=== PATIENT | female | born 1990 | race Caucasian/White ===

== ENCOUNTER 2023-03-09 10:09 | Outpatient (OUT) | payer BC, MEDICAID, SELFPAY ==
--- NOTE | 2023-03-09 | US_ITS ---
[place] [id number] Patient Name: JESENIA SUAREZ MRN: [id number] date: 1990 Sex: F Assigned Patient Location: US Current Patient Location: LAB Accession/Order Number: [id number] Exam Date: 03/09/2023 10:11 Report Date: 03/09/2023 12:19 At the request of: SANTOSH BARLOW Procedure: US OB transvaginal EXAMINATION: US OB transvaginal HISTORY: MISSED MENSES COMPARISON: No relevant comparison available. FINDINGS: Guzman intrauterine gestation Gestational sac: 3.95 cm, 9 weeks 2 days CRL: 2.94 cm, 9 weeks 5 days Yolk sac: 4.0 mm Heart rate: 174 bpm Uterus: Normal, anteverted, anteflexed Cervix: 3.6 cm, closed The ovaries are normal in appearance. Right ovarian corpus luteal cyst US/US OB transvaginal IMPRESSION: Viable intrauterine gestation measuring 9 weeks 5 days Electronically authenticated by: BEBO JORGE Date: 03/09/2023 12:19
== END 2023-03-09 10:10 | disposition home or self-care (01) ==
LOC: US 10:09
PROVIDERS: PCP Family Medicine; Visit Provider Obstetrics & Gynecology
DX: Z34.91 Encounter for supervision of normal pregnancy, unspecified, first trimester (principal); Z3A.09 9 weeks gestation of pregnancy
CPT/HCPCS: 36415; 76817; 83036; 84443; 85025; 86592; 86762; 86803; 86850; 86900; 86901; 87086; 87340; 87389

== ENCOUNTER 2023-03-09 11:30 | Outpatient (OUT) | payer BC, MEDICAID, SELFPAY ==
[2023-03-09 12:22] LABS: Basophils Percent Auto 0.5 % (0.2-2.0); Eosinophils Absolute Auto 0.1 10^3/uL (0.0-0.7); Eosinophils Percent Auto 1.3 % (0.9-7.0); Hematocrit 35.4 % (36.0-48.0); Hemoglobin 11.5 g/dL (12.0-16.0); Immature Granulocytes Abs Auto 0.03 10^3/uL (0.00-0.03); Immature Granulocytes Pct Auto 0.4 % (0.0-0.5); Lymphocytes Absolute Auto 2.2 10^3/uL (1.2-3.8); Lymphocytes Percent Auto 26.7 % (20.5-60.0); Mean Corpuscular HGB Conc 32.5 g/dL (29.9-35.2); Mean Corpuscular Hemoglobin 25.1 pg (26.7-34.0); Mean Corpuscular Volume 77.3 fL (81.0-99.0); Mean Platelet Volume 9.8 fL (9.5-13.5); Monocytes Absolute Auto 0.5 10^3/uL (0.3-0.8); Monocytes Percent Auto 5.8 % (1.7-12.0); Neutrophils Absolute Auto 5.4 10^3/uL (1.4-6.5); Neutrophils Percent Auto 65.3 % (43.0-75.0); Platelet Count 249 10^3/uL (150-450); Red Blood Count 4.58 10^6/uL (4.20-5.40); Red Cell Distribution Width 14.2 % (11.0-15.0); White Blood Count 8.2 10^3/uL (4.0-11.0)
[2023-03-09 12:42] LABS: Estimated Average Glucose 91 mg/dL; Glycohemoglobin A1C 4.8 % (4.5-6.2)
[2023-03-09 12:48] LABS: Thyroid Stimulating Hormone 1.085 uIU/mL (0.358-3.740)
[2023-03-10 06:09] LABS: HBsAg Screen Negative (Negative); HCV Ab Non Reactive (Non Reactive); HIV Ab/p24 Ag Screen Non Reactive (Non Reactive)
[2023-03-10 07:09] LABS: Rubella Antibodies, IgG 2.15 index (Immune >0.99)
[2023-03-10 11:11] LABS: Rapid Plasma Reagin, Quant Non Reactive titer (NonRea<1:1)
== END 2023-03-09 11:31 | disposition home or self-care (01) ==
PROVIDERS: PCP Family Medicine; Visit Provider Obstetrics & Gynecology
DX: Z34.80 Encounter for supervision of other normal pregnancy, unspecified trimester (principal)
CPT/HCPCS: 36415; 83036; 84443; 85025; 86592; 86762; 86803; 86850; 86900; 86901; 87086; 87340; 87389

== ENCOUNTER 2023-05-07 11:48 | Outpatient (OUT) | payer BC, MEDICAID, SELFPAY ==
--- OUTSIDE RECORDS SUMMARY | 2023-05-07 11:56 | XMS_ITS | CCD ---
Author Name Unknown Address [address] [place] [address] Organization [facility] Care Team Providers Care Payment Processor Name Role Phone DIAZ .DARRIN Consulting Unavailable FURLONG, DR SAULO Krishna Primary Care Unavailable DIAZ ., DARRIN Attending Unavailable DIAZ ., DARRIN Admitting Unavailable CAIN ., DR FROST Consulting Unavailable FURLONG, DR SAULO Krishna Primary Care Unavailable CAIN ., DR FROST Attending Unavailable CAIN ., DR FROST Admitting Unavailable ZIEBER, DR VILMA Webb Consulting Unavailable SARITA, DR BEBO Chowdhury Consulting Unavailable FURLONG, DR SAULO Krishna Primary Care Unavailable CAIN ., DR FROST Attending Unavailable CAIN ., DR FROST Admitting Unavailable CAIN ., DR FROST Consulting Unavailable IAIN, MONTRELL Consulting Unavailable FURLONG, DR SAULO Krishna Primary Care Unavailable IAIN, MONTRELL Attending Unavailable IAIN, MONTRELL Admitting Unavailable CAIN ., DR FROST Consulting Unavailable FURLONG, DR SAULO Krishna Primary Care Unavailable CAIN ., DR FROST Attending Unavailable CAIN ., DR FROST Admitting Unavailable FURLONG, DR SAULO Krishna Primary Care Unavailable CAIN ., DR FROST Attending Unavailable CAIN ., DR FROST Admitting Unavailable PAY ., DR GARLAND Consulting Unavailable PAY ., DR GARLAND Attending Unavailable PAY ., DR GARLAND Admitting Unavailable FURLONG, DR SAULO Krishna Primary Care Unavailable CAIN ., DR FROST Consulting Unavailable FURLONG, DR SAULO Krishna Primary Care Unavailable CAIN ., DR FROST Attending Unavailable CAIN ., DR FROST Admitting Unavailable HILLARY MURPHY Consulting Unavailable LORENZO GARZA Consulting Unavailable CAIN ., DR FROST Procedure Practitioner Unavail able ZIEBER, DR VILMA Webb Consulting Unavailable REQUEST, DR PARSONS LISTED Primary Care Unavaila ble DIAZ ., DARRIN Attending Unavailable DIAZ ., DARRIN Admitting Unavailable DIAZ ., DARRIN Consulting Unavailable CAIN ., DR FROST Consulting Unavailable FURLONG, DR SAULO Krishna Primary Care Unavailable CAIN ., DR FROST Attending Unavailable CAIN ., DR FROST Admitting Unavailable CAIN ., DR FROST Consulting Unavailable FURLONG, DR SAULO Krishna Primary Care Unavailable CAIN ., DR FROST Attending Unavailable CAIN ., DR FROST Admitting Unavailable CAIN ., DR FROST Consulting Unavailable FURLONG, DR SAULO Krishna Primary Care Unavailable CAIN ., DR FROST Attending Unavailable CAIN ., DR FROST Admitting Unavailable CAIN ., DR FROST Consulting Unavailable FURLONG, DR SAULO Krishna Primary Care Unavailable CAIN ., DR FROST Attending Unavailable CAIN ., DR FROST Admitting Unavailable ZIEBER, DR VILMA Webb Consulting Unavailable DIAZ ., DARRIN Consulting Unavailable FURLONG, DR SAULO Krishna Primary Care Unavailable CAIN ., DR FROST Attending Unavailable CAIN ., DR FROST Admitting Unavailable CAIN, SANTOSH Attending Unavailable HEALTH, 360 Referring Unavailable ROMAN GUSTAFSON Primary Care Unavailable Allergies Allergy Classification Reported Allergen(s) Allergy Type Date of Onset Reaction(s) Facility (1 source) Penicillins; Translations: [PENICILLINS] Propensity to adverse reactions to drug (disorder) 7 [facility] Rep[facility] Problems Active Problems Problem Classification Problem Date Documented Date Episodic/Chronic Esophageal disorders (1 source) Gastro-esophageal reflux disease without esophagitis; Translations: [GERD WITHOUT ESOPHAGITIS] Onset: 08-11-2022 Chronic Menstrual disorders (4 sources) Irregular menstruation, unspecified; Translations: [IRREGULAR MENSTRUATION UNSPECIFIED] Onset: 01-17-2022 Chronic OB-related trauma to perineum and vulva (1 source) Fourth degree perineal laceration during delivery; Translations: [FOURTH DEG PERINEAL LAC DUR DELIV] Onset: 08-11-2022 Episodic Other aftercare (1 source) 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; Translations: [OTH BILINGUAL ACCOUNT MANAGER CURRENT DRUG THERAPY] Onset: 08-11-2022 Episodic Other complications of ; puerperium affecting management of mother (3 sources) Streptococcus B carrier state complicating childbirth; Translations: [STREP B MARIEE STATE COMP CHILDBIRTH] Onset: 08-02-2022 Episodic Other complications of ; puerperium affecting management of mother (1 source) Diseases of the digestive system complicating childbirth; Translations: [DZ DIGESTIVE SYSTEM COMP CHILDBIRTH] Onset: 08-11-2022 Episodic Other complications of (4 sources) Uterine size-date discrepancy, third trimester; Translations: [UTERINE SZ-DATE DISCREPANCY 3RD TRI] Onset: 06-15-2022 Episodic Other complications of (4 sources) Other viral diseases complicating , third trimester; Translations: [OTH VIRAL DZ COMP PREG THIRD TRI] Onset: 06-02-2022 Episodic Other female genital disorders (4 sources) Albachermias; Translations: [MITTELSCHMERZ] Onset: 11-12-2021 Chronic Other and delivery including normal (20 sources) Encounter for routine follow-up; Translations: [Single live ] Onset: 01-17-2022 Episodic Residual codes; unclassified (1 source) 39 weeks gestation of ; Translations: [39 WEEKS GESTATION OF ] Onset: 08-11-2022 Episodic Residual codes; unclassified (1 source) 32 weeks gestation of ; Translations: [32 WEEKS GESTATION OF ] Onset: 06-24-2022 Episodic Residual codes; unclassified (1 source) 31 weeks gestation of ; Translations: [31 WEEKS GESTATION OF ] Onset: 06-05-2022 Episodic Residual codes; unclassified (1 source) Illness, unspecified; Translations: [Illness, unspecified] Onset: 04-23-2023 Episodic Screening and history of mental health and substance abuse codes (1 source) Personal history of nicotine dependence; Translations: [PERSONAL HISTORY OF NICOTINE DEPEND] Onset: 08-11-2022 Episodic Viral infection (1 source) COVID-19; Translations: [COVID-19] Onset: 06-05-2022 Past or Other Problems Problem Classification Problem Date Documented Date Episodic/Chronic Immunizations and screening for infectious disease (2 sources) Contact with and (suspected) exposure to infections with a predominantly sexual mode of transmission; Translations: [Encounter for screening for human papillomavirus (HPV)] Onset: 04-21-2022 Episodic Other complications of (1 source) Maternal care for other abnormalities of pelvic organs, first trimester; Translations: [[facility]N PELV ORGAN 1ST TRI] Onset: 01-02-2022 Episodic Other female genital disorders (5 sources) Other specified noninflammatory disorders of vagina; Translations: [OTH SPEC NONINFLAMMATORY D/O VAGINA] Onset: 04-20-2022 Episodic Other screening for suspected conditions (not mental disorders or infectious disease) (12 sources) Encounter for screening for malignant neoplasm of cervix; Translations: [Encounter for screening, unspecified] Onset: 11-09-2021 Episodic Ovarian cyst (1 source) Other ovarian cyst, right side; Translations: [OTHER OVARIAN CYST RIGHT SIDE] Onset: 11-15-2021 Episodic Residual codes; unclassified (1 source) 8 weeks gestation of ; Translations: [8 WEEKS GESTATION OF ] Onset: 01-02-2022 Episodic Results Test Name Value Interpretation Reference Range Facility VZV IgG IA Ql (S)on 04-23-19 24 VARICELLA IgG 0.7 AI Normal <0.9 [facility] Comment on above: Result Comment: Interpretation-------- <0.9 Negative 0.9 - 1.0 Equivocal >1.0 Positive Performed By: #### 1 5410-4 #### [facility] ([id number]) [address], [address] [place] [address] CBC AUTO DIFFon 08-04-2022 BASO # 0.0 103/ul Normal 0.0-0.1 [facility] Comment on above: Performed By: #### C BC #### [facility] [address] [address] [address] Yassine Zarate Basophils/100 WBC (Bld) 0.3 % Normal 0.2-2.0 [facility] Comment on above: Performed By: #### C BC #### [facility] [address] [address] [address] Yassine Zarate EO # 0.1 103/ul Normal 0.0-0.7 [facility] Comment on above: Performed By: #### C BC #### [facility] [address] [address] [address] Yassine Zarate Eosinophils/100 WBC (Bld) 0.8 % Critically low 0.9-7.0 [facility] Comment on above: Performed By: #### C BC #### [facility] [address] [place] [address] Dr. Yassine Zarate Erythrocyte distribution width (RBC) [Ratio] 14.1 % Normal 11.0-15.0 [facility] Comment on above: Performed By: #### C BC #### [facility] [address] [place] [address] Dr. Yassine Zarate Hematocrit (Bld) [Volume fraction] 31.8 % Critically low 36.0-48.0 [facility] Comment on above: Performed By: #### C BC #### [facility] [address] [place] [address] Dr. Yassine Zarate Hemoglobin (Bld) [Mass/Vol] 10.3 g/dL Critically low 12.0-16.0 [facility] Comment on above: Performed By: #### C BC #### [facility] [address] [place] [address] Dr. Yassine Zarate IG # 0.10 10e3/ul Critically high 0.00-0.03 [facility] Comment on above: Performed By: #### C BC #### [facility] [address] [place] [address] Dr. Yassine Zarate IG % 0.8 % Critically high 0.0-0.5 [facility] Comment on above: Performed By: #### C BC #### [facility] [address] [place] [address] Dr. Yassine Zarate LYMPH # 1.9 103/ul Normal 1.2-3.8 [facility] Comment on above: Performed By: #### C BC #### [facility] [address] [place] [address] Dr. Yassine Zarate Lymphocytes/100 WBC (Bld) 14.1 % Critically low 20.5-60.0 [facility] Comment on above: Performed By: #### C BC #### [facility] [address] [address] [address] Yassine Zarate MANUAL DIFF REQ NO Normal [facility] Comment on above: Performed By: #### C BC #### [facility] [address] [place] [address] Dr. Yassine Zarate MCH (RBC) [Entitic mass] 25.6 pg Critically low 26.7-34.0 [facility] Comment on above: Performed By: #### C BC #### [facility] [address] [place] [address] Dr. Yassine Zarate MCHC (RBC) [Mass/Vol] 32.4 g/dL Normal 29.9-35.2 [facility] Comment on above: Performed By: #### C BC #### [facility] [address] [place] [address] Dr. Yassine Zarate MCV (RBC) [Entitic vol] 79.1 fL Critically low 81.0-99.0 [facility] Comment on above: Performed By: #### C BC #### [facility] [address] [place] [address] Dr. Yassine Zarate MONO # 0.9 103/ul Critically high 0.3-0.[address] [facility] Comment on above: Performed By: #### C BC #### [facility] [address] [place] [address] Dr. Yassine Zarate Monocytes/100 WBC (Bld) 6.6 % Normal 1.7-12.0 [facility] Comment on above: Performed By: #### C BC #### [facility] [address] [place] [address] Dr. Yassine Zarate NEUT # 10.3 103/ul Critically high 1.4-6.5 The [facility] Comment on above: Performed By: #### C BC #### [facility] [address] [place] [address] Dr. Yassine Zarate Neutrophils/100 WBC (Bld) 77.4 % Critically high 43.0-75.0 [facility] Comment on above: Performed By: #### C BC #### [facility] [address] [address] [address] Yassine Zarate Platelet mean volume (Bld) [Entitic vol] 9.6 fL Normal 9.5-13.5 [facility] Comment on above: Performed By: #### C BC #### [facility] [address] [place] [address] Dr. Yassine Zarate PLT 251 103/ul Normal 150-450 [facility] Comment on above: Performed By: #### C BC #### [facility] [address] [address] [address] Yassine Zarate RBC 4.02 106/ul Critically low 4.20-5.40 [facility] Comment on above: Performed By: #### C BC #### [facility] [address] [place] [address] Dr. Yassine Zarate WBC 13.3 103/ul Critically high 4.0-11.0 [facility] Comment on above: Performed By: #### C BC #### [facility] [address] [place] [address] Dr. Yassine Zarate CBC AUTO DIFFon 08-02-2022 BASO # 0.1 103/ul Normal 0.0-0.1 [facility] Comment on above: Performed By: #### C BC #### [facility] [address] [place] [address] Dr. Yassine Zarate Basophils/100 WBC (Bld) 0.5 % Normal 0.2-2.0 [facility] Comment on above: Performed By: #### C BC #### [facility] [address] [place] [address] Dr. Yassine Zarate EO # 0.1 103/ul Normal 0.0-0.7 [facility] Comment on above: Performed By: #### C BC #### [facility] [address] [place] [address] Dr. Yassine Zarate Eosinophils/100 WBC (Bld) 1.1 % Normal 0.9-7.0 [facility] Comment on above: Performed By: #### C BC #### [facility] [address] [address] [address] Yassine Zarate Erythrocyte distribution width (RBC) [Ratio] 13.9 % Normal 11.0-15.0 [facility] Comment on above: Performed By: #### C BC #### [facility] [address] [place] [address] Dr. Yassine Zarate Hematocrit (Bld) [Volume fraction] 34.8 % Critically low 36.0-48.0 [facility] Comment on above: Performed By: #### C BC #### [facility] [address] [place] [address] Dr. Yassine Zarate Hemoglobin (Bld) [Mass/Vol] 11.5 g/dL Critically low 12.0-16.0 [facility] Comment on above: Performed By: #### C BC #### [facility] [address] [place] [address] Dr. Yassine Zarate IG # 0.15 10e3/ul Critically high 0.00-0.03 [facility] Comment on above: Performed By: #### C BC #### [facility] [address] [place] [address] Dr. Yassine Zarate IG % 1.3 % Critically high 0.0-0.5 [facility] Comment on above: Performed By: #### C BC #### [facility] [address] [place] [address] Dr. Yassine Zarate LYMPH # 2.5 103/ul Normal 1.2-3.8 [facility] Comment on above: Performed By: #### C BC #### [facility] [address] [place] [address] Dr. Yassine Zarate Lymphocytes/100 WBC (Bld) 20.6 % Normal 20.5-60.0 [facility] Comment on above: Performed By: #### C BC #### [facility] [address] [place] [address] Dr. Yassine Zarate MANUAL DIFF REQ NO Normal [facility] Comment on above: Performed By: #### C BC #### [facility] [address] [address] [address] Yassine Zarate MCH (RBC) [Entitic mass] 25.6 pg Critically low 26.7-34.0 [facility] Comment on above: Performed By: #### C BC #### [facility] [address] [place] [address] Dr. Yassine Zarate MCHC (RBC) [Mass/Vol] 33.0 g/dL Normal 29.9-35.2 [facility] Comment on above: Performed By: #### C BC #### [facility] [address] [place] [address] Dr. Yassien Zarate MCV (RBC) [Entitic vol] 77.5 fL Critically low 81.0-99.0 [facility] Comment on above: Performed By: #### C BC #### [facility] [address] [place] [address] Dr. Yassine Zarate MONO # 0.7 103/ul Normal 0.3-0.8 [facility] Comment on above: Performed By: #### C BC #### [facility] [address] [place] [address] Dr. Yassine Zarate Monocytes/100 WBC (Bld) 6.1 % Normal 1.7-12.0 [facility] Comment on above: Performed By: #### C BC #### [facility] [address] [place] [address] Dr. Yassine Zarate NEUT # 8.4 103/ul Critically high 1.4-6.[address] [facility] Comment on above: Performed By: #### C BC #### [facility] [address] [place] [address] Dr. Yassine Zarate Neutrophils/100 WBC (Bld) 70.4 % Normal 43.0-75.0 [facility] Comment on above: Performed By: #### C BC #### [facility] [address] [place] [address] Dr. Yassine Zarate Platelet mean volume (Bld) [Entitic vol] 9.6 fL Normal 9.5-13.5 [facility] Comment on above: Performed By: #### C BC #### [facility] [address] [address] [address] Yassine Zarate PLT 294 103/ul Normal 150-450 [facility] Comment on above: Performed By: #### C BC #### [facility] [address] [address] [address] Yassine Zarate RBC 4.49 106/ul Normal 4.20-5.40 [facility] Comment on above: Performed By: #### C BC #### [facility] [address] [address] [address] Yassine Zarate WBC 11.9 103/ul Critically high 4.0-11.0 [facility] Comment on above: Performed By: #### C BC #### [facility] [address] [place] [address] Dr. Yassine Zarate DRUG SCREEN RAPID (URINE)on 08-02-2022 AMP Negative Normal NEGATIVE [facility] Comment on above: Performed By: #### D RUGRPD #### [facility] [address] [place] [address] Dr. Yassine Zarate BAR Negative Normal NEGATIVE [facility] Comment on above: Performed By: #### D RUGRPD #### [facility] [address] [place] [address] Dr. Yassine Zarate BUP Negative Normal NEGATIVE [facility] Comment on above: Performed By: #### D RUGRPD #### [facility] [address] [place] [address] Dr. Yassine Zarate BZO Negative Normal NEGATIVE [facility] Comment on above: Performed By: #### D RUGRPD #### [facility] [address] [place] [address] Dr. Yassine Zarate RACIEL Negative Normal NEGATIVE [facility] Comment on above: Performed By: #### D RUGRPD #### [facility] [address] [place] [address] Dr. Yassine Zarate CUT-OFFS SEE BELOW Normal [facility] Comment on above: Result Comment: AMP (Amphetamine): 500ng/mL, BAR (Barbituates): 200 ng/mL, BZO (Benzodiazepines): 150 ng/mL, BUP (Buprenorphine): 10 ng/mL, RACIEL (Cocaine): 150 ng/mL, mAMP (Methamphetamine): 500 ng/mL, MTD (Methadone): 200 ng/mL, OPI (Opiates): 100 ng/mL, OXY (Oxycodone): 100 ng/mL, PCP (Phencyclidine): 25 ng/mL, PPX (Propoxyphene): 300 ng/mL, THC (Cannabinoids): 50 ng/mL, TCA (Trycyclic Antidepressants): 300 ng/mL Performed By: #### D RUGRPD #### [facility] [address] [place] [address] Dr. Yassine Zarate DRUG CUT HEADER DRUG CLASS TEST SYSTEM CUT-OFF CONCENTRATIONS ARE FOLLOWS: Normal [facility] Comment on above: Performed By: #### D RUGRPD #### [facility] [address] [place] [address] Dr. Yassine Zarate mAMP Negative Normal NEGATIVE [facility] Comment on above: Performed By: #### D RUGRPD #### [facility] [address] [place] [address] Dr. Yassine Zarate MTD Negative Normal NEGATIVE [facility] Comment on above: Performed By: #### D RUGRPD #### [facility] [address] [place] [address] Dr. Yassine Zarate OPI Negative Normal NEGATIVE [facility] Comment on above: Performed By: #### D RUGRPD #### [facility] [address] [place] [address] Dr. Yassine Zarate OXY Negative Normal NEGATIVE [facility] Comment on above: Performed By: #### D RUGRPD #### [facility] [address] [place] [address] Dr. Yassine Zarate PCP Negative Normal NEGATIVE [facility] Comment on above: Performed By: #### D RUGRPD #### [facility] [address] [place] [address] Dr. Yassine Zarate PPX Negative Normal NEGATIVE [facility] Comment on above: Performed By: #### D RUGRPD #### [facility] [address] [address] [address] Yassine Zarate TCA Negative Normal NEGATIVE [facility] Comment on above: Performed By: #### D RUGRPD #### [facility] [address] [place] [address] Dr. Yassine Zarate THC Negative Normal NEGATIVE [facility] Comment on above: Performed By: #### D RUGRPD #### [facility] [address] [address] [address] Yassine Zarate TYPE AND SCREENon 08-02-2022 TYPE AND SCREEN Negative Normal [facility] Comment on above: Performed By: #### C BC #### [facility] [address] [place] [address] Dr. Yassine Zarate GROUP B STREP CULTUREon S. agalactiae Ag Ql (Unsp spec) Isolate 1 Streptococcus agalactiae Moderate growth of ORGANISM 1 Streptococcus agalactiae ANTIBIOTIC M.I.C RX STATUS Benzylpenicillin <=0.06 S F Ampicillin <=0.25 S F Cefotaxime <=0.12 S F Ceftriaxone <=0.12 S F Levofloxacin 0.5 S F Inducible Clindamycin Resistance Neg NEG F Erythromycin <=0.12 S F Clindamycin <=0.25 S F Linezolid <=2 S F Vancomycin 0.5 S F Tetracycline >=16 R F Normal [facility] Comment on above: Performed By: #### C BC #### [facility] [address] [place] [address] Dr. Yassine Zarate US PREG GROWTHon 06-15-2022 US PREG GROWTH EXAMINATION: US PREG GROWTH HISTORY: Uterine size for dates discrepancy COMPARISON: Ultrasound anatomy 03/21/2022 FINDINGS: Heart Rate: 141.0 bpm Number: 1.0 Position: CEPHALIC Amniotic Fluid Volume: 12.7 cm Maximum Vertical Pocket: 4.5 cm BIOMETRY: BPD: 8.1 cm cm; 32 weeks 2 days; 28% HC: 29.4 cmcm; 32 weeks 3 days; 9% AC: 28.0 cm cm; 32 weeks 0 days; 27% FL: 6.2 cm cm; 31 weeks 6 days; 16% EFW: 1894.8 grams; 19% FL/AC: 22.0 FL/BPD: 76.4 HC/AC: 1.1 GESTATIONAL AGE: Age by EDC: 32 weeks 6 days THA by EDC: 08/04/2022 Age by US: 32 weeks 1 day THA by US: 08/09/2022 IMPRESSION: 1. Single live intrauterine with growth detailed above. Electronically authenticated by: VILMA IRISH Date: 2022-06-15 15:[address] [facility] PAP ACOG PANEL 2: 21 to 29on 04-25-2022 . . Normal [facility] Comment on above: Performed By: #### C BC #### [facility] [address] [address] [address] Yassine Zarate Age Gdln ACOG Testing - [facility] Comment on above: Performed By: #### C BC #### [facility] [address] [place] [address] Dr. Yassine Zarate DIAGNOSIS: Comment [facility] Comment on above: Result Comment: NEGA TIVE FOR INTRAEPITHELIAL LESION OR MALIGNANCY. CELLULAR CHANGES ASSOCIATED WITH INFLAMMATION ARE PRESENT. Performed By: #### C BC #### [facility] [address] [address] [address] Yassine Zarate Methodology: Comment [facility] Comment on above: Result Comment: This liquid based ThinPrep(R) pap test was screened with the use of an image guided system. Performed By: #### C BC #### [facility] [address] [address] [address] Yassine Zarate Note: Comment [facility] Comment on above: Result Comment: The Pap smear is a screening test designed to aid in the detection of premalignant and malignant conditions of the uterine cervix. It is not a diagnostic procedure and should not be used as the sole means of detecting cervical cancer. Both false-positive and false-negative reports do occur. . Performed By: #### C BC #### [facility] [address] [place] [address] Dr. Yassine Zarate Performed by: Comment [facility] Comment on above: Result Comment: Marko Christensen, Caisson Worker (ASCP) Performed By: #### C BC #### [facility] [address] [place] [address] Dr. Yassine Zarate Reflex Criteria: Comment Normal [facility] Comment on above: Result Comment: The HPV DNA reflex criteria were not met with this specimen result therefore, no HPV testing was performed. . Performed By: #### C BC #### [facility] [address] [place] [address] Dr. Yassine Zarate Specimen adequacy: Comment Normal [facility] Comment on above: Result Comment: Sati sfactory for evaluation. No endocervical component is identified. Performed By: #### C BC #### [facility] [address] [place] [address] Dr. Yassine Zarate CHLAMYDIA/GONOCOCCUS SARAH (SW AB/URINE/PAPon 04-24-2022 Chlamydia trachomatis, SARAH Negative Normal Negative [facility] Comment on above: Performed By: #### C BC #### [facility] [address] [place] [address] Dr. Yassine Zarate Neisseria gonorrhoeae, SARAH Negative Normal Negative [facility] Comment on above: Performed By: #### C BC #### [facility] [address] [place] [address] Dr. Yassine Zarate VAGINITIS/VAGINOSIS DNA PROB Emmanuel 04-22-2022 Radha species Positive Abnormal Negative [facility] Comment on above: Performed By: #### V AGINT #### [facility] [address] [place] [address] Dr. Yassine Zarate Gardnerella vaginalis Negative Normal Negative [facility] Comment on above: Performed By: #### V AGINT #### [facility] [address] [place] [address] Dr. Yassine Zarate Trichomonas vaginalis Negative Normal Negative [facility] Comment on above: Performed By: #### V AGINT #### [facility] [address] [place] [address] Dr. Yassine Zarate CBC AUTO DIFFon 04-20-2022 BASO # 0.0 103/ul Normal 0.0-0.1 [facility] Comment on above: Performed By: #### C BC #### [facility] [address] [address] [address] Yassine Zarate Basophils/100 WBC (Bld) 0.4 % Normal 0.2-2.0 [facility] Comment on above: Performed By: #### C BC #### [facility] [address] [address] [address] Yassine Zarate EO # 0.1 103/ul Normal 0.0-0.7 [facility] Comment on above: Performed By: #### C BC #### [facility] [address] [address] [address] Yassine Zarate Eosinophils/100 WBC (Bld) 1.0 % Normal 0.9-7.0 [facility] Comment on above: Performed By: #### C BC #### [facility] [address] [address] [address] Yassine Zarate Erythrocyte distribution width (RBC) [Ratio] 12.3 % Normal 11.0-15.0 [facility] Comment on above: Performed By: #### C BC #### [facility] [address] [address] [address] Yassine Zarate Hematocrit (Bld) [Volume fraction] 34.8 % Critically low 36.0-48.0 [facility] Comment on above: Performed By: #### C BC #### [facility] [address] [address] [address] Yassine Zarate Hemoglobin (Bld) [Mass/Vol] 11.4 g/dL Critically low 12.0-16.0 [facility] Comment on above: Performed By: #### C BC #### [facility] [address] [address] [address] Yassine Zarate IG # 0.07 10e3/ul Critically high 0.00-0.03 [facility] Comment on above: Performed By: #### C BC #### [facility] [address] [address] [address] Yassine Zarate IG % 0.8 % Critically high 0.0-0.5 [facility] Comment on above: Performed By: #### C BC #### [facility] [address] [place] [address] Dr. Yassine Zarate LYMPH # 1.9 103/ul Normal 1.2-3.8 [facility] Comment on above: Performed By: #### C BC #### [facility] [address] [place] [address] Dr. Yassine Zarate Lymphocytes/100 WBC (Bld) 20.6 % Normal 20.5-60.0 [facility] Comment on above: Performed By: #### C BC #### [facility] [address] [place] [address] Dr. Yassine Zarate MANUAL DIFF REQ NO Normal [facility] Comment on above: Performed By: #### C BC #### [facility] [address] [place] [address] Dr. Yassine Zarate MCH (RBC) [Entitic mass] 26.3 pg Critically low 26.7-34.0 [facility] Comment on above: Performed By: #### C BC #### [facility] [address] [place] [address] Dr. Yassine Zarate MCHC (RBC) [Mass/Vol] 32.8 g/dL Normal 29.9-35.2 [facility] Comment on above: Performed By: #### C BC #### [facility] [address] [place] [address] Dr. Yassine Zarate MCV (RBC) [Entitic vol] 80.2 fL Critically low 81.0-99.0 [facility] Comment on above: Performed By: #### C BC #### [facility] [address] [place] [address] Dr. Yassine Zarate MONO # 0.5 103/ul Normal 0.3-0.8 [facility] Comment on above: Performed By: #### C BC #### [facility] [address] [place] [address] Dr. Yassine Zarate Monocytes/100 WBC (Bld) 5.2 % Normal 1.7-12.0 [facility] Comment on above: Performed By: #### C BC #### [facility] [address] [place] [address] Dr. Yassine Zarate NEUT # 6.5 103/ul Normal 1.4-6.5 [facility] Comment on above: Performed By: #### C BC #### [facility] [address] [address] [address] Yassine Zarate Neutrophils/100 WBC (Bld) 72.0 % Normal 43.0-75.0 [facility] Comment on above: Performed By: #### C BC #### [facility] [address] [address] [address] Yassine Zarate Platelet mean volume (Bld) [Entitic vol] 9.2 fL Critically low 9.5-13.5 [facility] Comment on above: Performed By: #### C BC #### [facility] [address] [place] [address] Dr. Yassine Zarate PLT 270 103/ul Normal 150-450 [facility] Comment on above: Performed By: #### C BC #### [facility] [address] [place] [address] Dr. Yassine Zarate RBC 4.34 106/ul Normal 4.20-5.40 [facility] Comment on above: Performed By: #### C BC #### [facility] [address] [place] [address] Dr. Yassine Zarate WBC 9.1 103/ul Normal 4.0-11.0 [facility] Comment on above: Performed By: #### C BC #### [facility] [address] [place] [address] Dr. Yassine Zarate GLUCOSE - 1HRon 04-20-2022 Glucose [Mass/Vol] 97 mg/dL Normal 74-106 [facility] Comment on above: Performed By: #### C BC #### [facility] [address] [place] [address] Dr. Yassine Zarate AFP MATERNAL FOR SPINA BIFID Aon 03-23-2022 AFP MoM 1.21 Normal [facility] Comment on above: Performed By: #### A FPMAT #### [facility] [address] [address] [address] Yassine Zarate AFP Value 69.6 ng/mL Normal [facility] Comment on above: Performed By: #### A FPMAT #### [facility] [address] [address] [address] Yassine Zarate AFP, Serum for Spina Bifida Report Normal [facility] Comment on above: Performed By: #### A FPMAT #### [facility] [address] [place] [address] Dr. Yassine Zarate Comment Comment Normal [facility] Comment on above: Result Comment: Shakila Dickinson, Ph.D., [facility] Director . References: Available Upon Request. . Multiples Of Median Cutoffs For AFP Elevations Guzman 2.5 Black 2.8 IDD 2.0 Twins 4.5 Abbreviation Definitions IDD - Insulin Dep Diabetes OSBR - Open Spina Bifida Risk . For further inquiries contact [email or web address] at [phone]. . This test was developed and its performance characteristics determined by [employer]. It has not been cleared or approved by the Food and Drug Administration. Performed By: #### A FPMAT #### [facility] [address] [place] [address] Dr. Yassine Larsen Age Collection Date 20.[address] [facility] Comment on above: Performed By: #### A FPMAT #### [facility] [address] [place] [address] Dr. Yassine Zarate Gestat, Age Based on THA Normal [facility] Comment on above: Result Comment: 07/2022 Recalculations are not recommended when gestational dating by LMP and ultrasound are within 10 days. Performed By: #### A FPMAT #### [facility] [address] [place] [address] Dr. Yassine Zarate Insulin Dep Diabetes No Normal [facility] Comment on above: Performed By: #### A FPMAT #### [facility] [address] [place] [address] Dr. Yassine Zarate Interpretation Comment Normal [facility] Comment on above: Result Comment: Inte rpretation: Screen Negative . This result is screen negative for OSB. The AFP MoM calculated is based on the gestational age provided. MS-AFP can identify up to 80% of open neural tube defects. Closed neural tube defects and some open defects may not be detected by this test. This test does not screen for Down Syndrome or Trisomy 18. If screening for Down Syndrome or Trisomy 18 is desired, contact [employer] to discuss available options. The [employer] [place] [employer] recommends amniocentesis be offered to women age 35 and older. Performed By: #### A FPMAT #### [facility] [address] [place] [address] Dr. Yassine Zarate [age] Normal [facility] Comment on above: Performed By: #### A FPMAT #### [facility] [address] [place] [address] Dr. Yassine Zarate Multiple Gestation No Normal [facility] Comment on above: Performed By: #### A FPMAT #### [facility] [address] [place] [address] Dr. Yassine Zarate OSBR Risk 1 IN 6301 Normal [facility] Comment on above: Performed By: #### A FPMAT #### [facility] [address] [place] [address] Dr. Yassine Zarate PDF . [facility] Comment on above: Performed By: #### A FPMAT #### [facility] [address] [place] [address] Dr. Yassine Zarate Race Normal [facility] Comment on above: Performed By: #### A FPMAT #### [facility] [address] [place] [address] Dr. Yassine Zarate Test Results: Negative Normal [facility] Comment on above: Performed By: #### A FPMAT #### [facility] [address] [place] [address] Dr. Yassine Zarate US PREG ANATOMY SINGLEon US PREG ANATOMY SINGLE EXAMINATION: US PREG ANATOMY SINGLE HISTORY: anatomy study COMPARISON: No relevant comparison available. TECHNIQUE: Transabdominal sonographic examination was performed for obstetrical and evaluation. FINDINGS: Number: 1 Heart Rate: 140.0 bpm H.B. /min Amniotic Fluid Volume: Subjectively normal Placental Location: POSTERIOR with lower margin 3.3 cm from os. Cervix Length: 3.6 cm; closed. The ANATOMY: Normal Structures -cerebellum, choroid plexus, cisterna magna, lateral cerebral ventricles, orbits, midline falx, hard palate, four-chamber heart, RVOT, LVOT, stomach, kidneys, bladder, umbilical cord insertion into abdomen, three-vessel cord, cervical spine, thoracic spine, lumbar spine, sacral spine, right upper extremity, left upper extremity, right lower extremity, left lower extremity. SUBOPTIMALLY SEEN: None ABNORMALITIES: None BIOMETRY: BPD: 4.7 cm 20 weeks 1 days HC: 17.4 cm 20 weeks 0 days AC: 15.9 cm 21 weeks 0 days FL: 3.6 cm 21 weeks 2 days EFW:392.4 grams; 70% FL/AC: 22.4 FL/BPD: 76.0 HC/AC: 1.1 GESTATIONAL AGE: Age by EDC: 20 weeks 4 days THA by EDC: 08/04/2022 Age by current US: 20 weeks 4 days THA by current US: 08/04/2022 IMPRESSION: 1. Single live intrauterine with growth detailed above. Electronically authenticated by: VILMA COBURN Date: 2022-03-21 20:38 Normal [facility] HEP B SURFACE ANTIGEN SCREEN on 01-18-2022 HBsAg Screen Negative Normal Negative [facility] Comment on above: Performed By: #### H BSANS #### [facility] [address] [address] [address] Yassine Zarate HEPATITIS C VIRUS AB W/ REFL EX QUANTon 01-18-2022 HCV AB <0.1 Normal 0.0-0.9 [facility] Comment on above: Performed By: #### H CVPCRR #### [facility] [address] [address] [address] Yassine Zarate Interpretation: Comment Normal [facility] Comment on above: Result Comment: Nega tive Not infected with HCV, unless recent infection is suspected or other evidence exists to indicate HCV infection. Performed By: #### H CVPCRR #### [facility] [address] [address] [address] Yassine Zarate HIV 1 AND 2 WITH REFLEXon HIV Screen 4th Generation wRfx Non-Reactive Normal Non Reactive [facility] Comment on above: Result Comment: HIV Negative HIV-1/HIV-2 antibodies and HIV-1 p24 antigen were NOT detected. There is no laboratory evidence of HIV infection. Performed By: #### C BC #### [facility] [address] [place] [address] Dr. Yassine Zarate RPR QUANTon 01-18-2022 Rapid Plasma Reagin, Quant Non-Reactive Normal NonRea<1:1 [facility] Comment on above: Result Comment: Plea se Note: This test does not meet current guidelines for screening and diagnosis of syphilis. This test is intended for following treatment response in patients being treated for syphilis infection. To screen for syphilis infection, a reflex cascade that includes both RPR and a treponema-specific assay should be utilized, such as Treponema pallidum (Syphilis) Screening Person (468978) or Rapid Plasma Reagin (RPR) Test With Reflex to Quantitative RPR and Confirmatory Treponema pallidum Antibodies (824339). Performed By: #### C BC #### [facility] [address] [place] [address] Dr. Yassine Zarate RUBELLA AB IGGon 01-18-2022 Rubella Antibodies, IgG 1.96 index Normal Immune >0.99 [facility] Comment on above: Result Comment: Non- immune <0.90 Equivocal 0.90 - 0.99 Immune >0.99 Performed By: #### C BC #### [facility] [address] [place] [address] Dr. Yassine Zarate CBC AUTO DIFFon 01-17-2022 BASO # 0.0 103/ul Normal 0.0-0.1 [facility] Comment on above: Performed By: #### C BC #### [facility] [address] [place] [address] Dr. Yassine Zarate Basophils/100 WBC (Bld) 0.4 % Normal 0.2-2.0 [facility] Comment on above: Performed By: #### C BC #### [facility] [address] [place] [address] Dr. Yassine Zarate EO # 0.1 103/ul Normal 0.0-0.7 [facility] Comment on above: Performed By: #### C BC #### [facility] [address] [place] [address] Dr. Yassine Zarate Eosinophils/100 WBC (Bld) 1.4 % Normal 0.9-7.0 [facility] Comment on above: Performed By: #### C BC #### [facility] [address] [place] [address] Dr. Yassine Zarate Erythrocyte distribution width (RBC) [Ratio] 12.2 % Normal 11.0-15.0 [facility] Comment on above: Performed By: #### C BC #### [facility] [address] [place] [address] Dr. Yassine Zarate Hematocrit (Bld) [Volume fraction] 36.9 % Normal 36.0-48.0 [facility] Comment on above: Performed By: #### C BC #### [facility] [address] [place] [address] Dr. Yassine Zarate Hemoglobin (Bld) [Mass/Vol] 12.1 g/dL Normal 12.0-16.0 [facility] Comment on above: Performed By: #### C BC #### [facility] [address] [place] [address] Dr. Yassine Zarate IG # 0.03 10e3/ul Normal 0.00-0.03 [facility] Comment on above: Performed By: #### C BC #### [facility] [address] [place] [address] Dr. Yassine Zarate IG % 0.4 % Normal 0.0-0.5 [facility] Comment on above: Performed By: #### C BC #### [facility] [address] [place] [address] Dr. Yassine Zarate LYMPH # 2.0 103/ul Normal 1.2-3.8 [facility] Comment on above: Performed By: #### C BC #### [facility] [address] [address] [address] Yassine Zarate Lymphocytes/100 WBC (Bld) 23.8 % Normal 20.5-60.0 [facility] Comment on above: Performed By: #### C BC #### [facility] [address] [address] [address] Yassine Zarate MANUAL DIFF REQ NO Normal [facility] Comment on above: Performed By: #### C BC #### [facility] [address] [place] [address] Dr. Yassine Zarate MCH (RBC) [Entitic mass] 26.9 pg Normal 26.7-34.0 [facility] Comment on above: Performed By: #### C BC #### [facility] [address] [place] [address] Dr. Yassine Zarate MCHC (RBC) [Mass/Vol] 32.8 g/dL Normal 29.9-35.2 [facility] Comment on above: Performed By: #### C BC #### [facility] [address] [place] [address] Dr. Yassine Zarate MCV (RBC) [Entitic vol] 82.0 fL Normal 81.0-99.0 [facility] Comment on above: Performed By: #### C BC #### [facility] [address] [place] [address] Dr. Yassine Zarate MONO # 0.4 103/ul Normal 0.3-0.8 [facility] Comment on above: Performed By: #### C BC #### [facility] [address] [place] [address] Dr. Yassine Zarate Monocytes/100 WBC (Bld) 4.8 % Normal 1.7-12.0 [facility] Comment on above: Performed By: #### C BC #### [facility] [address] [place] [address] Dr. Yassine Zarate NEUT # 5.9 103/ul Normal 1.4-6.5 [facility] Comment on above: Performed By: #### C BC #### [facility] [address] [address] [address] Yassine Zarate Neutrophils/100 WBC (Bld) 69.2 % Normal 43.0-75.0 [facility] Comment on above: Performed By: #### C BC #### [facility] [address] [place] [address] Dr. Yassine Zarate Platelet mean volume (Bld) [Entitic vol] 9.0 fL Critically low 9.5-13.5 [facility] Comment on above: Performed By: #### C BC #### [facility] [address] [address] [address] Yassine Zarate PLT 283 103/ul Normal 150-450 [facility] Comment on above: Performed By: #### C BC #### [facility] [address] [place] [address] Dr. Yassine Zarate RBC 4.50 106/ul Normal 4.20-5.40 [facility] Comment on above: Performed By: #### C BC #### [facility] [address] [place] [address] Dr. Yassine Zarate WBC 8.5 103/ul Normal 4.0-11.0 [facility] Comment on above: Performed By: #### C BC #### [facility] [address] [place] [address] Dr. Yassine Zarate CULTURE URINEon 01-17-2022 CULTURE URINE Culture Observations : LIGHT GROWTH OF MIXED GENITAL JACQUELYN. NO POTENTIAL PATHOGENS SEEN. Normal [facility] Comment on above: Performed By: #### U RCX #### [facility] [address] [place] [address] Dr. Yassine Zarate GLYCOHEMOGLOBIN A1Con 2021 ADA RECOMMENDATION SEE BELOW Normal [facility] Comment on above: Result Comment: ADA RECOMMENDED LIMIT 4.0 - 6.0 ADA THERAPEUTIC TARGET < 7.0 ACTION SUGGESTED > 7.0 Performed By: #### C BC #### [facility] [address] [place] [address] Dr. Yassine Zarate Glucose [Mass/Vol] 108 mg/dL Normal [facility] Comment on above: Performed By: #### C BC #### [facility] [address] [place], [place] [address] Dr. Yassine Zarate HbA1c (Bld) [Mass fraction] 5.4 % Normal 4.5-6.2 [facility] Comment on above: Performed By: #### C BC #### [facility] [address] [address] [address] Yassine Zarate JENNIFER BOX TEST PT SEND OUTo n 01-17-2022 SENT TO REF LAB 01/17/2022 Normal [facility] Comment on above: Performed By: #### C BC #### [facility] [address] [address] [address] Yassine Zarate TYPE AND SCREENon 01-17-2022 TYPE AND SCREEN Negative Normal [facility] Comment on above: Performed By: #### T NS #### [facility] [address] [address] [address] Yassine Zarate US PREG TVon 12-29-2021 US PREG TV EXAMINATION: US PREG TV HISTORY: Missed period COMPARISON: No relevant comparison available. FINDINGS: GESTATIONAL SAC: Present and normal appearing. POLE: Present and normal appearing. YOLK SAC: Present. CARDIAC: Present. UTERUS: Normal size and appearance. OVARIES: Right: Corpus lutein cyst versus complex cyst versus mass, 2.2 cm. Left: Not seen. CERVIX: 3.6 cm in length and closed. CUL-DE-SAC: Normal. OTHER: None. AGE BY LMP: 8 weeks 6 days THA BY LMP: 08/04/2022 AGE BY US CRL: 8 weeks 3 days THA BY US CRL: 08/07/2022 IMPRESSION: 1. Single live intrauterine . 2. Nonspecific right ovarian complex cyst versus mass; follow-up recommended. Electronically authenticated by: VILMA COBURN Date: 2021-12-29 16:26 Normal [facility] US PELVIS AND TRANSVAGon US PELVIS AND TRANSVAG EXAMINATION: US PELVIS AND TRANSVAG HISTORY: Vaginospasm COMPARISON: No relevant comparison available. FINDINGS: Transabdominal and transvaginal images The uterus is normal in appearance measuring 2.0 x 3.0 x 3.5 cm. Anteverted. No focal myometrial mass The endometrium measures 7.6 mm, normal. The right ovary measures 2.9 x 2.8 x 2.8 cm. Normal color Doppler flow. Area of anechoic echogenicity measuring 2.0 x 1.4 x 2.0 cm, simple cyst. Left ovary is normal in size, contour and echotexture measuring 2.2 x 1.4 x 2.4 cm. Normal color and Doppler flow. No free fluid IMPRESSION: 2 cm right ovarian simple cyst Electronically authenticated by: BEBO JORGE Date: 2021-11-13 12:05 Normal [facility] HEPATITIS C AB W/REFL TO HCV RNA, QN, PCRon 11-11-2021 HEPATITIS C ANTIBODY Non-Reactive Normal NON-REACTIVE [facility] Comment on above: Performed By: #### 8 162 #### [facility] [address], [address] [place], [place] [id number] [employer]: Holden Mathur MD INDEX 0.04 Normal <1.00 [facility] Comment on above: Result Comment: HCV antibody was non-reactive. There is no laboratory evidence of HCV infection. In most cases, no further action is required. However, if recent HCV exposure is suspected, a test for HCV RNA (test code 50473) is suggested. For additional information please refer to http://education.iogyn/faq/MEN87b0 (This link is being provided for informational/ educational purposes only.) Performed By: #### 8 082 #### [facility] [address], [address] [place], [place] [id number] [employer]: Holden Mathur MD LIPID PROFILEon 11-09-2021 CHOL-HDL RATIO NORM SEE BELOW Normal [facility] Comment on above: Result Comment: 3.3 - 4.4 LOW RISK 4.4 - 7.1 AVERAGE RISK 7.1 - 11.0 MODERATE RISK >11.0 HIGH RISK Performed By: #### C BC #### [facility] [address] [place], [place] [address] Dr. Yassine Zarate Cholesterol [Mass/Vol] 176 mg/dL Normal <=200 [facility] Comment on above: Performed By: #### C BC #### [facility] [address] [place], [place] [address] Dr. Yassine Zarate Cholesterol in HDL [Mass/Vol] 58 mg/dL Normal 40-60 [facility] Comment on above: Performed By: #### C BC #### [facility] [address] [place], [place] [address] Dr. Yassine Zarate Cholesterol in LDL [Mass/Vol] 98.4 mg/dL Normal [facility] Comment on above: Performed By: #### C BC #### [facility] [address] [address] [address] Yassine Zarate Cholesterol.total/Ch olesterol in HDL [Mass ratio] 3.0 {ratio} Normal [facility] Comment on above: Performed By: #### C BC #### [facility] [address] [address] [address] Yassine Zarate HDL NORMAL > or = 60 mg/dl - LO W CARDIOVASCULAR RISK <40 mg/dl - HIGH CARDIOVASCULAR RISK Normal [facility] Comment on above: Performed By: #### C BC #### [facility] [address] [address] [address] Yassine Zarate LDL CALC NORMAL SEE BELOW Normal [facility] Comment on above: Result Comment: <100 mg/dl OPTIMAL 100 - 129 mg/dl NEAR OR ABOVE OPTIMAL 130 - 159 mg/dl BORDERLINE HIGH 160 - 189 mg/dl HIGH >190 mg/dl VERY HIGH Performed By: #### C BC #### [facility] [address] [address] [address] Yassine Zarate Triglyceride [Mass/Vol] 98 mg/dL Normal <=150 [facility] Comment on above: Performed By: #### C BC #### [facility] [address] [address] [address] Yassine Zarate VLDL CALC 19.6 mg/dL Normal [facility] Comment on above: Performed By: #### C BC #### [facility] [address] [address] [address] Yassine Zarate PROF 14(COMP METB)on 022 Albumin [Mass/Vol] 3.8 g/dL Normal 3.4-5.0 [facility] Comment on above: Performed By: #### C BC #### [facility] [address] [place] [address] Dr. Yassine Zarate Albumin/Globulin [Mass ratio] 1.1 {ratio} Normal [facility] Comment on above: Performed By: #### C BC #### [facility] [address] [address] [address] Yassine Zarate ALP [Catalytic activity/Vol] 79 U/L Normal 46-116 [facility] Comment on above: Performed By: #### C BC #### [facility] [address] [place] [address] Dr. Yassine Zarate ALT [Catalytic activity/Vol] 16 U/L Normal 14-59 [facility] Comment on above: Performed By: #### C BC #### [facility] [address] [place] [address] Dr. Yassine Zarate Anion gap [Moles/Vol] 14.4 mmol/L Normal [facility] Comment on above: Performed By: #### C BC #### [facility] [address] [place] [address] Dr. Yassine Zarate AST [Catalytic activity/Vol] 13 U/L Critically low 15-37 [facility] Comment on above: Performed By: #### C BC #### [facility] [address] [place] [address] Dr. Yassine Zarate Bilirubin [Mass/Vol] 0.5 mg/dL Normal 0.2-1.0 [facility] Comment on above: Performed By: #### C BC #### [facility] [address] [place] [address] Dr. Yassine Zarate Calcium [Mass/Vol] 8.8 mg/dL Normal 8.5-10.1 [facility] Comment on above: Performed By: #### C BC #### [facility] [address] [place] [address] Dr. Yassine Zarate Chloride [Moles/Vol] 103 mmol/L Normal 98-107 [facility] Comment on above: Performed By: #### C BC #### [facility] [address] [address] [address] Yassine Zarate CO2 [Moles/Vol] 25.7 mmol/L Normal 21.0-32.0 The [facility] Comment on above: Performed By: #### C BC #### [facility] [address] [address] [address] Yassine Zarate Creatinine [Mass/Vol] 0.69 mg/dL Normal 0.55-1.02 [facility] Comment on above: Performed By: #### C BC #### [facility] [address] [address] [address] Yassine Zarate EGFR-AF WALLISIAN >60 Normal >=60 The [facility] Comment on above: Performed By: #### C BC #### [facility] [address] [place] [address] Dr. Yassine Zarate EGFR-NON AF WALLISIAN >60 Normal >=60 [facility] Comment on above: Performed By: #### C BC #### [facility] [address] [place] [address] Dr. Yassine Zarate Globulin (S) [Mass/Vol] 3.5 g/dL Normal [facility] Comment on above: Performed By: #### C BC #### [facility] [address] [place] [address] Dr. Yassine Zarate Glucose [Mass/Vol] 85 mg/dL Normal 74-106 [facility] Comment on above: Performed By: #### C BC #### [facility] [address] [address] [address] Yassine Zarate Potassium [Moles/Vol] 4.1 mmol/L Normal 3.5-5.1 [facility] Comment on above: Performed By: #### C BC #### [facility] [address] [place] [address] Dr. Yassine Zaarte Protein [Mass/Vol] 7.3 g/dL Normal 6.4-8.2 [facility] Comment on above: Performed By: #### C BC #### [facility] [address] [place] [address] Dr. Yassine Zarate Sodium [Moles/Vol] 139 mmol/L Normal 136-145 [facility] Comment on above: Performed By: #### C BC #### [facility] [address] [address] [address] Yassine Zarate Urea nitrogen [Mass/Vol] 13.0 mg/dL Normal 7.0-18.0 [facility] Comment on above: Performed By: #### C BC #### [facility] [address] [address] [address] Yassine Zarate Urea nitrogen/Creatinine [Mass ratio] 18.8 mg/mg Normal [facility] Comment on above: Performed By: #### C BC #### [facility] [address] [address] [address] Yassine Zarate BASIC METABOLIC PANELon 05-04 BUN/CREATININE RATIO NOT APPLICABLE Normal 6-22 [facility] Comment on above: Order Comment: FASTI NG:NO FASTING: NO Performed By: #### 1 7306, 4299, 98742, 86898 #### [facility] [address], [address] [place] [address] [employer]: Holden Mathur MD Calcium [Mass/Vol] 9.6 mg/dL Normal 8.6-10.2 [facility] Comment on above: Order Comment: FASTI NG:NO FASTING: NO Performed By: #### 1 7306, 6399, 78648, 67655 #### [facility] [address], [address] [place] [address] [employer]: Holdne aMthur MD Chloride [Moles/Vol] 105 mmol/L Normal 98-110 [facility] Comment on above: Order Comment: FASTI NG:NO FASTING: NO Performed By: #### 1 7306, 6399, 30220, 60785 #### [facility] [address], [address] [place] [address] [employer]: Holden Mathur MD CO2 [Moles/Vol] 24 mmol/L Normal 20-32 [facility] Comment on above: Order Comment: FASTI NG:NO FASTING: NO Performed By: #### 1 7306, 6399, 33285, 36172 #### [facility] [address], [address] [place] [address] [employer]: Holden Mathur MD Creatinine [Mass/Vol] 0.74 mg/dL Normal 0.50-1.10 [facility] Comment on above: Order Comment: FASTI NG:NO FASTING: NO Performed By: #### 1 7306, 6399, 45248, 75290 #### [facility] [address], [address] [place] [address] [employer]: Holden Mathur MD eGFR NON-AFR. WALLISIAN 110 mL/min/1.73m2 Normal > OR = 60 [facility] Comment on above: Order Comment: FASTI NG:NO FASTING: NO Performed By: #### 1 7306, 6399, 57893, 94278 #### [facility] [place] [address] [employer]: Holden Mathur MD GFR/1.73 sq M.predicted among blacks MDRD (S/P/Bld) [Vol rate/Area] 128 mL/min/{1.73_m2} Normal > OR = 60 [facility] Comment on above: Order Comment: FASTI NG:NO FASTING: NO Performed By: #### 1 7306, 6399, 70407, 64127 #### [facility] [place] [address] [employer]: Holden Mathur MD Glucose [Mass/Vol] 83 mg/dL Normal 65-139 [facility] Comment on above: Order Comment: FASTI NG:NO FASTING: NO Result Comment: Non-fasting reference interval Performed By: #### 1 7306, 6399, 14428, 77023 #### [facility] [place] [address] [employer]: Holden Mathur MD Potassium [Moles/Vol] 4.5 mmol/L Normal 3.5-5.3 [facility] Comment on above: Order Comment: FASTI NG:NO FASTING: NO Performed By: #### 1 7306, 6399, 62042, 28750 #### [facility] of [address], [address] [place] [address] [employer]: Holden Mathur MD Sodium [Moles/Vol] 138 mmol/L Normal 135-146 [facility] Comment on above: Order Comment: FASTI NG:NO FASTING: NO Performed By: #### 1 7306, 6399, , 41616 #### [facility] of [address], [address] [place] [address] [employer]: Holden Mathur MD Urea nitrogen [Mass/Vol] 16 mg/dL Normal 7-25 [facility] Comment on above: Order Comment: FASTI NG:NO FASTING: NO Performed By: #### 1 7306, 6399, , 15725 #### [facility] of [address], [address] [place] [address] [employer]: Holden Mathur MD CBC (INCLUDES DIFF/PLT)on Basophils (Bld) [#/Vol] 0.05 10*3/uL Normal 0-200 [facility] Comment on above: Performed By: #### 1 7306, 63, , 62741 #### [facility] of [place] [address] [employer]: Holden Mathur MD Basophils/100 WBC (Bld) 0.8 % Normal [facility] Comment on above: Performed By: #### 1 7306, 63, , 89909 #### [facility] of [place] [address] [employer]: Holden Mathur MD Eosinophils (Bld) [#/Vol] 0.112 10*3/uL Normal 15-500 [facility] Comment on above: Performed By: #### 1 7306, 6399, 91857, 24486 #### [facility] of [address], [address] [place] [address] [employer]: Holden Mathur MD Eosinophils/100 WBC (Bld) 1.8 % Normal [facility] Comment on above: Performed By: #### 1 7306, 6399, 66445, 71476 #### [facility] of [place] [address] [employer]: Holden Mathur MD Erythrocyte distribution width (RBC) [Ratio] 12.3 % Normal 11.0-15.0 [facility] Comment on above: Performed By: #### 1 7306, 6399, , 82965 #### [facility] of [place] [address] [employer]: Holden Mathur MD Hematocrit (Bld) [Volume fraction] 39.4 % Normal 35.0-45.0 [facility] Comment on above: Performed By: #### 1 7306, 6399, , 43849 #### [facility] of [place] [address] [employer]: Holden Mathur MD Hemoglobin (Bld) [Mass/Vol] 13.2 g/dL Normal 11.7-15.5 [facility] Comment on above: Performed By: #### 1 7306, 63, , 72258 #### [facility] of [place] [address] [employer]: Holden Mathur MD Lymphocytes (Bld) [#/Vol] 1.835 10*3/uL Normal 850-3900 [facility] Comment on above: Performed By: #### 1 7306, 63, , 36222 #### [facility] of [place] [address] [employer]: Holden Mathur MD Lymphocytes/100 WBC (Bld) 29.6 % Normal [facility] Comment on above: Performed By: #### 1 7306, 6399, 31743, 53356 #### [facility] of [place] [address] [employer]: Holden aMthur MD MCH (RBC) [Entitic mass] 27.6 pg Normal 27.0-33.0 [facility] Comment on above: Performed By: #### 1 7306, 6399, , 01120 #### [facility] of [place] [address] [employer]: Holden Mathur MD MCHC (RBC) [Mass/Vol] 33.5 g/dL Normal 32.0-36.0 [facility] Comment on above: Performed By: #### 1 7306, 6399, , 45096 #### [facility] of [place] [address] [employer]: Holden Mathur MD MCV (RBC) [Entitic vol] 82.4 fL Normal 80.0-100.0 [facility] Comment on above: Performed By: #### 1 7306, 6399, , 27110 #### [facility] of [place] [address] [employer]: Holden Mathur MD Monocytes (Bld) [#/Vol] 0.459 10*3/uL Normal 200-950 [facility] Comment on above: Performed By: #### 1 7306, 63, , 30842 #### [facility] of [place] [address] [employer]: Holden Mathur MD Monocytes/100 WBC (Bld) 7.4 % Normal [facility] Comment on above: Performed By: #### 1 7306, 63, , 81529 #### [facility] of [place] [address] [employer]: Holden aMthur MD Neutrophils (Bld) [#/Vol] 3.745 10*3/uL Normal 2762-2478 [facility] Comment on above: Performed By: #### 1 7306, 6399, , 68092 #### [facility] of [place] [address] [employer]: Holden Mathur MD Neutrophils/100 WBC (Bld) 60.4 % Normal [facility] Comment on above: Performed By: #### 1 7306, 6399, 60620, 31298 #### [facility] of [address], [address] [place] [address] [employer]: Hloden Mathur MD Platelet mean volume (Bld) [Entitic vol] 10.0 fL Normal 7.5-12.5 [facility] Comment on above: Performed By: #### 1 7306, 6399, 43835, 73547 #### [facility] of [address], [address] [place] [address] [employer]: Holden Mathur MD Platelets (Bld) [#/Vol] 303 10*3/uL Normal 140-400 [facility] Comment on above: Performed By: #### 1 7306, 6399, 49242, 50622 #### [facility] of [address], [address] [place] [address] [employer]: Holden Mathur MD RBC (Bld) [#/Vol] 4.78 10*6/uL Normal 3.80-5.10 [facility] Comment on above: Performed By: #### 1 7306, 6399, 60444, 68506 #### [facility] of [address], [address] [place] [address] [employer]: Holden Mathur MD WBC (Bld) [#/Vol] 6.2 10*3/uL Normal 3.8-10.8 [facility] Comment on above: Performed By: #### 1 7306, 6399, 36470, 10796 #### [facility] of [address], [address] [place] [address] [employer]: Holden Mathur MD TEST AUTHORIZATIONon CLIENT CONTACT: DARRIN Sykes Normal [facility] Comment on above: Performed By: #### 1 7306, 6399, 12094, 57578 #### [facility] of [address], [address] [place] [address] [employer]: Holden Mathur MD COMMENT Normal [facility] Comment on above: Result Comment: Plea se have the ordering physician or his or her authorized compliance representative dealer sign a copy of this report and promptly return it by faxing it to: [phone] or by returning the form to your radio machinist. Performed By: #### 1 7306, 6399, 39098, 21336 #### [facility] [address], [address] [place] [address] [employer]: Holden Mathur MD REPORT ALWAYS MESSAGE SIGNATURE Normal [facility] Comment on above: Result Comment: The laboratory testing on this patient was verbally requested or confirmed by the ordering physician or his or her authorized compliance representative dealer after contact with an employee of [employer]. Federal regulations require that we maintain on file written authorization for all laboratory testing. Accordingly we are asking that the ordering physician or his or her authorized compliance representative dealer sign a copy of this report and promptly return it to the client associate. Signature: Performed By: #### 1 7306, 6399, 38388, 45434 #### [facility] [place] [address] [employer]: Holden Mathur MD TEST CODE: [id number] Normal [facility] Comment on above: Performed By: #### 1 7306, 6399, 61616, 45989 #### [facility] [place] [address] [employer]ch: Holden Mathur MD TEST NAME: TSH W/REFLEX TO FT4 Normal [facility] Comment on above: Performed By: #### 1 7306, 6399, 14467, 90808 #### [facility] [place] [address] [employer]: Holden Mathur MD TSH W/REFLEX TO FT4on 2021 TSH W/REFLEX TO FT4 1.13 mIU/L Normal [facility] Comment on above: Result Comment: Refe rence Range > or = 20 Years 0.40-4.50 Ranges First trimester 0.26-2.66 Second trimester 0.55-2.73 Third trimester 0.43-2.91 Performed By: #### 1 7306, 6399, 81397, 47146 #### [place] [address] [employer]: Holden Mathur MD VITAMIN D,25-OH,TOTAL,IAon 0 - VITAMIN D,25-OH,TOTAL,IA 56 ng/mL Normal 30-100 [facility] Comment on above: Result Comment: Daniela min D Status 25-OH Vitamin D: Deficiency: <20 ng/mL Insufficiency: 20 - 29 ng/mL Optimal: > or = 30 ng/mL For 25-OH Vitamin D testing on patients on D2-supplementation and patients for whom quantitation of D2 and D3 fractions is required, the [facility](TM) 25-OH VIT D, (D2,D3), LC/MS/MS is recommended: order code [id number] (patients >2yrs). See Note 1 Note 1 For additional information, please refer to http://education.Rambus.[employer]/faq/WAC563 (This link is being provided for informational/ educational purposes only.) Performed By: #### 1 7306, 6399, 92469, 42715 #### [facility] [address] [employer]: Holden Mathur MD COVID-19 Lab Corpon 07-08-19 21 SARS-CoV-2 (COVID-19) RNA SARAH+probe Ql (Unsp spec) Not detected Normal Not Detected [facility] Comment on above: Order Comment: Healt hcare Worker?: N Result Comment: This nucleic acid amplification test was developed and its performance characteristics determined by [employer]. Nucleic acid amplification tests include RT- PCR and TMA. This test has not been FDA cleared or approved. This test has been authorized by FDA under an Emergency Use Authorization (EUA). This test is only authorized for the duration of time the declaration that circumstances exist justifying the authorization of the emergency use of in vitro diagnostic tests for detection of SARS-CoV-2 virus and/or diagnosis of COVID-19 infection under section 564(b)(1) of the Act, 21 U.S.C. 360bbb-3(b) (1), unless the authorization is terminated or revoked sooner. When diagnostic testing is negative, the possibility of a false negative result should be considered in the context of a patient's recent exposures and the presence of clinical signs and symptoms consistent with COVID-19. An individual without symptoms of COVID-19 and who is not shedding SARS-CoV-2 virus would expect to have a negative (not detected) result in this assay. PERFORMED BY: [facility] [address] [place] [address] PATHOLOGIST MORTAR MAN JADE TOMLINSON M.D. Performed By: #### C ORONAVIRUS #### [facility] , Vital Signs Date Time Vital Sign Value Performing Clinician Dieudonne keen 03-23-2022 16:07-0500 Body weight 81.1944 kg DARRIN PERALES . [facility] Comment on above: Performed By: #### A FPMAT #### [facility] [address] [address] [address] Yassine Zarate Encounters Encounter Date Encounter Type Care Provider Facility Start: 04-23-2023 End: 04-24-[address] [place] [address] Start: 04-09-2023 End: 04-09-2023 ambulatory SANTOSH BARLOW Not Available Start: 03-09-2023 End: 03-09-2023 ambulatory SANTOSH BARLOW Not Available Start: 08-07-2022 End: 08-07-[address] SAULO YEUNG Facility:[facility] Start: 08-02-2022 End: 08-05-2022 Evaluation and management of inpatient DR SANTOSH BARLOW . Facility:[facility] Start: 07-06-2022 End: 07-06-2022 ambulatory DR SANTOSH BARLOW . Facility:[facility] Start: 06-15-2022 End: 06-16-[address] VILMA COBURN Facility:[facility] Start: 06-02-2022 End: 06-02-[address] GILL THOMPSON . Facility:[facility] Start: 04-20-2022 End: 04-20-[address] SANTOSH BARLOW . Facility:[facility] Start: 04-20-2022 End: 04-21-2022 ambulatory DARRIN PERALES . Facility:[facility] Start: 03-21-2022 End: 03-22-[address] SANTOSH BARLOW . Facility:[facility] Start: 01-17-2022 End: 01-18-[address] SANTOSH BARLOW . Facility:[facility] Start: 12-29-2021 End: 12-30-[address] SANTOSH BARLOW . Facility:[facility] Start: 11-12-2021 End: 11-13-[address] BEBO JORGE Facility:[facility] Start: 11-09-2021 End: 11-10-2021 ambulatory MONTRELL TIMMONS Facility:[facility] Procedures Date Procedure Procedure Detail Performing Clinician Start: 08-03-2022 Delivery of Products of Conception, External Approach DARRIN PERALES . Start: 08-03-2022 Division of Female P erineum, External Approach DARRIN PERALES . Start: 08-03-2022 Drainage of Amniotic Fluid, Therapeutic from Products of Conception, Via Natural or Artificial Opening DARRIN PERALES . Start: 08-03-2022 Introduction of Othe r Hormone into Peripheral Vein, Percutaneous Approach DARRIN PERALES . Payers Date Payer Category Payer Unknown [id number] 2.16.84 [id number] 1992 Unknown [id number] 2.16.84 0.1.401842.3.579.2.593 1992 Unknown [id number] 2.16.84 0.1.530715.3.579.2.593 1992 Unknown [id number] 2.16.84 0.1.927142.3.579.2.593 1992 Unknown [id number] 2.16.84 0.1.400577.3.579.2.593 1992 Unknown [id number] 2.16.84 0.1.466956.3.579.2.593 1992 Unknown [id number] 2.16.84 0.1.632816.3.579.2.593 1992 Unknown [id number] 2.16.84 0.1.653329.3.579.2.593 1992 Unknown [id number] 2.16.84 0.1.356400.3.579.2.593 1992 Unknown [id number] 2.16.84 0.1.938665.3.579.2.593 1992 Unknown [id number] 2.16.84 0.1.677804.3.579.2.593 1992 Unknown [id number] 2.16.84 0.1.756352.3.579.2.593 1992 Unknown [id number] 2.16.84 0.1.389071.3.579.2.593 1992 Unknown [id number] 2.16.840 .1.357422.3.579.2.1259 1992 Unknown [id number] 2.16.840 .1.795290.3.579.2.1259 1992 Unknown [id number] 2.16.84 0.1.836545.3.579.2.1286 1959 Self-pay 1959 Unknown [id number] 1959 Unknown [id number] Unknown [id number] 2.16.84 0.1.456368.3.579.2.593 Summary Purpose Family History No Family History Records FoundNo Family History Records FoundNo Family History Records FoundNo Family History Records FoundNo Family History Records Found Advance Directives No Advanced Directives Records FoundNo Advanced Directives Records FoundNo Advanced Directives Records FoundNo Advanced Directives Records FoundNo Advanced Directives Records Found Additional Source Comments INFORMATION SOURCE (unrecogn ized section and content) DATE CREATED AUTHOR 05/23/2021 [facility] DATE CREATED AUTHOR AUTHOR'S ORGANIZ ATION 11/12/2021 [facility] DATE CREATED AUTHOR AUTHOR'S ORGANIZ ATION 08/12/2022 [facility] DATE CREATED AUTHOR AUTHOR'S ORGANIZ ATION 04/09/2023 [facility] EPIC DATE CREATED AUTHOR AUTHOR'S BUNNY ATION 04/26/2023 [facility] FOR RECORDS PERTAINING TO PATIENTS WHO ARE OR HAVE BEEN ENROLLED IN A CHEMICAL DEPENDENCY/SUBSTANCEABUSE PROGRAM, SOME INFORMATION MAY BE OMITTED. This clinical summary was aggregated from multiple sources. Caution should be exercised in using it in the provision of clinical care. This summary normalizes information from multiple sources, and as a consequence, information in this document may materially change the coding, format and clinical context of patient data. In addition, data may be omitted in some cases. CLINICAL DECISIONS SHOULD BE BASED ON THE PRIMARY CLINICAL RECORDS. [facility] [email or web address] [facility]. provides no warranty or guarantee of the accuracy or completeness of information in this document.
[2023-06-29 11:44] LABS: Results Report
[2023-06-29 11:45] LABS: Gest. Age on Collection Date 18.4 weeks; Insulin Dep Diabetes No
[2023-06-29 11:46] LABS: OSBR Risk 1 IN 10000
== END 2023-05-07 11:49 | disposition home or self-care (01) ==
LOC: LAB 11:50
PROVIDERS: PCP Family Medicine; Visit Provider Obstetrics & Gynecology
DX: Z34.92 Encounter for supervision of normal pregnancy, unspecified, second trimester (principal)
CPT/HCPCS: 36415; 82105

== ENCOUNTER 2023-05-07 20:39 | Outpatient (REF) | payer BC, MEDICAID, SELFPAY ==
--- OUTSIDE RECORDS SUMMARY | 2023-05-07 20:42 | XMS_ITS | CCD ---
Author Name Unknown Address [address] [place] [address] Organization [facility] Care Team Providers Care Animal Attendants And Trainers Name Role Phone DIAZ .DARRIN Consulting Unavailable FURLONG, DR SAULO Krishna Primary [facility] Unavailable DIAZ ., DARRIN Attending Unavailable DIAZ ., DARRIN Admitting Unavailable CAIN ., DR FROST Consulting Unavailable FURLONG, DR SAULO Krishna [facility] Unavailable CAIN ., DR FROST Attending Unavailable CAIN ., DR FROST Admitting Unavailable ZIEBER, DR VILMA Webb Consulting Unavailable WESTBOROUGH, DR BEBO Chowdhury Consulting Unavailable FURLONG, DR SAULO Krishna [facility] Unavailable CAIN ., DR FROST Attending Unavailable CAIN ., DR FROST Admitting Unavailable CAIN ., DR FROST Consulting Unavailable IAIN, MONTRELL Consulting Unavailable FURLONG, DR SAULO Krishna [facility] Unavailable IAIN, MONTRELL Attending Unavailable IAIN, MONTRELL Admitting Unavailable CAIN ., DR FROST Consulting Unavailable FURLONG, DR SAUOL Krishna Primary Care Unavailable CAIN ., DR [...] 08-11-2022 Episodic Other aftercare (1 source) Other long term care pharmacist (current) drug therapy; Translations: [[employer]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 OTH ABN PELV ORGAN 1ST TRI] [...] 24 VARICELLA IgG 0.7 AI Normal <0.9 [facility] Comment on above: Result Comment: Interpretation-------- <0.9 Negative 0.9 - 1.0 Equivocal >1.0 Positive Performed By: #### 1 5410-4 #### [facility] ([id number]) [address], [address] [place] [address] CBC AUTO DIFFon 08-04-2022 BASO # 0.0 103/ul Normal 0.0-0.1 [facility] Comment on above: Performed By: #### C BC #### [facility] [address] [address] [address] Yassine Zarate Basophils/100 WBC (Bld) 0.3 % Normal 0.2-2.0 [facility] Comment on above: Performed By: #### C BC #### [facility] [address] [address] [address] Yassine Zarate EO # 0.1 103/ul Normal 0.0-0.7 [facility] Comment on above: Performed By: #### C BC #### [facility] [address] [address] [address] Yassine Zarate Eosinophils/100 WBC (Bld) 0.8 % Critically low 0.9-7.0 [facility] Comment on above: Performed By: #### C BC #### [facility] [address] [place] [address] Dr. Yassine Zarate Erythrocyte distribution width (RBC) [Ratio] 14.1 % Normal 11.0-15.0 [facility] Comment on above: Performed By: #### C BC #### [facility] [address] [place] [address] Dr. Yassine Zarate Hematocrit (Bld) [Volume fraction] 31.8 % Critically low 36.0-48.0 [facility] Comment on above: Performed By: #### C BC #### [facility] [address] [place] [address] Dr. Yassine Zarate Hemoglobin (Bld) [Mass/Vol] 10.3 g/dL Critically low 12.0-16.0 [facility] Comment on above: Performed By: #### C BC #### [facility] [address] [place] [address] Dr. Yassine Zarate IG # 0.10 10e3/ul Critically high 0.00-0.03 [facility] Comment on above: Performed By: #### C BC #### [facility] [address] [place] [address] Dr. Yassine Zarate IG % 0.8 % Critically high 0.0-0.5 [facility] Comment on above: Performed By: #### C BC #### [facility] [address] [place] [address] Dr. Yassine Zarate LYMPH # 1.9 103/ul Normal 1.2-3.8 [facility] Comment on above: Performed By: #### C BC #### [facility] [address] [place] [address] Dr. Yassine Zarate Lymphocytes/100 WBC (Bld) 14.1 % Critically low 20.5-60.0 [facility] Comment on above: Performed By: #### C BC #### [facility] [address] [address] [address] Yassine Zarate MANUAL DIFF REQ NO Normal [facility] Comment on above: Performed By: #### C BC #### [facility] [address] [place] [address] Dr. Yassine Zarate MCH (RBC) [Entitic mass] 25.6 pg Critically low 26.7-34.0 [facility] Comment on above: Performed By: #### C BC #### [facility] [address] [place] [address] Dr. Yassine Zarate MCHC (RBC) [Mass/Vol] 32.4 g/dL Normal 29.9-35.2 [facility] Comment on above: Performed By: #### C BC #### [facility] [address] [place] [address] Dr. Yassine Zarate MCV (RBC) [Entitic vol] 79.1 fL Critically low 81.0-99.0 [facility] Comment on above: Performed By: #### C BC #### [facility] [address] [place] [address] Dr. Yassine Zarate MONO # 0.9 103/ul Critically high 0.3-0.8 [facility] Comment on above: Performed By: #### C BC #### [facility] [address] [place] [address] Dr. Yassine Zarate Monocytes/100 WBC (Bld) 6.6 % Normal 1.7-12.0 [facility] Comment on above: Performed By: #### C BC #### [facility] [address] [place] [address] Dr. Yassine Zarate NEUT # 10.3 103/ul Critically high 1.4-6.5 [facility] Comment on above: Performed By: #### C BC #### [facility] [address] [place] [address] Dr. Yassine Zarate Neutrophils/100 WBC (Bld) 77.4 % Critically high 43.0-75.0 [facility] Comment on above: Performed By: #### C BC #### [facility] [address] [address] [address] Yassine Zarate Platelet mean volume (Bld) [Entitic vol] 9.6 fL Normal 9.5-13.5 [facility] Comment on above: Performed By: #### C BC #### [facility] [address] [place] [address] Dr. Yassine Zarate PLT 251 103/ul Normal 150-450 [facility] Comment on above: Performed By: #### C BC #### [facility] [address] [address] [address] Yassine Zarate RBC 4.02 106/ul Critically low 4.20-5.40 [facility] Comment on above: Performed By: #### C BC #### [facility] [address] [place] [address] Dr. Yassine Zarate WBC 13.3 103/ul Critically high 4.0-11.0 [facility] Comment on above: Performed By: #### C BC #### [facility] [address] [place] [address] Dr. Yassine Zarate CBC AUTO DIFFon 08-02-2022 BASO # 0.1 103/ul Normal 0.0-0.1 [facility] Comment on above: Performed By: #### C BC #### [facility] [address] [place] [address] Dr. Yassine Zarate Basophils/100 WBC (Bld) 0.5 % Normal 0.2-2.0 [facility] Comment on above: Performed By: #### C BC #### [facility] [address] [place] [address] Dr. Yassine Zarate EO # 0.1 103/ul Normal 0.0-0.7 [facility] Comment on above: Performed By: #### C BC #### [facility] [address] [place] [address] Dr. Yassine Zarate Eosinophils/100 WBC (Bld) 1.1 % Normal 0.9-7.0 [facility] Comment on above: Performed By: #### C BC #### [facility] [address] [address] [address] Yassine Zarate Erythrocyte distribution width (RBC) [Ratio] 13.9 % Normal 11.0-15.0 [facility] Comment on above: Performed By: #### C BC #### [facility] [address] [place] [address] Dr. Yassine Zarate Hematocrit (Bld) [Volume fraction] 34.8 % Critically low 36.0-48.0 [facility] Comment on above: Performed By: #### C BC #### [facility] [address] [place] [address] Dr. Yassine Zarate Hemoglobin (Bld) [Mass/Vol] 11.5 g/dL Critically low 12.0-16.0 [facility] Comment on above: Performed By: #### C BC #### [facility] [address] [place] [address] Dr. Yassine Zarate IG # 0.15 10e3/ul Critically high 0.00-0.03 [facility] Comment on above: Performed By: #### C BC #### [facility] [address] [place] [address] Dr. Yassine Zarate IG % 1.3 % Critically high 0.0-0.5 [facility] Comment on above: Performed By: #### C BC #### [facility] [address] [place] [address] Dr. Yassine Zarate LYMPH # 2.5 103/ul Normal 1.2-3.8 [facility] Comment on above: Performed By: #### C BC #### [facility] [address] [place] [address] Dr. Yassine Zarate Lymphocytes/100 WBC (Bld) 20.6 % Normal 20.5-60.0 [facility] Comment on above: Performed By: #### C BC #### [facility] [address] [place] [address] Dr. Yassine Zarate MANUAL DIFF REQ NO Normal [facility] Comment on above: Performed By: #### C BC #### [facility] [address] [address] [address] Yassine Zarate MCH (RBC) [Entitic mass] 25.6 pg Critically low 26.7-34.0 [facility] Comment on above: Performed By: #### C BC #### [facility] [address] [place] [address] Dr. Yassine Zarate MCHC (RBC) [Mass/Vol] 33.0 g/dL Normal 29.9-35.2 [facility] Comment on above: Performed By: #### C BC #### [facility] [address] [place] [address] Dr. Yassine Zarate MCV (RBC) [Entitic vol] 77.5 fL Critically low 81.0-99.0 [facility] Comment on above: Performed By: #### C BC #### [facility] [address] [place] [address] Dr. Yassine Zarate MONO # 0.7 103/ul Normal 0.3-0.8 [facility] Comment on above: Performed By: #### C BC #### [facility] [address] [place] [address] Dr. Yassine Zarate Monocytes/100 WBC (Bld) 6.1 % Normal 1.7-12.0 [facility] Comment on above: Performed By: #### C BC #### [facility] [address] [place] [address] Dr. Yassine Zarate NEUT # 8.4 103/ul Critically high 1.4-6.5 [facility] Comment on above: Performed By: #### C BC #### [facility] [address] [place] [address] Dr. Yassine Zarate Neutrophils/100 WBC (Bld) 70.4 % Normal 43.0-75.0 [facility] Comment on above: Performed By: #### C BC #### [facility] [address] [place] [address] Dr. Yassine Zarate Platelet mean volume (Bld) [Entitic vol] 9.6 fL Normal 9.5-13.5 [facility] Comment on above: Performed By: #### C BC #### [facility] [address] [address] [address] Yassine Zarate PLT 294 103/ul Normal 150-450 [facility] Comment on above: Performed By: #### C BC #### [facility] [address] [address] [address] Yassine Zarate RBC 4.49 106/ul Normal 4.20-5.40 [facility] Comment on above: Performed By: #### C BC #### [facility] [address] [address] [address] Yassine Zarate WBC 11.9 103/ul Critically high 4.0-11.0 [facility] Comment on above: Performed By: #### C BC #### [facility] [address] [place] [address] Dr. Yassine Zarate DRUG SCREEN RAPID (URINE)on 08-02-2022 AMP Negative Normal NEGATIVE [facility] Comment on above: Performed By: #### D RUGRPD #### [facility] [address] [place] [address] Dr. Yassine Zarate BAR Negative Normal NEGATIVE [facility] Comment on above: Performed By: #### D RUGRPD #### [facility] [address] [place] [address] Dr. Yassine Zarate BUP Negative Normal NEGATIVE [facility] Comment on above: Performed By: #### D RUGRPD #### [facility] [address] [place] [address] Dr. Yassine Zarate BZO Negative Normal NEGATIVE [facility] Comment on above: Performed By: #### D RUGRPD #### [facility] [address] [place] [address] Dr. Yassine Zarate RACIEL Negative Normal NEGATIVE [facility] Comment on above: Performed By: #### D RUGRPD #### [facility] [address] [place] [address] Dr. Yassine Zarate CUT-OFFS SEE BELOW Normal [facility] Comment on above: Result Comment: AMP (Amphetamine): 500ng/mL, BAR (Barbituates): 200 ng/mL, BZO (Benzodiazepines): 150 ng/mL, BUP (Buprenorphine): 10 ng/mL, RACIEL (Cocaine): 150 ng/mL, mAMP (Methamphetamine): 500 ng/mL, MTD (Methadone): 200 ng/mL, OPI (Opiates): 100 ng/mL, OXY (Oxycodone): 100 ng/mL, PCP (Phencyclidine): 25 ng/mL, PPX (Propoxyphene): 300 ng/mL, THC (Cannabinoids): 50 ng/mL, TCA (Trycyclic Antidepressants): 300 ng/mL Performed By: #### D RUGRPD #### [facility] [address] [place] [address] Dr. Yassine Zarate DRUG CUT HEADER DRUG CLASS TEST SYSTEM CUT-OFF CONCENTRATIONS ARE FOLLOWS: Normal [facility] Comment on above: Performed By: #### D RUGRPD #### [facility] [address] [place] [address] Dr. Yassine Zarate mAMP Negative Normal NEGATIVE [facility] Comment on above: Performed By: #### D RUGRPD #### [facility] [address] [place] [address] Dr. Yassine Zarate MTD Negative Normal NEGATIVE [facility] Comment on above: Performed By: #### D RUGRPD #### [facility] [address] [place] [address] Dr. Yassine Zarate OPI Negative Normal NEGATIVE [facility] Comment on above: Performed By: #### D RUGRPD #### [facility] [address] [place] [address] Dr. Yassine Zarate OXY Negative Normal NEGATIVE [facility] Comment on above: Performed By: #### D RUGRPD #### [facility] [address] [place] [address] Dr. Yassine Zarate PCP Negative Normal NEGATIVE [facility] Comment on above: Performed By: #### D RUGRPD #### [facility] [address] [place] [address] Dr. Yassine Zarate PPX Negative Normal NEGATIVE [facility] Comment on above: Performed By: #### D RUGRPD #### [facility] [address] [address] [address] Yassine Zarate TCA Negative Normal NEGATIVE [facility] Comment on above: Performed By: #### D RUGRPD #### [facility] [address] [place] [address] Dr. Yassine Zarate THC Negative Normal NEGATIVE [facility] Comment on above: Performed By: #### D RUGRPD #### [facility] [address] [address] [address] Yassine Zarate TYPE AND SCREENon 08-02-2022 TYPE AND SCREEN Negative Normal [facility] Comment on above: Performed By: #### C BC #### [facility] [address] [place] [address] Dr. Yassine Zarate GROUP B STREP CULTUREon [...] F Tetracycline >=16 R F Normal [facility] Comment on above: Performed By: #### C BC #### [facility] [address] [place] [address] Dr. Yassine Zarate US PREG GROWTHon 06-15-2022 [...] authenticated by: VILMA IRISH Date: 2022-06-15 15:12 [facility] PAP ACOG PANEL 2: 23 to 31on 04-25-2022 . . Normal [facility] Comment on above: Performed By: #### C BC #### [facility] [address] [address] [address] Yassine Zarate Age Gdln ACOG Testing - [facility] Comment on above: Performed By: #### C BC #### [facility] [address] [place] [address] Dr. Yassine Zarate DIAGNOSIS: Comment [facility] Comment on above: Result Comment: NEGA TIVE FOR INTRAEPITHELIAL LESION OR MALIGNANCY. CELLULAR CHANGES ASSOCIATED WITH INFLAMMATION ARE PRESENT. Performed By: #### C BC #### [facility] [address] [address] [address] Yassine Zarate Methodology: Comment [facility] Comment on above: Result Comment: This liquid based ThinPrep(R) pap test was screened with the use of an image guided system. Performed By: #### C BC #### [facility] [address] [address] [address] Yassine Zarate Note: Comment [facility] Comment on above: Result Comment: The Pap smear is a screening test designed to aid in the detection of premalignant and malignant conditions of the uterine cervix. It is not a diagnostic procedure and should not be used as the sole means of detecting cervical cancer. Both false-positive and false-negative reports do occur. . Performed By: #### C BC #### [facility] [address] [place] [address] Dr. Yassine Zarate Performed by: Comment [facility] Comment on above: Result Comment: Marko Christensen, Billboard Mechanic (ASCP) Performed By: #### C BC #### [facility] [address] [place] [address] Dr. Yassine Zarate Reflex Criteria: Comment Normal [facility] Comment on above: Result Comment: The HPV DNA reflex criteria were not met with this specimen result therefore, no HPV testing was performed. . Performed By: #### C BC #### [facility] [address] [place] [address] Dr. Yassien Zarate Specimen adequacy: Comment Normal [facility] Comment on above: Result Comment: Sati sfactory for evaluation. No endocervical component is identified. Performed By: #### C BC #### [facility] [address] [place] [address] Dr. Yassine Zarate CHLAMYDIA/GONOCOCCUS SARAH (SW AB/URINE/PAPon 04-24-2022 Chlamydia trachomatis, SARAH Negative Normal Negative [facility] Comment on above: Performed By: #### C BC #### [facility] [address] [place] [address] Dr. Yassine Zarate Neisseria gonorrhoeae, SARAH Negative Normal Negative [facility] Comment on above: Performed By: #### C BC #### [facility] [address] [place] [address] Dr. Yassine Zarate VAGINITIS/VAGINOSIS DNA PROB Emmanuel 04-22-2022 Radha species Positive Abnormal Negative [facility] Comment on above: Performed By: #### V AGINT #### [facility] [address] [place] [address] Dr. Yassine Zarate Gardnerella vaginalis Negative Normal Negative [facility] Comment on above: Performed By: #### V AGINT #### [facility] [address] [place] [address] Dr. Yassine Zarate Trichomonas vaginalis Negative Normal Negative [facility] Comment on above: Performed By: #### V AGINT #### [facility] [address] [place] [address] Dr. Yassine Zarate CBC AUTO DIFFon 04-20-2022 BASO # 0.0 103/ul Normal 0.0-0.1 [facility] Comment on above: Performed By: #### C BC #### [facility] [address] [address] [address] Yassine Zarate Basophils/100 WBC (Bld) 0.4 % Normal 0.2-2.0 [facility] Comment on above: Performed By: #### C BC #### [facility] [address] [address] [address] Yassine Zarate EO # 0.1 103/ul Normal 0.0-0.7 [facility] Comment on above: Performed By: #### C BC #### [facility] [address] [address] [address] Yassine Zarate Eosinophils/100 WBC (Bld) 1.0 % Normal 0.9-7.0 [facility] Comment on above: Performed By: #### C BC #### [facility] [address] [address] [address] Yassine Zarate Erythrocyte distribution width (RBC) [Ratio] 12.3 % Normal 11.0-15.0 [facility] Comment on above: Performed By: #### C BC #### [facility] [address] [address] [address] Yassine Zarate Hematocrit (Bld) [Volume fraction] 34.8 % Critically low 36.0-48.0 [facility] Comment on above: Performed By: #### C BC #### [facility] [address] [address] [address] Yassine Zarate Hemoglobin (Bld) [Mass/Vol] 11.4 g/dL Critically low 12.0-16.0 [facility] Comment on above: Performed By: #### C BC #### [facility] [address] [address] [address] Yassine Zarate IG # 0.07 10e3/ul Critically high 0.00-0.03 [facility] Comment on above: Performed By: #### C BC #### [facility] [address] [address] [address] Yassine Zarate IG % 0.8 % Critically high 0.0-0.5 [facility] Comment on above: Performed By: #### C BC #### [facility] [address] [place] [address] Dr. Yassine Zarate LYMPH # 1.9 103/ul Normal 1.2-3.8 [facility] Comment on above: Performed By: #### C BC #### [facility] [address] [place] [address] Dr. Yassine Zarate Lymphocytes/100 WBC (Bld) 20.6 % Normal 20.5-60.0 [facility] Comment on above: Performed By: #### C BC #### [facility] [address] [place] [address] Dr. Yassine Zarate MANUAL DIFF REQ NO Normal [facility] Comment on above: Performed By: #### C BC #### [facility] [address] [place] [address] Dr. Yassine Zarate MCH (RBC) [Entitic mass] 26.3 pg Critically low 26.7-34.0 [facility] Comment on above: Performed By: #### C BC #### [facility] [address] [place] [address] Dr. Yassine Zarate MCHC (RBC) [Mass/Vol] 32.8 g/dL Normal 29.9-35.2 [facility] Comment on above: Performed By: #### C BC #### [facility] [address] [place] [address] Dr. Yassine Zarate MCV (RBC) [Entitic vol] 80.2 fL Critically low 81.0-99.0 [facility] Comment on above: Performed By: #### C BC #### [facility] [address] [place] [address] Dr. Yassine Zarate MONO # 0.5 103/ul Normal 0.3-0.8 [facility] Comment on above: Performed By: #### C BC #### [facility] [address] [place] [address] Dr. Yassine Zarate Monocytes/100 WBC (Bld) 5.2 % Normal 1.7-12.0 [facility] Comment on above: Performed By: #### C BC #### [facility] [address] [place] [address] Dr. Yassine Zarate NEUT # 6.5 103/ul Normal 1.4-6.5 [facility] Comment on above: Performed By: #### C BC #### [facility] [address] [address] [address] Yassine Zarate Neutrophils/100 WBC (Bld) 72.0 % Normal 43.0-75.0 [facility] Comment on above: Performed By: #### C BC #### [facility] [address] [address] [address] Yassine Zarate Platelet mean volume (Bld) [Entitic vol] 9.2 fL Critically low 9.5-13.5 [facility] Comment on above: Performed By: #### C BC #### [facility] [address] [place] [address] Dr. Yassine Zarate PLT 270 103/ul Normal 150-450 [facility] Comment on above: Performed By: #### C BC #### [facility] [address] [place] [address] Dr. Yassine Zarate RBC 4.34 106/ul Normal 4.20-5.40 [facility] Comment on above: Performed By: #### C BC #### [facility] [address] [place] [address] Dr. Yassine Zarate WBC 9.1 103/ul Normal 4.0-11.0 [facility] Comment on above: Performed By: #### C BC #### [facility] [address] [place] [address] Dr. Yassine Zarate GLUCOSE - 1HRon 04-20-2022 Glucose [Mass/Vol] 97 mg/dL Normal 74-106 [facility] Comment on above: Performed By: #### C BC #### [facility] [address] [place] [address] Dr. Yassine Zarate AFP MATERNAL FOR SPINA BIFID Aon 03-23-2022 AFP MoM 1.21 Normal [facility] Comment on above: Performed By: #### A FPMAT #### [facility] [address] [address] [address] Yassine Zarate AFP Value 69.6 ng/mL Normal [facility] Comment on above: Performed By: #### A FPMAT #### [facility] [address] [address] [address] Yassine Zarate AFP, Serum for Spina Bifida Report Normal [facility] Comment on above: Performed By: #### A FPMAT #### [facility] [address] [place] [address] Dr. Yassine Zarate Comment Comment Normal [facility] Comment on above: Result Comment: Shakila Dickinson, Ph.D., [facility] Director . References: Available Upon Request. . Multiples Of Median Cutoffs For AFP Elevations Guzman 2.5 Black 2.8 IDD 2.0 Twins 4.5 Abbreviation Definitions IDD - Insulin Dep Diabetes OSBR - Open Spina Bifida Risk . For further inquiries contact [employer] [facility] at [phone]. . This test was developed and its performance characteristics determined by [employer]. It has not been cleared or approved by the Food and Drug Administration. Performed By: #### A FPMAT #### [facility] [address] [place] [address] Dr. Yassine Larsen Age Collection Date 20.6 weeks [facility] Comment on above: Performed By: #### A FPMAT #### [facility] [address] [place] [address] Dr. Yassine Zarate Gestat, Age Based on THA Normal [facility] Comment on above: Result Comment: 07/2022 Recalculations are not recommended when gestational dating by LMP and ultrasound are within 10 days. Performed By: #### A FPMAT #### [facility] [address] [place] [address] Dr. Yassine Zarate Insulin Dep Diabetes No Normal [facility] Comment on above: Performed By: #### A FPMAT #### [facility] [address] [place] [address] Dr. Yassine Zarate Interpretation Comment Normal [facility] Comment on above: Result Comment: Inte rpretation: [...] Customer Services to discuss available options. The [employer] recommends amniocentesis be offered to women age 35 and older. Performed By: #### A FPMAT #### [facility] [address] [place] [address] Dr. Yassine Zarate [age] Normal [facility] Comment on above: Performed By: #### A FPMAT #### [facility] [address] [place] [address] Dr. Yassine Zarate Multiple Gestation No Normal [facility] Comment on above: Performed By: #### A FPMAT #### [facility] [address] [place] [address] Dr. Yassine Zarate OSBR Risk 1 IN 6301 Normal [facility] Comment on above: Performed By: #### A FPMAT #### [facility] [address] [place] [address] Dr. Yassine Zarate PDF . [facility] Comment on above: Performed By: #### A FPMAT #### [facility] [address] [place] [address] Dr. Yassine Zarate Race Normal [facility] Comment on above: Performed By: #### A FPMAT #### [facility] [address] [place] [address] Dr. Yassine Zarate Test Results: Negative Normal [facility] Comment on above: Performed By: #### A FPMAT #### [facility] [address] [place] [address] Dr. Yassine Zarate US PREG ANATOMY SINGLEon [...] VILMA COBURN Date: 2022-03-21 20:38 Normal [facility] HEP B SURFACE ANTIGEN SCREEN on 01-18-2022 HBsAg Screen Negative Normal Negative [facility] Comment on above: Performed By: #### H BSANS #### [facility] [address] [address] [address] Yassine Zarate HEPATITIS C VIRUS AB W/ REFL EX QUANTon 01-18-2022 HCV AB <0.1 Normal 0.0-0.9 [facility] Comment on above: Performed By: #### H CVPCRR #### [facility] [address] [address] [address] Yassine Zarate Interpretation: Comment Normal [facility] Comment on above: Result Comment: Nega tive Not infected with HCV, unless recent infection is suspected or other evidence exists to indicate HCV infection. Performed By: #### H CVPCRR #### [facility] [address] [address] [address] Yassine Zarate HIV 1 AND 2 WITH REFLEXon HIV Screen 4th Generation wRfx Non-Reactive Normal Non Reactive [facility] Comment on above: Result Comment: HIV Negative HIV-1/HIV-2 antibodies and HIV-1 p24 antigen were NOT detected. There is no laboratory evidence of HIV infection. Performed By: #### C BC #### [facility] [address] [place] [address] Dr. Yassine Zarate RPR QUANTon 01-18-2022 Rapid Plasma Reagin, Quant Non-Reactive Normal NonRea<1:1 [facility] Comment on above: Result Comment: Plea se Note: This test does not meet current guidelines for screening and diagnosis of syphilis. This test is intended for following treatment response in patients being treated for syphilis infection. To screen for syphilis infection, a reflex cascade that includes both RPR and a treponema-specific assay should be utilized, such as Treponema pallidum (Syphilis) Screening [place] (404504) or Rapid Plasma Reagin (RPR) Test With Reflex to Quantitative RPR and Confirmatory Treponema pallidum Antibodies (734891). Performed By: #### C BC #### [facility] [address] [place] [address] Dr. Yassine Zarate RUBELLA AB IGGon 01-18-2022 Rubella Antibodies, IgG 1.96 index Normal Immune >0.99 [facility] Comment on above: Result Comment: Non- immune <0.90 Equivocal 0.90 - 0.99 Immune >0.99 Performed By: #### C BC #### [facility] [address] [place] [address] Dr. Yassine Zarate CBC AUTO DIFFon 01-17-2022 BASO # 0.0 103/ul Normal 0.0-0.1 [facility] Comment on above: Performed By: #### C BC #### [facility] [address] [place] [address] Dr. Yassine Zarate Basophils/100 WBC (Bld) 0.4 % Normal 0.2-2.0 [facility] Comment on above: Performed By: #### C BC #### [facility] [address] [place] [address] Dr. Yassine Zarate EO # 0.1 103/ul Normal 0.0-0.7 [facility] Comment on above: Performed By: #### C BC #### [facility] [address] [place] [address] Dr. Yassine Zarate Eosinophils/100 WBC (Bld) 1.4 % Normal 0.9-7.0 [facility] Comment on above: Performed By: #### C BC #### [facility] [address] [place] [address] Dr. Yassine Zarate Erythrocyte distribution width (RBC) [Ratio] 12.2 % Normal 11.0-15.0 [facility] Comment on above: Performed By: #### C BC #### [facility] [address] [place] [address] Dr. Yassine Zarate Hematocrit (Bld) [Volume fraction] 36.9 % Normal 36.0-48.0 [facility] Comment on above: Performed By: #### C BC #### [facility] [address] [place] [address] Dr. Yassine Zarate Hemoglobin (Bld) [Mass/Vol] 12.1 g/dL Normal 12.0-16.0 [facility] Comment on above: Performed By: #### C BC #### [facility] [address] [place] [address] Dr. Yassine Zarate IG # 0.03 10e3/ul Normal 0.00-0.03 [facility] Comment on above: Performed By: #### C BC #### [facility] [address] [place] [address] Dr. Yassine Zarate IG % 0.4 % Normal 0.0-0.5 [facility] Comment on above: Performed By: #### C BC #### [facility] [address] [place] [address] Dr. Yassine Zarate LYMPH # 2.0 103/ul Normal 1.2-3.8 [facility] Comment on above: Performed By: #### C BC #### [facility] [address] [address] [address] Yassine Zarate Lymphocytes/100 WBC (Bld) 23.8 % Normal 20.5-60.0 [facility] Comment on above: Performed By: #### C BC #### [facility] [address] [address] [address] Yassine Zarate MANUAL DIFF REQ NO Normal [facility] Comment on above: Performed By: #### C BC #### [facility] [address] [place] [address] Dr. Yassine Zarate MCH (RBC) [Entitic mass] 26.9 pg Normal 26.7-34.0 [facility] Comment on above: Performed By: #### C BC #### [facility] [address] [place] [address] Dr. Yassine Zarate MCHC (RBC) [Mass/Vol] 32.8 g/dL Normal 29.9-35.2 [facility] Comment on above: Performed By: #### C BC #### [facility] [address] [place] [address] Dr. Yassine Zarate MCV (RBC) [Entitic vol] 82.0 fL Normal 81.0-99.0 [facility] Comment on above: Performed By: #### C BC #### [facility] [address] [place] [address] Dr. Yassine Zarate MONO # 0.4 103/ul Normal 0.3-0.8 [facility] Comment on above: Performed By: #### C BC #### [facility] [address] [place] [address] Dr. Yassine Zarate Monocytes/100 WBC (Bld) 4.8 % Normal 1.7-12.0 [facility] Comment on above: Performed By: #### C BC #### [facility] [address] [place] [address] Dr. Yassine Zarate NEUT # 5.9 103/ul Normal 1.4-6.5 [facility] Comment on above: Performed By: #### C BC #### [facility] [address] [address] [address] Yassine Zarate Neutrophils/100 WBC (Bld) 69.2 % Normal 43.0-75.0 [facility] Comment on above: Performed By: #### C BC #### [facility] [address] [place] [address] Dr. Yassine Zarate Platelet mean volume (Bld) [Entitic vol] 9.0 fL Critically low 9.5-13.5 [facility] Comment on above: Performed By: #### C BC #### [facility] [address] [address] [address] Yasisne Zarate PLT 283 103/ul Normal 150-450 [facility] Comment on above: Performed By: #### C BC #### [facility] [address] [place] [address] Dr. Yassine Zarate RBC 4.50 106/ul Normal 4.20-5.40 [facility] Comment on above: Performed By: #### C BC #### [facility] [address] [place] [address] Dr. Yassine Zarate WBC 8.5 103/ul Normal 4.0-11.0 [facility] Comment on above: Performed By: #### C BC #### [facility] [address] [place] [address] Dr. Yassine Zarate CULTURE URINEon 01-17-2022 CULTURE URINE Culture Observations : LIGHT GROWTH OF MIXED GENITAL JACQUELYN. NO POTENTIAL PATHOGENS SEEN. Normal [facility] Comment on above: Performed By: #### U RCX #### [facility] [address] [place] [address] Dr. Yassine Zarate GLYCOHEMOGLOBIN A1Con 2021 ADA RECOMMENDATION SEE BELOW Normal [facility] Comment on above: Result Comment: ADA RECOMMENDED LIMIT 4.0 - 6.0 ADA THERAPEUTIC TARGET < 7.0 ACTION SUGGESTED > 7.0 Performed By: #### C BC #### [facility] [address] [place] [address] Dr. Yassine Zarate Glucose [Mass/Vol] 108 mg/dL Normal [facility] Comment on above: Performed By: #### C BC #### [facility] [address] [place], [place] [address] Dr. Yassine Zarate HbA1c (Bld) [Mass fraction] 5.4 % Normal 4.5-6.2 [facility] Comment on above: Performed By: #### C BC #### [facility] [address] [address] [address] Yassine Zarate JENNIFER BOX TEST PT SEND OUTo n 01-17-2022 SENT TO REF LAB 01/17/2022 Normal [facility] Comment on above: Performed By: #### C BC #### [facility] [address] [address] [address] Yassine Zarate TYPE AND SCREENon 01-17-2022 TYPE AND SCREEN Negative Normal [facility] Comment on above: Performed By: #### T NS #### [facility] [address] [address] [address] Yassine Zarate US PREG TVon 12-29-2021 [...] VILMA COBURN Date: 2021-12-29 16:26 Normal [facility] US PELVIS AND TRANSVAGon US PELVIS AND [...] by: BEBO JORGE Date: 2021-11-13 12:05 Normal [facility] HEPATITIS C AB W/REFL TO HCV RNA, QN, PCRon 11-11-2021 HEPATITIS C ANTIBODY Non-Reactive Normal NON-REACTIVE [facility] Comment on above: Performed By: #### 8 042 #### [facility] [address], [address] [place], [place] [id number] Pressurization Mechanic: Holden Mathur MD INDEX 0.04 Normal <1.00 [facility] Comment on above: Result Comment: HCV antibody was non-reactive. There is no laboratory evidence of HCV infection. In most cases, no further action is required. However, if recent HCV exposure is suspected, a test for HCV RNA (test code 45612) is suggested. For additional information please refer to http://education.Signature/faq/UHK89k4 (This link is being provided for informational/ educational purposes only.) Performed By: #### 8 122 #### [facility] [address], [address] [place], [place] [id number] Pressurization Mechanic: Holden Mathur MD LIPID PROFILEon 11-09-2021 CHOL-HDL RATIO NORM SEE BELOW Normal [facility] Comment on above: Result Comment: 3.3 - 4.4 LOW RISK 4.4 - 7.1 AVERAGE RISK 7.1 - 11.0 MODERATE RISK >11.0 HIGH RISK Performed By: #### C BC #### [facility] [address], [place] [address] Dr. Yassine Zarate Cholesterol [Mass/Vol] 176 mg/dL Normal <=200 [facility] Comment on above: Performed By: #### C BC #### [facility] [address], [place] [address] Dr. Yassine Zarate Cholesterol in HDL [Mass/Vol] 58 mg/dL Normal 40-60 [facility] Comment on above: Performed By: #### C BC #### [facility] [address], [place] [address] Dr. Yassine Zarate Cholesterol in LDL [Mass/Vol] 98.4 mg/dL Normal [facility] Comment on above: Performed By: #### C BC #### [facility] [address] [address] [address] Yassine Zarate Cholesterol.total/Ch olesterol in HDL [Mass ratio] 3.0 {ratio} Normal [facility] Comment on above: Performed By: #### C BC #### [facility] [address] [address] [address] Yassine Zarate HDL NORMAL > or = 60 mg/dl - LO W CARDIOVASCULAR RISK <40 mg/dl - HIGH CARDIOVASCULAR RISK Normal [facility] Comment on above: Performed By: #### C BC #### [facility] [address] [address] [address] Yassine Zarate LDL CALC NORMAL SEE BELOW Normal [facility] Comment on above: Result Comment: <100 mg/dl OPTIMAL 100 - 129 mg/dl NEAR OR ABOVE OPTIMAL 130 - 159 mg/dl BORDERLINE HIGH 160 - 189 mg/dl HIGH >190 mg/dl VERY HIGH Performed By: #### C BC #### [facility] [address] [address] [address] Yassine Zarate Triglyceride [Mass/Vol] 98 mg/dL Normal <=150 [facility] Comment on above: Performed By: #### C BC #### [facility] [address] [address] [address] Yassine Zarate VLDL CALC 19.6 mg/dL Normal [facility] Comment on above: Performed By: #### C BC #### [facility] [address] [address] [address] Yassine Zarate PROF 14(COMP METB)on 022 Albumin [Mass/Vol] 3.8 g/dL Normal 3.4-5.0 [facility] Comment on above: Performed By: #### C BC #### [facility] [address] [place] [address] Dr. Yassine Zarate Albumin/Globulin [Mass ratio] 1.1 {ratio} Normal [facility] Comment on above: Performed By: #### C BC #### [facility] [address] [address] [address] Yassine Zarate ALP [Catalytic activity/Vol] 79 U/L Normal 46-116 [facility] Comment on above: Performed By: #### C BC #### [facility] [address] [place] [address] Dr. Yassine Zarate ALT [Catalytic activity/Vol] 16 U/L Normal 14-59 [facility] Comment on above: Performed By: #### C BC #### [facility] [address] [place] [address] Dr. Yassine Zarate Anion gap [Moles/Vol] 14.4 mmol/L Normal [facility] Comment on above: Performed By: #### C BC #### [facility] [address] [place] [address] Dr. Yassine Zarate AST [Catalytic activity/Vol] 13 U/L Critically low 15-37 [facility] Comment on above: Performed By: #### C BC #### [facility] [address] [place] [address] Dr. Yassine Zarate Bilirubin [Mass/Vol] 0.5 mg/dL Normal 0.2-1.0 [facility] Comment on above: Performed By: #### C BC #### [facility] [address] [place] [address] Dr. Yassine Zarate Calcium [Mass/Vol] 8.8 mg/dL Normal 8.5-10.1 [facility] Comment on above: Performed By: #### C BC #### [facility] [address] [place] [address] Dr. Yassine Zarate Chloride [Moles/Vol] 103 mmol/L Normal 98-107 [facility] Comment on above: Performed By: #### C BC #### [facility] [address] [address] [address] Yassine Zarate CO2 [Moles/Vol] 25.7 mmol/L Normal 21.0-32.0 [facility] Comment on above: Performed By: #### C BC #### [facility] [address] [address] [address] Yassine Zarate Creatinine [Mass/Vol] 0.69 mg/dL Normal 0.55-1.02 [facility] Comment on above: Performed By: #### C BC #### [facility] [address] [address] [address] Yassine Zarate EGFR-AF BARBADIAN >60 Normal >=60 [facility] Comment on above: Performed By: #### C BC #### [facility] [address] [place] [address] Dr. Yassine Zarate EGFR-NON AF BARBADIAN >60 Normal >=60 [facility] Comment on above: Performed By: #### C BC #### [facility] [address] [place] [address] Dr. Yassine Zarate Globulin (S) [Mass/Vol] 3.5 g/dL Normal [facility] Comment on above: Performed By: #### C BC #### [facility] [address] [place] [address] Dr. Yassine Zarate Glucose [Mass/Vol] 85 mg/dL Normal 74-106 [facility] Comment on above: Performed By: #### C BC #### [facility] [address] [address] [address] Yassine Zarate Potassium [Moles/Vol] 4.1 mmol/L Normal 3.5-5.1 [facility] Comment on above: Performed By: #### C BC #### [facility] [address] [place] [address] Dr. Yassine Zarate Protein [Mass/Vol] 7.3 g/dL Normal 6.4-8.2 [facility] Comment on above: Performed By: #### C BC #### [facility] [address] [place] [address] Dr. Yassine Zarate Sodium [Moles/Vol] 139 mmol/L Normal 136-145 [facility] Comment on above: Performed By: #### C BC #### [facility] [address] [address] [address] Yassine Zarate Urea nitrogen [Mass/Vol] 13.0 mg/dL Normal 7.0-18.0 [facility] Comment on above: Performed By: #### C BC #### [facility] [address] [address] [address] Yassine Zarate Urea nitrogen/Creatinine [Mass ratio] 18.8 mg/mg Normal [facility] Comment on above: Performed By: #### C BC #### [facility] [address] [address] [address] Yassine Zarate BASIC METABOLIC PANELon 05-04 BUN/CREATININE RATIO NOT APPLICABLE Normal 6-22 [facility] Comment on above: Order Comment: FASTI NG:NO FASTING: NO Performed By: #### 1 7306, 0799, 54416, 41669 #### [facility] [address], [address] [place] [address] Pressurization Mechanic: Holden Mathur MD Calcium [Mass/Vol] 9.6 mg/dL Normal 8.6-10.2 [facility] Comment on above: Order Comment: FASTI NG:NO FASTING: NO Performed By: #### 1 7306, 6399, 71398, 05641 #### [facility] [address], [address] [place] [address] Pressurization Mechanic: Holden Mathur MD Chloride [Moles/Vol] 105 mmol/L Normal 98-110 [facility] Comment on above: Order Comment: FASTI NG:NO FASTING: NO Performed By: #### 1 7306, 6399, 08468, 51120 #### [facility] [address], [address] [place] [address] Pressurization Mechanic: Holden Mathur MD CO2 [Moles/Vol] 24 mmol/L Normal 20-32 [facility] Comment on above: Order Comment: FASTI NG:NO FASTING: NO Performed By: #### 1 7306, 6399, 94276, 39216 #### [facility] [address], [address] [place] [address] Pressurization Mechanic: Holden Mathur MD Creatinine [Mass/Vol] 0.74 mg/dL Normal 0.50-1.10 [facility] Comment on above: Order Comment: FASTI NG:NO FASTING: NO Performed By: #### 1 7306, 6399, 97044, 07596 #### [facility] [address], [address] [place] [address] Pressurization Mechanic: Holden Mathur MD eGFR NON-AFR. BARBADIAN 110 mL/min/1.73m2 Normal > OR = 60 [facility] Comment on above: Order Comment: FASTI NG:NO FASTING: NO Performed By: #### 1 7306, 6399, 32691, 55649 #### [facility] [address] [address] Pressurization Mechanic: Holden Mathur MD GFR/1.73 sq M.predicted among blacks MDRD (S/P/Bld) [Vol rate/Area] 128 mL/min/{1.73_m2} Normal > OR = 60 [facility] Comment on above: Order Comment: FASTI NG:NO FASTING: NO Performed By: #### 1 7306, 6399, 84089, 54287 #### [facility] [address] [address] Pressurization Mechanic: Holden Mathur MD Glucose [Mass/Vol] 83 mg/dL Normal 65-139 [facility] Comment on above: Order Comment: FASTI NG:NO FASTING: NO Result Comment: Non-fasting reference interval Performed By: #### 1 7306, 6399, 46088, 66269 #### [facility] [address] [address] Pressurization Mechanic: Holden Mathur MD Potassium [Moles/Vol] 4.5 mmol/L Normal 3.5-5.3 [facility] Comment on above: Order Comment: FASTI NG:NO FASTING: NO Performed By: #### 1 7306, 6399, 14011, 15364 #### [facility] of [address], [address] [place] [address] Pressurization Mechanic: Holden Mathur MD Sodium [Moles/Vol] 138 mmol/L Normal 135-146 [facility] Comment on above: Order Comment: FASTI NG:NO FASTING: NO Performed By: #### 1 7306, 6399, , 26870 #### [facility] of [address], [address] [place] [address] Pressurization Mechanic: Holden Mathur MD Urea nitrogen [Mass/Vol] 16 mg/dL Normal 7-25 [facility] Comment on above: Order Comment: FASTI NG:NO FASTING: NO Performed By: #### 1 7306, 6399, , 75864 #### [facility] of [address], [address] [place] [address] Pressurization Mechanic: Holden Mathur MD CBC (INCLUDES DIFF/PLT)on Basophils (Bld) [#/Vol] 0.05 10*3/uL Normal 0-200 [facility] Comment on above: Performed By: #### 1 7306, 63, , 81722 #### [facility] [address] [place] [address] Pressurization Mechanic: Holden Mathur MD Basophils/100 WBC (Bld) 0.8 % Normal [facility] Comment on above: Performed By: #### 1 7306, 63, , 71856 #### [facility] [address] [place] [address] Pressurization Mechanic: oHlden Mathur MD Eosinophils (Bld) [#/Vol] 0.112 10*3/uL Normal 15-500 [facility] Comment on above: Performed By: #### 1 7306, 6399, 58896, 29290 #### [facility] of [address], [address] [place] [address] Pressurization Mechanic: Holden Mathur MD Eosinophils/100 WBC (Bld) 1.8 % Normal [facility] Comment on above: Performed By: #### 1 7306, 6399, 59250, 60479 #### [facility] [place] [address] Pressurization Mechanic: Holden Mathur MD Erythrocyte distribution width (RBC) [Ratio] 12.3 % Normal 11.0-15.0 [facility] Comment on above: Performed By: #### 1 7306, 6399, , 71439 #### [facility] [place] [address] Pressurization Mechanic: Holden Mathur MD Hematocrit (Bld) [Volume fraction] 39.4 % Normal 35.0-45.0 [facility] Comment on above: Performed By: #### 1 7306, 6399, , 03330 #### [facility] [place] [address] Pressurization Mechanic: Holden Mathur MD Hemoglobin (Bld) [Mass/Vol] 13.2 g/dL Normal 11.7-15.5 [facility] Comment on above: Performed By: #### 1 7306, 63, , 86509 #### [facility] [place] [address] Pressurization Mechanic: Holden Mathur MD Lymphocytes (Bld) [#/Vol] 1.835 10*3/uL Normal 850-3900 [facility] Comment on above: Performed By: #### 1 7306, 63, , 21662 #### [facility] [place] [address] Pressurization Mechanic: Holden Mathur MD Lymphocytes/100 WBC (Bld) 29.6 % Normal [facility] Comment on above: Performed By: #### 1 7306, 6399, 63061, 95253 #### [facility] [place] [address] Pressurization Mechanic: Holden Mathur MD MCH (RBC) [Entitic mass] 27.6 pg Normal 27.0-33.0 [facility] Comment on above: Performed By: #### 1 7306, 6399, , 26198 #### [facility] [place] [address] Pressurization Mechanic: Holden Mathur MD MCHC (RBC) [Mass/Vol] 33.5 g/dL Normal 32.0-36.0 [facility] Comment on above: Performed By: #### 1 7306, 6399, , 66865 #### [facility] [place] [address] Pressurization Mechanic: Holden Mathur MD MCV (RBC) [Entitic vol] 82.4 fL Normal 80.0-100.0 [facility] Comment on above: Performed By: #### 1 7306, 6399, , 44870 #### [facility] [place] [address] Pressurization Mechanic: Holden Mathur MD Monocytes (Bld) [#/Vol] 0.459 10*3/uL Normal 200-950 [facility] Comment on above: Performed By: #### 1 7306, 63, , 15194 #### [facility] [place] [address] Pressurization Mechanic: Holden Mathur MD Monocytes/100 WBC (Bld) 7.4 % Normal [facility] Comment on above: Performed By: #### 1 7306, 63, , 58816 #### [facility] [place] [address] Pressurization Mechanic: Holden Mathur MD Neutrophils (Bld) [#/Vol] 3.745 10*3/uL Normal 3442-6197 [facility] Comment on above: Performed By: #### 1 7306, 6399, , 00750 #### [facility] [place] [address] Pressurization Mechanic: Holden Mathur MD Neutrophils/100 WBC (Bld) 60.4 % Normal [facility] Comment on above: Performed By: #### 1 7306, 6399, 67777, 76540 #### [facility] of [address], [address] [place] [address] Pressurization Mechanic: Holden Mathur MD Platelet mean volume (Bld) [Entitic vol] 10.0 fL Normal 7.5-12.5 [facility] Comment on above: Performed By: #### 1 7306, 6399, 08869, 93220 #### [facility] of [address], [address] [place] [address] Pressurization Mechanic: Holden Mathur MD Platelets (Bld) [#/Vol] 303 10*3/uL Normal 140-400 [facility] Comment on above: Performed By: #### 1 7306, 6399, 11670, 07991 #### [facility] of [address], [address] [place] [address] Pressurization Mechanic: Holden Mathur MD RBC (Bld) [#/Vol] 4.78 10*6/uL Normal 3.80-5.10 [facility] Comment on above: Performed By: #### 1 7306, 6399, 69034, 75348 #### [facility] of [address], [address] [place] [address] Pressurization Mechanic: Holden Mathur MD WBC (Bld) [#/Vol] 6.2 10*3/uL Normal 3.8-10.8 [facility] Comment on above: Performed By: #### 1 7306, 6399, 03156, 90975 #### [facility] of [address], [address] [place] [address] Pressurization Mechanic: Holden Mathur MD TEST AUTHORIZATIONon CLIENT CONTACT: DARRIN Sykes Normal [facility] Comment on above: Performed By: #### 1 7306, 6399, 19960, 36764 #### [facility] of [address], [address] [place] [address] Pressurization Mechanic: Holden Mathur MD COMMENT Normal [facility] Comment on above: Result Comment: Plea se have the ordering physician or his or her authorized assisted sales representative sign a copy of this report and promptly return it by faxing it to: [phone] or by returning the form to your cereal maker. Performed By: #### 1 7306, 6399, 85905, 89574 #### [facility] [address], [address] [place] [address] Pressurization Mechanic: Holden Mathur MD REPORT ALWAYS MESSAGE SIGNATURE Normal [facility] Comment on above: Result Comment: The laboratory testing on this patient was verbally requested or confirmed by the ordering physician or his or her authorized assisted sales representative after contact with an employee of [employer]. Federal regulations require that we maintain on file written authorization for all laboratory testing. Accordingly we are asking that the ordering physician or his or her authorized assisted sales representative sign a copy of this report and promptly return it to the software client architect. Signature: Performed By: #### 1 7306, 6399, 60538, 90342 #### [facility] [place] [address] Pressurization Mechanic: Holden Mathur MD TEST CODE: [id number] Normal [facility] Comment on above: Performed By: #### 1 7306, 6399, 57749, 82691 #### [facility] [place] [address] Pressurization Mechanic: Holden Mathur MD TEST NAME: TSH W/REFLEX TO FT4 Normal [facility] Comment on above: Performed By: #### 1 7306, 6399, 84131, 57632 #### [facility] [place] [address] Pressurization Mechanic: Holden Mathur MD TSH W/REFLEX TO FT4on 2021 TSH W/REFLEX TO FT4 1.13 mIU/L Normal [facility] Comment on above: Result Comment: Refe rence Range > or = 20 Years 0.40-4.50 Ranges First trimester 0.26-2.66 Second trimester 0.55-2.73 Third trimester 0.43-2.91 Performed By: #### 1 7306, 6399, 92345, 66941 #### [place] [address] Pressurization Mechanic: Holden Mathur MD VITAMIN D,25-OH,TOTAL,IAon 0 - [...] D, (D2,D3), LC/MS/MS is recommended: order code 15331 (patients >2yrs). See Note 1 Note 1 For additional information, please refer to http://[email or web address]/faq/CGN715 (This link is being provided for informational/ educational purposes only.) Performed By: #### 1 7306, 6399, 49102, 41652 #### [facility] [address] Pressurization Mechanic: Holden Mathur MD COVID-19 [facility] 07-08-19 21 SARS-CoV-2 (COVID-19) RNA SARAH+probe Ql (Unsp spec) Not detected Normal Not Detected [facility] Comment on above: Order Comment: Healt hcare Worker?: N Result Comment: This nucleic acid amplification test was developed and its performance characteristics determined by [employer]. Nucleic acid amplification tests include RT- PCR [...] detected) result in this assay. PERFORMED BY: [facility] [address] [place] [address] PATHOLOGIST PRESIDENT + PUBLISHER JADE TOMLINSON M.D. Performed By: #### C ORONAVIRUS #### [facility] , Vital Signs Date Time Vital Sign Value Performing Clinician Dieudonne keen 03-23-2022 16:07-0500 Body weight 81.1944 kg DARRIN PERALES . [facility] Comment on above: Performed By: #### A FPMAT #### [facility] [address] [address] [address] Yassine Zarate Encounters Encounter Date Encounter Type Care Provider Facility Start: 04-23-2023 End: 04-24-[address] [place] [address] Start: 04-09-2023 End: 04-09-2023 ambulatory SANTOSH BARLOW [...] of Female P erineum, External Approach DARRIN PEARLES . Start: 08-03-2022 Drainage of Amniotic Fluid, Therapeutic from Products of Conception, Via Natural or Artificial Opening DARRIN PERALES . Start: 08-03-2022 Introduction of Othe r Hormone into Peripheral Vein, Percutaneous Approach DARRIN PERALES . Payers Date Payer Category Payer Unknown [id number] 2.16.84 0.1.408094.3.579.2.593 1992 Unknown [id number] 2.16.84 0.1.896553.3.579.2.593 1992 Unknown [id number] 2.16.84 0.1.123611.3.579.2.593 1992 Unknown [id number] 2.16.84 0.1.616954.3.579.2.593 1992 Unknown [id number] 2.16.84 0.1.611649.3.579.2.593 1992 Unknown [id number] 2.16.84 0.1.413265.3.579.2.593 1992 Unknown [id number] 2.16.84 0.1.858886.3.579.2.593 1992 Unknown [id number] 2.16.84 0.1.291780.3.579.2.593 1992 Unknown [id number] 2.16.84 0.1.348212.3.579.2.593 1992 Unknown [id number] 2.16.84 0.1.418576.3.579.2.593 1992 Unknown [id number] 2.16.84 0.1.412844.3.579.2.593 1992 Unknown [id number] 2.16.84 0.1.738760.3.579.2.593 1992 Unknown [id number] 2.16.84 0.1.489323.3.579.2.593 1992 Unknown [id number] 2.16.840 .1.214751.3.579.2.1259 1992 Unknown [id number] 2.16.840 .1.773560.3.579.2.1259 1992 Unknown [id number] 2.16.84 0.1.740537.3.579.2.1286 1959 Self-pay 1959 Unknown [id number] 1959 Unknown [id number] Unknown [id number] 2.16.84 0.1.735549.3.579.2.593 Summary Purpose Family History No Family History Records FoundNo Family History Records FoundNo Family History Records FoundNo Family History Records FoundNo Family History Records Found Advance Directives No Advanced Directives Records FoundNo Advanced Directives Records FoundNo Advanced Directives Records FoundNo Advanced Directives Records FoundNo Advanced Directives Records Found Additional Source Comments INFORMATION SOURCE (unrecogn ized section and content) DATE CREATED AUTHOR 05/23/2021 [facility] DATE CREATED AUTHOR AUTHOR'S ORGANIZ ATION 11/12/2021 [facility] DATE CREATED AUTHOR AUTHOR'S ORGANIZ ATION 08/12/2022 [facility] DATE CREATED AUTHOR AUTHOR'S ORGANIZ ATION 04/09/[address] [facility] EPIC DATE CREATED AUTHOR AUTHOR'S BUNNY ATION 04/26/2023 [facility] FOR RECORDS PERTAINING TO PATIENTS WHO [...] BE BASED ON THE PRIMARY CLINICAL RECORDS. [facility] [employer] [facility]. provides no warranty or guarantee of the accuracy or completeness of information in this document.
[2023-05-10 18:08] LABS: Age Gdln ACOG Testing Note (.); HPV Aptima Negative (Negative); IGP, Aptima HPV, rfx 16/18,45 Note (.)
== END 2023-05-07 20:40 | disposition home or self-care (01) ==
LOC: LAB 20:39
PROVIDERS: PCP Family Medicine; Visit Provider Physician Assistant
DX: Z34.92 Encounter for supervision of normal pregnancy, unspecified, second trimester (principal); Z01.419 Encounter for gynecological examination (general) (routine) without abnormal findings
CPT/HCPCS: 36415; 82105; 87624; G0145

== ENCOUNTER 2023-09-19 20:10 | Outpatient (REF) | payer BC, MEDICAID, SELFPAY | END 2023-09-19 20:11 | disposition home or self-care (01) | LOC: LAB 20:10 | PROVIDERS: PCP Family Medicine; Visit Provider Obstetrics & Gynecology | DX: Z34.93 Encounter for supervision of normal pregnancy, unspecified, third trimester (principal) | CPT/HCPCS: 87081; 87150; 87186 ==

== ENCOUNTER 2023-09-24 19:12 | Inpatient (IN) | payer BC, MEDICAID, SELFPAY ==
[2023-09-24] VITALS (15 sets, daily range): BP systolic 88–127; BP diastolic 63–85; PULSE 75–80; TEMP 36.1; O2SAT 78–99
--- OUTSIDE RECORDS SUMMARY | 2023-09-24 19:15 | XMS_ITS | CCD ---
Author Organization [facility] Care Team Providers Care Long Chain Quiller Tender Name Role Phone DIAZ .YADI Consulting Unavailable FURLONG, DR TAY Krishna Primary Care Unavailable DIAZ ., YADI Attending Unavailable DIAZ ., YADI Admitting Unavailable CAIN ., DR FROST Consulting Unavailable FURLONG, DR TAY Krishna Primary Care Unavailable CAIN ., DR FROST Attending Unavailable CAIN ., DR FROST Admitting Unavailable ZIEBER, DR VILMA Webb Consulting Unavailable [place], DR BEBO Chowdhury Consulting Unavailable FURLONG, DR TAY Krishna Primary Care Unavailable CAIN ., DR FROST Attending Unavailable CAIN ., DR FROST Admitting Unavailable CAIN ., DR FROST Consulting Unavailable IAIN, MONTRELL Consulting Unavailable FURLONG, DR TAY Krishna Primary Care Unavailable IAIN, MONTRELL Attending Unavailable IAIN, MONTRELL Admitting Unavailable CAIN ., DR FROST Consulting Unavailable FURLONG, DR TAY Krishna Primary Care Unavailable CAIN ., DR FROST Attending Unavailable CAIN ., DR FROST Admitting Unavailable FURLONG, DR TAY Krishna Primary Care Unavailable CAIN ., DR FROST Attending Unavailable CAIN ., DR FROST Admitting Unavailable PAY ., DR GARLAND Consulting Unavailable PAY ., DR GARLAND Attending Unavailable PAY ., DR GARLAND Admitting Unavailable FURLONG, DR TAY Krishna Primary Care Unavailable CAIN ., DR FROST Consulting Unavailable FURLONG, DR TAY Krishna Primary Care Unavailable CAIN ., DR FROST Attending Unavailable CAIN ., DR FROST Admitting Unavailable HILLARY MURPHY Consulting Unavailable LORENZO GARZA Consulting Unavailable CAIN ., DR FROST Procedure Practitioner Unavail able ZIEBER, DR VILMA Webb Consulting Unavailable REQUEST, DR ISSA LISTED Primary Care Unavaila ble DIAZ ., YADI Attending Unavailable DIAZ ., YADI Admitting Unavailable DIAZ ., YADI Consulting Unavailable CAIN ., DR FROST Consulting Unavailable FURLONG, DR TAY Krishna Primary Care Unavailable CAIN ., DR FROST Attending Unavailable CAIN ., DR FROST Admitting Unavailable CAIN ., DR FROST Consulting Unavailable FURLONG, DR TAY Krishna Primary Care Unavailable CAIN ., DR FROST Attending Unavailable CAIN ., DR FROST Admitting Unavailable CAIN ., DR FROST Consulting Unavailable FURLONG, DR TAY Krishna Primary Care Unavailable CAIN ., DR FROST Attending Unavailable CAIN ., DR FROST Admitting Unavailable CAIN ., DR FROST Consulting Unavailable FURLONG, DR TAY Krishna Primary Care Unavailable CAIN ., DR FROST Attending Unavailable CAIN ., DR FROST Admitting Unavailable ZIEBER, DR VILMA Webb Consulting Unavailable DIAZ ., YADI Consulting Unavailable FURLONG, DR TAY Krishna Primary Care Unavailable CAIN ., DR FROST Attending Unavailable CAIN ., DR FROST Admitting Unavailable Furlong Tay ZEE Primary Care Provider [phone] Roman Tafoya DO Unavailable Roman Tafoya DO Primary Care Provider [phone] IAIN, MONTRELL L Referring Unavailable IAIN, MONTRELL L Primary Care Unavailable MANUEL WERNER Attending Unavailable IAIN, MONTRELL L Referring Unavailable IAIN, MONTRELL L Primary Care Unavailable MANUEL WERNER Attending Unavailable IAIN, MONTRELL L Referring Unavailable IAIN, MONTRELL L Primary Care Unavailable DARLING JOHNSON Referring Unavailable IAIN, MONTRELL L Primary Care Unavailable SANTOSH GUADALUPE Attending Unavailable DIAZYADI LUU Attending Unavailable SANTOSH GUADALUPE Attending Unavailable YADI PERALES Attending Unavailable SANTOSH GUADALUPE Attending Unavailable SANTOSH GUADALUPE Attending Unavailable SANTOSH GUADALUPE Attending Unavailable SANTOSH GUADALUPE Attending Unavailable ROMAN TAFOYA Primary Care Unavailable BEBO AVILA Admitting Unavailable ERIKA HOGAN Attending Unavaila ROMAN Riley Primary Care Unavailable SANTOSH GUADALUPE R Referring Unavailable IAIN, MONTRELL L Primary Care Unavailable IAIN, MONTRELL L Referring Unavailable IAIN, MONTRELL L Primary Care Unavailable CAIN, SANTOSH R Referring Unavailable IAIN, MONTRELL L Primary Care Unavailable CAIN, SANTOSH R Referring Unavailable IAIN, MONTRELL L Primary Care Unavailable HEALTH, 360 Referring Unavailable ROMAN TAFOYA Primary Care Unavailable CHERRIE CORNELL Attending Unavailable CAIN, SANTOSH R Referring Unavailable ROMAN TAFOYA Primary Care Unavailable DARLING JOHNSON Attending Unavailable IAIN, MONTRELL L Referring Unavailable IAIN, MONTRELL L Primary Care Unavailable CAIN, SANTOSH R Referring Unavailable IAIN, MONTRELL L Primary Care Unavailable DOCHEVA, CHERRIE P Attending Unavailable CAIN, SANTOSH R Referring Unavailable IAIN, MONTRELL L Primary Care Unavailable BEBO AVILA Admitting Unavailable BEBO AVILA Attending Unavailable IAIN, MONTRELL L Primary Care Unavailable CAIN, SANTOSH R Referring Unavailable IAIN, MONTRELL L Primary Care Unavailable CAIN, SANTOSH R Referring Unavailable IAIN, MONTRELL L Primary Care Unavailable CAIN, SANTOSH R Referring Unavailable ROMAN TAFOYA Primary Care Unavailable BETO CAO Attending Unavailable ROMAN TAFOYA Referring Unavailable ROMAN TAFOYA Primary Care Unavailable Allergies Allergy Classification Reported Allergen(s) Allergy Type Date of Onset Reaction(s) Facility (2 sources) Penicillins; Translations: [PENICILLINS] Propensity to adverse reactions to drug 09-14-2016 [facility] Medications Current Medications Medication Drug Class(es) Dates Sig (Normalized) Sig (Original) escitalopram 20 mg oral tablet (3 sources) Serotonin Reuptake Inhibitor Start: 05-07-2023 End: 05-06-2024 take 1 tablet by mouth in the morning escitalopram (Lexapro) 20 MG tablet Indications: Anxiety, generalized (CMS/HCC) Take 1 tablet (20 mg) by mouth in the morning. 30 tablet 05/07/2023 05/06/2024 Active Magnesium (4 sources) Start: 03-09-2023 End: 03-08-2024 take 1 tablet by mouth in the morning magnesium 200 MG tablet Indications: Missed menses Take 1 tablet (200 mg) by mouth in the morning. 30 tablet 11 03/09/2023 03/08/2024 Active End: 05-14-2023 magnesium 200 mg tablet Take by mouth. 0 05/14/2023 Discontinued (Alternate therapy) magnesium 200 mg tablet Take by mouth. 0 Active magnesium oxide 400 mg oral tablet (2 sources) Start: 05-14-2023 take 1 tablet by mouth in the morning, then take 1 tablet by mouth at bedtime magnesium oxide (MAGOX) 400 mg tablet Indications: 19 weeks gestation of , headache in second trimester Take 1 tablet (400 mg total) by mouth in the morning and 1 tablet (400 mg total) before bedtime. 30 tablet 1 05/14/2023 Active omeprazole 20 mg delayed release oral capsule (5 sources) Proton Pump Inhibitor Start: 03-09-2023 End: 03-08-2024 take 1 capsule by mouth at bedtime omeprazole (PriLOSEC) [address] capsule Indications: Missed menses Take 1 capsule (20 mg) by mouth at bedtime Do not crush or chew. 30 capsule 11 03/09/2023 03/08/2024 Active omeprazole (PriL OSEC OTC) 20 mg EC tablet Prilosec OTC 20 mg tablet,delayed release 0 Active ondansetron 4 mg disintegrating oral tablet (3 sources) Serotonin-3 Receptor Antagonist take 1 tablet by mouth every eight hours as needed for nausea and vomiting ondansetron ODT (ZOFRAN ODT) 4 mg disintegrating tablet Dissolve 1 tablet (4 mg total) on tongue every 8 (eight) hours as needed for nausea or vomiting. 0 Active PLUS, CALCIUM CARB, 27 mg iron- 1 mg tablet (3 sources) Start: 01-31-20 PLUS, CALCIUM CARB, 27 mg iron- 1 mg tablet Vit-Fe Fumarate-FA ( Vitamins) 28-0.8 MG tablet (2 sources) Start: 03-15-20 End: 03-14-20 24 take 1 tablet by mouth in the morning Vit-Fe Fumarate-FA ( Vitamins) 28-0.8 MG tablet Indications: care in first trimester Take 1 tablet by mouth in the morning. 30 tablet 11 03/15/2023 03/14/2024 Active progesterone (FIRST-PROGESTERONE VGS) 200 mg suppository (3 sources) Start: 02-06-20 progesterone (FIRST-PROGESTERONE VGS) 200 mg suppository Insert 1 suppository (200 mg total) into the vagina. 0 02/05/2023 Active sertraline 50 mg oral tablet (5 sources) Serotonin Reuptake Inhibitor Start: 03-09-20 End: 03-08-20 24 take 0.5 tablet by mouth in the morning sertraline (ZOLOFT) 50 mg tablet Take 0.5 tablets (25 mg total) by mouth in the morning. 0 03/09/2023 03/08/2024 Active Problems Active Problems Problem Classification Problem Date Documented Date Episodic/Chronic Anxiety disorders (6 sources) Mixed anxiety and depressive disorder; Translations: [Other specified anxiety disorders] Onset: 07-01-2015 11-26-2019 Chronic Asthma (3 sources) Asthma; Translations: [Unspecified asthma, uncomplicated] Onset: 02-13-2005 11-26-2019 Chronic Early or threatened labor (1 source) False labor, unspecified; Translations: [False labor, unspecified] Onset: 09-17-2023 Episodic Esophageal disorders (1 source) Gastro-esophageal reflux disease without esophagitis; Translations: [GERD WITHOUT ESOPHAGITIS] Onset: 08-11-2022 Chronic Headache; including migraine (1 source) Headache; including migraine; Translations: [Headache, unspecified] Onset: 05-14-2023 Malaise and fatigue (1 source) Other fatigue; Translations: [Other fatigue] Onset: 08-28-2023 Episodic Menstrual disorders (4 sources) Irregular menstruation, unspecified; Translations: [IRREGULAR MENSTRUATION UNSPECIFIED] Onset: 01-17-2022 Chronic Mood disorders (4 sources) Mood disorders; Translations: [Depression, unspecified] Onset: 05-14-2023 03-15-2023 OB-related trauma to perineum and vulva (1 source) Fourth degree perineal laceration during delivery; Translations: [FOURTH DEG PERINEAL LAC DUR DELIV] Onset: 08-11-2022 Episodic Other aftercare (1 source) Other exterminator helper termite (current) drug therapy; Translations: [OTH SPACE SYSTEMS OPERATIONS SUPERINTENDENT CURRENT DRUG THERAPY] Onset: 08-11-2022 Episodic Other complications of ; puerperium affecting management of mother (3 sources) Streptococcus B carrier state complicating childbirth; Translations: [STREP B MARIEE STATE COMP CHILDBIRTH] Onset: 08-02-2022 Episodic Other complications of ; puerperium affecting management of mother (1 source) Diseases of the digestive system complicating childbirth; Translations: [DZ DIGESTIVE SYSTEM COMP CHILDBIRTH] Onset: 08-11-2022 Episodic Other complications of (1 source) Maternal obesity complicating , childbirth and the puerperium, antepartum; Translations: [Obesity complicating , second trimester] 05-14-2023 Chronic Other complications of (1 source) Obesity complicating , unspecified trimester; Translations: [Obesity complicating , unspecified trimester] Onset: 06-13-2023 Chronic Other complications of (1 source) Obesity complicating , second trimester; Translations: [Obesity complicating , second trimester] Onset: 05-14-2023 Chronic Other complications of (4 sources) Uterine size-date discrepancy, third trimester; Translations: [UTERINE SZ-DATE DISCREPANCY 3RD TRI] Onset: 06-15-2022 Episodic Other complications of (4 sources) Other viral diseases complicating , third trimester; Translations: [OTH VIRAL DZ COMP PREG THIRD TRI] Onset: 06-02-2022 Episodic Other complications of (1 source) Depressive disorder in mother complicating ; Translations: [Other mental disorders complicating , unspecified trimester] 05-14-2023 Episodic Other complications of (1 source) Anxiety in ; Translations: [Other mental disorders complicating , unspecified trimester] 05-14-2023 Episodic Other complications of (3 sources) History of fourth degree perineal laceration; Translations: [Supervision of with other poor reproductive or obstetric history, unspecified trimester] Onset: 05-14-2023 05-14-2023 Episodic Other complications of (1 source) Headache; Translations: [Other specified related conditions, second trimester] 05-14-2023 Episodic Other female genital disorders (4 sources) Mittelschmerz; Translations: [MITTELSCHMERZ] Onset: 11-12-2021 Chronic Other lower respiratory disease (1 source) Snoring; Translations: [Snoring] Onset: 08-28-2023 Episodic Other nervous system disorders (3 sources) Carpal tunnel syndrome; Translations: [Carpal tunnel syndrome, unspecified upper limb] Onset: 11-26-2019 11-26-2019 Chronic Other nutritional; endocrine; and metabolic disorders (1 source) Obesity Onset: 09-12-2023 Chronic Other upper respiratory infections (2 sources) Acute frontal sinusitis, unspecified; Translations: [Upper respiratory infection] Onset: 08-20-2023 Episodic Residual codes; unclassified (2 sources) Sleep apnea, unspecified; Translations: [Sleep apnea, unspecified] Onset: 08-28-2023 Chronic Residual codes; unclassified (1 source) Sleep apnea Onset: 08-28-2023 Chronic Residual codes; unclassified (1 source) 39 weeks gestation of ; Translations: [39 WEEKS GESTATION OF ] Onset: 08-11-2022 Episodic Residual codes; unclassified (1 source) 32 weeks gestation of ; Translations: [32 WEEKS GESTATION OF ] Onset: 06-24-2022 Episodic Residual codes; unclassified (1 source) 31 weeks gestation of ; Translations: [31 WEEKS GESTATION OF ] Onset: 06-05-2022 Episodic Residual codes; unclassified (1 source) Gestation period, 19 weeks; Translations: [19 weeks gestation of ] 05-13-2023 Episodic Screening and history of mental health and substance abuse codes (1 source) Personal history of nicotine dependence; Translations: [PERSONAL HISTORY OF NICOTINE DEPEND] Onset: 08-11-2022 Episodic Spondylosis; intervertebral disc disorders; other back problems (3 sources) Lumbar spondylosis; Translations: [Spondylosis without myelopathy or radiculopathy, lumbar region] Onset: 05-21-2019 10-08-2019 Chronic Unclassified (1 source) Sinus Problem Onset: 08-28-2023 Unclassified (1 source) High Risk Gestation Onset: 09-21-2023 Unclassified (1 source) Non-stress Test Onset: 09-12-2023 Unclassified (1 source) Problem Onset: 06-07-2023 Unclassified (1 source) Eye Exam Onset: 05-23-2023 Unclassified (1 source) use of zoloft during Onset: 05-14-2023 Viral infection (1 source) COVID-19; Translations: [COVID-19] Onset: 06-05-2022 Past or Other Problems Problem Classification Problem Date Documented Date Episodic/Chronic Blindness and vision defects (4 sources) Bilateral myopia of eyes; Translations: [Myopia, bilateral] Onset: 05-23-2023 05-23-2023 Episodic Conditions associated with dizziness or vertigo (1 source) Dizziness and giddiness; Translations: [Dizziness and giddiness] Onset: 06-07-2023 Episodic Immunizations and screening for infectious disease (2 sources) Contact with and (suspected) exposure to infections with a predominantly sexual mode of transmission; Translations: [Encounter for screening for human papillomavirus (HPV)] Onset: 04-21-2022 Episodic Other complications of (1 source) Maternal care for other abnormalities of pelvic organs, first trimester; Translations: [MAT CARE OTH ABN PELV ORGAN 1ST TRI] Onset: 01-02-2022 Episodic Other complications of (1 source) Supervision of high risk , unspecified, unspecified trimester; Translations: [Supervision of high risk , unspecified, unspecified trimester] Onset: 06-13-2023 Episodic Other complications of (1 source) Other mental disorders complicating , unspecified trimester; Translations: [Other mental disorders complicating , unspecified trimester] Onset: 05-14-2023 Episodic Other complications of (1 source) Supervision of with other poor reproductive or obstetric history, unspecified trimester; Translations: [Supervision of with other poor reproductive or obstetric history, unspecified trimester] Onset: 05-14-2023 Episodic Other complications of (1 source) Other specified related conditions, second trimester; Translations: [Other specified related conditions, second trimester] Onset: 05-14-2023 Episodic Other female genital disorders (5 sources) Other specified noninflammatory disorders of vagina; Translations: [OTH SPEC NONINFLAMMATORY D/O VAGINA] Onset: 04-20-2022 Episodic Other and delivery including normal (20 sources) Encounter for routine follow-up; Translations: [Single live ] Onset: 01-17-2022 Episodic Other screening for suspected conditions (not mental disorders or infectious disease) (15 sources) Encounter for screening for malignant neoplasm of cervix; Translations: [Encounter for screening, unspecified] Onset: 11-09-2021 Episodic Ovarian cyst (1 source) Other ovarian cyst, right side; Translations: [OTHER OVARIAN CYST RIGHT SIDE] Onset: 11-15-2021 Episodic Poisoning by nonmedicinal substances (3 sources) Toxic effect of other specified gases, fumes and vapors, accidental (unintentional), initial encounter; Translations: [Toxic effect of other specified gases, fumes, or vapors] Onset: 02-13-2005 11-26-2019 Episodic Residual codes; unclassified (1 source) 8 weeks gestation of ; Translations: [8 WEEKS GESTATION OF ] Onset: 01-02-2022 Episodic Residual codes; unclassified (1 source) 19 weeks gestation of ; Translations: [19 weeks gestation of ] Onset: 05-14-2023 Episodic Residual codes; unclassified (1 source) Illness, unspecified; Translations: [Illness, unspecified] Onset: 04-23-2023 Episodic Spondylosis; intervertebral disc disorders; other back problems (9 sources) Disorder of sacrum; Translations: [Sacrococcygeal disorders, not elsewhere classified] Onset: 04-24-2019 04-24-2019 Episodic Results Test Name Value Interpretation Reference Range Facility CBC AND AUTO DIFFon 06-23-19 ABSOLUTE BASOPHIL 0.0 X10E9/L Normal 0.0-0.2 [facility] Comment on above: Performed By: #### C BCA #### [facility] ([id number]) [address], [address] [place] [address] ABSOLUTE NEUTROPHIL 7.0 X10E9/L High 1.5-6.6 [facility] Comment on above: Performed By: #### C BCA #### [facility] ([id number]) [address], [address] [place] [address] Basophils/100 WBC (Bld) 0.4 % Normal [facility] Comment on above: Performed By: #### C BCA #### [facility] ([id number]) [address], [address] [place] [address] Eosinophils (Bld) [#/Vol] 0.2 10*3/uL Normal 0.0-0.4 [facility] Comment on above: Performed By: #### C BCA #### [facility] ([id number]) [address], [address] [place] [address] Eosinophils/100 WBC (Bld) 1.9 % Normal [facility] Comment on above: Performed By: #### C BCA #### [facility] ([id number]) [address], [address] [place] [address] Erythrocyte distribution width (RBC) [Ratio] 13.9 % Normal 11.5-15.0 [facility] Comment on above: Performed By: #### C BCA #### [facility] ([id number]) [address], [address] [place] [address] Hematocrit (Bld) [Volume fraction] 35.5 % Normal 35-47 [facility] Comment on above: Performed By: #### C BCA #### [facility] ([id number]) [address], [address] [place] [address] Hemoglobin (Bld) [Mass/Vol] 11.6 g/dL Low 11.7-15.5 [facility] Comment on above: Performed By: #### C BCA #### [facility] ([id number]) [address], [address] [place] [address] Lymphocytes (Bld) [#/Vol] 1.7 10*3/uL Normal 1.0-3.5 [facility] Comment on above: Performed By: #### C BCA #### [facility] ([id number]) [address], [address] [place] [address] Lymphocytes/100 WBC (Bld) 18.1 % Normal [facility] Comment on above: Performed By: #### C BCA #### [facility] ([id number]) [address], [address] [place] [address] MCH (RBC) [Entitic mass] 26.1 pg Low 27-34 [facility] Comment on above: Performed By: #### C BCA #### [facility] ([id number]) [address], [address] [place] [address] MCHC (RBC) [Mass/Vol] 32.8 g/dL Normal 32-36 [facility] Comment on above: Performed By: #### C BCA #### [facility] ([id number]) [address], [address] [place] [address] MCV (RBC) [Entitic vol] 80 fL Normal 80-100 [facility] Comment on above: Performed By: #### C BCA #### [facility] ([id number]) [address], [address] [place] [address] Monocytes (Bld) [#/Vol] 0.5 10*3/uL Normal 0-0.9 [facility] Comment on above: Performed By: #### C BCA #### [facility] ([id number]) [address], [address] [place] [address] Monocytes/100 WBC (Bld) 5.3 % Normal [facility] Comment on above: Performed By: #### C BCA #### [facility] ([id number]) [address], [address] [place] [address] Neutrophils/100 WBC (Bld) 74.3 % Normal [facility] Comment on above: Performed By: #### C BCA #### [facility] ([id number]) [address], [address] [place] [address] Platelet mean volume (Bld) [Entitic vol] 8.0 fL Normal 7-12 [facility] Comment on above: Performed By: #### C BCA #### [facility] ([id number]) [address], [address] [place] [address] Platelets (Bld) [#/Vol] 259 10*3/uL Normal 150-450 [facility] Comment on above: Performed By: #### C BCA #### [facility] ([id number]) [address], [address] [place] [address] RBC COUNT 4.45 X10E12/L Normal 3.80-5.20 [facility] Comment on above: Performed By: #### C BCA #### [facility] ([id number]) [address], [address] [place] [address] WBC (Bld) [#/Vol] 9.5 10*3/uL Normal 4.0-11.0 [facility] Comment on above: Performed By: #### C BCA #### [facility] ([id number]) [address] [place] [address] Glucose 1 Hr post 50 g gluco se PO [Mass/Vol]on 06-23-2023 GLU 1H POST 50G LOAD 116 mg/dL Normal 65-139 [facility] Comment on above: Performed By: #### 1 504-0 #### [facility] ([id number]) [address] [place] [address] CBC AND AUTO DIFFon 06-07-19 ABSOLUTE BASOPHIL 0.0 X10E9/L Normal 0.0-0.2 [facility] Comment on above: Performed By: #### C BCA, CMP #### [facility] ([id number]) [address], [address] [place] [address] ABSOLUTE NEUTROPHIL 7.0 X10E9/L High 1.5-6.6 [facility] Comment on above: Performed By: #### C BCA, CMP #### [facility] ([id number]) [address] [place] [address] Basophils/100 WBC (Bld) 0.2 % Normal [facility] Comment on above: Performed By: #### C BCA, CMP #### [facility] ([id number]) [address], [address] [place] [address] Eosinophils (Bld) [#/Vol] 0.1 10*3/uL Normal 0.0-0.4 [facility] Comment on above: Performed By: #### C BCA, CMP #### [facility] ([id number]) [address] [place] [address] Eosinophils/100 WBC (Bld) 1.4 % Normal [facility] Comment on above: Performed By: #### C BCA, CMP #### [facility] ([id number]) [address], [address] [place] [address] Erythrocyte distribution width (RBC) [Ratio] 13.7 % Normal 11.5-15.0 [facility] Comment on above: Performed By: #### C BCA, CMP #### [facility] ([id number]) [address] [place] [address] Hematocrit (Bld) [Volume fraction] 32.6 % Low 35-47 [facility] Comment on above: Performed By: #### C BCA, CMP #### [facility] ([id number]) [address], [facility] [address] [place] [address] Hemoglobin (Bld) [Mass/Vol] 11.0 g/dL Low 11.7-15.5 [facility] Comment on above: Performed By: #### C BCA, CMP #### [facility] ([id number]) [address], [address] [place] [address] Lymphocytes (Bld) [#/Vol] 1.6 10*3/uL Normal 1.0-3.5 [facility] Comment on above: Performed By: #### C BCA, CMP #### [facility] ([id number]) [address] [place] [address] Lymphocytes/100 WBC (Bld) 17.6 % Normal [facility] Comment on above: Performed By: #### C BCA, CMP #### [facility] ([id number]) [address], [address] [place] [address] MCH (RBC) [Entitic mass] 26.5 pg Low 27-34 [facility] Comment on above: Performed By: #### C DARREN, CMP #### [facility] ([id number]) [address], [address] [place] [address] MCHC (RBC) [Mass/Vol] 33.6 g/dL Normal 32-36 [facility] Comment on above: Performed By: #### C BCA, CMP #### [facility] ([id number]) [address], [address] [place] [address] MCV (RBC) [Entitic vol] 79 fL Low 80-100 [facility] Comment on above: Performed By: #### C DARREN, CMP #### [facility] ([id number]) [address], [address] [place] [address] Monocytes (Bld) [#/Vol] 0.4 10*3/uL Normal 0-0.9 [facility] Comment on above: Performed By: #### C DARREN, CMP #### [facility] ([id number]) [address], [address] [place] [address] Monocytes/100 WBC (Bld) 4.5 % Normal [facility] Comment on above: Performed By: #### C DARREN, CMP #### [facility] ([id number]) [address], [address] [place] [address] Neutrophils/100 WBC (Bld) 76.3 % Normal [facility] Comment on above: Performed By: #### C BCA, CMP #### [facility] ([id number]) [address], [address] [place] [address] Platelet mean volume (Bld) [Entitic vol] 7.4 fL Normal 7-12 [facility] Comment on above: Performed By: #### C BCA, CMP #### [facility] ([id number]) [address], [address] [place] [address] Platelets (Bld) [#/Vol] 249 10*3/uL Normal 150-450 [facility] Comment on above: Performed By: #### C BCA, CMP #### [facility] ([id number]) [address], [address] [place] [address] RBC COUNT 4.14 X10E12/L Normal 3.80-5.20 [facility] Comment on above: Performed By: #### C BCA, CMP #### [facility] ([id number]) [address], [address] [place] [address] WBC (Bld) [#/Vol] 9.2 10*3/uL Normal 4.0-11.0 [facility] Comment on above: Performed By: #### C BCA, CMP #### [facility] ([id number]) [address], [address] [place] [address] COMPREHENSIVE METABOLIC PANE Jose 06-07-2023 Albumin [Mass/Vol] 3.2 g/dL Normal 3.2-5.3 [facility] Comment on above: Performed By: #### C BCA, CMP #### [facility] ([id number]) [address], [address] [place] [address] ALP [Catalytic activity/Vol] 90 U/L Normal 39-130 [facility] Comment on above: Performed By: #### C BCA, CMP #### [facility] ([id number]) [address], [address] [place] [address] ALT [Catalytic activity/Vol] 14 U/L Normal 0-31 [facility] Comment on above: Performed By: #### C BCA, CMP #### [facility] ([id number]) [address], [address] [place] [address] Anion gap [Moles/Vol] 8 mmol/L Normal 5-15 [facility] Comment on above: Performed By: #### C BCA, CMP #### [facility] ([id number]) [address], [address] [place] [address] AST [Catalytic activity/Vol] 15 U/L Normal 0-41 [facility] Comment on above: Performed By: #### C BCA, CMP #### [facility] ([id number]) [address], [address] [place] [address] Bilirubin [Mass/Vol] 0.2 mg/dL Low 0.3-1.2 [facility] Comment on above: Performed By: #### C BCA, CMP #### [facility] ([id number]) [address], [address] [place] [address] Calcium [Mass/Vol] 8.3 mg/dL Low 8.5-10.5 [facility] Comment on above: Performed By: #### C BCA, CMP #### [facility] ([id number]) [address], [address] [place] [address] Chloride [Moles/Vol] 105 mmol/L Normal 98-109 [facility] Comment on above: Performed By: #### C BCA, CMP #### [facility] ([id number]) [address], [address] [place] [address] CO2 [Moles/Vol] 22 mmol/L Normal 22-32 [facility] Comment on above: Performed By: #### C BCA, CMP #### [facility] ([id number]) [address], [address] [place] [address] Creatinine [Mass/Vol] 0.50 mg/dL Normal 0.40-1.00 [facility] Comment on above: Result Comment: METH OD TRACEABLE TO IDMS STANDARD Performed By: #### C BCA, CMP #### [facility] ([id number]) [address], [address] [place] [address] eGFR (CKD-EPI) NON-RACE DEPENDENT >90 Normal >59 [facility] Comment on above: Result Comment: Reported eGFR is based on the CKD-EPI 2020 equation that does not use a race coefficient. Performed By: #### C BCA, CMP #### [facility] ([id number]) [address], [address] [place] [address] Glucose [Mass/Vol] 82 mg/dL Normal 65-99 [facility] Comment on above: Performed By: #### C BCA, CMP #### [facility] ([id number]) [address] [place] [address] Potassium [Moles/Vol] 4.0 mmol/L Normal 3.5-5.0 [facility] Comment on above: Performed By: #### C BCA, CMP #### [facility] ([id number]) [address] [place] [address] Protein [Mass/Vol] 6.1 g/dL Normal 6.0-8.0 [facility] Comment on above: Performed By: #### C BCA, CMP #### [facility] ([id number]) [address], [address] [place] [address] Sodium [Moles/Vol] 135 mmol/L Normal 134-146 [facility] Comment on above: Performed By: #### C BCA, CMP #### [facility] ([id number]) [address] [place] [address] Urea nitrogen [Mass/Vol] 11 mg/dL Normal 5-23 [facility] Comment on above: Performed By: #### C BCA, CMP #### [facility] ([id number]) [address] [place] [address] Glucose Glucometer (BldC) [M ass/Vol]on 06-07-2023 Glucose [Mass/Vol] 92 mg/dL Normal 65-99 [facility] RESP PATHOGENS/TMHX-AuE-2ld 06-07-2023 Respiratory pathogens DNA and RNA panel SARAH+non-probe (Nph) SPECIMEN SOURCE NASO PHARYNX ADENOVIRUS Not detected (qualifier value) CORONAVIRUS 229E Not detected (qualifier value) CORONAVIRUS HKU1 Not detected (qualifier value) CORONAVIRUS NL63 Detected (qualifier value) CORONAVIRUS OC43 Not detected (qualifier value) HUMAN METAPNEUVIRUS Not detected (qualifier value) RHINO/ENTEROVIRUS Not detected (qualifier value) INFLUENZA A Not detected (qualifier value) INFLUENZA B Not detected (qualifier value) PARAINFLUENZA 1 Not detected (qualifier value) PARAINFLUENZA 2 Not detected (qualifier value) PARAINFLUENZA 3 Not detected (qualifier value) PARAINFLUENZA 4 Not detected (qualifier value) RESP SYNCYTIAL VIRUS Not detected (qualifier value) BORD PARAPERTUSSIS Not detected (qualifier value) BORDETELLA PERTUSSIS Not detected (qualifier value) CHLAM.PNEUMONIAE Not detected (qualifier value) MYCO. PNEUMONIAE Not detected (qualifier value) SARS CoV 2 Not detected (qualifier value) NOTE The BioFire Respiratory Panel 2.1 (RP2.1) is a multiplexed nucleic acid test intended for the simultaneous qualitative detection and differentiation of nucleic acid from multiple viral and bacterial respiratory organisms, including nucleic acid from Severe Acute Respiratory Syndrome Coronavirus 2 (SARS-CoV-2), in nasopharyngeal swabs obtained from individuals suspected of COVID-19 by their healthcare provider. Testing is limited to laboratories certified under the Clinical Laboratory Improvement Amendments of 1988 (CLIA), to perform high complexity or moderate complexity tests. SARS-CoV-2 RNA and nucleic acids from the other respiratory viral and bacterial organisms identified by this test are generally detectable in nasopharyngeal swabs during the acute phase of infection. The detection and identification of specific viral and bacterial nucleic acids from individuals exhibiting signs and/or symptoms of respiratory infection is indicative of the presence of the identified microorganism and aids in the diagnosis of respiratory infection if used in conjunction with other clinical and epidemiological information. Positive results are indicative of the presence of the identified organism, but do not rule out co-infection with other pathogens. The agent(s) detected by the BioFire RP2.1 may not be the definite cause of disease and clinical correlation with patient history and other diagnostic information is necessary to determine patient infection status. Negative results in the setting of a respiratory illness may be due to infection with pathogens not detected by this test, or lower respiratory tract infection that may not be detected by a nasopharyngeal specimen. Negative results do not preclude SARS-CoV-2 infection and should not be used as the sole basis for patient management decisions. Negative JERRELL-CoV-2 results must be combined with clinical observations, patient history and epidemiological information. Negative results for other organisms identified by the test may require additional laboratory testing when evaluating a patient with possible respiratory tract infection. Normal [facility] Comment on above: Performed By: #### 8 2159-5 #### [facility] ([id number]) [address] [place] [address] [address] [place] [address] URETHRITIS/DISCHARGE PLUS VA GINITIS (HTRX)on 05-09-2023 ATOPOBIUM VAGINAE 0 [facility] ATOPOBIUM VAGINAE Not detected [facility] BVAB 2,3 (BACTERIAL VAGINOSIS ASSOCIATED BACTERIA 2, 3); MOBILUNCUS SPP 0 [facility] BVAB 2,3 (BACTERIAL VAGINOSIS ASSOCIATED BACTERIA 2, 3); MOBILUNCUS SPP Not detected [facility] RADHA ALBICANS, PARAPSILOSIS, TROPICALIS 0 [facility] RADHA ALBICANS, PARAPSILOSIS, TROPICALIS Not detected [facility] RAD[facility] GLAB[facility]ATA Not detected [facility] RADHA KRUSEI 0 [facility] RADHA KRUSEI Not detected [facility] CHLAMYDIA TRACHOMATIS 0 [facility] CHLAMYDIA TRACHOMATIS Not detected [facility] GARDNERELLA VAGINALIS 0 [facility] GARDNERELLA VAGINALIS Not detected [facility] MEGASPHAERA (TYPES 1, 2) 0 [facility] MEGASPHAERA (TYPES 1, 2) Not detected [facility] MYCOPLASMA GENITALIUM 0 [facility] MYCOPLASMA GENITALIUM Not detected [facility] NEISSERIA GONORRHOEAE 0 [facility] NEISSERIA GONORRHOEAE Not detected [facility] TRICHOMONAS VAGINALIS 0 [facility] TRICHOMONAS VAGINALIS Not detected [facility] VZV IgG IA Ql (S)on 04-23-19 24 VARICELLA IgG 0.7 AI Normal <0.9 [facility] Comment on above: Result Comment: Interpretation-------- <0.9 Negative 0.9 - 1.0 Equivocal >1.0 Positive Performed By: #### 1 5410-4 #### [facility] ([id number]) [address] [place] [address], [address] [place] [address] Free Cell DNAOrdered B y: Gracy Rodriguez on 03-15-2023 [facility] CBC AUTO DIFFon 08-04-2022 BASO # 0.0 103/ul Normal 0.0-0.[address] [facility] Comment on above: Performed By: #### C BC #### [facility] [address] [place] [address] Dr. Yassine Zarate Basophils/100 WBC (Bld) 0.3 % Normal 0.2-2.[address] [facility] Comment on above: Performed By: #### C BC #### [facility] [address] [place] [address] Dr. Yassine Zarate EO # 0.1 103/ul Normal 0.0-0.[address] [facility] Comment on above: Performed By: #### C BC #### [facility] [address] [place] [address] Dr. Yassine Zarate Eosinophils/100 WBC (Bld) 0.8 % Critically low 0.9-7.0 [facility] Comment on above: Performed By: #### C BC #### [facility] [address] [place] [address] Dr. Yassine Zarate Erythrocyte distribution width (RBC) [Ratio] 14.1 % Normal 11.0-15.[address] [facility] Comment on above: Performed By: #### C BC #### [facility] [address] [place] [address] Dr. Yassine Zarate Hematocrit (Bld) [Volume fraction] 31.8 % Critically low 36.0-48.[address] [facility] Comment on above: Performed By: #### C BC #### [facility] [address] [address] [address] Yassine Zarate Hemoglobin (Bld) [Mass/Vol] 10.3 g/dL Critically low 12.0-16.[address] [facility] Comment on above: Performed By: #### C BC #### [facility] [address] [address] [address] Yassine Zarate IG # 0.10 10e3/ul Critically high 0.00-0.03 [facility] Comment on above: Performed By: #### C BC #### [facility] [address] [address] [address] Yassine Zarate IG % 0.8 % Critically high 0.0-0.5 [facility] Comment on above: Performed By: #### C BC #### [facility] [address] [address] [address] Yassine Zarate LYMPH # 1.9 103/ul Normal 1.2-3.8 [facility] Comment on above: Performed By: #### C BC #### [facility] [address] [address] [address] Yassine Zarate Lymphocytes/100 WBC (Bld) 14.1 % Critically low 20.5-60.[address] [facility] Comment on above: Performed By: #### C BC #### [facility] [address] [place] [address] Dr. Yassine Zarate MANUAL DIFF REQ NO Normal [facility] Comment on above: Performed By: #### C BC #### [facility] [address] [address] [address] Yassine Zarate MCH (RBC) [Entitic mass] 25.6 pg Critically low 26.7-34.0 [facility] Comment on above: Performed By: #### C BC #### [facility] [address] [address] [address] Yassine Zarate MCHC (RBC) [Mass/Vol] 32.4 g/dL Normal 29.9-35.2 [facility] Comment on above: Performed By: #### C BC #### [facility] [id number] Yassine Zarate MCV (RBC) [Entitic vol] 79.1 fL Critically low 81.0-99.[address] [facility] Comment on above: Performed By: #### C BC #### [facility] [address] [address] [address] Yassine Zarate MONO # 0.9 103/ul Critically high 0.3-0.8 [facility] Comment on above: Performed By: #### C BC #### [facility] [address] [address] [address] Yassine Zarate Monocytes/100 WBC (Bld) 6.6 % Normal 1.7-12.[address] [facility] Comment on above: Performed By: #### C BC #### [facility] [address] [place] [address] Dr. Yassine Zarate NEUT # 10.3 103/ul Critically high 1.4-6.5 [facility] Comment on above: Performed By: #### C BC #### [facility] [address] [place] [address] Dr. Yassine Zarate Neutrophils/100 WBC (Bld) 77.4 % Critically high 43.0-75.[address] [facility] Comment on above: Performed By: #### C BC #### [facility] [address] [place] [address] Dr. Yassine Zarate Platelet mean volume (Bld) [Entitic vol] 9.6 fL Normal 9.5-13.5 [facility] Comment on above: Performed By: #### C BC #### [facility] [address] [place] [address] Dr. Yassine Zarate PLT 251 103/ul Normal 150-450 [facility] Comment on above: Performed By: #### C BC #### [facility] [address] [place] [address] Dr. Yassine Zarate RBC 4.02 106/ul Critically low 4.20-5.40 [facility] Comment on above: Performed By: #### C BC #### [facility] [address] [address] [address] Yassine Zarate WBC 13.3 103/ul Critically high 4.0-11.0 [facility] Comment on above: Performed By: #### C BC #### [facility] [address] [address] [address] Yassine Zarate CBC AUTO DIFFon 08-02-2022 BASO # 0.1 103/ul Normal 0.0-0.1 [facility] Comment on above: Performed By: #### C BC #### [facility] [address] [address] [address] Ysasine Zarate Basophils/100 WBC (Bld) 0.5 % Normal 0.2-2.0 [facility] Comment on above: Performed By: #### C BC #### [facility] [address] [address] [address] Yassine Zarate EO # 0.1 103/ul Normal 0.0-0.7 [facility] Comment on above: Performed By: #### C BC #### [facility] [address] [address] [address] Yassine Zarate Eosinophils/100 WBC (Bld) 1.1 % Normal 0.9-7.0 [facility] Comment on above: Performed By: #### C BC #### [facility] [address] [place] [address] Dr. Yassine Zarate Erythrocyte distribution width (RBC) [Ratio] 13.9 % Normal 11.0-15.0 [facility] Comment on above: Performed By: #### C BC #### [facility] [address] [place] [address] Dr. Yassine Zarate Hematocrit (Bld) [Volume fraction] 34.8 % Critically low 36.0-48.0 [facility] Comment on above: Performed By: #### C BC #### [facility] [address] [place] [address] Dr. Yassine Zarate Hemoglobin (Bld) [Mass/Vol] 11.5 g/dL Critically low 12.0-16.0 [facility] Comment on above: Performed By: #### C BC #### [facility] [address] [address] [address] Yassine Zarate IG # 0.15 10e3/ul Critically high 0.00-0.03 [facility] Comment on above: Performed By: #### C BC #### [facility] [address] [address] [address] Yassine Zarate IG % 1.3 % Critically high 0.0-0.5 [facility] Comment on above: Performed By: #### C BC #### [facility] [address] [place] [address] Dr. Yassine Zarate LYMPH # 2.5 103/ul Normal 1.2-3.[address] [facility] Comment on above: Performed By: #### C BC #### [facility] [address] [place] [address] Dr. Yassine Zarate Lymphocytes/100 WBC (Bld) 20.6 % Normal 20.5-60.[address] [facility] Comment on above: Performed By: #### C BC #### [facility] [address] [place] [address] Dr. Yassine Zarate MANUAL DIFF REQ NO Normal [facility] Comment on above: Performed By: #### C BC #### [facility] [address] [place] [address] Dr. Yassine Zarate MCH (RBC) [Entitic mass] 25.6 pg Critically low 26.7-34.[address] [facility] Comment on above: Performed By: #### C BC #### [facility] [address] [address] [address] Yassine Zarate MCHC (RBC) [Mass/Vol] 33.0 g/dL Normal 29.9-35.[address] [facility] Comment on above: Performed By: #### C BC #### [facility] [address] [place] [address] Dr. Yassine Zarate MCV (RBC) [Entitic vol] 77.5 fL Critically low 81.0-99.[address] [facility] Comment on above: Performed By: #### C BC #### [facility] [address] [place] [address] Dr. Yassine Zarate MONO # 0.7 103/ul Normal 0.3-0.[address] [facility] Comment on above: Performed By: #### C BC #### [facility] [address] [address] [address] Yassine Zarate Monocytes/100 WBC (Bld) 6.1 % Normal 1.7-12.[address] [facility] Comment on above: Performed By: #### C BC #### [facility] [address] [address] [address] Yassine Zarate NEUT # 8.4 103/ul Critically high 1.4-6.5 [facility] Comment on above: Performed By: #### C BC #### [facility] [address] [place] [address] Dr. Yassine Zarate Neutrophils/100 WBC (Bld) 70.4 % Normal 43.0-75.[address] [facility] Comment on above: Performed By: #### C BC #### [facility] [address] [place] [address] Dr. Yassine Zarate Platelet mean volume (Bld) [Entitic vol] 9.6 fL Normal 9.5-13.5 [facility] Comment on above: Performed By: #### C BC #### [facility] [address] [place] [address] Dr. Yassine Zarate PLT 294 103/ul Normal 150-450 [facility] Comment on above: Performed By: #### C BC #### [facility] [address] [address] [address] Yassine Zarate RBC 4.49 106/ul Normal 4.20-5.40 [facility] Comment on above: Performed By: #### C BC #### [facility] [address] [place] [address] Dr. Yassine Zarate WBC 11.9 103/ul Critically high 4.0-11.0 [facility] Comment on above: Performed By: #### C BC #### [facility] [address] [place] [address] Dr. Yassine Zarate DRUG SCREEN RAPID (URINE)on 08-02-2022 AMP Negative Normal NEGATIVE [facility] Comment on above: Performed By: #### D RUGRPD #### [facility] [address] [place] [address] Dr. Yassine Zarate BAR Negative Normal NEGATIVE [facility] Comment on above: Performed By: #### D RUGRPD #### [facility] [address] [place] [address] Dr. Yassine Zarate BUP Negative Normal NEGATIVE [facility] Comment on above: Performed By: #### D RUGRPD #### [facility] [address] [place] [address] Dr. Yassine Zarate BZO Negative Normal NEGATIVE [facility] Comment on above: Performed By: #### D RUGRPD #### [facility] [address] [place] [address] Dr. Yassine Zarate RACIEL Negative Normal NEGATIVE [facility] Comment on above: Performed By: #### D RUGRPD #### [facility] [address] [place] [address] Dr. aYssine Zarate CUT-OFFS SEE BELOW Normal [facility] Comment on above: Result Comment: AMP [...] ng/mL Performed By: #### D RUGRPD #### [facility] [address] [place] [address] Dr. Yassine Zarate DRUG CUT HEADER DRUG CLASS TEST SYSTEM CUT-OFF CONCENTRATIONS ARE FOLLOWS: Normal [facility] Comment on above: Performed By: #### D RUGRPD #### [facility] [address] [place] [address] Dr. Yassine Zarate mAMP Negative Normal NEGATIVE [facility] Comment on above: Performed By: #### D RUGRPD #### [facility] [address] [place] [address] Dr. Yassine Zarate MTD Negative Normal NEGATIVE [facility] Comment on above: Performed By: #### D RUGRPD #### [facility] [address] [place] [address] Dr. Yassine Zarate OPI Negative Normal NEGATIVE [facility] Comment on above: Performed By: #### D RUGRPD #### [facility] [address] [place] [address] Dr. Yassine Zarate OXY Negative Normal NEGATIVE [facility] Comment on above: Performed By: #### D RUGRPD #### [facility] [address] [place] [address] Dr. Yassine Zarate PCP Negative Normal NEGATIVE [facility] Comment on above: Performed By: #### D RUGRPD #### [facility] [address] [place] [address] Dr. Yassine Zarate PPX Negative Normal NEGATIVE [facility] [facility] Comment on above: Performed By: #### D RUGRPD #### [facility] [address] [place] [address] Dr. Yassine Zarate TCA Negative Normal NEGATIVE [facility] Comment on above: Performed By: #### D RUGRPD #### [facility] [address] [place] [address] Dr. Yassine Zarate THC Negative Normal NEGATIVE [facility] Comment on above: Performed By: #### D RUGRPD #### [facility] [address] [place] [address] Dr. Yassine Zarate TYPE AND SCREENon 08-02-2022 TYPE AND SCREEN Negative Normal [facility] Comment on above: Performed By: #### C BC #### [facility] [address] [place] [address] Dr. Yassine Zarate GROUP B STREP CULTUREon 04-0 S. agalactiae Ag Ql (Unsp spec) Isolate [...] S F Tetracycline >=16 R F Normal [facility] Comment on above: Performed By: #### C BC #### [facility] [address] [place] [address] [address] Yassine Zarate US PREG GROWTHon 06-15-2022 [...] above. Electronically authenticated by: VILMA COBURN Date: 2022-06-15 15:[address] [facility] PAP ACOG PANEL 2: 23 to 31on 04-25-2022 . . Normal [facility] Comment on above: Performed By: #### C BC #### [facility] [address] [place] [address] [address] Yassine Zarate Age Gdln ACOG Testing 23- [facility] Comment on above: Performed By: #### C BC #### [facility] [address] [address] [address] Yassine Zarate DIAGNOSIS: Comment Normal [facility] Comment on above: Result Comment: NEGA TIVE FOR INTRAEPITHELIAL LESION OR MALIGNANCY. CELLULAR CHANGES ASSOCIATED WITH INFLAMMATION ARE PRESENT. Performed By: #### C BC #### [facility] [address] [place] [address] Dr. Yassine Zarate Methodology: Comment Normal [facility] Comment on above: Result Comment: This liquid based ThinPrep(R) pap test was screened with the use of an image guided system. Performed By: #### C BC #### [facility] [address] [place] [address] Dr. Yassine Zarate Note: Comment Normal [facility] Comment on above: Result Comment: The Pap smear is a screening test designed to aid in the detection of premalignant and malignant conditions of the uterine cervix. It is not a diagnostic procedure and should not be used as the sole means of detecting cervical cancer. Both false-positive and false-negative reports do occur. . Performed By: #### C BC #### [facility] [address] [place] [address] Dr. Yassine Zarate Performed by: Comment Normal [facility] Comment on above: Result Comment: Marko Christensen, [employer]illing Machine Operator (ASCP) Performed By: #### C BC #### [facility] [address] [place] [address] Dr. Yassine Zarate Reflex Criteria: Comment Normal [facility] Comment on above: Result Comment: The HPV DNA reflex criteria were not met with this specimen result therefore, no HPV testing was performed. . Performed By: #### C BC #### [facility] [address] [place] [address] Dr. Yassine Zarate Specimen adequacy: Comment Normal [facility] Comment on above: Result Comment: Sati sfactory for evaluation. No endocervical component is identified. Performed By: #### C BC #### [facility] [address] [place] [address] Dr. Yassine Zarate CHLAMYDIA/GONOCOCCUS SARAH (SW AB/URINE/PAPon 04-24-2022 Chlamydia trachomatis, SARAH Negative Normal Negative [facility] Comment on above: Performed By: #### C BC #### [facility] [address] [place] [address] Dr. Yassine Zarate Neisseria gonorrhoeae, SARAH Negative Normal Negative [facility] Comment on above: Performed By: #### C BC #### [facility] [address] [place] [address] Dr. Yassine Zarate VAGINITIS/VAGINOSIS DNA PROB Emmanuel 04-22-2022 Radha species Positive Abnormal Negative [facility] Comment on above: Performed By: #### V AGINT #### [facility] [address] [place] [address] Dr. Yassine Zarate Gardnerella vaginalis Negative Normal Negative [facility] Comment on above: Performed By: #### V AGINT #### [facility] [address] [place] [address] Dr. Yassine Zarate Trichomonas vaginalis Negative Normal Negative [facility] Comment on above: Performed By: #### V AGINT #### [facility] [address] [place] [address] Dr. Yassine Zarate CBC AUTO DIFFon 04-20-2022 BASO # 0.0 103/ul Normal 0.0-0.[address] [facility] Comment on above: Performed By: #### C BC #### [facility] [address] [place] [address] Dr. Yassine Zarate Basophils/100 WBC (Bld) 0.4 % Normal 0.2-2.[address] [facility] Comment on above: Performed By: #### C BC #### [facility] [address] [place] [address] Dr. Yassine Zarate EO # 0.1 103/ul Normal 0.0-0.7 [facility] Comment on above: Performed By: #### C BC #### [facility] [address] [place] [address] Dr. Yassine Zarate Eosinophils/100 WBC (Bld) 1.0 % Normal 0.9-7.0 [facility] Comment on above: Performed By: #### C BC #### [facility] [address] [place] [address] Dr. Yassine Zarate Erythrocyte distribution width (RBC) [Ratio] 12.3 % Normal 11.0-15.[address] [facility] Comment on above: Performed By: #### C BC #### [facility] [address] [place] [address] Dr. Yassine Zarate Hematocrit (Bld) [Volume fraction] 34.8 % Critically low 36.0-48.[address] [facility] Comment on above: Performed By: #### C BC #### [facility] [address] [place] [address] Dr. Yassine Zarate Hemoglobin (Bld) [Mass/Vol] 11.4 g/dL Critically low 12.0-16.[address] [facility] Comment on above: Performed By: #### C BC #### [facility] [address] [place] [address] Dr. Yassine Zarate IG # 0.07 10e3/ul Critically high 0.00-0.03 [facility] Comment on above: Performed By: #### C BC #### [facility] [address] [place] [address] Dr. Yassine Zarate IG % 0.8 % Critically high 0.0-0.5 [facility] Comment on above: Performed By: #### C BC #### [facility] [address] [place] [address] Dr. Yassine Zarate LYMPH # 1.9 103/ul Normal 1.2-3.8 [facility] Comment on above: Performed By: #### C BC #### [facility] [address] [place] [address] Dr. Yassine Zarate Lymphocytes/100 WBC (Bld) 20.6 % Normal 20.5-60.[address] [facility] Comment on above: Performed By: #### C BC #### [facility] [address] [place] [address] Dr. Yassine Zarate MANUAL DIFF REQ NO Normal [facility] Comment on above: Performed By: #### C BC #### [facility] [address] [place] [address] Dr. Yassine Zarate MCH (RBC) [Entitic mass] 26.3 pg Critically low 26.7-34.0 [facility] Comment on above: Performed By: #### C BC #### [facility] [address] [address] [address] Yassine Zarate MCHC (RBC) [Mass/Vol] 32.8 g/dL Normal 29.9-35.2 [facility] Comment on above: Performed By: #### C BC #### [facility] [address] [place] [address] Dr. Yassine Zarate MCV (RBC) [Entitic vol] 80.2 fL Critically low 81.0-99.0 [facility] Comment on above: Performed By: #### C BC #### [facility] [address] [place] [address] Dr. Yassine Zarate MONO # 0.5 103/ul Normal 0.3-0.8 [facility] Comment on above: Performed By: #### C BC #### [facility] [address] [place] [address] Dr. Yassine Zarate Monocytes/100 WBC (Bld) 5.2 % Normal 1.7-12.0 [facility] Comment on above: Performed By: #### C BC #### [facility] [address] [place] [address] Dr. Yassine Zarate NEUT # 6.5 103/ul Normal 1.4-6.5 [facility] Comment on above: Performed By: #### C BC #### [facility] [address] [place] [address] Dr. Yassine Zarate Neutrophils/100 WBC (Bld) 72.0 % Normal 43.0-75.0 [facility] Comment on above: Performed By: #### C BC #### [facility] [address] [place] [address] Dr. Yassine Zarate Platelet mean volume (Bld) [Entitic vol] 9.2 fL Critically low 9.5-13.5 [facility] Comment on above: Performed By: #### C BC #### [facility] [address] [address] [address] Yassine Zarate PLT 270 103/ul Normal 150-[address] [facility] Comment on above: Performed By: #### C BC #### [facility] [address] [address] [address] Yassine Zarate RBC 4.34 106/ul Normal 4.20-5.[address] [facility] Comment on above: Performed By: #### C BC #### [facility] [address] [address] [address] Yassine Zarate WBC 9.1 103/ul Normal 4.0-11.[address] [facility] Comment on above: Performed By: #### C BC #### [facility] [address] [address] [address] Yassine Zarate GLUCOSE - 1HRon 04-20-2022 Glucose [Mass/Vol] 97 mg/dL Normal 74-106 [facility] Comment on above: Performed By: #### C BC #### [facility] [address] [address] [address] Yassine Zarate AFP MATERNAL FOR SPINA BIFID Aon 03-23-2022 AFP MoM 1.[address] [facility] Comment on above: Performed By: #### A FPMAT #### [facility] [address] [address] [address] Yassine Zarate AFP Value 69.6 ng/mL Normal [facility] Comment on above: Performed By: #### A FPMAT #### [facility] [address] [address] [address] Yassine Zarate AFP, Serum for Spina Bifida Report Normal [facility] Comment on above: Performed By: #### A FPMAT #### [facility] [address] [address] [address] Yassine Zarate Comment Comment Normal [facility] Comment on above: Result Comment: Shakila Dickinson, Ph.D., [facility] Director . References: Available Upon Request. . Multiples Of Median Cutoffs For AFP Elevations Guzman 2.5 Black 2.8 IDD 2.0 Twins 4.5 Abbreviation Definitions IDD - Insulin Dep Diabetes OSBR - Open Spina Bifida Risk . For further inquiries contact [facility] at [phone]. . This test was developed and its performance characteristics determined by [employer] It has not been cleared or approved by the Food and Drug Administration. Performed By: #### A FPMAT #### [facility] [address] [place] [address] Dr. Yassine Larsen Age Collection Date 20.[address] [facility] Comment on above: Performed By: #### A FPMAT #### [facility] [address] [place] [address] Dr. Yassine Zarate Gestat, Age Based on THA [facility] Comment on above: Result Comment: 07/2022 Recalculations are not recommended when gestational dating by LMP and ultrasound are within 10 days. Performed By: #### A FPMAT #### [facility] [address] [place] [address] Dr. Yassine Zarate Insulin Dep Diabetes No Normal [facility] Comment on above: Performed By: #### A FPMAT #### [facility] [address] [place] [address] Dr. Yassine Zarate Interpretation Comment Normal [facility] Comment on above: Result Comment: Inte rpretation: [...] Customer Services to discuss available options. The [employer] recommends amniocentesis be offered to women age 35 and older. Performed By: #### A FPMAT #### [facility] [address] [place] [address] Dr. Yassine Zarate [age] Normal [facility] Comment on above: Performed By: #### A FPMAT #### [facility] [address] [place] [address] Dr. Yassine Zarate Multiple Gestation No Normal [facility] Comment on above: Performed By: #### A FPMAT #### [facility] [address] [address] [address] Yassine Zarate OSBR Risk 1 IN 6301 Normal [facility] Comment on above: Performed By: #### A FPMAT #### [facility] [address] [address] [address] Yassine Zarate PDF . Normal [facility] Comment on above: Performed By: #### A FPMAT #### [facility] [address] [address] [address] Yassine Zarate Race [facility] Comment on above: Performed By: #### A FPMAT #### [facility] [address] [place] [address] Dr. Yassine Zarate Test Results: Negative [facility] Comment on above: Performed By: #### A FPMAT #### [facility] [address] [place] [address] Dr. Yassine Zarate US PREG ANATOMY SINGLEon [...] above. Electronically authenticated by: VILMA IRISH Date: 2022-03-21 20:38 Normal [facility] HEP B SURFACE ANTIGEN SCREEN on 01-18-2022 HBsAg Screen Negative Normal Negative [facility] Comment on above: Performed By: #### H BSANS #### [facility] [address] [address] [address] Yassine Zarate HEPATITIS C VIRUS AB W/ REFL EX QUANTon 01-18-2022 HCV AB <0.1 Normal 0.0-0.[address] [facility] Comment on above: Performed By: #### H CVPCRR #### [facility] [address] [address] [address] Yassine Zarate Interpretation: Comment Normal [facility] Comment on above: Result Comment: Nega tive Not infected with HCV, unless recent infection is suspected or other evidence exists to indicate HCV infection. Performed By: #### H CVPCRR #### [facility] [address] [address] [address] Yassine Zarate HIV 1 AND 2 WITH REFLEXon HIV Screen 4th Generation wRfx Non-Reactive Normal Non Reactive [facility] Comment on above: Result Comment: HIV Negative HIV-1/HIV-2 antibodies and HIV-1 p24 antigen were NOT detected. There is no laboratory evidence of HIV infection. Performed By: #### C BC #### [facility] [address] [address] [address] Yassine Zarate RPR QUANTon 01-18-2022 Rapid Plasma Reagin, Quant Non-Reactive Normal NonRea<1:[address] [facility] Comment on above: Result Comment: Plea se Note: This test does not meet current guidelines for screening and diagnosis of syphilis. This test is intended for following treatment response in patients being treated for syphilis infection. To screen for syphilis infection, a reflex cascade that includes both RPR and a treponema-specific assay should be utilized, such as Treponema pallidum (Syphilis) Screening Dante (968150) or Rapid Plasma Reagin (RPR) Test With Reflex to Quantitative RPR and Confirmatory Treponema pallidum Antibodies (525026). Performed By: #### C BC #### [facility] [address] [place] [address] Dr. Yassine Zarate RUBELLA AB IGGon 01-18-2022 Rubella Antibodies, IgG 1.96 index Normal Immune >0.[address] [facility] Comment on above: Result Comment: Non- immune <0.90 Equivocal 0.90 - 0.99 Immune >0.99 Performed By: #### C BC #### [facility] [address] [place] [address] Dr. Yassine Zarate CBC AUTO DIFFon 01-17-2022 BASO # 0.0 103/ul Normal 0.0-0.[address] [facility] Comment on above: Performed By: #### C BC #### [facility] [address] [place] [address] Dr. Ysasine Zarate Basophils/100 WBC (Bld) 0.4 % Normal 0.2-2.[address] [facility] Comment on above: Performed By: #### C BC #### [facility] [address] [place] [address] Dr. Yassine Zarate EO # 0.1 103/ul Normal 0.0-0.7 [facility] Comment on above: Performed By: #### C BC #### [facility] [address] [place] [address] Dr. Yassine Zarate Eosinophils/100 WBC (Bld) 1.4 % Normal 0.9-7.0 [facility] Comment on above: Performed By: #### C BC #### [facility] [address] [place] [address] Dr. Yassine Zarate Erythrocyte distribution width (RBC) [Ratio] 12.2 % Normal 11.0-15.[address] [facility] Comment on above: Performed By: #### C BC #### [facility] [address] [place] [address] Dr. Yassine Zarate Hematocrit (Bld) [Volume fraction] 36.9 % Normal 36.0-48.[address] [facility] Comment on above: Performed By: #### C BC #### [facility] [address] [place] [address] Dr. Yassine Zarate Hemoglobin (Bld) [Mass/Vol] 12.1 g/dL Normal 12.0-16.0 [facility] Comment on above: Performed By: #### C BC #### [facility] [address] [place] [address] Dr. Yassine Zarate IG # 0.03 10e3/ul Normal 0.00-0.[address] [facility] Comment on above: Performed By: #### C BC #### [facility] [address] [place] [address] Dr. Yassine Zarate IG % 0.4 % Normal 0.0-0.[address] [facility] Comment on above: Performed By: #### C BC #### [facility] [address] [place] [address] Dr. Yassine Zarate LYMPH # 2.0 103/ul Normal 1.2-3.8 [facility] Comment on above: Performed By: #### C BC #### [facility] [address] [place] [address] Dr. Yassine aZrate Lymphocytes/100 WBC (Bld) 23.8 % Normal 20.5-60.[address] [facility] Comment on above: Performed By: #### C BC #### [facility] [address] [place] [address] Dr. Yassine Zarate MANUAL DIFF REQ NO Normal [facility] Comment on above: Performed By: #### C BC #### [facility] [address] [place] [address] Dr. Yassine Zarate MCH (RBC) [Entitic mass] 26.9 pg Normal 26.7-34.[address] [facility] Comment on above: Performed By: #### C BC #### [facility] [address] [place] [address] Dr. Yassine Zarate MCHC (RBC) [Mass/Vol] 32.8 g/dL Normal 29.9-35.[address] [facility] Comment on above: Performed By: #### C BC #### [facility] [address] [place] [address] Dr. Yassine Zarate MCV (RBC) [Entitic vol] 82.0 fL Normal 81.0-99.[address] [facility] Comment on above: Performed By: #### C BC #### [facility] [address] [place] [address] Dr. Yassine Zarate MONO # 0.4 103/ul Normal 0.3-0.[address] [facility] Comment on above: Performed By: #### C BC #### [facility] [address] [place] [address] Dr. Yassine Zarate Monocytes/100 WBC (Bld) 4.8 % Normal 1.7-12.[address] [facility] Comment on above: Performed By: #### C BC #### [facility] [address] [place] [address] Dr. Yassine Zarate NEUT # 5.9 103/ul Normal 1.4-6.[address] [facility] Comment on above: Performed By: #### C BC #### [facility] [address] [place] [address] Dr. Yassine Zarate Neutrophils/100 WBC (Bld) 69.2 % Normal 43.0-75.[address] [facility] Comment on above: Performed By: #### C BC #### [facility] [address] [place] [address] Dr. Yassine Zarate Platelet mean volume (Bld) [Entitic vol] 9.0 fL Critically low 9.5-13.5 [facility] Comment on above: Performed By: #### C BC #### [facility] [address] [place] [address] Dr. Yassine Zarate PLT 283 103/ul Normal 150-450 [facility] Comment on above: Performed By: #### C BC #### [facility] [address] [place] [address] Dr. Yassine Zarate RBC 4.50 106/ul Normal 4.20-5.[address] [facility] Comment on above: Performed By: #### C BC #### [facility] [address] [place] [address] Dr. Yassine Zarate WBC 8.5 103/ul Normal 4.0-11.[address] [facility] Comment on above: Performed By: #### C BC #### [facility] [address] [place] [address] Dr. Yassine Zarate CULTURE URINEon 01-17-2022 CULTURE URINE Culture Observations : LIGHT GROWTH OF MIXED GENITAL JACQUELYN. NO POTENTIAL PATHOGENS SEEN. Normal [facility] Comment on above: Performed By: #### U RCX #### [facility] [address] [place] [address] Dr. Yassine Zarate GLYCOHEMOGLOBIN A1Con 2021 ADA RECOMMENDATION SEE BELOW Normal [facility] Comment on above: Result Comment: ADA RECOMMENDED LIMIT 4.0 - 6.0 ADA THERAPEUTIC TARGET < 7.0 ACTION SUGGESTED > 7.0 Performed By: #### C BC #### [facility] [address] [place] [address] Dr. Yassine Zarate Glucose [Mass/Vol] 108 mg/dL Normal [facility] Comment on above: Performed By: #### C BC #### [facility] [address] [place] [address] Dr. Yassine Zarate HbA1c (Bld) [Mass fraction] 5.4 % Normal 4.5-6.[address] [facility] Comment on above: Performed By: #### C BC #### [facility] [address] [place] [address] Dr. Yassine Zarate JENNIFER BOX TEST PT SEND OUTo n 01-17-2022 SENT TO REF LAB 01/17/2022 Normal [facility] Comment on above: Performed By: #### C BC #### [facility] [address] [place] [address] Dr. Yassine Zarate TYPE AND SCREENon 01-17-2022 TYPE AND SCREEN Negative Normal [facility] Comment on above: Performed By: #### T NS #### [facility] [address] [place], [place] [address] Dr. Yassine Zarate US PREG TVon 12-29-2021 [...] VILMA COBURN Date: 2021-12-29 16:26 Normal [facility] US PELVIS AND TRANSVAGon US PELVIS [...] BEBO JORGE Date: 2021-11-13 12:05 Normal [facility] HEPATITIS C AB W/REFL TO HCV RNA, QN, PCRon 11-11-2021 HEPATITIS C ANTIBODY Non-Reactive Normal NON-REACTIVE [facility] Comment on above: Performed By: #### 8 472 #### [facility] [address], [address] [place] [id number] Forward Air Controller/Air Officer: Holden Mathur MD INDEX 0.04 Normal <1.00 [facility] Comment on above: Result Comment: HCV antibody was non-reactive. There is no laboratory evidence of HCV infection. In most cases, no further action is required. However, if recent HCV exposure is suspected, a test for HCV RNA (test code 62600) is suggested. For additional information please refer to http://education.[employer]/faq/DSB32g0 (This link is being provided for informational/ educational purposes only.) Performed By: #### 8 472 #### [facility] [address] [facility], [address] [place] [address] Forward Air Controller/Air Officer: Holden Mathur MD LIPID PROFILEon 11-09-2021 CHOL-HDL RATIO NORM SEE BELOW Normal [facility] Comment on above: Result Comment: 3.3 - 4.4 LOW RISK 4.4 - 7.1 AVERAGE RISK 7.1 - 11.0 MODERATE RISK >11.0 HIGH RISK Performed By: #### C BC #### [facility] [address] [place] [address] Dr. Yassine Zarate Cholesterol [Mass/Vol] 176 mg/dL Normal <=[address] [facility] Comment on above: Performed By: #### C BC #### [facility] [address] [place] [address] Dr. Yassine Zarate Cholesterol in HDL [Mass/Vol] 58 mg/dL Normal 40-[address] [facility] Comment on above: Performed By: #### C BC #### [facility] [address] [place] [address] Dr. Yassine Zarate Cholesterol in LDL [Mass/Vol] 98.4 mg/dL Normal [facility] Comment on above: Performed By: #### C BC #### [facility] [address] [place] [address] Dr. Yassine Zarate Cholesterol.total/Ch olesterol in HDL [Mass ratio] 3.0 {ratio} Normal [facility] Comment on above: Performed By: #### C BC #### [facility] [address] [place] [address] Dr. Yassine Zarate HDL NORMAL > or = 60 mg/dl - LO W CARDIOVASCULAR RISK <40 mg/dl - HIGH CARDIOVASCULAR RISK Normal [facility] Comment on above: Performed By: #### C BC #### [facility] [address] [address] [address] Yassine Zarate LDL CALC NORMAL SEE BELOW Normal [facility] Comment on above: Result Comment: <100 mg/dl OPTIMAL 100 - 129 mg/dl NEAR OR ABOVE OPTIMAL 130 - 159 mg/dl BORDERLINE HIGH 160 - 189 mg/dl HIGH >190 mg/dl VERY HIGH Performed By: #### C BC #### [facility] [address] [address] [address] Yassine Zarate Triglyceride [Mass/Vol] 98 mg/dL Normal <=[address] [facility] Comment on above: Performed By: #### C BC #### [facility] [address] [place] [address] Dr. Yassine Zarate VLDL CALC 19.6 mg/dL Normal [facility] Comment on above: Performed By: #### C BC #### [facility] [address] [place] [address] Dr. Yassine Zarate PROF 14(COMP METB)on 022 Albumin [Mass/Vol] 3.8 g/dL Normal 3.4-5.0 [facility] Comment on above: Performed By: #### C BC #### [facility] [address] [place] [address] Dr. Yassine Zarate Albumin/Globulin [Mass ratio] 1.1 {ratio} Normal [facility] Comment on above: Performed By: #### C BC #### [facility] [address] [place] [address] Dr. Yassine Zarate ALP [Catalytic activity/Vol] 79 U/L Normal 46-[address] [facility] Comment on above: Performed By: #### C BC #### [facility] [address] [place] [address] Dr. Yassine Zarate ALT [Catalytic activity/Vol] 16 U/L Normal 14-[address] [facility] Comment on above: Performed By: #### C BC #### [facility] [address] [address] [address] Yassine Zarate Anion gap [Moles/Vol] 14.4 mmol/L Normal [facility] Comment on above: Performed By: #### C BC #### [facility] [address] [place] [address] Dr. Yassine Zarate AST [Catalytic activity/Vol] 13 U/L Critically low 15-[address] [facility] Comment on above: Performed By: #### C BC #### [facility] [address] [place] [address] Dr. Yassine Zarate Bilirubin [Mass/Vol] 0.5 mg/dL Normal 0.2-1.0 [facility] Comment on above: Performed By: #### C BC #### [facility] [address] [place] [address] Dr. Yassine Zarate Calcium [Mass/Vol] 8.8 mg/dL Normal 8.5-10.1 [facility] Comment on above: Performed By: #### C BC #### [facility] [address] [place] [address] Dr. Yassine Zarate Chloride [Moles/Vol] 103 mmol/L Normal 98-107 [facility] Comment on above: Performed By: #### C BC #### [facility] [address] [place] [address] Dr. Yassine Zarate CO2 [Moles/Vol] 25.7 mmol/L Normal 21.0-32.0 [facility] Comment on above: Performed By: #### C BC #### [facility] [address] [place] [address] Dr. Yassine Zarate Creatinine [Mass/Vol] 0.69 mg/dL Normal 0.55-1.02 [facility] Comment on above: Performed By: #### C BC #### [facility] [address] [place] [address] Dr. Yassine Zarate EGFR-AF NORTH KOREAN >60 Normal >=60 [facility] Comment on above: Performed By: #### C BC #### [facility] [address] [place] [address] Dr. Yassine Zarate EGFR-NON AF NORTH KOREAN >60 Normal >=[address] [facility] Comment on above: Performed By: #### C BC #### [facility] [address] [place] [address] Dr. Yassine Zarate Globulin (S) [Mass/Vol] 3.5 g/dL Normal [facility] Comment on above: Performed By: #### C BC #### [facility] [address] [address] [address] Yassine Zarate Glucose [Mass/Vol] 85 mg/dL Normal 74-106 [facility] Comment on above: Performed By: #### C BC #### [facility] [address] [place] [address] Dr. Yassine Zarate Potassium [Moles/Vol] 4.1 mmol/L Normal 3.5-5.[address] [facility] Comment on above: Performed By: #### C BC #### [facility] [address] [place] [address] Dr. Yassine Zarate Protein [Mass/Vol] 7.3 g/dL Normal 6.4-8.2 [facility] Comment on above: Performed By: #### C BC #### [facility] [address] [place] [address] Dr. Yassine Zarate Sodium [Moles/Vol] 139 mmol/L Normal 136-145 [facility] Comment on above: Performed By: #### C BC #### [facility] [address] [place] [address] Dr. Yassine Zarate Urea nitrogen [Mass/Vol] 13.0 mg/dL Normal 7.0-18.[address] [facility] Comment on above: Performed By: #### C BC #### [facility] [address] [address] [address] Yassine Zarate Urea nitrogen/Creatinine [Mass ratio] 18.8 mg/mg Normal [facility] Comment on above: Performed By: #### C BC #### [facility] [address] [place] [address] Dr. Yassine Zarate BASIC METABOLIC PANELon 05-04 BUN/CREATININE RATIO NOT APPLICABLE Normal 6-22 [facility] Comment on above: Order Comment: FASTI NG:NO FASTING: NO Performed By: #### 1 7306, 6399, 76450, 69771 #### [facility] [address] [place] [address] Forward Air Controller/Air Officer: Holden Mathur MD Calcium [Mass/Vol] 9.6 mg/dL Normal 8.6-10.2 [facility] Comment on above: Order Comment: FASTI NG:NO FASTING: NO Performed By: #### 1 7306, 6399, 38916, 53131 #### [facility] [address] [place] [address] Forward Air Controller/Air Officer: Holden Mathur MD Chloride [Moles/Vol] 105 mmol/L Normal 98-110 [facility] Comment on above: Order Comment: FASTI NG:NO FASTING: NO Performed By: #### 1 7306, 6399, 23594, 47684 #### [facility] [address] [place] [address] Forward Air Controller/Air Officer: Holden Mathur MD CO2 [Moles/Vol] 24 mmol/L Normal 20-32 [facility] Comment on above: Order Comment: FASTI NG:NO FASTING: NO Performed By: #### 1 7306, 6399, 39437, 12471 #### [facility] [address] [place] [address] Forward Air Controller/Air Officer: Holden Mathur MD Creatinine [Mass/Vol] 0.74 mg/dL Normal 0.50-1.10 [facility] Comment on above: Order Comment: FASTI NG:NO FASTING: NO Performed By: #### 1 7306, 6399, 98963, 99976 #### [facility] [address] [place] [address] Forward Air Controller/Air Officer: Holden Mathur MD eGFR NON-AFR. [place]TH [place]OREAN 110 mL/min/1.73m2 Normal > OR = 60 [facility] Comment on above: Order Comment: FASTI NG:NO FASTING: NO Performed By: #### 1 7306, 6399, 97712, 50012 #### [facility] [address] [place] [address] Forward Air Controller/Air Officer: Holden Mathur MD GFR/1.73 sq M.predicted among blacks MDRD (S/P/Bld) [Vol rate/Area] 128 mL/min/{1.73_m2} Normal > OR = 60 [facility] Comment on above: Order Comment: FASTI NG:NO FASTING: NO Performed By: #### 1 7306, 6399, 99540, 25579 #### [facility] [address] [place] [address] Forward Air Controller/Air Officer: Holden Mathur MD Glucose [Mass/Vol] 83 mg/dL Normal 65-139 [facility] Comment on above: Order Comment: FASTI NG:NO FASTING: NO Result Comment: Non-fasting reference interval Performed By: #### 1 7306, 6399, , 21901 #### [facility] [address] [place] [address] Forward Air Controller/Air Officer: Holden Mathur MD Potassium [Moles/Vol] 4.5 mmol/L Normal 3.5-5.3 [facility] Comment on above: Order Comment: FASTI NG:NO FASTING: NO Performed By: #### 1 7306, 6399, 07970, 18027 #### [facility] [address] [place] [address] Forward Air Controller/Air Officer: Holden Mathur MD Sodium [Moles/Vol] 138 mmol/L Normal 135-146 [facility] Comment on above: Order Comment: FASTI NG:NO FASTING: NO Performed By: #### 1 7306, 6399, 39181, 53142 #### [facility] [address] [place] [address] Forward Air Controller/Air Officer: Holden Mathur MD Urea nitrogen [Mass/Vol] 16 mg/dL Normal 7-25 [facility] Comment on above: Order Comment: FASTI NG:NO FASTING: NO Performed By: #### 1 7306, 6399, 01263, 22665 #### [facility] [address] [address] [place] [address] Forward Air Controller/Air Officer: Holden Mathur MD CBC (INCLUDES DIFF/PLT)on Basophils (Bld) [#/Vol] 0.05 10*3/uL Normal 0-200 [facility] Comment on above: Performed By: #### 1 7306, 6399, 20910, 03442 #### [facility] [address] [place] [address] Forward Air Controller/Air Officer: Holden Mathur MD Basophils/100 WBC (Bld) 0.8 % Normal [facility] Comment on above: Performed By: #### 1 7306, 6399, 28915, 28974 #### [facility] [address] [place] [address] Forward Air Controller/Air Officer: Holden Mathur MD Eosinophils (Bld) [#/Vol] 0.112 10*3/uL Normal 15-500 [facility] Comment on above: Performed By: #### 1 7306, 6399, 48381, 63211 #### [facility] [address] [place] [address] Forward Air Controller/Air Officer: Holden Mathur MD Eosinophils/100 WBC (Bld) 1.8 % Normal [facility] Comment on above: Performed By: #### 1 7306, 6399, 01832, 74554 #### [facility] [address] [place] [address] Forward Air Controller/Air Officer: Holden Mathur MD Erythrocyte distribution width (RBC) [Ratio] 12.3 % Normal 11.0-15.0 [facility] Comment on above: Performed By: #### 1 7306, 6399, 61663, 87797 #### [facility] of [address] [address] Forward Air Controller/Air Officer: Holden Mathur MD Hematocrit (Bld) [Volume fraction] 39.4 % Normal 35.0-45.0 [facility] Comment on above: Performed By: #### 1 7306, 6399, 23023, 87890 #### [facility] [address] [address] Forward Air Controller/Air Officer: Holden Mathur MD Hemoglobin (Bld) [Mass/Vol] 13.2 g/dL Normal 11.7-15.5 [facility] Comment on above: Performed By: #### 1 7306, 6399, 98714, 20674 #### [facility] [address] [address] Forward Air Controller/Air Officer: Holden Mathur MD Lymphocytes (Bld) [#/Vol] 1.835 10*3/uL Normal 850-3900 [facility] Comment on above: Performed By: #### 1 7306, 6399, 44428, 61229 #### [facility] [address] [place] [address] Forward Air Controller/Air Officer: Holden Mathur MD Lymphocytes/100 WBC (Bld) 29.6 % Normal [facility] Comment on above: Performed By: #### 1 7306, 6399, , 96967 #### [facility] [address] [place] [address] Forward Air Controller/Air Officer: Holden Mathur MD MCH (RBC) [Entitic mass] 27.6 pg Normal 27.0-33.0 [facility] Comment on above: Performed By: #### 1 7306, 6399, 73852, 80559 #### [facility] [address] [place] [address] Forward Air Controller/Air Officer: Holden Mathur MD MCHC (RBC) [Mass/Vol] 33.5 g/dL Normal 32.0-36.0 [facility] Comment on above: Performed By: #### 1 7306, 6399, 71964, 25859 #### [facility] [address] [place] [address] Forward Air Controller/Air Officer: Holden Mathur MD MCV (RBC) [Entitic vol] 82.4 fL Normal 80.0-100.0 [facility] Comment on above: Performed By: #### 1 7306, 6399, 55242, 14037 #### [facility] [address] [place] [address] Forward Air Controller/Air Officer: Holden Mathur MD Monocytes (Bld) [#/Vol] 0.459 10*3/uL Normal 200-950 [facility] Comment on above: Performed By: #### 1 7306, 6399, 93998, 33468 #### [facility] [address] [place] [address] Forward Air Controller/Air Officer: Holden Mathur MD Monocytes/100 WBC (Bld) 7.4 % Normal [facility] Comment on above: Performed By: #### 1 7306, 6399, 40915, 42397 #### [facility] [address] [place] [address] Forward Air Controller/Air Officer: Holden Mathur MD Neutrophils (Bld) [#/Vol] 3.745 10*3/uL Normal 8685-9936 [facility] Comment on above: Performed By: #### 1 7306, 6399, , 23925 #### [facility] [address] [place] [address] Forward Air Controller/Air Officer: Holden Mathur MD Neutrophils/100 WBC (Bld) 60.4 % Normal [facility] Comment on above: Performed By: #### 1 7306, 6399, 62676, 05407 #### [facility] [address] [place] [address] Forward Air Controller/Air Officer: Holden Mathur MD Platelet mean volume (Bld) [Entitic vol] 10.0 fL Normal 7.5-12.5 [facility] Comment on above: Performed By: #### 1 7306, 6399, 24280, 42296 #### [facility] [address] [place] [address] Forward Air Controller/Air Officer: Holden Mathur MD Platelets (Bld) [#/Vol] 303 10*3/uL Normal 140-400 [facility] Comment on above: Performed By: #### 1 7306, 6399, 42842, 07602 #### [facility] of [address], [address] [place] [address] Forward Air Controller/Air Officer: Holden Mathur MD RBC (Bld) [#/Vol] 4.78 10*6/uL Normal 3.80-5.10 [facility] Comment on above: Performed By: #### 1 7306, 6399, 55787, 23668 #### [facility] [address], [address] [place] [address] Forward Air Controller/Air Officer: Holden Mathur MD WBC (Bld) [#/Vol] 6.2 10*3/uL Normal 3.8-10.8 [facility] Comment on above: Performed By: #### 1 7306, 6399, 93043, 33795 #### [facility] [address], [address] [place] [address] Forward Air Controller/Air Officer: Holden Mathur MD TEST AUTHORIZATIONon CLIENT CONTACT: YADI Sykes Normal [facility] Comment on above: Performed By: #### 1 7306, 6399, 69092, 71263 #### [facility] [address], [address] [place] [address] Forward Air Controller/Air Officer: Holden Mathur MD COMMENT Normal [facility] Comment on above: Result Comment: Plea se have the ordering physician or his or her authorized financial sales representative sign a copy of this report and promptly return it by faxing it to: [phone] or by returning the form to your thermal cutting tracer machine operator. Performed By: #### 1 7306, 6399, 53409, 68977 #### [facility] [address], [address] [place] [address] Forward Air Controller/Air Officer: Holden Mathur MD REPORT ALWAYS MESSAGE SIGNATURE Normal [facility] Comment on above: Result Comment: The laboratory testing on this patient was verbally requested or confirmed by the ordering physician or his or her authorized financial sales representative after contact with an employee of [employer]. Federal regulations require that we maintain on file written authorization for all laboratory testing. Accordingly we are asking that the ordering physician or his or her authorized financial sales representative sign a copy of this report and promptly return it to the client service associate. Signature: Performed By: #### 1 7306, 6399, 22826, 62334 #### [facility] [address], [address] [place] [address] Forward Air Controller/Air Officer: Holden Mathur MD TEST CODE: [id number] Normal [facility] Comment on above: Performed By: #### 1 7306, 6399, 91839, 90131 #### [facility] [address], [address] [place] [address] Forward Air Controller/Air Officer: Holden Mathur MD TEST NAME: TSH W/REFLEX TO FT4 Normal [facility] Comment on above: Performed By: #### 1 7306, 6399, 49123, 03235 #### [facility] [address], [address] [place] [address] Forward Air Controller/Air Officer: Holden Mathur MD TSH W/REFLEX TO FT4on 2021 TSH W/REFLEX TO FT4 1.13 mIU/L Normal [facility] Comment on above: Result Comment: Refe rence Range > or = 20 Years 0.40-4.50 Ranges First trimester 0.26-2.66 Second trimester 0.55-2.73 Third trimester 0.43-2.91 Performed By: #### 1 7306, 6399, 39927, 92115 #### [facility] [address] [place] [address] Forward Air Controller/Air Officer: Holden Mathur MD VITAMIN D,25-OH,TOTAL,IAon 0 05-24-2021 VITAMIN D,25-OH,TOTAL,IA 56 ng/mL Normal 30-100 [facility] [...] D, (D2,D3), LC/MS/MS is recommended: order code 65725 (patients >2yrs). See Note 1 Note 1 For additional information, please refer to http://education.[place].[employer]/faq/AHJ330 (This link is being provided for informational/ educational purposes only.) Performed By: #### 1 7306, 6399, 22731, 94016 #### [facility] [address] [facility], [address] [place] [address] Forward Air Controller/Air Officer: Holden Mathur MD COVID-19 Lab [facility] 07-08-19 21 SARS-CoV-2 (COVID-19) RNA SARAH+probe Ql (Unsp spec) Not detected Normal Not Detected [facility] Comment on above: Order Comment: Healt hcare Worker?: N Result Comment: This nucleic acid amplification test was developed and its performance characteristics determined by [employer]. Nucleic acid amplification tests include RT- PCR [...] detected) result in this assay. PERFORMED BY: [facility] [address] [place] [address] PATHOLOGIST MANAGER OF ENGINEERING JADE TOMLINSON M.D. Performed By: #### C ORONAVIRUS #### [facility] , Vital Signs Date Time Vital Sign Value Performing Clinician Facility 05-14-2023 10:59-0500 Body mass index (BMI) [Ratio] 37.94 kg/m2 Cherrie Cornell MD Work Phone: [facility] 05-14-2023 10:59-0500 Body weight 91.08 kg Cherrie Cornell MD Work Phone: [facility] 05-14-2023 10:59-0500 Diastolic blood pressure 68 mm[Hg] Cherrie Cornell MD Work Phone: [facility] 05-14-2023 10:59-0500 Heart rate 87 /min Cherrie Cornell MD Work Phone: [facility] 05-14-2023 10:59-0500 Systolic blood pressure 108 mm[Hg] Cherrie Cornell MD Work Phone: [facility] 03-23-2022 16:07-0500 Body weight 81.1944 kg YADI DIAZ . [facility] Comment on above: Performed By: #### A FPMAT #### [facility] [address] [place] [address] Dr. Yassine Zarate Encounters Encounter Date Encounter Type Care Provider Facility Start: 09-21-2023 End: 09-21-2023 [facility] Start: 09-19-2023 End: 09-19-2023 ambulatory SANTOSH CAIN Not Available Start: 09-17-2023 End: 09-17-2023 Emergency department patient visit BEBO AVILA [facility] Start: 09-12-2023 End: 09-12-2023 ambulatory CHERRIE MIRZAMAGDY [facility] Start: 09-03-2023 End: 09-03-2023 ambulatory SANTOSH CAIN Not Available Start: 08-30-2023 End: 09[facility]03[facility] Start: 08-28-2023 End: 08-28-2023 ambulatory MONTRELL TIMMONS [facility] Start: 08-28-2023 End: 08-28-2023 ambulatory DARLING JOHNSON [facility] Start: 08-20-2023 End: 08-20-2023 ambulatory [facility] Start: 08-20-2023 Encounter for other specified special examinations MANUEL VILLARTESON [facility] Start: 08-20-2023 End: 08-20-2023 ambulatory [facility] Start: 08-10-2023 End: 08-10-2023 ambulatory SANTOSH R [facility] Start: 08-09-2023 End: 08-09-2023 ambulatory SANTOSH CAIN Not Available Start: 07-23-2023 End: 07-23-2023 ambulatory SANTOSH CAIN Not Available Start: 07-02-2023 End: 07-02-2023 ambulatory YADI PERALES Not Available Start: 06-23-2023 End: 06-23-[address] [facility] Start: 06-23-2023 End: 06-24-2023 ambulatory SANTOSH [facility] Start: 06-13-2023 End: 06-13-2023 ambulatory SANTOSH R [facility] Start: 06-07-2023 End: 06-07-2023 Emergency department patient visit BEBO AVILA [facility] Start: 06-04-2023 End: 06-04-2023 ambulatory SANTOSH CAIN Not Available Start: 05-23-2023 End: 05-23-2023 ambulatory [facility] Start: 05-14-2023 End: 05-14-2023 Office consultation new/estab patient 60 min Cherrie Cornell MD Work Phone: [facility] Comment on above: 19 weeks gestation o f (Primary Dx); Mixed anxiety and depressive disorder; Depression affecting ; Anxiety during ; Hx of maternal laceration, 4th degree, currently ; headache in second trimester; Obesity affecting in second trimester, unspecified obesity type Start: 05-14-2023 End: 05-14-2023 ambulatory SANTOSH R CAIN [facility] Start: 05-11-2023 Chart abstracting Cherrie paez MD Work Phone: [facility] Start: 05-07-2023 Bamboo flowsheet Yadi MEHTA Work Phone: [facility] Start: 05-07-2023 Bamboo flowsheet Yadi MEHTA Work Phone: [facility] Start: 05-07-2023 External Result Encounter Yadi MEHTA Work Phone: [facility] External Department Unsolicited Start: 05-07-2023 End: 05-07-2023 ambulatory YADI PERALES Not Available Start: 04-23-2023 End: 04-23-[address] [place] [address] Start: 04-09-2023 End: 04-09-2023 ambulatory SANTOSH GUADALUPE Not Available Start: 03-09-2023 End: 03-09-2023 ambulatory SANTOSH GUADALUPE Not Available Start: 08-07-2022 End: 08-07-[address] TAY GRANADOS Facility:[facility] Start: 08-02-2022 End: 08-05-2022 Evaluation and management of inpatient DR SANTOSH GUADALUPE . Facility:[facility] Start: 07-06-2022 End: 07-06-[address] SANTOSH GUADALUPE . Facility:[facility] Start: 06-15-2022 End: 06-16-[address] VILMA COBURN Facility:[facility] Start: 06-02-2022 End: 06-02-[address] GILL THOMPSON . Facility:[facility] Start: 04-20-2022 End: 04-20-[address] SANTOSH GUADALUPE . Facility:[facility] Start: 04-20-2022 End: 04-21-2022 ambulatory YADI PERALES . Facility:[facility] Start: 03-21-2022 End: 03-22-[address] SANTOSH GUADALUPE . Facility:[facility] Start: 01-17-2022 End: 01-18-[address] SANTOSH GUADALUPE . Facility:[facility] Start: 12-29-2021 End: 12-30-[address] SANTOSH GUADALUPE . Facility:[facility] Start: 11-12-2021 End: 11-13-[address] BEBO JORGE Facility:[facility] Start: 11-09-2021 End: 11-10-2021 ambulatory MONTRELL IAIN Facility:[facility] Procedures Date Procedure Procedure Detail Performing Clinician Start: 05-23-2023 End: 05-23-2023 Ophth medical xm&eval compre new pt 1/> vst Myopia of both eyes [facility] OD Work Phone: Comment on above: Myopia of both eyes (Primary Dx); Regular astigmatism of left eye Start: 05-07-2023 URETHRITIS/DISCHARGE PLUS VAGINITIS (HTRX) Yadi MEHTA Work Phone: Start: 03-15-2023 Adult depression screening assessment Cherrie Cornell MD Work Phone: Start: 03-09-2023 FREE CELL DNA (NON-[place]) Not In System Ref Prov Start: 08-03-2022 Delivery of Products of Conception, External Approach YADI PERALES . Start: 08-03-2022 Division of Female Perineum, External Approach YADI PERALES . Start: 08-03-2022 Drainage of Amniotic Fluid, Therapeutic from Products of Conception, Via Natural or Artificial Opening YADI PERALES . Start: 08-03-2022 Introduction of Othe r Hormone into Peripheral Vein, Percutaneous Approach YADI PERALES . Start: 04-20-2022 Microscopic observat ion [Identifier] in Cervix by Cyto stain Yadi MEHTA Work Phone: Plan of Treatment Date Care Activity Detail Author Start: 04-20-2027 Screening for malign ant neoplasm of cervix [facility] Start: 04-20-2025 Screening for malign ant neoplasm of cervix Pap Smear [facility] Start: 05-30-2024 End: 05-30-2024 Patient encounter procedure 05/30/2024 2:45 PM EST Office Visit [facility] [address] [place] [address] [facility] [address] [address] [facility] Start: 05-23-2024 Tobacco Screening Tobacco Screening [facility] Start: 05-14-2024 Adult BMI Screening Adult BMI Screen ing [facility] Start: 05-14-2024 Tobacco Screening Tobacco Screening [facility] Start: 03-15-2024 Adult BMI Screening Adult BMI Screen ing [facility] Start: 03-15-2024 Depression Screening Depression Scre ening [facility] Start: 02-09-2024 Tobacco Screening Tobacco Screening [facility] Start: 06-13-2023 End: 06-13-2023 Patient encounter procedure 06/13/2023 8:00 AM EDT Appointment [facility] [address] [place] [address] [facility] Start: 06-04-2023 End: 06-04-2023 Patient encounter procedure 06/04/2023 10:20 AM EST Routine [facility] [address] [place] [address] Santosh Guadalupe, [address] [place] [address] [facility] Start: 05-23-2023 End: 05-23-2023 Patient encounter procedure 05/23/2023 3:00 PM EST Office Visit [facility] [address] [place] [address] [facility] [address] [facility] [address] [place] [address] [facility] Start: 05-16-2023 End: 05-16-2023 Telemedicine consultation with patient 05/16/2023 9:30 AM EST Telemedicine [facility] [address] [place] [id number] Jonny Valentino MD [address] [facility] [place] [address] [facility] Start: 05-14-2023 End: 05-14-2023 Patient encounter procedure 05/14/2023 11:00 AM EST Office Visit [facility] at [facility] [address] [facility] [place] [address] Cherrie Cornell MD [address], [address] [place] [address] [facility] Start: 05-14-2023 Subsequent hospital visit by physician 05/14/2023 10:00 AM EST Hospital Encounter [facility] [address] [place] [phone] [facility] Start: 05-07-2023 End: 05-07-2023 Patient encounter procedure 05/07/2023 10:30 AM EST Routine [facility] [address] [place] [address] Yadi Perales PA [address] [place] [address] Arrived [facility] Comment on above: Arrived Start: 12-01-2022 COVID-19 Vaccine ( season) COVID-19 Vaccine ( season) [facility] Start: 12-01-2022 Influenza vaccination [facility] Start: 11-17-2019 DTaP,Tdap and Td Vaccines (7 - Td or Tdap) DTaP,Tdap and Td Vaccines (7 - Td or Tdap) [facility] Start: 2010 Adult BMI Follow Up Plan Adult BMI Follow Up Plan [facility] Immunizations Immunization Date Immunization Notes Care Provider Fa cili 04-25-2023 influenza virus vaccine, unspecified formulation Yadi MEHTA Work Phone: [facility] 08-23-2020 COVID-19, mRNA, LNP- S, PF, 100mcg/0.5mL Dose Cherrie Cornell MD Work Phone: [facility] 07-26-2020 COVID-19, mRNA, LNP- S, PF, 100mcg/0.5mL Dose Cherrie Cornell MD Work Phone: [facility] Payers Date Payer Category Payer Medicaid [id number] 2021 Unknown [id number] 1992 Unknown [id number] 2.16.84 0.1.634010.3.579.2.593 1992 Unknown [id number] 2.16.84 0.1.404932.3.579.2.593 1992 Unknown [id number] 2.16.84 0.1.519422.3.579.2.593 1992 Unknown [id number] 2.16.84 0.1.592133.3.579.2.593 1992 Unknown [id number] 2.16.84 0.1.415896.3.579.2.593 1992 Unknown [id number] 2.16.84 0.1.464629.3.579.2.593 1992 Unknown [id number] 2.16.84 0.1.153353.3.579.2.593 1992 Unknown [id number] 2.16.84 0.1.989988.3.579.2.593 1992 Unknown [id number] 2.16.84 0.1.043562.3.579.2.593 1992 Unknown [id number] 2.16.84 0.1.002372.3.579.2.593 1992 Unknown [id number] 2.16.84 0.1.736002.3.579.2.593 1992 Unknown [id number] 2.16.84 0.1.539937.3.579.2.593 1992 Unknown [id number] 2.16.84 0.1.746396.3.579.2.593 1992 Unknown [id number] 2.16.8 40.1.034960.3.579.2.1286 1992 Unknown [id number] 2.16.8 40.1.171410.3.579.2.1286 1992 Unknown [id number] 2.16.8 40.1.524570.3.579.2.1286 1992 Unknown [id number] 2.16.8 40.1.554479.3.579.2.1286 1992 Unknown [id number] 2.16.84 0.1.554364.3.579.2.1259 1992 Unknown [id number] 2.16.84 0.1.831809.3.579.2.9 1992 Unknown [id number] 2.16.84 0.1.344804.3.579.2.1259 1992 Unknown [id number] 2.16.84 0.1.772229.3.579.2.1259 1992 Unknown [id number] 2.16.84 0.1.447121.3.579.2.1259 1992 Unknown [id number] 2.16.84 0.1.186623.3.579.2.1259 1992 Unknown [id number] 2.16.84 0.1.539425.3.579.2.1259 1992 Unknown [id number] 2.16.840 .1.822388.3.579.2.1259 1992 Unknown [id number] 2.16.840 .1.736815.3.579.2.1259 1992 Unknown [id number] 2.16.8 40.1.871619.3.579.2.1285 1992 Unknown [id number] 2.16.8 40.1.921622.3.579.2.1285 1992 Unknown [id number] 2.16.8 40.1.605583.3.579.2.1285 1992 Unknown [id number] 2.16.8 40.1.159232.3.579.2.1285 1992 Unknown [id number] 2.16.8 40.1.908384.3.579.2.1285 1992 Unknown [id number] 2.16.8 40.1.741272.3.579.2.1285 1992 Unknown [id number] 2.16.8 40.1.855356.3.579.2.1285 1992 Unknown [id number] 2.16.8 40.1.859231.3.579.2.1285 1992 Unknown [id number] 2.16.8 40.1.578745.3.579.2.1285 1992 Unknown [id number] 2.16.8 40.1.078217.3.579.2.1285 1992 Unknown [id number] 2.16.8 40.1.629158.3.579.2.1285 1992 Unknown [id number] 2.16.8 40.1.028398.3.579.2.1285 1992 Unknown [id number] 2.16.8 40.1.063358.3.579.2.1285 1992 Unknown [id number] 2.16.8 40.1.818513.3.579.2.1285 1992 Unknown [id number] 2.16.8 40.1.260076.3.579.2.1285 1992 Unknown [id number] 2.16.84 0.1.150765.3.579.2.1286 1959 Self-pay 1959 Unknown [id number] 1959 Unknown [id number] Unknown [id number] 2.16.84 0.1.571725.3.579.2.593 Social History Date Type Detail Facility Start: 09-11-2022 End: 02-08-2023 Tobacco smoking status NHIS Ex-smoker [facility] History of tobacco use Current smoker [facility] History of tobacco use Cigarette Smoker [facility] Start: 04-09-2023 Alcohol intake Current drinke r of alcohol (finding) [facility] Start: 04-21-2020 End: 12-18-2022 History of Social function [facility] Start: 04-21-2020 End: 12-18-2022 Tobacco use panel [facility] Start: 09-11-2022 Alcohol Comment monthly or less [facility] Start: 01-12-2023 [facility] Start: 1992 Sex Assigned At Female [facility] Start: 09-12-2022 Gender identity Identifies as female gender (finding) [facility] Start: 02-08-2023 Tobacco use and exposure Smokeless tobacco non-user [facility] Start: 05-11-2023 End: 05-23-2023 Alcohol intake Ex-drinker (finding) [facility] How hard is it for you to pay for the very basics like food, housing, medical care, and heating Not hard at all [facility] Start: 02-08-2023 Alcohol Comment Occasional [facility] Start: 1992 Sex Assigned At Not on file P [facility] History of Present illness Narrative 05-23-2023 Beto Cao, OD - 05/23/2023 3:00 PM EST Note Date & Type Note Facility 05-23-2023 History of Present illness Narrative Jesenia Hernandez had concerns including Eye Exam. 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 Patient is 21 weeks , experiencing blurred vision for about 6-7 months. Patient is unsure of when her last eye exam was. Patient uses OTC ATs PRN Last edited by Beto Cao OD on 05/23/2023 3:36 PM. ROS Positive for: Eyes Last edited by Frances Clifford on 05/23/2023 3:33 PM. No current outpatient medications on file. (Ophthalmic Drugs) No current facility-administered medications for this visit. (Ophthalmic Drugs) Current Outpatient Medications (Other) Medication Sig escitalopram (LEXAPRO) 20 mg tablet Take 1 tablet (20 mg total) by mouth in the morning. magnesium oxide (MAGOX) 400 mg tablet Take 1 tablet (400 mg total) by mouth in the morning and 1 tablet (400 mg total) before bedtime. omeprazole (PriLOSEC OTC) 20 mg EC tablet Prilosec OTC 20 mg tablet,delayed release PLUS, CALCIUM CARB, 27 mg iron- 1 mg tablet ondansetron ODT (ZOFRAN ODT) 4 mg disintegrating tablet Dissolve 1 tablet (4 mg total) on tongue every 8 (eight) hours as needed for nausea or vomiting. (Patient not taking: Reported on 05/23/2023) progesterone (FIRST-PROGESTERONE VGS) 200 mg suppository Insert 1 suppository (200 mg total) into the vagina. (Patient not taking: Reported on 03/15/2023) sertraline (ZOLOFT) 50 mg tablet Take 0.5 tablets (25 mg total) by mouth in the morning. (Patient not taking: Reported on 05/14/2023) No current facility-administered medications for this visit. (Other) Social History Socioeconomic History Marital status: Legally Spouse name: Not on file Number of children: Not on file Years of education: Not on file Highest education level: Not on file Occupational History Not on file Tobacco Use Smoking status: Former Types: Cigarettes Smokeless tobacco: Never Vaping Use Vaping Use: Never used Substance and Sexual Activity Alcohol use: Not Currently Comment: Occasional Drug use: No Sexual activity: Yes Partners: Male control/protection: None Other Topics Concern Not on file Social History Narrative Not on file Social Determinants of Health Financial Resource Strain: Low Risk (02/06/2023) Overall Financial Resource Strain (CARDIA) Difficulty of Paying Living Expenses: Not hard at all Food Insecurity: No Food Insecurity (05/14/2023) Hunger Screening Food Insecurity - Worry: Never True Food Insecurity - Inability: Never True Transportation Needs: No Transportation Needs (02/06/2023) PRAPARE - Transportation Lack of Transportation (Medical): No Lack of Transportation (Non-Medical): No Physical Activity: Not on file Stress: Not on file Social Connections: Not on file Interpersonal Safety: Not on file Housing Instability: Low Risk (02/06/2023) Housing Instability Housing Instability: No Family History Problem Relation Age of Onset Hypertension Mother Alcohol abuse Mother COPD Mother Breast cancer Paternal Aunt Lupus Paternal Aunt Breast cancer Maternal Grandmother Diabetes Maternal Grandfather Heart disease Paternal Grandfather Ms. Hernandez has a past medical history of Anxiety, Carpal tunnel syndrome, Depression, Enlarged ovary, GERD (gastroesophageal reflux disease), and Low back pain. She has a past surgical history that includes [place] tooth extraction (09/2011); h-fl epidural lumbar steroid inj ro; Injection Nerve Block (Bilateral, 05/02/2019); Injection Nerve Block (Bilateral, 09/19/2019); Injection Nerve Block (Bilateral, 10/31/2019); and Exploratory laparotomy. Base Eye Exam Visual Acuity (Snellen - Linear) Right Left Both Dist sc 20/20 20/25 20/20 Near sc J1+ J1+ J1+ Visual Hood (Counting fingers) Right Left Full Full Neuro/Psych Oriented x3: Yes Mood/Affect: Normal Slit Lamp and Fundus Exam External Exam Right Left External Normal Normal Slit Lamp Exam Right Left Lids/Lashes Normal Normal Conjunctiva/Sclera White and quiet White and quiet Cornea Clear Clear Anterior Chamber Deep and quiet Deep and quiet Iris Round and reactive Round and reactive Lens Clear Clear Fundus Exam Right Left Vitreous Normal Normal Disc Normal Normal Macula Normal Normal Vessels Normal Normal Periphery Normal Normal Refraction Manifest Refraction (Auto) Sphere Cylinder [place] Right -0.25 -0.25 159 Left [place] -0.50 052 Final Rx Sphere Cylinder [place] Dist [place] Right -0.25 Sphere 20/25 Left -0.25 -0.75 050 20/20 Assessment: 1. Myopia of both eyes 2. Regular astigmatism of left eye Plan: 1. Myopia of both eyes Very mild Rx is noted today OU, will hold off on glasses at this point. 2. Regular astigmatism of left eye See #1 Discussed with patient that failure to follow up as recommended (appointment time, onset of new ocular symptoms) can lead to permanent loss of vision and/or blindness. Patient understands and agrees. Return Visit: 1 year VE Physician: BETO CAO OD Scribe: Rola Grover Scribe Statement: Scribed for and in the presence of BETO CAO OD by Rola Grover I, BETO CAO OD personally performed the services described in the documentation, as scribed by Rola Grover in my presence, and it is both accurate and complete. documented in this encounter [facility] History of Present illness Narrative 05-14-2023 Cherrie Cornell MD - 05/14/2023 11:00 AM Solomon Austin RN - 05/14/2023 11:00 AM EST Note Date & Type Note Facility 05-14-2023 History of Present illness Narrative [facility] Consult Note Reason For Consult: anxiety and depression HPI: Jesenia Hernandez is a 32 y.o. at 19w3d with Estimated Date of Delivery: 10/05/23 based on who presented for consultation from Santosh Cook DO regarding Chief Complaint Patient presents with use of zoloft during I have reviewed the pertinent available patient records including but not limited to notes, labs and images She presents today with her partner. She reports that she is doing well. She reports normal movements and she denies leakage of fluid, contractions or vaginal bleeding. She denies fever, chills, nausea, vomiting, shortness of breath, chest pain, headache, blurry vision, right upper quadrant pain or edema. Complications: Anxiety and depression - was on zoloft -> now off zoloft and lexapro 20 mg daily. 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 Was getting lumbar shots for pain Headaches - not today, has some on/off, asymptomatic today. Denies family history of congenital anomalies, DVT/VTE, early-onset cancer, early-onset cardiac disease or other inherited conditions HTN - mother COPD - mother Breast cancer -maternal grandmother age not sure [place] - paternal grandfather Lupus father sister FOB half sister's children have autism Denies smoking, alcohol or other substance use in She has had low risk aneuploidy screen for select aneuploidy of chromosomes 21, 13, 18 and sex chromosomes. Female No carrier screen Recent hospitalization: no Review of systems: Review of systems was noncontributory OB Hx: OB History Para Term AB Living 4 2 2 1 2 SAB IAB Ectopic Multiple Live Births 1 2 # Outcome Date GA Lbr Kiet/2nd Weight Sex Delivery Anes PTL Lv 4 Current 3 Term 08/03/22 40w0d 3.345 kg M Vag-Vacuum N [place] Complications: Obstetrical laceration, fourth degree 2 SAB 2021 4w0d 1 Term 2016 40w0d 2.835 kg F Vag-Spont N [place] PREECLAMPSIA SCREEN ([place] Preventive Services Task Force) Patient is at high risk if 1 or more factors present. Incidence of preeclampsia is ? 8%: Prior preeclampsia NO Multiple gestation NO Chronic hypertension NO Type 1 or 2 diabetes NO Renal disease NO Autoimmune disease NO (Lupus, APLS) Patient is at moderate risk is several risk factors are present: Nulliparity NO Obesity (BMI ? 30) YES Family history of preeclampsia NO (Mother, sister) NO Sociodemographic characteristics NO (AA, low socioeconomic status) Age ? 37 NO Personal history factor NO (Previous SGA, adverse outcome, > 10 years from last ) PMH: Past Medical History: Diagnosis Date Anxiety Carpal tunnel syndrome Depression Enlarged ovary GERD (gastroesophageal reflux disease) Low back pain PSHIST: Past Surgical History: Procedure Laterality Date EXPLORATORY LAPAROTOMY FL EPIDURAL LUMBAR STEROID INJ RO INJECTION MEDIAL BRANCH NERVE BLOCK Bilateral L 4/5, 5/1 Bilateral 10/31/2019 Performed by Mina Silva MD at [facility] INJECTION MEDIAL BRANCH NERVE BLOCK Bilateral L 4/5,5/1 Bilateral 09/19/2019 Performed by Mina Silva MD at [facility] INJECTION SACROILIAC NERVE Bilateral 05/02/2019 Performed by Mina Silva MD at [facility] WISDOM TOOTH EXTRACTION 09/2011 Allergies: No Known Allergies Meds: Current Outpatient Medications: escitalopram (LEXAPRO) 20 mg tablet, Take 1 tablet (20 mg total) by mouth in the morning., Disp: , Rfl: omeprazole (PriLOSEC OTC) 20 mg EC tablet, Prilosec OTC 20 mg tablet,delayed release, Disp: , Rfl: ondansetron ODT (ZOFRAN ODT) 4 mg disintegrating tablet, Dissolve 1 tablet (4 mg total) on tongue every 8 (eight) hours as needed for nausea or vomiting., Disp: , Rfl: PLUS, CALCIUM CARB, 27 mg iron- 1 mg tablet, , Disp: , Rfl: magnesium oxide (MAGOX) 400 mg tablet, Take 1 tablet (400 mg total) by mouth in the morning and 1 tablet (400 mg total) before bedtime., Disp: 30 tablet, Rfl: 1 progesterone (FIRST-PROGESTERONE VGS) 200 mg suppository, Insert 1 suppository (200 mg total) into the vagina. (Patient not taking: Reported on 03/15/2023), Disp: , Rfl: sertraline (ZOLOFT) 50 mg tablet, Take 0.5 tablets (25 mg total) by mouth in the morning. (Patient not taking: Reported on 05/14/2023), Disp: , Rfl: SH: Social History Socioeconomic History Marital status: Legally Spouse name: Not on file Number of children: Not on file Years of education: Not on file Highest education level: Not on file Occupational History Not on file Tobacco Use Smoking status: Former Types: Cigarettes Smokeless tobacco: Never Vaping Use Vaping Use: Never used Substance and Sexual Activity Alcohol use: Not Currently Comment: Occasional Drug use: No Sexual activity: Yes Partners: Male control/protection: None Other Topics Concern Not on file Social History Narrative Not on file Social Determinants of Health Financial Resource Strain: Low Risk (02/06/2023) Overall Financial Resource Strain (CARDIA) Difficulty of Paying Living Expenses: Not hard at all Food Insecurity: No Food Insecurity (05/14/2023) Hunger Screening Food Insecurity - Worry: Never True Food Insecurity - Inability: Never True Transportation Needs: No Transportation Needs (02/06/2023) PRAPARE - Transportation Lack of Transportation (Medical): No Lack of Transportation (Non-Medical): No Physical Activity: Not on file Stress: Not on file Social Connections: Not on file Interpersonal Safety: Not on file Housing Instability: Low Risk (02/06/2023) Housing Instability Housing Instability: No Physical Exam: Vital Signs Vitals: 05/14/23 1059 BP: 108/68 BP Site: Left Arm BP Postition: Lying BP CUFF SIZE: Other Pulse: 87 Weight: 91.1 kg (200 lb 12.8 oz) Physical Exam: Gen: Not in acute distress, alert and oriented. Eyes: Pupils equal and reactive Chest: Nonlabored breathing Cardiac: Pulse was regular on vital signs assessment Abdomen: Gravid Skin/extremities: Appears intact. No visible lesions MS:no visible edema Neuro: No focal deficits Notes/Imaging/Labs reviewed Hospital Outpatient Visit on 04/23/2023 Component Date Value Ref Range Status Varicella IgG 04/23/2023 0.7 <0.9 AI Final Comment: Interpretation-------- <0.9 Negative 0.9 - 1.0 Equivocal >1.0 Positive Ultrasound findings Pertinent Ultrasound findings are see report. Assessment/Plan 32 y.o. @ at 19w3d with Estimated Date of Delivery: 10/05/23 here for consultation regardin. 19 weeks gestation of - magnesium oxide (MAGOX) 400 mg tablet; Take 1 tablet (400 mg total) by mouth in the morning and 1 tablet (400 mg total) before bedtime. Dispense: 30 tablet; Refill: 1 2. Mixed anxiety and depressive disorder 3. Depression affecting 4. Anxiety during Approximately one in five women experiences an episode of major depressive disorder (MDD) over the course of her lifetime. Psychosocial and familial factors and medical history are related to the risk for depression after delivery. In particular, a personal history of depression, a family history of depression, and the lack of partner support increase the risk for depression. She denies any history of bipolar disorder, history of donna, no suicidal or homicidal thoughts. We reviewed adverse outcomes with the anxiety and depression during the . SSRIs are generally considered an option during , including citalopram/escitalopram and sertraline (Zoloft). Potential complications include maternal weight changes and premature . Most studies show that SSRIs aren't associated with defects. However, paroxetine (Paxil) might be associated with a small increased risk of a heart defect and is generally discouraged during . Reviewed the risk of pulmonary hypertension in less than 04/999 fetus is exposed to SSRIs in . In addition we discussed withdrawal and reviewed with her that her baby might experience temporary signs and symptoms of discontinuation -- such as jitters, irritability, poor feeding and respiratory distress -- for up to a month after . with escitalopram reviewed the desulfurizer machine should be notified. We discussed that data on overall long-term neurodevelopmental outcomes is overall limited. She vocalized understanding. We reviewed the father of the baby family history of autism. We discussed autism in general with the risk of inheritance. Limitations of testing was reviewed with the patient. They are not interested in further autism testing until the baby is born. 5. Hx of maternal laceration, 4th degree, currently The patient has incontinence for urine, stool and flatulence. She desires a primary . Risk of the cesareanC-section versus risks of a vaginal delivery with a history of 4th degree were reviewed in details. Continue to address route of delivery with the patient. She will be a candidate for a primary due to the significance of her 4th degree. I would also recommend that she has a pelvic floor therapy and be set to see a urogynecologist or colorectal surgeon if her incontinence continues 6. headache in second trimester - magnesium oxide (MAGOX) 400 mg tablet; Take 1 tablet (400 mg total) by mouth in the morning and 1 tablet (400 mg total) before bedtime. Dispense: 30 tablet; Refill: 1 Supportive measures headaches in reviewed 7. Obesity Obesity is a risk factor for adverse outcomes in . These possible complications including increased risks for miscarriage in the first trimester, congenital anomalies, hypertensive disorders of including preeclampsia, diabetes mellitus, demise, and delivery (with subsequent risks of wound infection, wound complications otherwise, and/or VTE). While we do not recommend weight loss during (inadequate weight gain and weight loss are associated with increased risks of growth restriction or SGA), we discussed the importance of a healthy diet and exercise. Her goal for weight gain throughout gestation should be 11-20 pounds. Reviewed aneuploidy testing that could be performed during . I explained that definitive testing can be obtained by an amniocentesis, which has a 1/800 risk of loss. We also discussed noninvasive screening via cell free DNA testing and its limitations. Declined an amniocentesis. Recommendations: Follow up survey for anatomy completion in 4 weeks Serial growth assessments every 4 weeks after the anatomy scan (can be done in OB office) testing to be initiated at 36 weeks with weekly NST and DVP Delivery recommended at or after 39 weeks, earlier as clinically indicated Continue to monitor mood Route of delivery desires primary due to 4th degree laceration history Pelvic floor therapy recommended if she delivers by , recommend medication for VTE prevention (LMWH) during delivery hospitalization. Audit Specialist should be notified about antidepressant use during the Plan reviewed with patient. She vocalized understanding all questions answered. The patient is to continue with routine care in your office Thank you for allowing me to participate in her care. Please contact me if you have any concerns. Cherrie Cornell MD, FACOG (she/hers) Maternal- Medicine [facility] [address] [place] [address] This document was created with [employer] technology. Though I make every effort to review the dictation as it is transcribed, on occasion the spoken word can be misinterpreted by the technology leading to inappropriate words, phrases, or sentences. This note is addressed to the requesting provider as a consultation for clinical guidance. Specific medical abbreviations are occasionally used and those are generally approved by the [place]?Board of?Obstetrics and?Gynecology?as well as?Rodrigue s abbreviations. The above plan of care was based solely on the diagnoses for which a consultation was requested. ?More frequent testing may be indicated based on her other medical/obstetrical conditions. The management of other or medical conditions is beyond the scope of requested consultation and will continue to be followed by the primary air sampling and monitoring or primary care provider. Note to patient: The 21st Century Cures Act makes medical notes like these available to patients in the interest of transparency. However, be advised this is a medical document. It is intended as peer to peer communication. It is written in medical language and may contain abbreviations or verbiage that are unfamiliar. It may appear blunt or direct. Medical documents are intended to carry relevant information, facts as evident, and the clinical opinion of the practitioner. Headache/epigastric pain/blurry vision/swelling? Headaches severe, blurred vision on left Cramping/contractions? no Abnormal vaginal discharge? no Spotting/vaginal bleeding? no Loss of fluid like your water may have broken? no Cats in the home? no Do you change the litter box? Flu vaccine? yes Genetic testing done this here or other office? yes Have you been seen here at [facility] in a previous ? no Recent ER visits or hospitalizations? no Bring blood sugar log or meter with you today? (Please bring them with you for every visit at [facility]) n/a Traveled outside the country in the past 6 month no Any concerns that you would like me to mention to the provider today? no documented in this encounter [facility] Evaluation note Note Date & Type Note Facility Evaluation note Diagnosis 19 weeks gestation of - Primary Mixed anxiety and depressive disorder Dysthymic disorder Depression affecting Anxiety during Hx of maternal laceration, 4th degree, currently with other poor obstetric history headache in second trimester Obesity affecting in second trimester, unspecified obesity type documented in this encounter [facility] Evaluation note Note Date & Type Note Facility Evaluation note Diagnosis Myopia of both eyes- Primary Regular astigmatism of left eye documented in this encounter [facility] Instructions Note Date & Type Note Facility Instructions Not on filedocumented in this en counter [facility] Instructions Attachments Note Date & Type Note Facility Instructions The following attachments cannot be sent through Care Everywhere.Preeclampsia (Amharic)documented in this encounter [facility] Instructions Note Date & Type Note Facility Instructions Not on filedocumented in this en counter [facility] Summary Purpose Family History No Family History [...] section and content) DATE CREATED AUTHOR 05/23/2021 [facility] DATE CREATED AUTHOR AUTHOR'S ORGANIZ ATION 11/12/2021 [facility] DATE CREATED AUTHOR AUTHOR'S ORGANIZ ATION 08/12/2022 [facility] DATE CREATED AUTHOR AUTHOR'S ORGANIZ ATION 08/29/2023 [facility] DATE CREATED AUTHOR AUTHOR'S ORGANIZ ATION 09/03/2023 [facility] DATE CREATED AUTHOR AUTHOR'S ORGANIZ ATION 09/21/2023 [facility] EPIC DATE CREATED AUTHOR AUTHOR'S ORGANIZ ATION 09/23/2023 [facility] Care Teams (unrecognized sec tion and content) Long Chain Quiller Tender Relationship Specialty Start Date End Date Tay Granados MD [address] [place] [address] PCP - General Family Medicine 09/13/22 Roman Tafoya DO [address] [place] [address] PCP - [facility] 09/30/22 Long Chain Quiller Tender Relationship Specialty Start Date End Date Tay Granados MD [address], [place] [address] PCP - General Family Medicine 09/13/22 Roman Tafoya DO [address] [place] [address] PCP - [facility] 09/30/22 Long Chain Quiller Tender Relationship Specialty Start Date End Date Roman Tafoya DO [address] [place] [address] PCP - General Occupational Medicine 04/20/23 Long Chain Quiller Tender Relationship Specialty Start Date End Date Roman Tafoya DO [address] [place] [address] PCP - General Occupational Medicine 04/20/23 Long Chain Quiller Tender Relationship Specialty Start Date End Date Michelet Roman Krishna DO [address] [place] [address] PCP - General Occupational Medicine 04/20/23 Reason for Visit (unrecogniz ed section and content) Reason Comments use of zoloft during Reason Comments Eye Exam FOR RECORDS PERTAINING TO PATIENTS WHO ARE [...] BE BASED ON THE PRIMARY CLINICAL RECORDS. [facility]. provides no warranty or guarantee of the accuracy or completeness of information in this document.
[2023-09-24 20:34] LABS: Basophils Percent Auto 0.3 % (0.2-2.0); Eosinophils Absolute Auto 0.1 10^3/uL (0.0-0.7); Eosinophils Percent Auto 1.3 % (0.9-7.0); Hematocrit 33.4 % (36.0-48.0); Hemoglobin 10.8 g/dL (12.0-16.0); Immature Granulocytes Pct Auto 1.9 % (0.0-0.5); Lymphocytes Absolute Auto 2.1 10^3/uL (1.2-3.8); Lymphocytes Percent Auto 20.5 % (20.5-60.0); Mean Corpuscular HGB Conc 32.3 g/dL (29.9-35.2); Mean Corpuscular Hemoglobin 25.2 pg (26.7-34.0); Mean Platelet Volume 9.5 fL (9.5-13.5); Monocytes Absolute Auto 0.7 10^3/uL (0.3-0.8); Monocytes Percent Auto 6.7 % (1.7-12.0); Neutrophils Absolute Auto 7.1 10^3/uL (1.4-6.5); Neutrophils Percent Auto 69.3 % (43.0-75.0); Platelet Count 269 10^3/uL (150-450); Red Blood Count 4.28 10^6/uL (4.20-5.40); Red Cell Distribution Width 14.2 % (11.0-15.0); White Blood Count 10.3 10^3/uL (4.0-11.0)
[2023-09-24 20:34] LABS: Bilirubin Urine NEGATIVE (NEGATIVE); Blood Urine NEGATIVE (NEGATIVE); Clarity Urine CLEAR (CLEAR); Color Urine LT. YELLOW (YELLOW); Glucose Urine UA NEGATIVE (NEGATIVE); Ketones Urine NEGATIVE (NEGATIVE); Leukocyte Esterase Urine NEGATIVE (NEGATIVE); Nitrite Urine NEGATIVE (NEGATIVE); Protein Urine NEGATIVE (NEG/TRACE); Specific Gravity Urine 1.025 (1.005-1.025); Urobilinogen Urine 0.2 EU/dL (0.2-1.0)
[2023-09-24] MEDS: 0.9 % SODIUM CHLORIDE 1,000 ML 1000 ML IV (20:40)
[2023-09-24 20:42] LABS: Bacteria Urine NONE SEEN #/HPF (NONE SEEN); Mucus Urine NONE SEEN (NONE SEEN); RBC Urine 0-2 #/HPF (0-2); Squamous Epithelial Cell Urine FEW #/LPF (NONE/RARE); Transitional Epi Cells Urine RARE #/LPF (NONE SEEN); WBC Urine 0-2 #/HPF (NONE SEEN)
[2023-09-24 20:43] LABS: Amphetamine Screen Urine NEGATIVE (NEGATIVE); Barbiturates Screen Urine NEGATIVE (NEGATIVE); Benzodiazepines Screen Urine NEGATIVE (NEGATIVE); Buprenorphine Screen Urine NEGATIVE (NEGATIVE); Cannabinoid Screen Urine NEGATIVE (NEGATIVE); Cast Seen? NONE SEEN #/LPF (NONE SEEN); Cocaine Screen Urine NEGATIVE (NEGATIVE); Crystals Seen? None Seen #/HPF (None Seen); Methadone Screen Urine NEGATIVE (NEGATIVE); Methamphetamines Screen Urine NEGATIVE (NEGATIVE); Opiate Screen Urine NEGATIVE (NEGATIVE); Oval Fat Bodies Urine SEEN; Oxycodone Screen Urine NEGATIVE (NEGATIVE); Phencyclidine Screen Urine NEGATIVE (NEGATIVE); Tricyclic Antidepressant Urine NEGATIVE (NEGATIVE); Urine Culture Indicated NO
[2023-09-24] MEDS: CITRIC ACID/SODIUM CITRATE 30 ML SOLUTION ORACIT SHOHL'S SOLN PO (20:49)
[2023-09-24] MEDS: METOCLOPRAMIDE HCL 10 MG/2 ML VIAL IVP (20:49)
[2023-09-24] MEDS: FAMOTIDINE/PF 20 MG/2 ML VIAL IV (20:49)
[2023-09-24] MEDS: CEFAZOLIN SODIUM/DEXTROSE,ISO 2 GM/50 ML PIGGYBACK IV (20:57)
[2023-09-24] MEDS: LACTATED RINGER'S SOLUTION 1,000 ML 50 ML IV (21:20)
--- NOTE | 2023-09-24 21:42 | P.ON_ITS ---
Brief Operative Note Date of procedure: 09/24/23 Pre-op diagnosis general: iup at 38 3/7wks, elective c/s dt ho 4th degree lace ration, active labor Post-op diagnosis: same as pre-op Procedure: NAME OF PROCEDURE: [ section ] PROCEDURE: Patient was taken back to the Operating Room where she was given a spinal anesthesia with Duramorph without difficulty. She was prepped and draped in the normal sterile fashion. A Pfannenstiel skin incision was then made 2 cm above the symphysis pubis and carried down to underlying rectus fascia using a Bovie. The fascia was incised in the midline and extended laterally using Betancourt scissors. Two Brayan clamps were placed on the superior aspect of the fascia and dissected off the underlying rectus muscles. The same was performed on the inferior aspect as well. The muscles were then in the midline. Peritoneum was identified and entered bluntly. The peritoneum was then extended superiorly and inferiorly with good visualization of the bladder. The bladder blade was inserted. A low transverse incision was made on the patient's uterus and extended laterally digitally. The infant was then delivered atraumatically after the bladder blade was removed in the cephalic position. The cord was clamped and cut. Cord blood was obtained. The infant was handed off to awaiting team. The patient's placenta was spontaneously delivered. The uterus was then exteriorized. The uterus was cleared of all clots and debris. The bladder blade was reinserted. The patient's uterine incision was closed using #0 Vicryl in a running lock fashion. Excellent hemostasis was assured. The uterus was then returned to the patient's abdomen. The patient's abdomen was copiously irrigated using warm saline. Peritoneal gutters were cleared of all clots and debris. Again excellent hemostasis was assured. The patient's peritoneum was closed using 3-0 Vicryl in a running fashion. The patient's fascia was closed using #0 Vicryl in a running fashion. The patient's skin was closed using 4-0 Vicryl subcuticularly. The patient tolerated the procedure well. Sponge, lap, and needle counts were correct x2. The patient was taken to the Recovery Room in stable condition. Anesthesia: spinal Surgeon: Rao Guadalupe Lang Path Therapist: Aleisha Davis Estimated blood loss (mL): 575 Pathology: none sent Condition: stable Disposition: floor Urinary Catheter Management Urinary Catheter Management Urethral: Cath placed during this visit: no
--- NOTE | 2023-09-24 21:43 | P.OBPRC_ITS ---
Procedure Pre-op/Post-op diagnoses: Pre-Op/Post-Op Diagnoses Operation Date: 09/24/23 21:25 <No data on this case meets the specified criteria> Procedure: Procedures Operation Date: 09/24/23 21:25 Actual Procedure Side Surgeon p Not Applicable Rao Guadalupe DO Supply Chain Program Manager: Aleisha Davis Estimated blood loss (mL): 575 Disposition: PACU Anesthesia type: Spinal
[2023-09-25] VITALS (8 sets, daily range): BP systolic 97–106; BP diastolic 56–64; PULSE 66–72; TEMP 36.4–36.7
[2023-09-25] MEDS: KETOROLAC TROMETHAMINE 30 MG/ML VIAL IVP ×2 (00:22→06:43)
[2023-09-25] MEDS: CEFAZOLIN SODIUM/DEXTROSE,ISO 2 GM/50 ML PIGGYBACK IV (02:09)
[2023-09-25] MEDS: ACETAMINOPHEN 500 MG TABLET 1000 MG PO ×3 (02:09→14:14)
[2023-09-25] MEDS: OXYTOCIN/0.9 % SODIUM CHLORIDE 20 UNITS/1,000 ML PLAST..BAG 125 UNIT IV (02:22)
[2023-09-25 06:21] LABS: Basophils Percent Auto 0.2 % (0.2-2.0); Hemoglobin 9.9 g/dL (12.0-16.0); Immature Granulocytes Pct Auto 0.7 % (0.0-0.5); Lymphocytes Absolute Auto 1.6 10^3/uL (1.2-3.8); Lymphocytes Percent Auto 11.2 % (20.5-60.0); Mean Corpuscular HGB Conc 31.9 g/dL (29.9-35.2); Mean Corpuscular Hemoglobin 25.3 pg (26.7-34.0); Mean Corpuscular Volume 79.1 fL (81.0-99.0); Mean Platelet Volume 9.7 fL (9.5-13.5); Monocytes Absolute Auto 0.5 10^3/uL (0.3-0.8); Monocytes Percent Auto 3.4 % (1.7-12.0); Neutrophils Absolute Auto 12.1 10^3/uL (1.4-6.5); Neutrophils Percent Auto 84.5 % (43.0-75.0); Platelet Count 253 10^3/uL (150-450); Red Blood Count 3.92 10^6/uL (4.20-5.40); Red Cell Distribution Width 14.3 % (11.0-15.0); White Blood Count 14.3 10^3/uL (4.0-11.0)
[2023-09-25] MEDS: DOCUSATE SODIUM 100 MG CAPSULE PO ×2 (08:14→20:21)
[2023-09-25] MEDS: ENOXAPARIN SODIUM 40 MG/0.4 ML SYRINGE SUBQ (08:14)
--- NOTE | 2023-09-25 08:16 | P.OBPN_ITS ---
OB - PN: Subj Subjective Patient comments: no complaints and pain well controlled status: doing well Exam Constitutional Vital Signs, click to edit/add: Last Vital Signs Temp 97.8 F 09/25/23 04:47 Pulse 67 09/25/23 08:14 Resp 15 09/24/23 22:22 BP 99/57 09/25/23 08:14 Pulse Ox 97 09/24/23 22:22 O2 Del Method Room Air 09/25/23 04:34 Documenting provider has reviewed patient's vital signs: yes Common normals: no apparent distress Respiratory Common normals: clear to auscultation bilaterally Cardio Common normals: regular rate and regular rhythm GI Common normals: Normal to inspection, nondistended, normoactive bowel sounds present Extremity Common normals: no calf tenderness Results Labs Labs: Short CBC 09/24/23 09/25/23 Range/Units 20:23 06:05 WBC 10.3 14.3 H (4.0-11.0) 10^3/uL Hgb 10.8 L 9.9 L (12.0-16.0) g/dL Hct 33.4 L 31.0 L (36.0-48.0) % Plt Count 269 253 (150-450) 10^3/uL Urine 09/24/23 Range/Units 19:30 Urine Color Lt. yellow (YELLOW) Urine Clarity Clear (CLEAR) Urine pH 6.0 (5.0-9.0) Ur Specific [place] 1.025 (1.005-1.025) Urine Protein Negative (NEG/TRACE) mg/dL Urine Glucose (UA) Negative (NEGATIVE) mg/dL Urinary Catheter Management Urinary Catheter Management Urethral: Cath placed during this visit: no OB - PN: A/P Plan - day: 1 Plan: routine postop care Time Spent with Patient Time: Total time spent is greater than 50% in coordination of care (as documented) at patient's floor/unit and/or counseling patient: Total time spent with greater than 50% in coordination of care (as documented) at patient's floor/unit and/or counseling patient: less than 15 minutes
[2023-09-25] MEDS: IBUPROFEN 400 MG TABLET 800 MG PO ×2 (12:11→20:22)
[2023-09-25] MEDS: OXYCODONE HCL/ACETAMINOPHEN 5MG/325MG 1 TAB PO (20:26)
[2023-09-26] MEDS: OXYCODONE HCL/ACETAMINOPHEN 5MG/325MG 1 TAB PO ×2 (01:36→23:55)
[2023-09-26 01:50] VITALS: BP 95/52; PULSE 73; TEMP 36.4
[2023-09-26] MEDS: IBUPROFEN 400 MG TABLET 800 MG PO ×3 (04:05→20:39)
--- NOTE | 2023-09-26 07:46 | PM.OBPN ---
OB - PN: Subj Subjective Patient comments: no complaints and pain well controlled [place] status: doing well Exam Constitutional Vital Signs, click to edit/add: Last Vital Signs Temp 97.6 F 09/26/23 01:50 Pulse 73 09/26/23 01:50 Resp 16 09/25/23 16:20 BP 95/52 09/26/23 01:50 Pulse Ox 97 09/24/23 22:22 O2 Del Method Room Air 09/26/23 01:50 Documenting provider has reviewed patient's vital signs: yes Common normals: no apparent distress Respiratory Common normals: normal respiratory effort and clear to auscultation bilaterally Cardio Common normals: regular rate and regular rhythm GI Common normals: Normal to inspection, nondistended, normoactive bowel sounds present Extremity Common normals: no clubbing, cyanosis or edema and no calf tenderness Urinary Catheter Management Urinary Catheter Management Urethral: Cath placed during this visit: no OB - PN: A/P Plan - day: 2 Plan: routine postop care Time Spent with Patient Time: Total time spent is greater than 50% in coordination of care (as documented) at patient's floor/unit and/or counseling patient: Total time spent with greater than 50% in coordination of care (as documented) at patient's floor/unit and/or counseling patient: less than 15 minutes
[2023-09-26] MEDS: DOCUSATE SODIUM 100 MG CAPSULE PO ×2 (08:25→20:39)
[2023-09-26] MEDS: ENOXAPARIN SODIUM 40 MG/0.4 ML SYRINGE SUBQ (08:25)
[2023-09-26] MEDS: OXYCODONE HCL/ACETAMINOPHEN 5MG/325MG 2 TAB PO ×3 (08:25→18:13)
[2023-09-26 09:19] VITALS: BP 117/62; PULSE 85
[2023-09-26 09:20] VITALS: PULSE 85; TEMP 37.2
--- NOTE | 2023-09-26 12:04 | PC.NURSE ---
Reviewed feeding and outputs as well as expected weight loss. Parents voice understanding of expected normals and feel very comfortable with feeding frequently, watching for wets and stool diapers (recording as needed). States has no desire to offer formula for as suggested as possibility by PEDS if weight drops to 9% of loss. Mother is confident in ability to nurse well and states milk starting to come in, breast feeling alicia and she is swallowing more . Aware LC is available for support as needed.
[2023-09-26 18:08] VITALS: PULSE 75; TEMP 37
[2023-09-26 18:11] VITALS: BP 107/65; PULSE 75
[2023-09-26 23:55] VITALS: BP 111/65; PULSE 75
[2023-09-27] MEDS: IBUPROFEN 400 MG TABLET 800 MG PO (04:54)
[2023-09-27] MEDS: OXYCODONE HCL/ACETAMINOPHEN 5MG/325MG 1 TAB PO ×2 (04:55→11:22)
--- NOTE | 2023-09-27 07:29 | PM.OBPN ---
OB - PN: Subj Subjective Patient comments: no complaints [place] status: doing well feeding status: exclusively Exam Constitutional Vital Signs, click to edit/add: Last Vital Signs Temp 98.6 F 09/26/23 18:08 Pulse 75 09/26/23 23:55 Resp 16 09/26/23 23:55 BP 111/65 09/26/23 23:55 Pulse Ox 97 09/24/23 22:22 O2 Del Method Room Air 09/26/23 23:55 Common normals: no apparent distress Exam limitations: altered mental status General appearance: cooperative Orientation/consciousness: Yes awake, Yes oriented to person, Yes oriented to place and Yes oriented to time HENMT Common normals: normocephalic Head and scalp: normal to inspection Eye Common normals: EOMs intact bilaterally General eye: normal appearance of both eyes Neck & C-Spine Common normals: full ROM and no lymphadenopathy Lymph Lymphatic: no lymphadenopathy noted Respiratory Common normals: normal respiratory effort Effort & inspection: able to speak in complete sentences Auscultation: clear to auscultation bilaterally Cardio Common normals: regular rate and regular rhythm Rate: regular rate Rhythm: regular rhythm GI Common normals: Normal to inspection, nondistended, normoactive bowel sounds present Inspection: normal to inspection Auscultation: normoactive bowel sounds Palpation: soft Common normals: no CVA tenderness Back & Pelvis Common normals: no CVA tenderness Extremity Common normals: normal to inspection General: normal exam except as noted Neuro Common normals: oriented x3 Sensorium/orientation: awake, alert, oriented to person, oriented to place and oriented to time Psych Common normals: mental status grossly normal and thought process normal Attitude: calm Urinary Catheter Management Urinary Catheter Management Urethral: Cath placed during this visit: no OB - PN: A/P Plan - day: 3 Plan: discharge home Time Spent with Patient Time: Total time spent is greater than 50% in coordination of care (as documented) at patient's floor/unit and/or counseling patient: Total time spent with greater than 50% in coordination of care (as documented) at patient's floor/unit and/or counseling patient: less than 15 minutes
[2023-09-27 08:05] VITALS: BP 113/64; PULSE 74
[2023-09-27] MEDS: DOCUSATE SODIUM 100 MG CAPSULE PO (08:07)
[2023-09-27] MEDS: ENOXAPARIN SODIUM 40 MG/0.4 ML SYRINGE SUBQ (08:07)
[2023-09-27 08:10] VITALS: TEMP 36.7
== END 2023-09-27 12:00 | disposition home or self-care (01) | DRG 788 ==
PROVIDERS: Admitting Provider Obstetrics & Gynecology; PCP Family Medicine; Visit Provider Obstetrics & Gynecology
PROC: 10D00Z1 Extraction of Products of Conception, Low, Open Approach (ICD-10-PCS; CPT 59514; principal; 2023-09-24 21:25)
DX: O75.89 Other specified complications of labor and delivery (principal); Z87.59 Personal history of other complications of pregnancy, childbirth and the puerperium; Z3A.38 38 weeks gestation of pregnancy; Z37.0 Single live birth; O99.344 Other mental disorders complicating childbirth; F41.9 Anxiety disorder, unspecified; F32.9 Major depressive disorder, single episode, unspecified; Z23 Encounter for immunization; Z87.891 Personal history of nicotine dependence; Z79.899 Other long term (current) drug therapy
CPT/HCPCS: 36415; 59025; 59050; 80307; 81001; 85025; 86850; 86900; 86901; 94667; 94668; 96372; 96374; 96375; J0665; J0690; J1200; J1650; J1885; J2274; J2371; J2405; J2590; J2765

== ENCOUNTER 2024-05-13 20:49 | Outpatient (OUT) | payer BC, MEDICAID, SELFPAY ==
--- OUTSIDE RECORDS SUMMARY | 2024-05-13 20:52 | XMS_ITS | CCD ---
Author Organization [facility] Care Team Providers Care Material Control Manager Name Role Phone DIAZ .YADI Consulting Unavailable FURLONG, DR TAY Krishna Primary Care Unavailable DIAZ ., YADI Attending Unavailable DIAZ ., YADI Admitting Unavailable ANAYELI ., DR FROST Consulting Unavailable FURLONG, DR TAY Krishna Primary Care Unavailable ANAYELI ., DR FROST Attending Unavailable ANAYELI ., DR FROST Admitting Unavailable ZIEBER, DR VILMA Webb Consulting Unavailable [place], DR BEBO Chowdhury Consulting Unavailable FURLONG, DR TAY Krishna Primary Care Unavailable ANAYELI ., DR FROST Attending Unavailable ANAYELI ., DR FROST Admitting Unavailable ANAYELI ., DR FROST Consulting Unavailable IAIN, MONTRELL Consulting Unavailable FURLONG, DR TAY Krishna Primary Care Unavailable IAIN, MONTRELL Attending Unavailable IAIN, MONTRELL Admitting Unavailable ANAYELI ., DR FROST Consulting Unavailable FURLONG, DR TAY Krishna Primary Care Unavailable ANAYELI ., DR FROST Attending Unavailable ANAYELI ., DR FROST Admitting Unavailable FURLONG, DR TAY Krishna Primary Care Unavailable ANAYELI ., DR FROST Attending Unavailable ANAYELI ., DR FROST Admitting Unavailable PAY ., DR GARLAND Consulting Unavailable PAY ., DR GARLAND Attending Unavailable PAY ., DR GARLAND Admitting Unavailable FURLONG, DR TAY Krishna Primary Care Unavailable ANAYELI ., DR FROST Consulting Unavailable FURLONG, DR TAY Krishna Primary Care Unavailable ANAYELI ., DR FROST Attending Unavailable ANAYELI ., DR FROST Admitting Unavailable HILLARY MURPHY Consulting Unavailable LORENZO GARZA Consulting Unavailable ANAYELI ., DR FROST Procedure Practitioner Unavail able ZIEBER, DR VILMA Webb Consulting Unavailable REQUEST, DR ISSA LISTED Primary Care Unavaila ble DIAZ ., YADI Attending Unavailable DIAZ ., YADI Admitting Unavailable DIAZ ., YADI Consulting Unavailable ANAYELI ., DR FROST Consulting Unavailable FURLONG, DR TAY Krishna Primary Care Unavailable ANAYELI ., DR FROST Attending Unavailable ANAYELI ., DR FROST Admitting Unavailable ANAYELI ., DR FROST Consulting Unavailable FURLONG, DR TAY Krishna Primary Care Unavailable ANAYELI ., DR FROST Attending Unavailable ANAYELI ., DR FROST Admitting Unavailable ANAYELI ., DR FROST Consulting Unavailable FURLONG, DR TAY Krishna Primary Care Unavailable ANAYELI ., DR FROST Attending Unavailable ANAYELI ., DR FROST Admitting Unavailable ANAYELI ., DR FROST Consulting Unavailable FURLONG, DR TAY Krishna Primary Care Unavailable ANAYELI ., DR FROST Attending Unavailable ANAYELI ., DR FROST Admitting Unavailable ZIEBER, DR VILMA Webb Consulting Unavailable DIAZ ., YADI Consulting Unavailable FURLONG, DR TAY Krishna Primary Care Unavailable ANAYELI ., DR FROST Attending Unavailable ANAYELI ., DR FROST Admitting Unavailable Furlong Tay ZEE Primary Care Provider [phone] Elias Tafoya DO Unavailable Elias Tafoya DO Primary Care Provider LORIE JOHNSON Referring Unavailable IAIN, MONTRELL L Primary Care Unavailable Iain CHEESE COOK-ASSISTANT CASINO SHIFT MANAGER, Montrell L Primary Care Provider KAYLA GUADALUPEY Attending Unavailable DIAZ, YADI Attending Unavailable ANAYELIKAYLAY Attending Unavailable DIAZ, YADI Attending Unavailable ANAYELIKAYLAY Attending Unavailable ANAYELIKAYLAY Attending Unavailable ANAYELIKAYLAY Attending Unavailable ANAYELIKAYLAY Attending Unavailable ANAYELIKAYLAY Attending Unavailable DIAZ, YADI Attending Unavailable ANAYELI, RAO Attending Unavailable MICHAEL PARKER C Attending Unavailable IAIN, MONTRELL L Referring Unavailable IAIN, MONTRELL L Primary Care Unavailable KASTEL, LASHONDA D Attending Unavailable IAIN, MONTRELL L Referring Unavailable IAIN, MONTRELL L Primary Care Unavailable KASTEL, LASHONDA D Attending Unavailable IAIN, MONTRELL L Referring Unavailable IAIN, MONTRELL L Primary Care Unavailable KASTEL, LASHONDA D Attending Unavailable IAIN, MONTRELL L Referring Unavailable IAIN, MONTRELL L Primary Care Unavailable IAIN, MONTRELL L Referring Unavailable IAIN, MONTRELL L Primary Care Unavailable MANUEL WERNER Attending Unavailable IAIN, MONTRELL L Referring Unavailable IAIN, MONTRELL L Primary Care Unavailable ALPHONSOMANUEL VALENCIA Attending Unavailable IAIN, MONTRELL L Referring Unavailable IAIN, MONTRELL L Primary Care Unavailable IAIN, MONTRELL L Attending Unavailable IAIN, MONTRELL L Referring Unavailable IAIN, MONTRELL L Primary Care Unavailable IAIN, MONTRELL L Referring Unavailable IAIN, MONTRELL L Primary Care Unavailable MARA ARNOLD Attending Unavailable YADI YO Referring Unavailable IAIN, MONTRELL L Primary Care Unavailable MARA ARNOLD Referring Unavailable IAIN, MONTRELL L Primary Care Unavailable MARA ARNOLD Referring Unavailable IAIN, MONTRELL L Primary Care Unavailable IAIN, MONTRELL L Attending Unavailable IAIN, MONTRELL L Referring Unavailable IAIN, MONTRELL L Primary Care Unavailable DERIKMAUGUSTINA Attending Unavailable IAIN, MONTRELL L Referring Unavailable IAIN, MONTRELL L Primary Care Unavailable IAIN, MONTRELL L Attending Unavailable IAIN, MONTRELL L Referring Unavailable IAIN, MONTRELL L Primary Care Unavailable ALAMAUGUSTINA Attending Unavailable IAIN, MONTRELL L Referring Unavailable IAIN, MONTRELL L Primary Care Unavailable ELIAS TAFOYA Primary Care Unavailable AVILABEBO CHRISTINE Admitting Unavailable ERIKA HOGAN Attending Unavaila ELIAS Riley Primary Care Unavailable ANAYELI, RAO R Referring Unavailable IAIN, MONTRELL L Primary Care Unavailable IAIN, MONTRELL L Referring Unavailable IAIN, MONTRELL L Primary Care Unavailable ANAYELI, RAO R Referring Unavailable IAIN, MONTRELL L Primary Care Unavailable ANAYELI, RAO R Referring Unavailable IAIN, MONTRELL L Primary Care Unavailable LORIE JOHNSON Attending Unavailable IAIN, MONTRELL L Referring Unavailable IAIN, MONTRELL L Primary Care Unavailable ANAYELI, RAO R Referring Unavailable IAIN, MONTRELL L Primary Care Unavailable ROMAN CORNELL Attending Unavailable ANAYELI, RAO R Referring Unavailable IAIN, MONTRELL L Primary Care Unavailable BEBO AVILA Admitting Unavailable AVILABEBO Attending Unavailable IAIN, MONTRELL L Primary Care Unavailable ANAYELI, RAO R Referring Unavailable IAIN, MONTRELL L Primary Care Unavailable ANAYELI, RAO R Referring Unavailable IAIN, MONTRELL L Primary Care Unavailable LORIE JOHNSON Attending Unavailable IAIN, MONTRELL L Referring Unavailable IAIN, MONTRELL L Primary Care Unavailable IAIN, MONTRELL L Referring Unavailable IAIN, MONTRELL L Primary Care Unavailable IAIN, MONTRELL L Referring Unavailable IAIN, MONTRELL L Primary Care Unavailable MARI ARORA Attending Unavailable IAIN, MONTRELL L Referring Unavailable IAIN, MONTRELL L Primary Care Unavailable IAIN, MONTRELL L Referring Unavailable IAIN, MONTRELL L Primary Care Unavailable MARI ARORA Admitting Unavailable MARI ARORA Attending Unavailable IAIN, MONTRELL L Primary Care Unavailable GRACE GONSALEZ Attending Unavailable IAIN, MONTRELL L Primary Care Unavailable MARI ARORA Attending Unavailable IAIN, MONTRELL L Referring Unavailable IAIN, MONTRELL L Primary Care Unavailable IAIN, MONTRELL L Referring Unavailable IAIN, MONTRELL L Primary Care Unavailable ROMAN CORNELL Attending Unavailable ANAYELI, RAO R Referring Unavailable STEVEN TAFOYAONY G Primary Care Unavailable ANAYELI, RAO R Referring Unavailable JANAY ELIAS G Primary Care Unavailable YANN CAO Attending Unavailable ELIAS TFAOYA G Referring Unavailable TESMOND, ELIAS G Primary Care Unavailable IAIN, MONTRELL L Referring Unavailable IAIN, MONTRELL L Primary Care Unavailable Allergies Allergy Classification Reported Allergen(s) Allergy Type Date of Onset Reaction(s) Facility (1 source) Penicillins Propensity to adverse reactions to drug 09-14-2016 [facility] Medications Current Medications Medication Drug Class(es) Dates Sig (Normalized) Sig (Original) amoxicillin 875 mg oral tablet (1 source) Penicillin-class Antibacterial Start: 01-28-2024 End: 02-04-2024 take 1 tablet by mouth in the morning, then take 1 tablet by mouth at bedtime amoxicillin (AMOXIL) 875 mg tablet Take 1 tablet (875 mg total) by mouth in the morning and 1 tablet (875 mg total) before bedtime. Do all this for 7 days. 14 tablet 01/28/2024 02/04/2024 Active cranberry fruit (CRANBERRY) 450 mg tablet (11 sources) take 1 tablet by mouth in the morning cranberry fruit (CRANBERRY) 450 mg tablet Take 1 tablet by mouth in the morning. Active escitalopram 20 mg oral tablet (20 sources) Serotonin Reuptake Inhibitor Start: 05-10-2024 End: 06-09-2024 take 1.5 tablets by mouth in the morning escitalopram (LEXAPRO) 20 mg tablet Indications: Anxiety disorder, unspecified type , Recurrent major depressive disorder, in partial remission (CMS-HCC) Take 1.5 tablets (30 mg total) by mouth in the morning for 30 days. 45 tablet 05/10/2024 06/09/2024 Active Start: 05-07-2023 End: 06-08-2024 take 1 tablet by mouth once daily escitalopram (Lexapro) 20 MG tablet Indications: Anxiety, generalized (CMS/HCC) Take 1 tablet (20 mg) by mouth Daily Patient will need to have an appointment prior to needing more refills. 90 tablet 03/10/2024 06/08/2024 Active ibuprofen 400 mg oral tablet (4 sources) Nonsteroidal Anti-inflammatory Drug Start: 09-27-2023 take 2 tablets by mouth every eight hours ibuprofen 400 MG tablet TAKE 2 TABLETS BY MOUTH EVERY 8 HOURS 09/27/2023 Active lactobacillus acidophilus [id number] unt / pectin 10 mg oral capsule (11 sources) take 1 capsule by mouth in the morning acidophilus-pec tin, citrus 100 million cell-10 mg capsule Take 1 capsule by mouth in the morning. Active Magnesium (7 sources) Start: 01-17-2024 End: 01-16-2025 take 1 tablet by mouth once daily magnesium 200 MG tablet Indications: Missed menses Take 1 tablet (200 mg) by mouth Daily 90 tablet 2 01/17/2024 01/16/2025 Active Start: 03-09-2023 End: 03-08-2024 take 1 tablet [...] Active magnesium oxide 400 mg oral tablet (19 sources) Start: 06-22-2023 take 1 tablet by mouth in the morning magnesium oxide (MAGOX) 400 mg tablet Indications: 19 weeks gestation of , headache in second trimester Take 1 tablet by mouth in the morning and 1 tablet before bedtime 30 tablet 2 06/22/2023 Active Start: 05-14-2023 take 1 tablet by lainey th in the morning, then take 1 tablet by mouth at bedtime magnesium oxide (MAGOX) 400 mg tablet Indications: 19 weeks gestation of , headache in second trimester Take 1 tablet (400 mg total) by mouth in the morning and 1 tablet (400 mg total) before bedtime. 30 tablet 1 05/14/2023 Active 24 hr metFORMIN hydrochloride 500 mg extended release oral tablet (6 sources) Biguanide Start: 02-27-2024 End: 02-26-2025 take 1 tablet by mouth every twenty-four hours at mealtime metFORMIN XR (Glucophage-XR) 500 MG 24 hr tablet Indications: Advised about management of weight Take 1 tablet (500 mg) by mouth in the evening. Take with meals Do not crush, chew, or split. 30 tablet 11 02/27/2024 02/26/2025 Active mupirocin 0.02 mg/mg topical ointment (17 sources) RNA Synthetase Inhibitor Antibacterial Start: 12-24-2023 mupirocin (Bactroban) 2 % ointment Apply 1 Application topically in the morning and 1 Application at noon and 1 Application in the evening. 12/24/2023 Active omeprazole 20 mg delayed release oral capsule (20 sources) Proton Pump Inhibitor Start: 03-09-2023 End: 08-19-2024 take 1 capsule by mouth at bedtime omeprazole (PriLOSEC) [address] capsule Indications: Missed menses Take 1 capsule (20 mg) by mouth at bedtime Do not crush or chew. 90 capsule 2 08/20/2023 08/19/2024 Active take 1 tablet by mouth once jayesh y omeprazole (PriLOSEC OTC) 20 mg EC tablet Indications: gastroesophageal reflux disease Take 1 tablet (20 mg total) by mouth nightly Indications: gastroesophageal reflux disease. Active ondansetron 4 mg disintegrating oral tablet (3 sources) Serotonin-3 Receptor Antagonist take 1 tablet by mouth every eight hours as needed for nausea and vomiting ondansetron ODT (ZOFRAN ODT) 4 mg disintegrating tablet Dissolve 1 tablet (4 mg total) on tongue every 8 (eight) hours as needed for nausea or vomiting. 0 Active PLUS, CALCIUM CARB, 27 mg iron- 1 mg tablet (17 sources) Start: 01-31-20 take 1 tablet by mouth in the morning PLUS, CALCIUM CARB, 27 mg iron- 1 mg tablet Indications: Take 1 tablet by mouth in the morning. Indications: a patient who is producing milk and . 01/30/2023 Active Start: 01-30-2023 PLUS, CALCIUM CARB, 27 mg iron- 1 mg tablet 01/30/2023 Active Start: 01-30-2023 PLUS, CALCIUM CARB, 27 mg iron- 1 mg tablet Vit-Fe Fumarate-FA ( Vitamins) 28-0.8 MG tablet (6 sources) Start: 08-20-2023 End: 08-19-2024 take 1 tablet by mouth once daily Vit-Fe Fumarate-FA ( Vitamins) 28-0.8 MG tablet Indications: care in first trimester Take 1 tablet by mouth Daily 90 tablet 2 08/20/2023 08/19/2024 Active Start: 03-15-2023 End: 03-14-2024 take 1 tablet by mouth in the morning Vit-Fe Fumarate-FA ( Vitamins) 28-0.8 MG tablet Indications: care in first trimester Take 1 tablet by mouth in the morning. 30 tablet 11 03/15/2023 03/14/2024 Active progesterone (FIRST-PROGESTERONE VGS) 200 mg suppository (3 sources) Start: 02-05-2023 progesterone (FIRST-PROGESTERONE VGS) 200 mg suppository Insert 1 suppository (200 mg total) into the vagina. 0 02/05/2023 Active sertraline 50 mg oral tablet (5 sources) Serotonin Reuptake Inhibitor Start: 03-09-2023 End: 03-08-2024 take 0.5 tablet by mouth in the morning sertraline (ZOLOFT) 50 mg tablet Take 0.5 tablets (25 mg total) by mouth in the morning. 0 03/09/2023 03/08/2024 Active Completed/Discontinued Medications Medication Drug Class(es) Dates Sig (Normalized) Sig (Original) betamethasone 3 mg/ml / betamethasone acetate 3 mg/ml injectable suspension (1 source) Corticosteroid Start: 03-06-2024 End: 03-06-2024 6 mg, intra-articular, One-Time Injection, Starting on Kimberlee 03/06/24 at 0934, For 1 dose docusate sodium 100 mg oral capsule (4 sources) Start: 03-31-2024 End: 05-09-2024 take 1 capsule by mouth twice daily docusate sodium (COLACE) 100 mg capsule TAKE 1 CAPSULE BY MOUTH 2 TIMES A DAY 03/31/2024 05/09/2024 Discontinued (Therapy completed) norethindrone 0.35 mg oral tablet (7 sources) Start: 11-06-2023 End: 10-07-2024 norethindrone (MICRONOR) 0.35 mg tablet Take 1 tablet (0.35 mg total) by mouth. 11/06/2023 02/14/2024 Discontinued (Therapy completed) oseltamivir 75 mg oral capsule (2 sources) Neuraminidase Inhibitor Start: 05-01-2024 End: 05-09-2024 take 1 capsule by mouth in the morning oseltamivir (TAMIFLU) 75 mg capsule Take 1 capsule (75 mg total) by mouth in the morning. 10 capsule 05/01/2024 05/09/2024 Discontinued (Therapy completed) Problems Active Problems Problem Classification Problem Date Documented Da te Episodic/Chronic Anxiety disorders (20 sources) Mixed anxiety and depressive disorder; Translations: [Other specified anxiety disorders] Onset: 07-01-2015 11-26-2019 Chronic Blindness and vision defects (9 sources) Bilateral myopia of eyes; Translations: [Myopia, bilateral] Onset: 05-23-2023 05-23-2023 Episodic Esophageal disorders (2 sources) Gastro-esophageal reflux disease without esophagitis; Translations: [GERD WITHOUT ESOPHAGITIS] Onset: 08-11-2022 Chronic Genitourinary symptoms and ill-defined conditions (17 sources) Mixed urinary incontinence; Translations: [Mixed incontinence] Onset: 01-14-2024 01-16-2024 Chronic Headache; including migraine (4 sources) Migraine without aura, not refractory ; Translations: [Chronic migraine without aura, not intractable, without status migrainosus] Onset: 03-20-2024 03-24-2024 Chronic Headache; including migraine (1 source) Headache; including migraine; Translations: [Headache, unspecified] Onset: 05-14-2023 Menstrual disorders (4 sources) Irregular menstruation, unspecified; Translations: [IRREGULAR MENSTRUATION UNSPECIFIED] Onset: 01-17-2022 Chronic Mood disorders (3 sources) Recurrent major depression in partial remission; Translations: [Major depressive disorder, recurrent, in partial remission] Onset: 05-10-2024 04-11-2024 Chronic Mood disorders (18 sources) Mood disorders; Translations: [Depression, unspecified] Onset: 03-15-2023 Resolved: 12-13-2023 03-15-2023 OB-related trauma to perineum and vulva (1 source) Fourth degree perineal laceration during delivery; Translations: [FOURTH DEG PERINEAL LAC DUR DELIV] Onset: 08-11-2022 Episodic Other aftercare (1 source) Other intermediate card tender (current) drug therapy; Translations: [OTH PREDATORY GAME HUNTER CURRENT DRUG THERAPY] Onset: 08-11-2022 Episodic Other aftercare (2 sources) Surgical follow-up; Translations: [Encounter for follow-up examination after completed treatment for conditions other than malignant neoplasm] 01-21-2024 Episodic Other complications of ; puerperium affecting [...] Translations: [Obesity complicating , second trimester] Onset: 09-12-2023 Chronic Other complications of (1 source) Obesity complicating , unspecified trimester; Translations: [Obesity complicating , unspecified trimester] Onset: 06-13-2023 Chronic Other complications of (4 sources) Uterine [...] related conditions, second trimester] 05-14-2023 Episodic Other connective tissue disease (3 sources) Pain in right foot; Translations: [Pain in right foot] 02-22-2024 Episodic Other connective tissue disease (3 sources) Pain in left foot; Translations: [Pain in left foot] 02-22-2024 Episodic Other connective tissue disease (1 source) Pain in right foot; Translations: [Pain in right foot] Onset: 02-22-2024 Episodic Other connective tissue disease (1 source) Pain in left foot; Translations: [Pain in left foot] Onset: 02-22-2024 Episodic Other connective tissue disease (1 source) Pain in left hand; Translations: [Pain in left hand] Onset: 03-06-2024 Episodic Other connective tissue disease (1 source) Pain in right hand; Translations: [Pain in right hand] Onset: 03-06-2024 Episodic Other female genital disorders (4 sources) Mittelschmerz; Translations: [MITTELSCHMERZ] Onset: 11-12-2021 Chronic Other gastrointestinal disorders (2 sources) Fecal incontinence with fecal urgency; Translations: [Full incontinence of feces] 01-16-2024 Episodic Other nervous system disorders (17 sources) Carpal tunnel syndrome; Translations: [Carpal tunnel syndrome, unspecified upper limb] Onset: 11-26-2019 11-26-2019 Chronic Other nervous system disorders (1 source) Bilateral carpal tunnel syndrome; Translations: [Carpal tunnel syndrome, bilateral upper limbs] 03-06-2024 Chronic Other nervous system disorders (1 source) Carpal tunnel syndrome of right wrist; Translations: [Carpal tunnel syndrome, right upper limb] 05-09-2024 Chronic Other nervous system disorders (1 source) Carpal tunnel syndrome, bilateral upper limbs; Translations: [Carpal tunnel syndrome, bilateral upper limbs] Onset: 11-26-2019 Chronic Other nervous system disorders (1 source) Numbness Onset: 03-06-2024 Episodic Other nervous system disorders (1 source) Other acute postprocedural pain; Translations: [Other acute postprocedural pain] Onset: 02-26-2024 Episodic Other nutritional; endocrine; and metabolic disorders (1 source) Severe obesity; Translations: [Class 3 severe obesity due to excess calories with serious comorbidity and body mass index (BMI) of 40.0 to 44.9 in adult [place] 05-09-2024 Chronic Other screening for suspected conditions (not mental disorders or infectious disease) (17 sources) Encounter for screening for malignant neoplasm of cervix; Translations: [Encounter for screening, unspecified] Onset: 11-09-2021 Episodic Other skin disorders (3 sources) Ingrowing nail; Translations: [Ingrowing nail] 02-22-2024 Episodic Other skin disorders (1 source) Ingrowing nail; Translations: [Ingrowing nail] Onset: 02-22-2024 Episodic Residual codes; unclassified (2 sources) Sleep apnea, unspecified; Translations: [Sleep apnea, unspecified] Onset: 08-28-2023 Chronic Residual codes; unclassified (15 sources) Obstructive sleep apnea syndrome; Translations: [Obstructive sleep apnea (adult) (pediatric)] Onset: 10-22-2023 10-22-2023 Chronic Residual codes; unclassified (2 sources) Obstructive sleep apnea (adult) (pediatric); Translations: [Obstructive sleep apnea (adult) (pediatric)] Onset: 10-22-2023 Chronic Residual codes; unclassified (1 source) Sleep [...] [19 weeks gestation of ] 05-13-2023 Episodic Residual codes; unclassified (1 source) Pain Onset: 03-06-2024 Episodic Screening and history of mental health and substance abuse codes (1 source) Personal history of nicotine dependence; Translations: [PERSONAL HISTORY OF NICOTINE DEPEND] Onset: 08-11-2022 Episodic Spondylosis; intervertebral disc disorders; other back problems (17 sources) Lumbar spondylosis; Translations: [Spondylosis without myelopathy or radiculopathy, lumbar region] Onset: 05-21-2019 10-08-2019 Chronic Syncope (1 source) Near syncope; Translations: [Syncope and collapse] 05-09-2024 Episodic Unclassified (4 sources) OB Reminders Onset: 07-02-2023 07-02-2023 Unclassified (2 sources) Post-op Onset: 03-13-2024 Unclassified (1 source) Procedure Onset: 04-01-2024 Unclassified (2 sources) New Patient Onset: 02-11-2024 Unclassified (1 source) Ingrown Toenail Onset: 02-22-2024 Unclassified (1 source) Consult Onset: 01-14-2024 Unclassified (1 source) Annual Exam Onset: 12-13-2023 Unclassified (1 source) Sinus Problem Onset: 08-28-2023 Unclassified (1 source) Sleeping Problem Onset: 10-22-2023 Unclassified (1 source) High Risk Gestation Onset: 09-21-2023 Unclassified (1 source) vaginal pressure Onset: 09-17-2023 Unclassified (1 source) Non-stress Test Onset: 09-12-2023 Unclassified (1 source) Problem Onset: 06-07-2023 Unclassified (1 source) Eye Exam Onset: 05-23-2023 Viral infection (1 source) COVID-19; Translations: [COVID-19] Onset: 06-05-2022 Past or Other Problems Problem Classification Problem Date Documented Date Episodic/Chronic Abdominal hernia (10 sources) Incisional hernia; Translations: [Incisional hernia without obstruction or gangrene] Onset: 01-21-2024 01-21-2024 Episodic Abdominal pain (16 sources) Perineal pain; Translations: [Pelvic and perineal pain] Onset: 01-16-2024 01-16-2024 Episodic Asthma (17 sources) Asthma; Translations: [Unspecified asthma, uncomplicated] Onset: 02-13-2005 Resolved: 05-09-2024 11-26-2019 Chronic Conditions associated with dizziness or vertigo (3 sources) Dizziness; Translations: [Dizziness and giddiness] Onset: 06-07-2023 03-24-2024 Episodic Deficiency and other anemia (2 sources) Iron deficiency anemia, unspecified; Translations: [Iron deficiency anemia, unspecified] Onset: 12-13-2023 Episodic Early or threatened labor (1 source) False labor, unspecified; Translations: [False labor, unspecified] Onset: 09-17-2023 Episodic Genitourinary symptoms and ill-defined conditions (3 sources) Increased frequency of urination; Translations: [Frequency of micturition] Onset: 01-14-2024 01-16-2024 Episodic Immunizations and screening for infectious disease (2 sources) Contact with and (suspected) exposure to infections with a predominantly sexual mode of transmission; Translations: [Encounter for screening for human papillomavirus (HPV)] Onset: 04-21-2022 Episodic Malaise and fatigue (2 sources) Other fatigue; Translations: [Other fatigue] Onset: 08-28-2023 Episodic Mycoses (4 sources) Onychomycosis; Translations: [Tinea unguium] Onset: 06-04-2023 06-04-2023 Episodic Other complications of (5 sources) Obesity; Translations: [Obesity complicating , unspecified trimester] Onset: 09-12-2023 Resolved: 09-24-2023 10-01-2023 Chronic Other complications of (1 source) Maternal care for other abnormalities of pelvic organs, first trimester; Translations: [MAT CARE OTH ABN PELV ORGAN 1ST TRI] Onset: 01-02-2022 Episodic Other complications of (20 sources) History of fourth degree perineal laceration; Translations: [Supervision of with other poor reproductive or obstetric history, unspecified trimester] Onset: 05-14-2023 Resolved: 01-16-2024 05-14-2023 Episodic Other complications of (4 sources) High risk ; Translations: [Supervision of high risk , unspecified, third trimester] Onset: 09-12-2023 Resolved: 09-24-2023 10-01-2023 Episodic Other complications of (1 source) Supervision [...] NONINFLAMMATORY D/O VAGINA] Onset: 04-20-2022 Episodic Other lower respiratory disease (1 source) Snoring; Translations: [Snoring] Onset: 08-28-2023 Episodic Other and delivery including normal (20 sources) Encounter for routine follow-up; Translations: [Single live ] Onset: 01-17-2022 Resolved: 09-24-2023 Episodic Other upper respiratory infections (3 sources) Acute frontal sinusitis; Translations: [Acute frontal sinusitis, unspecified] Onset: 08-20-2023 01-28-2024 Episodic Ovarian cyst (1 source) Other ovarian cyst, right side; Translations: [OTHER OVARIAN CYST RIGHT SIDE] Onset: 11-15-2021 Episodic Poisoning by nonmedicinal substances (17 sources) Toxic effect of other specified gases, [...] weeks gestation of ] Onset: 05-14-2023 Episodic Spondylosis; intervertebral disc disorders; other back problems (20 sources) Disorder of sacrum; Translations: [Sacrococcygeal disorders, not elsewhere classified] Onset: 04-24-2019 04-24-2019 Episodic Results Test Name Value Interpretation Reference Range Facility COMPREHENSIVE METABOLIC PANE [facility] 05-09-2024 Albumin [Mass/Vol] 4.1 g/dL Normal 3.2-5.3 [facility] Comment on above: Performed By: #### C BCA, CMP #### [facility] ([id number]) [address], [address] [place] [address] ALP [Catalytic activity/Vol] 108 U/L Normal 39-130 [facility] Comment on above: Performed By: #### C BCA, CMP #### [facility] ([id number]) [address], [address] [place] [address] ALT [Catalytic activity/Vol] 32 U/L High 0-31 [facility] Comment on above: Performed By: #### C BCA, CMP #### [facility] ([id number]) [address], [address] [place] [address] Anion gap [Moles/Vol] 9 mmol/L Normal 5-15 [facility] Comment on above: Performed By: #### C BCA, CMP #### [facility] ([id number]) [address], [address] [place] [address] AST [Catalytic activity/Vol] 30 U/L Normal 0-41 [facility] Comment on above: Performed By: #### C BCA, CMP #### [facility] ([id number]) [address], [address] [place] [address] Bilirubin [Mass/Vol] 0.3 mg/dL Normal 0.3-1.[address] [facility] Comment on above: Performed By: #### C BCA, CMP #### [facility] ([id number]) [address], [address] [place] [address] Calcium [Mass/Vol] 8.9 mg/dL Normal 8.5-10.5 [facility] Comment on above: Performed By: #### C BCA, CMP #### [facility] ([id number]) [address], [address] [place] [address] Chloride [Moles/Vol] 105 mmol/L Normal 98-[address] [facility] Comment on above: Performed By: #### C BCA, CMP #### [facility] ([id number]) [address] [place] [address] CO2 [Moles/Vol] 25 mmol/L Normal 22-32 [facility] Comment on above: Performed By: #### C BCA, CMP #### [facility] ([id number]) [address] [place] [address] Creatinine [Mass/Vol] 0.78 mg/dL Normal 0.40-1.00 [facility] Comment on above: Result Comment: METH OD TRACEABLE TO IDMS STANDARD Performed By: #### C BCA, CMP #### [facility] ([id number]) [address] [place] [address] eGFR (CKD-EPI) NON-RACE DEPENDENT >90 Normal >59 [facility] Comment on above: Result Comment: Reported eGFR is based on the CKD-EPI 2020 equation that does not use a race coefficient. Performed By: #### C BCA, CMP #### [facility] ([id number]) [address] [place] [address] Glucose [Mass/Vol] 98 mg/dL Normal 65-99 [facility] Comment on above: Performed By: #### C BCA, CMP #### [facility] ([id number]) [address], [address] [place] [address] Potassium [Moles/Vol] 4.2 mmol/L Normal 3.5-5.0 [facility] Comment on above: Performed By: #### C BCA, CMP #### [facility] ([id number]) [address], [address] [place] [address] Protein [Mass/Vol] 7.0 g/dL Normal 6.0-8.0 [facility] Comment on above: Performed By: #### C BCA, CMP #### [facility] ([id number]) [address], [address] [place] [address] Sodium [Moles/Vol] 139 mmol/L Normal 134-146 [facility] Comment on above: Performed By: #### C BCA, CMP #### [facility] ([id number]) [address], [address] [place] [address] Urea nitrogen [Mass/Vol] 9 mg/dL Normal 5-23 [facility] Comment on above: Performed By: #### C BCA, CMP #### [facility] ([id number]) [address], [address] [place] [address] POCT EKGOrdered By: Mari santana on 05-09-2024 [facility] Work Phone: MR BRAIN WO CONTon MR BRAIN WO CONT MR BRAIN WO CONT MR BRAIN WO CONT HISTORY: Chronic headache, blurry vision and dizziness. COMPARISON: None. TECHNIQUE: Multisequence, multiplanar MR images of the brain were obtained without intravenous contrast. FINDINGS: No evidence of acute infarct, intracranial hemorrhage, mass effect, midline shift or extra-axial fluid. Ventricles, sulci and cistern are unremarkable. Brain volume is age appropriate. No significant parenchymal signal abnormality. Globes and orbits are unremarkable. Mild mucosal thickening of the maxillary alveolar recesses. Temporal bones are clear. Major intracranial flow voids are unremarkable, limited by technique. Mild left nasal septal deviation. IMPRESSION: No acute intracranial abnormality by MRI. Approved by Resident Benja Cruz MD on 04/14/2024 7:49 AM I, Bony Monte have personally reviewed the image(s) and agree with and/or edited the report Finalized by Bony Monte on 04/14/2024 9:03 AM Normal [facility] $ Carpal Tunnel Injection: R carpal tunnelon 03-06-2024 Mara Arnold MD 03/07/2024 1:06 PM $ Carpal Tunnel Injection: R carpal tunnel on 03/06/2024 9:34 AM Indications: pain Details: 25 G needle, volar approach Medications: 6 mg betamethasone acet & sod phos 6 mg/mL Outcome: tolerated well, no immediate complications The patient was instructed to use ice, NSAIDs, or Tylenol for pain as needed. Patient was also educated on possibility for blood glucose elevation following the injection. The patient will call with any signs or concerns. Procedure, treatment alternatives, risks and benefits explained, specific risks discussed. Consent was given by the patient. Patient was prepped and draped in the usual sterile fashion. MANUALLY TRANSCRIBED [facility] Viewson Three views left watts d taken today. PA, oblique, lateral. No comparison films. No acute osseous abnormalities. No evidence of advanced osteoarthritis. Impression: Atraumatic left hand films. MANUALLY TRANSCRIBED RESULTS [facility] Radiology Study observation (narrative) [facility] Polar Rose XR Hand - right 3 Viewson Three views right hand taken today. PA, oblique, lateral. No comparison films. No acute osseous abnormalities. No evidence of advanced osteoarthritis. Impression: Atraumatic right hand films. MANUALLY TRANSCRIBED RESULTS [facility] Radiology Study observation (narrative) [facility] HCG ( test) Ql (U)o n 02-26-2024 Beta HCG ( test) Ql (U) Negative Normal NEG [facility] Comment on above: Performed By: #### C BCA, CMP #### [facility] ([id number]) [address], [address] [place] [address] CT ABDOMEN AND PELVIS W WO C ONTon 02-07-2024 CT ABDOMEN AND PELVIS W WO CONT CT ABDOMEN AND PELVIS W WO CONT History: Incisional hernia without obstruction or gangrene Exam/Technique: CT images of abdomen and pelvis were obtained with and without intravenous contrast injection. CT does automated exposure control was utilized. All CT scans at this facility use dose modulation, iterative reconstruction, and/or weight based dosing when appropriate to reduce radiation dose to as low as reasonably achievable. Comparison: No relevant prior studies available. Findings: Lung bases are clear. Cirrhotic liver parenchyma. Gallbladder is grossly unremarkable with no bile duct dilatation. There is mild prominence of the spleen which measures about 14 cm longitudinal diameter. Pancreas and adrenal glands are unremarkable. Both kidneys are unremarkable. There is 3.5 x 2.9 cm diastases of the rectus sheath at the level of section surgical incision and pelvic inlet with fat and mesentery through the hernial sac. There is a small size umbilical hernia with only fat through the hernial sac. Bowel loops are unremarkable. There is no free peritoneal air or fluid. Urinary bladder is decompressed. Uterus is grossly unremarkable. Portal and mesenteric vessels are widely patent. IMPRESSION: Moderate-sized incisional hernia with 3.5 x 2.9 cm diastases of the rectus sheath at the level of pelvic inlet and surgical incision. Pain that contains only fat and mesentery. There is small size umbilical hernia. The remaining exam is unremarkable. Finalized by Evaristo Barboza MD on 02/07/2024 6:30 AM Normal [facility] Measure post void residualon 01-14-2024 Volume 0 ml [facility] POCT urinalysis dipstick onl yon 01-14-2024 Appearance (U) Clear [facility] External Poct Urine Blood Negative [facility] External Poct Urine Color Yellow [facility] External Poct Urine Glucose Negative [facility] External Poct Urine Ketones Negative [facility] External Poct Urine Leukocyte Esterase Negative [facility] External Poct Urine Nitrite Negative [facility] External Poct Urine Ph 6 [facility] External Poct Urine Protein Negative [facility] CBC AND AUTO DIFFon 12-13-19 ABSOLUTE BASOPHIL 0.0 X10E9/L Normal 0.0-0.2 [facility] Comment on above: Performed By: #### C BCA, CMP, 63338-6, TSHR #### [facility] ([id number]) [address], [address] [place] [address] ABSOLUTE NEUTROPHIL 4.9 X10E9/L Normal 1.5-6.[address] [facility] Comment on above: Performed By: #### C SHANTELL BANKS, 02220-9, TSHR #### [facility] ([id number]) [address], [address] [place] [address] Basophils/100 WBC (Bld) 0.6 % Normal [facility] Comment on above: Performed By: #### C SHANTELL BANKS, 35271-6, TSHR #### [facility] ([id number]) [address], [facility] [address] [place] [address] Eosinophils (Bld) [#/Vol] 0.2 10*3/uL Normal 0.0-0.4 [facility] Comment on above: Performed By: #### Ankit BANKS CMP, 70284-1, TSHR #### [facility] ([id number]) [address], [address] [place] [address] Eosinophils/100 WBC (Bld) 2.7 % Normal [facility] Comment on above: Performed By: #### Ankit BANKS CMP, 43956-3, TSHR #### [facility] ([id number]) [address], [address] [place] [address] Erythrocyte distribution width (RBC) [Ratio] 15.5 % High 11.5-15.0 [facility] Comment on above: Performed By: #### C SHANTELL BANKS, 86553-3, TSHR #### [facility] ([id number]) [address], [address] [place] [address] Hematocrit (Bld) [Volume fraction] 37.3 % Normal 35-47 [facility] Comment on above: Performed By: #### Ankit BANKS CMP, 70600-1, TSHR #### [facility] ([id number]) [address], [address] [place] [address] Hemoglobin (Bld) [Mass/Vol] 11.9 g/dL Normal 11.7-15.5 [facility] Comment on above: Performed By: #### C SHANTELL BANKS, 56396-8, TSHR #### [facility] ([id number]) [address], [address] [place] [address] Lymphocytes (Bld) [#/Vol] 2.0 10*3/uL Normal 1.0-3.5 [facility] Comment on above: Performed By: #### C SHANTELL BANKS, 16813-3, TSHR #### [facility] ([id number]) [address], [facility] [address] [place] [address] Lymphocytes/100 WBC (Bld) 26.7 % Normal [facility] Comment on above: Performed By: #### C SHANTELL BANKS, 28062-5, TSHR #### [facility] ([id number]) [address] [place] [address] MCH (RBC) [Entitic mass] 24.3 pg Low 27-34 [facility] Comment on above: Performed By: #### Ankit BANKS CMP, 78459-8, TSHR #### [facility] ([id number]) [address], [address] [place] [address] MCHC (RBC) [Mass/Vol] 31.7 g/dL Low 32-36 [facility] Comment on above: Performed By: #### C SHANTELL BANKS, 90732-4, TSHR #### [facility] ([id number]) [address], [address] [place] [address] MCV (RBC) [Entitic vol] 77 fL Low 80-100 [facility] Comment on above: Performed By: #### Ankit BANKS CMP, 39070-0, TSHR #### [facility] ([id number]) [address], [address] [place] [address] Monocytes (Bld) [#/Vol] 0.5 10*3/uL Normal 0-0.9 [facility] Comment on above: Performed By: #### Ankit BANKS CMP, 51229-8, TSHR #### [facility] ([id number]) [address], [address] [place] [address] Monocytes/100 WBC (Bld) 5.9 % Normal [facility] Comment on above: Performed By: #### Ankit BANKS CMP, 68808-0, TSHR #### [facility] ([id number]) [address], [address] [place] [address] Neutrophils/100 WBC (Bld) 64.1 % Normal [facility] Comment on above: Performed By: #### Ankit BANKS CMP, 50987-1, TSHR #### [facility] ([id number]) [address], [address] [place] [address] Platelet mean volume (Bld) [Entitic vol] 8.5 fL Normal 7-12 [facility] Comment on above: Performed By: #### Ankit BANKS CMP, 30944-1, TSHR #### [facility] ([id number]) [address], [address] [place] [address] Platelets (Bld) [#/Vol] 275 10*3/uL Normal 150-450 [facility] Comment on above: Performed By: #### Ankit BANKS CMP, 51623-7, TSHR #### [facility] ([id number]) [address], [address] [place] [address] RBC COUNT 4.88 X10E12/L Normal 3.80-5.20 [facility] Comment on above: Performed By: #### Ankit BANKS CMP, 79231-1, TSHR #### [facility] ([id number]) [address], [address] [place] [address] WBC (Bld) [#/Vol] 7.6 10*3/uL Normal 4.0-11.0 [facility] Comment on above: Performed By: #### C BCA, CMP, 48888-3, TSHR #### [facility] ([id number]) [address], [address] [place] [address] COMPREHENSIVE METABOLIC PANE Jose 12-13-2023 Albumin [Mass/Vol] 4.1 g/dL Normal 3.2-5.3 [facility] Comment on above: Performed By: #### C BCA, CMP, 44837-8, TSHR #### [facility] ([id number]) [address], [address] [place] [address] ALP [Catalytic activity/Vol] 129 U/L Normal 39-130 [facility] Comment on above: Performed By: #### C BCA, CMP, 29616-5, TSHR #### [facility] ([id number]) [address], [address] [place] [address] ALT [Catalytic activity/Vol] 47 U/L High 0-31 [facility] Comment on above: Performed By: #### C BCA, CMP, 78111-9, TSHR #### [facility] ([id number]) [address], [address] [place] [address] Anion gap [Moles/Vol] 9 mmol/L Normal 5-15 [facility] Comment on above: Performed By: #### C BCA, CMP, 16387-0, TSHR #### [facility] ([id number]) [address], [address] [place] [address] AST [Catalytic activity/Vol] 40 U/L Normal 0-41 [facility] Comment on above: Performed By: #### C BCA, CMP, 39116-6, TSHR #### [facility] ([id number]) [address], [address] [place] [address] Bilirubin [Mass/Vol] 0.2 mg/dL Low 0.3-1.[address] [facility] Comment on above: Performed By: #### C BCA, CMP, 81840-4, TSHR #### [facility] ([id number]) [address] [address] Calcium [Mass/Vol] 9.2 mg/dL Normal 8.5-10.5 [facility] Comment on above: Performed By: #### C BCA, CMP, 72648-7, TSHR #### [facility] ([id number]) [address] [address] Chloride [Moles/Vol] 107 mmol/L Normal 98-[address] [facility] Comment on above: Performed By: #### C BCA, CMP, 74146-7, TSHR #### [facility] ([id number]) [address] [address] CO2 [Moles/Vol] 24 mmol/L Normal 22-32 [facility] Comment on above: Performed By: #### C BCA, CMP, 00115-7, TSHR #### [facility] ([id number]) [address] [address] Creatinine [Mass/Vol] 0.72 mg/dL Normal 0.40-1.00 [facility] Comment on above: Result Comment: METH OD TRACEABLE TO IDMS STANDARD Performed By: #### C BCA, CMP, 35723-6, TSHR #### [facility] ([id number]) [address] [address] eGFR (CKD-EPI) NON-RACE DEPENDENT >90 Normal >59 [facility] Comment on above: Result Comment: Reported eGFR is based on the CKD-EPI 2020 equation that does not use a race coefficient. Performed By: #### C BCA, CMP, 41108-7, TSHR #### [facility] ([id number]) [address] [place] [address] Glucose [Mass/Vol] 82 mg/dL Normal 65-99 [facility] Comment on above: Performed By: #### C BCA, CMP, 12369-7, TSHR #### [facility] ([id number]) [address], [address] [place] [address] Potassium [Moles/Vol] 4.4 mmol/L Normal 3.5-5.0 [facility] Comment on above: Performed By: #### C BCA, CMP, 64136-6, TSHR #### [facility] ([id number]) [address], [address] [place] [address] Protein [Mass/Vol] 7.0 g/dL Normal 6.0-8.0 [facility] Comment on above: Performed By: #### C BCA, CMP, 99841-3, TSHR #### [facility] ([id number]) [address] [place] [address] Sodium [Moles/Vol] 140 mmol/L Normal 134-146 [facility] Comment on above: Performed By: #### C BCA, CMP, 18567-0, TSHR #### [facility] ([id number]) [address] [place] [address] Urea nitrogen [Mass/Vol] 12 mg/dL Normal 5-23 [facility] Comment on above: Performed By: #### C BCA, CMP, 34644-1, TSHR #### [facility] ([id number]) [address] [place] [address] Lipid 1996 panelon 4 Cholesterol [Mass/Vol] 193 mg/dL Normal 150-200 [facility] Comment on above: Performed By: #### C BCA, CMP, 05797-5, TSHR #### [facility] ([id number]) [address], [address] [place] [address] Cholesterol in HDL [Mass/Vol] 58 mg/dL Normal >39 [facility] Comment on above: Result Comment: HDL <40 mg/dL - High Risk HDL > or = 40mg/dL- Desirable HDL >60 mg/dL - Negative Risk Performed By: #### C BCA, CMP, 10058-6, TSHR #### [facility] ([id number]) [address] [place] [address] Cholesterol in LDL [Mass/Vol] 94 mg/dL Normal <130 [facility] Comment on above: Result Comment: LDL <100 mg/dL - Desirable LDL >160 mg/dL - High Risk Performed By: #### C BCA, CMP, 76961-5, TSHR #### [facility] ([id number]) [address] [place] [address] Cholesterol in VLDL [Mass/Vol] 41 mg/dL High 0-30 [facility] Comment on above: Performed By: #### C BCA, CMP, 89792-5, TSHR #### [facility] ([id number]) [address], [address] [place] [address] CHOLESTEROL:HDL 3.3 Normal 1.0-5.0 [facility] Comment on above: Performed By: #### C BCA, CMP, 05863-5, TSHR #### [facility] ([id number]) [address], [address] [place] [address] Triglyceride [Mass/Vol] 207 mg/dL High 27-150 [facility] Comment on above: Performed By: #### C BCA, CMP, 99883-4, TSHR #### [facility] ([id number]) [address], [address] [place] [address] TSH WITH REFLEXon 12-13-2023 TSH 1.28 uIU/mL Normal 0.49-4.67 [facility] Comment on above: Performed By: #### C BCA, [facility], [address]11[address]-3, TSHR #### [facility] ([id number]) [address], [address] [place] [address] CBC AND AUTO DIFFon 06-23-19 ABSOLUTE BASOPHIL 0.0 X10E9/L Normal 0.0-0.2 [facility] Comment on above: Performed By: #### C BCA #### [facility] ([id number]) [address], [address] [place] [address] ABSOLUTE NEUTROPHIL 7.0 X10E9/L High 1.5-6.[address] [facility] Comment on above: Performed By: #### C BCA #### [facility] ([id number]) [address] [address] [place] [address] Basophils/100 WBC (Bld) 0.4 % Normal [facility] Comment on above: Performed By: #### C BCA #### [facility] ([id number]) [address] [place] [address] Eosinophils (Bld) [#/Vol] 0.2 10*3/uL Normal 0.0-0.4 [facility] Comment on above: Performed By: #### C BCA #### [facility] ([id number]) [address], [address] [place] [address] Eosinophils/100 WBC (Bld) 1.9 % Normal [facility] Comment on above: Performed By: #### C BCA #### [facility] ([id number]) [address] [place] [address] Erythrocyte distribution width (RBC) [Ratio] 13.9 % Normal 11.5-15.0 [facility] Comment on above: Performed By: #### C BCA #### [facility] ([id number]) [address], [address] [place] [address] Hematocrit (Bld) [Volume fraction] 35.5 % Normal 35-47 [facility] Comment on above: Performed By: #### C BCA #### [facility] ([id number]) [address] [place] [address] Hemoglobin (Bld) [Mass/Vol] 11.6 g/dL Low 11.7-15.5 [facility] Comment on above: Performed By: #### C BCA #### [facility] ([id number]) [address] [place] [address] Lymphocytes (Bld) [#/Vol] 1.7 10*3/uL Normal 1.0-3.5 [facility] Comment on above: Performed By: #### C BCA #### [facility] ([id number]) [address] [place] [address] Lymphocytes/100 WBC (Bld) 18.1 % Normal [facility] Comment on above: Performed By: #### C BCA #### [facility] ([id number]) [address], [address] [place] [address] MCH (RBC) [Entitic mass] 26.1 pg Low 27-34 [facility] Comment on above: Performed By: #### C BCA #### [facility] ([id number]) [address], [address] [place] [address] MCHC (RBC) [Mass/Vol] 32.8 g/dL Normal 32-36 [facility] Comment on above: Performed By: #### C BCA #### [facility] ([id number]) [address], [address] [place] [address] MCV (RBC) [Entitic vol] 80 fL Normal 80-100 [facility] Comment on above: Performed By: #### C BCA #### [facility] ([id number]) [address], [address] [place] [address] Monocytes (Bld) [#/Vol] 0.5 10*3/uL Normal 0-0.9 [facility] Comment on above: Performed By: #### C BCA #### [facility] ([id number]) [address], [address] [place] [address] Monocytes/100 WBC (Bld) 5.3 % Normal [facility] Comment on above: Performed By: #### C BCA #### [facility] ([id number]) [address], [address] [place] [address] Neutrophils/100 WBC (Bld) 74.3 % Normal [facility] Comment on above: Performed By: #### C BCA #### [facility] ([id number]) [address], [address] [place] [address] Platelet mean volume (Bld) [Entitic vol] 8.0 fL Normal 7-12 [facility] Comment on above: Performed By: #### C BCA #### [facility] ([id number]) [address], [address] [place] [address] Platelets (Bld) [#/Vol] 259 10*3/uL Normal 150-450 [facility] Comment on above: Performed By: #### C BCA #### [facility] ([id number]) [address], [address] [place] [address] RBC COUNT 4.45 X10E12/L Normal 3.80-5.20 [facility] Comment on above: Performed By: #### C BCA #### [facility] ([id number]) [address], [address] [place] [address] WBC (Bld) [#/Vol] 9.5 10*3/uL Normal 4.0-11.0 [facility] Comment on above: Performed By: #### C BCA #### [facility] ([id number]) [address], [address] [place] [address] Glucose 1 Hr post 50 g gluco se PO [Mass/Vol]on 06-23-2023 GLU 1H POST 50G LOAD 116 mg/dL Normal 65-[address] [facility] Comment on above: Performed By: #### 1 504-0 #### [facility] ([id number]) [address], [address] [place] [address] CBC AND AUTO DIFFon 06-07-19 ABSOLUTE BASOPHIL 0.0 X10E9/L Normal 0.0-0.2 [facility] Comment on above: Performed By: #### C BCA, CMP #### [facility] ([id number]) [address] [address] [place] [address] ABSOLUTE NEUTROPHIL 7.0 X10E9/L High 1.5-6.[address] [facility] Comment on above: Performed By: #### C BCA, CMP #### [facility] ([id number]) [address], [address] [place] [address] Basophils/100 WBC (Bld) 0.2 % Normal [facility] Comment on above: Performed By: #### C BCA, CMP #### [facility] ([id number]) [address], [address] [place] [address] Eosinophils (Bld) [#/Vol] 0.1 10*3/uL Normal 0.0-0.4 [facility] Comment on above: Performed By: #### C BCA, CMP #### [facility] ([id number]) [address], [address] [place] [address] Eosinophils/100 WBC (Bld) 1.4 % Normal [facility] Comment on above: Performed By: #### C DARREN, CMP #### [facility] ([id number]) [address], [address] [place] [address] Erythrocyte distribution width (RBC) [Ratio] 13.7 % Normal 11.5-15.0 [facility] Comment on above: Performed By: #### C BCA, CMP #### [facility] ([id number]) [address] [address] [place] [address] Hematocrit (Bld) [Volume fraction] 32.6 % Low 35-47 [facility] Comment on above: Performed By: #### C BCA, CMP #### [facility] ([id number]) [address] [place] [address] Hemoglobin (Bld) [Mass/Vol] 11.0 g/dL Low 11.7-15.5 [facility] Comment on above: Performed By: #### C BCA, CMP #### [facility] ([id number]) [address], [address] [place] [address] Lymphocytes (Bld) [#/Vol] 1.6 10*3/uL Normal 1.0-3.5 [facility] Comment on above: Performed By: #### C BCA, CMP #### [facility] ([id number]) [address], [address] [place] [address] Lymphocytes/100 WBC (Bld) 17.6 % Normal [facility] Comment on above: Performed By: #### C BCA, CMP #### [facility] ([id number]) [address] [address] [place] [address] MCH (RBC) [Entitic mass] 26.5 pg Low 27-34 [facility] Comment on above: Performed By: #### C BCA, CMP #### [facility] ([id number]) [address], [address] [place] [address] MCHC (RBC) [Mass/Vol] 33.6 g/dL Normal 32-36 [facility] Comment on above: Performed By: #### C DARREN, CMP #### [facility] ([id number]) [address], [address] [place] [address] MCV (RBC) [Entitic vol] 79 fL Low 80-100 [facility] Comment on above: Performed By: #### C DARREN, CMP #### [facility] ([id number]) [address], [address] [place] [address] Monocytes (Bld) [#/Vol] 0.4 10*3/uL Normal 0-0.9 [facility] Comment on above: Performed By: #### C DARREN, CMP #### [facility] ([id number]) [address], [address] [place] [address] Monocytes/100 WBC (Bld) 4.5 % Normal [facility] Comment on above: Performed By: #### C DARREN, CMP #### [facility] ([id number]) [address], [address] [place] [address] Neutrophils/100 WBC (Bld) 76.3 % Normal [facility] Comment on above: Performed By: #### Ankit BANKS, CMP #### [facility] ([id number]) [address], [address] [place] [address] Platelet mean volume (Bld) [Entitic vol] 7.4 fL Normal 7-12 [facility] Comment on above: Performed By: #### C DARREN, CMP #### [facility] ([id number]) [address], [address] [place] [address] Platelets (Bld) [#/Vol] 249 10*3/uL Normal 150-450 [facility] Comment on above: Performed By: #### C DARREN, CMP #### [facility] ([id number]) [address], [address] [place] [address] RBC COUNT 4.14 X10E12/L Normal 3.80-5.20 [facility] Comment on above: Performed By: #### C BCA, CMP #### [facility] ([id number]) [address], [address] [place] [address] WBC (Bld) [#/Vol] 9.2 10*3/uL Normal 4.0-11.0 [facility] Comment on above: Performed By: #### C BCA, CMP #### [facility] ([id number]) [address], [address] [place] [address] COMPREHENSIVE METABOLIC PANE Jose 06-07-2023 Albumin [Mass/Vol] 3.2 g/dL Normal 3.2-5.3 [facility] Comment on above: Performed By: #### C BCA, CMP #### [facility] ([id number]) [address], [address] [place] [address] ALP [Catalytic activity/Vol] 90 U/L Normal 39-130 [facility] Comment on above: Performed By: #### C BCA, CMP #### [facility] ([id number]) [address], [address] [place] [address] ALT [Catalytic activity/Vol] 14 U/L Normal 0-31 [facility] Comment on above: Performed By: #### C BCA, CMP #### [facility] ([id number]) [address], [address] [place] [address] Anion gap [Moles/Vol] 8 mmol/L Normal 5-15 [facility] Comment on above: Performed By: #### C BCA, CMP #### [facility] ([id number]) [address], [address] [place] [address] AST [Catalytic activity/Vol] 15 U/L Normal 0-41 [facility] Comment on above: Performed By: #### C BCA, CMP #### [facility] ([id number]) [address] [address] [place] [address] Bilirubin [Mass/Vol] 0.2 mg/dL Low 0.3-1.[address] [facility] Comment on above: Performed By: #### C BCA, CMP #### [facility] ([id number]) [address] [address] [place] [address] Calcium [Mass/Vol] 8.3 mg/dL Low 8.5-10.5 [facility] Comment on above: Performed By: #### C BCA, CMP #### [facility] ([id number]) [address] [address] [place] [address] Chloride [Moles/Vol] 105 mmol/L Normal 98-[address] [facility] Comment on above: Performed By: #### C BCA, CMP #### [facility] ([id number]) [address] [address] [place] [address] CO2 [Moles/Vol] 22 mmol/L Normal 22-32 [facility] Comment on above: Performed By: #### C BCA, CMP #### [facility] ([id number]) [address] [address] [place] [address] Creatinine [Mass/Vol] 0.50 mg/dL Normal 0.40-1.00 [facility] Comment on above: Result Comment: METH OD TRACEABLE TO IDMS STANDARD Performed By: #### C BCA, CMP #### [facility] ([id number]) [address] [address] [place] [address] eGFR (CKD-EPI) NON-RACE DEPENDENT >90 Normal >59 [facility] Comment on above: Result Comment: Reported eGFR is based on the CKD-EPI 2020 equation that does not use a race coefficient. Performed By: #### C BCA, CMP #### [facility] ([id number]) [address] [place] [address] Glucose [Mass/Vol] 82 mg/dL Normal 65-99 [facility] Comment on above: Performed By: #### C BCA, CMP #### [facility] ([id number]) [address] [place] [address] Potassium [Moles/Vol] 4.0 mmol/L Normal 3.5-5.0 [facility] Comment on above: Performed By: #### C BCA, CMP #### [facility] ([id number]) [address], [address] [place] [address] Protein [Mass/Vol] 6.1 g/dL Normal 6.0-8.0 [facility] Comment on above: Performed By: #### C BCA, CMP #### [facility] ([id number]) [address] [place] [address] Sodium [Moles/Vol] 135 mmol/L Normal 134-146 [facility] Comment on above: Performed By: #### C BCA, CMP #### [facility] ([id number]) [address] [place] [address] Urea nitrogen [Mass/Vol] 11 mg/dL Normal 5-23 [facility] Comment on above: Performed By: #### C BCA, CMP #### [facility] ([id number]) [address] [place] [address] Glucose Glucometer (BldC) [M ass/Vol]on 06-07-2023 Glucose [Mass/Vol] 92 mg/dL Normal 65-99 [facility] RESP PATHOGENS/[id number] 06-07-2023 Respiratory pathogens DNA and RNA panel [...] 2 Not detected (qualifier value) NOTE The [employer] Respiratory Panel 2.1 (RP2.1) is a multiplexed [...] patient with possible respiratory tract infection. Normal [facility] Comment on above: Performed By: #### 8 2159-5 #### [facility] ([id number]) [address] [place] [address], [address] [place] [address] URETHRITIS/DISCHARGE PLUS VA GINITIS (HTRX)on 05-09-2023 ATOPOBIUM VAGINAE 0 [facility] ATOPOBIUM VAGINAE Not detected [facility] BVAB 2,3 (BACTERIAL VAGINOSIS ASSOCIATED BACTERIA 2, 3); MOBILUNCUS SPP 0 [facility] BVAB 2,3 (BACTERIAL VAGINOSIS ASSOCIATED BACTERIA 2, 3); MOBILUNCUS SPP Not detected [facility] OSIRIS ALBICANS, PARAPSILOSIS, TROPICALIS 0 [facility] OSIRIS ALBICANS, PARAPSILOSIS, TROPICALIS Not detected [facility] OSIRIS GLABRATA 0 [facility] SOIRIS GLABRATA Not detected [facility] OSIRIS KRUSEI 0 [facility] OSIRIS KRUSEI Not detected N[facility] CHLAMYDIA TRACHOMATIS 0 [facility] CHLAMYDIA TRACHOMATIS Not detected [facility] GARDNERELLA VAGINALIS 0 [facility] GARDNERELLA VAGINALIS Not detected [facility] MEGASPHAERA (TYPES 1, 2) 0 [facility] MEGASPHAERA (TYPES 1, 2) Not detected [facility] MYCOPLASMA GENITALIUM 0 [facility] MYCOPLASMA GENITALIUM Not detected [facility] NEISSERIA GONORRHOEAE 0 [facility] NEISSERIA GONORRHOEAE Not detected [facility] TRICHOMONAS VAGINALIS 0 [facility] TRICHOMONAS VAGINALIS Not detected [facility] Free Cell DNAOrdered B y: Gracy Rodriguez on 03-15-2023 [facility] CBC AUTO DIFFon 08-04-2022 BASO # 0.0 103/ul Normal 0.0-0.1 [facility] Comment on above: Performed By: #### C BC #### [facility] [address] [address] [address] Yassine Zarate Basophils/100 WBC (Bld) 0.3 % Normal 0.2-2.0 [facility] Comment on above: Performed By: #### C BC #### [facility] [address] [place] [address] Dr. Yassine Zarate EO # 0.1 103/ul Normal 0.0-0.7 [facility] Comment on above: Performed By: #### C BC #### [facility] [address] [place] [address] Dr. Yassine Zarate Eosinophils/100 WBC (Bld) 0.8 % Critically low 0.9-7.0 [facility] Comment on above: Performed By: #### C BC #### [facility] [address] [place] [address] Dr. Yassine Zarate Erythrocyte distribution width (RBC) [Ratio] 14.1 % Normal 11.0-15.0 [facility] Comment on above: Performed By: #### C BC #### [facility] [address] [place] [address] Dr. Yassine Zarate Hematocrit (Bld) [Volume fraction] 31.8 % Critically low 36.0-48.0 [facility] Comment on above: Performed By: #### C BC #### [facility] [address] [place] [address] Dr. Yassine Zarate Hemoglobin (Bld) [Mass/Vol] 10.3 g/dL Critically low 12.0-16.0 [facility] Comment on above: Performed By: #### C BC #### [facility] [address] [place] [address] Dr. Yassine Zarate IG # 0.10 10e3/ul Critically high 0.00-0.03 [facility] Comment on above: Performed By: #### C BC #### [facility] [address] [place] [address] Dr. Yassine Zarate IG % 0.8 % Critically high 0.0-0.5 [facility] Comment on above: Performed By: #### C BC #### [facility] [address] [place] [address] Dr. Yassine Zarate LYMPH # 1.9 103/ul Normal 1.2-3.8 [facility] Comment on above: Performed By: #### C BC #### [facility] [address] [place] [address] Dr. Yassine Zarate Lymphocytes/100 WBC (Bld) 14.1 % Critically low 20.5-60.0 [facility] Comment on above: Performed By: #### C BC #### [facility] [address] [place] [address] Dr. Yassine Zarate MANUAL DIFF REQ NO Normal [facility] Comment on above: Performed By: #### C BC #### [facility] [address] [place] [address] Dr. Yassine Zarate MCH (RBC) [Entitic mass] 25.6 pg Critically low 26.7-34.0 [facility] Comment on above: Performed By: #### C BC #### [facility] [address] [place] [address] Dr. Yassine Zarate MCHC (RBC) [Mass/Vol] 32.4 g/dL Normal 29.9-35.2 [facility] Comment on above: Performed By: #### C BC #### [facility] [address] [place] [address] Dr. Yassine Zarate MCV (RBC) [Entitic vol] 79.1 fL Critically low 81.0-99.0 [facility] Comment on above: Performed By: #### C BC #### [facility] [address] [place] [address] Dr. Yassine Zarate MONO # 0.9 103/ul Critically high 0.3-0.8 [facility] Comment on above: Performed By: #### C BC #### [facility] [address] [place] [address] Dr. Yassine Zarate Monocytes/100 WBC (Bld) 6.6 % Normal 1.7-12.0 [facility] Comment on above: Performed By: #### C BC #### [facility] [address] [place] [address] Dr. Yassine Zarate NEUT # 10.3 103/ul Critically high 1.4-6.5 [facility] Comment on above: Performed By: #### C BC #### [facility] [address] [place] [address] Dr. Yassine Zarate Neutrophils/100 WBC (Bld) 77.4 % Critically high 43.0-75.0 [facility] Comment on above: Performed By: #### C BC #### [facility] [address] [place] [address] Dr. Yassine Zarate Platelet mean volume (Bld) [Entitic vol] 9.6 fL Normal 9.5-13.5 [facility] Comment on above: Performed By: #### C BC #### [facility] [address] [place] [address] Dr. Yassine Zarate PLT 251 103/ul Normal 150-450 [facility] Comment on above: Performed By: #### C BC #### [facility] [address] [place] [address] Dr. Yassine Zarate RBC 4.02 106/ul Critically low 4.20-5.40 [facility] Comment on above: Performed By: #### C BC #### [facility] [address] [place] [address] Dr. Yassine Zarate WBC 13.3 103/ul Critically high 4.0-11.0 [facility] Comment on above: Performed By: #### C BC #### [facility] [address] [place] [address] Dr. Yassine Zarate CBC AUTO DIFFon 08-02-2022 BASO # 0.1 103/ul Normal 0.0-0.1 [facility] Comment on above: Performed By: #### C BC #### [facility] [address] [place] [address] Dr. Yassine Zarate Basophils/100 WBC (Bld) 0.5 % Normal 0.2-2.0 [facility] Comment on above: Performed By: #### C BC #### [facility] [address] [place] [address] Dr. Yassine Zarate EO # 0.1 103/ul Normal 0.0-0.7 [facility] Comment on above: Performed By: #### C BC #### [facility] [address] [address] [address] Yassine Zarate Eosinophils/100 WBC (Bld) 1.1 % Normal 0.9-7.0 [facility] Comment on above: Performed By: #### C BC #### [facility] [address] [place] [address] Dr. Yassine Zarate Erythrocyte distribution width (RBC) [Ratio] 13.9 % Normal 11.0-15.0 [facility] Comment on above: Performed By: #### C BC #### [facility] [address] [place] [address] Dr. Yassine Zarate Hematocrit (Bld) [Volume fraction] 34.8 % Critically low 36.0-48.0 [facility] Comment on above: Performed By: #### C BC #### [facility] [address] [place] [address] Dr. Yassine Zarate Hemoglobin (Bld) [Mass/Vol] 11.5 g/dL Critically low 12.0-16.0 [facility] Comment on above: Performed By: #### C BC #### [facility] [address] [place] [address] Dr. Yassine Zarate IG # 0.15 10e3/ul Critically high 0.00-0.03 [facility] Comment on above: Performed By: #### C BC #### [facility] [address] [place] [address] Dr. Yassine Zarate IG % 1.3 % Critically high 0.0-0.5 [facility] Comment on above: Performed By: #### C BC #### [facility] [address] [place] [address] Dr. Yassine Zarate LYMPH # 2.5 103/ul Normal 1.2-3.8 [facility] Comment on above: Performed By: #### C BC #### [facility] [address] [place] [address] Dr. Yassine Zarate Lymphocytes/100 WBC (Bld) 20.6 % Normal 20.5-60.0 [facility] Comment on above: Performed By: #### C BC #### [facility] [address] [place] [address] Dr. Yassine Zarate MANUAL DIFF REQ NO Normal [facility] Comment on above: Performed By: #### C BC #### [facility] [address] [place] [address] Dr. Yassine Zarate MCH (RBC) [Entitic mass] 25.6 pg Critically low 26.7-34.0 [facility] Comment on above: Performed By: #### C BC #### [facility] [address] [place] [address] Dr. Yassine Zarate MCHC (RBC) [Mass/Vol] 33.0 g/dL Normal 29.9-35.2 [facility] Comment on above: Performed By: #### C BC #### [facility] [address] [place] [address] Dr. Yassine Zarate MCV (RBC) [Entitic vol] 77.5 fL Critically low 81.0-99.0 [facility] Comment on above: Performed By: #### C BC #### [facility] [address] [place] [address] Dr. Yassine Zarate MONO # 0.7 103/ul Normal 0.3-0.8 [facility] Comment on above: Performed By: #### C BC #### [facility] [address] [place] [address] Dr. Yassine Zarate Monocytes/100 WBC (Bld) 6.1 % Normal 1.7-12.0 [facility] Comment on above: Performed By: #### C BC #### [facility] [address] [place] [address] Dr. Yassine Zarate NEUT # 8.4 103/ul Critically high 1.4-6.5 [facility] Comment on above: Performed By: #### C BC #### [facility] [address] [place] [address] Dr. Yassine Zarate Neutrophils/100 WBC (Bld) 70.4 % Normal 43.0-75.0 [facility] Comment on above: Performed By: #### C BC #### [facility] [address] [address] [address] Yassine Zarate Platelet mean volume (Bld) [Entitic vol] 9.6 fL Normal 9.5-13.5 [facility] Comment on above: Performed By: #### C BC #### [facility] [address] [place] [address] Dr. Yassine Zarate PLT 294 103/ul Normal 150-450 [facility] Comment on above: Performed By: #### C BC #### [facility] [address] [place] [address] Dr. Yassine Zarate RBC 4.49 106/ul Normal 4.20-5.40 [facility] Comment on above: Performed By: #### C BC #### [facility] [address] [place] [address] Dr. Yasisne Zarate WBC 11.9 103/ul Critically high 4.0-11.0 [facility] Comment on above: Performed By: #### C BC #### [facility] [address] [place] [address] Dr. Yassine Zarate DRUG SCREEN RAPID (URINE)on 08-02-2022 AMP Negative Normal NEGATIVE [facility] Comment on above: Performed By: #### D RUGRPD #### [facility] [address] [place] [address] Dr. Yassine Zarate BAR Negative Normal NEGATIVE [facility] Comment on above: Performed By: #### D RUGRPD #### [facility] [address] [place] [address] Dr. Yassine Zarate BUP Negative Normal NEGATIVE [facility] Comment on above: Performed By: #### D RUGRPD #### [facility] [address] [place] [address] Dr. Yassine Zarate BZO Negative Normal NEGATIVE [facility] Comment on above: Performed By: #### D RUGRPD #### [facility] [address] [place] [address] Dr. Yassine Zarate RACIEL Negative Normal NEGATIVE [facility] Comment on above: Performed By: #### D RUGRPD #### [facility] [address] [place] [address] Dr. Yassine Zarate CUT-OFFS SEE BELOW Normal [facility] Comment on above: Result Comment: AMP (Amphetamine): 500ng/mL, BAR (Barbituates): 200 ng/mL, BZO (Benzodiazepines): 150 ng/mL, BUP (Buprenorphine): 10 ng/mL, RACIEL (Cocaine): 150 ng/mL, mAMP (Methamphetamine): 500 ng/mL, MTD (Methadone): 200 ng/mL, OPI (Opiates): 100 ng/mL, OXY (Oxycodone): 100 ng/mL, PCP (Phencyclidine): 25 ng/mL, PPX (Propoxyphene): 300 ng/mL, THC (Cannabinoids): 50 ng/mL, TCA (Trycyclic Antidepressants): 300 ng/mL Performed By: #### D RUGRPD #### [facility] [address] [place] [address] Dr. Yassine Zarate DRUG CUT HEADER DRUG CLASS TEST SYSTEM CUT-OFF CONCENTRATIONS ARE FOLLOWS: Normal [facility] Comment on above: Performed By: #### D RUGRPD #### [facility] [address] [place] [address] Dr. Yassine Zarate mAMP Negative Normal NEGATIVE [facility] Comment on above: Performed By: #### D RUGRPD #### [facility] [address] [place] [address] Dr. Yassine Zarate MTD Negative Normal NEGATIVE [facility] Comment on above: Performed By: #### D RUGRPD #### [facility] [address] [place] [address] Dr. Yassine Zarate OPI Negative Normal NEGATIVE [facility] Comment on above: Performed By: #### D RUGRPD #### [facility] [address] [place] [address] Dr. Yassine Zarate OXY Negative Normal NEGATIVE [facility] Comment on above: Performed By: #### D RUGRPD #### [facility] [address] [place] [address] Dr. Yassine Zarate PCP Negative Normal NEGATIVE [facility] Comment on above: Performed By: #### D RUGRPD #### [facility] [address] [address] [address] Yassine Zarate PPX Negative Normal NEGATIVE [facility] Comment on above: Performed By: #### D RUGRPD #### [facility] [address] [place] [address] Dr. Yassine Zarate TCA Negative Normal NEGATIVE [facility] Comment on above: Performed By: #### D RUGRPD #### [facility] [address] [place] [address] Dr. Yassine Zarate THC Negative Normal NEGATIVE [facility] Comment on above: Performed By: #### D RUGRPD #### [facility] [address] [place] [address] Dr. Yassine Zarate TYPE AND SCREENon 08-02-2022 TYPE AND SCREEN Negative Normal [facility] Comment on above: Performed By: #### C BC #### [facility] [address] [place] [address] Dr. Yassine Zarate GROUP B STREP CULTUREon [...] F Tetracycline >=16 R F Normal [facility] Comment on above: Performed By: #### C BC #### [facility] [address] [place] [address] Dr. Yassine Zarate US PREG GROWTHon 06-15-2022 [...] authenticated by: VILMA COBURN Date: 2022-06-15 15:12 [facility] PAP ACOG PANEL 2: 21 to 29on 04-25-2022 . . Normal [facility] Comment on above: Performed By: #### C BC #### [facility] [address] [address] [address] Yassine Zarate Age Gdln ACOG Testing 21-29 [facility] Comment on above: Performed By: #### C BC #### [facility] [address] [address] [address] Yassine Zarate DIAGNOSIS: Comment [facility] Comment on above: Result Comment: NEGA TIVE FOR INTRAEPITHELIAL LESION OR MALIGNANCY. CELLULAR CHANGES ASSOCIATED WITH INFLAMMATION ARE PRESENT. Performed By: #### C BC #### [facility] [address] [place] [address] Dr. Yassine Zarate Methodology: Comment Normal [facility] Comment on above: Result Comment: This liquid based ThinPrep(R) pap test was screened with the use of an image guided system. Performed By: #### C BC #### [facility] [address] [place] [address] Dr. Yassine Zarate Note: Comment [facility] Comment on above: Result Comment: The Pap smear is a screening test designed to aid in the detection of premalignant and malignant conditions of the uterine cervix. It is not a diagnostic procedure and should not be used as the sole means of detecting cervical cancer. Both false-positive and false-negative reports do occur. . Performed By: #### C BC #### [facility] [address] [place] [address] Dr. Yassine Zarate Performed by: Comment Normal [facility] Comment on above: Result Comment: Marko Christensen, Tape Librarian (ASCP) Performed By: #### C BC #### [facility] [address] [place] [address] Dr. Yassine Zarate Reflex Criteria: Comment Normal [facility] Comment on above: Result Comment: The HPV DNA reflex criteria were not met with this specimen result therefore, no HPV testing was performed. . Performed By: #### C BC #### [facility] [address] [place] [address] Dr. Yassine Zarate Specimen adequacy: Comment Normal [facility] Comment on above: Result Comment: Sati sfactory for evaluation. No endocervical component is identified. Performed By: #### C BC #### [facility] [address] [place] [address] Dr. Yassine Zarate CHLAMYDIA/GONOCOCCUS SARAH (SW AB/URINE/PAPon 04-24-2022 Chlamydia trachomatis, SARAH Negative Normal Negative [facility] Comment on above: Performed By: #### C BC #### [facility] [address] [place] [address] Dr. Yassine Zarate Neisseria gonorrhoeae, SARAH Negative Normal Negative [facility] Comment on above: Performed By: #### C BC #### [facility] [address] [place] [address] Dr. Yassine Zarate VAGINITIS/VAGINOSIS DNA PROB Emmanuel 04-22-2022 Osiris species Positive Abnormal Negative [facility] Comment on above: Performed By: #### V AGINT #### [facility] [address] [place] [address] Dr. Yassine Zarate Gardnerella vaginalis Negative Normal Negative [facility] Comment on above: Performed By: #### V AGINT #### [facility] [address] [place] [address] Dr. Yassine Zarate Trichomonas vaginalis Negative Normal Negative [facility] Comment on above: Performed By: #### V AGINT #### [facility] [address] [place] [address] Dr. Yassine Zarate CBC AUTO DIFFon 04-20-2022 BASO # 0.0 103/ul Normal 0.0-0.1 [facility] Comment on above: Performed By: #### C BC #### [facility] [address] [place] [address] Dr. Yassine Zarate Basophils/100 WBC (Bld) 0.4 % Normal 0.2-2.0 [facility] Comment on above: Performed By: #### C BC #### [facility] [address] [place] [address] Dr. Yassine Zarate EO # 0.1 103/ul Normal 0.0-0.7 [facility] Comment on above: Performed By: #### C BC #### [facility] [address] [place] [address] Dr. Yassine Zarate Eosinophils/100 WBC (Bld) 1.0 % Normal 0.9-7.0 [facility] Comment on above: Performed By: #### C BC #### [facility] [address] [place] [address] Dr. Yassine Zarate Erythrocyte distribution width (RBC) [Ratio] 12.3 % Normal 11.0-15.0 [facility] Comment on above: Performed By: #### C BC #### [facility] [address] [place] [address] Dr. Yassine Zarate Hematocrit (Bld) [Volume fraction] 34.8 % Critically low 36.0-48.0 [facility] Comment on above: Performed By: #### C BC #### [facility] [address] [place] [address] Dr. Yassine Zarate Hemoglobin (Bld) [Mass/Vol] 11.4 g/dL Critically low 12.0-16.0 [facility] Comment on above: Performed By: #### C BC #### [facility] [address] [place] [address] Dr. Yassine Zarate IG # 0.07 10e3/ul Critically high 0.00-0.03 [facility] Comment on above: Performed By: #### C BC #### [facility] [address] [place] [address] Dr. Yassine Zarate IG % 0.8 % Critically high 0.0-0.5 [facility] Comment on above: Performed By: #### C BC #### [facility] [address] [address] [address] Yassine Zarate LYMPH # 1.9 103/ul Normal 1.2-3.8 [facility] Comment on above: Performed By: #### C BC #### [facility] [address] [place] [address] Dr. Yassine Zarate Lymphocytes/100 WBC (Bld) 20.6 % Normal 20.5-60.0 [facility] Comment on above: Performed By: #### C BC #### [facility] [address] [place] [address] Dr. Yassine Zarate MANUAL DIFF REQ NO Normal [facility] Comment on above: Performed By: #### C BC #### [facility] [address] [place] [address] Dr. Yassine Zarate MCH (RBC) [Entitic mass] 26.3 pg Critically low 26.7-34.0 [facility] Comment on above: Performed By: #### C BC #### [facility] [address] [place] [address] Dr. Yassine Zarate MCHC (RBC) [Mass/Vol] 32.8 g/dL Normal 29.9-35.2 [facility] Comment on above: Performed By: #### C BC #### [facility] [address] [place] [address] Dr. Yassine Zarate MCV (RBC) [Entitic vol] 80.2 fL Critically low 81.0-99.0 [facility] Comment on above: Performed By: #### C BC #### [facility] [address] [place] [address] Dr. Yassine Zarate MONO # 0.5 103/ul Normal 0.3-0.8 [facility] Comment on above: Performed By: #### C BC #### [facility] [address] [place] [address] Dr. Yassine Zarate Monocytes/100 WBC (Bld) 5.2 % Normal 1.7-12.0 [facility] Comment on above: Performed By: #### C BC #### [facility] [address] [place] [address] Dr. Yassine Zarate NEUT # 6.5 103/ul Normal 1.4-6.5 [facility] Comment on above: Performed By: #### C BC #### [facility] [address] [place] [address] Dr. Yassine Zarate Neutrophils/100 WBC (Bld) 72.0 % Normal 43.0-75.0 [facility] Comment on above: Performed By: #### C BC #### [facility] [address] [place] [address] Dr. Yassine Zarate Platelet mean volume (Bld) [Entitic vol] 9.2 fL Critically low 9.5-13.5 [facility] Comment on above: Performed By: #### C BC #### [facility] [address] [place] [address] Dr. Yassine Zarate PLT 270 103/ul Normal 150-450 [facility] Comment on above: Performed By: #### C BC #### [facility] [address] [place] [address] Dr. Yassine Zarate RBC 4.34 106/ul Normal 4.20-5.40 [facility] Comment on above: Performed By: #### C BC #### [facility] [address] [place] [address] Dr. Yassine Zarate WBC 9.1 103/ul Normal 4.0-11.0 [facility] Comment on above: Performed By: #### C BC #### [facility] [address] [place] [address] Dr. Yassine Zarate GLUCOSE - 1HRon 04-20-2022 Glucose [Mass/Vol] 97 mg/dL Normal 74-106 [facility] Comment on above: Performed By: #### C BC #### [facility] [address] [address] [address] Yassine Zarate AFP MATERNAL FOR SPINA BIFID Aon 03-23-2022 AFP MoM 1.21 Normal [facility] Comment on above: Performed By: #### A FPMAT #### [facility] [address] [address] [address] Yassine Zarate AFP Value 69.6 ng/mL Normal [facility] Comment on above: Performed By: #### A FPMAT #### [facility] [address] [address] [address] Yassine Zarate AFP, Serum for Spina Bifida Report Normal [facility] Comment on above: Performed By: #### A FPMAT #### [facility] [address] [address] [address] Yassine Zarate Comment Comment Normal [facility] Comment on above: Result Comment: Shakila Dickinson, Ph.D., [facility] Director . References: Available Upon Request. . Multiples Of Median Cutoffs For AFP Elevations Guzman 2.5 Black 2.8 IDD 2.0 Twins 4.5 Abbreviation Definitions IDD - Insulin Dep Diabetes OSBR - Open Spina Bifida Risk . For further inquiries contact [facility] at [phone]. . This test was developed and its performance characteristics determined by [employer]. It has not been cleared or approved by the Food and Drug Administration. Performed By: #### A FPMAT #### [facility] [address] [address] [address] Yassine Larsen Age Collection Date 20.6 weeks Normal [facility] Comment on above: Performed By: #### A FPMAT #### [facility] [address] [place] [address] Dr. Yassine Zarate Gestat, Age Based on THA [facility] Comment on above: Result Comment: 07/2022 Recalculations are not recommended when gestational dating by LMP and ultrasound are within 10 days. Performed By: #### A FPMAT #### [facility] [address] [address] [address] Yassine Zarate Insulin Dep Diabetes No Normal [facility] Comment on above: Performed By: #### A FPMAT #### [facility] [address] [address] [address] Yassine Zarate Interpretation Comment Normal [facility] Comment on above: Result Comment: Inte rpretation: [...] Customer Services to discuss available options. The [employer] recommends amniocentesis be offered to women age 35 and older. Performed By: #### A FPMAT #### [facility] [address] [place] [address] Dr. Yassine Zarate M[age] THA 32.[address] [facility] Comment on above: Performed By: #### A FPMAT #### [facility] [address] [address] [address] Yassine Zarate Multiple Gestation No Normal [facility] Comment on above: Performed By: #### A FPMAT #### [facility] [address] [place] [address] Dr. Yassine Zarate OSBR Risk 1 IN 6301 Normal [facility] Comment on above: Performed By: #### A FPMAT #### [facility] [address] [place] [address] Dr. Yassine Zarate PDF . Normal [facility] Comment on above: Performed By: #### A FPMAT #### [facility] [address] [place] [address] Dr. Yassine Zarate Race Normal [facility] Comment on above: Performed By: #### A FPMAT #### [facility] [address] [place] [address] Dr. Yassine Zarate Test Results: Negative Normal [facility] Comment on above: Performed By: #### A FPMAT #### [facility] [address] [address] [address] Yassine Zarate US PREG ANATOMY SINGLEon [...] VILMA COBURN Date: 2022-03-21 20:38 Normal [facility] HEP B SURFACE ANTIGEN SCREEN on 01-18-2022 HBsAg Screen Negative Normal Negative [facility] Comment on above: Performed By: #### H BSANS #### [facility] [address] [address] [address] Yassine Zarate HEPATITIS C VIRUS AB W/ REFL EX QUANTon 01-18-2022 HCV AB <0.1 Normal 0.0-0.9 [facility] Comment on above: Performed By: #### H CVPCRR #### [facility] [address] [place] [address] Dr. Yassine Zarate Interpretation: Comment Normal [facility] Comment on above: Result Comment: Nega tive Not infected with HCV, unless recent infection is suspected or other evidence exists to indicate HCV infection. Performed By: #### H CVPCRR #### [facility] [address] [place] [address] Dr. Yassine Zarate HIV 1 AND 2 WITH REFLEXon HIV Screen 4th Generation wRfx Non-Reactive Normal Non Reactive [facility] Comment on above: Result Comment: HIV Negative HIV-1/HIV-2 antibodies and HIV-1 p24 antigen were NOT detected. There is no laboratory evidence of HIV infection. Performed By: #### C BC #### [facility] [address] [place] [address] Dr. Yassine Zarate RPR QUANTon 01-18-2022 Rapid Plasma Reagin, Quant Non-Reactive Normal NonRea<1:1 [facility] Comment on above: Result Comment: Plea se Note: This test does not meet current guidelines for screening and diagnosis of syphilis. This test is intended for following treatment response in patients being treated for syphilis infection. To screen for syphilis infection, a reflex cascade that includes both RPR and a treponema-specific assay should be utilized, such as Treponema pallidum (Syphilis) Screening [place] (113937) or Rapid Plasma Reagin (RPR) Test With Reflex to Quantitative RPR and Confirmatory Treponema pallidum Antibodies (421345). Performed By: #### C BC #### [facility] [address] [place] [address] Dr. Yassine Zarate RUBELLA AB IGGon 01-18-2022 Rubella Antibodies, IgG 1.96 index Normal Immune >0.99 [facility] Comment on above: Result Comment: Non- immune <0.90 Equivocal 0.90 - 0.99 Immune >0.99 Performed By: #### C BC #### [facility] [address] [place] [address] Dr. Yassine Zarate CBC AUTO DIFFon 01-17-2022 BASO # 0.0 103/ul Normal 0.0-0.1 [facility] Comment on above: Performed By: #### C BC #### [facility] [address] [place] [address] Dr. Yassine Zarate Basophils/100 WBC (Bld) 0.4 % Normal 0.2-2.0 [facility] Comment on above: Performed By: #### C BC #### [facility] [address] [place] [address] Dr. Yassine Zarate EO # 0.1 103/ul Normal 0.0-0.7 [facility] Comment on above: Performed By: #### C BC #### [facility] [address] [place] [address] Dr. Yassine Zarate Eosinophils/100 WBC (Bld) 1.4 % Normal 0.9-7.0 [facility] Comment on above: Performed By: #### C BC #### [facility] [address] [place] [address] Dr. Yassine Zarate Erythrocyte distribution width (RBC) [Ratio] 12.2 % Normal 11.0-15.0 [facility] Comment on above: Performed By: #### C BC #### [facility] [address] [place] [address] Dr. Yassine Zarate Hematocrit (Bld) [Volume fraction] 36.9 % Normal 36.0-48.0 [facility] Comment on above: Performed By: #### C BC #### [facility] [address] [place] [address] Dr. Yassine Zarate Hemoglobin (Bld) [Mass/Vol] 12.1 g/dL Normal 12.0-16.0 [facility] Comment on above: Performed By: #### C BC #### [facility] [address] [place] [address] Dr. Yassine Zarate IG # 0.03 10e3/ul Normal 0.00-0.03 [facility] Comment on above: Performed By: #### C BC #### [facility] [address] [place] [address] Dr. Yassine Zarate IG % 0.4 % Normal 0.0-0.5 [facility] Comment on above: Performed By: #### C BC #### [facility] [address] [place] [address] Dr. Yassine Zarate LYMPH # 2.0 103/ul Normal 1.2-3.8 [facility] Comment on above: Performed By: #### C BC #### [facility] [address] [place] [address] Dr. Yassine Zarate Lymphocytes/100 WBC (Bld) 23.8 % Normal 20.5-60.0 [facility] Comment on above: Performed By: #### C BC #### [facility] [address] [place] [address] Dr. Yassine Zarate MANUAL DIFF REQ NO Normal [facility] Comment on above: Performed By: #### C BC #### [facility] [address] [place] [address] Dr. Yassine Zarate MCH (RBC) [Entitic mass] 26.9 pg Normal 26.7-34.0 [facility] Comment on above: Performed By: #### C BC #### [facility] [address] [place] [address] Dr. Yassine Zarate MCHC (RBC) [Mass/Vol] 32.8 g/dL Normal 29.9-35.2 [facility] Comment on above: Performed By: #### C BC #### [facility] [address] [place] [address] Dr. Yassine Zarate MCV (RBC) [Entitic vol] 82.0 fL Normal 81.0-99.0 [facility] Comment on above: Performed By: #### C BC #### [facility] [address] [place] [address] Dr. Yassine Zarate MONO # 0.4 103/ul Normal 0.3-0.8 [facility] Comment on above: Performed By: #### C BC #### [facility] [address] [place] [address] Dr. Yassine Zarate Monocytes/100 WBC (Bld) 4.8 % Normal 1.7-12.0 [facility] Comment on above: Performed By: #### C BC #### [facility] [address] [place] [address] Dr. Yassine Zarate NEUT # 5.9 103/ul Normal 1.4-6.5 [facility] Comment on above: Performed By: #### C BC #### [facility] [address] [place] [address] Dr. Yassine Zarate Neutrophils/100 WBC (Bld) 69.2 % Normal 43.0-75.0 [facility] Comment on above: Performed By: #### C BC #### [facility] [address] [place] [address] Dr. Yassine Zarate Platelet mean volume (Bld) [Entitic vol] 9.0 fL Critically low 9.5-13.5 [facility] Comment on above: Performed By: #### C BC #### [facility] [address] [place] [address] Dr. Yassine Zarate PLT 283 103/ul Normal 150-450 [facility] Comment on above: Performed By: #### C BC #### [facility] [address] [place] [address] Dr. Yassine Zarate RBC 4.50 106/ul Normal 4.20-5.40 [facility] Comment on above: Performed By: #### C BC #### [facility] [address] [place] [address] Dr. Yassine Zarate WBC 8.5 103/ul Normal 4.0-11.0 [facility] Comment on above: Performed By: #### C BC #### [facility] [address] [place] [address] Dr. Yassine Zarate CULTURE URINEon 01-17-2022 CULTURE URINE Culture Observations : LIGHT GROWTH OF MIXED GENITAL JACQUELYN. NO POTENTIAL PATHOGENS SEEN. Normal [facility] Comment on above: Performed By: #### U RCX #### [facility] [address] [place] [address] Dr. Yassine Zarate GLYCOHEMOGLOBIN A1Con 2021 ADA RECOMMENDATION SEE BELOW Normal [facility] Comment on above: Result Comment: ADA RECOMMENDED LIMIT 4.0 - 6.0 ADA THERAPEUTIC TARGET < 7.0 ACTION SUGGESTED > 7.0 Performed By: #### C BC #### [facility] [address] [address] [address] Yassine Zarate Glucose [Mass/Vol] 108 mg/dL Normal [facility] Comment on above: Performed By: #### C BC #### [facility] [address] [place] [address] Dr. Yassine Zarate HbA1c (Bld) [Mass fraction] 5.4 % Normal 4.5-6.2 [facility] Comment on above: Performed By: #### C BC #### [facility] [address] [place] [address] Dr. Yassine Zarate JENNIFER BOX TEST PT SEND OUTo n 01-17-2022 SENT TO REF LAB 01/17/2022 Normal [facility] Comment on above: Performed By: #### C BC #### [facility] [address] [place] [address] Dr. Yassine Zarate TYPE AND SCREENon 01-17-2022 TYPE AND SCREEN Negative Normal [facility] Comment on above: Performed By: #### T NS #### [facility] [address] [place] [address] Dr. Yassine Zarate US PREG TVon 12-29-2021 [...] by: VILMA COBURN Date: 2021-12-29 16:26 Normal [facility] US PELVIS AND TRANSVAGon US PELVIS [...] by: BEBO JORGE Date: 2021-11-13 12:05 Normal [facility] HEPATITIS C AB W/REFL TO HCV RNA, QN, PCRon 11-11-2021 HEPATITIS C ANTIBODY Non-Reactive Normal NON-REACTIVE [facility] Comment on above: Performed By: #### 8 472 #### [facility] [address], [address] [place] [phone] Back Line Cook: Holden Mathur MD INDEX 0.04 Normal <1.00 [facility] Comment on above: Result Comment: HCV antibody was non-reactive. There is no laboratory evidence of HCV infection. In most cases, no further action is required. However, if recent HCV exposure is suspected, a test for HCV RNA (test code 92736) is suggested. For additional information please refer to http://[email or web address]/faq/FQU17d2 (This link is being provided for informational/ educational purposes only.) Performed By: #### 8 472 #### [facility] [address], [address] [place] [phone] Back Line Cook: Holden Mathur MD LIPID PROFILEon 11-09-2021 CHOL-HDL RATIO NORM SEE BELOW Normal [facility] Comment on above: Result Comment: 3.3 - 4.4 LOW RISK 4.4 - 7.1 AVERAGE RISK 7.1 - 11.0 MODERATE RISK >11.0 HIGH RISK Performed By: #### C BC #### [facility] [address] [address] [address] Yassine Zarate Cholesterol [Mass/Vol] 176 mg/dL Normal <=200 [facility] Comment on above: Performed By: #### C BC #### [facility] [address] [address] [address] Yassine Zarate Cholesterol in HDL [Mass/Vol] 58 mg/dL Normal 40-60 [facility] Comment on above: Performed By: #### C BC #### [facility] [address] [address] [address] Yassine Zarate Cholesterol in LDL [Mass/Vol] 98.4 mg/dL Normal [facility] Comment on above: Performed By: #### C BC #### [facility] [address] [place] [address] Dr. Yassine Zarate Cholesterol.total/Ch olesterol in HDL [Mass ratio] 3.0 {ratio} Normal [facility] Comment on above: Performed By: #### C BC #### [facility] [address] [address] [address] Yassine Zarate HDL NORMAL > or = 60 mg/dl - LO W CARDIOVASCULAR RISK <40 mg/dl - HIGH CARDIOVASCULAR RISK Normal [facility] Comment on above: Performed By: #### C BC #### [facility] [address] [address] [address] Yassine Zarate LDL CALC NORMAL SEE BELOW Normal [facility] Comment on above: Result Comment: <100 mg/dl OPTIMAL 100 - 129 mg/dl NEAR OR ABOVE OPTIMAL 130 - 159 mg/dl BORDERLINE HIGH 160 - 189 mg/dl HIGH >190 mg/dl VERY HIGH Performed By: #### C BC #### [facility] [address] [address] [address] Yassine Zarate Triglyceride [Mass/Vol] 98 mg/dL Normal <=150 [facility] Comment on above: Performed By: #### C BC #### [facility] [address] [address] [address] Yassine Zarate VLDL CALC 19.6 mg/dL Normal [facility] Comment on above: Performed By: #### C BC #### [facility] [address] [place] [address] Dr. Yassine Zarate PROF 14(COMP METB)on 022 Albumin [Mass/Vol] 3.8 g/dL Normal 3.4-5.0 [facility] Comment on above: Performed By: #### C BC #### [facility] [address] [place] [address] Dr. Yassine Zarate Albumin/Globulin [Mass ratio] 1.1 {ratio} Normal [facility] Comment on above: Performed By: #### C BC #### [facility] [address] [place] [address] Dr. Yassine Zarate ALP [Catalytic activity/Vol] 79 U/L Normal 46-116 [facility] Comment on above: Performed By: #### C BC #### [facility] [address] [place] [address] Dr. Yassine Zarate ALT [Catalytic activity/Vol] 16 U/L Normal 14-59 [facility] Comment on above: Performed By: #### C BC #### [facility] [address] [place] [address] Dr. Yassine Zarate Anion gap [Moles/Vol] 14.4 mmol/L Normal [facility] Comment on above: Performed By: #### C BC #### [facility] [address] [place] [address] Dr. Yassine Zarate AST [Catalytic activity/Vol] 13 U/L Critically low 15-37 [facility] Comment on above: Performed By: #### C BC #### [facility] [address] [place] [address] Dr. Yassine Zarate Bilirubin [Mass/Vol] 0.5 mg/dL Normal 0.2-1.0 [facility] Comment on above: Performed By: #### C BC #### [facility] [address] [place] [address] Dr. Yassine Zarate Calcium [Mass/Vol] 8.8 mg/dL Normal 8.5-10.1 [facility] Comment on above: Performed By: #### C BC #### [facility] [address] [place] [address] Dr. Yassine Zarate Chloride [Moles/Vol] 103 mmol/L Normal 98-107 [facility] Comment on above: Performed By: #### C BC #### [facility] [address] [address] [address] Yassine Zarate CO2 [Moles/Vol] 25.7 mmol/L Normal 21.0-32.0 [facility] Comment on above: Performed By: #### C BC #### [facility] [address] [place] [address] Dr. Yassine Zarate Creatinine [Mass/Vol] 0.69 mg/dL Normal 0.55-1.02 [facility] Comment on above: Performed By: #### C BC #### [facility] [address] [place] [address] Dr. Yassine Zarate EGFR-AF BRITISH >60 Normal >=60 [facility] Comment on above: Performed By: #### C BC #### [facility] [address] [place] [address] Dr. Yassine Zarate EGFR-NON AF BRITISH >60 Normal >=60 [facility] Comment on above: Performed By: #### C BC #### [facility] [address] [place] [address] Dr. Yassine Zarate Globulin (S) [Mass/Vol] 3.5 g/dL Normal [facility] Comment on above: Performed By: #### C BC #### [facility] [address] [place] [address] Dr. Yassine Zarate Glucose [Mass/Vol] 85 mg/dL Normal 74-106 [facility] Comment on above: Performed By: #### C BC #### [facility] [address] [place] [address] Dr. Yassine Zarate Potassium [Moles/Vol] 4.1 mmol/L Normal 3.5-5.1 [facility] Comment on above: Performed By: #### C BC #### [facility] [address] [place], [place] [address] Dr. Yassine Zarate Protein [Mass/Vol] 7.3 g/dL Normal 6.4-8.2 [facility] Comment on above: Performed By: #### C BC #### [facility] [address] [place], [place] [address] Dr. Yassine Zarate Sodium [Moles/Vol] 139 mmol/L Normal 136-145 [facility] Comment on above: Performed By: #### C BC #### [facility] [address] [place], [place] [address] Dr. Yassine Zarate Urea nitrogen [Mass/Vol] 13.0 mg/dL Normal 7.0-18.0 [facility] Comment on above: Performed By: #### C BC #### [facility] [address] [place], [place] [address] Dr. Yassine Zarate Urea nitrogen/Creatinine [Mass ratio] 18.8 mg/mg Normal [facility] Comment on above: Performed By: #### C BC #### [facility] [address] [place], [place] [address] Dr. Yassine Zarate BASIC METABOLIC PANEL 05-04 BUN/CREATININE RATIO NOT APPLICABLE Normal 6-22 [facility] Comment on above: Order Comment: FASTI NG:NO FASTING: NO Performed By: #### 1 7306, 9842, 68648, 37477 #### [facility] [address], [address] [place] [address] [employer]: Holden Mathur MD Calcium [Mass/Vol] 9.6 mg/dL Normal 8.6-10.2 [facility] Comment on above: Order Comment: FASTI NG:NO FASTING: NO Performed By: #### 1 7306, 6399, 45075, 41106 #### [facility] [address], [address] [place] [address] [employer]: Holden Mathur MD Chloride [Moles/Vol] 105 mmol/L Normal 98-110 [facility] Comment on above: Order Comment: FASTI NG:NO FASTING: NO Performed By: #### 1 7306, 6399, 58496, 72050 #### [facility] [address], [address] [place] [address] [employer]: Holden Mathur MD CO2 [Moles/Vol] 24 mmol/L Normal 20-32 [facility] Comment on above: Order Comment: FASTI NG:NO FASTING: NO Performed By: #### 1 7306, 6399, 14032, 55718 #### [facility] [address] [address] [employer] Cook: Holden Mathur MD Creatinine [Mass/Vol] 0.74 mg/dL Normal 0.50-1.10 [facility] Comment on above: Order Comment: FASTI NG:NO FASTING: NO Performed By: #### 1 7306, 6399, 27583, 83458 #### [facility] [address] [place] [address] [employer]: Holden Mathur MD eGFR NON-AFR. BRITISH 110 mL/min/1.73m2 Normal > OR = 60 [facility] Comment on above: Order Comment: FASTI NG:NO FASTING: NO Performed By: #### 1 7306, 6399, 26663, 91541 #### [facility] [address] [place] [address] [employer]: Holden Mathur MD GFR/1.73 sq M.predicted among blacks MDRD (S/P/Bld) [Vol rate/Area] 128 mL/min/{1.73_m2} Normal > OR = 60 [facility] Comment on above: Order Comment: FASTI NG:NO FASTING: NO Performed By: #### 1 7306, 6399, 79745, 06369 #### [facility] [address] [place] [address] [employer] Cook: Holden Mathur MD Glucose [Mass/Vol] 83 mg/dL Normal 65-139 [facility] Comment on above: Order Comment: FASTI NG:NO FASTING: NO Result Comment: Non-fasting reference interval Performed By: #### 1 7306, 6399, 20942, 46028 #### [facility] [address] [place] [address] [employer] Cook: Holden Mathur MD Potassium [Moles/Vol] 4.5 mmol/L Normal 3.5-5.3 [facility] Comment on above: Order Comment: FASTI NG:NO FASTING: NO Performed By: #### 1 7306, 6399, 49230, 24448 #### [facility] [address] [place] [address] [employer] Cook: Holden Mathur MD Sodium [Moles/Vol] 138 mmol/L Normal 135-146 [facility] Comment on above: Order Comment: FASTI NG:NO FASTING: NO Performed By: #### 1 7306, 6399, 30544, 53567 #### [facility] [address] [place] [address] Back [employer] Cook: Holden Mathur MD Urea nitrogen [Mass/Vol] 16 mg/dL Normal 7-25 [facility] Comment on above: Order Comment: FASTI NG:NO FASTING: NO Performed By: #### 1 7306, 6399, 56611, 34437 #### [facility] [address] [place] [address] [employer] Cook: Holden Mathur MD CBC (INCLUDES DIFF/PLT)on Basophils (Bld) [#/Vol] 0.05 10*3/uL Normal 0-200 [facility] Comment on above: Performed By: #### 1 7306, 6399, 13456, 15774 #### [facility] [address] [place] [address] Back [employer] Cook: Holden Mathur MD Basophils/100 WBC (Bld) 0.8 % Normal [facility] Comment on above: Performed By: #### 1 7306, 6399, 92634, 49648 #### [facility] [address] [place] [address] [employer] Cook: Holden Mathur MD Eosinophils (Bld) [#/Vol] 0.112 10*3/uL Normal 15-500 [facility] Comment on above: Performed By: #### 1 7306, 6399, 07093, 77218 #### [facility] [address] [address] Back [employer] Cook: Holden Mathur MD Eosinophils/100 WBC (Bld) 1.8 % Normal [facility] Comment on above: Performed By: #### 1 7306, 6399, , 98490 #### [facility] [address] [address] [employer] Cook: Holden Mathur MD Erythrocyte distribution width (RBC) [Ratio] 12.3 % Normal 11.0-15.0 [facility] Comment on above: Performed By: #### 1 7306, 6399, 76973, 65990 #### [facility] of [address], [address] [place] [address] [employer] Cook: Holden Mathur MD Hematocrit (Bld) [Volume fraction] 39.4 % Normal 35.0-45.0 [facility] Comment on above: Performed By: #### 1 7306, 6399, 03662, 75190 #### [facility] [address] [address] [employer] Cook: Holden Mathur MD Hemoglobin (Bld) [Mass/Vol] 13.2 g/dL Normal 11.7-15.5 [facility] Comment on above: Performed By: #### 1 7306, 6399, 40554, 42414 #### [facility] [address] [place] [address] Back [employer] Cook: Holden Mathur MD Lymphocytes (Bld) [#/Vol] 1.835 10*3/uL Normal 850-3900 [facility] Comment on above: Performed By: #### 1 7306, 6399, 63836, 94980 #### [facility] of [address], [address] [place] [address] Back [employer] Cook: Holden Mathur MD Lymphocytes/100 WBC (Bld) 29.6 % Normal [facility] Comment on above: Performed By: #### 1 7306, 6399, , 74168 #### [facility] [address] [place] [address] [employer] Cook: Holden Mathur MD MCH (RBC) [Entitic mass] 27.6 pg Normal 27.0-33.0 [facility] Comment on above: Performed By: #### 1 7306, 63, , 21226 #### [facility] [address] [address] Back Line Cook: Holden Mathur MD MCHC (RBC) [Mass/Vol] 33.5 g/dL Normal 32.0-36.0 [facility] Comment on above: Performed By: #### 1 7306, 63, , 20136 #### [facility] [address] [place] [address] Back [employer] Cook: Holden Mathur MD MCV (RBC) [Entitic vol] 82.4 fL Normal 80.0-100.0 [facility] Comment on above: Performed By: #### 1 7306, 63, , 87660 #### [facility] [address] [place] [address] [employer] Cook: Holden Mathur MD Monocytes (Bld) [#/Vol] 0.459 10*3/uL Normal 200-950 [facility] Comment on above: Performed By: #### 1 7306, 63, , 11314 #### [facility] [address] [address] Back [employer] Cook: Holden Mathur MD Monocytes/100 WBC (Bld) 7.4 % Normal [facility] Comment on above: Performed By: #### 1 7306, 63, , 80486 #### [facility] [address] [place] [address] Back [employer] Cook: Holden Mathur MD Neutrophils (Bld) [#/Vol] 3.745 10*3/uL Normal 9301-7588 [facility] Comment on above: Performed By: #### 1 7306, 6399, 08840, 21372 #### [facility] [address] [place] [address] Back [employer] Cook: Holden Mathur MD Neutrophils/100 WBC (Bld) 60.4 % Normal [facility] Comment on above: Performed By: #### 1 7306, 6399, 85805, 98357 #### [facility] [address], [address] [place] [address] Back Line Cook: Holden Mathur MD Platelet mean volume (Bld) [Entitic vol] 10.0 fL Normal 7.5-12.5 [facility] Comment on above: Performed By: #### 1 7306, 6399, 45894, 11178 #### [facility] [address], [address] [place] [address] Back Line Cook: Holden Mathur MD Platelets (Bld) [#/Vol] 303 10*3/uL Normal 140-400 [facility] Comment on above: Performed By: #### 1 7306, 6399, 73336, 36489 #### [facility] [address] [place] [address] Back Line Cook: Holden Mathur MD RBC (Bld) [#/Vol] 4.78 10*6/uL Normal 3.80-5.10 [facility] Comment on above: Performed By: #### 1 7306, 6399, 57395, 20777 #### [facility] [address], [address] [place] [address] Back Line Cook: Holden Mathur MD WBC (Bld) [#/Vol] 6.2 10*3/uL Normal 3.8-10.8 [facility] Comment on above: Performed By: #### 1 7306, 6399, 08796, 73639 #### [facility] [address] [place] [address] Back [employer] Cook: Holden Mathur MD TEST AUTHORIZATIONon 022 CLIENT CONTACT: YADI Sykes Normal [facility] Comment on above: Performed By: #### 1 7306, 6399, 58486, 50949 #### [facility] [address] [place] [address] Back [employer] Cook: Holden Mathur MD COMMENT Normal [facility] Comment on above: Result Comment: Plea se have the ordering physician or his or her authorized district sales representative sign a copy of this report and promptly return it by faxing it to: [phone] or by returning the form to your smocker. Performed By: #### 1 7306, 6399, 33589, 08583 #### [facility] [address], [address] [place] [address] Back [employer] Cook: Holden Mathur MD REPORT ALWAYS MESSAGE SIGNATURE Normal [facility] Comment on above: Result Comment: The laboratory testing on this patient was verbally requested or confirmed by the ordering physician or his or her authorized district sales representative after contact with an employee of [employer]. Federal regulations require that we maintain on file written authorization for all laboratory testing. Accordingly we are asking that the ordering physician or his or her authorized district sales representative sign a copy of this report and promptly return it to the client technical support associate. Signature: Performed By: #### 1 7306, 6399, 20258, 22386 #### [facility] [address], [address] [place] [address] Back Line Cook: Holden Mathur MD TEST CODE: [id number] Normal [facility] Comment on above: Performed By: #### 1 7306, 6399, 81485, 74694 #### [facility] [address] [place] [address] Back Line Cook: Holden Mathur MD TEST NAME: TSH W/REFLEX TO FT4 Normal [facility] Comment on above: Performed By: #### 1 7306, 6399, 18200, 75775 #### [facility] [address], [address] [place] [address] Back Line Cook: Holden Mathur MD TSH W/REFLEX TO FT4on 2021 TSH W/REFLEX TO FT4 1.13 mIU/L Normal [facility] Comment on above: Result Comment: Refe rence Range > or = 20 Years 0.40-4.50 Ranges First trimester 0.26-2.66 Second trimester 0.55-2.73 Third trimester 0.43-2.91 Performed By: #### 1 7306, 6399, 00473, 95034 #### [facility] [address] [facility], [address] [place] [address] Back Line Cook: Holden Mathur MD VITAMIN D,25-OH,TOTAL,IAon 0 05-24-2021 [...] D, (D2,D3), LC/MS/MS is recommended: order code [id number] (patients >2yrs). See Note 1 Note 1 For additional information, please refer to http://education.[employer]/faq/ZBG203 (This link is being provided for informational/ educational purposes only.) Performed By: #### 1 7306, 6399, 83718, 20416 #### [facility] [address] [place] [address] Back Line Cook: Holden Mathur MD COVID-19 Lab [facility] 07-08-19 21 SARS-CoV-2 (COVID-19) RNA SARAH+probe Ql (Unsp spec) Not detected Normal Not Detected [facility] Comment on above: Order Comment: Healt hcare Worker?: N Result Comment: This nucleic acid amplification test was developed and its performance characteristics determined by [employer]. Nucleic acid amplification tests include RT- PCR [...] detected) result in this assay. PERFORMED BY: [address] [place] [address] PATHOLOGIST PRESS OFFICER JADE TOMLINSON M.D. Performed By: #### C ORONAVIRUS #### [facility] , Vital Signs Date Time Vital Sign Value Performing Clinician Facility 05-09-2024 13:10-0500 Diastolic blood pressure 72 mm[Hg] Montrell Timmons [employer] Work Phone: [facility] 05-09-2024 13:10-0500 Heart rate 80 /min Montrell Timmons [employer] Work Phone: [facility] 05-09-2024 13:10-0500 Systolic blood pressure 116 mm[Hg] Montrell Timmons [employer] [facility] 05-09-2024 10:29-0500 Body height 154.9 cm Montrell Timmons [employer] Work Phone: [facility] 05-09-2024 10:29-0500 Body mass index (BMI) [Ratio] 41.8 kg/m2 Montrell Timmons [employer] Work Phone: [facility] 05-09-2024 10:29-0500 Body temperature 97.9 [degF] Montrell Timmons APRN-[employer] Work Phone: [facility] 05-09-2024 10:29-0500 Body weight 100.34 kg Montrell Timmons APRN-[employer] Work Phone: [facility] 05-09-2024 10:29-0500 SaO2% (BldA) [Mass fraction] 97 % Montrell Timmons APRN-[employer] MANAGER Work Phone: [facility] 04-11-2024 09:22-0500 Body height 154.9 cm Lashonda Kastel DPM Work Phone: [facility] 04-11-2024 09:22-0500 Body mass index (BMI) [Ratio] 42.14 kg/m2 Lashonda Kastel DPM Work Phone: [facility] 04-11-2024 09:22-0500 Body temperature 97.5 [degF] Lashonda Kastel DPM Work Phone: [facility] 04-11-2024 09:22-0500 Body weight 101.15 kg Lashonda Kastel DPM Work Phone: [facility] 04-11-2024 09:22-0500 Diastolic blood pressure 90 mm[Hg] Lashonda Kastel DPM Work Phone: [facility] 04-11-2024 09:22-0500 Heart rate 93 /min Lashonda Kastel DPM Work Phone: [facility] 04-11-2024 09:22-0500 Systolic blood pressure 146 mm[Hg] Lashonda Kastel DPM Work Phone: [facility] 04-01-2024 15:28-0500 Body temperature 96.6 [degF] Lashonda Kastel DPM Work Phone: [facility] 04-01-2024 15:28-0500 Diastolic blood pressure 81 mm[Hg] Lashonda Kastel DPM Work Phone: [facility] 04-01-2024 15:28-0500 Heart rate 77 /min Lashonda Kastel DPM Work Phone: [facility] 04-01-2024 15:28-0500 Systolic blood pressure 117 mm[Hg] Lashonda Kastel DPM Work Phone: [facility] 03-06-2024 08:54-0500 Body height 154.9 cm Mara Arnold MD Work Phone: [facility] 03-06-2024 08:54-0500 Body mass index (BMI) [Ratio] 42.14 kg/m2 Mara Arnold MD Work Phone: [facility] 03-06-2024 08:54-0500 Body weight 101.15 kg Mara Arnold MD Work Phone: [facility] 02-22-2024 10:50-0500 Body temperature 96.3 [degF] Lashonda Kastel DPM Work Phone: [facility] 02-22-2024 10:50-0500 Diastolic blood pressure 76 mm[Hg] Lashonda Kastel DPM Work Phone: [facility] 02-22-2024 10:50-0500 Heart rate 86 /min Lashonda Kastel DPM Work Phone: [facility] 02-22-2024 10:50-0500 Systolic blood pressure 105 mm[Hg] Lashonda Kastel DPM Work Phone: [facility] 02-14-2024 10:15-0500 Body height 154.9 cm [facility] 02-14-2024 10:15-0500 Body mass index (BMI) [Ratio] 41.57 kg/m2 [facility] 02-14-2024 10:15-0500 Body weight 99.79 kg [facility] 01-21-2024 11:15-0400 Body mass index (BMI) [Ratio] 43.08 kg/m2 Rao Anayeli DO Work Phone: [facility] 01-21-2024 11:15-0400 Body weight 103.42 kg Rao Anayeli DO Work Phone: [facility] 01-21-2024 11:15-0400 Diastolic blood pressure 78 mm[Hg] Rao Anayeli DO Work Phone: [facility] 01-21-2024 11:15-0400 Systolic blood pressure 122 mm[Hg] Rao Anayeli DO Work Phone: [facility] 01-14-2024 15:42-0400 Body height 154.9 cm Michael Parker MD Work Phone: [facility] 01-14-2024 15:42-0400 Body mass index (BMI) [Ratio] 42.93 kg/m2 Michael Parker MD Work Phone: [facility] 01-14-2024 15:42-0400 Body weight 103.06 kg Michael Parker MD Work Phone: [facility] 01-14-2024 15:42-0400 Diastolic blood pressure 88 mm[Hg] Michael Parker MD Work Phone: [facility] 01-14-2024 15:42-0400 Heart rate 77 /min Michael Parker MD Work Phone: [facility] 01-14-2024 15:42-0400 Systolic blood pressure 132 mm[Hg] Michael Parker MD Work Phone: [facility] 05-14-2023 10:59-0500 Body mass index (BMI) [Ratio] 37.94 kg/m2 Roman Cornell MD Work Phone: [facility] 05-14-2023 10:59-0500 Body weight 91.08 kg Roman Cornell MD Work Phone: [facility] 05-14-2023 10:59-0500 Diastolic blood pressure 68 mm[Hg] Roman Cornell MD Work Phone: [facility] 05-14-2023 10:59-0500 Heart rate 87 /min Roman Cornell MD Work Phone: [facility] 05-14-2023 10:59-0500 Systolic blood pressure 108 mm[Hg] Roman Cornell MD Work Phone: [facility] 03-23-2022 16:07-0500 Body weight 81.1944 kg YADI YO . [facility] Comment on above: Performed By: #### AFPMAT #### [facility] [address] [place] [address] Dr. Yassine Zarate Encounters Encounter Date Encounter Type Care Provider Facility Start: 05-13-2024 End: 05-13-2024 Bamboo flowsheet Rao Anayeli DO Work Phone: [facility] Start: 05-13-2024 End: 05-13-2024 Bamboo flowsheet Rao Anayeli DO Work Phone: [facility] Start: 05-10-2024 End: 05-10-2024 Office outpatient visit 25 minutes Augustina Interiano MD Work Phone: [facility] Comment on above: Anxiety disorder, un specified type (Primary Dx); Recurrent major depressive disorder, in partial remission ([facility]) Start: 05-10-2024 End: 05-10-2024 ambulatory AUGUSTINA INTERIANO [facility] Start: 05-09-2024 End: 05-09-2024 Office outpatient visit 25 minutes Montrell Timmons APRN-[employer]SI[employer]GER Work Phone: [facility] Comment on above: Pre-op evaluation (P rimary Dx); KESHIA (obstructive sleep apnea); Class 3 severe obesity due to excess calories with serious comorbidity and body mass index (BMI) of 40.0 to 44.9 in adult ([facility]); Mixed anxiety and depressive disorder; Carpal tunnel syndrome of right wrist; Near syncope; Elevated LFTs Start: 05-09-2024 End: 05-09-2024 Preprocedural examination done Montrell Timmons [employer] MANAGER Work Phone: [facility] Work Phone: Start: 05-09-2024 End: 05-09-2024 ambulatory [facility] Start: 05-01-2024 End: 05-01-2024 Orders Only Montrell Timmons [employer] MANAGER Work Phone: [facility] Start: 04-14-2024 End: 04-14-2024 [facility] Start: 04-11-2024 End: 04-11-2024 Postop follow up visit related to original px Lashonda Barbosal DPM Work Phone: [facility] Comment on above: Onychocryptosis (Jimena ralph Dx); Pain in right foot; Left foot pain Start: 04-11-2024 End: 04-11-2024 [facility] Start: 04-01-2024 End: 04-01-2024 Patient encounter procedure Lashonda Rosstel DPM Work Phone: [facility] Comment on above: Onychocryptosis (Jimena ralph Dx); Pain in right foot; Left foot pain Start: 04-01-2024 End: 04-01-2024 [facility] Start: 03-20-2024 End: 03-20-2024 Office outpatient visit 10 minutes Montrell Timmons [employer]SI[employer] SH[employer] MANAGER Work Phone: [facility] Comment on above: Blurry vision, bilat eral (Primary Dx); Chronic migraine without aura without status migrainosus, not intractable; Mixed anxiety and depressive disorder; Dizziness Start: 03-20-2024 End: 03-20-2024 ambulatory [facility] Start: 03-13-2024 End: 03-13-2024 Office outpatient visit 15 minutes Mari Arora MD Work Phone: [facility] Comment on above: Incarcerated ventral hernia (Primary Dx) Start: 03-13-2024 End: 03-13-2024 ambulatory [facility] Start: 03-06-2024 End: 03-06-2024 ambulatory [facility] Start: 03-06-2024 End: 03-06-2024 Office outpatient new 45 minutes Mara Anrold MD Work Phone: [facility] Comment on above: Bilateral carpal beth sirisha syndrome (Primary Dx) Start: 02-26-2024 End: 02-26-2024 Evaluation and management of inpatient [facility] Start: 02-26-2024 End: 02-26-2024 Evaluation and management of inpatient [facility] Start: 02-22-2024 End: 02-22-2024 Office outpatient new 30 minutes Lashonda Dia DPM Work Phone: [facility] [facility] Comment on above: Onychocryptosis (Jimena ralph Dx); Pain in right foot; Left foot pain Start: 02-22-2024 End: 02-22-2024 ambulatory LASHONDA D KASTEL [facility] Start: 02-14-2024 End: 02-14-2024 Admission to [facility] Phone Call Provider 3 [facility] Pre-Admission Clinic On [facility] Start: 02-14-2024 End: 02-14-2024 Evaluation and management of inpatient [facility] Start: 02-11-2024 End: 02-11-2024 ambulatory [facility] Start: 02-11-2024 End: 02-11-2024 Office consultation new/estab patient 60 min Mari Arora MD Work Phone: [facility] Comment on above: Incarcerated ventral hernia (Primary Dx) Start: 02-06-2024 End: 02-06-2024 ambulatory [facility] Start: 01-28-2024 End: 01-28-2024 ambulatory Puct [facility] Comment on above: E-Visit for Sinus In fection Start: 01-21-2024 End: 01-21-2024 Bamboo flowsheet Rao Anayeli DO Work Phone: [facility] Start: 01-21-2024 End: 01-21-2024 Bamboo flowsheet Rao Anayeli DO Work Phone: [facility] Start: 01-21-2024 End: 01-21-2024 ambulatory RAO ANAYELI Not Available Start: 01-21-2024 End: 01-21-2024 Office outpatient visit 15 minutes Rao Anayeli DO Work Phone: [facility] Comment on above: Postop check; Incisional hernia, without obstruction or gangrene Start: 01-14-2024 End: 01-14-2024 Office outpatient new 45 minutes Michael Parker MD Work Phone: [facility] Comment on above: Mixed stress and urg e urinary incontinence (Primary Dx); History of fourth degree perineal laceration; Incontinence of feces with fecal urgency; Perineal pain; Urinary frequency Start: 01-14-2024 End: 01-14-2024 ambulatory MICHAEL PARKER [facility] Start: 12-13-2023 End: 12-13-2023 ambulatory [facility] Start: 12-13-2023 Encounter for genera l adult medical examination without abnormal findings ELI[facility] Start: 12-13-2023 End: 12-13-2023 ambulatory [facility] Start: 12-13-2023 Encounter for genera l adult medical examination without abnormal findings [facility] Start: 11-06-2023 End: 11-06-2023 ambulatory YADI YO Not Available Start: 10-22-2023 End: 10-22-2023 ambulatory [facility] Start: 10-01-2023 End: 10-01-2023 ambulatory RAO ANAYELI Not Available Start: 09-21-2023 End: 09-21-2023 ambulatory RAO R [facility] Start: 09-19-2023 End: 09-19-2023 ambulatory RAO ANAYELI Not Available Start: 09-17-2023 End: 09-17-2023 Emergency department patient visit BEBO AVILA [facility] Start: 09-12-2023 End: 09-12-2023 ambulatory ROMAN MIRZAMAGDY [facility] Start: 09-03-2023 End: 09-03-2023 ambulatory RAO ANAYELI Not Available Start: 08-30-2023 End: 09-03-2023 ambulatory [facility] Start: 08-28-2023 End: 08-28-2023 ambulatory [facility] Start: 08-20-2023 End: 08-20-2023 ambulatory [facility] Start: 08-20-2023 Encounter for other specified special examinations MANUEL [facility] Start: 08-20-2023 End: 08-20-2023 ambulatory [facility] Start: 08-10-2023 End: 08-10-2023 ambulatory [facility] R [facility] Start: 08-09-2023 End: 08-09-2023 ambulatory RAO ANAYELI Not Available Start: 07-23-2023 End: 07-23-2023 ambulatory RAO ANAYELI Not Available Start: 07-02-2023 End: 07-02-2023 ambulatory YADI YO Not Available Start: 06-23-2023 End: 06-23-2023 ambulatory MONTRELL L IAIN [facility] Start: 06-23-2023 End: 06-24-2023 ambulatory [facility] Start: 06-13-2023 End: 06-13-2023 ambulatory [facility] Start: 06-07-2023 End: 06-07-2023 Emergency department patient visit BEBO AVILA [facility] Start: 06-04-2023 End: 06-04-2023 ambulatory RAOJaki CONCEPCIONO Not Available Start: 05-23-2023 End: 05-23-2023 ambulatory [facility] Start: 05-14-2023 End: 05-14-2023 Office consultation new/estab patient 60 min Roman Cornell MD Work Phone: [facility]- Medicine at [facility] Comment on above: 19 weeks gestation o f (Primary Dx); Mixed anxiety and depressive disorder; Depression affecting ; Anxiety during ; Hx of maternal laceration, 4th degree, currently ; headache in second trimester; Obesity affecting in second trimester, unspecified obesity type Start: 05-14-2023 End: 05-14-2023 ambulatory [facility] Start: 05-11-2023 Chart abstracting Roman paez MD Work Phone: [facility]- Medicine at [facility] Start: 05-07-2023 Bamboo flowsheet Yadi MEHTA Work Phone: [facility] Start: 05-07-2023 Bamboo flowsheet Yadi MEHTA Work Phone: [facility] Start: 05-07-2023 External Result Encounter Yadi MEHTA Work Phone: [facility] External Department Unsolicited Start: 05-07-2023 End: 05-07-2023 ambulatory AYDI YO Not Available Start: 04-09-2023 End: 04-09-2023 ambulatory RAO ANAYELI Not Available Start: 03-09-2023 End: 03-09-2023 ambulatory RAO ANAYELI Not Available Start: 08-07-2022 End: 08-07-[address] TAY YEUNG Facility:[facility] Start: 08-02-2022 End: 08-05-2022 Evaluation and management of inpatient DR RAO GUADALUPE . Facility:[facility] Start: 07-06-2022 End: 07-06-[address] RAO GUAADLUPE . Facility:[facility] Start: 06-15-2022 End: 06-16-[address] VILMA COBURN Facility:[facility] Start: 06-02-2022 End: 06-02-[address] GILL THOMPSON . Facility:[facility] Start: 04-20-2022 End: 04-20-[address] RAO GUADALUPE . Facility:[facility] Start: 04-20-2022 End: 04-21-2022 ambulatory YADI YO . Facility:[facility] Start: 03-21-2022 End: 03-22-[address] RAO GUADALUPE . Facility:[facility] Start: 01-17-2022 End: 01-18-[address] RAO GUADALUPE . Facility:[facility] Start: 12-29-2021 End: 12-30-[address] RAO GUADALUPE . Facility:[facility] Start: 11-12-2021 End: 11-13-[address] BEBO JORGE Facility:[facility] Start: 11-09-2021 End: 11-10-2021 ambulatory MONTRELL TIMMONS Facility: Procedures Date Procedure Procedure Detail Performing Clinician Start: 05-09-2024 Ecg routine ecg w/le ast 12 lds w/i&r Montrell Timmons [employer] Work Phone: Start: 04-11-2024 End: 04-11-2024 Psychiatric diagnostic eval w/medical services Anxiety disorder, unspecified type Augustina Interiano MD Work Phone: Comment on above: Anxiety disorder, un specified type (Primary Dx); Recurrent major depressive disorder, in partial remission ([facility]) Start: 03-06-2024 Injection therapeuti c carpal tunnel Mara Arnold MD Work Phone: Start: 01-14-2024 MEASURE POST VOID RESIDUAL Michael Parker MD Work Phone: Start: 01-14-2024 Urnls dip stick/tabl et rgnt non-auto w/o micrscp Michael Parker MD Work Phone: Start: 12-13-2023 Adult depression screening assessment Michael Parker MD Work Phone: Start: 05-23-2023 End: 05-23-2023 Ophth medical xm&eval compre new pt 1/> vst Myopia of both eyes [facility] OD Work Phone: Comment on above: Myopia of both eyes (Primary Dx); Regular astigmatism of left eye Start: 05-07-2023 URETHRITIS/DISCHARGE PLUS VAGINITIS (HTRX) Yadi MEHTA Work Phone: Start: 03-15-2023 Adult depression screening assessment Roman Cornell MD Work Phone: Start: 03-09-2023 FREE CELL DNA (NON-[facility]) Not In System Ref Prov Start: 08-03-2022 Delivery of Products of Conception, External Approach YADI YO . Start: 08-03-2022 Division of Female Perineum, External Approach YADI YO . Start: 08-03-2022 Drainage of Amniotic Fluid, Therapeutic from Products of Conception, Via Natural or Artificial Opening YADI YO . Start: 08-03-2022 Introduction of Othe r Hormone into Peripheral Vein, Percutaneous Approach YADI YO . Start: 04-20-2022 Microscopic observat ion [Identifier] in Cervix by Cyto stain Yadi MEHTA Work Phone: Plan of Treatment Date Care Activity Detail Author Start: 04-20-2027 Screening for malign ant neoplasm of cervix [facility] Start: 05-09-2025 Adult BMI Screening Adult BMI Screen ing [facility] Start: 05-09-2025 Tobacco Screening Tobacco Screening [facility] Start: 04-20-2025 Screening for malign ant neoplasm of cervix Pap Smear [facility] Start: 04-14-2025 Adult BMI Screening Adult BMI Screen ing [facility] Start: 04-11-2025 Adult BMI Screening Adult BMI Screen ing [facility] Start: 04-11-2025 Tobacco Screening Tobacco Screening [facility] Start: 04-01-2025 Tobacco Screening Tobacco Screening [facility] Start: 03-06-2025 Adult BMI Screening Adult BMI Screen ing [facility] Start: 03-06-2025 Tobacco Screening Tobacco Screening [facility] Start: 02-21-2025 Tobacco Screening Tobacco Screening [facility] Start: 02-13-2025 Adult BMI Screening Adult BMI Screen ing [facility] Start: 01-15-2025 Tobacco Screening Tobacco Screening [facility] Start: 01-13-2025 Adult BMI Screening Adult BMI Screen ing [facility] Start: 01-13-2025 Tobacco Screening Tobacco Screening [facility] Start: 12-12-2024 Depression Screening Depression Scre ening [facility] Start: 10-21-2024 End: 10-21-2024 Patient encounter procedure 10/21/2024 3:45 PM EDT [facility] Visit [facility] [address] [phone] Lorie Johnson, [employer] [address] [facility], [address] [address] [facility] Start: 07-14-2024 End: 07-14-2024 Patient encounter procedure 07/14/2024 3:00 PM EDT Office Visit [facility] [address] [place] [phone] Mara Arnold MD [address] [place] [address] [facility] Start: 06-16-2024 End: 06-16-2024 Patient encounter procedure 06/16/2024 3:50 PM EDT Office Visit [facility] [address] [place] [address] Mara Arnold MD [address] [place] [phone] [facility] Start: 05-30-2024 End: 05-30-2024 Patient encounter procedure 05/30/2024 2:45 PM EST Office Visit [facility] [address] [place] [phone] [facility] [address] [address] [facility] Start: 05-23-2024 Tobacco Screening Tobacco Screening [facility] Start: 05-14-2024 Adult BMI Screening Adult BMI Screen ing [facility] Start: 05-14-2024 Tobacco Screening Tobacco Screening [facility] Start: 05-13-2024 End: 05-13-2024 Patient encounter procedure 05/13/2024 8:30 AM EST Office Visit [facility] [address] [place] [phone] Rao Guadalupe DO [address] [place] [address] [facility] Start: 05-10-2024 End: 05-10-2024 Telemedicine consultation with patient 05/10/2024 10:00 AM EST Telemedicine [facility] [address] [place] [phone] Augustina Interiano MD [address] [place] [address] [facility] Start: 05-09-2024 End: 05-09-2025 Event monitor Event monitor Cardiac Services Routine Near syncope Expected: 05/09/2024, Expires: 05/09/2025 [facility] Work Phone: Comment on above: Expected: 05/09/2024 , Expires: 05/09/2025 Start: 05-09-2024 End: 05-09-2025 US Abdomen limited Ultrasound abdomen limited Imaging Routine Elevated LFTs Expected: 05/09/2024, Expires: 05/09/2025 [facility] Comment on above: Expected: 05/09/2024 , Expires: 05/09/2025 Start: 05-09-2024 End: 05-09-2024 Patient encounter procedure 05/09/2024 10:40 AM EST Office Visit [facility] - Family Medicine [address] [place] [address] Montrell Timmons, [employer] [address] [place] [address] [facility] - Family [facility] Start: 04-14-2024 End: 04-14-2024 Patient encounter procedure 04/14/2024 5:30 AM EST Appointment [facility] [address] [place] [address] [facility] Start: 04-14-2024 Subsequent hospital visit by physician 04/14/2024 5:30 AM EST Hospital Encounter [facility] [address] [place] [address] [facility] Start: 04-11-2024 End: 04-11-2024 Telemedicine consultation with patient 04/11/2024 10:00 AM EST [facility]medicine [facility] [address] [place] [address] Augustina Interiano MD [address] [place] [phone] [facility] Start: 04-11-2024 End: 04-11-2024 Patient encounter procedure 04/11/2024 9:15 AM EST Office Visit [facility] [address] [facility] [address] [place] [phone] Lashonda Dia DPM [address] [facility] [address] [place] [phone] [facility] Start: 04-01-2024 End: 04-01-2024 Patient encounter procedure 04/01/2024 3:30 PM EST Procedure visit [facility] [address] [facility] [address] [place] [phone] Lashonda Dia DPM [address] [facility] [address] [place] [phone] [facility] Start: 03-20-2024 End: 03-20-2025 MR Brain WO contrast MR brain without contrast Imaging Routine Blurry vision, bilateral Chronic migraine without aura without status migrainosus, not intractable Expected: 03/20/2024, Expires: 03/20/2025 [facility] Work Phone: Comment on above: Expected: 03/20/2024 , Expires: 03/20/2025 Start: 03-15-2024 Adult BMI Screening Adult BMI Screen ing [facility] Start: 03-15-2024 [facility] Start: 03-10-2024 End: 03-10-2024 Patient encounter procedure 03/10/2024 9:15 AM EST Office Visit [facility] [address] [place] [address] [address] [place] [phone] Mari Arora MD [address] [place] [address] [address] [place] [address] [facility] Start: 03-06-2024 End: 03-06-2024 Patient encounter procedure 03/06/2024 8:40 AM EST Office Visit [facility] [place] [facility] [address] [facility] [address] [place] [phone] Mara Arnold MD [address] [facility] [place] [address] [facility] Start: 02-26-2024 End: 02-26-2024 Admission to same day surgery center 02/26/2024 8:00 AM EST - 02/26/2024 10:30 AM EST Surgery [facility] Surgery [address] [place] [address] Mari Arora MD [address] [place] [address] [address] [place] [address] DAVINCI REPAIR HERNIA VENTRAL [facility] Surgery Comment on above: DAVINCI REPAIR HERNI A VENTRAL Start: 02-26-2024 End: 02-26-2024 DAVINCI REPAIR HERNIA UMBILICAL DAVINCI REPAIR HERNIA UMBILICAL VENTRAL AND UMBILICAL HERNIA 02/26/2024 8:00 AM EST [facility] Start: 02-26-2024 End: 02-26-2024 DAVINCI REPAIR HERNIA VENTRAL DAVINCI REPAIR HERNIA VENTRAL VENTRAL AND UMBILICAL HERNIA 02/26/2024 8:00 AM EST [facility] Start: 02-26-2024 End: 02-26-2024 REPAIR HERNIA UMBILICAL REPAIR HERNIA UMBILICAL VENTRAL AND UMBILICAL HERNIA 02/26/2024 8:00 AM EST [facility] Start: 02-26-2024 End: 02-26-2024 REPAIR HERNIA VENTRAL REPAIR HERNIA VENTRAL VENTRAL AND UMBILICAL HERNIA 02/26/2024 8:00 AM EST [facility] Start: 02-26-2024 Subsequent hospital visit by physician 02/26/2024 8:00 AM EST Hospital Encounter [facility] Surgery [address] [place] [phone] Mari Arora MD [address] [address] [facility] - Surgery Start: 02-22-2024 End: 02-22-2024 Patient encounter procedure 02/22/2024 10:30 AM EST [facility] [address] [facility] [address] [place] [address] Lashonda Dia, DP [address] [facility] [address] [place] [address] [facility] Start: 02-11-2024 End: 02-11-2024 Patient encounter procedure 02/11/2024 10:30 AM EST Office Visit [facility] General Surgery [address] [place] [phone] Mari Arora MD [address] [place] [address] [facility] General Surgery Start: 02-09-2024 Tobacco Screening Tobacco Screening [facility] Start: 02-06-2024 End: 02-06-2024 Patient encounter procedure 02/06/2024 11:00 AM EST Appointment [facility] [address] [place] [address] [facility] [place] Start: 01-21-2024 End: 01-20-2025 CT Abdomen and Pelvis WO and W contrast IV CT abdomen pelvis w and wo IV contrast Imaging Routine Incisional hernia, without obstruction or gangrene Expected: 01/21/2024, Expires: 01/20/2025 [facility] Work Phone: Comment on above: Expected: 01/21/2024 , Expires: 01/20/2025 Start: 12-02-2023 COVID-19 Vaccine ( season) COVID-19 Vaccine ( season) [facility] Start: 12-02-2023 COVID-19 Vaccine ( season) COVID-19 Vaccine ( season) [facility] Start: 12-02-2023 Influenza vaccination [facility] Start: 06-13-2023 End: 06-13-2023 Patient encounter procedure 06/13/2023 8:00 AM EDT Appointment [facility] [address] [place] [address] [facility] Start: 06-04-2023 End: 06-04-2023 Patient encounter procedure 06/04/2023 10:20 AM EST Routine [facility] [address] [place] [address] Rao Guadalupe, [address] [place] [address] [facility] Start: 05-23-2023 End: 05-23-2023 Patient encounter procedure 05/23/2023 3:00 PM EST Office Visit [facility] [address] [place] [phone] [facility] [address] [address] [facility] Start: 05-16-2023 End: 05-16-2023 Telemedicine consultation with patient 05/16/2023 9:30 AM EST Telemedicine [facility] [address] [place] [phone] Augustina Interiano MD [address] [place] [phone] [facility] Start: 05-14-2023 End: 05-14-2023 Patient encounter procedure 05/14/2023 11:00 AM EST Office Visit M[facility]- Medicine at [facility] [address] [place] [phone] Roman Cornell MD [address], [address] [place] [address], [place] [address] M[facility]- Medicine at [facility] Start: 05-14-2023 Subsequent hospital visit by physician 05/14/2023 10:00 AM EST Hospital Encounter [facility] [address] [place] [phone] [facility] Start: 05-07-2023 End: 05-07-2023 Patient encounter procedure 05/07/2023 10:30 AM EST Routine [facility] [address] [facility] [address] Yadi Yo PA [address] [facility] [place] [address] Arrived [facility] Comment on above: Arrived Start: 12-01-2022 COVID-19 Vaccine ( season) COVID-19 Vaccine ( season) [facility] Start: 12-01-2022 Influenza vaccination [facility] Start: 11-17-2019 DTaP,Tdap and Td Vaccines (7 - Td or Tdap) DTaP,Tdap and Td Vaccines (7 - Td or Tdap) [facility] Start: 2010 Adult BMI Follow Up Plan Adult BMI Follow Up Plan [facility] End: 05-09-2025 Comprehensive metabolic 2000 panel - Serum or Plasma Comprehensive metabolic panel Lab Routine Elevated LFTs 1 Occurrences starting 05/09/2024 until 05/09/2025 [facility] Comment on above: 1 Occurrences starti ng 05/09/2024 until 05/09/2025 Immunizations Immunization Date Immunization Notes Care Provider Fa cility 02-20-2024 influenza virus vaccine, unspecified formulation aRo Guadalupe DO Work Phone: [facility] 04-25-2023 influenza virus vaccine, unspecified formulation Yadi MEHTA Work Phone: [facility] 08-23-2020 COVID-19, mRNA, LNP- S, PF, 100mcg/0.5mL Dose Roman Cornell MD Work Phone: [facility] 07-26-2020 COVID-19, mRNA, LNP- S, PF, 100mcg/0.5mL Dose Roman Cornell MD Work Phone: [facility] Payers Date Payer Category Payer Medicaid [id number] 2021 [facility] [id number] [facility] Managed Care - PPO ANTHEM [id number] 2021 Unknown [id number]. 1.13.693.2. [id number] 2019 Medicaid [id number] 2018 Unknown [id number] 2016 Unknown [id number] 1992 Unknown [id number] 2.16.840.1.468993.3.579.2. 593 1992 Unknown [id number] 2.16.840.1.719118.3.579.2. 593 1992 Unknown [id number] 2.16.840.1.581701.3.579.2. 593 1992 Unknown [id number] 2.16.840.1.864832.3.579.2. 593 1992 Unknown [id number] 2.16.840.1.697462.3.579.2. 593 1992 Unknown [id number] 2.16.840.1.988805.3.579.2. 593 1992 Unknown [id number] 2.16.840.1.578896.3.579.2. 593 1992 Unknown [id number] 2.16.840.1.719407.3.579.2. 593 1992 Unknown [id number] 2.16.840.1.285088.3.579.2. 593 1992 Unknown [id number] 2.16.840.1.135942.3.579.2. 593 1992 Unknown [id number] 2.16.840.1.084995.3.579.2. 593 1992 Unknown [id number] 2.16.840.1.103138.3.579.2. 593 1992 Unknown [id number] 2.16.840.1.031820.3.579.2. 593 1992 Unknown [id number] 2.16.840.1.952767.3.579.2. 1286 1992 Unknown [id number] 2.16.840.1.895525.3.579.2. 125 1992 Unknown [id number] 2.16.840.1.660147.3.579.2. 125 1992 Unknown [id number] 2.16.840.1.572436.3.579.2. 1258 1992 Unknown [id number] 2.16.840.1.284608.3.579.2. 1258 1992 Unknown [id number] 2.16.840.1.286409.3.579.2. 1258 1992 Unknown [id number] 2.16.840.1.551691.3.579.2. 125 1992 Unknown [id number] 2.16.840.1.088211.3.579.2. 1258 1992 Unknown [id number] 2.16.840.1.132823.3.579.2. 125 1992 Unknown [id number] 2.16.840.1.770559.3.579.2. 125 1992 Unknown [id number] 2.16.840.1.675178.3.579.2. 125 1992 Unknown [id number] 2.16.840.1.486560.3.579.2. 1258 1992 Unknown [id number] 2.16.840.1.768157.3.579.2. 125 1992 Unknown [id number] 2.16.840.1.393808.3.579.2. 128 1992 Unknown [id number] 2.16840.1.259967.3.579.2. 1285 1992 Unknown [id number] 2.16840.1.768063.3.579.2. 1285 1992 Unknown [id number] 2.16840.1.977535.3.579.2. 1285 1992 Unknown [id number] 2.16840.1.543729.3.579.2. 1285 1992 Unknown [id number] 2.16840.1.803766.3.579.2. 1285 1992 Unknown [id number] 2.840.1.828126.3.579.2. 1285 1992 Unknown [id number] 2.840.1.686245.3.579.2. 1285 1992 Unknown [id number] 2.840.1.378413.3.579.2. 1285 1992 Unknown [id number] 2.840.1.491416.3.579.2. 1285 1992 Unknown [id number] 2.840.1.443873.3.579.2. 1285 1992 Unknown [id number] 2.840.1.833559.3.579.2. 1285 1992 Unknown [id number] 2.840.1.709041.3.579.2. 1285 1992 Unknown [id number] 2.840.1.653039.3.579.2. 1285 1992 Unknown [id number] 2.16840.1.019579.3.579.2. 1285 1992 Unknown [id number] 2.16840.1.918017.3.579.2. 1285 1992 Unknown [id number] 216840.1.911191.3.579.2. 1285 1992 Unknown [id number] 2.16840.1.085866.3.579.2. 1285 1992 Unknown [id number] 2.16840.1.144975.3.579.2. 1285 1990 Unknown [id number] 2.16840.1.030274.3.579.2. 1285 1990 Unknown [id number] 2.16840.1.686595.3.579.2. 1285 1992 Unknown [id number] 2.16840.1.355464.3.579.2. 1285 1992 Unknown [id number] 2.840.1.591878.3.579.2. 1285 1992 Unknown [id number] 2.840.1.278159.3.579.2. 1285 1992 Unknown [id number] 2.840.1.894515.3.579.2. 1285 1992 Unknown [id number] 2.840.1.915554.3.579.2. 1285 1992 Unknown [id number] 2.840.1.770237.3.579.2. 1285 1992 Unknown [id number] 2.840.1.184177.3.579.2. 1285 1992 Unknown [id number] 2.16840.1.430326.3.579.2. 1285 1992 Unknown [id number] 2.840.1.912559.3.579.2. 1285 1992 Unknown [id number] 2.16840.1.064934.3.579.2. 1285 1992 Unknown [id number] 2.16840.1.325927.3.579.2. 1285 1992 Unknown [id number] 2.16840.1.464881.3.579.2. 1286 1992 Unknown [id number] 2.16.840.1.684687.3.579.2. 1286 1992 Unknown [id number] 2.16.840.1.642793.3.579.2. 1286 1992 Unknown [id number] 2.16.840.1.250694.3.579.2. 1285 1992 Unknown [id number] 2.16.840.1.400708.3.579.2. 1286 1992 Unknown [id number] 2.16.840.1.211753.3.579.2. 1285 1992 Unknown [id number] 2.16.840.1.993661.3.579.2. 1286 1992 Unknown [id number] 2.16.840.1.333703.3.579.2. 1285 1992 Unknown [id number] 2.16.840.1.997582.3.579.2. 1286 1992 Unknown [id number] 2.16.840.1.094954.3.579.2. 1286 1959 Self-pay 1959 Unknown [id number] 1959 Unknown [id number] Unknown [id number] 2.16.840.1.444528.3.579.2. 593 Social History Date Type Detail Facility Start: 09-11-2022 End: 10-01-2023 Tobacco smoking status IDIS Ex-smoker [facility] History of tobacco use Current smoker [facility] History of tobacco use Cigarette [facility] Start: 04-09-2023 End: 05-09-2024 Alcohol intake Current drinker of alcohol (finding) [facility] Start: 12-18-2022 End: 10-01-2023 History of Social function [facility] Start: 12-18-2022 End: 10-01-2023 Tobacco use panel [facility] Start: 09-11-2022 Alcohol Comment monthly or less [facility] Start: 01-12-2023 [facility] Start: 1990 Sex Assigned At Female [facility] Start: 09-12-2022 Gender identity Identifies as female gender (finding) [facility] Start: 02-08-2023 End: 10-01-2023 Tobacco use and exposure Smokeless tobacco non-user [facility] Start: 05-11-2023 End: 01-21-2024 Alcohol intake Ex-drinker (finding) [facility] How hard is it for y ou to pay for the very basics like food, housing, medical care, and heating Not hard at all [facility] Start: 02-08-2023 Alcohol Comment Occasional [facility] Start: 1990 Sex Assigned At Not on file [facility] History of tobacco use Tobacco U se Types Packs/Day Years Used Date Smoking Tobacco: Former Cigarettes 0.5 10 Vaping/E-cigarettes Smokeless Tobacco: Never [facility] Start: 11-05-2014 Sex Female (finding) [facility] How often to you hav e a drink containing alcohol? Monthly or less [facility] Medical Equipment Procedure Code Equipment Code Equipment Origin al Text Equipment Identifier Dates Mesh Rnd Pp Pcl Macroporous Parietene Ds 12cm 2.4mm Comp Abs Rpl [id number] - [id number] Start: 02-26-2024 Goals Date Patient Goal Desired Activity /State Personal health goal Clinical Notes 05-14-2023 to 05-10-2024 Psychiatric Progress Note - Augustina Interiano MD - 05/10/2024 10:00 AM ESTPsychiatric Progress Note - Augustina Interiano MD - 05/10/2024 10:00 AM Volodymyr Timmons APRN-RODRICK - 05/09/2024 10:40 AM EST Note Date & Type Note Facility 05-10-2024 Miscellaneous Notes [id number] [facility] [id number] Patient: Arabella Hernandez Date of : 1990 Encounter Date: 05/10/2024 History of Present Illness (Subjective): The patient is a 33 y.o. female, an established patient patient, and is here for medication management. This call is considered an audio/visual technology visit, which is to help assess your current healthcare needs and to determine the appropriate care you may require. This visit may be a billable service through your insurance company. Do you consent to moving forward with this audio/visual technology visit? Yes HPI: Follow up for medication management. Chart and labs were reviewed. Pt reported that she is doing good with current medication. But she gets anxious sometimes. Is not seeing therapist currently as she is doing good. Is breast feeding of her 7 months old daughter. She also took Lexapro during her last . Has 3 children (8 y/o daughter, 21 months old son and and 7 months old daughter). Is breast feeding. was finalized with (father of 8 y/o daughter and 21 months old son). Has share custody with ex . Is living with boyfriend (father of 7 months old daughter). Works as needed at [employer]. As per previous note Chart and labs were reviewed. Last time patient was seen for initial psychiatric evaluation on 03/15/2023. Patient reported that she is here to get refill of Lexapro 20 mg PO daily. She is getting refill from her SENIOR ADMINISTRATIVE SERVICES OFFICER who recommended to see psychiatrist and get refill. Has been taking Lexapro since 04/2023. She also took Lexapro during her last . Stopped taking Zoloft on 04/2023 as she did not like. Pt reported that she is doing good with current medication . As per previous note Chart and labs were reviewed. As per note of JEANINE Dai, PCP on 02/08/23 Patient following up for depression anxiety today as this has gotten much worse with panic attacks but she recently found out she was about 5 weeks . She is not willing to start any medications for anxiety while she is until she talks to her OBGYN. She is also 6 months and she is a . She recently moved to [place] and is wanting a primary care referral. She is going through a divorce and her current is with her new relationship . Has 7 months old boy and is not for last 1 month. Has 6 yr old daughter with ex boyfriend. Going through divorce with 7 months old son's and is since 05/2022. She was for more than 1 yr. Relocated to [place] on 08/2022 from [place] for boyfriend of 10 months. Currently patient is with boyfriend. They want to continue . THA is 10/05/23. Has depression and anxiety since 2016. Since then she has been seen by several therapists and a psychiatrist. Last appointment with psychiatrist was 2 and 1/2 yrs ago. Last appointment with therapist 1 and 1/2 yrs ago. Pt was on Lexapro (few weeks and stopped taking it because 6 yrs ago), Wellbutrin (caused irritability), Ativan (helpful) and Cymbalta (caused foggy vision and took for 6 months). Off medication for last 1 and 1/2 yrs. Has restarted medication since 03/2023 which is prescribed by her SENIOR ADMINISTRATIVE SERVICES OFFICER. Patient was seen by Maine Meneses LPN on 03/09/23 for initial visit. Has monthly appointment with SENIOR ADMINISTRATIVE SERVICES OFFICER. Has thought of it would be better not be here off and on for last few months as she is going through financial crisis. Last thought was few weeks ago. Denied any suicidal ideations. Denied any access of guns or weapons. Pt is currently on Lexapro 20 mg PO daily. Compliant with medication with no side effects. Sleep is good. Depression is 1/10 and anxiety is 4/10 (10 being the worst). No panic attack. No mood swing. Currently Pt denied suicidal/homicidal ideation, plan, intent and also denied auditory/visual hallucination. Pt also denied any symptoms of donna and psychosis. No hx of suicidal attempt in the past. In 2016 she cut herself once as she was upset with ex boyfriend. Mother has hx of depression and anxiety. Maternal grandfather committed suicide in 2019 by shot gun. No hx of convulsion, head injury, concussion and eating d/o Patient denied she has any thought of harming her baby. Does not have any thought of anyone will harm her baby too. Patient's boyfriend ( baby's father) is supportive. Discussed regarding infanticide. Pt was advised to call 911 or go to nearby ER or share with her BF if she feels baby is not safe or if she wants to harm or hurt her baby. Pt endorsed to understand the discussion. Weigh the risk and benefit of Lexapro on . Lexapro will be continued. Patient was informed Lexapro may be present in milk according to some studies. If child becomes irritable or sedated, breast feed or drug may need to be discontinued. Oil Heater Operator must need to be informed. Patient endorsed to understand the discussion. LMP: not have period yet after delivery of baby 7 months ago. Partner takes precaution. Medications: denied Increased the dose of Lexapro from 20 mg to 30 mg PO daily for anxiety and depression. Pt will take 1 and 1/2 tablets for Lexapro 20 mg (30 mg). 1. Anxiety disorder, unspecified type 2. Recurrent major depressive disorder, in partial remission (CMS-HCC) AIMS none present PHQ 9 = Other Scales used: HAM-A Geriatric Depression Scale: Adult ADD Checklist: Craven Suicide Severity Rating Scale (C-SSRS): low risk Recommendations for Additional Therapies: individual therapy Follow up: 4 weeks Psychotherapy: Provided Supportive therapy during the session helping patient cope with ongoing difficulties and building confidence and provided encouragement for improvements that patient is doing to continue to move forward towards goals and enjoys day-to-day activities Therapy time: 18-20 mins Past Medical, Family, and Social History Update: The following portions of the patient's history were reviewed and updated as appropriate: allergies, current medications, past family history, past medical history, past social history, past surgical history and problem list. Past Medical History: Diagnosis Date Anxiety Carpal tunnel syndrome Depression Enlarged ovary GERD (gastroesophageal reflux disease) Low back pain Obesity Sleep apnea cpap Visual impairment Past Surgical History: Procedure Laterality Date SECTION 09/24/2023 DAVINCI REPAIR HERNIA UMBILICAL WITH MESH N/A 02/26/2024 Performed by Mari Arora MD at [facility] DAVINCI REPAIR HERNIA VENTRAL WITH MESH N/A 02/26/2024 Performed by Mari Arora MD at [facility] EXPLORATORY LAPAROTOMY INJECTION MEDIAL BRANCH NERVE BLOCK Bilateral L 4/5, 5/1 Bilateral 10/31/2019 Performed by Mina Silva MD at [facility] IN[facility]CTION MEDIAL BRANCH NERVE BLOCK Bilateral L 4/5,5/1 Bilateral 09/19/2019 Performed by Mina Silva MD at [facility] SACROILIAC NERVE Bilateral 05/02/2019 Performed by Mina Silva MD at [facility] WISDOM TOOTH EXTRACTION 09/2011 Current Outpatient Medications Medication Sig Dispense Refill acidophilus-pectin, citrus 100 million cell-10 mg capsule Take 1 capsule by mouth in the morning. cranberry fruit (CRANBERRY) 450 mg tablet Take 1 tablet by mouth in the morning. escitalopram (LEXAPRO) 20 mg tablet Take 1.5 tablets (30 mg total) by mouth in the morning for 30 days. 45 tablet 0 magnesium oxide (MAGOX) 400 mg tablet Take 1 tablet by mouth in the morning and 1 tablet before bedtime 30 tablet 2 metFORMIN XR (GLUCOPHAGE XR) 500 mg 24 hr tablet Take 1 tablet by mouth in the evening. Take with meals Do not crush, chew, or split. mupirocin (BACTROBAN) 2 % ointment Apply 1 Application topically 3 (three) times a day. 15 g 1 omeprazole (PriLOSEC OTC) 20 mg EC tablet Take 1 tablet (20 mg total) by mouth nightly Indications: gastroesophageal reflux disease. PLUS, CALCIUM CARB, 27 mg iron- 1 mg tablet Take 1 tablet by mouth in the morning. Indications: a patient who is producing milk and . No current facility-administered medications for this visit. (All medications reviewed and updated by provider since last office visit or hospitalization) Allergies: Patient has no known allergies. Tobacco History: Social History Tobacco Use Smoking Status Former Current packs/day: 0.50 Average packs/day: 0.5 packs/day for 10.0 years (5.0 ttl pk-yrs) Types: Cigarettes, Vaping/E-cigarettes Smokeless Tobacco Never (If patient a smoker, smoking cessation counseling offered) Social History: Social History Substance and Sexual Activity Alcohol Use Yes Alcohol/week: 1.0 standard drink of alcohol Types: 1 Drinks containing 0.5 oz of alcohol per week Comment: Occasional Problem List: Patient Active Problem List Diagnosis Disorder of sacrum Chronic bilateral low back pain with sciatica Lumbar spondylosis Thoracic spine pain Toxic effect of other specified gases, fumes, or vapors Mixed anxiety and depressive disorder Carpal tunnel syndrome KESHIA (obstructive sleep apnea) Mixed stress and urge urinary incontinence History of fourth degree perineal laceration Perineal pain Review of Systems: Review of Systems Psychiatric/Behavioral: The patient is nervous/anxious. All other systems reviewed and are negative. Physical Exam: There were no vitals taken for this visit. Mental Status Evaluation: Appearance: age appropriate, casually dressed, and overweight Behavior: normal Speech: normal pitch and normal volume Mood: good Affect: normal Thought Process: normal Thought Content: normal Sensorium: person, place, time/date, situation, and day of week Cognition: grossly intact Insight: fair Judgment: fair Assessment and Plan: Diagnoses and all orders for this visit: Anxiety disorder, unspecified type - escitalopram (LEXAPRO) 20 mg tablet; Take 1.5 tablets (30 mg total) by mouth in the morning for 30 days. Recurrent major depressive disorder, in partial remission (CMS-HCC) - escitalopram (LEXAPRO) 20 mg tablet; Take 1.5 tablets (30 mg total) by mouth in the morning for 30 days. Current Outpatient Medications: acidophilus-pectin, citrus 100 million cell-10 mg capsule, Take 1 capsule by mouth in the morning., Disp: , Rfl: cranberry fruit (CRANBERRY) 450 mg tablet, Take 1 tablet by mouth in the morning., Disp: , Rfl: escitalopram (LEXAPRO) 20 mg tablet, Take 1.5 tablets (30 mg total) by mouth in the morning for 30 days., Disp: 45 tablet, Rfl: 0 magnesium oxide (MAGOX) 400 mg tablet, Take 1 tablet by mouth in the morning and 1 tablet before bedtime, Disp: 30 tablet, Rfl: 2 metFORMIN XR (GLUCOPHAGE XR) 500 mg 24 hr tablet, Take 1 tablet by mouth in the evening. Take with meals Do not crush, chew, or split., Disp: , Rfl: mupirocin (BACTROBAN) 2 % ointment, Apply 1 Application topically 3 (three) times a day., Disp: 15 g, Rfl: 1 omeprazole (PriLOSEC OTC) 20 mg EC tablet, Take 1 tablet (20 mg total) by mouth nightly Indications: gastroesophageal reflux disease., Disp: , Rfl: PLUS, CALCIUM CARB, 27 mg iron- 1 mg tablet, Take 1 tablet by mouth in the morning. Indications: a patient who is producing milk and ., Disp: , Rfl: Medical Issues: none Consults: none Labs Ordered: none OARRS reviewed: yes AIMS: no Increased the dose of Lexapro from 20 mg to 30 mg PO daily for anxiety and depression. Pt will take 1 and 1/2 tablets for Lexapro from 20 mg (30 mg). A thorough safety assessment has been conducted and there were no safety concerns expressed by the patient or caregiver. yes Provided empathic listening, validation and support Provided support & education of purpose, risks vs. benefits and side effects of treatment with psychotropic Patient acknowledged and mutually decided to continue with current treatment plan Provided education about stress management, exercise and healthy diet Provided support and education regarding contraception and family planning while taking psychotropic medications Provided support and encouragement to contact office sooner if needed - verbally acknowledged Provided support and encouragement to continue working with other practitioners Advised patient to call 911 or go to nearby ER in case of emergency Advised patient to call 988 Suicide and Crisis Lifeline Pt. Counseled on med compliance. Avoid all drugs and alcohol RTC in 4 weeks or sooner if needed OARRS completed Patient was given the phone numbers of [facility] (Rescue crisis) [phone] and National Suicide Hotline: 988. Medication side effects, risks, benefits, and treatment alternatives discussed; patient states understanding and is in agreement. Patient stated I answered all their questions. Patient voiced understanding of and agreement with the treatment plan. Patient was participatory in decision-making. Reviewed dosage schedule, mechanism of action, serious and common side effects associated with currently prescribed psychotropic medications. The patient is a female in her childbearing years. She verbalized understanding that there are no medications that are completely safe in or while . She states she does not believe that she is now and agrees to contact her prescribing psychiatrist immediately if she is or planning to become . AUGUSTINA INTERIANO MD documented in this encounter Portable Scores 05-10-2024 Progress note Formatting of t his note is different from the original. [address] [facility] [id number] Patient: Arabella Hernandez Date of : 1990 Encounter Date: 05/10/2024 History of Present Illness (Subjective): The patient is a 33 y.o. female, an established patient patient, and is here for medication management. This call is considered an audio/visual technology visit, which is to help assess your current healthcare needs and to determine the appropriate care you may require. This visit may be a billable service through your insurance company. Do you consent to moving forward with this audio/visual technology visit? Yes HPI: Follow up for medication management. Chart and labs were reviewed. Pt reported that she is doing good with current medication. But she gets anxious sometimes. Is not seeing therapist currently as she is doing good. Is breast feeding of her 7 months old daughter. She also took Lexapro during her last . Has 3 children (8 y/o daughter, 21 months old son and and 7 months old daughter). Is breast feeding. was finalized with (father of 8 y/o daughter and 21 months old son). Has share custody with ex . Is living with boyfriend (father of 7 months old daughter). Works as needed at [employer]. As per previous note Chart and labs were reviewed. Last time patient was seen for initial psychiatric evaluation on 03/15/2023. Patient reported that she is here to get refill of Lexapro 20 mg PO daily. She is getting refill from her SENIOR ADMINISTRATIVE SERVICES OFFICER who recommended to see psychiatrist and get refill. Has been taking Lexapro since 04/2023. She also took Lexapro during her last . Stopped taking Zoloft on 04/2023 as she did not like. Pt reported that she is doing good with current medication . As per previous note Chart and labs were reviewed. As per note of JEANINE Dai, PCP on 02/08/23 Patient following up for depression anxiety today as this has gotten much worse with panic attacks but she recently found out she was about 5 weeks . She is not willing to start any medications for anxiety while she is until she talks to her OBGYN. She is also 6 months and she is a . She recently moved to [place] and is wanting a primary care referral. She is going through a divorce and her current is with her new relationship . Has 7 months old boy and is not for last 1 month. Has 6 yr old daughter with ex boyfriend. Going through divorce with 7 months old son's and is since 05/2022. She was for more than 1 yr. Relocated to [place] on 08/2022 from [place] for boyfriend of 10 months. Currently patient is with boyfriend. They want to continue . THA is 10/05/23. Has depression and anxiety since 2016. Since then she has been seen by several therapists and a psychiatrist. Last appointment with psychiatrist was 2 and 1/2 yrs ago. Last appointment with therapist 1 and 1/2 yrs ago. Pt was on Lexapro (few weeks and stopped taking it because 6 yrs ago), Wellbutrin (caused irritability), Ativan (helpful) and Cymbalta (caused foggy vision and took for 6 months). Off medication for last 1 and 1/2 yrs. Has restarted medication since 03/2023 which is prescribed by her SENIOR ADMINISTRATIVE SERVICES OFFICER. Patient was seen by Maine Meneses LPN on 03/09/23 for initial visit. Has monthly appointment with SENIOR ADMINISTRATIVE SERVICES OFFICER. Has thought of it would be better not be here off and on for last few months as she is going through financial crisis. Last thought was few weeks ago. Denied any suicidal ideations. Denied any access of guns or weapons. Pt is currently on Lexapro 20 mg PO daily. Compliant with medication with no side effects. Sleep is good. Depression is 1/10 and anxiety is 4/10 (10 being the worst). No panic attack. No mood swing. Currently Pt denied suicidal/homicidal ideation, plan, intent and also denied auditory/visual hallucination. Pt also denied any symptoms of donna and psychosis. No hx of suicidal attempt in the past. In 2015 she cut herself once as she was upset with ex boyfriend. Mother has hx of depression and anxiety. Maternal grandfather committed suicide in 2019 by shot gun. No hx of convulsion, head injury, concussion and eating d/o Patient denied she has any thought of harming her baby. Does not have any thought of anyone will harm her baby too. Patient's boyfriend ( baby's father) is supportive. Discussed regarding infanticide. Pt was advised to call 911 or go to nearby ER or share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 consultation with the patient (and any accompanying persons) including the risks that the patient's personal health details and medical records will be discussed over real-time, synchronous, interactive video/audio/telecommunication technology, the visit will not be recorded without the express consent of both the provider and the patient, and that there are some limitations compared to [id number] evaluations. The patient consented to the presence of additional virtual and/or in-person participants. We elected to proceed. Problem List Items Addressed This Visit Other Mixed anxiety and depressive disorder Other Visit Diagnoses Blurry vision, bilateral - Primary Relevant Orders [facility] - [place], [place] MR brain without contrast Chronic migraine without aura without status migrainosus, not intractable Relevant Orders MR brain without contrast Dizziness Past Medical, Family, and Social History Update: The following portions of the patient's history were reviewed and updated as appropriate: allergies, current medications, past family history, past medical history, past social history, past surgical history and problem list. Past Medical History: Diagnosis Date Anxiety Carpal tunnel syndrome Depression Enlarged ovary GERD (gastroesophageal reflux disease) Low back pain Obesity Sleep apnea cpap Visual impairment Past Surgical History: Procedure Laterality Date SECTION 09/24/2023 DAVINCI REPAIR HERNIA UMBILICAL WITH MESH N/A 02/26/2024 Performed by Mari Arora MD at [facility] DAVINCI REPAIR HERNIA VENTRAL WITH MESH N/A 02/26/2024 Performed by Mari Arora MD at [facility] EXPLORATORY LAPAROTOMY INJECTION MEDIAL BRANCH NERVE BLOCK Bilateral L 4/5, 5/1 Bilateral 10/31/2019 Performed by Mina Silva MD at [facility] INJECTION MEDIAL BRANCH NERVE BLOCK Bilateral L 4/5,5/1 Bilateral 09/19/2019 Performed by Mina Silva MD at [facility] INJECTION SACROILIAC NERVE Bilateral 05/02/2019 Performed by Mina Silva MD at [facility] WISDOM TOOTH EXTRACTION 09/2011 Current Outpatient Medications Medication Sig Dispense Refill acidophilus-pectin, citrus 100 million cell-10 mg capsule Take 1 capsule by mouth in the morning. cranberry fruit (CRANBERRY) 450 mg tablet Take 1 tablet by mouth in the morning. escitalopram (LEXAPRO) 20 mg tablet Take 1 tablet (20 mg total) by mouth nightly Indications: anxiousness associated with depression. magnesium oxide (MAGOX) 400 mg tablet Take 1 tablet by mouth in the morning and 1 tablet before bedtime 30 tablet 2 mupirocin (BACTROBAN) 2 % ointment Apply 1 Application topically 3 (three) times a day. 15 g 1 omeprazole (PriLOSEC OTC) 20 mg EC tablet Take 1 tablet (20 mg total) by mouth nightly Indications: gastroesophageal reflux disease. PLUS, CALCIUM CARB, 27 mg iron- 1 mg tablet Take 1 tablet by mouth in the morning. Indications: a patient who is producing milk and . No current facility-administered medications for this visit. (All medications reviewed and updated by provider since last office visit or hospitalization) Allergies: Patient has no known allergies. Tobacco History: Social History Tobacco Use Smoking Status Former Current packs/day: 0.50 Average packs/day: 0.5 packs/day for 10.0 years (5.0 ttl pk-yrs) Types: Cigarettes, Vaping/E-cigarettes Smokeless Tobacco Never (If patient a smoker, smoking cessation counseling offered) Social History: Social History Substance and Sexual Activity Alcohol Use Yes Alcohol/week: 1.0 standard drink of alcohol Types: 1 Drinks containing 0.5 oz of alcohol per week Comment: Occasional Review of Systems: Review of Systems Constitutional: Negative for activity change, appetite change and unexpected weight change. HENT: Negative. Eyes: Positive for visual disturbance. Negative for pain. Respiratory: Negative. Cardiovascular: Negative. Gastrointestinal: Negative. Musculoskeletal: Positive for neck pain and neck stiffness. Neurological: Positive for dizziness and headaches. Psychiatric/Behavioral: Negative. Physical Exam: There were no vitals taken for this visit. Physical Exam Constitutional: Comments: Patient appears without distress on video call today, she is feeding her infant daughter Assessment and Plan: Diagnoses and all orders for this visit: Blurry vision, bilateral - [facility] - Optometry - [place], [place]; Future - MR brain without contrast; Future Chronic migraine without aura without status migrainosus, not intractable - MR brain without contrast; Future Mixed anxiety and depressive disorder Dizziness Follow-up: Multiple neurologic complaints that are worsening for last 0.5-1 year. Unable to see pt in office as she lives in [place] now and cannot make the drive often. Start with ophthalmology evaluation to r/o optic neuritis or other eye changes that could be associated with MS. Then proceed with MRI brain and possible neurology referral depending on findings. If insurance denies MRI, may need to be evaluated by neurology first. As pt is still , treatment options for her migraines and neck pain are limited at this point. We can consider CGRP-I and muscle relaxant when she is finished with . For now she can continue Mg supplement and tylenol OTC as needed for pain as well as heat and increased hydration. F/u after above testing. [id number] 16 min JEANINE DAI APRN-CNP 03/24/24 1619 documented in this encounter [facility] 03-13-2024 History of Present illness Narrative Chief Complaint: History of Present Illness: Arabella Hernandez is a 33 y.o. female who presents after recent minimally invasive repair ventral hernia. She is doing well. Some firmness in the lower abdomen. She is eating well. Normal bowel function. She is trying to stick to the lifting limits but has several small children Review of Systems Constitutional: Negative. Respiratory: Negative. Cardiovascular: Negative. Past Medical History: Diagnosis Date Anxiety Carpal tunnel syndrome Depression Enlarged ovary GERD (gastroesophageal reflux disease) Low back pain Obesity Sleep apnea cpap Visual impairment Past Surgical History: Procedure Laterality Date SECTION 09/24/2023 DAVINCI REPAIR HERNIA UMBILICAL WITH MESH N/A 02/26/2024 Performed by Mari Arora MD at [facility] DAVINCI REPAIR HERNIA VENTRAL WITH MESH N/A 02/26/2024 Performed by Mari Arora MD at [facility] SURGERY EXPLORATORY LAPAROTOMY INJECTION MEDIAL BRANCH NERVE BLOCK Bilateral L 4/5, 5/1 Bilateral 10/31/2019 Performed by Mina Silva MD at [facility] INJECTION MEDIAL BRANCH NERVE BLOCK Bilateral L 4/5,5/1 Bilateral 09/19/2019 Performed by Mina Silva MD at [facility] IN[facility] SACROILIAC NERVE Bilateral 05/02/2019 Performed by Mina Silva MD at [facility] WISDOM TOOTH EXTRACTION 09/2011 No Known Allergies Current Outpatient Medications: acidophilus-pectin, citrus 100 million cell-10 mg capsule, Take 1 capsule by mouth in the morning., Disp: , Rfl: cranberry fruit (CRANBERRY) 450 mg tablet, Take 1 tablet by mouth in the morning., Disp: , Rfl: escitalopram (LEXAPRO) 20 mg tablet, Take 1 tablet (20 mg total) by mouth nightly Indications: anxiousness associated with depression., Disp: , Rfl: magnesium oxide (MAGOX) 400 mg tablet, Take 1 tablet by mouth in the morning and 1 tablet before bedtime, Disp: 30 tablet, Rfl: 2 mupirocin (BACTROBAN) 2 % ointment, Apply 1 Application topically 3 (three) times a day., Disp: 15 g, Rfl: 1 omeprazole (PriLOSEC OTC) 20 mg EC tablet, Take 1 tablet (20 mg total) by mouth nightly Indications: gastroesophageal reflux disease., Disp: , Rfl: PLUS, CALCIUM CARB, 27 mg iron- 1 mg tablet, Take 1 tablet by mouth in the morning. Indications: a patient who is producing milk and ., Disp: , Rfl: Social History Socioeconomic History Marital status: Spouse name: Not on file Number of children: Not on file Years of education: Not on file Highest education level: Not on file Occupational History Not on file Tobacco Use Smoking status: Former Current packs/day: 0.50 Average packs/day: 0.5 packs/day for 10.0 years (5.0 ttl pk-yrs) Types: Cigarettes, Vaping/E-cigarettes Smokeless tobacco: Never Vaping Use Vaping status: Never Used Substance and Sexual Activity Alcohol use: Yes Alcohol/week: 1.0 standard drink of alcohol Types: 1 Drinks containing 0.5 oz of alcohol per week Comment: Occasional Drug use: No Sexual activity: Yes Partners: Male control/protection: OCP Other Topics Concern Not on file Social History Narrative Not on file Social Drivers of Health Financial Resource Strain: Low Risk (02/06/2023) Overall Financial Resource Strain (CARDIA) Difficulty of Paying Living Expenses: Not hard at all Food Insecurity: No Food Insecurity (03/06/2024) Hunger Screening Food Insecurity - Worry: Never [...] Hypertension Mother Alcohol abuse Mother COPD Mother Depression Mother Mental illness Mother Breast cancer Paternal Aunt Lupus Paternal Aunt Breast cancer Maternal Grandmother Diabetes Maternal Grandfather Depression Maternal Grandfather Mental illness Maternal Grandfather Heart disease Paternal Grandfather Physical Exam Constitutional: Appearance: Normal appearance. HENT: Head: Normocephalic and atraumatic. Pulmonary: Effort: Pulmonary effort is normal. No respiratory distress. Abdominal: General: There is no distension. Palpations: Abdomen is soft. Comments: Robotic surgical incisions well healed. No erythema or ecchymosis Skin: General: Skin is warm and dry. Neurological: Mental Status: She is alert. Labs: Lab Results Component Value Date WBC 7.6 12/13/2023 HGB 11.9 12/13/2023 HCT 37.3 12/13/2023 MCV 77 (L) 12/13/2023 PLT 275 12/13/2023 Lab Results Component Value Date GLU 82 12/13/2023 CALCIUM 9.2 12/13/2023 K 4.4 12/13/2023 CO2 24 12/13/2023 CL 107 12/13/2023 BUN 12 12/13/2023 CREATININE 0.72 12/13/2023 No results found for: AMYLASE Lab Results Component Value Date LIPASE 39 09/14/2016 Lab Results Component Value Date ALT 47 (H) 12/13/2023 AST 40 12/13/2023 ALKPHOS 129 12/13/2023 No results found for: INR , PROTIME Assessment: Arabella Hernandez is a 33 y.o.female with recent minimally invasive repair ventral hernia, doing well Plan: Activity restrictions discussed. Return here as needed Mari Arora MD FACS [facility] General Surgery [facility] History of Present illness Narrative Associated Order(s): $ Carpal Tunnel Injection: R carpal tunnel Post-Procedure Diagnose(s): Bilateral carpal tunnel syndrome [facility] Chief Complaint: Chief Complaint Patient presents with Right Hand - Pain, Numbness Pt states she was diagnosed w/ CTS by EMG approx 10 yrs. C/o achy pain, stiffness, numbness. Pt states during her her sx worsened. Pt states she has a lot of pain in the wrist and sometimes it is sharp, shooting pain. Pt wears braces at night on occasion. RT>LT Left Hand - Pain, Numbness Pt states she was diagnosed w/ CTS by EMG approx 10 yrs. C/o achy pain, stiffness, numbness. Pt states during her her sx worsened. Pt states she has a lot of pain in the wrist and sometimes it is sharp, shooting pain. Pt wears braces at night on occasion. RT>LT HPI Arabella Hernandez is a 33 y.o. right-hand dominant female who presents today for evaluation of her bilateral hands. She reports numbness and tingling mostly in her thumb index and long finger. The symptoms are worse on her right than her left. Her symptoms have gotten worse with . It took a couple months after her daughter was born for symptoms to calm down a little bit. She still wears nighttime bracing but finds it uncomfortable at times. She has difficulty using a keyboard, driving or fine motor movements because of pain and numbness in her hands. She states she did have an EMG done a proximally 10 years ago which did show mild carpal tunnel syndrome in both hands. She denies any injuries to either hand. Examination: bilateral upper extremity exam: Appearance: normal ROM: All fingers demonstrate full active and passive extension All fingers demonstrate full active and passive composite flexion Strength: Normal Tender to palpation: None Triggering: none at A1 pauline Neurovascular: positive Tinel's at the carpal tunnel, positive Phalen's test positive Durkan's test Sensation: Present sensation to light touch in all fingertips. Motor function: normal. No thenar atrophy. Xrays done in office today: X-ray hand right minimum 3 views Three views right hand taken today. PA, oblique, lateral. No comparison films. No acute osseous abnormalities. No evidence of advanced osteoarthritis. Impression: Atraumatic right hand films. X-ray hand left minimum 3 views Three views left hand taken today. PA, oblique, lateral. No comparison films. No acute osseous abnormalities. No evidence of advanced osteoarthritis. Impression: Atraumatic left hand films. Assessment 1. Bilateral carpal tunnel syndrome - X-ray hand right minimum 3 views; Future - X-ray hand left minimum 3 views; Future Plan: I discussed treatment options with the patient which included Corticosteroid injection, Surgical treatment which consists of carpal tunnel release, and Brace for immobilization. After discussion of these options, including risks and benefits of each we are going to proceed with Corticosteroid injection and Surgical treatment which consists of Right carpal tunnel release which he was going to be done under a MAC. We will begin the scheduling process for this today. . All questions were answered. Patient tolerated the right carpal tunnel injection well today. She will follow up with me postoperatively. $ Carpal Tunnel Injection: R carpal tunnel on 03/06/2024 9:34 AM Indications: pain Details: 25 G needle, volar approach Medications: 6 mg betamethasone acet & sod phos 6 mg/mL Outcome: tolerated well, no immediate complications The patient was instructed to use ice, NSAIDs, or Tylenol for pain as needed. Patient was also educated on possibility for blood glucose elevation following the injection. The patient will call with any signs or concerns. Procedure, treatment alternatives, risks and benefits explained, specific risks discussed. Consent was given by the patient. Patient was prepped and draped in the usual sterile fashion. I, Mara Arnold MD, personally performed the face to face evaluation on this patient. I discussed with the patient and confirmed the accuracy and completeness of the aforementioned history, and I personally performed the clinical examination of the patient. I have established and discussed the course of treatment with the patient and Physician Safety Advisor. My medical decision making and treatment plan are as follows. Arabella Hernandez and I did discuss clinical history and physical exam consistent with right greater than left carpal tunnel syndrome. We did discuss pathology associated with this. We did discuss the spectrum of treatment options to include bracing, carpal tunnel corticosteroid injection, and definitive treatment with carpal tunnel release. After consideration of options, patient would like to proceed with definitive treatment in the form of right carpal tunnel release under sedation anesthesia. We did discuss details of surgery. We did discuss expected postoperative course. We did discuss risks of surgery to include infection, bleeding, damage to Nerve/Vessel/Ligament/Tendon, delayed versus incomplete/incorrect healing, incomplete relief of symptoms, continued pain, numbness, weakness, stiffness, scarring, recurrence of symptoms, and need for further surgery. Patient does wish to proceed with surgery. We will begin scheduling process. Patient will follow-up in our clinic postoperatively. In the short term, she would like to proceed with carpal tunnel corticosteroid injection for symptomatic relief. Today in clinic, under aseptic technique, 1 cc lidocaine 1% mixed with 1 cc Celestone 6 milligrams/mL was injected into the RIGHT carpal tunnel. Patient tolerated this well. She will follow-up at the time of surgery. documented in this encounter [facility] 03-06-2024 Instructions Mara Arnold MD - 03/06/2024 8:40 AM EST Images from the original note were not included. documented in this encounter [facility] 02-22-2024 History of Present illness Narrative Images from the original note were not included. [facility] [address] [id number] Patient ID: Arabella Hernandez is a 33 y.o. female. PCP: JEANINE DAI Subjective: Chief Complaint: Chief Complaint Patient presents with New Patient Ingrown Toenail HPI: This 33 y.o. year old female patient presents to the office today complaining of ingrown nails to both great toes and the 2nd and 3rd digit on the right foot. She does have some mild pain to the medial border of the left 2nd digit at times as well. Digits trim them out herself about once a month. She does have some greenish discoloration present from the 2nd and 3rd digit occasionally. She did start using Bactroban for that. Tobacco Use: Medium Risk (02/14/2024) Patient History Smoking Tobacco Use: Former Smokeless Tobacco Use: Never Passive Exposure: Not on file Lab Review: No results found for: HGBA1C Past Medical History: Past Medical History: Diagnosis Date Anxiety Carpal tunnel syndrome Depression Enlarged ovary GERD (gastroesophageal reflux disease) Low back pain Obesity Sleep apnea cpap Visual impairment Past Surgical History: Past Surgical History: Procedure Laterality Date SECTION 09/24/2023 EXPLORATORY LAPAROTOMY INJECTION MEDIAL BRANCH NERVE BLOCK Bilateral L 4/5, 5/1 Bilateral 10/31/2019 Performed by Mina Silva MD at [facility] INJECTION MEDIAL BRANCH NERVE BLOCK Bilateral L 4/5,5/1 Bilateral 09/19/2019 Performed by Mina Silva MD at [facility] INJECTION SACROILIAC NERVE Bilateral 05/02/2019 Performed by Mina Silva MD at [facility] WISDOM TOOTH EXTRACTION 09/2011 Family History: Family History Problem Relation Age of Onset Hypertension Mother Alcohol abuse Mother COPD Mother Depression Mother Mental illness Mother Breast cancer Paternal Aunt Lupus Paternal Aunt Breast cancer Maternal Grandmother Diabetes Maternal Grandfather Depression Maternal Grandfather Mental illness Maternal Grandfather Heart disease Paternal Grandfather Social History: Social History Socioeconomic History Marital status: Spouse name: Not on file Number of children: Not on file Years of education: Not on file Highest education level: Not on file Occupational History Not on file Tobacco Use Smoking status: Former Current packs/day: 0.50 Average packs/day: 0.5 packs/day for 10.0 years (5.0 ttl pk-yrs) Types: Cigarettes, Vaping/E-cigarettes Smokeless tobacco: Never Vaping Use Vaping status: Never Used Substance and Sexual Activity Alcohol use: Yes Alcohol/week: 1.0 standard drink of alcohol Types: 1 Drinks containing 0.5 oz of alcohol per week Comment: Occasional Drug use: No Sexual activity: Yes Partners: Male control/protection: OCP Other Topics Concern Not on file Social History Narrative Not on file Social Drivers of Health Financial Resource Strain: Low Risk (02/06/2023) Overall Financial Resource Strain (CARDIA) Difficulty of Paying Living Expenses: Not hard at all Food Insecurity: No Food Insecurity (02/14/2024) Hunger Screening Food Insecurity - Worry: Never True Food Insecurity - Inability: Never True Transportation Needs: No Transportation Needs (02/06/2023) PRAPARE - Transportation Lack of Transportation (Medical): No Lack of Transportation (Non-Medical): No Physical Activity: Not on file Stress: Not on file Social Connections: Not on file Interpersonal Safety: Not on file Housing Instability: Low Risk (02/06/2023) Housing Instability Housing Instability: No Allergies: No Known Allergies Current Medications: Current Outpatient Medications Medication Sig Dispense Refill acidophilus-pectin, citrus 100 million cell-10 mg capsule Take 1 capsule by mouth in the morning. cranberry fruit (CRANBERRY) 450 mg tablet Take 1 tablet by mouth in the morning. escitalopram (LEXAPRO) 20 mg tablet Take 1 tablet (20 mg total) by mouth nightly Indications: anxiousness associated with depression. magnesium oxide (MAGOX) 400 mg tablet Take 1 tablet by mouth in the morning and 1 tablet before bedtime 30 tablet 2 mupirocin (BACTROBAN) 2 % ointment Apply 1 Application topically 3 (three) times a day. 15 g 1 omeprazole (PriLOSEC OTC) 20 mg EC tablet Take 1 tablet (20 mg total) by mouth nightly Indications: gastroesophageal reflux disease. PLUS, CALCIUM CARB, 27 mg iron- 1 mg tablet Take 1 tablet by mouth in the morning. Indications: a patient who is producing milk and . No current facility-administered medications for this visit. Review of Systems: Face mask in place for CoVid compliance. Review of Systems Endocrine: Patient is not a Type 2 Diabetic Constitutional: Negative for chills and fever. Respiratory: Negative for shortness of breath and wheezing. Cardiovascular: Negative for leg swelling. Gastrointestinal: Negative for nausea and vomiting. Musculoskeletal: Positive for incurvated nails Neurological: Negative for dizziness and numbness. Objective: Vitals BP 105/76 Pulse 86 Temp (!) 35.7 C (96.3 F) (Temporal) Vitals: 02/22/24 1050 BP: 105/76 Pulse: 86 Temp: (!) 35.7 C (96.3 F) Lab Review: @[id number]@ No results found for: HGBA1C Physical Exam: Physical Exam Vascular: Dorsalis pedis pulses are present +2/4 bilateral and posterior tibial pulses present +2/4 bilateral. Capillary refill time is brisk. Skin temperature is warm to Neutral from proximal to distal foot bilateral. There is no edema present, bilateral. Derm: Skin has normal hydration. Wounds Absent, bilateral. There is no callus present bilateral. Incurvation noted to medial border right 2nd digit. Incurvation noted to medial and lateral borders of bilateral hallux and left 2nd digit. Incurvation noted to medial border of 4th digit right. Neuro: Epicritic and protective sensation Normal . Light touch intact. Patient Denies numbness and tingling. Ortho Exam: 5/5 strength all lower extremity muscle groups. Pain with palpation of 1st and 2nd digit on the left and 1st 2nd and 4th on the right at the nail borders. Assessment and Plan: Arabella was seen today for new patient and ingrown toenail. Diagnoses and all orders for this visit: Onychocryptosis Pain in right foot Left foot pain The patient was fully examined and we discussed their condition, treatment options available for care and expected outcomes Radiographs were reviewed by myself and results were discussed with patient Recommended patient can try drysol for sweaty feet. Recommended patient to try a diluted vinegar soak on nails to help with the green drainage. Performed slant back procedure on bilateral borders of bilateral hallux, lateral border 2nd digit left, medial border 2nd digit right, and medial border of 4th digit right. We will schedule patient for a matrixectomy procedure on bilateral borders of bilateral hallux, lateral border of left 2nd digit medial border of right 2nd digit, and medial border of right 4th digit. Answered all questions to patients satisfaction Call if any other questions Patient should follow up for procedures This note was created with the assistance of a speech-recognition program. Although the intention is to generate a document that actually reflects the content of the visit, no guarantees can be provided that every mistake has been identified and corrected by editing. Lashonda Dia DPM Scribe Statement: Scribed for and in the presence of Lashonda Dia DPM by Pastor Benoit 02/22/24 1118 documented in this encounter [facility] 02-14-2024 Instructions Formatting of th is note might be different from the original. Your surgery/procedure is scheduled at [facility] on 02/26/2024 at 0800 Arrival Time 0600 [facility] Address: [address] [place] [address], [id number] [address] in the Emergency Center Parking lot. Report to the front window cashier in the Emergency/Surgery Registration lobby of the hospital. Notify your SURGEON if you develop any illness such as a cold, cough, fever, sore throat, vomiting or are hospitalized between now and your surgery. Please call Pre-Admission Clinic at [phone] if you have any questions prior to surgery. For questions the morning of surgery, call the Pre-op Department at [phone]. Medication Instructions (Do not stop your medications without consulting the prescribing physician). Take the following medications the morning of surgery with a sip of water: Na Diabetic or Weight loss medications: HOLD Na LAST DOSE Na Take inhalers as prescribed the morning of surgery. Due to the risk associated with these medications. If these medications are not held per instruction below, your surgery is at an increased risk for cancellation SGLT2 Medications- Hold 3 days prior to surgery: Jardiance, Empagliflozin, Farxiga, Dapagliflozin, Invokana, Canagliflozin, Trijardy, Synjardy GLP-1 Medications (Injection or Pill)- If taken daily hold day of surgery. If taken weekly, hold 1 week prior to surgery: Adlyxin, Byetta, Bydureon, Ozempic, Rybelsus,Trulicity, Victoza, Wegovy, Lixisenatide, Exenatide, Semaglutide, Dulaglutide, Liraglutide GIP/GLP-1(Injection or Pill)- If taken daily hold day of surgery. If taken weekly, hold 1 week prior to surgery: Mounjaro . Blood thinners: Please contact your prescribing physician regarding a stop/hold date for these medications. Medications such as Coumadin, Heparin, Aspirin, Plavix, Eliquis, Pradaxa Diabetics: If you take insulin, contact your prescribing doctor for instructions on how to manage this the night before and the morning of surgery. Non-steriodal Anti-Inflammatory Drugs (NSAIDS)- Hold 3 days prior to surgery unless otherwise directed by your surgeon. Vitamins/Herbal Products: You may continue to take your prescribed vitamins such as potassium, iron, vitamin B, vitamin C, or multivitamin unless specifically instructed by your surgeon to hold. STOP taking all herbal products/teas one week prior to your surgery. Marijuana: Stop marijuana 72 hours prior to surgery, stop CBD oil 48 hours prior to surgery. If you have been given bowel prep instructions by your surgeon, please call the surgeon's office with any questions about these instructions. What do I do the day of Surgery? Age 2 through adult - Stop all solids by midnight, You may have clear liquids up to 2 hours before surgery, unless otherwise instructed by your surgeon Clear liquids are: water, sports drinks such as Gatorade or G2, or apple juice. You may NOT have: tube feedings, dairy products, alcoholic beverages, orange juice, or any liquids with solids or pulp in it If applicable, shower again with CHG soap the morning of your surgery. If you received a green plastic bracelet, bring it with you the day of surgery and your nurse will put it on you. What do I need to do to prepare for surgery? If you will be going home the same day as your surgery, arrange for an adult over [address] Riding in a bus or taxi by yourself is not permitted. You should not smoke or drink alcohol 24 hours before your surgery. Smoking increases the risk of breathing problems after surgery. Alcohol thins the blood and may cause bleeding problems during surgery If you have been assigned IZABELLA Education by your surgeon's office, please complete this education prior to your surgery. For questions regarding IZABELLA education, reach out to your surgeons office. If you have been given a prescription for occupational, physical or speech therapy, please set up these appointments before your procedure. If you would like to schedule therapy at a [facility] facility, please call [phone] ([phone]). Do not use lotions, creams, powders, perfume, make up, cologne or after-shaves day of surgery. Remove ALL jewelry including wedding rings, body piercings, hair extensions that contain metal, nail portuguese, make-up, and contact lens. You may brush your teeth the morning of surgery, but do not swallow the water. Wear your dentures and partial plates to the hospital (no adhesive). Shower the night the before. If applicable, use the CHG (chlorhexidine gluconate) soap or wipes. Please be advised, [facility] has transitioned to a cashless payment system. What should I bring to the hospital? If you received a green plastic bracelet, bring it with you the day of surgery and your nurse will put it on you. Eyeglass or contact lens case If you will be spending the night, please bring personal care items and leave them in the car until you are taken to your room after surgery. Leave ALL valuables at home. If any of these instructions conflict with those you recieved from the surgeon, please seek clarification from your surgeon's office. DEEP BREATHING EXERCISES This exercise helps promote good air exchange and helps to prevent pneumonia after surgery. Breathe in slowly and deeply through the nose. Hold your breath for a few seconds and then exhale slowly through the mouth. Repeat this three times and then cough. Coughing helps to clear your lungs. If you have had a surgery with an incision into your abdomen or chest, press gently against your incision with a pillow or a folded blanket when you cough. Please be aware - it may not be vickers to cough following some types of surgeries involving the eyes, ears, sinuses and throat. Always follow your doctor's instructions. LEG EXERCISES These exercises help promote good circulation and help to prevent blood clots after surgery. Point your toes to the ceiling and then point them to the wall. Do this slowly about 15-20 times. You may also move your feet in circles. Do the exercise that is most comfortable for you. If you have had surgery involving your shoulder or arm, we recommend you move your fingers. PRACTICING We ask that you begin practicing these exercises before your surgery. After surgery try to do both exercises at least every 2 hours during the day and early evening. SURGICAL SITE INFECTION AND PREVENTION What is a Surgical Site Infection? Infection can happen to the area of the body where surgery is done. This is called a surgical site infection (SSI). A SSI does not happen very often. Can SSIs be treated? Antibiotics are used to treat SSI. Some patients may need another surgery to treat the infection. The doctor will discuss treatment options with you. What are some of the things that hospitals are doing to prevent SSIs? Soap and water or alcohol hand rub are used before and after caring for each patient.Special soap is used to clean surgery workers hands and arms just before the surgery. Masks, gowns, gloves and hair covers are worn during the surgery to keep the area clean. Hair in the surgery area may be removed with clippers (not razors). A special soap that kills germs is used to clean the skin at the surgery site. Antibiotics may be given before the surgery starts. What can you do to prevent SSIs? Before surgery: You may be asked to shower or bathe with a special soap that kills germs the night before and the day of surgery. Use the soap as you were told. If you smoke, stop or cut down. Ask your doctor about ways to quit. Do not shave near where you will have surgery. Shaving can irritate the skin and make it easier to get and infection. After surgery: Be sure that the doctors and nurses clean their hands before and after touching you. Be sure your family and friends clean their hands before and after visiting you. Do not be afraid to remind them. * Care for your wound at home as told by your doctor or nurse * Call your doctor right away if you have fever, redness, increased pain, or drainage at the surgery site. Further questions? Contact the doctor, nurse or the Infection Prevention and Control department if you have any questions. PATIENT RIGHTS AND RESPONSIBILITIES As a patient at [facility], you have the right to: Receive medical care and be informed of who is taking care of you Be treated with dignity and respect Have a family member/district sales representative of choice and your physician notified of your admission Receive information and actively participate in decisions about your care and treatment Refuse care, treatment and services Decide who may provide your support and speak for you Access holiness and spiritual services Participate in ethical issues and questions about your care Receive private and confidential care Have appropriate assessment and management of your pain Know guest visitation restrictions or limitations Have an advance directive Access protective services Consent or refuse to participate in research studies or production or recordings, films or other images Have resolution of your complaints Receive information of hospital charges and payment methods Patient/patient district sales representative responsibilities are to: Provide information about health status to facilitate care, treatment and services Follow the treatment, plan, keep appointments and speak up when you do not understand the plan Respect the rights of other patients and healthcare personnel Follow organizational rules and regulations that support quality care and a safe environment Fulfill financial obligations as promptly as possible PATIENT RIGHTS AND RESPONSIBILITIES As a patient at [facility], you have the right to: Receive medical care and be informed of who is taking care of you Be treated with dignity and respect Have a family member/district sales representative of choice and your physician notified of your admission Receive information and actively participate in decisions about your care and treatment Refuse care, treatment and services Decide who may provide your support and speak for you Access holiness and spiritual services Participate in ethical issues and questions about your care Receive private and confidential care Have appropriate assessment and management of your pain Know guest visitation restrictions or limitations Have an advance directive Access protective services Consent or refuse to participate in research studies or production or recordings, films or other images Have resolution of your complaints Receive information of hospital charges and payment methods Patient/patient district sales representative responsibilities are to: Provide information about health status to facilitate care, treatment and services Follow the treatment, plan, keep appointments and speak up when you do not understand the plan Respect the rights of other patients and healthcare personnel Follow organizational rules and regulations that support quality care and a safe environment Fulfill financial obligations as promptly as possible Surgical Site Infection Prevention What is a Surgical Site Infection? Infection can happen to the area of the body where surgery is done. This is called a surgical site infection (SSI). A SSI does not happen very often. Can SSIs be treated? Antibiotics are used to treat SSI. Some patients may need another surgery to treat the infection. The doctor will discuss treatment options with you. What are some of the things that hospitals are doing to prevent SSIs? Soap and water or alcohol hand rub are used before and after caring for each patient. Special soap is used to clean surgery workers hands and arms just before the surgery. Masks, gowns, gloves and hair covers are worn during the surgery to keep the area clean. Hair in the surgery area may be removed with clippers (not razors). A special soap that kills germs is used to clean the skin at the surgery site. Antibiotics may be given before the surgery starts. What can you do to prevent SSIs? Before surgery: You may be asked to shower or bathe with a special soap that kills germs the night before and the day of surgery. Use the soap as you were told. If you smoke, stop or cut down. Ask your doctor about ways to quit. Do not shave near where you will have surgery. Shaving can irritate the skin and make it easier to get and infection. After surgery: Be sure that the doctors and nurses clean their hands before and after touching you. Be sure your family and friends clean their hands before and after visiting you. Do not be afraid to remind them. * Care for your wound at home as told by your doctor or nurse * Call your doctor right away if you have fever, redness, increased pain, or drainage at the surgery site. Further questions? Contact the doctor, nurse or the Infection Prevention and Control department if you have any questions. [facility] 02-14-2024 Miscellaneous Notes Your surgery/procedure is scheduled at [facility] on 02/26/2024 at 0800 Arrival Time 0600 [facility] Address: [address] [place] [address], [facility], [address] [address] in the Emergency Center Parking lot. Report to the front window cashier in the Emergency/Surgery Registration lobby of the hospital. Notify your SURGEON if you develop any illness such as a cold, cough, fever, sore throat, vomiting or are hospitalized between now and your surgery. Please call Pre-Admission Clinic at [phone] if you have any questions prior to surgery. For questions the morning of surgery, call the Pre-op Department at [phone]. Medication Instructions (Do not stop your medications without consulting the prescribing physician). Take the following medications the morning of surgery with a sip of water: Na Diabetic or Weight loss medications: HOLD Na LAST DOSE Na Take inhalers as prescribed the morning of surgery. Due to the risk associated with these medications. If these medications are not held per instruction below, your surgery is at an increased risk for cancellation SGLT2 Medications- Hold 3 days prior to surgery: Jardiance, Empagliflozin, Farxiga, Dapagliflozin, Invokana, Canagliflozin, Trijardy, Synjardy GLP-1 Medications (Injection or Pill)- If taken daily hold day of surgery. If taken weekly, hold 1 week prior to surgery: Adlyxin, Byetta, Bydureon, Ozempic, Rybelsus,Trulicity, Victoza, Wegovy, Lixisenatide, Exenatide, Semaglutide, Dulaglutide, Liraglutide GIP/GLP-1(Injection or Pill)- If taken daily hold day of surgery. If taken weekly, hold 1 week prior to surgery: Mounjaro . Blood thinners: Please contact your prescribing physician regarding a stop/hold date for these medications. Medications such as Coumadin, Heparin, Aspirin, Plavix, Eliquis, Pradaxa Diabetics: If you take insulin, contact your prescribing doctor for instructions on how to manage this the night before and the morning of surgery. Non-steriodal Anti-Inflammatory Drugs (NSAIDS)- Hold 3 days prior to surgery unless otherwise directed by your surgeon. Vitamins/Herbal Products: You may continue to take your prescribed vitamins such as potassium, iron, vitamin B, vitamin C, or multivitamin unless specifically instructed by your surgeon to hold. STOP taking all herbal products/teas one week prior to your surgery. Marijuana: Stop marijuana 72 hours prior to surgery, stop CBD oil 48 hours prior to surgery. If you have been given bowel prep instructions by your surgeon, please call the surgeon's office with any questions about these instructions. What do I do the day of Surgery? Age 2 through adult - Stop all solids by midnight, You may have clear liquids up to 2 hours before surgery, unless otherwise instructed by your surgeon Clear liquids are: water, sports drinks such as Gatorade or G2, or apple juice. You may NOT have: tube feedings, dairy products, alcoholic beverages, orange juice, or any liquids with solids or pulp in it If applicable, shower again with CHG soap the morning of your surgery. If you received a green plastic bracelet, bring it with you the day of surgery and your nurse will put it on you. What do I need to do to prepare for surgery? If you will be going home the same day as your surgery, arrange for an adult over [address] Riding in a bus or taxi by yourself is not permitted. You should not smoke or drink alcohol 24 hours before your surgery. Smoking increases the risk of breathing problems after surgery. Alcohol thins the blood and may cause bleeding problems during surgery If you have been assigned IZABELLA Education by your surgeon's office, please complete this education prior to your surgery. For questions regarding IZABELLA education, reach out to your surgeons office. If you have been given a prescription for occupational, physical or speech therapy, please set up these appointments before your procedure. If you would like to schedule therapy at a [facility] facility, please call [phone] ([phone]). Do not use lotions, creams, powders, perfume, make up, cologne or after-shaves day of surgery. Remove ALL jewelry including wedding rings, body piercings, hair extensions that contain metal, nail portuguese, make-up, and contact lens. You may brush your teeth the morning of surgery, but do not swallow the water. Wear your dentures and partial plates to the hospital (no adhesive). Shower the night the before. If applicable, use the CHG (chlorhexidine gluconate) soap or wipes. Please be advised, [facility] has transitioned to a cashless payment system. What should I bring to the hospital? If you received a green plastic bracelet, bring it with you the day of surgery and your nurse will put it on you. Eyeglass or contact lens case If you will be spending the night, please bring personal care items and leave them in the car until you are taken to your room after surgery. Leave ALL valuables at home. If any of these instructions conflict with those you recieved from the surgeon, please seek clarification from your surgeon's office. DEEP BREATHING EXERCISES This exercise helps promote good air exchange and helps to prevent pneumonia after surgery. Breathe in slowly and deeply through the nose. Hold your breath for a few seconds and then exhale slowly through the mouth. Repeat this three times and then cough. Coughing helps to clear your lungs. If you have had a surgery with an incision into your abdomen or chest, press gently against your incision with a pillow or a folded blanket when you cough. Please be aware - it may not be vickers to cough following some types of surgeries involving the eyes, ears, sinuses and throat. Always follow your doctor's instructions. LEG EXERCISES These exercises help promote good circulation and help to prevent blood clots after surgery. Point your toes to the ceiling and then point them to the wall. Do this slowly about 15-20 times. You may also move your feet in circles. Do the exercise that is most comfortable for you. If you have had surgery involving your shoulder or arm, we recommend you move your fingers. PRACTICING We ask that you begin practicing these exercises before your surgery. After surgery try to do both exercises at least every 2 hours during the day and early evening. SURGICAL SITE INFECTION AND PREVENTION What is a Surgical Site Infection? Infection can happen to the area of the body where surgery is done. This is called a surgical site infection (SSI). A SSI does not happen very often. Can SSIs be treated? Antibiotics are used to treat SSI. Some patients may need another surgery to treat the infection. The doctor will discuss treatment options with you. What are some of the things that hospitals are doing to prevent SSIs? Soap and water or alcohol hand rub are used before and after caring for each patient.Special soap is used to clean surgery workers hands and arms just before the surgery. Masks, gowns, gloves and hair covers are worn during the surgery to keep the area clean. Hair in the surgery area may be removed with clippers (not razors). A special soap that kills germs is used to clean the skin at the surgery site. Antibiotics may be given before the surgery starts. What can you do to prevent SSIs? Before surgery: You may be asked to shower or bathe with a special soap that kills germs the night before and the day of surgery. Use the soap as you were told. If you smoke, stop or cut down. Ask your doctor about ways to quit. Do not shave near where you will have surgery. Shaving can irritate the skin and make it easier to get and infection. After surgery: Be sure that the doctors and nurses clean their hands before and after touching you. Be sure your family and friends clean their hands before and after visiting you. Do not be afraid to remind them. * Care for your wound at home as told by your doctor or nurse * Call your doctor right away if you have fever, redness, increased pain, or drainage at the surgery site. Further questions? Contact the doctor, nurse or the Infection Prevention and Control department if you have any questions. PATIENT RIGHTS AND RESPONSIBILITIES As a patient at [facility], you have the right to: Receive medical care and be informed of who is taking care of you Be treated with dignity and respect Have a family member/district sales representative of choice and your physician notified of your admission Receive information and actively participate in decisions about your care and treatment Refuse care, treatment and services Decide who may provide your support and speak for you Access holiness and spiritual services Participate in ethical issues and questions about your care Receive private and confidential care Have appropriate assessment and management of your pain Know guest visitation restrictions or limitations Have an advance directive Access protective services Consent or refuse to participate in research studies or production or recordings, films or other images Have resolution of your complaints Receive information of hospital charges and payment methods Patient/patient district sales representative responsibilities are to: Provide information about health status to facilitate care, treatment and services Follow the treatment, plan, keep appointments and speak up when you do not understand the plan Respect the rights of other patients and healthcare personnel Follow organizational rules and regulations that support quality care and a safe environment Fulfill financial obligations as promptly as possible PATIENT RIGHTS AND RESPONSIBILITIES As a patient at [facility], you have the right to: Receive medical care and be informed of who is taking care of you Be treated with dignity and respect Have a family member/district sales representative of choice and your physician notified of your admission Receive information and actively participate in decisions about your care and treatment Refuse care, treatment and services Decide who may provide your support and speak for you Access holiness and spiritual services Participate in ethical issues and questions about your care Receive private and confidential care Have appropriate assessment and management of your pain Know guest visitation restrictions or limitations Have an advance directive Access protective services Consent or refuse to participate in research studies or production or recordings, films or other images Have resolution of your complaints Receive information of hospital charges and payment methods Patient/patient district sales representative responsibilities are to: Provide information about health status to facilitate care, treatment and services Follow the treatment, plan, keep appointments and speak up when you do not understand the plan Respect the rights of other patients and healthcare personnel Follow organizational rules and regulations that support quality care and a safe environment Fulfill financial obligations as promptly as possible Surgical Site Infection Prevention What is a Surgical Site Infection? Infection can happen to the area of the body where surgery is done. This is called a surgical site infection (SSI). A SSI does not happen very often. Can SSIs be treated? Antibiotics are used to treat SSI. Some patients may need another surgery to treat the infection. The doctor will discuss treatment options with you. What are some of the things that hospitals are doing to prevent SSIs? Soap and water or alcohol hand rub are used before and after caring for each patient. Special soap is used to clean surgery workers hands and arms just before the surgery. Masks, gowns, gloves and hair covers are worn during the surgery to keep the area clean. Hair in the surgery area may be removed with clippers (not razors). A special soap that kills germs is used to clean the skin at the surgery site. Antibiotics may be given before the surgery starts. What can you do to prevent SSIs? Before surgery: You may be asked to shower or bathe with a special soap that kills germs the night before and the day of surgery. Use the soap as you were told. If you smoke, stop or cut down. Ask your doctor about ways to quit. Do not shave near where you will have surgery. Shaving can irritate the skin and make it easier to get and infection. After surgery: Be sure that the doctors and nurses clean their hands before and after touching you. Be sure your family and friends clean their hands before and after visiting you. Do not be afraid to remind them. * Care for your wound at home as told by your doctor or nurse * Call your doctor right away if you have fever, redness, increased pain, or drainage at the surgery site. Further questions? Contact the doctor, nurse or the Infection Prevention and Control department if you have any questions. documented in this encounter [facility] 02-11-2024 History of Present illness Narrative Images from the original note were not included. Chief Complaint: History of Present Illness: Arabella Hernandez is a 33 y.o. female who presents today for evaluation of incisional and umbilical hernias. She had a in September of 2023. She has noticed progressive bulging in the suprapubic region to the midline and slightly to the right. She had a CT scan of the abdomen pelvis recently. I did independently review the CT scan which does show a small umbilical hernia and a larger hernia in the suprapubic region. I did review her last evaluation with her OBGYN physician. I did review her most recent CBC which was relatively normal and I reviewed her recent chemistry profile which was normal except for a mildly elevated ALT at 47. She was experiencing increasing pain at the hernia site and would like to get the hernia repaired. She has had a laparoscopy and the recent but no other abdominal surgery Review of Systems Constitutional: Negative. Respiratory: Negative. Cardiovascular: Negative. Past Medical History: Diagnosis Date Anxiety Carpal tunnel syndrome Depression Enlarged ovary GERD (gastroesophageal reflux disease) Low back pain Obesity Visual impairment Past Surgical History: Procedure Laterality Date SECTION 09/24/2023 EXPLORATORY LAPAROTOMY INJECTION MEDIAL BRANCH NERVE BLOCK Bilateral L 4/5, 5/1 Bilateral 10/31/2019 Performed by Mina Silva MD at [facility] IN[facility] MEDIAL BRANCH NERVE BLOCK Bilateral L 4/5,5/1 Bilateral 09/19/2019 Performed by Mina Silva MD at [facility] SACROILIAC NERVE Bilateral 05/02/2019 Performed by Mina Silva MD at [facility] WISDOM TOOTH EXTRACTION 09/2011 No Known Allergies Current Outpatient Medications: escitalopram (LEXAPRO) 20 mg tablet, Take 1 tablet (20 mg total) by mouth in the morning., Disp: , Rfl: magnesium oxide (MAGOX) 400 mg tablet, Take 1 tablet by mouth in the morning and 1 tablet before bedtime, Disp: 30 tablet, Rfl: 2 mupirocin (BACTROBAN) 2 % ointment, Apply 1 Application topically 3 (three) times a day., Disp: 15 g, Rfl: 1 omeprazole (PriLOSEC OTC) 20 mg EC tablet, Prilosec OTC 20 mg tablet,delayed release, Disp: , Rfl: PLUS, CALCIUM CARB, 27 mg iron- 1 mg tablet, , Disp: , Rfl: norethindrone (MICRONOR) 0.35 mg tablet, Take 1 tablet (0.35 mg total) by mouth., Disp: , Rfl: Social History Socioeconomic History Marital status: Legally Spouse name: Not on file Number of children: Not on file Years of education: Not on file Highest education level: Not on file Occupational History Not on file Tobacco Use Smoking status: Former Current packs/day: 0.50 Average packs/day: 0.5 packs/day for 10.0 years (5.0 ttl pk-yrs) Types: Cigarettes, Vaping/E-cigarettes Smokeless tobacco: Never Vaping Use Vaping status: Never Used Substance and Sexual Activity Alcohol use: Yes Alcohol/week: 1.0 standard drink of alcohol Types: 1 Drinks containing 0.5 oz of alcohol per week Comment: Occasional Drug use: No Sexual activity: Yes Partners: Male control/protection: OCP Other Topics Concern Not on file Social History Narrative Not on file Social Drivers of Health Financial Resource Strain: Low Risk (02/06/2023) Overall Financial Resource Strain (CARDIA) Difficulty of Paying Living Expenses: Not hard at all Food Insecurity: No Food Insecurity (01/14/2024) Hunger Screening Food Insecurity - Worry: Never [...] Hypertension Mother Alcohol abuse Mother COPD Mother Depression Mother Mental illness Mother Breast cancer Paternal Aunt Lupus Paternal Aunt Breast cancer Maternal Grandmother Diabetes Maternal Grandfather Depression Maternal Grandfather Mental illness Maternal Grandfather Heart disease Paternal Grandfather Physical Exam Constitutional: Appearance: Normal appearance. HENT: Head: Normocephalic and atraumatic. Pulmonary: Effort: Pulmonary effort is normal. No respiratory distress. Abdominal: General: There is no distension. Palpations: Abdomen is soft. Hernia: A hernia is present. Skin: General: Skin is warm and dry. Neurological: General: No focal deficit present. Mental Status: She is alert and oriented to person, place, and time. Labs: Lab Results Component Value Date WBC 7.6 12/13/2023 HGB 11.9 12/13/2023 HCT 37.3 12/13/2023 MCV 77 (L) 12/13/2023 PLT 275 12/13/2023 Lab Results Component Value Date GLU 82 12/13/2023 CALCIUM 9.2 12/13/2023 K 4.4 12/13/2023 CO2 24 12/13/2023 CL 107 12/13/2023 BUN 12 12/13/2023 CREATININE 0.72 12/13/2023 No results found for: AMYLASE Lab Results Component Value Date LIPASE 39 09/14/2016 Lab Results Component Value Date ALT 47 (H) 12/13/2023 AST 40 12/13/2023 ALKPHOS 129 12/13/2023 No results found for: INR , PROTIME Assessment: Arabella Hernandez is a 33 y.o.female with small umbilical and larger incisional hernias. Plan: I have advised hernia repair. I would like to perform this in a minimally invasive robotic fashion. If she has severe intra-abdominal adhesions an open approach may become necessary, but I think this is unlikely.I have specifically discussed the use of prosthetic mesh with this patient for hernia repair. This will be a major elective surgical procedure under general anesthesia. She will have multiple high-risk factors related to BMI of 43, asthma, sleep apnea. Surgery will be arranged in the near future. Mari Arora MD [facility] General Surgery documented in this encounter [facility] 01-28-2024 History of Present illness Narrative Asynchronous E-Visit I have reviewed the patient entered E-Visit (Electronic Visit) request and the patient responses to the questions contained in the condition-specific questionnaire submitted. The patient's symptom is appropriate for an E-Visit, and they consented to understanding the potential risks, benefits, and alternatives of E-Visit delivery of care. The patient agreed to the E-Visit MyChart terms and conditions including the cost of care for the E-Visit and desires to be treated via an E-Visit. The patient is an established patient, but is not seeking information exclusively about a problem treated during a [id number] encounter in the last seven days. E-Visit HPI Travel Screening 01/28/2024 1:08 PM EDT - Filed by Patient Do you have any of the following new or worsening symptoms? Cough; Fatigue; Severe headache; Sore throat Have you recently been in contact with someone who was sick? Yes Mychart E-Visit Sinus 1 01/28/2024 1:19 PM EDT - Filed by Patient Which of the following have you been experiencing? Congested nose; Pain around the nose and face; Headache; Ear pain; Neck pain; Throat pain; Cough Have you had any of the following? Difficulty swallowing; Difficulty seeing or seeing blurry or double Please enter a few details about your swallowing, breathing, or visual problems. I have pain in the back left side of my throat, making it difficult to swallow. Vision problems are possibly due to my eyes being dry and irritated. No severe breathing troubles, just some congestion which seems to be significantly irritating my throat and causing ear and neck pain. How long have you been having these symptoms? For a few days Do you have a fever? No, I do not have a fever Do you smoke? No Have you ever smoked? I smoked in the past, but quit Do you have any chronic illnesses, such as diabetes, heart disease, or lung disease, or any illness that would weaken your body's ability to fight infection? No Have you experienced similar problems in the past? Yes What treatments have worked in the past? What has not worked? Antibiotics usually work fine. OTC medications like allergy and Tylenol don t work as well, they only give me a little relief. Is this illness similar to previous illnesses you have had? How is it the same? How is it different? It feels like a typical sinus/ear infection. Nothing unusual or out of the ordinary. Just super uncomfortable and not fun at all :( Have you recently been hospitalized? No What medications are you currently taking for these symptoms? Pain medicine; Nose spray Please enter the names of any medications you are taking, or any other treatments you are trying. Flonase, acetaminophen Are you ? I am confident that I am not Anything else you would like to add? E-Visit Assessment Arabella's self-reported symptoms are consistent with No primary diagnosis found.. Additional pertinent history obtained from the patient after E-Visit submission: none E-Visit Plan: If any medications were prescribed, these were sent electronically to the pharmacy Arabella indicated on the E-Visit submission. Orders Placed or Reconciled This Encounter Medications amoxicillin (AMOXIL) 875 mg tablet Sig: Take 1 tablet (875 mg total) by mouth in the morning and 1 tablet (875 mg total) before bedtime. Do all this for 7 days. Dispense: 14 tablet Refill: 0 Arabella Heranndez was sent a [facility] message notifying them of the completed E-Visit. They were sent and After Visit Summary (AVS) with the diagnoses, along with instructions and any applicable education material regarding treatment of this diagnosis. Medications, if prescribed, are noted above and medication counseling was provided within the AVS document or at the pharmacy. Patient was advised to contact us with any questions or concerns or if the condition does not respond as expected, based upon the counseling provided. Total time for E-Visit encounter (actual work time, excluding time waiting for patient responses): EVisit Evaluation and Management: 5-10 minutes ([id number]) Kwaku Guadalupe MD [facility] History of Present illness Narrative Ct a Reason for Appointment: Patient ID: Arabella Hernandez is a 33 y.o. female who presents for Wound Check Patient presents today for Consult appointment. MEDICATIONS Current Outpatient Medications Medication Instructions escitalopram (LEXAPRO) 20 mg, Oral, Daily ibuprofen 400 MG tablet TAKE 2 TABLETS BY MOUTH EVERY 8 HOURS magnesium oxide (Mag-Ox) 400 MG tablet Take 1 tablet by mouth in the morning and before bedtime magnesium 200 mg, Oral, Daily mupirocin (Bactroban) 2 % ointment 1 Application, 3 times daily omeprazole (PRILOSEC) 20 mg, Oral, Nightly, Do not crush or chew. Vit-Fe Fumarate-FA ( Vitamins) 28-0.8 MG tablet 1 tablet, Oral, Daily ALLERGIES No Known Allergies PROBLEMS Active Ambulatory Problems Diagnosis Date Noted Nail fungal infection 06/04/2023 Resolved Ambulatory Problems Diagnosis Date Noted History of maternal fourth degree perineal laceration, currently 06/04/2023 Second trimester 06/04/2023 Supervision of high risk in third trimester 09/12/2023 Obesity in , antepartum 09/12/2023 Past Medical History: Diagnosis Date Anxiety with depression Chronic low back pain Enlarged ovary Urinary incontinence 08/14/2022 HISTORY PAST MEDICAL HISTORY SOCIAL HISTORY Past Medical History: Diagnosis Date Anxiety with depression Anxiety / Depression Chronic low back pain Pain MGMT ; Dr. Silva Enlarged ovary Urinary incontinence 08/14/2022 Social History Tobacco Use Smoking status: Former Current packs/day: 0.50 Average packs/day: 0.5 packs/day for 5.0 years (2.5 ttl pk-yrs) Types: Cigarettes Smokeless tobacco: Never Substance Use Topics Alcohol use: Not Currently Comment: monthly or less Drug use: Never FAMILY HISTORY Family History Problem Relation Name Age of Onset Hypertension Mother Dl Jaziel COPD Mother Dl Sheriff Breast cancer Mother Dl Sheriff No Known Problems Brother 2 Breast cancer Maternal Grandmother Trinidad Hernandez Rheum arthritis Maternal Grandfather Charles Hernandez Osteoarthritis Maternal Grandfather Charles Hernandez Heart attack Paternal Grandfather Breast cancer Father's Sister Lupus Father's Sister No Known Problems Daughter SURGICAL HISTORY Past Surgical History: Procedure Laterality Date SECTION, LOW TRANSVERSE EXPLORATORY LAPAROTOMY 01/2020 WISDOM TOOTH EXTRACTION 2012 [place] Teeth REVIEW OF SYSTEMS Review of Systems: Review of Systems Gastrointestinal: Positive for abdominal distention and abdominal pain. All other systems reviewed and are negative. OBJECTIVE Objective: Physical Exam Constitutional: Appearance: Normal appearance. She is well-developed. Cardiovascular: Rate and Rhythm: Normal rate and regular rhythm. Pulmonary: Effort: Pulmonary effort is normal. Breath sounds: Normal breath sounds. Abdominal: General: Bowel sounds are normal. There is no distension. Palpations: Abdomen is soft. Tenderness: There is no abdominal tenderness. There is no guarding or rebound. Musculoskeletal: General: No swelling. Normal range of motion. Right lower leg: No edema. Left lower leg: No edema. Neurological: Mental Status: She is alert and oriented to person, place, and time. Skin: General: Skin is warm and dry. Psychiatric: Mood and Affect: Mood normal. Behavior: Behavior normal. Vitals and nursing note reviewed. Exam conducted with a diesel service technician present. Vitals: Estimated body mass index is 43.08 kg/m as calculated from the following: Height as of 24: 5' 1 . Weight as of this encounter: 228 lb. BP: 122/78 No LMP recorded. ASSESSMENT & PLAN ICD-10-CM 1. Postop check Z09 Patient presents today to assess for incisional hernia. Will order CT scan to assess for hernia. Patient voiced that her son had her lift him possibly too soon after delivery. Patient will be referred to Dr. Aranda for hernia repair. Documented by Maryann Lebron LPN on behalf of: Rao Guadalupe DO documented in this encounter [facility] 01-14-2024 History of Present illness Narrative SUBJECTIVE Chief Complaint: Urinary incontinence, fecal incontinence, perineal pain HPI Ms. Arabella Hernandez is a 33 y.o. female who is self-referred with several urogynecological complaints. She is a 4 para 2. On August 03, 2022, she had an induction of labor which resulted in a vacuum assisted vaginal delivery. This was complicated by 0.25 degree laceration. She believes that she has had some subsequent issues related to this laceration. She has since had an elective in September of 2023. Symptoms include urinary leakage. This occurs daily in small amounts. She does not wear pads but states that she probably should. It occurs both with urgency and with Valsalva. It occurs when going from a seated to standing position and in the form of postvoid dribbling. She notes urinary frequency and nocturia with 2-4 voids nightly. No dysuria, gross hematuria, recurrent infections, symptoms of voiding dysfunction. No prior treatments for these symptoms. She is also bothered by perineal pain. This occurs during and after intercourse. She states that the perineum feels weak . Pain includes burning and stretching type symptoms. She believes she may occasionally note passage of stool into the vagina. This most typically occurs after intercourse. She sees it on the toilet paper with wiping. She believes she may pass gas through the vagina as well. She is bothered by fecal incontinence. This occurs in small volumes with loose stool most typically but may also occur even with formed stool. It occurs about once weekly. It typically occurs with fecal urgency. Past Medical History: Diagnosis Date Anxiety Carpal tunnel syndrome Depression Enlarged ovary GERD (gastroesophageal reflux disease) Low back pain Obesity Visual impairment Past Surgical History: Procedure Laterality Date SECTION 09/24/2023 EXPLORATORY LAPAROTOMY INJECTION MEDIAL BRANCH NERVE BLOCK Bilateral L 4/5, 5/1 Bilateral 10/31/2019 Performed by Mina Silva MD at [facility] INJECTION MEDIAL BRANCH NERVE BLOCK Bilateral L 4/5,5/1 Bilateral 09/19/2019 Performed by Mina Silva MD at [facility] INJECTION SACROILIAC NERVE Bilateral 05/02/2019 Performed by Mina Silva MD at [facility] WISDOM TOOTH EXTRACTION 09/2011 Social History Tobacco Use Smoking status: Former Current packs/day: 0.50 Average packs/day: 0.5 packs/day for 10.0 years (5.0 ttl pk-yrs) Types: Cigarettes, Vaping/E-cigarettes Smokeless tobacco: Never Vaping Use Vaping status: Never Used Substance Use Topics Alcohol use: Yes Alcohol/week: 1.0 standard drink of alcohol Types: 1 Drinks containing 0.5 oz of alcohol per week Comment: Occasional Drug use: No Family History Problem Relation Age of Onset Hypertension Mother Alcohol abuse Mother COPD Mother Depression Mother Mental illness Mother Breast cancer Paternal Aunt Lupus Paternal Aunt Breast cancer Maternal Grandmother Diabetes Maternal Grandfather Depression Maternal Grandfather Mental illness Maternal Grandfather Heart disease Paternal Grandfather Current Outpatient Medications: escitalopram (LEXAPRO) 20 mg tablet, Take 1 tablet (20 mg total) by mouth in the morning., Disp: , Rfl: magnesium oxide (MAGOX) 400 mg tablet, Take 1 tablet by mouth in the morning and 1 tablet before bedtime, Disp: 30 tablet, Rfl: 2 mupirocin (BACTROBAN) 2 % ointment, Apply 1 Application topically 3 (three) times a day., Disp: 15 g, Rfl: 1 norethindrone (MICRONOR) 0.35 mg tablet, Take 1 tablet (0.35 mg total) by mouth., Disp: , Rfl: omeprazole (PriLOSEC OTC) 20 mg EC tablet, Prilosec OTC 20 mg tablet,delayed release, Disp: , Rfl: PLUS, CALCIUM CARB, 27 mg iron- 1 mg tablet, , Disp: , Rfl: ALLERGIES Patient has no known allergies. OBJECTIVE VITAL SIGNS BP 132/88 Pulse 77 Ht 154.9 cm (5' 1 ) Wt 103.1 kg (227 lb 3.2 oz) BMI 42.93 kg/m PHYSICAL EXAM Constitutional: General: She is not in acute distress. Cardiovascular: Rate: Normal rate. Lower extremity edema: none. Pulmonary: Effort: No respiratory distress, normal effort. Abdominal: General: There is no distension. Palpations: Abdomen is soft. There is no hepatomegaly, splenomegaly or mass. Tenderness: There is no abdominal tenderness. Hernia: No hernia is observable. Genitourinary: External exam Vulva and introitus: Normal appearance for age, no lesions, no erythema. Urethra: No prolapse, mass, urethral pain or urethral lesion. Bladder: Not tender, no distention. Bartholin's glands: Normal size, non-tender. Perineum/anus: Normal appearance, no lesions or hemorrhoids. Internal exam Vagina: Mucosa is healthy and pink, no discharge. Cervix: Normal os, no lesions, no cervical motion tenderness. Uterus: Normal size and position, mobile, no tenderness, no masses. Adnexa: Bimanual exam limited per body habitus, ovaries not palpable, no tenderness or masses. Rectum: NOE deferred. Pelvic floor spasm/myalgia: None Leakage with hard coughing or Valsalva? not present Modified [place] Scale 0-5: 1, minor muscle flicker POP-Q: Negative Standing Stress Test: Negative Voided Volume: 125 mL Results for orders placed or performed in visit on 01/14/24 POCT urinalysis dipstick only Collection Time: 01/14/24 3:56 PM Result Value Ref Range External Poct Urine Color Yellow External Poct Urine Appearance Clear External Poct Urine Glucose Negative External Poct Urine Ketones Negative External Poct Urine Blood Negative External Poct Urine Ph 6.0 External Poct Urine Protein Negative External Poct Urine Nitrite Negative External Poct Urine Leukocyte Esterase Negative Measure post void residual Collection Time: 01/14/24 3:56 PM Result Value Ref Range Volume 0 ml ASSESSMENT/PLAN ICD-10-CM 1. Mixed stress and urge urinary incontinence N39.46 2. History of fourth degree perineal laceration Z87.59 3. Incontinence of feces with fecal urgency R15.9 R15.2 4. Perineal pain R10.2 5. Urinary frequency R35.0 Impression and Plan: 33 y.o. female with mixed urinary incontinence. We discussed incontinence at length including epidemiology, pathophysiology, risk factors for development, associated symptoms, and treatment options. We discussed treatment options, from least to most invasive, including expectant management, strengthening the pelvic floor with Kegel exercises and/or pelvic floor physical therapy, dietary and behavioral modification, medication trial, continence pessary, and surgical management options. She was provided with written information on incontinence and overactive bladder from . She is going to proceed with conservative management with pelvic floor strengthening and a referral has been placed for pelvic floor physical therapy. We also discussed dietary and behavioral modification with avoidance of bladder irritants. She is not certain if she has completed childbearing and I have advised against any definitive surgical management of the stress incontinence until she has done so. She has a occasional small volume fecal incontinence, most typically with loose stool. We discussed stool bulking with high-fiber diet and addition of probiotic. In addition, she will work on pelvic floor strengthening with pelvic floor physical therapy. She was advised that there is no evidence of significant perineal scarring or rectovaginal fistula on today's examination. There was no evidence of significant pelvic floor spasm or myalgia either. Her urinary assessment reveals a normal postvoid residual and a negative urinalysis today. This chart note was put together with the assistance of a speech recognition program. While intending to generate a timely document that accurately reflects the contents of the visit, no guarantee can be provided that every grammatical or spelling mistake has been or will be identified or corrected. Thank you for your understanding when reviewing this and similarly generated notes. documented in this encounter [facility] 05-23-2023 History of Present illness Narrative Arabella Hernandez had concerns including Eye Exam. 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 Patient is 21 weeks , experiencing blurred vision for about 6-7 months. Patient is unsure of when her last eye exam was. Patient uses OTC ATs PRN Last edited by Yann Cao, OD on 05/23/2023 3:36 PM. ROS Positive [...] has a past surgical history that includes [place] tooth extraction (09/2011); h-fl epidural lumbar steroid [...] Normal Refraction Manifest Refraction (Auto) Sphere Cylinder [place] Right -0.25 -0.25 159 Left [place] -0.50 052 Final Rx Sphere Cylinder [place] Dist [place] Right -0.25 Sphere 20/25 Left [...] agrees. Return Visit: 1 year VE Physician: YANN CAO OD Scribe: Rola Grover Scribe Statement: Scribed for and in the presence of YANN CAO OD by Rola Grover I, YANN CAO OD personally performed the services described in the documentation, as scribed by Rola Grover in my presence, and it is both accurate and complete. documented in this encounter [facility] 05-14-2023 History of Present illness Narrative [facility] Maternal- Medicine Consult Note Reason For Consult: anxiety and depression HPI: Arabella Hernandez is a 32 y.o. at 19w3d with Estimated Date of Delivery: 10/05/23 based on who presented for consultation from Rao Cook DO regarding Chief Complaint Patient presents [...] INJECTION MEDIAL BRANCH NERVE BLOCK Bilateral L 4/, 07/31 Bilateral 10/31/2019 Performed by Mina Silva MD at [facility] IN[facility] MEDIAL BRANCH NERVE BLOCK Bilateral L 4/5,5/1 Bilateral 09/19/2019 Performed by Mina Silva MD at [facility] SACROILIAC NERVE Bilateral 05/02/2019 Performed by Mina Silva MD at [facility] WISDOM TOOTH EXTRACTION 09/2011 Allergies: No Known [...] month after . with escitalopram reviewed the information resources director should be notified. We discussed that data [...] for VTE prevention (LMWH) during delivery hospitalization. Oil Heater Operator should be notified about antidepressant use during the Plan reviewed with patient. She vocalized understanding all questions answered. The patient is to continue with routine care in your office Thank you for allowing me to participate in her care. Please contact me if you have any concerns. Roman Cornell MD, FACOG (she/hers) Maternal- Medicine [facility] [place] [address] [place] [address] This document was created with [employer] technology. Though I make every effort to review the dictation as it is transcribed, on occasion the spoken word can be misinterpreted by the technology leading to inappropriate words, phrases, or sentences. This note is addressed to the requesting provider as a consultation for clinical guidance. Specific medical abbreviations are occasionally used and those are generally approved by the [place]?Board of?Obstetrics and?Gynecology?as well as?Rodrigue abel abbreviations. The above plan of care was based solely on the diagnoses for which a consultation was requested. ?More frequent testing may be indicated based on her other medical/obstetrical conditions. The management of other or medical conditions is beyond the scope of requested consultation and will continue to be followed by the primary welding inspector or primary care provider. Note to patient: [...] yes Have you been seen here at [facility] in a previous ? no Recent ER visits or hospitalizations? no Bring blood sugar log or meter with you today? (Please bring them with you for every visit at [facility]) n/a Traveled outside the country in the past 6 month no Any concerns that you would like me to mention to the provider today? no documented in this encounter [facility] Evaluation note Diagnosis 19 weeks gestation of - Primary Mixed anxiety and depressive disorder Dysthymic disorder Depression affecting Anxiety during Hx of maternal laceration, 4th degree, currently with other poor obstetric history headache in second trimester Obesity affecting in second trimester, unspecified obesity type [facility] Diagnosis Myopia of both eyes- Primary Regular astigmatism of left eye [facility] Diagnosis Mixed stress and urge urinary incontinence- Primary Mixed incontinence urge and stress (male)(female) History of fourth degree perineal laceration Incontinence of feces with fecal urgency Perineal pain Urinary frequency [facility] Diagnosis Postop check Follow-up examination, following unspecified surgery Incisional hernia, without obstruction or gangrene documented in this encounter [facility]* Diagnosis Acute non-recurrent frontal sinusitis- Primary [facility] Diagnosis Incarcerated ventral hernia- Primary Unspecified ventral hernia with obstruction [facility] Diagnosis Onychocryptosis- Primary Ingrowing nail Pain in right foot Pain in soft tissues of limb Left foot pain Pain in soft tissues of limb [facility]* Diagnosis Bilateral carpal tunnel syndrome- Primary Carpal tunnel syndrome Hand pain, right Pain in soft tissues of limb Hand pain, left Pain in soft tissues of limb [facility]* Diagnosis Incarcerated ventral hernia- Primary Unspecified ventral hernia with obstruction [facility]* Diagnosis Blurry vision, bilateral- Primary Other specified visual disturbances Chronic migraine without aura without status migrainosus, not intractable Mixed anxiety and depressive disorder Dysthymic disorder Dizziness Dizziness and giddiness documented in this [facility]* Diagnosis Onychocryptosis- Primary Ingrowing nail Pain in right foot Pain in soft tissues of limb Left foot pain Pain in soft tissues of limb documented [facility] this [facility]* Diagnosis Anxiety disorder, unspecified type- Primary Recurrent major depressive disorder, in partial remission ([facility]) documented [facility] this encounter [facility]* Diagnosis Pre-op evaluation- Primary KESHIA (obstructive sleep apnea) Obstructive sleep apnea (adult) (pediatric) Class 3 severe obesity due to excess calories with serious comorbidity and body mass index (BMI) of 40.0 to 44.9 in adult ([facility]) Mixed anxiety and depressive disorder Dysthymic disorder Carpal tunnel syndrome of right wrist Near syncope Elevated LFTs Other abnormal blood chemistry documented [facility] this [facility]* Diagnosis Anxiety disorder, unspecified type- Primary Recurrent major depressive disorder, in partial remission ([facility]) documented in this encounter [facility] SystemInstructionsNot on filedocumented in this encounter [facility]* Attachments The following attachments cannot be sent through Care Everywhere. * Preeclampsia (Turkish) documented in this encounter[facility] SystemInstructionsNot on file documented in [facility] SystemInstructionsNot on file documented in this [facility] SystemInstructionsNot on file documented in this [facility] SystemInstructionsNot on file documented in this encounterPro[facility] Health SystemInstructionsNot on file documented in this encounter[facility] SystemInstructionsNot on file documented in this encounter[facility] SystemInstructionsNot on file documented in this encounter[facility] SystemInstructionsNot on file documented in this encounter[facility] SystemInstructionsNot on file [facility] Purpose Family History No Family [...] section and content) DATE CREATED AUTHOR 05/23/2021 [facility] DATE CREATED AUTHOR AUTHOR'S ORGANIZ ATION 11/12/2021 [facility] DATE CREATED AUTHOR AUTHOR'S ORGANIZ ATION 08/12/2022 [facility] DATE CREATED AUTHOR AUTHOR'S ORGANIZ ATION 09/03/2023 [facility] DATE CREATED AUTHOR AUTHOR'S ORGANIZ ATION 01/22/2024 [facility] EP[facility] DATE CREATED AUTHOR AUTHOR'S ORGANIZ ATION 04/16/2024 [facility] DATE CREATED AUTHOR AUTHOR'S ORGANIZ ATION 05/11/2024 [facility] DATE CREATED AUTHOR AUTHOR'S ORGANIZ ATION 05/12/2024 [facility] Care Teams (unrecognized sec tion and content) Material Control Manager Relationship Specialty Start Date End Date Tay Yeung MD [address] [facility] [place] [address] PCP - General Family Medicine 09/13/22 Elias Tafoya DO [address] [place] [address] PCP - [facility] 09/30/22 Material Control Manager Relationship Specialty Start Date End Date Tay Yeung MD [address] [place] [address] PCP - General Family Medicine 09/13/22 Elias Tafoya DO [address] [place] [address] PCP - [facility] 09/30/22 Material Control Manager Relationship Specialty Start Date End Date Elias Tafoya DO [address] [place] [address] PCP - General Occupational Medicine 04/20/23 Material Control Manager Relationship Specialty Start Date End Date Elias Tafoya DO [address] [place] [address] PCP - General Occupational Medicine 04/20/23 Material Control Manager Relationship Specialty Start Date End Date Elias Tafoya DO [address] [place] [address] PCP - General Occupational Medicine 04/20/23 Material Control Manager Relationship Specialty Start Date End Date Montrell Timmons, [employer] SH[employer] MANAGER [address] [place] [address] PCP - General 06/10/23 Material Control Manager Relationship Specialty Start Date End Date Tay Yeung MD [address] [place] [address] PCP - General Family Medicine 09/13/22 Material Control Manager Relationship Specialty Start Date End Date Tay Yeung MD [address] [place] [address] PCP - General Family Medicine 09/13/22 Material Control Manager Relationship Specialty Start Date End Date IainMontrell hernandez, [employer]SI[employer] SHIFT MANAGER [address] [place] [address] PCP - General 06/10/23 Material Control Manager Relationship Specialty Start Date End Date IainMontrell Peggy [employer]SI[employer] SHIFT MANAGER [address] [place] [address] PCP - General 06/10/23 Material Control Manager Relationship Specialty Start Date End Date Montrell Timmons [employer] SHIFT MANAGER [address] [place] [address] PCP - General 06/10/23 Material Control Manager Relationship Specialty Start Date End Date Montrell Timmons [employer] SHIFT MANAGER [address] [place] [address] PCP - General 06/10/23 Material Control Manager Relationship Specialty Start Date End Date Montrell Timmons [employer] MANAGER [address] [place] [address] PCP - General 06/10/23 Material Control Manager Relationship Specialty Start Date End Date Montrell Timmons [employer] SHIFT MANAGER [address] [place] [address] PCP - General 06/10/23 Material Control Manager Relationship Specialty Start Date End Date Montrell Timmons [employer] SHIFT MANAGER [address] [place] [address] PCP - General 06/10/23 Material Control Manager Relationship Specialty Start Date End Date Montrell Timmons, [employer] SHIFT MANAGER [address] [place] [address] PCP - General 06/10/23 Material Control Manager Relationship Specialty Start Date End Date oMntrell Timmons, [employer] SHIFT MANAGER [address] [place] [address] PCP - General 06/10/23 Material Control Manager Relationship Specialty Start Date End Date Tay Yeung MD [address] [place] [address] PCP - General Family Medicine 09/13/22 Reason for Visit (unrecogniz ed section and content) Reason Comments use of zoloft during Reason Comments Eye Exam Reason Comments Consult 4th degree tear Urinary Incontinence Reason Comments Wound Check Reason Comments Sinus Problem Entered automaticall y based on patient selection in [facility] Reason Comments New Patient The patient is here to establish care for an incisional hernia. Reason Comments New Patient Ingrown Toenail Reason Comments Pain Pt states she was di agnosed w/ CTS by [facility] approx 10 yrs. C/o achy pain, stiffness, numbness. Pt states during her her sx worsened. Pt states she has a lot of pain in the wrist and sometimes it is sharp, shooting pain. Pt wears braces at night on occasion. RT>LT Numbness Pt states she was di agnosed w/ CTS by [facility] approx 10 yrs. C/o achy pain, stiffness, numbness. Pt states during her her sx worsened. Pt states she has a lot of pain in the wrist and sometimes it is sharp, shooting pain. Pt wears braces at night on occasion. RT>LT Specialty Diagnoses / Procedures Referred By Becky burnette Referred To Contact Orthopedic Surgery Diagnoses Carpal tunnel syndrome on right Procedures AMB REFERRAL TO ORTHOPAEDIC SURGERY Yadi Yo, TYSON [address] [place] [address] Phone: tel: fax: Mari Issa MD [address] [address] Phone: tel: fax: Referral ID Status Reason Start Date Expiration Date V isits Requested Visits Authorized [id number] Pending Review 11/15/2023 05/13/2024 1 1 Reason Comments Post-op Reason Comments Procedure Partial Martixectomy Reason Comments Post-op matrixectomy Reason Comments Dizziness Pre op clearance rush Hubbard FOR RECORDS PERTAINING TO PATIENTS WHO ARE [...] BE BASED ON THE PRIMARY CLINICAL RECORDS. [employer] provides no warranty or guarantee of the accuracy or completeness of information in this document.
== END 2024-05-13 20:50 | disposition home or self-care (01) ==
LOC: LAB 20:49
PROVIDERS: PCP Family Medicine; Visit Provider Obstetrics & Gynecology
DX: Z01.419 Encounter for gynecological examination (general) (routine) without abnormal findings (principal)
CPT/HCPCS: 88175

== ENCOUNTER 2025-01-21 15:18 | Outpatient (OUT) | payer MEDICAID, SELFPAY ==
--- OUTSIDE RECORDS SUMMARY | 2025-01-21 15:32 | XMS_ITS | CCD ---
Author Organization [facility] Providers Care Telecasting Technician Name Role Phone DIAZ ., YADI Consulting Unavailable FURLONG, DR TAY Krishna Primary Care Unavailable DIAZ ., YADI Attending Unavailable DIAZ ., YADI Admitting Unavailable ANAYELI ., DR FROST Consulting Unavailable FURLONG, DR TAY Krishna Primary Care Unavailable ANAYELI ., DR FROST Attending Unavailable ANAYELI ., DR FROST Admitting Unavailable ZIEBER, DR VILMA Webb Consulting Unavailable [place], DR BEBO Chowdhury Consulting Unavailable FURLONG, DR [...] Krishna Primary Care Unavailable ANAYELI ., DR RFOST Attending Unavailable ANAYELI ., DR FROST Admitting [...] DR VILMA Webb Consulting Unavailable REQUEST, DR NONE LISTED Primary Care Unavaila ble DIAZ ., [...] Unavailable Furlong Tay ZEE Primary Care Provider [phone] Elias Tafoya DO Unavailable [phone] Iain GLASS TECHNOLOGIST-[facility], [facility] Primary Care Provider KAYLA GUADALUPEY Attending Unavailable ANAYELI, RAO Attending Unavailable DIAZYADI LUU Attending Unavailable ANAYELI, RAO Attending Unavailable ANAYELI, RAO Attending Unavailable ANAYELI, RAO Attending Unavailable ANAYELI, RAO Attending Unavailable ANAYELI, RAO Attending Unavailable DIAZ, YADI Attending Unavailable ANAYELI, RAO Attending Unavailable Iain GLASS TECHNOLOGIST-[employer]ING [employer]MENT [employer], [facility] Primary Care Provider Elias Tafoya DO Primary Care Provider Iain GLASS TECHNOLOGIST-SCREEN PRINTING EQUIPMENT SETTER, [facility] Primary Care Provider LORIE JOHNSON Referring Unavailable IAIN, MONTRELL L Primary Care Unavailable IAIN, MONTRELL L Referring Unavailable IAIN, MONTRELL Primary Care Unavailable MARA ARNOLD Attending Unavailable YADI YO Referring Unavailable IAIN, MONTRELL L Primary Care Unavailable MARA ARNOLD Referring Unavailable IAIN, MONTRELL L Primary Care Unavailable MARA ARNOLD Referring Unavailable IAIN, MONTRELL L Primary Care Unavailable IAIN, MONTRELL L Attending Unavailable IAIN, MONTRELL L Referring Unavailable IAIN, MONTRELL L Primary Care Unavailable ALAM, AUGUSTINA ISIDORO Attending Unavailable IAIN, MONTRELL L Referring Unavailable IAIN, MONTRELL L Primary Care Unavailable IAIN, MONTRELL L Attending Unavailable IAIN, MONTRELL L Referring Unavailable IAIN, MONTRELL L Primary Care Unavailable ALAM, AUGUSTINA ISIDORO Attending Unavailable IAIN, MONTRELL L Referring Unavailable IAIN, MONTRELL L Primary Care Unavailable ALAM, AUGUSTINA ISIDORO Attending Unavailable IAIN, MONTRELL L Referring Unavailable IAIN, MONTRELL L Primary Care Unavailable MARA ARNOLD Attending Unavailable IAIN, MONTRELL L Referring Unavailable IAIN, MONTRELL L Primary Care Unavailable JESSY ORTIZ Attending Unavailable IAIN, MONTRELL L Referring Unavailable IAIN, MONTRELL L Primary Care Unavailable MARA ARNOLD Attending Unavailable IAIN, MONTRELL L Referring Unavailable IAIN, MONTRELL L Primary Care Unavailable ALAM, AUGUSTINA ARA Attending Unavailable IAIN, MONTRELL L Referring Unavailable IAIN, MONTRELL L Primary Care Unavailable IAIN, MONTRELL L Referring Unavailable IAIN, MONTRELL L Primary Care Unavailable MARY LOU BHATT Attending Unavailable IAIN, MONTRELL L Referring Unavailable IAIN, MONTRELL L Primary Care Unavailable IQRA DONOVAN Attending Unavailable IQRA DONOVAN Referring Unavailable IAIN, MONTRELL L Primary Care Unavailable ANY ORTEGA Attending Unavailable IQRA DONOVAN Referring Unavailable IAIN, MONTRELL L Primary Care Unavailable ANY ORTEGA Attending Unavailable IAIN, MONTRELL L Referring Unavailable IAIN, MONTRELL L Primary Care Unavailable ANY ORTEGA Referring Unavailable IAIN, MONTRELL L Primary Care [...] L Primary Care Unavailable IAIN, MONTRELL L Primary Care Unavailable IAIN, MONTRELL L Referring Unavailable IAIN, MONTRELL L Primary Care Unavailable IAIN, MONTRELL L Referring Unavailable IAIN, MONTRELL L Primary Care Unavailable IAIN, MONTRELL L Referring Unavailable IAIN, MONTRELL L Primary Care Unavailable IAIN, MONTRELL L Referring Unavailable IAIN, MONTRELL L Primary Care Unavailable YANN CAO Attending Unavailable ELIAS TAFOYA Referring Unavailable IAIN, MONTRELL L Primary Care Unavailable IAIN, MONTRELL L Referring Unavailable IAIN, MONTRELL L Primary Care Unavailable IAIN, MONTRELL L Referring Unavailable IAIN, MONTRELL L Primary Care Unavailable IAIN, MONTRELL L Referring Unavailable PHONG MCFARLANE Attending Unavailable IAIN, MONTRELL L Primary Care Unavailable IAIN, MONTRELL L Referring Unavailable IAIN, MONTRELL L Primary Care Unavailable IAIN, MONTRELL L Referring Unavailable IAIN, MONTRELL L Primary Care Unavailable PHONG MCFARLANE Referring Unavailable PHONG MCFARLANE Attending Unavailable PHONG MCFARLANE Admitting Unavailable IAIN, MONTRELL L Primary Care Unavailable JESSY ORTIZ Referring Unavailable IAIN, MONTRELL L Primary Care Unavailable ANAYELI, RAO R Referring Unavailable IAIN, MONTRELL L Primary Care Unavailable ANAYELI, RAO R Referring Unavailable IAIN, MONTRELL L Primary Care Unavailable IAIN, MONTRELL L Referring Unavailable LORIE JOHNSON Attending Unavailable IAIN, MONTRELL L Primary Care Unavailable IAIN, MONTRELL L Primary Care Unavailable ANY ORTEGA Referring Unavailable Iain [facility], [facility] L Primary Care Provider LASHONDA SYLVESTER Attending Unavailable IAIN, MONTRELL L Referring Unavailable IAIN, MONTRELL L Primary Care Unavailable LASHONDA SYLVESTER Attending Unavailable IAIN, MONTRELL L Referring Unavailable IANI, MONTRELL L Primary Care Unavailable LASHONDA SYLVESTER Attending Unavailable IAIN, MONTRELL L Referring Unavailable IAIN, MONTRELL L Primary Care Unavailable LASHONDA SYLVESTER Attending Unavailable IAIN, MONTRELL L Referring Unavailable IAIN, MONTRELL L Primary Care Unavailable LASHONDA SYLVESTER Attending Unavailable IAIN, MONTRELL L Referring Unavailable IAIN, MONTRELL L Primary Care Unavailable LASHONDA SYLVESTER Attending Unavailable IAIN, MONTRELL L Referring Unavailable IAIN, MONTRELL L Primary Care Unavailable Allergies Allergy ClassificationReported Allergen(s)Allergy TypeDate of OnsetReaction(s) Facility (1 source)PenicillinsPropensity to adverse reactions to [facility]40[facility]78[facility] Medications Current Medications MedicationDrug Class(es)DatesSig (Normalized)Sig (Original)amoxicillin 500 mg oral capsule (3 sources)Penicillin-class AntibacterialStart: 10-25-2024 End: 83-56-8782cgbu 1 capsule by mouth in the morning, then take 1 capsule by mouth at bedtimeamoxicillin (AMOXIL) 500 mg capsule Take 1 capsule (500 mg total) by mouth in the morning and 1 capsule (500 mg total) before bedtime. Do all this for 10 days. 20 capsule 10/25/2024 11/04/2024 ActiveStart: 01-28-2024 End: 28-39-0600vtlo 1 tablet by mouth in the morning, then take 1 tablet by mouth at bedtimeamoxicillin (AMOXIL) 875 mg tablet Take 1 tablet (875 mg total) by mouth in the morning and 1 tablet (875 mg total) before bedtime. Do all this for 7 days. 14 tablet 01/28/2024 02/04/2024 Activecephalexin 500 mg oral capsule (11 sources)Cephalosporin AntibacterialStart: 11-13-2024 End: 49-03-9278yqvp 1 capsule by mouth in the morning, then take 1 capsule by mouth at bedtimeCEPHalexin (KEFLEX) 500 mg capsule Indications: Strep pharyngitis Take 1 capsule (500 mg total) by mouth in the morning and 1 capsule (500 mg total) before bedtime. Do all this for 10 days. 20 capsule 11/13/2024 11/23/2024 ActiveStart: 06-13-2024 End: 20-60-2075BPGFgjewbu (KEFLEX) 500 mg capsule Indications: Post-op pain Take 1 capsule (500 mg total) by mouthin the morning and 1 capsule (500 mg total) at noon and 1 capsule (500 mg total) in the evening and1 capsule (500 mg total) before bedtime. Do all this for 7 days. 28 capsule 06/13/2024 06/20/2024 Active Start: 08-28-2023 End: 91-45-3180vkbr 1 capsule by mouth three times dailyCEPHalexin (KEFLEX) 500 mg capsule Take 1 capsule (500 mg total) by mouth 3 (three) times a day for7 days. 21 capsule 08/28/2023 09/04/2023 Expiredcranberry fruit (CRANBERRY) 450 mg tablet (20 sources)take 1 tablet by mouth in the morningcranberry fruit (CRANBERRY) 450 mg tablet Take 1 tablet by mouth in the morning. Activedrospirenone 4 mg oral tablet (3 sources)ProgestinStart: 19-07-6339cdht 1 tablet by mouth once daily Drospirenone (Slynd) 4 MG tablet Indications: control counseling Take 4 mg by mouth Daily 28 tablet 11 05/13/2024 Activeergocalciferol 1.25 mg oral capsule (5 sources)Provitamin D2 CompoundStart: 12-05-2024 End: 89-62-6575xiqq 1 capsule by mouth every weekergocalciferol (VITAMIN D2) 1,250 mcg (50,000 unit) capsule Indications: Closed fracture of left ankle, initial encounter Take 1 capsule (50,000 Units total) by mouth once a week for 13 doses. 13 capsule 12/05/2024 02/28/2025 Activehydrocortisone 10 mg/ml / neomycin 3.5 mg/ml / polymyxin b 48608 unt/ml otic solution (2 sources)Aminoglycoside Antibacterial, Polymyxin-class Antibacterial, CorticosteroidStart: 01-12-2025 End: 00-76-1319iebbreqf-polymyxin-HC (CORTISPORIN) otic solution Apply 1 drop twice daily to affected nail. 10 mL 2 01/12/2025 01/22/2025 Activeibuprofen 400 mg oral tablet (7 sources)Nonsteroidal Anti-inflammatory DrugStart: 16-86-4843xcro 2 tablets by mouth every eight hoursibuprofen 400 MG tablet TAKE 2 TABLETS BY MOUTH EVERY 8 HOURS 09/27/2023 Activelactobacillus acidophilus [id number] unt / pectin 10 mg oral capsule (20 sources)take 1 capsule by mouth in the morningacidophilus-pectin, citrus 100 million cell-10 mg capsule Take 1 capsule by mouth in the morning. Active Magnesium (7 sources)Start: 01-17-2024 End: 70-43-9978pkfx 1 tablet by mouth once dailymagnesium 200 MG tablet Indications: Missed menses Take 1 tablet (200 mg) by mouth Daily 90 tablet 2 01/17/2024 01/16/2025 ActiveStart: 03-09-2023 End: 66-91-5332frzv 1 tablet by mouth in the morningmagnesium 200 MG tablet Indications: Missed menses Take 1 tablet (200 mg) by mouth in the morning. 30 tablet 11 03/09/2023 03/08/2024 Active End: 59-67-2182tgpdrnxeb 200 mg tablet Take by mouth. 0 05/14/2023 Discontinued (Alternate therapy)magnesium 200 mg tablet Take by mouth. 0 Activemagnesium oxide 400 mg oral tablet (20 sources)Start: 81-65-1524obkl 1 tablet by mouth in the morningmagnesium oxide (MAGOX) 400 mg tablet Indications: 19 weeks gestation of , headache in second trimester Take 1 tablet by mouth in the morning and 1 tablet before bedtime 30 tablet2 06/22/2023 ActiveStart: 08-13-4153gzia 1 tablet by mouth in the morning, then take 1 tablet by mouth at bedtimemagnesium oxide (MAGOX) 400 mg tablet Indications: 19 weeks gestation of , headache in second trimester Take 1 tablet (400 mg total) by mouth in the morning and 1 tablet (400 mg total) before bedtime. 30 tablet 1 05/14/2023 Waffwh99 hr metFORMIN hydrochloride 500 mg extended release oral tablet (20 sources)BiguanideStart: 02-27-2024 End: 84-74-8255zopb 1 tablet by mouth every twenty-four hours at mealtime metFORMIN XR (Glucophage-XR) 500 MG 24 hr tablet Indications: Advised about management of weight Take 1 tablet (500 mg) by mouth in the evening. Take with meals Do not crush, chew, or split. 30 tablet 11 02/27/2024 02/26/2025 Active omeprazole 20 mg delayed release oral capsule (20 sources)Proton Pump InhibitorStart: 03-09-2023 End: 03-68-9109nmly 1 capsule by mouth in the morning, then take 1 capsule by mouth before mealtimeomeprazole (PriLOSEC) 20 mg capsule Take 1 capsule (20 mg total) by mouth in the morning and 1 capsule (20 mg total) in the evening. Take before meals. 60 capsule 11 06/24/2024 Active End: 74-61-7857hnqu 1 tablet by mouth once dailyomeprazole (PriLOSEC OTC) 20 mg EC tablet Indications: gastroesophageal reflux disease Take 1 tablet (20 mg total) by mouth nightly Indications: gastroesophageal reflux disease. 06/16/2024 Discontinued (Duplicate Listing) 28 mg iron- 800 mcg tablet (20 sources)Start: 96-99-6582TRCQOXSU 28 mg iron- 800 mcg tablet 06/13/2024 ActivePRENATAL PLUS, CALCIUM CARB, 27 mg iron- 1 mg tablet (20 sources)Start: 88-92-5158ipad 1 tablet by mouth in the morningPRENATAL PLUS, CALCIUM CARB, 27 mg iron- 1 mg tablet Indications: Take 1 tablet by mouth in the morning. Indications: a patient who is producing milk and . 01/30/2023 ActiveStart: 25-72-3850MTOWSSZH PLUS, CALCIUM CARB, 27 mg iron- 1 mg tablet 01/30/2023 ActiveStart: 34-62-0671WJRVNKCO PLUS, CALCIUM CARB, 27 mg iron- 1 mg tabletPrenatal Vit-Fe Fumarate-FA ( Vitamins) 28- 0.8 MG tablet (9 sources)Start: 08-20-2023 End: 80-44-7756jkpi 1 tablet by mouth once dailyPrenatal Vit-Fe Fumarate-FA ( Vitamins) 28-0.8 MG tablet Indications: care in first trimester Take 1 tablet by mouth Daily 90 tablet 2 08/20/2023 08/19/2024 Active Start: 03-15-2023 End: 09-94-7852bkgn 1 tablet by mouth in the morningPrenatal Vit-Fe Fumarate-FA ( Vitamins) 28-0.8 MG tablet Indications: care in first trimester Take 1 tablet by mouth in the morning. 30 tablet 11 03/15/2023 03/14/2024 ActiveSLYND 4 mg (28) tablet (20 sources)Start: 63-03-7751lvcn 1 tablet by mouth in the morningSLYND 4 mg (28) tablet Take 4 mg by mouth in the morning. 05/13/2024 ActivetraMADol hydrochloride 50 mg oral tablet (2 sources)Opioid AgonistStart: 06-06-2024 End: 44-61-5080cnih 1 tablet by mouth every six hours as needed for paintraMADoL (ULTRAM) 50 mg tablet Indications: Postoperative pain , Carpal tunnel syndrome of right wrist Take 1 tablet (50 mg total) by mouth every 6 (six) hours as needed for pain for up to 3 days. 10tablet 06/06/2024 06/09/2024 Active Completed/Discontinued Medications MedicationDrug Class(es)DatesSig (Normalized)Sig (Original)acetaminophen 325 mg / oxyCODONE hydrochloride 5 mg oral tablet (10 sources)Opioid AgonistStart: 06-02-2024 End: 45-71-9316ujkPXSBOM-acetaminophen (PERCOCET) 5-325 mg per tablet Indications: Postoperative pain Take 1 tablet by mouth every 6 (six) hours as needed for pain. Max Daily Amount: 4 tablets 10 tablet 06/02/2024 06/16/2024 Discontinued (Therapy completed)betamethasone 3 mg/ml / betamethasone acetate 3 mg/ml injectable suspension (1 source)CorticosteroidStart: 03-06-2024 End: mg, intra-articular, One-Time Injection, Starting on Kimberlee 03/06/24 at 0934, For 1 dosecholecalciferol 1.25 mg oral capsule (15 sources)Vitamin DStart: 07-07-2024 End: 29-22-3120wotj 1 capsule by mouth every week, then take 1 capsule by mouth once dailycholecalciferol (VITAMIN D3) 50,000 units capsule Take 1 capsule (50,000 Units total) by mouth oncea week. Once this script is done get an over the counter Vit D3 2,000 unit taking one daily. 7 capsule 07/07/2024 12/02/2024 Discontinued (Therapy completed)docusate sodium 100 mg oral capsule (4 sources)Start: 03-31-2024 End: 45-04-8279rfhi 1 capsule by mouth twice dailydocusate sodium (COLACE) 100 mg capsule TAKE 1 CAPSULE BY MOUTH 2 TIMES A DAY 03/31/2024 05/09/2024 Discontinued (Therapy completed)escitalopram 10 mg oral tablet (20 sources)Serotonin Reuptake InhibitorStart: 06-16-2024 End: 71-76-2271cnux 1 tablet by mouth in the morningescitalopram (LEXAPRO) 20 mg tablet Take 1 tablet (20 mg total) by mouth in the morning. 30 tablet 06/16/2024 08/09/2024 Discontinued (Dose adjustment)Start: 06-16-2024 End: 30-77-6075zhad 1 tablet by mouth in the morningescitalopram (LEXAPRO) 10 mg tablet Indications: Anxiety disorder, unspecified type , Recurrent major depressive disorder, in partial remission Take 1 tablet (10 mg total) by mouth in the morning. 30tablet 2 08/09/2024 12/02/2024 Discontinued (Therapy completed)Start: 05-10-2024 End: 70-04-1661frdx 1.5 tablets by mouth in the morningescitalopram (LEXAPRO) 20 mg tablet Indications: Anxiety disorder, unspecified type , Recurrent major depressive disorder, in partial remission Take 1.5 tablets (30 mg total) by mouth in the morning for 30 days. 45 tablet 1 06/07/2024 07/07/2024 ActiveStart: 05-07-2023 End: 66-84-1809evsp 1 tablet by mouth once dailyescitalopram (Lexapro) 20 MG tablet Indications: Anxiety, generalized (CMS/HCC) Take 1 tablet (20 mg) by mouth Daily Patient will need to have an appointment prior to needing more refills. 90 tablet 03/10/2024 06/08/2024 Activemupirocin 0.02 mg/mg topical ointment (20 sources)RNA Synthetase Inhibitor AntibacterialStart: 12-24-2023 End: 28-85-2289vwrleuzxq (BACTROBAN) 2 % ointment Apply 1 Application topically 3 (three) times a day. 15 g 1 12/24/2023 06/16/2024 Discontinued (Therapy completed)norethindrone 0.35 mg oral tablet (14 sources)Start: 11-06-2023 End: 29-35-4894huvb 1 tablet by mouth once daily, then take 1 tablet by mouth once dailynorethindrone (Micronor) 0.35 MG tablet Indications: Encounter for contraceptive management, unspecified type Take 1 tablet (0.35 mg) by mouth Daily Take 1 tablet by mouth daily 28 tablet 11 11/06/2023 01/21/2024 Discontinued (Other)ondansetron 4 mg disintegrating oral tablet (4 sources)Serotonin-3 Receptor Antagonist End: 41-60-8481kith 1 tablet by mouth every eight hours as needed for nausea and vomitingondansetron ODT (ZOFRAN ODT) 4 mg disintegrating tablet Dissolve 1 tablet (4 mg total) on tongue every 8 (eight) hours as needed for nausea or vomiting. 08/20/2023 Discontinued (Therapy completed)oseltamivir 75 mg oral capsule (2 sources)Neuraminidase InhibitorStart: 05-01-2024 End: 84-17-3342fcll 1 capsule by mouth in the morningoseltamivir (TAMIFLU) 75 mg capsule Take 1 capsule (75 mg total) by mouth in the morning. 10 capsule 05/01/2024 05/09/2024 Discontinued (Therapy completed)PNV cmb#95-ferrous fumarate-FA 28 mg iron- 800 mcg tablet (13 sources)Start: 08-15-2023 End: 22-77-0860YCL cmb#95-ferrous fumarate-FA 28 mg iron- 800 mcg tablet 08/15/2023 10/22/2023 Discontinued (Therapy completed)Start: 71-66-0735IDQ cmb#95-ferrous fumarate-FA 28 mg iron- 800 mcg tablet 08/15/2023 Active progesterone (FIRST-PROGESTERONE VGS) 200 mg suppository (4 sources)Start: 02-05-2023 End: 29-96-2203cduidsqxjcjc (FIRST-PROGESTERONE VGS) 200 mg suppository Insert 1 suppository (200 mg total) into the vagina. 02/05/2023 08/20/2023 Discontinued (Therapy completed)Start: 78-75-4844trwfajitoxcf (FIRST-PROGESTERONE VGS) 200 mg suppository Insert 1 suppository (200 mg total) into the vagina. 0 02/05/2023 Activesertraline 50 mg oral tablet (6 sources)Serotonin Reuptake InhibitorStart: 03-09-2023 End: 49-69-4946rvrp 0.5 tablet by mouth in the morningsertraline (ZOLOFT) 50 mg tablet Take 0.5 tablets (25 mg total) by mouth in the morning. 03/09/2023 08/20/2023 Discontinued (Therapy completed) Problems Active Problems Problem ClassificationProblemDateDocumented DateEpisodic/Chronic Administrative/social admission (4 sources)Patient encounter status; Translations: [Encounter for other general counseling and advice on contraception]11-75-6753FypbnabyGnzcszc disorders (20 sources)Mixed anxiety and depressive disorder; Translations: [Other specified anxiety disorders]Onset: 342029-31-7515HlguyqzXceajppgsf disorders (2 sources)Gastro-esophageal reflux disease without esophagitis; Translations: [Gastroesophageal reflux disease]Onset: 808430-55-6762GmaogqyNjpcpvbz of lower limb (7 sources)Closed fracture of left ankle; Translations: [Other fracture of left lower leg, initial encounter for closed fracture]Onset: 253314-30-8075 EpisodicGenitourinary symptoms and ill-defined conditions (20 sources)Mixed urinary incontinence; Translations: [Mixed incontinence]Onset: 542949-26-6303HysglmcPvccrezs; including migraine (9 sources)Migraine without aura, not refractory ; Translations: [Chronic migraine without aura, not intractable, without status migrainosus]Onset: 992807-17-2506PhdawcuQqcitnnih (2 sources)Nonalcoholic steatohepatitis; Translations: [Nonalcoholic steatohepatitis (REHMAN)]06-48-4204QggvvyzPedudzodfnafy and screening for infectious disease (3 sources)Contact with and (suspected) exposure to infections with a predominantly sexual mode of transmission; Translations: [Encounter for screening for human papillomavirus (HPV)]Onset: 741067-76-0334Fpfpuimi Influenza (1 source)InfluenzaOnset: 10-45-7671Gpxujkt and fatigue (1 source)Fatigue; Translations: [Chronic fatigue, unspecified]91-49-1353Avbmcym Menstrual disorders (6 sources)Irregular menstruation, unspecified; Translations: [Missed period] Onset: 93-72-6971LnkezngGsps disorders (7 sources)Recurrent major depression in partial remission; Translations: [Major depressive disorder, recurrent, in partial remission]Onset: 05-10-2024 68-39-9368EunrywvJidzcedqsng deficiencies (2 sources)Vitamin D deficiency; Translations: [Vitamin D deficiency, unspecified]Onset: 016517-50-8904KpqvvquFR-ityyvuw trauma to perineum and vulva (1 source)Fourth degree perineal laceration during delivery; Translations: [FOURTH DEG PERINEAL LAC DUR DELIV]Onset: 07-23-5136AbfzjduhEzpax aftercare (1 source)Other emt intermediate (current) drug therapy; Translations: [OTH BINDERY SUPERVISOR CURRENT DRUG THERAPY]Onset: 02-25-2279QpbnpmphVlzbx aftercare (2 sources)Surgical follow-up; Translations: [Encounter for follow-up examination after completed treatment for conditions other than malignant neoplasm]45-81-8487LmceqdheIyigy aftercare (1 source)Postoperative visit; Translations: [Encounter for other specified surgical aftercare]40-89-2318WhuiavpsApskg complications of ; puerperium affecting management of mother (3 sources)Streptococcus B carrier state complicating childbirth; Translations: [STREP B MARIEE STATE COMP CHILDBIRTH]Onset: 64-70-8798XdrxnnjgIbusk complications of ; puerperium affecting management of mother (1 source)Diseases of the digestive system complicating childbirth; Translations: [DZ DIGESTIVE SYSTEM COMP CHILDBIRTH]Onset: 82-69-3655Ccdkhwmj Other complications of (4 sources)Maternal obesity complicating , childbirth and the puerperium, antepartum; Translations: [Obesity complicating , second trimester]16-61-3168OdslpwmGzjtt complications of (4 sources)Uterine size-date discrepancy, third trimester; Translations: [UTERINE SZ-DATE DISCREPANCY 3RD TRI]Onset: 84-19-1487OincigqdKdiha complications of (4 sources)Other viral diseases complicating , third trimester; Translations: [OTH VIRAL DZ COMP PREGTHIRD TRI]Onset: 13-60-9949BjwvarprDtxpw connective tissue disease (3 sources)Pain in right foot; Translations: [Pain in right foot]04-01-2024 EpisodicOther connective tissue disease (6 sources)Pain in left foot; Translations: [Pain in left foot]04-01-2024 EpisodicOther female genital disorders (4 sources)Mitteradhachmerrina; Translations: [MITTELSCHMERZ]Onset: 52-67-4163Cvpjzbx Other liver diseases (6 sources)Steatosis of liver; Translations: [Fatty (change of) liver, not elsewhere classified]99-87-7945RmpklkwHnjjt liver diseases (1 source)Fatty (change of) liver, not elsewhere classified; Translations: [Fatty (change of) liver, not elsewhere classified]Onset: 48-23-1981IvfigimKsrhw liver diseases (2 sources)Liver enzymes abnormal; Translations: [Abnormal levels of other serum enzymes]08-47-0877TwggptinXerqn nervous system disorders (20 sources)Carpal tunnel syndrome; Translations: [Carpal tunnel syndrome, unspecified upper limb]Onset: 099901-85-7834DzwgjuhXxbjy nervous system disorders (5 sources)Carpal tunnel syndrome of right wrist; Translations: [Carpal tunnel syndrome, right upper limb]08-17-6465XwhtnndMlqmb nervous system disorders (1 source)Bilateral carpal tunnel syndrome; Translations: [Carpal tunnel syndrome, bilateral upper limbs]19-92-2770NkqrvgqZtvrr nervous system disorders (20 sources)Chronic low back pain; Translations: [Other chronic pain]Onset: 909078-66-2568XpfxszrZvbwn nervous system disorders (2 sources)Lesion of ulnar nerve, right upper limb; Translations: [Lesion of ulnar nerve]Onset: 070400-77-7109NqmdrqsTaxxs nervous system disorders (1 source)Carpal tunnel syndrome, right upper limb; Translations: [Carpal tunnel syndrome, right upper limb]Onset: 49-62-3673IwanvinNzxpz nervous system disorders (1 source)Carpal tunnel syndrome, bilateral upper limbs; Translations: [Carpal tunnel syndrome, bilateral upper limbs]Onset: 82-27-4438XohhyvpCqsrl nervous system disorders (2 sources)Postoperative pain ; Translations: [Other acute postprocedural pain] 11-36-8995PkllxmncYexqs nervous system disorders (1 source)Ataxia; Translations: [Ataxia, unspecified]82-12-3670LdqyrpxrRqboj nutritional; endocrine; and metabolic disorders (1 source)Severe obesity; Translations: [Class 3 severe obesity due to excess calories with serious comorbidity and body mass index (BMI) of 40.0 to 44.9 in adult ([facility])]06-72-0845AxysjglFpvzz nutritional; endocrine; and metabolic disorders (2 sources)Body mass index 40+ - severely obese; Translations: [Body mass index (BMI) 40.0-44.9, adult]89-97-1475SjaopbjYfkbm nutritional; endocrine; and metabolic disorders (1 source)Body mass index 30+ - obesity; Translations: [Body mass index (BMI) 37.0-37.9, adult]65-02-7514IwrskwmLcjqf skin disorders (6 sources)Ingrowing nail; Translations: [Ingrowing nail]85-49-0084HeysxaakYroav upper respiratory disease (2 sources)Pain in throatOnset: 11-06-2378FqdczuufPeldb upper respiratory infections (8 sources)Sore throat symptom; Translations: [Acute pharyngitis, unspecified] Onset: 494652-07-4951AhwjdlryGvezscah codes; unclassified (20 sources)Obstructive sleep apnea syndrome; Translations: [Obstructive sleep apnea (adult) (pediatric)]Onset: 242467-29-5589SedpulkNbxtxfsg codes; unclassified (3 sources)Finding related to sleep; Translations: [Sleep apnea, unspecified] 86-19-0892RrbywsyZyiyohhm codes; unclassified (2 sources)Obstructive sleep apnea (adult) (pediatric); Translations: [Obstructive sleep apnea (adult) (pediatric)]Onset: 72-79-4811DgmxzrdWbylefxr codes; unclassified (1 source)39 weeks gestation of ; Translations: [39 WEEKS GESTATION OF ]Onset: 48-97-5753UtvhggawLifsopqq codes; unclassified (1 source)32 weeks gestation of ; Translations: [32 WEEKS GESTATION OF ]Onset: 84-06-8524HadeptvuRjticldx codes; unclassified (1 source)31 weeks gestation of ; Translations: [31 WEEKS GESTATION OF ]Onset: 37-46-3351DavjknisVdxfzunn codes; unclassified (1 source)Family history of breast cancer; Translations: [Family history of malignant neoplasm of breast]05-05-9964TbrizueoQmkuaegll and history of mental health and substance abuse codes (1 source)Personal history of nicotine dependence; Translations: [PERSONAL HISTORY OF NICOTINE DEPEND]Onset: 48-76-5287FpvfaobiYmacporhtmc; intervertebral disc disorders; other back problems (20 sources)Lumbar spondylosis; Translations: [Spondylosis without myelopathy or radiculopathy, lumbar region]Onset: 958008-85-2154MnbnolaWjmovyh disorders (2 sources)Hypothyroidism; Translations: [Hypothyroidism, unspecified]Onset: 673436-35-8124UkdsfjyCzdxeckstcce (7 sources)OB RemindersOnset: 617158-19-5106Xwzqercasvzh (2 sources)Closed fracture of left biqri83-70-7025Jddotvjlwqke (3 sources)Perineal pain; Translations: [Perineal pain]Onset: 01-16-2024 06-09-5423Mwsadywszppw (1 source)Sprains/StrainsOnset: 07-55-0578Odehzqadybsh (1 source)Encounter for screening for COVID-19; Translations: [Encounter for screening for COVID-19]Onset: 93-98-7432Fhbojbxynsiv (3 sources)New PatientOnset: 21-42-2303Vkcnfgzeqdgw (3 sources)Post-opOnset: 81-64-1405Dravvozshrxb (1 source)Sinus ProblemOnset: 06-67-7344Ycghzgjsclog (1 source)Acute cough; Translations: [Acute cough]Onset: 29-65-2570Cgpbpyyjkbtz (1 source)Genetic EvaluationOnset: 03-17-3155Ysdbmwtlssor (1 source)Weight GainOnset: 04-32-0497Xkrdzmkcnmej (1 source)Eye ExamOnset: 12-45-5787Wupgwrdbzdkj (1 source)UltrasoundOnset: 13-61-2782Drdnfvxxbixp (1 source)VENTRAL AND UMBILICAL HERNIAOnset: 78-67-8388Qhbmdadluyru (1 source)Nail ProblemOnset: 47-90-4173Kthikwuhvdof (1 source)ProcedureOnset: 19-70-0161Waogbtykgutd (1 source)Ingrown ToenailOnset: 54-11-3055Rlxwu infection (1 source)COVID-19; Translations: [COVID-19]Onset: 06-05-2022 Past or Other Problems Problem ClassificationProblemDateDocumented DateEpisodic/ChronicAbdominal hernia (13 sources)Incisional hernia; Translations: [Incisional hernia without obstruction or gangrene]Onset: 769622-11-0569AwkwaewmBhplmaxqz pain (20 sources)Perineal pain; Translations: [Pelvic and perineal pain]Onset: 853562-63-4453HhsvtfetYylghy (20 sources)Asthma; Translations: [Unspecified asthma, uncomplicated]Onset: 02-13-2005 Resolved: 221615-21-9736IbjwifmBsrwnjubj and vision defects (10 sources)Blurring of visual image; Translations: [Other visual disturbances] Onset: 119900-88-1116QfyoyyefWykkamimekrvq of surgical procedures or medical care (1 source)Infection following a procedure, superficial incisional surgical site, initial encounter; Translations: [Infection following a procedure, superficial incisional surgical site, initial encounter]Onset: 32-42-7700PpgohvnjJyomyggwjx associated with dizziness or vertigo (7 sources)Dizziness; Translations: [Dizziness and giddiness]Onset: 05-09-2024 86-69-7297NimwzmdtVsohitpbrz and other anemia (1 source)Iron deficiency anemia; Translations: [Iron deficiency anemia, unspecified]84-05-4402WecxyanwYfrsevkx mellitus without complication (2 sources)Impaired fasting glycemia; Translations: [Impaired fasting glucose] Onset: 258939-22-0053OjnnzqjdXqodfsvuayigi symptoms and ill-defined conditions (2 sources)Increased frequency of urination; Translations: [Frequency of micturition]32-01-7689QvlkajwqXadmprd and fatigue (1 source)Fatigue; Translations: [Other fatigue]48-86-2281OrcdvhfeBhmd disorders (20 sources)Mood disordersOnset: 03-15-2023 Resolved: 853402-59-3458Srkdgjz (7 sources)Onychomycosis; Translations: [Tinea unguium]Onset: 06-04-2023 19-13-8375RxkcdmblMifec aftercare (1 source)Encounter for other specified surgical aftercare; Translations: [Encounter for other specified surgical aftercare]Onset: 47-36-4156XntvhxaaSyjgt complications of (7 sources)Obesity; Translations: [Obesity complicating , unspecified trimester]Onset: 09-12-2023 Resolved: 951751-53-6462IubovhfVepxz complications of (1 source)Maternal care for other abnormalities of pelvic organs, first trimester; Translations: [MAT CARE OTH ABN PELV ORGAN 1ST TRI]Onset: 01-02-2022 EpisodicOther complications of (20 sources)History of fourth degree perineal laceration; Translations: [Supervision of with other poor reproductive or obstetric history, unspecified trimester]Onset: 05-14-2023 Resolved: 526793-88-7807JvhxphtrRtell complications of (7 sources)High risk ; Translations: [Supervision of high risk , unspecified, third trimester]Onset: 09-12-2023 Resolved: 299428-68-7491MrtjyutkVnikj complications of (1 source)Depressive disorder in mother complicating ; Translations: [Other mental disorders complicating , unspecified trimester]05-14-2023 EpisodicOther complications of (1 source)Anxiety in ; Translations: [Other mental disorders complicating , unspecified trimester]82-72-7240RhcatomeDghpu complications of (2 sources)Headache; Translations: [Other specified related conditions, second trimester]Onset: 099681-62-5294UslotizlJxope connective tissue disease (1 source)Pain in left hand; Translations: [Pain in left hand]Onset: 03-06-2024 EpisodicOther connective tissue disease (1 source)Pain in right hand; Translations: [Pain in right hand]Onset: 92-02-1887OwxndjgrWavhp connective tissue disease (1 source)Pain in right foot; Translations: [Pain in right foot]Onset: 95-72-1424RkkjbzlsWvwii connective tissue disease (1 source)Pain in left foot; Translations: [Pain in left foot]Onset: 02-22-2024 EpisodicOther female genital disorders (5 sources)Other specified noninflammatory disorders of vagina; Translations: [OTH SPEC NONINFLAMMATORY D/O VAGINA]Onset: 37-29-2679AffmbutvWinug gastrointestinal disorders (2 sources)Fecal incontinence with fecal urgency; Translations: [Full incontinence of feces]38-45-2305ZvwsxkayUmise liver diseases (1 source)Abnormal levels of other serum enzymes; Translations: [Abnormal levels of other serum enzymes]Onset: 14-83-9605MgwybxzyFbkbk lower respiratory disease (1 source)Snoring; Translations: [Snoring]83-75-2795SwjtcsylAqoja nervous system disorders (2 sources)Ataxia, unspecified; Translations: [Ataxia, unspecified]Onset: 50-62-5977NjjqdzzxFgqoh nervous system disorders (1 source)NumbnessOnset: 39-61-8025YhgpryazUrjin nervous system disorders (1 source)Other acute postprocedural pain; Translations: [Other acute postprocedural pain]Onset: 89-71-3823FkhgtvrsFljlj and delivery including normal (20 sources)Encounter for routine follow-up; Translations: [Single live ]Onset: 01-17-2022 Resolved: 41-64-8593GngxvtnbIuhsm screening for suspected conditions (not mental disorders or infectious disease) (17 sources)Encounter for screening for malignant neoplasm of cervix; Translations: [Encounter for screening, unspecified]Onset: 11-09-2021 EpisodicOther skin disorders (1 source)Ingrowing nail; Translations: [Ingrowing nail]Onset: 02-22-2024 EpisodicOvarian cyst (1 source)Other ovarian cyst, right side; Translations: [OTHER OVARIAN CYST RIGHT SIDE]Onset: 75-91-3596HoabfafsLwvrdglrb by nonmedicinal substances (20 sources)Toxic effect of other specified gases, fumes and vapors, accidental (unintentional), initial encounter; Translations: [Toxic effect of other specified gases, fumes, or vapors]Onset: 140357-95-2192LzztmingAkgqjttk codes; unclassified (1 source)8 weeks gestation of ; Translations: [8 WEEKS GESTATION OF ]Onset: 72-20-3732TsyxobniWzawomta codes; unclassified (1 source)Gestation period, 19 weeks; Translations: [19 weeks gestation of ]97-49-0470IsqljymrVdbchikk codes; unclassified (1 source)PainOnset: 55-63-6904VoydkzclMhsbhdbh codes; unclassified (1 source)Family history of malignant neoplasm of breast; Translations: [Family history of malignant neoplasmof breast]Onset: 81-96-5520OmoouruyXybsombbfxw; intervertebral disc disorders; other back problems (20 sources)Disorder of sacrum; Translations: [Sacrococcygeal disorders, not elsewhere classified]Onset: 997113-60-4780AtzgreqeFlxplwe (2 sources)Near syncope; Translations: [Syncope and collapse]Onset: 06-13-2024 01-21-9411TsonwvryRerangwryest (1 source)Cubital tunnel syndrome on abfmn22-31-7733Yaewonllwhny (1 source)Patient encounter oxyngs17-24-8757Pvetyxoivtsp (1 source)Breast cancer screening, high risk fvdjqes05-41-2244Hzapbnplqvsp (1 source)Finding related to bvwwy57-25-1250 Results Test NameValueInterpretationReference RangeFacilityXR Ankle - left 3 Viewson 35-11-2112Blux xrays obtained :01/02/2025 Standing AP, lateral and mortise view of the left ankle was obtained today. This shows good healing of the patient's lateral malleolus fracture.MANUALLY TRANSCRIBED RESULTSChillicothe HospitalRadiology Study observation (narrative)[facility]illicothe HospitalPOCT , urineon 12-02-2024 Beta HCG ( test) Ql (U)NegativeChillicothe HospitalInternal Septic Pump Truck Driver Check Completed and PassedYeCleveland Clinic Mentor HospitalInterpretation and review of laboratory resultsNormalProMayo Clinic Health System– Northland System XR ANKLE LT MIN 3 VWSon 91-86-7105HS ANKLE LT MIN 3 VWSXR ANKLE LT MIN 3 VWS History: Pain. Acute pain twisting injury Study: Left Ankle Three view study. Comparison: None Impression: * Nondisplaced versus incomplete transversely oriented fracture of the lateral malleolus is appreciated. There is some sclerosis indicating subacute in age. No concerning soft tissue swelling. No syndesmotic widening. Consider follow-up with orthopedics.. Finalized by Yadi Sanchez MD on 12/02/2024 11:43 [facility] PPGXR Ankle - left 3 Viewson 50-43-2144Wclybgk: Pain. Acute pain twisting injury Study: Left Ankle Three view study. Comparison: None Impression: * Nondisplaced versus incomplete transversely oriented fracture of the lateral malleolus is appreciated. There is some sclerosis indicating subacute in age. No concerning soft tissue swelling. No syndesmotic widening. Consider follow-up with orthopedics.. Finalized by Yadi Sanchez MD on 12/02/2024 11:43 [facility]ERY[facility] Sanchez MD - 12/02/2024 History: Pain. Acute pain twisting injury Study: Left Ankle Three view study. Comparison: None Impression: * Nondisplaced versus incomplete transversely oriented fracture of the lateral malleolus is appreciated. There is some sclerosis indicating subacute in age. No concerning soft tissue swelling. No syndesmotic widening. Consider follow-up with orthopedics.. Finalized by Yadi Sanchez MD on 12/02/2024 11:43 AM [facility] HospitalRadiology Study observation (narrative)[facility] SystemXR Ankle - left 3 ViewsOrdered By: Yadi Sanchez on 22-81-1513UuwJurszr Health System Work Phone: POCT Xpert, Xpress CoV-2, FLU, RSV Plus (Cepheid) Ordered By: Lorie Burns on 63-54-0589Rtolmnga Poct Influenza A Cepheid NegativeNegativeTuscarawas Hospital SystemExternal Poct Influenza B CepheidNegative NegativeChillicothe HospitalExternal Poct Rsv CepheidNegativeNegative [facility] SystemInterpretation and review of laboratory resultsNormal [facility] Health North HospitalARS-CoV-2 (COVID-19) RNA SARAH+probe Ql (Unsp spec) NegativeNegativeLehigh Valley Hospital - MuhlenbergPOCT Xpert, Xpress Strep A (Cepheid)on 54-93-4144Tfsxcjvw Strep A CepheidDetectedAbnormalNot DetectedChillicothe HospitalInterpretation and review of laboratory results AbnormalMarshfield Clinic Hospital SystemPOCT RAPID STREP Aon 10-25-2024S. pyogenes Ag IA Ql (Unsp spec)PositiveAbnormalNegativeDoctors HospitalComment on above:Performed By: #### 2106-3 #### [facility] ([id number]) [address] [place], [place] [address]RESP PATHOGENS PANEL/TGPS-KIU-0hw 97-02-2454FTHH-CoV-2 (COVID- 19) RNA SARAH+probe Ql (Resp)SARS COV 2 BY PCR Not Detected ADENOVIRUS Not Detected CORONAVIRUS 229E Not Detected CORONAVIRUS HKU1 Not Detected CORONAVIRUS NL63 Not Detected CORONAVIRUS OC43 Not Detected HUMAN METAPNEUVIRUS Not Detected RHINO/ENTEROVIRUS Not Detected INFLUENZA A Not Detected INFLUENZA B Not Detected PARAINFLUENZA 1 Not Detected PARAINFLUENZA 2 Not Detected PARAINFLUENZA 3 Not Detected PARAINFLUENZA 4 Not Detected RESP SYNCYTIAL VIRUS Not Detected BORD PARAPERTUSSIS Not Detected BORDETELLA PERTUSSIS Not Detected CHLAM.PNEUMONIAE Not Detected MYCOPLASMA PNEUMONIAE Not DetectedNormalNot DetectedProOhiohealth Doctors HospitalComment on above:Order Comment: The [employer] Respiratory Panel 2.1 (RP2.1) is a multiplexed nucleic acid test intended for the simultaneous qualitative detection and differentiation of nucleic acid from multiple viraland bacterial respiratory organisms, including nucleic acid from Severe Acute Respiratory Syndrome Coronavirus 2 (SARS-CoV-2), in nasopharyngeal swabs obtained from individuals suspected of COVID-19 by their healthcare provider. Testing is limited to laboratories certified under the Clinical Laboratory Improvement Amendments of 1988 (CLIA), to perform high complexity or moderate complexity tests.SARS-CoV-2 RNA and nucleic acids from the other respiratory viral and bacterial organisms identifiedby this test are generally detectable in nasopharyngeal [...] information is necessary to determine patient infection status.Negative results in the setting of a respiratory [...] epidemiological information. Negative results for other organisms identifiedby the test may require additional laboratory testing when evaluating a patient with possible respiratory tract infection.Performed By: #### REPPCV ####[facility] ([facility])[address] [address] VIRXR CHEST 2 VWSon 08-27-0981NN CHEST 2 VWSXR CHEST 2 VWS PA and lateral chest, 2 views, dated 10/25/2024 at 8:28 PM INDICATION: Cough, flulike symptoms. FINDINGS: No comparisons available. The lungs are clear. No airspace disease or edema. No effusions. The heart and mediastinal structures are within normal limits. IMPRESSION: 1. No acute cardiopulmonary abnormality seen. Finalized by Phil Hall MD on 10/25/2024 9:15 PMNormalProMedica University Hospitals Ahuja Medical CenterMAMM SCREENING BILATERAL W CADon 92-44-7976XNTT SCREENING BILATERAL W [facility] SCREENING BILATERAL W CAD ARABELLA BALL MARY 1990 [id number] EXAM: MAMM SCREENING BILATERAL W CAD, 09/20/2024 9:42 AM CLINICAL INDICATIONS: Screening, Family history of malignant neoplasm of breast COMPARISON: No prior studies currently available for comparison. TECHNIQUE: Bilateral digital tomosynthesis MLO and CC views of the breasts were obtained, with creation of synthetic 2D views. Computer aided detection was utilized. FINDINGS: The breasts are heterogeneously dense, which may obscure small masses. There are no suspicious masses, calcifications, or areas of architectural distortion. Lactational changes. IMPRESSION: No mammographic evidence of malignancy. BI-RADS: BI-RADS 1 - Negative RECOMMENDATION: Routine screening mammogram in 1 year. Given personal elevated risk of malignancy (see below), MRI may be considered for supplemental screening. This is recommended to be performed atalternating 6 month intervals with screening mammography. RISK ASSESSMENT: TC Lifetime risk: 27.1%. The patient's reported personal and family medical history was used calculate their Tyrer-Cuzick lifetime risk of malignancy. Scores 20% or greater are considered high risk, and patient should consider supplemental screening with MRI per ACR guidelines. Patient may discuss this option with their healthcare provider. Additionally, this patient's reported personal and/or family history of cancer indicates they may benefit from a genetic counseling consultation and possible genetic testing. If patient has not already completed this evaluation, please consider placing a referral to [facility] via [employer] or . For questions regarding this, please call [phone]. The patient was offered information on genetic counseling at the time of exam. Finalized by Graciela Armijo MD on 09/24/2024 3:18 PM 1 c MAMM 1 YRNormalProOhiohealth Doctors HospitalFolate [Mass/Vol]on 69-51-4749NWTRB ACID >25.0Normal>5.8ProOhiohealth Doctors HospitalComment on above:Result Comment: NEW REFERENCE RANGEPerformed By: #### 2106-3 #### [facility] ([id number]) [address] [place] [address] 67630KRFYNPU PROFILEon 27-29-3964Mgwf T4 [Mass/Vol]0.85 ng/dLNormal 0.61-1.60ProOhiohealth Doctors HospitalComment on above:Performed By: #### 2106-3 #### [facility] ([id number]) [address] [place] [address] 34800AQC2.47 uIU/mLNormal0.49-4.67ProOhiohealth Doctors HospitalComment on above:Performed By: #### 2106-3 #### [facility] ([id number]) [address] [place] [address] 54772SKGDORU B12on 84-71-6234Iaodelwvy (Vitamin B12) [Mass/Vol]544 pg/zOTogkww627-292EeeOmsrks Pathak HospitalComment on above:Performed By: #### 2106-3 #### [facility] ([id number]) [address] [place] [address] 73818Dcdkfks D+Metabolites [Mass/Vol]on 29-29-7771QTEMGBJ D 25 HYD TOT23.7 ng/vDBam74-356NrpAqqucm Mesick HospitalComment on above:Result Comment: Vitamin D status 25 OH Vitamin D Deficiency <20 ng/mL Insufficiency 20-29 ng/mL Sufficiency 30-100 ng/mL Toxicity >100 ng/mL NOTE: A pediatric reference range has not been established by the emergency dept tech of this kit. The [place] [employer] recommends a Vitamin D level of = or >20ng/mL in infants and children.Performed By: #### 2106-3 #### [facility] ([id number]) [address] [place] [address] 71585HII ( test) Ql (U)on 16-81-3325Mcaw HCG ( test) Ql (U)NegativeNormalNEGProOhiohealth Doctors HospitalComment on above:Performed By: #### 2106-3 #### [facility] ([id number]) [address] [place] [address] 48906Aqaaqebd Pathologyon 06-14-0409Cizfvifm PathologyNormal Doctors HospitalComment on above:Result Comment: [facility] [address] [place] [address] Surgical Pathology Consultation ADDENDUM RI Patient Name:ARABELLA HERNANDEZ:1990 (Age: 33)Gender:FTaken:06/24/2024Reported:06/27/2024Physician(s):Phong Mcfarlane MD ([phone])Copy To: Rec. #:[id number]: # [id number] Final Pathologic Diagnosis 1. Gastric biopsy: Gastric mucosa with changes suggestive of chemical or reactive gastritis. No intestinal metaplasia or dysplasia. Immunohistochemistry for Helicobacter pylori organisms is pending; addendum to follow. 2. Esophageal distal biopsy: Hyperplastic squamous mucosa with changes suggestive of reflux. Gastric type mucosa with mild chronic inflammation, reactive changes and intestinal metaplasia. No dysplasia. 3. Gastric polyp; polypectomy: Gastric fundic gland polyp (2 fragments). Report Electronically Signed Out ramo/06/27/2024William Lucas MD Addendum ([facility]) Date Reported: 06/30/2024 In specimen part 1, immunohistochemistry (with appropriate controls) for Helicobacter pylori organisms is NEGATIVE. Electronically Signed Out William Lucas MD Interpretation [place] [address], License number: [id number]. Clinical History RUQ pain, R10.11. Gross Description 1. Received in formalin labeled MARY, gastric biopsy , are 4 huertas feathery tissue bits 0.2 cm - 0.5 cm. The specimen is filtered and submitted entirely in a single cassette. (1,ns,[id number], m7) SW 2. Received in formalin labeled MARY, esophageal distal biopsy , are 4 huertas feathery tissue bits 0.2 cm - 0.4 cm. The specimen is filtered and submitted entirely in a single cassette. (1,ns,A58-09527-5, m7) SW 3. Received in formalin labeled MARY, gastric polyp , is a 0.4 x 0.3 x 0.2 cm huertas smooth sessilepolyp with attached mucosa. The intact polyp is submitted entirely in a single cassette. (1,ns,U58-50019-9, m7) SW sxw/06/24/2024GR Specimen(s) Received 1: Gastric biopsy 2: Esophageal distal biopsy 3: Gastric polyp Fee Codes(s): 1; 00632, 04032 2; 95603 3; 37309Qimfahvfemsfb [Mass/Vol]on 18-34-0974OVXZYGRWIOWCK11 mg/hINpqeaq85-23 Doctors HospitalComment on above:Performed By: #### 4-4, SPE, 5196- 1, 02426-6 #### [facility] ([id number]) [address] [place] [address], [facility] [address] [place] [address] #### 24558-2 #### [facility] ([id number]) [address] [place] [address],HBV surface Ag IA Qlon 16-35-4000XDBTZQMWE B SURF AGNon-ReactiveNormal NRCTProMedica University Hospitals Ahuja Medical CenterComment on above:Result Comment: NEW TEST METHOD Performed By: #### 4-4, SPE, 5196-1, 54538-0 #### [facility] ([id number]) [address] [place] [address], [place] [address] #### 81824-4 #### [facility] ([id number]) [address] [place] [address],HCV Ab IA Qlon 85-11-2876NPLU HCV W/PCR REFLXNon-ReactiveNormalNRCT Doctors HospitalComment on above:Result Comment: NEW TEST METHOD NOTE If recent infection suspected, recommend repeat testing (>2 months). Fueffl-no-zottlu ratio is <1.00.Performed By: #### 2064-4, SPE, 5196-1, 25686-7 #### [facility] ([id number]) [address] [place] [address], [facility] [address] [place] [address] #### 89366-9 #### [facility] ([id number]) [address] [place] [address],SERUM PROTEIN ELECTROPHORESISon 51-22-6041Hhngeax [Mass/Vol]4.0 g/dL Normal3.4-5.3PCommunity Regional Medical Center HospitalComment on above:Performed By: #### 2063- 4, SPE, 5196-1, 18902-2 #### [facility] ([id number]) [address] [place] [address], [address] [place] [address] #### 02848-0 #### [facility] ([id number]) [address] [facility],ALPHA 1 GLOBULIN0.3 g/dLNormal0.1-0.4ProOhiohealth Doctors HospitalComment on above:Performed By: #### 2063-4, SPE, 5196-1, 97881-8 #### [facility] ([id number]) [address] [place] [address], [address] [place] [address] #### 28211-2 #### [facility] ([id number]) [address] [place] [address],ALPHA 2 GLOBULIN0.7 g/dLNormal0.4-1.1POhio State Harding HospitalComment on above:Performed By: #### 2063-4, SPE, 5196-1, 85346-1 #### [facility] ([id number]) [address] [place] [address], [address] [place], [place] [address] #### 85139-9 #### [facility] ([id number]) [address] [place], [place] [address]ia,BETA GLOBULIN0.9 g/dLNormal0.5-1.2PCommunity Regional Medical Center HospitalComment on above:Performed By: #### 2063-4, SPE, 6-1, 52250-0 #### [facility] ([id number]) [address] [place] [address], [address] [place] [address] #### 83496-1 #### [facility] ([id number]) [address] [facility],GAMMA GLOBULIN0.9 g/dLNormal0.5-1.6ProOhiohealth Doctors HospitalComment on above:Performed By: #### 2064-4, SPE, 5196-1, 76115-9 #### [facility] ([id number]) [address] [place] [address], [address] [place] [address] #### 75323-0 #### [facility] ([id number]) [address] [place] [address],PROT. ELECTROPHORESIS INTERPUnremarkable protein distribution, no monoclonal bands.NormalProOhiohealth Doctors HospitalComment on above:Performed By: #### 2064-4, SPE, 5196-1, 83159-4 #### [facility] ([id number]) [address] [place] [address], [address] [place] [address] #### 02733-6 #### [facility] ([id number]) [address] [place] [address],Protein [Mass/Vol]6.8 g/dLNormal6.0-8.0Pro[facility] Hospital on above:Performed By: #### 2064-4, SPE, 5196-1, 97868-2 #### [facility] ([id number]) [address] [place] [address], [address] [place] [address] #### 45260-2 #### [facility] ([id number]) [address] [place] [address],Smooth muscle Ab IF Ql (S)on 12-06-2984Ivjcyz Muscle AbNegativeNormal NegativeProCorey Hospital on above:Result Comment: NOTE Negative: No further testing will be performed ADDITIONAL INFORMATION This test was developed and its performance characteristics determined by [facility] in a manner consistent with CLIA requirements. This test has not been cleared or approved by the U.S. Food and Drug Administration. Test Performed by: [facility] - [address] [address] Chief Crew Scheduler: Breanna Sharma Ph.D.; CLIA# [id number] By: #### 2106-3 #### [facility] ([id number]) [address] [place] [address]PDC A1C (GLYCO-HGB)on 11-86-6400Uhudjtw [Mass/Vol]103 mg/dL NormalProOhiohealth Doctors HospitalComment on above:Performed By: #### HA1C #### [facility] ([id number]) [address] [place] [address], [address] [place], [place] [address]BwI2k (Bld) [Mass fraction]5.2 %Normal4.4-5.6ProOhiohealth Doctors HospitalComment on above:Result Comment: NOTE ADA Guidelines Result HgbA1c Normal : less than 5.7 % Prediabetes : 5.7 % to 6.4 % Diabetes : > 6.4 % Use with caution in patients with abnormal hemoglobin variants as the half-life of red blood cells and in vivo glycation rates are affected.Performed By: #### HA1C #### [facility] ([id number]) [address] [place] [address], [address] [place], [place] [address]BK ABDOMEN LMTDon 05-78-8378ND ABDOMEN LMTDUS ABDOMEN LMTD US ABDOMEN LMTD HISTORY: Abnormal LFTs, cirrhotic morphology on recent CT. COMPARISON: CT abdomen pelvis 02/06/2024 TECHNIQUE: Multiple real-time grayscale images were obtained in transverse and sagittal projectionsliver. Color Doppler was used. FINDINGS: Diffusely increased hepatic echogenicity compatible with hepatocellular disease. Although nonspecific, this is most likely secondary to steatosis. Within these limits, no focal hepatic lesion demonstrated. The hepatic contours appear smooth. Liver is 15.0 cm in length. No intrahepatic biliary dilatation. The common duct is not dilated and measures 0.2 cm. Main portal vein is patent with appropriate direction of flow. Main portal vein velocity 27.9 cm/s. Visualized portions of gallbladder show no shadowing stones. IMPRESSION: Although nonspecific, diffusely increased hepatic echogenicity is most likely secondary to hepatic steatosis. Approved by Res Angel sEparza MD on 05/26/2024 2:30 PM Tarik Lopez MD have personally reviewed the image(s) and agree with and/or edited the report Finalized by Tarik Henry MD on 05/26/2024 2:47 PMNormalProMedica Mesick HospitalIGP,APTIMA HPV,AGE GDLNon 70-56-9668MUW GDLN ACOG TESTINGNote.NOMS HealthcareComment on above:TESTS RESULT FLAG UNITS REF RANGE LAB Clinician Provided Cytology Information Source.............Cervix;Endocervix No. of containers..01 ThinPrep Vial Age Algo ACOG Alexandra... FLAG LEGEND: L-Low Normal,H-High Normal,LL-Alert Low,HH-Alert High <-Panic Low,>-Panic High,A-Abnormal,AA-Critical Abnormal Performed at: 01 =[facility] [place] [place] [address] Sushma Quiñonez MD, HPV APTIMANegativeNegativeNOMS HealthcareComment on above:This nucleic acid amplification test detects fourteen high- risk HPV types (16,18,31,33,35,39,45,51,52,56,58,59,66,68) without differentiation. Performed at: =G LabPartender48 Wang StreetRupert, [place] [id number] Chief Crew Scheduler: Sushma Quiñonez MD, Phone: [phone] Performed at: [facility] [employer] DevelopmentMurray-[facility] Cyto Histo [address] [employer] [place], [place] [id number] Chief Crew Scheduler: Bill Lynn MD, Phone: [phone] IGP, APTIMA HPV, RFX 16/18,45Note.NOMS HealthcareComment on above:TESTS RESULT FLAG UNITS REF RANGE LAB DIAGNOSIS: 02 NEGATIVE FOR INTRAEPITHELIAL LESION OR MALIGNANCY. Specimen adequacy: 02 Satisfactory for evaluation. Endocervical and/or squamous metaplastic cells (endocervical component) are present. Performed by: 02 Braden James, Dish Machine Operator ([facility]) . 02 Note: Note 03 The Pap smear is a screening test designed to aid in the detection of premalignant and malignant conditions of the uterine cervix. It is not a diagnostic procedure and should not be used as the sole means of detecting cervical cancer. Both false-positive and false-negative reports do occur. Test Methodology: Note 03 This liquid based ThinPrep(R) pap test was screened with the use of an image guided system. HPV Genotype Reflex Note 02 Criteria not met, HPV Genotype not performed. FLAG LEGEND: L-Low Normal,H-High Normal,LL-Alert Low,HH-Alert High <-Panic Low,>-Panic High,A-Abnormal,AA-Critical Abnormal Performed at: [facility] [address] [address] [place] [address] Bill Lynn MD, [address] [facility] [address] [address] Sushma Quiñonez MD, BRUSH-SPATULA CERVIX ENDOCERVIX CLINISYNCNONC HealthcareHCG ( test) Ql (U)on 76-29-3765Hlzquwsctndcbg and review of laboratory resultsNormalNONC HealthcarePreg Test, UrNegative NegativeNOSt. Lukes Des Peres Hospital HealthcareCOMPREHENSIVE METABOLIC PANELon 05-09-2024 Albumin [Mass/Vol]4.1 g/dLNormal3.2-5.3ProMedica Mesick HospitalComment on above:Performed By: #### CMP #### [facility] ([id number]) [address], [address] [place], [place] [address]SLM [Catalytic activity/Vol]108 U/FMzpvxx21-362AvzDjxbmb [place] HospitalComment on above:Performed By: #### CMP #### [facility] ([id number]) [address], [address] [place], [place] [address]RWV [Catalytic activity/Vol]32 U/LHigh0-31ProMedSumma Health Barberton Campus HospitalComment on above:Performed By: #### CMP #### [facility] ([id number]) [address], [address] [place], [place] [address]Phxvx gap [Moles/Vol]9 mmol/LNormal5-15ProGuernsey Memorial Hospital Hospital Comment on above:Performed By: #### CMP #### [facility] ([id number]) [address], [address] [place], [place] [address]BEQ [Catalytic activity/Vol]30 U/LNormal0-41ProGuernsey Memorial Hospital HospitalComment on above:Performed By: #### CMP #### [facility] ([id number]) [address], [address] [place], [place] [address]Gwbfzpvcs [Mass/Vol]0.3 mg/dLNormal0.3-1.2PCommunity Regional Medical Center HospitalComment on above:Performed By: #### CMP #### [facility] ([id number]) [address], [address] [place], [place] [address]Xdqrnfc [Mass/Vol]8.9 mg/dLNormal8.5-10.5PCommunity Regional Medical Center HospitalComment on above:Performed By: #### CMP #### [facility] ([id number]) [address], [address] [place], [place] [address]Yukrqrcq [Moles/Vol]105 mmol/UFffdgv99-685AbwHmncjn [place] HospitalComment on above:Performed By: #### CMP #### [facility] ([id number]) [address], [address] [place], [place] [address]KO4 [Moles/Vol]25 mmol/FUyriva00-16QnlZpauduOhio State Harding Hospital Comment on above:Performed By: #### CMP #### [facility] ([id number]) [address], [address] [place], [place] [address]Ssylhskhmu [Mass/Vol]0.78 mg/dLNormal0.40-1.00ProOhiohealth Doctors HospitalComment on above:Result Comment: METHOD TRACEABLE TO IDMS STANDARD Performed By: #### CMP #### [facility] ([id number]) [address], [address] [place], [place] [address]vTLP (CKD-EPI) NON-RACE DEPENDENT>90Normal>59ProGuernsey Memorial Hospital HospitalComment on above:Result Comment: Reported eGFR is based on the CKD-EPI 2020 equation that does not use a race coefficient.Performed By: #### CMP #### [facility] ([id number]) [address], [address] [place], [place] [address]Ewsixlm [Mass/Vol]98 mg/cQFfbhog89-27ZhzMbxwwa [facility] Comment on above:Performed By: #### CMP #### [facility] ([id number]) [address], [address] [place], [place] [address]Zijyikedc [Moles/Vol]4.2 mmol/LNormal3.5-5.0ProOhiohealth Doctors HospitalComment on above:Performed By: #### CMP #### [facility] ([id number]) [address], [address] [place], [place] [address]Oalxkxp [Mass/Vol]7.0 g/dLNormal6.0-8.0ProGuernsey Memorial Hospital Hospital Comment on above:Performed By: #### CMP #### [facility] ([id number]) [address], [address] [place], [place] [address]Wtkxeq [Moles/Vol]139 mmol/LSraqol494-063BynQtnmmq [place] HospitalComment on above:Performed By: #### CMP #### [facility] ([id number]) [address], [address] [place], [place] [address]Ekop nitrogen [Mass/Vol]9 mg/dLNormal5-23ProGuernsey Memorial Hospital HospitalComment on above:Performed By: #### CMP #### [facility] ([id number]) [address], [address] [place], [place] [address]FJPQ EKGOrdered By: Mari Hubbard on 86-51-0002YbvMeyjsz Health System Work Phone: MR BRAIN WO CONTon 21-03-7055FC BRAIN WO CONTMR BRAIN WO CONT MR BRAIN WO CONT [...] Benja Cruz MD on 04/14/2024 7:49 AM IBony have personally reviewed the image(s) and agree with and/or edited the report Finalized by Bony Monte on 04/14/2024 9:03 AMNormalDoctors Hospital$ Carpal Tunnel Injection: R carpal tunnelon 68-28-4849Unogtngozi Arnold MD 03/07/2024 1:06 PM $ Carpal [...] in the usual sterile fashion. MANUALLY TRANSCRIBED RESULTSVermont State HospitalBenten BioServices Formerly Oakwood Heritage HospitalXR Hand - left 3 Viewson 93-59-8112Uhcem views left hand taken today. PA, oblique, lateral. No comparison films. No acute osseous abnormalities. No evidence of advanced osteoarthritis. Impression: Atraumatic left hand films. MANUALLY TRANSCRIBED RESULTSKettering Health – Soin Medical CenterAito BV Formerly Oakwood Heritage HospitalRadiology Study observation (narrative)[facility] Memorial HospitalInsiders@ Project SystemXR Hand - right 3 Viewson 48-54-7112Hvmno views right hand taken today. PA, oblique, lateral. No comparison films. No acute osseous abnormalities. No evidence of advanced osteoarthritis. Impression: Atraumatic right hand films.MANUALLY TRANSCRIBED RESULTSKettering Health – Soin Medical CenterAito BV Formerly [facility] Heritage HospitalRadiology Study observation (narrative)[facility] Memorial HospitalInsiders@ Project SystemHCG ( test) Ql (U)on 10-04-3094Jicm HCG ( test) Ql (U)Negative NormalNEGDoctors HospitalComment on above:Performed By: #### 2106-3 #### [facility] ([id number]) [address] [place] [address]BU ABDOMEN AND PELVIS W WO CONTon 42-61-7792EC ABDOMEN AND PELVIS W WO CONTCT ABDOMEN AND PELVIS W WO CONT History: Incisional hernia without obstruction or gangrene Exam/Technique: CT images of abdomen and pelvis were obtained with and without intravenous contrast injection. CT does automated exposure control was utilized. All CT scans at this facility use dose modulation, iterative reconstruction, and/or weight based dosing when appropriate to reduce radiation dose to as lowas reasonably achievable. Comparison: No relevant prior studies [...] by Evaristo Barboza MD on 02/07/2024 6:30 AMNormalSuburban Community Hospital & Brentwood Hospital HospitalMeasure post void residualon 11-67-4527Fitqqz8 mlHudson Hospital and Clinic SystemPOCT urinalysis dipstick onlyon 17-62-9249Tqvrauxfxm (U) ClearProLancaster Municipal Hospital SystemExternal Poct Urine BloodNegativeTuscarawas Hospital SystemExternal Poct Urine ColorYellowProLancaster Municipal Hospital SystemExternal Poct Urine GlucoseNegativeTuscarawas Hospital SystemExternal Poct Urine KetonesNegative [facility] HospitalExternal Poct Urine Leukocyte EsteraseNegativeChillicothe HospitalExternal Poct Urine NitriteNegativeChillicothe HospitalExternal Poct Urine Vo9HsbHkwnvlLancaster Municipal Hospital SystemExternal Poct Urine ProteinNegative [facility] Hospital - MuhlenbergFetal nonstress test - Maternal Medicineon 25-31-1877Vbzkjjf Name: Arabella Hernandez Patient : 1990 NST Objective Findings: Variability: Moderate Decelerations: None Accelerations: Yes Acoustic Stimulator: Yes Baseline: 140 BPM Uterine Irritability: No Contractions: Irregular Comments: FKC, labor precautions, and bleeding precautions reviewed with patient. Patient verbalizes understanding. NST Interpretation: Nonstress Test Interpretation: Reactive (Stu Easton MD) Overall Impression: Reassuring (Stu Easton MD) NST performed by: Marcella Almeida RN 09/21/2023 3:11 PM [facility] HospitalNo Panel Informationon 61-23-4388Klgnfhw Name: Arabella Hernandez Patient : 1990 NST Objective Findings: Variability: Moderate Decelerations: None Accelerations: Yes Acoustic Stimulator: No Baseline: 130 BPM Uterine Irritability: Yes Comments: FKC, labor precautions, and bleeding precautions reviewed with patient. Patient verbalizes understanding. NST Interpretation: Nonstress Test Interpretation: Reactive (Roman Sears MD) Overall Impression: Reassuring (Roman Sears MD) NST performed by: Lesley Alcantara RN 09/12/2023 4:25 PM [facility] HospitalPOCT Influenza A/Influenza B/SARS-COV-2 Veritoron 14-43-4389Jkjwrlop Poct Influenza A AntigenNegativeChillicothe Hospital External Poct Influenza B AntigenNegativeChillicothe HospitalInterpretation and review of laboratory resultsNoDorothea Dix HospitalARS-CoV-2 (COVID- 19) Ag IA.rapid Ql (Resp)NegativeLehigh Valley Hospital - Muhlenberg POCT rapid strep AOrdered By: Jaky Cid on 94-59-2085Liwpzzvo Septic Pump Truck Driver Check Completed and PassedYeCleveland Clinic Mentor HospitalInterpretation and review of laboratory resultsAtrium Health SouthPark. pyogenes Ag IA Ql (Unsp spec) NegativeNegativeLehigh Valley Hospital - Muhlenberg URETHRITIS/DISCHARGE PLUS VAGINITIS (HTRX)on 84-78-7641TROXWBQVH ENVSUHA2IWZO HealthcareATOPOBIUM VAGINAENot detectedNOMS HealthcareBVAB 2,3 (BACTERIAL VAGINOSIS ASSOCIATED BACTERIA 2, 3); MOBILUNCUS PXH5FWBJ HealthcareBVAB 2,3 (BACTERIAL VAGINOSIS ASSOCIATED BACTERIA 2, 3); MOBILUNCUS SPPNot detectedNOMS HealthcareCANDIDA ALBICANS, PARAPSILOSIS, XPNZTSLYUE4VUMF HealthcareCANDIDA ALBICANS, PARAPSILOSIS, TROPICALISNot detectedNOMS HealthcareCANDIDA GLABRATA0 NOMS HealthcareCANDIDA GLABRATANot detectedNOMS HealthcareCANDIDA ONCJPC4SXVP HealthcareCANDIDA KRUSEINot detectedNOMS HealthcareCHLAMYDIA AUCVIVVTNAC9NYWR HealthcareCHLAMYDIA TRACHOMATISNot detectedNOMS HealthcareGARDNERELLA VAGINALIS0 NOMS HealthcareGARDNERELLA VAGINALISNot detectedNOMS HealthcareMEGASPHAERA (TYPES 1, 2)0NOMS HealthcareMEGASPHAERA (TYPES 1, 2)Not detectedNOMS Healthcare MYCOPLASMA QEUVRPMDZO2PESR HealthcareMYCOPLASMA GENITALIUMNot detectedNOMS HealthcareNEISSERIA FABZXOPYTPH3JWRB HealthcareNEISSERIA GONORRHOEAENot detected NOMS HealthcareTRICHOMONAS QKFWVTWJQ0FXEE HealthcareTRICHOMONAS VAGINALISNot detectedNOMS HealthcareNOMS HealthcareFetal Free Cell DNAOrdered By: Gracy Rodriguez on 95-59-3254FveCbdywoMercy Health Defiance Hospital AUTO DIFFon 35-52-5627ZIHF #0.0 103/ul Normal0.0-0.1[facility]ner Medical CenterComment on above:Performed By: #### CBC #### [facility] [address] [address] [address] Yassine ZarateBasophils/100 WBC (Bld)0.3 %Normal0.2-2.0The [facility] Comment on above:Performed By: #### CBC #### [facility] [address] [address] [address] Yassine Ralph #0.1 103/ulNormal0.0-0.7The [facility] HospitalComment on above: Performed By: #### CBC #### [facility] [address] [address] [address] Yassine Youngosinophils/100 WBC (Bld)0.8 %Critically low0.9-7.0The Main Campus Medical Centerment on above:Performed By: #### CBC #### [facility] [address] [place] [address] Dr. Yassine Youngrythrocyte distribution width (RBC) [Ratio]14.1 %Gktiyq19.0-15.0 [facility] Medical CenterComment on above:Performed By: #### CBC #### [facility] [address] [place] [address] Dr. Yassine ZarateHematocrit (Bld) [Volume fraction]31.8 %Critically low36.0-48.0 [facility] Medical CenterComment on above:Performed By: #### CBC #### [facility] [address] [place] [address] Dr. Yassine ZarateHemoglobin (Bld) [Mass/Vol]10.3 g/dLCritically low12.0-16.0The [facility] HospitalComment on above:Performed By: #### CBC #### [facility] [address] [place] [address] Dr. Yassine Magallanes #0.10 10e3/ulCritically high0.00-0.03The [facility] Comment on above:Performed By: #### CBC #### [facility] [address] [place] [address] Dr. Yassine Magallanes %0.8 %Critically high0.0-0.5ThRegency Hospital ToledoComascension borgess hospital on above:Performed By: #### CBC #### [facility] [address] [place] [address] Dr. Yassine Long #1.9 103/ulNormal1.2-3.8The [facility] HospitalComment on above:Performed By: #### CBC #### [facility] [address] [place] [address] Dr. Yassine Mittalmphocytes/100 WBC (Bld)14.1 %Critically low20.5-60.0[facility] County Hospitalment on above:Performed By: #### CBC #### [facility] [address] [place] [address] Dr. Yassine MonsalveUAL DIFF REQNONormalThe [facility] HospitalComment on above: Performed By: #### CBC #### [facility] [address] [address] [address] Yassine Winslow (RBC) [Entitic mass]25.6 pgCritically low26.7-34.0The [facility] HospitalComment on above:Performed By: #### CBC #### [facility] [address] [place] [address] Dr. Yassine Winslow (RBC) [Mass/Vol]32.4 g/sNNjoqrk86.9-35.2The [facility] HospitalComment on above:Performed By: #### CBC #### [facility] [address] [place] [address] Dr. Yassine Manuel (RBC) [Entitic vol]79.1 fLCritically low81.0-99.0[facility] Medical CenterComment on above:Performed By: #### CBC #### [facility] [address] [place] [address] Dr. Yassine Elmore #0.9 103/ulCritically high0.3-0.8ThRegency Hospital [facility] Comment on above:Performed By: #### CBC #### [facility] [address] [place] [address] Dr. Yassine Andersocytes/100 WBC (Bld)6.6 %Normal1.7-12.0[facility] Comment on above:Performed By: #### CBC #### [facility] [address] [place] [address] Dr. Yassine Norris #10.3 103/ulCritically high1.4-6.5ThRegency Hospital [place] Comment on above:Performed By: #### CBC #### [facility] [address] [place] [address] Dr. Yassine Martinezutrophils/100 WBC (Bld)77.4 %Critically high43.0-75.0[facility] Medical CenterComment on above:Performed By: #### CBC #### [facility] [address] [place] [address] Dr. Yassine Deutsch mean volume (Bld) [Entitic vol]9.6 fLNormal9.5-13.5The [facility] HospitalComment on above:Performed By: #### CBC #### [facility] [address] [place] [address] Dr. Yassine ZaratePLT251 103/ygRpshoz528-775Cwy [facility] HospitalComment on above: Performed By: #### CBC #### [facility] [address] [place] [address] Dr. Yassine ZarateRBC4.02 106/ulCritically low4.20-5.40The [facility] HospitalComment on above:Performed By: #### CBC #### [facility] [address] [place] [address] Dr. Yassine ZarateWBC13.3 103/ulCritically high4.0-11.0The [facility] HospitalComment on above:Performed By: #### CBC #### [facility] [address] [place] [address] Dr. Yassine Chen AUTO DIFFon 44-87-2019MIFR #0.1 103/ulNormal0.0-0.1The [facility] HospitalComment on above:Performed By: #### CBC #### [facility] [address] [place] [address] Dr. Yassine ZarateBasophils/100 WBC (Bld)0.5 %Normal0.2-2.0[facility] Comment on above:Performed By: #### CBC #### [facility] [address] [place] [address] Dr. Yassine Ralph #0.1 103/ulNormal0.0-0.7The [facility] HospitalComment on above: Performed By: #### CBC #### [facility] [address] [place] [address] Dr. Yassine Youngosinophils/100 WBC (Bld)1.1 %Normal0.9-7.0[facility] Comment on above:Performed By: #### CBC #### [facility] [address] [address] [address] Yassine Youngrythrocyte distribution width (RBC) [Ratio]13.9 %Liudxz58.0-15.0 [facility] Hospitalment on above:Performed By: #### CBC #### [facility] [address] [place] [address] Dr. Yassine ZarateHematocrit (Bld) [Volume fraction]34.8 %Critically low36.0-48.0 [facility] HospitalComment on above:Performed By: #### CBC #### [facility] [address] [place] [address] Dr. Yassine ZarateHemoglobin (Bld) [Mass/Vol]11.5 g/dLCritically low12.0-16.0[facility] on above:Performed By: #### CBC #### [facility] [address] [place] [address] Dr. Yassine Magallanes #0.15 10e3/ulCritically high0.00-0.03The [facility] Comment on above:Performed By: #### CBC #### [facility] [address] [place] [address] Dr. Yassine Magallanes %1.3 %Critically high0.0-0.5The [facility] on above:Performed By: #### CBC #### [facility] [address] [place] [address] Dr. Yassine BoltonH #2.5 103/ulNormal1.2-3.8The [facility] HospitalComment on above:Performed By: #### CBC #### [facility] [address] [place] [address] Dr. Yassine Mittalmphocytes/100 WBC (Bld)20.6 %Gnejer12.5-60.0[facility] Hospitalment on above:Performed By: #### CBC #### [facility] [address] [place] [address] Dr. Yassine MonsalveUAL DIFF REQNONormalThe [facility] HospitalComment on above: Performed By: #### CBC #### [facility] [address] [address] [address] Yassine Winslow (RBC) [Entitic mass]25.6 pgCritically low26.7-34.0The [facility] HospitalComment on above:Performed By: #### CBC #### [facility] [address] [place] [address] Dr. Yassine Winslow (RBC) [Mass/Vol]33.0 g/nWNzhxnb53.9-35.2The [facility] HospitalComment on above:Performed By: #### CBC #### [facility] [address] [place] [address] Dr. Yassine WinslowV (RBC) [Entitic vol]77.5 fLCritically low81.0-99.0The [facility] HospitalComment on above:Performed By: #### CBC #### [facility] [address] [place] [address] Dr. Yassine Elmore #0.7 103/ulNormal0.3-0.8The [facility] Osteopathic HospitalComment on above:Performed By: #### CBC #### [facility] [address] [place] [address] Dr. Yassine Andersocytes/100 WBC (Bld)6.1 %Normal1.7-12.0[facility] Comment on above:Performed By: #### CBC #### [facility] [address] [place] [address] Dr. Yassine Norris #8.4 103/ulCritically high1.4-6.5[facility] Comment on above:Performed By: #### CBC #### [facility] [address] [place] [address] Dr. Yassine Martinezutrophils/100 WBC (Bld)70.4 %Rzdwkd68.0-75.0The [facility] HospitalComment on above:Performed By: #### CBC #### [facility] [address] [place] [address] Dr. Yassine Deutsch mean volume (Bld) [Entitic vol]9.6 fLNormal9.5-13.5The [facility] HospitalComment on above:Performed By: #### CBC #### [facility] [address] [address] [address] Yassine ZaratePLT294 103/ikEbumgv025-927Rhd [facility] HospitalComasc[facility] on above: Performed By: #### CBC #### [facility] [address] [address] [address] Yassine ZarateRBC4.49 106/ulNormal4.20-5.40The [facility] HospitalComment on above:Performed By: #### CBC #### [facility] [address] [address] [address] Yassine ZarateWBC11.9 103/ulCritically high4.0-11.0The [facility] on above:Performed By: #### CBC #### [facility] [address] [place] [address] Dr. Yassine ZarateDRUG SCREEN RAPID (URINE)on [id number]U [facility] CenterCom[facility] on above:Performed By: #### DRUGRPD #### [facility] [address] [place] [address] Dr. Yassine MeraNegativeNormalNEGATIVEOhio State University Wex[facility] Medical CenterComascension [facility]org[facility] hospital on above: Performed By: #### DRUGRPD #### [facility] [address] [place] [address] Dr. Yassine ZarateBUPNegativeNormalNEGATIVEOhio State University [facility] CenterComasc[facility] on above: Performed By: #### DRUGRPD #### [facility] [address] [place] [address] Dr. Yassine ZarateBZONegativeNormalNEGATIVEOhio State University [facility] CenterComasc[facility] on above: Performed By: #### DRUGRPD #### [facility] [address] [place] [address] Dr. Yassine NelsonCNegativeNormalNEGATIVEOhio State University [facility] CenterComasc[facility] on above: Performed By: #### DRUGRPD #### [facility] [address] [place] [address] Dr. Yilan [facility]ert County HospitalComment on above: Result Comment: AMP (Amphetamine): 500ng/mL, BAR (Barbituates): 200 ng/mL, BZO (Benzodiazepines): 150 ng/mL, BUP (Buprenorphine): 10 ng/mL, RACIEL (Cocaine): 150 ng/mL, mAMP (Methamphetamine): 500 ng/mL, MTD (Methadone): 200 ng/mL, OPI (Opiates): 100 ng/mL, OXY (Oxycodone): 100 ng/mL, PCP (Phencyclidine): 25 ng/mL, PPX (Propoxyphene): 300 ng/mL, THC (Cannabinoids): 50 ng/mL, TCA (Trycyclic Antidepressants): 300 ng/mLPerformed By: #### DRUGRPD #### [facility] [address] [place] [address] Dr. Yassine ZarateDRUG CUT HEADERDRUG CLASS TEST SYSTEM CUT-OFF CONCENTRATIONS ARE FOLLOWS:NormalThe [facility] HospitalComment on above:Performed By: #### DRUGRPD #### [facility] [address] [place] [address] Dr. Yassine ZaratemAMPNegativeNormalNEGATIVEOhio State University [facility] CenterComasc[facility] hospital on above: Performed By: #### DRUGRPD #### [facility] [address] [place] [address] Dr. Yassine ZarateMTDNegativeNormalNEGATIVEOhio State University [facility] CenterComasc[facility] hospital on above: Performed By: #### DRUGRPD #### [facility] [address] [place] [address] Dr. Yassine RodriguezINegativeNormalNEGATIVEOhio State University [facility] CenterComasc[facility] hospital on above: Performed By: #### DRUGRPD #### [facility] [address] [place] [address] Dr. Yassine ZarateOXYNegativeNormalNEGATIVEOhio State University [facility] CenterComasc[facility] on above: Performed By: #### DRUGRPD #### [facility] [address] [place] [address] Dr. Yassine ZaratePCPNegativeNormalNEGATIVEOhio State University [facility] Medical CenterComment on above: Performed By: #### DRUGRPD #### [facility] [address] [place] [address] Dr. Yassine ZaratePPXNegativermalNEGAshtabula County Medical CenterComment on above: Performed By: #### DRUGRPD #### [facility] [address] [place] [address] Dr. Yassine ZarateTCANegativeNormalNEGAshtabula County Medical CenterComment on above: Performed By: #### DRUGRPD #### [facility] [address] [place] [address] Dr. Yassine ZarateTHCNegativeNormalNEGAshtabula County Medical CenterComment on above: Performed By: #### DRUGRPD #### [facility] [address] [place] [address] Dr. Yassine Jade AND SCREENon [id number] AND SCREENNegativeCenterpoint Medical CenteralThRegency Hospital ToledoComment on above:Performed By: #### CBC #### [facility] [address] [place] [address] Dr. Yassine Roberts B STREP CULTUREon 07-09-2022S. agalactiae Ag Ql (Unsp spec) Isolate 1 [...] Vancomycin 0.5 S F Tetracycline >=16 R FNormalOhio State University Wexner Medical CenterComment on above:Performed By: #### CBC #### [facility] [address] [place] [address] Dr. Yassine Edwards PREG GROWTHon [id number] PREG GROWTHEXAMINATION: US PREG GROWTH HISTORY: Uterine size for [...] Electronically authenticated by: VILMA COBURN Date: 2022-06-15 15:12[facility] ACOG PANEL 2: 21 to 29on 04-25-2022..NormalOhio State University Wexner Medical CenterComment on above:Performed By: #### CBC #### [facility] [address] [place] [address] Dr. Yassine Henderson Gdln ACOG Cammumd99-61LbxpguIgjMarietta Osteopathic ClinicComment on above:Performed By: #### CBC #### [facility] [address] [place] [address] Dr. Yassine ZarateDIAGNOSIS:CommentNoMarietta Osteopathic ClinicComment on above: Result Comment: NEGATIVE FOR INTRAEPITHELIAL LESION OR MALIGNANCY. CELLULAR CHANGES ASSOCIATED WITH INFLAMMATION ARE PRESENT.Performed By: #### CBC #### [facility] [address] [place] [address] Dr. Yassine ZarateMethodology:CommentNormSheltering Arms HospitalComment on above: Result Comment: This liquid based ThinPrep(R) pap test was screened with the use of an image guided system.Performed By: #### CBC #### [facility] [address] [place] [address] Dr. Yassine ZarateNote:CommentLakeHealth TriPoint Medical CenterComment on above:Result Comment: The Pap smear is a screening test designed to aid in the detection of premalignant and malignant conditions of the uterine cervix. It is not a diagnostic procedure and should not be used as the sole means of detecting cervical cancer. Both false-positive and false-negative reports do occur. .Performed By: #### CBC #### [facility] [address] [place] [address] Dr. Yassine ZaratePerformed by:CommentSamaritan North Health Center on above: Result Comment: Astrid Christensen, Dish Machine Operator (ASCP)Performed By: #### CBC #### [facility] [address] [place] [address] Dr. Yassine ZarateReflex Criteria:CommentSamaritan North Health Center on above:Result Comment: The HPV DNA reflex criteria were not met with this specimen result therefore, no HPV testing was performed. .Performed By: #### CBC #### [facility] [address] [place] [address] Dr. Yassine ZarateSpecimejudy adequacy:CommentSamaritan North Health Center on above:Result Comment: Satisfactory for evaluation. No endocervical component is identified.Performed By: #### CBC #### [facility] [address] [place] [address] Dr. Yassine ZarateCHLAMYDIA/GONOCOCCUS SARAH (SWAB/URINE/PAPon [id number] trachomatis, NAANegativeNormalNegativeOhio State University [facility] Medical CenterComment on above: Performed By: #### CBC #### [facility] [address] [place] [address] Dr. Yassine ZarateNeisseria gonorrhoeae, NAANegativeNormalNegativeOhio State University [facility] Medical CenterComment on above:Performed By: #### CBC #### [facility] [address] [place] [address] Dr. Yassine ZarateVAGINITIS/VAGINOSIS DNA PROBEon [id number] speciesPositive AbnormalNegativeOhio State University [facility]xner Medical CenterComment on above:Performed By: #### VAGINT #### [facility] [address] [place] [address] Dr. Yassine ZarateGardnerella vaginalisNegativeNormalNegativeThe [facility] Comment on above:Performed By: #### VAGINT #### [facility] [address] [address] [address] Yassine ZarateTrichomonas vaginalisNegativeNormalNegativeOhio [facility] Comment on above:Performed By: #### VAGINT #### [facility] [address] [address] [address] Yassine Chen AUTO DIFFon [id number] #0.0 103/ulNormal0.0-0.1[facility] CenterComment on above:Performed By: #### CBC #### [facility] [address] [address] [address] Yassine ZarateBasophils/100 WBC (Bld)0.4 %Normal0.2-2.0[facility] Comment on above:Performed By: #### CBC #### [facility] [address] [place] [address] Dr. Yassine Ralph #0.1 103/ulNormal0.0-0.7The [facility] HospitalComment on above: Performed By: #### CBC #### [facility] [address] [address] [address] Yassine Youngosinophils/100 WBC (Bld)1.0 %Normal0.9-7.0[facility] Comment on above:Performed By: #### CBC #### [facility] [address] [place] [address] Dr. Yassine Youngrythrocyte distribution width (RBC) [Ratio]12.3 %Hxacfc11.0-15.0 [facility] CenterComment on above:Performed By: #### CBC #### [facility] [address] [place] [address] Dr. Yassine ZarateHematocrit (Bld) [Volume fraction]34.8 %Critically low36.0-48.0 [facility] CenterComascension borgess hospital on above:Performed By: #### CBC #### [facility] [address] [place] [address] Dr. Yassine ZarateHemoglobin (Bld) [Mass/Vol]11.4 g/dLCritically low12.0-16.0The [facility] HospitalComment on above:Performed By: #### CBC #### [facility] [address] [place] [address] Dr. Yassine Magallanes #0.07 10e3/ulCritically high0.00-0.03[facility] Comment on above:Performed By: #### CBC #### [facility] [address] [place] [address] Dr. Yassine Magallanes %0.8 %Critically high0.0-0.5The [facility] HospitalComment on above:Performed By: #### CBC #### [facility] [address] [place] [address] Dr. Yassine Long #1.9 103/ulNormal1.2-3.8The [facility] HospitalComment on above:Performed By: #### CBC #### [facility] [address] [place] [address] Dr. Yassine Boltonhocytes/100 WBC (Bld)20.6 %Beqckx20.5-60.0The [facility] HospitalComment on above:Performed By: #### CBC #### [facility] [address] [place] [address] Dr. Yassine Negrete DIFF REQNONormalThe [facility] HospitalComment on above: Performed By: #### CBC #### [facility] [address] [place] [address] Dr. Yassine Winslow (RBC) [Entitic mass]26.3 pgCritically low26.7-34.0The [facility] HospitalComment on above:Performed By: #### CBC #### [facility] [address] [place] [address] Dr. Yassine Winslow (RBC) [Mass/Vol]32.8 g/wTYjulkl87.9-35.2The [facility] HospitalComment on above:Performed By: #### CBC #### [facility] [address] [place] [address] Dr. Yassine Winslow (RBC) [Entitic vol]80.2 fLCritically low81.0-99.0The [facility] HospitalComment on above:Performed By: #### CBC #### [facility] [address] [place] [address] Dr. Yassine Elmore #0.5 103/ulNormal0.3-0.8The [facility] HospitalComment on above:Performed By: #### CBC #### [facility] [address] [place] [address] Dr. Yassine Andersocytes/100 WBC (Bld)5.2 %Normal1.7-12.0[facility] Comment on above:Performed By: #### CBC #### [facility] [address] [place] [address] Dr. Yassine Norris #6.5 103/ulNormal1.4-6.5The [facility] HospitalComment on above:Performed By: #### CBC #### [facility] [address] [place] [address] Dr. Yassine Martinezutrophils/100 WBC (Bld)72.0 %Tozzbz08.0-75.0The [facility] HospitalComment on above:Performed By: #### CBC #### [facility] [address] [place] [address] Dr. Yassine Deutsch mean volume (Bld) [Entitic vol]9.2 fLCritically low 9.5-13.5The [facility] HospitalComment on above:Performed By: #### CBC #### [facility] [address] [place] [address] Dr. Yassine LinoT270 103/wiOrxnxt273-588Bdh [facility] HospitalComment on above: Performed By: #### CBC #### [facility] [address] [place] [address] Dr. Yassine KrishnanC4.34 106/ulNormal4.20-5.40The [facility] HospitalComment on above:Performed By: #### CBC #### [facility] [address] [place] [address] Dr. Yassine YooBC9.1 103/ulNormal4.0-11.0[facility] CenterComment on above: Performed By: #### CBC #### [facility] [address] [place] [address] Dr. Yassine ZarateGLUCOSE - 1HRon [id number] [Mass/Vol]97 mg/hJUmmdwu84-831 [facility] HospitalComasc[facility]org[facility] hospital on above:Performed By: #### CBC #### [facility] [address] [address] [address] Yassine Ventura MATERNAL FOR SPINA BIFIDAon 35-69-8809ART MoM1.21[facility] CenterComment on above:Performed By: #### AFPMAT #### [facility] [address] [place] [address] Dr. Yassine Ventura Value69.6 ng/mLNormalThe [facility] HospitalComascension borg[facility] hospital on above: Performed By: #### AFPMAT #### [facility] [address] [place] [address] Dr. Yassine Ventura, Serum for Spina BifidaReportLakeHealth TriPoint Medical Center Comment on above:Performed By: #### AFPMAT #### [facility] [address] [place] [address] Dr. Yassine MontillaThe [facility] Hospital on above:Result Comment: Mireya Dickinson, Ph.D., [facility] Director . References: Available Upon Request. . Multiples Of Median Cutoffs For AFP Elevations Guzman 2.5 Black 2.8 IDD 2.0 Twins 4.5 Abbreviation Definitions IDD - Insulin Dep Diabetes OSBR - Open Spina Bifida Risk . For further inquiries contact [employer] [facility] at [phone]. . This test was developed and its performance characteristics determined by [employer]. It has not been cleared or approved by the Food and Drug Administration.Performed By: #### AFPMAT #### [facility] [address] [place] [address] Dr. Yassine ZarateGest Age Collection Date20.6 weeksLakeHealth TriPoint Medical Center Comment on above:Performed By: #### AFPMAT #### [facility] [address] [place] [address] Dr. Yassine Jaramillo, Age Based onESamaritan Hospital on above:Result Comment: 08/04/2022 Recalculations are not recommended when gestational dating by LMP and ultrasound are within 10 days.Performed By: #### AFPMAT #### [facility] [address] [place] [address] Dr. Yassine ZarateInsulin [facility] HospitalComment on above:Performed By: #### AFPMAT #### [facility] [address] [place] [address] Dr. Yassine ZarateInterpretationRegency Hospital Cleveland EastComascension borgess hospital on above: Result Comment: Interpretation: Screen Negative . This result is screen [...] Customer Services to discuss available options. The [employer] recommends amniocentesis be offered to women age 35 and older.Performed By: #### AFPMAT #### [facility] [address] [place] [address] Dr. Yassine ZarateMaternalina Age at EDD30.1 [facility]Comasc[facility] borg[facility] hospital on above:Performed By: #### AFPMAT #### [facility] [address] [place] [address] Dr. Yassine ZarateMultiplyessenia [facility] GlenbeighComasc[facility] borg[facility] on above: Performed By: #### AFPMAT #### [facility] [address] [place] [address] Dr. Yassine ZarateOSBR Risk 1 [id number] TriPoint Medical CenterComascension borgess hospital on above: Performed By: #### AFPMAT #### [facility] [address] [place] [address] DrSarah Reyes.NormalOhio State University Wexner Medical CenterComment on above:Performed By: #### AFPMAT #### [facility] [address] [address] [address] Yassine CanalesucasianNormalOhio State University Wexner Medical CenterComment on above: Performed By: #### AFPMAT #### [facility] [address] [address] [address] Yassine ZarateTest Results:NegativeNormSheltering Arms HospitalComment on above: Performed By: #### AFPMAT #### [facility] [address] [address] [address] Yassine ZarateUS PREG ANATOMY SINGLEon [id number] PREG ANATOMY SINGLE EXAMINATION: US PREG ANATOMY [...] Electronically authenticated by: VILMA COBURN Date: 2022-03-21 20:38NoOhioHealth [facility] Hospital B SURFACE ANTIGEN SCREENon [id number] ScreenNegative NormalNegativeThe [facility] on above:Performed By: #### HBSANS #### [facility] [address] [place] [address] Dr. Yassine ZarateHEPATITIS C VIRUS AB W/ REFLEX QUANTon [id number] AB<0.1Normal 0.0-0.9[facility] on above:Performed By: #### HCVPCRR #### [facility] [address] [place] [address] Dr. Yassine ZarateInterpretation:CommentSamaritan North Health Center on above:Result Comment: Negative Not infected with HCV, unless recent infection is suspected or other evidence exists to indicate HCV infection.Performed By: #### HCVPCRR #### [facility] [address] [place] [address] Dr. Yassine ZarateHILuciana 1 AND 2 WITH REFLEXon [id number] Screen 4th Generation wRfxNon-ReactiveNormalNon ReactiveThe [facility] on above:Result Comment: HIV Negative HIV-1/HIV-2 antibodies and HIV-1 p24 antigen were NOT detected. There is no laboratory evidence of HIV infection.Performed By: #### CBC #### [address] [address] Dr[address] Yassine ZarateRPR QUANTon [id number] Plasma Reagin, QuantNon-Reactive NormalNonRea<1:1[facility] on above:Result Comment: Please Note: This test does not meet current guidelines for screening and diagnosis of syphilis. This test is intended for following treatment response in patients being treated for syphilis infection. To screen for syphilis infection, a reflex cascade that includes both RPR and a treponema-specific assay should be utilized, such as Treponema pallidum (Syphilis) Screening [place] (462543) or Rapid Plasma Reagin (RPR) Test With Reflex to Quantitative RPR and Confirmatory Treponema pallidum Antibodies (698107).Performed By: #### CBC #### [address] [address] [address] Yassine Rowe AB IGGon 76-24-6748Wibncrz Antibodies, IgG1.96 index NormalImmune >0.99[facility] CenterComment on above:Result Comment: Non- immune <0.90 Equivocal 0.90 - 0.99 Immune >0.99Performed By: #### CBC #### [facility] [address] [place] [address] Dr. Yassine Chen AUTO DIFFon [id number] #0.0 103/ulNormal0.0-0.1The [facility] HospitalComment on above:Performed By: #### CBC #### [facility] [address] [place] [address] Dr. Yassine ZarateBasophils/100 WBC (Bld)0.4 %Normal0.2-2.0[facility] Comment on above:Performed By: #### CBC #### [facility] [address] [place] [address] Dr. Yassine Ralph #0.1 103/ulNormal0.0-0.7The [facility] HospitalComment on above: Performed By: #### CBC #### [facility] [address] [place] [address] Dr. Yassine Youngosinophils/100 WBC (Bld)1.4 %Normal0.9-7.0[facility] Comment on above:Performed By: #### CBC #### [facility] [address] [place] [address] Dr. Yassine Youngrythrocyte distribution width (RBC) [Ratio]12.2 %Giqdau82.0-15.0 The [facility] HospitalComment on above:Performed By: #### CBC #### [facility] [address] [place] [address] Dr. Yassine ZarateHematocrit (Bld) [Volume fraction]36.9 %Rwjzjy29.0-48.0[facility] CenterComment on above:Performed By: #### CBC #### [facility] [address] [place] [address] Dr. Yassine ZarateHemoglobin (Bld) [Mass/Vol]12.1 g/cEOezlnb41.0-16.0The [facility] HospitalComment on above:Performed By: #### CBC #### [facility] [address] [place] [address] Dr. Yassine Magallanes #0.03 10e3/ulNormal0.00-0.03The [facility] HospitalComment on above:Performed By: #### CBC #### [facility] [address] [place] [address] Dr. Yassine Magallanes %0.4 %Normal0.0-0.5The [facility] HospitalComment on above: Performed By: #### CBC #### [facility] [address] [place] [address] Dr. Yassine Long #2.0 103/ulNormal1.2-3.8The [facility] HospitalComment on above:Performed By: #### CBC #### [facility] [address] [place] [address] Dr. Yassine Mittalmphocytes/100 WBC (Bld)23.8 %Kgwqcw30.5-60.0The [facility] HospitalComment on above:Performed By: #### CBC #### [facility] [address] [place] [address] Dr. Yassine MonsalveUAL DIFF REQNONormalThe [facility] HospitalComment on above: Performed By: #### CBC #### [facility] [address] [place] [address] Dr. Yassine Winslow (RBC) [Entitic mass]26.9 iwKzmxkz27.7-34.0The [facility] HospitalComment on above:Performed By: #### CBC #### [facility] [address] [place] [address] Dr. Yassine Winslow (RBC) [Mass/Vol]32.8 g/uGDjyion67.9-35.2The [facility] HospitalComment on above:Performed By: #### CBC #### [facility] [address] [place] [address] Dr. Yassine WinslowV (RBC) [Entitic vol]82.0 qQZgcroy53.0-99.0The [facility] Campus Medical Centerment on above:Performed By: #### CBC #### [facility] Laboratory [address] [place] [address] Dr. Yassine Elmore #0.4 103/ulNormal0.3-0.8The [facility] HospitalComment on above:Performed By: #### CBC #### [facility] [address] [address] [address] Yassine Andersocytes/100 WBC (Bld)4.8 %Normal1.7-12.0[facility] Comment on above:Performed By: #### CBC #### [facility] [address] [place] [address] Dr. Yassine Norris #5.9 103/ulNormal1.4-6.5The [facility] HospitalComment on above:Performed By: #### CBC #### [facility] [address] [place] [address] Dr. Yassine Martinezutrophils/100 WBC (Bld)69.2 %Mvbapq66.0-75.0The [facility] HospitalComment on above:Performed By: #### CBC #### [facility] [address] [place] [address] Dr. Yassine Scottlet mean volume (Bld) [Entitic vol]9.0 fLCritically low 9.5-13.5The [facility] HospitalComment on above:Performed By: #### CBC #### [facility] [address] [place] [address] Dr. Yassine ZaratePLT283 103/tkQowzmc729-212Zjy [facility] HospitalComment on above: Performed By: #### CBC #### [facility] [address] [place] [address] Dr. Yassine ZarateRBC4.50 106/ulNormal4.20-5.40The [facility] HospitalComment on above:Performed By: #### CBC #### [facility] [address] [place] [address] Dr. Yassine ZarateWBC8.5 103/ulNormal4.0-11.0The [facility] Centerment on above: Performed By: #### CBC #### [facility] [address] [place] [address] Dr. Yassine ZarateCULTURE URINEon [id number] URINECulture Observations: LIGHT GROWTH OF MIXED GENITAL JACQUELYN. NO POTENTIAL PATHOGENS SEEN.NormalThe [facility]opathic HospitalComment on above:Performed By: #### URCX #### [facility] [address] [place] [address] Dr. Yassine ZarateGLYCOHEMOGLOBIN A1Con [id number] RECOMMENDATIONSEE BELOWNormal The [facility] HospitalComasc[facility] on above:Result Comment: ADA RECOMMENDED LIMIT 4.0 - 6.0 ADA THERAPEUTIC TARGET < 7.0 ACTION SUGGESTED > 7.0Performed By: #### CBC #### [facility] [address] [place] [address] Dr. Yassine ZarateGlucose [Mass/Vol]108 mg/dLNoSelect Medical Specialty Hospital [facility] on above:Performed By: #### CBC #### [facility] [address] [place] [address] Dr. Yassine ZarateHbA1c (Bld) [Mass fraction]5.4 %Normal4.5-6.2The [facility] on above:Performed By: #### CBC #### [facility] [address] [place] [address] Dr. Yassine Cash BOX TEST PT SEND OUTon [id number] TO REF LAB01/17/2022 NormalThe [facility] on above:Performed By: #### CBC #### [facility] [address] [place] [address] Dr. Yassine ZarateTYPE AND SCREENon 09-72-8893WVTS AND SCREENNegativeNoMarietta Osteopathic ClinicComascension borgess hospital on above:Performed By: #### TNS #### [facility] [address] [place] [address] Dr. Yassine ZarateUS PREG TVon [id number] PREG TVEXAMINATION: US PREG TV HISTORY: Missed period COMPARISON: [...] Electronically authenticated by: VILMA COBURN Date: 2021-12-29 16:26[facility] CenterUS PELVIS AND TRANSVAGon [id number] PELVIS AND TRANSVAG EXAMINATION: US PELVIS AND [...] Electronically authenticated by: BEBO JORGE Date: 2021-11-13 12:05[facility] CenterHEPATITIS C AB W/REFL TO HCV RNA, QN, PCRon [id number] C NCEYCMDSVzx-NuprirruZtznpdTHM-LMGEGRAOJiiey DiagnosticsComment on above: Performed By: #### 8472 #### [facility] [address], [address] [place] [phone] [employer] Operator: Holden Mathur MDINDEX0.04Normal<1.00Quest DiagnosticsComment on above:Result Comment: HCV antibody was non-reactive. There is no laboratory evidence of HCV infection. In most cases, no further action is required. However, if recent HCV exposure is suspected, a test for HCV RNA (test code 19946) is suggested. For additional information please refer to http://education.[employer]/faq/KYQ79c4 (This link is being provided for informational/ educational purposes only.)Performed By: #### 8472 #### [facility] [address] [facility], [address] [place] [address] [employer] Operator: Holden Mathur MDLIPID PROFILEon [id number]-HDL RATIO NORM SEE BELOWLakeHealth TriPoint Medical CenterComment on above:Result Comment: 3.3 - 4.4 LOW RISK 4.4 - 7.1 AVERAGE RISK 7.1 - 11.0 MODERATE RISK >11.0 HIGH RISK Performed By: #### CBC #### [facility] [address] [place] [address] Dr. Yassine Andrewesterol [Mass/Vol]176 mg/dLNormal<=200[facility] Comment on above:Performed By: #### CBC #### [facility] [address] [place] [address] Dr. Yassine Andrewesterol in HDL [Mass/Vol]58 mg/tUWrwruj77-01DsuOhio State University Wexner Medical CenterComment on above:Performed By: #### CBC #### [facility] [address] [place] [address] Dr. Yassine Andrewesterol in LDL [Mass/Vol]98.4 mg/dLNoMarietta Osteopathic ClinicComment on above:Performed By: #### CBC #### [facility] [address] [place] [address] Dr. Yassine Jaime.total/Cholesterol in HDL [Mass ratio]3.0 {ratio} NormalOhio State University Wexner Medical CenterComment on above:Performed By: #### CBC #### [facility] [address] [place] [address] Dr. Yassine Ayala NORMAL> or = 60 mg/dl - LOW CARDIOVASCULAR RISK <40 mg/dl - HIGH CARDIOVASCULAR RISKLakeHealth TriPoint Medical CenterComment on above:Performed By: #### CBC #### [facility] [address] [place] [address] Dr. Yassine Sanchez CALC NORMALSEE BELOWNoMarietta Osteopathic ClinicComment on above:Result Comment: <100 mg/dl OPTIMAL 100 - 129 mg/dl NEAR OR ABOVE OPTIMAL 130 - 159 mg/dl BORDERLINE HIGH 160 - 189 mg/dl HIGH >190 mg/dl VERY HIGH Performed By: #### CBC #### [facility] [address] [place] [address] Dr. Yassine ZarateTriglyceride [Mass/Vol]98 mg/dLNormal<=150The [facility] Comment on above:Performed By: #### CBC #### [facility] [address] [place] [address] Dr. Yassine AragonLDL CALC19.6 mg/dLNoMarietta Osteopathic ClinicComment on above: Performed By: #### CBC #### [facility] [address] [place] [address] Dr. Yassine ZaratePROF 14(COMP METB)on 71-11-3048Yknrfak [Mass/Vol]3.8 g/dLNormal 3.4-5.0The [facility] HospitalComment on above:Performed By: #### CBC #### [facility] [address] [place] [address] Dr. Yassine ZarateAlbumin/Globulin [Mass ratio]1.1 {ratio}NormalThe [facility] HospitalComment on above:Performed By: #### CBC #### [facility] [address] [place] [address] Dr. Yassine Sawant [Catalytic activity/Vol]79 U/MTlrhig55-007Ghq [facility] HospitalComascension [facility]org[facility] hospital on above:Performed By: #### CBC #### [facility] [address] [place] [address] Dr. Yassine Conde [Catalytic activity/Vol]16 U/UPktyjb71-22Uvc [facility] HospitalComment on above:Performed By: #### CBC #### [facility] [address] [address] [address] Yassine Quanon gap [Moles/Vol]14.4 mmol/LNormalThe [facility] Comment on above:Performed By: #### CBC #### [facility] [address] [address] [address] Yassine ZarateAST [Catalytic activity/Vol]13 U/LCritically xet48-52Alc [facility] HospitalComment on above:Performed By: #### CBC #### [facility] [address] [address] [address] Yassine ZarateBilirubin [Mass/Vol]0.5 mg/dLNormal0.2-1.0[facility] Comment on above:Performed By: #### CBC #### [facility] [address] [address] [address] Yassine ZarateCalcium [Mass/Vol]8.8 mg/dLNormal8.5-10.1The [facility] Comment on above:Performed By: #### CBC #### [facility] [address] [address] [address] Yassine ZarateChloride [Moles/Vol]103 mmol/TNvtvja42-027Xih [facility] Comment on above:Performed By: #### CBC #### [facility] [address] [address] [address] Yassine ZarateCO2 [Moles/Vol]25.7 mmol/DVfpnvl59.0-32.0[facility] Comment on above:Performed By: #### CBC #### [facility] [address] [address] [address] Yassine ZarateCreatinine [Mass/Vol]0.69 mg/dLNormal0.55-1.02The [facility] HospitalComment on above:Performed By: #### CBC #### [facility] [address] [address] [address] Metzger ChangEGFR-AF CITIZEN OF [place]>60Normal>=60The [facility] HospitalComment on above:Performed By: #### CBC #### [facility] [address] [address] [address] Yassine YoungGFR-NON AF CITIZEN OF [place]>60Normal>=60The [facility] HospitalComment on above:Performed By: #### CBC #### [facility] [address] [address] [address] Yassine ZarateGlobulin (S) [Mass/Vol]3.5 g/dLNormSheltering Arms HospitalComment on above:Performed By: #### CBC #### [facility] [address] [address] [address] Yassine ZarateGlucose [Mass/Vol]85 mg/pGTbnkmp56-831Nsb [facility] Comment on above:Performed By: #### CBC #### [facility] [address] [place] [address] Dr. Yassine ZaratePotassium [Moles/Vol]4.1 mmol/LNormal3.5-5.1The [facility] Comment on above:Performed By: #### CBC #### [facility] [address] [address] [address] Yassine ZarateProtein [Mass/Vol]7.3 g/dLNormal6.4-8.2The [facility] Comment on above:Performed By: #### CBC #### [facility] [address] [place] [address] Dr. Yassine ZarateSodium [Moles/Vol]139 mmol/AWcqxrc418-290Whk [facility] Comment on above:Performed By: #### CBC #### [facility] [address] [place] [address] Dr. Yassine ZarateUrea nitrogen [Mass/Vol]13.0 mg/dLNormal7.0-18.0The [facility] HospitalComment on above:Performed By: #### CBC #### [facility] [address] [address] [address] Yassine ZarateUrea nitrogen/Creatinine [Mass ratio]18.8 mg/mgNormalThRegency Hospital ToledoComment on above:Performed By: #### CBC #### [facility] [address] [address] [address] Yassine Melgar METABOLIC PANELon 27-39-7509FTQ/CREATININE RATIONOT APPLICABLENormal09-21Quest DiagnosticsComment on above:Order Comment: FASTING:NO FASTING: NOPerformed By: #### 77069, 6399, 25484, 78655 #### [facility] [address], [address] [place] [address] [employer] Operator: Holden Mathur MDCalcium [Mass/Vol]9.6 mg/dLNormal8.6-10.2Quest DiagnosticsComment on above:Order Comment: FASTING:NO FASTING: NOPerformed By: #### 73024, 6399, 49077, 61638 #### [facility] [address] [address] [employer] Operator: Holden Mathur MDChloride [Moles/Vol]105 mmol/CEjznyt93-897 [facility] DiagnosticsComment on above:Order Comment: FASTING:NO FASTING: NOPerformed By: #### 90997, 6399, 47262, 37506 #### [facility] [address] [address] [employer] Operator: Holden Mathur MDCO2 [Moles/Vol]24 mmol/FSbqdqe04-94Fgssd DiagnosticsComment on above:Order Comment: FASTING:NO FASTING: NOPerformed By: #### 80916, 6399, 44267, 67843 #### [facility] [address] [address] [employer] Operator: Holden HARTreatinine [Mass/Vol]0.74 mg/dLNormal0.50-1.10 [facility] DiagnosticsComment on above:Order Comment: FASTING:NO FASTING: NOPerformed By: #### 98370, 6399, 34350, 95628 #### [facility] [address] [address] [employer] Operator: Holden Mathur MDeGFR NON-AFR. JMLNHEAI485 mL/min/1.13q5Yftlqa> OR = 60Quest DiagnosticsComment on above:Order Comment: FASTING:NO FASTING: NOPerformed By: #### 91779, 6399, 22252, 91956 #### [facility] [address] [address] [employer] Operator: Holden Mathur MDGFR/1.73 sq M.predicted among blacks MDRD (S/P/Bld) [Vol rate/Area]128 mL/min/{1.73_m2}Normal> OR = 60[facility] Comment on above:Order Comment: FASTING:NO FASTING: NOPerformed By: #### 11650, 6399, 51101, 44340 #### [facility] [address] [address] [employer] Operator: Holden Mathur MDGlucose [Mass/Vol]83 mg/qGPwoktd75-875Ldzjw DiagnosticsComment on above:Order Comment: FASTING:NO FASTING: NOResult Comment: Non-fasting reference intervalPerformed By: #### 30751, 6399, 50151, 92085 #### [facility] [address], [address] [place] [address] [employer]amin[employer] Operator: Holden Mathur MDPotassium [Moles/Vol]4.5 mmol/LNormal3.5-5.3 [facility] DiagnosticsComment on above:Order Comment: FASTING:NO FASTING: NOPerformed By: #### 86278, 6399, 56554, 06089 #### [facility] [address], [address] [place] [address] [employer]amin[employer] Operator: Holden Mathur MDSodium [Moles/Vol]138 mmol/SDawurg887-675Esitu DiagnosticsComment on above:Order Comment: FASTING:NO FASTING: NOPerformed By: #### 23639, 6399, 38564, 46169 #### [facility] [address], [address] [place] [address] [employer]amin[employer] Operator: Holden Mathur MDUrea nitrogen [Mass/Vol]16 mg/dLNormal7-25 [facility] DiagnosticsComment on above:Order Comment: FASTING:NO FASTING: NOPerformed By: #### 44797, 6399, 87910, 63003 #### [facility] of [address], [address] [place] [address] [employer]amin[employer] Operator: Holden Mathur MDCBC (INCLUDES DIFF/PLT)on 03-29-3196Laneigxns (Bld) [#/Vol]0.05 10*3/uLNormal0-200Quest DiagnosticsComment on above:Performed By: #### 72411, 6399, , 50951 #### [facility] of [address], [address] [place] [address] [employer]aminating Operator: Holden Mathur MDBasophils/100 WBC (Bld)0.8 %NormalQuest DiagnosticsComment on above:Performed By: #### 13880, 63, , 97480 #### [facility] of [address], [address] [place] [address] [employer]aminating Operator: Holden Mathur MDEosinophils (Bld) [#/Vol]0.112 10*3/uLNormal 15-500Quest DiagnosticsComment on above:Performed By: #### 88198, 63, , 09023 #### [facility] of [address], [address] [place] [address] [employer]aminating Operator: Holden Mathur MDEosinophils/100 WBC (Bld)1.8 %NormalQuest DiagnosticsComment on above:Performed By: #### 77545, 63, 41317, 20248 #### [facility] of [address], [address] [place] [address] [employer]aminating Operator: Holden Mathur MDErythrocyte distribution width (RBC) [Ratio] 12.3 %Mydlnk41.0-15.0Quest DiagnosticsComment on above:Performed By: #### 36447, 63, 87981, 31392 #### [facility] of [address], [address] [place] [address] [employer]aminating Operator: Holden Mathur MDHematocrit (Bld) [Volume fraction]39.4 %Normal 35.0-45.0Quest DiagnosticsComment on above:Performed By: #### 23599, 6399, 85627, 53888 #### [facility] of [address], [address] [place] [address] [employer] Laminating Operator: Holden Mathur MDHemoglobin (Bld) [Mass/Vol]13.2 g/dLNormal 11.7-15.5Quest DiagnosticsComment on above:Performed By: #### 07051, 6399, , 65141 #### [facility] of [address] [address] [employer]amin[employer] Operator: Holden Mathur MDLymphocytes (Bld) [#/Vol]1.835 10*3/uLNormal 850-3900Quest DiagnosticsComment on above:Performed By: #### 31786, 63, , 52111 #### [facility] of [address], [address] [place] [address] [employer] Laminating Operator: Holden Mathur MDLymphocytes/100 WBC (Bld)29.6 %NormalQuest DiagnosticsComment on above:Performed By: #### 69585, 63, 05104, 50990 #### [facility] of [address] [address] [employer] Lamin[employer] Operator: Holden Mathur MDMCH (RBC) [Entitic mass]27.6 ftGbwrad10.0-33.0 [facility] DiagnosticsComment on above:Performed By: #### 31965, 6399, 67373, 24331 #### [facility] of [address] [address] [employer] Lamin[employer] Operator: Holden Mathur MDMCHC (RBC) [Mass/Vol]33.5 g/rJQvvzvq54.0-36.0 [facility] DiagnosticsComment on above:Performed By: #### 81540, 63, 64028, 62632 #### [facility] of [address] [address] [place] [address] [employer] Lamin[employer] Operator: Holden Mathur MDMCV (RBC) [Entitic vol]82.4 gMOgixgy73.0-100.0 [facility] DiagnosticsComment on above:Performed By: #### 42002, 6399, 48635, 64011 #### [facility] of [address], [address] [place] [address] [employer] Laminating Operator: Holden Mathur MDMonocytes (Bld) [#/Vol]0.459 10*3/uLNormal 200-950Quest DiagnosticsComment on above:Performed By: #### 87503, 6399, 22192, 51362 #### [facility] of [address], [address] [place] [address] [employer]aminating Operator: Holden Mathur MDMonocytes/100 WBC (Bld)7.4 %NormalQuest DiagnosticsComment on above:Performed By: #### 05767, 6399, 85083, 76906 #### [facility] of [address], [address] [place] [address] [employer] Laminating Operator: Holden Mathur MDNeutrophils (Bld) [#/Vol]3.745 10*3/uLNormal 1500-7800Quest DiagnosticsComment on above:Performed By: #### 61680, 6399, 26232, 50474 #### [facility] of [address], [address] [place] [address] [employer] Laminating Operator: Holden Mathur MDNeutrophils/100 WBC (Bld)60.4 %NormalQuest DiagnosticsComment on above:Performed By: #### 85850, 6399, 73100, 51140 #### [facility] of [address], [address] [place] [address] [employer]aminating Operator: Holden Mathur MDPlatelet mean volume (Bld) [Entitic vol]10.0 fLNormal7.5-12.5Quest DiagnosticsComment on above:Performed By: #### 13296, 6399, 35530, 44928 #### [facility] of [address], [address] [address] [employer]amin[employer] Operator: Holden Colin ([facility]) [#/Vol]303 10*3/uLNormal 140-400Quest DiagnosticsComment on above:Performed By: #### 46746, 6399, 29555, 56210 #### [facility] of [address], [address] [place] [address] [employer] Laminating Operator: Holden Mathur [facility] ([facility]) [#/Vol]4.78 10*6/uLNormal3.80-5.10 [facility] DiagnosticsComment on above:Performed By: #### 91432, 6399, 38557, 66988 #### [facility] of [address] [address] [address] , [address] [place] [address] [employer] Laminating Operator: Holden Mathur MDBRUNSW[facility] ([facility]) [#/Vol]6.2 10*3/uLNormal3.8-10.8 [facility] DiagnosticsComment on above:Performed By: #### 69844, 6399, 49204, 38055 #### [facility] of [address] , [address] [place] [address] [employer] Laminating Operator: Holden GUTIERREZ AUTHORIZATIONon 63-83-2566DFREIX CONTACT: YADI ToddQuest DiagnosticsComment on above:Performed By: #### 46492, 6399, 01014, 90820 #### [facility] of [address] [address] [address] , [address] [place] [address] [employer] Laminating Operator: Holden HARTMENTNormalQuest DiagnosticsComment on above:Result Comment: Please have the ordering physician or his or her authorized telephone services sales representative sign a copy of this report and promptly return it by faxing it to: [phone] or by returning the form to your packing floor worker.Performed By: #### 34919, 6399, 85733, 96923 #### [facility] of [address] [address] [address] , [address] [place] [address] [employer] Laminating Operator: Holden Mathur MDREPORT ALWAYS MESSAGE SIGNATURENormalQuest DiagnosticsComment on above:Result Comment: The laboratory testing on this patient was verbally requested or confirmed by the ordering physician or his or her authorized telephone services sales representative after contact with an employee of [employer]. Federal regulations require that we maintain on file written authorization for all laboratory testing. Accordingly we are asking that the ordering physician or his or her authorized telephone services sales representative sign a copy of this report and promptly return it to the client specialist. Signature: Performed By: #### 84154, 6399, 65871, 96256 #### [facility] [address], [address] [place] [address] [employer]aminating Operator: Holden Mathur MDTEST CODE:[id number] Diagnostics Comment on above:Performed By: #### 33627, 6399, 17905, 24722 #### [facility] [place] [address] [employer] Operator: Holden Mathur MDTEST NAME:TSH W/REFLEX TO XX7XsqwvzFjjkn DiagnosticsComment on above:Performed By: #### 30956, 6399, 00288, 29412 #### [facility] [place] [address] [employer]amin[employer] Operator: Holden Mathur MDKINDR[facility] W/REFLEX TO FT4on 05-13-4581NTE W/REFLEX TO FT41.13 mIU/LNormalQuest DiagnosticsComment on above:Result Comment: Reference Range > or = 20 Years 0.40-4.50 Ranges First trimester 0.26-2.66 Second trimester 0.55-2.73 Third trimester 0.43-2.91Performed By: #### 03959, 6399, 27353, 46140 #### [facility] [address], [address] [place] [address] [employer]aminating Operator: Holden Mathur MDVITAMIN D,25-OH,TOTAL,IAon 89-26-9032KBMWPRT D,25-OH,TOTAL,IA56 ng/hUIyprmq84-542Odlwl DiagnosticsComment on above:Result Comment: Vitamin D Status 25-OH Vitamin D: Deficiency: <20 ng/mL Insufficiency: 20 - 29 ng/mL Optimal: > or = 30 ng/mL For 25-OH Vitamin D testing on patients on D2-supplementation and patients for whom quantitation of D2 and D3 fractions is required, the QuestAssureD(TM) 25-OH VIT D, (D2,D3), LC/MS/MS is recommended: order code 26002 (patients >2yrs). See Note 1 Note 1 For additional information, please refer to http://education.[employer]/faq/CST887 (This link is being provided for informational/ educational purposes only.)Performed By: #### 89979, 6399, 47958, 52268 #### [facility] [address], [address] [place] [address] [employer] Operator: Holden Mathur MDCOVID-19 Lab Corpon 16-77-8097BJYH-CoV-2 (COVID-19) RNA SARAH+probe Ql (Unsp spec)Not detectedNormalNot DetectedParkview Health Bryan HospitalComment on above:Order Comment: Healthcare Worker?: N Result Comment: This nucleic acid amplification test was developed and its performance characteristics determined by [employer]. Nucleic acid amplification tests include RT- PCR [...] detected) result in this assay. PERFORMED BY: [place] [address] [place] [address] PATHOLOGIST TALKBACK HOST JADE TOMLINSON M.D.Performed By: #### CORONAVIRUS #### [facility] , Vital Signs Date TimeVital SignValuePerforming IuhhrmldiIlenazsv36-99-8812 09:00-0400Body cyosxeonhgf14.3 [degF]Lashonda Kastel DPM Work Phone: [facility]10-20-2025 09:00-0400Diastolic blood icmxfmyd14 mm[Hg]Lashonda Kastel DPM Work Phone: [facility]10-20-2025 09:00-0400Heart rate 96 /minStephanie Kastel DPM Work Phone: [facility] [employer] Hlvpqi17-33-9409 09:00-0400Systolic blood jfvorewx094 mm[Hg]Lashonda Kastel DPM Work Phone: [facility]10-13-2025 08:27-0400Body zoqnpvxajik23.3 [degF]Lashonda Kastel DPM Work Phone: [facility]10-13-2025 08:27-0400Diastolic blood ubcppdbo23 mm[Hg]Lashonda Kastel DPM Work Phone: [facility] CenterAito BV Ywayxk25-98-2366 08:27-0400Heart rate 83 /minStephanie Kastel DPM Work Phone: [facility] [facility] 08:27-0400Systolic blood yxckdpoz181 mm[Hg]Lashonda Kastel DPM Work Phone: [facility]10-03-2025 08:26-0400Body jipagv963.9 Ju Ortega MD Work Phone: [facility] Enicqc86-19-6158 08:26-0400Body mass index (BMI) [Ratio]37.79 kg/e2Mfbubcviolet Ortega MD Work Phone: [facility]10-03-2025 08:26-0400Body ybldne97.72 kgAny Ortega MD Work Phone: [facility]09-08-2025 08:13-0400Body vhiijsbpzdd74.4 [degF]Lashonda Kastel DPM Work Phone: [facility] Cfcyqj12-07-9756 08:13-0400Diastolic blood bfffbehv44 mm[Hg]Lashonda Kastel DPM Work Phone: [facility]09-08-2025 08:13-0400Heart rate 92 /minStephanie Kastel DPM Work Phone: [facility]09-08-2025 08:13-0400Systolic blood gazdfrzf266 mm[Hg]Lashonda Kastel DPM Work Phone: [facility]09-05-2025 09:29-0400Body .9 Ju Ortega MD Work Phone: [facility]09-05-2025 09:29-0400Body mass index (BMI) [Ratio]37.79 kg/y4IwtujcAny Ortega MD Work Phone: [facility]09-05-2025 09:29-0400Body bdurjw52.72 kgThviolet Ortega MD Work Phone: [facility]09-02-2025 11:19-0400Body mass index (BMI) [Ratio]37.79 kg/f2QqbfekIqra Donovan GLASS TECHNOLOGIST-SCREEN PRINTING EQUIPMENT SETTER Work Phone: [facility]09-02-2025 11:19-0400Body gixmjlcchym46.81 [degF]Iqra Donovan GLASS TECHNOLOGIST-SCREEN PRINTING EQUIPMENT SETTER Work Phone: [facility] Cnntsy77-63-7120 11:19-0400Body sgraip62.72 kgIqra Donovan GLASS TECHNOLOGIST-SCREEN PRINTING EQUIPMENT SETTER Work Phone: [facility] Plbbhb57-73-5896 11:19-0400Diastolic blood dxuhrvll25 mm[Hg]Iqra Donovan GLASS TECHNOLOGIST-SCREEN PRINTING EQUIPMENT SETTER Work Phone: [facility] [facility] Etkncj41-43-4687 11:19-0400Heart rate 98 /minIqra Donovan GLASS TECHNOLOGIST-SCREEN PRINTING EQUIPMENT SETTER Work Phone: [facility] Ztouuk46-72-0625 11:19-0400 Respiratory rate17 /minIqra Donovan GLASS TECHNOLOGIST-SCREEN PRINTING EQUIPMENT SETTER Work Phone: [facility] Gudybj89-66-4133 11:19-7110CrR3% (BldA) [Mass fraction]100 %Iqra Donovan GLASS TECHNOLOGIST-SCREEN PRINTING EQUIPMENT SETTER Work Phone: [facility] Olectr45-42-3618 11:19-0400Systolic blood txwhrdmo954 mm[Hg]Iqra Donovan GLASS TECHNOLOGIST-SCREEN PRINTING EQUIPMENT SETTER Work Phone: [facility] Xraetf82-44-6173 11:25-0400Body boxuys896.9 Jason Bhatt GLASS TECHNOLOGIST-SCREEN PRINTING EQUIPMENT SETTER Work Phone: [facility] Dqqzlp50-09-0117 11:25-0400Body mass index (BMI) [Ratio]37.79 kg/m2Mary Lou Bhatt GLASS TECHNOLOGIST-SCREEN PRINTING EQUIPMENT SETTER Work Phone: [facility] Vmbfuy16-13-1613 11:25-0400Body .01 [degF]Mary Lou Bhatt GLASS TECHNOLOGIST-SCREEN PRINTING EQUIPMENT SETTER Work Phone: [facility] Mjhkbh16-66-3407 11:25-0400Body axupkz93.72 kgMary Lou Bhatt GLASS TECHNOLOGIST-SCREEN PRINTING EQUIPMENT SETTER Work Phone: [facility] Fqzgxw58-64-6418 11:25-0400Diastolic blood yelrhvnk29 mm[Hg]Mary Lou Bhatt GLASS TECHNOLOGIST-SCREEN PRINTING EQUIPMENT SETTER Work Phone: [facility]08-14-2025 11:25-0400Heart rate 94 /Arron Bhatt GLASS TECHNOLOGIST-SCREEN PRINTING EQUIPMENT SETTER Work Phone: [facility]08-14-2025 11:25-0400 Respiratory rate16 /Arron Bhatt GLASS TECHNOLOGIST-SCREEN PRINTING EQUIPMENT SETTER Work Phone: [facility]08-14-2025 11:25-4751YeV1% (BldA) [Mass fraction]98 %Mary Lou Bhatt GLASS TECHNOLOGIST-SCREEN PRINTING EQUIPMENT SETTER Work Phone: [facility]08-14-2025 11:25-0400Systolic blood eaopeymd725 mm[Hg]Mary Lou Bhatt GLASS TECHNOLOGIST-SCREEN PRINTING EQUIPMENT SETTER Work Phone: [facility]08-12-2025 14:07-0400Body .[address] [place], [place] 6096008-12-2025 14:07-0400Body mass index (BMI) [Ratio]37.79 kg/m2Bph [address] [place], [place] 6096008-12-2025 14:07-0400Body .[address] [place], [place] 6096004-14-2025 15:02-0400Body qmuglw926.9 Mk Arnold MD Work Phone: [facility]04-14-2025 15:02-0400Body mass index (BMI) [Ratio]40.43 kg/x5GqepmMara Arnold MD Work Phone: [facility]04-14-2025 15:02-0400Body amukum59.07 Jovi Arnold MD Work Phone: [facility]03-20-2025 15:36-0400Body apoitn420.9 Brent Ortiz MD Work Phone: 1(282)161-[address] [place], [place] 6096003-20-2025 15:36-0400Body mass index (BMI) [Ratio]40.46 kg/m2Jessy Ortiz MD Work Phone: 6(248)341-[address] [place], [place] 6096003-20-2025 15:36-0400Body yvvfrj37.07 kgJessy Ortiz MD Work Phone: 1(497)355-[address] [place], [place] 6096003-20-2025 15:36-0400Diastolic blood awktupdt37 mm[Hg]Jessy Ortiz MD Work Phone: 1(401)912-[address] [place], [place] 6096003-20-2025 15:36-0400Heart rate 92 /minSyed Diana ZEE Work Phone: 1(034)716-[address] [place], [place] 6096003-20-2025 15:36-0400Systolic blood lpogdvgi806 mm[Hg]Jessy Ortiz MD Work Phone: 1(035)177-[address] [place], [place] 6096003-17-2025 16:32-0400Body kvwres584.9 Mk Arnold MD Work Phone: [facility]03-17-2025 16:32-0400Body mass index (BMI) [Ratio]41.41 kg/e1FlczhMara Arnold MD Work Phone: [facility]03-17-2025 16:32-0400Body uvsuem80.34 Jovi Arnold MD Work Phone: [facility]03-17-2025 12:59-0400Body dgdlun150.9 cmPhong Mcfarlane MD Work Phone: [facility]03-17-2025 12:59-0400Body mass index (BMI) [Ratio]41.55 kg/m2Phong Mcfarlane MD Work Phone: [facility]03-17-2025 12:59-0400Body euxauf15.7 kgPhong Mcfarlane MD Work Phone: [facility]03-17-2025 12:59-0400Diastolic blood pkfaabbs82 mm[Hg]Phong Mcfarlane MD Work Phone: [facility]03-17-2025 12:59-0400Systolic blood rhtrwdoa739 mm[Hg]Phong Mcfarlane MD Work Phone: [facility]02-11-2025 09:00-0500Body mass index (BMI) [Ratio]42.29 kg/y2Eahynsabra Guadalupe DO Work Phone: [facility] CenterLweecynajm01-31-7627 09:00-0500Body fixjef892.52 kgCoresabra Novao Work Phone: [facility] CenterYzgzxksdvj04-83-6426 09:00-0500Diastolic blood mm[Hg]Rao Novao DO Work Phone: [facility] CenterDfzooazbse84-01-7342 09:00-0500Systolic blood cznezhwv971 mm[Hg]Rao Guadalupe DO Work Phone: [facility] CenterKmrkzflrna96-44-9899 13:10-0500Diastolic blood bjsfhpba07 mm[Hg]Montrell Timmons GLASS TECHNOLOGIST-SCREEN PRINTING EQUIPMENT SETTER Work Phone: [facility]02-07-2025 13:10-0500Heart rate 80 /minBrvannessa Timmons GLASS TECHNOLOGIST-SCREEN PRINTING EQUIPMENT SETTER Work Phone: [facility]02-07-2025 13:10-0500Systolic blood ddowlicr560 mm[Hg]Montrell Timmons GLASS TECHNOLOGIST-SCREEN PRINTING EQUIPMENT SETTER Work Phone: [facility]02-07-2025 10:29-0500Body afacnd458.9 cmBrvannessa Iain GLASS TECHNOLOGIST-SCREEN PRINTING EQUIPMENT SETTER Work Phone: [facility]02-07-2025 10:29-0500Body mass index (BMI) [Ratio]41.8 kg/d1Rucjiyvannessa Timmons GLASS TECHNOLOGIST-SCREEN PRINTING EQUIPMENT SETTER Work Phone: [facility]02-07-2025 10:29-0500Body vstzirghrey30.9 [degF]Montrell Iain GLASS TECHNOLOGIST-SCREEN PRINTING EQUIPMENT SETTER Work Phone: [facility]02-07-2025 10:29-0500Body uimkbu275.34 kgBrvannessa Iain GLASS TECHNOLOGIST-SCREEN PRINTING EQUIPMENT SETTER Work Phone: [facility]02-07-2025 10:29-4575TrJ9% (BldA) [Mass fraction]97 %Montrell Timmons GLASS TECHNOLOGIST-SCREEN PRINTING EQUIPMENT SETTER Work Phone: [facility]01-10-2025 09:22-0500Body .9 cmStephanie Kastel DPM Work Phone: [facility] Xfizgu27-91-3026 09:22-0500Body mass index (BMI) [Ratio]42.14 kg/r6Pikhqvgpm Kastel DPM Work Phone: [facility] Hitxlo25-96-9815 09:22-0500Body zgfvvkrasne72.5 [degF]Lashonda Kastel DPM Work Phone: [facility] Bmpgwn67-53-2822 09:22-0500Body rswwij388.15 kgStephanie Kastel DPM Work Phone: [facility] Vxkfou97-76-3119 09:22-0500Diastolic blood ptywxlct62 mm[Hg]Lashonda Kastel DPM Work Phone: [facility] Ovnwdj23-63-2110 09:22-0500Heart rate 93 /minStephanie Kastel DPM Work Phone: [facility] Tplsve83-43-3656 09:22-0500Systolic blood kortkxmh186 mm[Hg]Lashonda Kastel DPM Work Phone: [facility]12-31-2024 15:28-0500Body .6 [degF]Lashonda Kastel DPM Work Phone: [facility] Jxenwu85-99-1609 15:28-0500Diastolic blood quippynt91 mm[Hg]Lashonda Kastel DPM Work Phone: [facility] [employer] Ultlhi17-40-0448 15:28-0500Heart rate 77 /minStephanie Kastel DPM Work Phone: [facility]12-31-2024 15:28-0500Systolic blood oxjwncog180 mm[Hg]Lashonda Kastel DPM Work Phone: [facility]12-05-2024 08:54-0500Body rllhgu344.9 Mk Arnold MD Work Phone: [facility]12-05-2024 08:54-0500Body mass index (BMI) [Ratio]42.14 kg/l7PtsuyMara Arnold MD Work Phone: [facility]12-05-2024 08:54-0500Body .15 kgMara Arnold MD Work Phone: [facility]11-22-2024 10:50-0500Body xknfejytigu40.3 [degF]Lashonda Kastel DPM Work Phone: [facility]11-22-2024 10:50-0500Diastolic blood kkgbepsw41 mm[Hg]Lashonda Kastel DPM Work Phone: [facility]11-22-2024 10:50-0500Heart rate 86 /minStephanie Kastel DPM Work Phone: [facility]11-22-2024 10:50-0500Systolic blood lykbvedu461 mm[Hg]Lashonda Kastel DPM Work Phone: [facility]11-14-2024 10:15-0500Body nvihbh642.[address] [place], [place] 7748211-14-2024 10:15-0500Body mass index (BMI) [Ratio]41.57 kg/q5Razwq[address]11-14-2024 10:15-0500Body ixxfea92.[address] [place], [place] 7748210-21-2024 11:15-0400Body mass index (BMI) [Ratio]43.08 kg/q4YoitaRao Guadalupe DO Work Phone: [facility] CenterYshedomkzv00-31-7381 11:15-0400Body xooibm606.42 kgCorey Anayeli DO Work Phone: [facility] CenterEairgbumqs20-39-5245 11:15-0400Diastolic blood yzwghawa06 mm[Hg]Rao Anayeli DO Work Phone: [facility] CenterClghchagfd03-69-3755 11:15-0400Systolic blood uhodnhtm510 mm[Hg]Rao Novao DO Work Phone: [facility] CenterBfjvpdcpjx97-19-5800 15:42-0400Body idzsvl668.9 cmPati Parker MD Work Phone: [facility]10-14-2024 15:42-0400Body mass index (BMI) [Ratio]42.93 kg/m4BiglprPati Parker MD Work Phone: [facility]10-14-2024 15:42-0400Body ndpaey594.06 kgPati Parker MD Work Phone: [facility]10-14-2024 15:42-0400Diastolic blood eydugpdk28 mm[Hg]Pati Parker MD Work Phone: [facility]10-14-2024 15:42-0400Heart rate 77 /minPati Parker MD Work Phone: [facility]10-14-2024 15:42-0400Systolic blood sauyeddl403 mm[Hg]Pati Parker MD Work Phone: [facility]09-12-2024 10:43-0400Body rwyxjj437.9 cmMontrell Timmons GLASS TECHNOLOGIST-SCREEN PRINTING EQUIPMENT SETTER Work Phone: [facility]09-12-2024 10:43-0400Body mass index (BMI) [Ratio]41.91 kg/u0ClvhoaMontrell Timmons GLASS TECHNOLOGIST-SCREEN PRINTING EQUIPMENT SETTER Work Phone: [facility]09-12-2024 10:43-0400Body tmcurnomndw67.29 [degF]Montrell Iain GLASS TECHNOLOGIST-SCREEN PRINTING EQUIPMENT SETTER Work Phone: [facility] Isnhay02-99-6658 10:43-0400Body zmaqie374.61 kgMontrell Timmons APRN-SCREEN PRINTING EQUIPMENT SETTER Work Phone: [facility] Orcvjq17-79-0891 10:43-0400Diastolic blood xlulwazo44 mm[Hg]Montrell Timmons APRN-SCREEN PRINTING EQUIPMENT SETTER Work Phone: [facility] Qyuptp02-16-5232 10:43-0400Heart rate 84 /minMontrell Timmons GLASS TECHNOLOGIST-SCREEN PRINTING EQUIPMENT SETTER Work Phone: [facility] Nqyqlb95-74-1691 10:43-0400 Respiratory rate18 /minMontrell Timmons APRN-SCREEN PRINTING EQUIPMENT SETTER Work Phone: [facility] Gnmhax88-96-5675 10:43-7661NtF3% (BldA) [Mass fraction]99 %Montrell Timmons APRN-SCREEN PRINTING EQUIPMENT SETTER Work Phone: [facility]09-12-2024 10:43-0400Systolic blood utfogzpy092 mm[Hg]Montrell Timmons APRN-SCREEN PRINTING EQUIPMENT SETTER Work Phone: [facility] Uyjdjl40-89-8520 14:29-0400Body mdzwdo607.9 cmLorie Johnson APRN-SCREEN PRINTING EQUIPMENT SETTER Work Phone: [facility] Emxbyc63-00-9997 14:29-0400Body mass index (BMI) [Ratio]42.14 kg/r5CgykjqLorie Johnson APRN-SCREEN PRINTING EQUIPMENT SETTER Work Phone: [facility] Rtqcew49-14-5979 14:29-0400Body .15 kgLorie Johnson GLASS TECHNOLOGIST-SCREEN PRINTING EQUIPMENT SETTER Work Phone: [facility] Bfpkti42-28-6466 14:29-0400Diastolic blood zqyhihnt02 mm[Hg]Lorie Johnson GLASS TECHNOLOGIST-SCREEN PRINTING EQUIPMENT SETTER Work Phone: [facility] Rbbowp07-78-0590 14:29-0400Heart rate 86 /minKelsey Cutcher GLASS TECHNOLOGIST-SCREEN PRINTING EQUIPMENT SETTER Work Phone: [facility]07-22-2024 14:29-7260XbF3% (BldA) [Mass fraction]95 %Lorie Johnson APRN-SCREEN PRINTING EQUIPMENT SETTER Work Phone: [facility]07-22-2024 14:29-0400Systolic blood adytjxxe067 mm[Hg]Lorie Johnson APRN-SCREEN PRINTING EQUIPMENT SETTER Work Phone: [facility]06-21-2024 13:45-0400Diastolic blood zlbeubpm75 mm[Hg][address]06-21-2024 13:45-0400Heart rate87 /minTth [address]06-21-2024 13:45-0400Systolic blood ylurcdfk718 mm[Hg][address]06-12-2024 14:56-0400Diastolic blood ycnsghau66 mm[Hg][address]06-12-2024 14:56-0400Heart rate81 /minTt[address]06-12-2024 14:56-0400Respiratory rate 16 /minTth [address]06-12-2024 14:56-0400Systolic blood mbzxflaf003 mm[Hg][address]05-30-2024 19:29-0400Body qzydpo837.[address]05-30-2024 19:29-0400Body mass index (BMI) [Ratio]41.57 kg/m[address]05-30-2024 19:29-0400Body zjegwv75.[address]05-28-2024 15:02-0400Body uzhbhc147.9 cmLorie Johnson APRN-SCREEN PRINTING EQUIPMENT SETTER Work Phone: [facility]05-28-2024 15:02-0400Body mass index (BMI) [Ratio]44.35 kg/c5LmzxhtLorie Johnson APRN-SCREEN PRINTING EQUIPMENT SETTER Work Phone: [facility]05-28-2024 15:02-0400Body nyjpwe475.41 kgLorie Johnson GLASS TECHNOLOGIST-SCREEN PRINTING EQUIPMENT SETTER Work Phone: [phone]Comment [facility] above: 08-28-2023 15:02-0400Diastolic blood zwwoqcfe43 mm[Hg]Lorie Johnson GLASS TECHNOLOGIST-SCREEN PRINTING EQUIPMENT SETTER Work Phone: [phone]05-28-2024 15:02-0400Heart rate 102 /minLorie Johnson GLASS TECHNOLOGIST-SCREEN PRINTING EQUIPMENT SETTER Work Phone: [phone]05-28-2024 15:02-8687VmH2% (BldA) [Mass fraction]97 %Lorie Johnson GLASS TECHNOLOGIST-SCREEN PRINTING EQUIPMENT SETTER Work Phone: [phone]05-28-2024 15:02-0400Systolic blood vomhpwhb822 mm[Hg]Lorie Johnson GLASS TECHNOLOGIST-SCREEN PRINTING EQUIPMENT SETTER Work Phone: [phone]02-12-2024 10:59-0500Body mass index (BMI) [Ratio]37.94 kg/n1UhbkvqhcRoman Sears MD Work Phone: [phone]02-12-2024 10:59-0500Body fohnlg87.08 kgRoman Sears MD Work Phone: 1(198)[address] [place], [place] 7547502-12-2024 10:59-0500Diastolic blood yeaxavbs57 mm[Hg]Roman Sears MD Work Phone: 1(002)[address] [place], [place] 7547502-12-2024 10:59-0500Heart rate 87 /minRoman Sears MD Work Phone: 1(738)[address] [place], [place] 7547502-12-2024 10:59-0500Systolic blood ynfuyulz546 mm[Hg]Roman Sears MD Work Phone: 1(600)[address] [place], [place] 7547512-22-2022 16:07-0500Body hzaqki74.1944 kgYADI YO .[facility] HospitalComment on above:Performed By: #### AFPMAT #### [facility] [address] [address] [address] Yassine Zarate Encounters Encounter DateEncounter TypeCare ProviderFacilityStart: 01-19-2025 End: 71-56-1892agvlnqtsweXZSQGZNFJ [facility]: 01-19-2025 End: 24-06-2717Aqrmax follow up visit related to original pxLashonda Rosstel DPM Work Phone: [facility] PodiatryComment on above: Onychocryptosis (Primary Dx); Left foot painStart: 00-84-8056bpeuddjlghAVJSWWParkview Health [facility] Start: 01-12-2025 End: 99-58-9707Ciewmmt encounter procedureStepkenney Rosstel DPM Work Phone: [facility] PodiatryComment on above: Onychocryptosis (Primary Dx); Left foot painStart: 01-12-2025 End: 80-57-8577unannnfrdhKNJQVQMXJ Onel [facility] Hospitaltart: 01-02-2025 End: 86-22-2347Jjinom outpatient visit 15 Mario Ortega MD Work Phone: [facility] Spine SurgeonsComment on above:Closed fracture of left ankle with routine healing (Primary Dx); Closed fracture of left ankle, initial encounterStart: 01-02-2025 End: 48-64-3931shoacouxgbCBVPXSSanta [facility] Start: 12-08-2024 End: 95-25-9488Ciqcev outpatient visit 15 minutesStjoie Onel Rosstel DPM Work Phone: [facility] PodiatryComment on above: Onychocryptosis (Primary Dx); Left foot painStart: 12-08-2024 End: 66-76-9142sragvmzopiOASTIIJQLSt. Anthony's Hospitaltart: 12-05-2024 End: 45-34-7181tdoyeeofuuPGEOHARegional Medical Center [facility] Start: 12-05-2024 End: 36-88-3624Qxgrzh outpatient new 45 minutesAny Ortega MD Work Phone: [facility] Spine SurgeonsComment on above:Closed fracture of left ankle, initial encounter (Primary Dx)Start: 12-04-2024 End: 19-93-3259Tgenkkjpc encounterOrders Support User [facility] - Sleep DisordersComment on above: Sleep Lab (PSG Order)Start: 12-03-2024 End: 68-78-5572Lneycm OnlyLorie Johnson GLASS TECHNOLOGIST-SCREEN PRINTING EQUIPMENT SETTER Work Phone: [facility]/Sleep MedicineComment on above:Sleep-related breathing disorder (Primary Dx)Start: 12-02-2024 End: 79-94-7265Uehagc-up encounterLorie Johnson GLASS TECHNOLOGIST-SCREEN PRINTING EQUIPMENT SETTER Work Phone: [facility]/Sleep MedicineComment on above:Home sleep studyStart: 12-02-2024 End: 24-52-2245Ungpkevrv encounterShauna Peacock MD Work Phone: [facility]/Sleep MedicineComment on above:KESHIA (obstructive sleep apnea) (Primary Dx)Start: 12-02-2024 End: 97-83-6816Rasljw outpatient visit 15 minutesMonica [facility] Gladwin GLASS TECHNOLOGIST-SCREEN PRINTING EQUIPMENT SETTER Work Phone: [facility] OregonComment on above:Missed menses (Primary Dx); Closed fracture of left ankle, initial encounterStart: 12-02-2024 End: 53-34-8149xlsjseehzzPPEEMAWorcester Recovery Center and Hospital Ambulatory PPGStart: 11-13-2024 End: 62-33-7973Btallf outpatient visit 25 minutesMary Lou Bhatt GLASS TECHNOLOGIST-SCREEN PRINTING EQUIPMENT SETTER Work Phone: [facility] OregonComment on above:Strep pharyngitis (Primary Dx); Sore throat; Encounter for screening for COVID-19Start: 11-13-2024 End: 99-86-2653bzfhgxhbkaGADFTZBroadway Community Hospital Ambulatory PPGStart: 11-11-2024 End: 14-97-7360Ovhxzgxw SupportCrockett Hospital [facility] [address] [place], [place] [address]Sleep Disorders CenterComment on above:KESHIA (obstructive sleep apnea)Start: 10-30-2024 End: 92-42-3340Nnoaph OnlyJamesjose Christensen [facility] Department of [facility] Rutan HospitalComment on above:Abnormal liver enzymes (Primary Dx); Hepatic steatosisStart: 10-29-2024 End: 01-12-7838Myrjqmuex encounterShahla Barrett [facility] Work Phone: [facility] HOSPITALGENETICSComascension borgess hospital on above:Verbal Re-Assessment (Genetic testing result disclosure)Start: 10-25-2024 End: 90-78-4170Vhkrqiqec department patient visitBRNEMOURS [facility] L[facility] Hospitaltart: 10-22-2024 End: 98-97-1351Rxzhyppwd encounterOrders Support User [facility]cribeUpper [facility] Center - Sleep DisordersComment on above: Sleep Lab (HST Order)Start: 10-21-2024 End: 18-21-5887Izxgwvvgwektl procedureSheba Yan CMAProtestant Deaconess Hospital Physicians Pulmonary/Sleep MedicineStart: 10-21-2024 End: 36-53-0216Euseixqxc encounterWeviral Taylor [facility] Pulmonary/Sleep MedicineStart: 10-21-2024 End: 08-82-0287Kcmsfu outpatient visit 15 Ladi PATELSCREEN PRINTING EQUIPMENT SETTER Work Phone: [facility] Pulmonary/Sleep MedicineComment on above:KESHIA (obstructive sleep apnea) (Primary Dx); CPAP use counseling; BMI 37.0-37.9, adultStart: 10-21-2024 End: 26-50-0809dcvmvmwscsOYKEGA Lina [facility] Hospitaltart: 10-16-2024 End: 53-52-3270Enueyyho SupportTaylmikel Christopher [facility] Work Phone: [facility] HOSPITALGENETICSComascension borgess hospital on above:Family history of breast cancer (Primary Dx) Start: 09-30-2024 End: 94-82-6849Keemow OnlyMontrell Woods Iain GLASS TECHNOLOGIST-SCREEN PRINTING EQUIPMENT SETTER Work Phone: [facility] Internal Medicine - Family MedicineComment on above:Encounter for screening mammogram for malignant neoplasm of breast (Primary Dx); Breast cancer screening, high risk patientStart: 09-22-2024 End: 17-59-5243Mrcajcygc encounterKelsandi Ho [facility] Work Phone: [facility] -GENETICSComment on above:GENETICS (CLERICAL)Start: 09-20-2024 End: 62-15-5698lsopljgefaDYRKLL L IAINTrinity Health System Twin City Medical Centertart: 08-09-2024 End: 18-84-5081Dbprpe outpatient visit 25 minutesShjace Interiano MD Work Phone: [facility] Behavioral HealthComment on above:Anxiety disorder, unspecified type (Primary Dx); Recurrent major depressive disorder, in partial remissionStart: 08-09-2024 End: 91-28-2065osdccewipzNESFGLYDickenson Community Hospital Ambulatory PPGStart: 07-14-2024 End: 89-80-9323ngeouubktmVYXTD O SMITHGal[facility] Hospital Ambulatory PPGStart: 07-14-2024 End: 65-52-0372Blyrya outpatient visit 15 minutesMara Arnold MD Work Phone: [facility] Spine SurgeonsComment on above:Carpal tunnel syndrome of right wrist (Primary Dx); Postoperative visit; Cubital tunnel syndrome on rightStart: 07-07-2024 End: 50-86-1194NoyqovZtkz Summer Ortiz MD Work Phone: [phone] [place] [address] Physicians Neurology - SAMANTHA Avitiatart: 07-05-2024 End: 25-79-3308suppfgqvqeIOPCSM [facility] Hospitalt[facility]: 06-24-2024 End: 56-47-5013Znmaydewbf and management of [facility] L[facility] HospitalStart: 06-19-2024 End: 91-92-2895tastmwpbfdWJDQ [facility] Start: 06-19-2024 End: 67-89-6633Muaogy outpatient new 45 minutesSyed Summer Ortiz MD Work Phone: [facility] [place] [facility] Neu[facility] - Jessy Ortiz MDComment on above:Ataxia (Primary Dx); Dizziness; Chronic migraine without aura without status migrainosus, not intractable; Tension headache; Vitamin D deficiency; Hypothyroidism, unspecified typeStart: 06-16-2024 End: 04-63-9972fxiqpietdzRSCDB O [facility] PPGStart: 06-16-2024 End: 58-23-0032Zoxajf follow up visit related to original Al Arnold MD Work Phone: [facility] [place] [facility] Spine SurgeonsComment on above:Carpal tunnel syndrome of right wrist (Primary Dx) Start: 06-16-2024 End: 68-84-7240Nnryrcrpo encounterDigestive Healthcare Consultants Work Phone: [facility] Department of [facility] HospitalStart: 06-16-2024 End: 94-54-1768Ixjmyu outpatient new 45 minutesPhong Mcfarlane MD Work Phone: [facility], A Department of Doctors HospitalComment on above:RUQ pain (Primary Dx); Metabolic dysfunction-associated steatotic liver disease (MASLD); Abnormal liver enzymesStart: 06-16-2024 End: 58-15-9390bzmowpiyojIOIUQS Lina TIMMONSSuburban Community Hospital & [facility] HospitalStart: 06-15-2024 End: 47-68-9647QoqgetBlthbvl Ara Alam MD Work Phone: [facility] Behavioral HealthComment on above:Anxiety disorder, unspecified type; Recurrent major depressive disorder, in partial remission (CMS-HCC)Start: 06-13-2024 End: 45-86-1248Gtswlzkps encounterMita Mae RN Work Phone: [facility] SurgeonsStart: 06-13-2024 End: 92-95-6288wvcxqntqfcJUHGFDTigist Gan [facility] HospitalStart: 06-07-2024 End: 61-50-9225Ohuyax outpatient visit 25 minutesShjace Interiano MD Work Phone: [facility] Behavioral HealthComment on above:Anxiety disorder, unspecified type (Primary Dx); Recurrent major depressive disorder, in partial remission (CMS-HCC)Start: 06-07-2024 End: 41-57-1308iustajbiopGYFVSGQDickenson Community Hospital Ambulatory PPGStart: 06-05-2024 End: 93-96-3335Xbvtmt Mellissa Timmons GLASS TECHNOLOGIST-SCREEN PRINTING EQUIPMENT SETTER Work Phone: [facility] Medicine - Family MedicineComment on above:REHMAN (nonalcoholic steatohepatitis) (Primary Dx) Postoperative pain (Primary Dx); Carpal tunnel syndrome of right wristStart: 06-04-2024 End: 14-30-2234Urvoolxcq encounterNia Files CMAProMedica Physicians Digestive HealthcareComment on above:New PatientStart: 06-02-2024 End: 94-63-5550Gqyrbk Erika Pineda PA-C Work Phone: [facility] Spine SurgeonsComment on above:Postoperative pain (Primary Dx)Start: 05-31-2024 End: 66-56-6749lgjysgidgaAVGIQDTigist Gan [facility] HospitalStart: 05-30-2024 End: 32-32-7794Itwbzzw encounter procedureWMadigan Army Medical Center FibroscanProMedica Physicians Digestive HealthcareStart: 05-30-2024 End: 69-10-0350edgblxmwxxOULQMD L RAUCHProMedica Physicians Digestive Healthcare Comment on above:Hepatic steatosisStart: 05-29-2024 End: 46-58-9170Lqmech Mellissa Timmons GLASS TECHNOLOGIST-SCREEN PRINTING EQUIPMENT SETTER Work Phone: [facility] - Family MedicineComment on above:Impaired fasting glucose (Primary Dx)Start: 05-28-2024 End: 23-44-9349Zdlusf Mellissa Timmons GLASS TECHNOLOGIST-SCREEN PRINTING EQUIPMENT SETTER Work Phone: [facility] - Family MedicineComment on above:Hepatic steatosis (Primary Dx)Start: 05-26-2024 End: 89-47-2445Olmbwg Mellissa Timmons GLASS TECHNOLOGIST-SCREEN PRINTING EQUIPMENT SETTER Work Phone: [facility] - Family MedicineComment on above:Dizziness (Primary Dx); Chronic migraine without aura without status migrainosus, not intractableStart: 05-13-2024 End: 89-55-1818Bdcttu flowsheetCorey Anayeli DO Work Phone: [facility] BCP OBStart: 05-13-2024 End: 99-57-5608Ligflm flowsheetCorey Anayeli DO Work Phone: [facility] BCP OBStart: 05-13-2024 End: 98-28-7046Fbdvzebqx Result EncounterCorey Anayeli DO Work Phone: [facility] External Department UnsolicitedStart: 05-13-2024 End: 38-00-6051dwylxnmwstAOQKJ FAZIONot AvailableStart: 05-13-2024 End: 17-33-7677Ezjdcie encounter procedureCorey Anayeli DO Work Phone: [facility] Work Phone: Start: 05-13-2024 End: 78-53-9946Zhoyvgws preventive med est patient 18-39 yrsCorey Anayeli DO Work Phone: [facility] OBComment on above:Well woman exam with routine gynecological exam; control counselingStart: 05-10-2024 End: 51-39-5626Vhrhwa outpatient visit 25 minutesShjace Interiano MD Work Phone: [facility] Behavioral HealthComment on above:Anxiety disorder, unspecified type (Primary Dx); Recurrent major depressive disorder, in partial remission ([facility]-HCC)Start: 05-10-2024 End: 54-14-3755ktblwwfzftQOEGVVLWaltham Hospital Ambulatory PPGStart: 05-09-2024 End: 65-05-0525Ylupcz outpatient visit 25 minutesMontrell Timmons GLASS TECHNOLOGIST-SCREEN PRINTING EQUIPMENT SETTER Work Phone: [facility] Internal Medicine - Family MedicineComment on above:Pre-op evaluation (Primary Dx); KESHIA (obstructive sleep apnea); Class 3 severe obesity due to excess calories with serious comorbidity and body mass index (BMI) of40.0 to 44.9 in adult ([facility]); Mixed anxiety and depressive disorder; Carpal tunnel syndrome of right wrist; Near syncope; Elevated LFTsStart: 05-09-2024 End: 88-44-3298Tifdqgtprcmhs examination [facility] hospitalMontrell Timmons APRN-SCREEN PRINTING EQUIPMENT SETTER Work Phone: [facility] Work Phone: Start: 05-09-2024 End: 59-89-4989kzcfojkknbTVCBPOBroadway Community Hospital Ambulatory PPGStart: 05-01-2024 End: 66-06-2355Balwfc OnlyMontrell Timmons GLASS TECHNOLOGIST-SCREEN PRINTING EQUIPMENT SETTER Work Phone: [facility] - [facility] Hospitaltart: 04-14-2024 End: 95-38-4617jociuwazvqKPPEJTProMedica Flower Hospitaltart: 04-11-2024 End: 22-52-5437Veoogv follow up visit related to original Drew Sylvester DPM Work Phone: [facility] Physicians PodiatryComment on above: Onychocryptosis (Primary Dx); Pain in right foot; Left foot painStart: 04-11-2024 End: 77-71-5050ggjfvxsvgnULBRSSUWaltham Hospital Ambulatory PPGStart: 04-01-2024 End: 91-80-6183Jjsdlbq encounter procedureStepkenney Sylvester DPM Work Phone: [facility] Physicians PodiatryComment on above: Onychocryptosis (Primary Dx); Pain in right foot; Left foot painStart: 04-01-2024 End: 16-39-2884pgpbkbtvehDWDONFDVW D [facility] Hospitaltart: 03-20-2024 End: 87-70-0047Fwhqhr outpatient visit 10 minutesEdelvannessa Woods Iain GLASS TECHNOLOGIST-SCREEN PRINTING EQUIPMENT SETTER Work Phone: [facility] - Family MedicineComment on above:Blurry vision, bilateral (Primary Dx); Chronic migraine without aura without status migrainosus, not intractable; Mixed anxiety and depressive disorder; DizzinessStart: 03-20-2024 End: 34-55-9496tnwkrjzljrDRYISN L RAUCHGalion Hospital Ambulatory PPGStart: 03-13-2024 End: 86-62-4381Jjstvf outpatient visit 15 minutesMari Arora MD Work Phone: [facility] General SurgeryComment on above: Incarcerated ventral hernia (Primary Dx)Start: 03-13-2024 End: 46-99-5712lzjcdrcpunBETF B EUGENEGLEPCommunity Regional Medical Center HospitalStart: 03-06-2024 End: 16-68-1252tnzyiayqyyIVTBO O SMITHGalion Hospital Ambulatory PPGStart: 03-06-2024 End: 56-76-9108Arjnhg outpatient new 45 Renan Arnold MD Work Phone: [facility] Spine SurgeonsComment on above:Bilateral carpal tunnel syndrome (Primary Dx)Start: 02-26-2024 End: 37-20-0932Oqknttosti and management of inpatientTHERESA M EFFLERProGuernsey Memorial Hospital HospitalStart: 02-26-2024 End: 01-38-3374Vekyyotjjf and management of inpatientJOHN B STENGLEPCommunity Regional Medical Center HospitalStart: 02-22-2024 End: 78-35-9602Fsavdc outpatient new 30 minutesLashonda Sylvester DPM Work Phone: [facility] PodiatryComment on above: Onychocryptosis (Primary Dx); Pain in right foot; Left foot painStart: 02-22-2024 End: 63-71-2026szqpwbshmoWXZIGQMMY D [facility] Hospitaltart: 02-14-2024 End: 91-16-0235Jgrpeimas to [facility] Pat Phone Call Provider 3 Rose[facility]art: 02-14-2024 End: 29-06-9099Bsbelonoeb and management of inpatientMONTRELL Parksca [facility] HospitalStart: 02-11-2024 End: 90-92-2659jmnxgesdwhJVCPMiriam De [facility] Hospitaltart: 02-11-2024 End: 87-99-1956Usfwnf consultation new/estab patient 62 Tre Arora MD Work Phone: [facility] General SurgeryComment on above: Incarcerated ventral hernia (Primary Dx)Start: 02-06-2024 End: 57-65-2933ayapomhmreITVCKP L RAUCHProUniversity Hospitals Tri[facility] Medical Centerca [facility] HospitalStart: 01-28-2024 End: 58-07-0883sqejfeoiwjWwcn E-VisitProMedica Urgent Care eVisitComment on above:E-Visit for Sinus InfectionStart: 01-21-2024 End: 07-27-9595Agnyic flowsheetCorey Anayeli DO Work Phone: [facility] BCP OBStart: 01-21-2024 End: 76-80-2624Ampvpu flowsheetCorey Anayeli DO Work Phone: [facility] BCP OBStart: 01-21-2024 End: 59-86-3420qdbuovdaytZBILD FAZIONot AvailableStart: 01-21-2024 End: 81-38-2402Gfdmyk outpatient visit 15 minutesCorey Anayeli DO Work Phone: [facility] BCP OBComment on above:Postop check; Incisional hernia, without obstruction or gangreneStart: 01-14-2024 End: 60-00-7948Zqccfk outpatient new 45 Narendra Parker MD Work Phone: [facility] - [facility]ro[facility]ne[facility] Comment on above:Mixed stress and urge urinary incontinence (Primary Dx); History of fourth degree perineal laceration; Incontinence of feces with fecal urgency; Perineal pain; Urinary frequencyStart: 12-24-2023 End: 86-89-1818Vnymvp OnlyMontrell Timmons GLASS TECHNOLOGIST-SCREEN PRINTING EQUIPMENT SETTER Work Phone: [facility] - Family MedicineStart: 12-18-2023 End: 87-58-7662Kiwzo Thaddeus العراقي [facility]ca Phys[facility] Pel[facility] Health - UrogynecologyStart: 12-13-2023 End: 91-77-2796Egittys encounter statusMontrell Timmons GLASS TECHNOLOGISTMission Bicycle CompanySCREEN PRINTING EQUIPMENT SETTER Work Phone: [facility] [employer] [facility] Work Phone: Start: 12-13-2023 End: 84-25-8790Fdizwsvi preventive med est patient 18-39 yrsMontrell Timmons GLASS TECHNOLOGISTMission Bicycle CompanySCREEN PRINTING EQUIPMENT SETTER Work Phone: [facility] Physicians Internal Medicine - Family MedicineComment on above:Wellness examination (Primary Dx); Other fatigue; Iron deficiency anemia, unspecified iron deficiency anemia type; KESHIA (obstructive sleep apnea); Gastroesophageal reflux disease, unspecified whether esophagitis presentStart: 11-06-2023 End: 31-94-0465wwdkdzpkidQWL RAMEYNot AvailableStart: 10-29-2023 End: 25-25-2705Rlzrvjsxm encounterMontrell Timmons GLASS TECHNOLOGIST-[facility] Work Phone: [facility] Physicians Internal Medicine - Family MedicineStart: 10-25-2023 End: 77-26-4564Pvpyxckcpbbgn procedureWeviral Taylor Physicians Pulmonary/Sleep MedicineStart: 10-22-2023 End: 90-31-5547Jbsyda outpatient visit 15 Cristianmaggie Johnson GLASS TECHNOLOGISTMission Bicycle CompanyMARY A. ALLEY HOSPITAL Work Phone: [facility] Pulmonary/Sleep MedicineComment on above:KESHIA (obstructive sleep apnea) (Primary Dx); CPAP use counseling; BMI 40.0-44.9, adult ([facility])Start: 10-22-2023 End: 65-50-8588Bzsjabzvsxfgd procedureWeviral Taylor Physicians Pulmonary/Sleep MedicineStart: 10-01-2023 End: 32-77-8145gucpidjskbCUUHX FAZIONot AvailableStart: 09-25-2023 End: 58-98-4145Ndxrdjvrc encounterDarcy Downing LPNPLafourche, St. Charles and [place]re[place] parishes Physicians Pulmonary/Sleep MedicineStart: 09-21-2023 End: 29-06-6760Oxunzuclatbyp procedureMarcella Almeida RNMaternal- Medicine at [facility] Centertart: 09-21-2023 End: 34-48-7308ucizpybfkkSeu Mfm Iey2Julyfuww-Yfril Medicine at [facility] HospitalComment on above:Obesity affecting in second trimester, unspecified obesity typeStart: 09-19-2023 End: 31-38-6188ukfumxztlgZIJPO FAZIONot AvailableStart: 09-12-2023 End: 41-18-4989cqawngmforXni Mfm Rlz6Tvxelcwk-Ihoez Medicine at [facility] HospitalComment on above:Obesity affecting in second trimester, unspecified obesity typeStart: 09-12-2023 End: 95-50-6304Juhratthlbcmg procedureMarcella Almeida RNMaternal- Medicine at [facility] HospitalComment on above:Obesity affecting in second trimester, unspecified obesity type (Primary Dx)Start: 09-04-2023 End: 75-55-4582Gzwkwsmgn encounterLyn Rothman MD Work Phone: [facility] Physicians Pulmonary/Sleep MedicineStart: 09-03-2023 End: 90-36-6869xynjpwtmkoMBKPG FAZIONot AvailableStart: 08-30-2023 End: 26-90-2922Tppgftvr SupportCrockett Hospital [facility] [address] [place] [address] -Sleep Disorders CenterComment on above:Sleep-related breathing disorderStart: 08-29-2023 End: 90-93-4215Zgquqimuu encounterLorie SOLORZANO Work Phone: [facility] - Sleep DisordersComment on above:Sleep Lab (HST)Start: 08-28-2023 End: 29-11-2804sluwfoddktDssb E-VisitProMedica Urgent Care eVisitStart: 08-28-2023 End: 68-48-9955Guwdurj encounter procedurePuct E-VisitProMedica Urgent Care eVisitComment on above:Appointment ReminderStart: 08-28-2023 End: 93-99-2766Gkinkp outpatient new 45 Ladi Johnson GLASS TECHNOLOGIST-SCREEN PRINTING EQUIPMENT SETTER Work Phone: [facility] Pulmonary/Sleep MedicineComment on above:Sleep-related breathing disorder (Primary Dx); BMI 40.0-44.9, adult (CMS-HCC); Chronic fatigue; SnoringStart: 08-28-2023 End: 93-40-6156Noqtqicnr encounterTiara Mccullough CMAProMedica Physicians Pulmonary/Sleep MedicineStart: 08-24-2023 End: 94-81-1412Nvkgerzzx encounterMontrell Timmons APRN-SCREEN PRINTING EQUIPMENT SETTER Work Phone: [facility] Medicine - Family MedicineStart: 08-20-2023 End: 29-44-8708Hetqalxe SupportSuztomeka Durán APRN-SCREEN PRINTING EQUIPMENT SETTER Work Phone: [facility] SecorComment on above:Encounter for laboratory test (Primary Dx)Start: 08-20-2023 End: 60-17-1141Pxtrtjq encounter statusSuyarelis Durán APRN-SCREEN PRINTING EQUIPMENT SETTER Work Phone: [facility] [facility] Work Phone: Start: 08-20-2023 End: 79-65-3388Opldqo outpatient visit 15 minutesAimee Durán APRN-SCREEN PRINTING EQUIPMENT SETTER Work Phone: Pro[facility] Medical Centerca Virtual Urgent CareComment on above:Sore throat (Primary Dx)Start: 08-09-2023 End: 43-29-2059ysezvohvjuWEZUS FAZIONot AvailableStart: 07-23-2023 End: 68-49-3612akifujurpvDPRLL FAZIONot AvailableStart: 07-02-2023 End: 54-56-6300iulbdgfhmaPRG RAMEYNot AvailableStart: 06-04-2023 End: 08-27-3759vflthyhyiyJIVMM FAZIONot AvailableStart: 05-14-2023 End: 12-47-9780Hbsgih consultation new/estab patient 60 minNikolina P Docheva MD Work Phone: [phone]-Qabfk [facility] Comment on above:19 weeks gestation of (Primary Dx); Mixed anxiety and depressive disorder; Depression affecting ; Anxiety during ; Hx of maternal laceration, 4th degree, currently ; headache in second trimester; Obesity affecting in second trimester, unspecified obesity typeStart: 23-28-9921Dxqrg abstractTena Sears MD Work Phone: [phone]-Iaxuw [facility] Start: 78-54-5226Oppssi Roman MEHTA Work Phone: NOAE BCP OBStart: 31-61-4825Iossoj Roman MEHTA Work Phone: NOPI BCP OBStart: 31-16-7214Hihoyoaa Result Encounter Yadi MEHTA Work Phone: [facility] External Department UnsolicitedStart: 08-07-2022 End: 34-35-2807gucehhvlcsVF TAY MACIASNGFacility:A8Djuvx: 08-02-2022 End: 55-24-1330Dhbeyyecsp and management of inpatientDR RAO ANAYELI .Facility: Start: 07-06-2022 End: 47-22-3617fnrxqearhsSY RAO ANAYELI .Facility:Z3Eaoaq: 06-15-2022 End: 36-24-8265mwzkntckurDO VILMA COBURNFacility:N5Tjena: 06-02-2022 End: 52-22-4763chbtfuhkdxQY GILL THOMPSON .Facility:T1Ywryt: 04-20-2022 End: 52-31-3319ftrucblkdnHU RAO ANAYELI .Facility:I3Fwxwm: 04-20-2022 End: 69-12-7925njsvpckdkaLFV RAMEY .Facility:Q8Eawdq: 03-21-2022 End: 36-10-0922uqfubspvynES RAO ANAYELI .Facility:H8Zhmyp: 01-17-2022 End: 73-83-5694ygoqfzkqhoNA RAO ANAYELI .Facility:F6Lggtd: 12-29-2021 End: 51-67-3303rablzendpoPL RAO GUADALUPE .Facility:C1Gerdj: 11-12-2021 End: 06-16-2629hsyoenmtkpFF BEBO Chowdhury WESTFacility:C8Lghal: 11-09-2021 End: 54-00-2129ojtlrmoedqYLFLDH RAUCHFacility:H1 Procedures DateProcedureProcedure DetailPerforming ClinicianStart: 90-54-4200Birwhd-up visitFollow-upTHOMAS G PADANILAMStart: 46-25-1873Gcppg ankle complete minimum 3 viewsMonica [facility] GLASS TECHNOLOGIST-SCREEN PRINTING EQUIPMENT SETTER Work Phone: Start: 15-12-5063Qygnh test visual color cmprsn methsMonica [facility] GLASS TECHNOLOGISTPros[employer] Work Phone: Start: 79-83-3809EHMF XPERT, XPRESS COV-2, FLU, RSV PLUS (CEPHEID)Mary Lou Bhatt GLASS TECHNOLOGISTPros[employer] Work Phone: Start: 87-41-6849Dlsee streptococcus group a amplified probe Nick Bhatt GLASS TECHNOLOGISTPros[employer] Work Phone: Start: 05-30-2024 End: 87-67-1872Przue medical xm&eval comprhnsv estab pt 1/>Myopia of both eyes with astigmatismSevier Valley Hospital OD Work Phone: Comment on above:Myopia of both eyes with astigmatism Start: 34-00-1261TJC,APTIMA HPV,AGE GDLNCorey Anayeli DO Work Phone: Start: 51-81-3038Ezqce test visual color cmprsn methsCorey Anayeli DO Work Phone: Start: 41-95-1809Zzglyydnprw observation [Identifier] in Cervix by Cyto stainSevier Valley Hospital OD Work Phone: Start: 40-64-0380Enj routine ecg w/least 12 lds w/i&r Montrell Lina Timmons GLASS TECHNOLOGIST-[facility] Work Phone: Start: 04-11-2024 End: 53-82-0646Ectrlnherju diagnostic eval w/medical servicesAnxiety disorder, unspecified typeSsoumya Interiano MD Work Phone: Comment on above:Anxiety disorder, unspecified type (Primary Dx); Recurrent major depressive disorder, in partial remission ([facility]-HCC)Start: 94-76-4206Gmiiyutjd therapeutic carpal tunnelAsher Delfin Arnold MD Work Phone: Start: 45-95-3173HAIQKGJ POST VOID RESIDUALNadine Ankit Parker MD Work Phone: Start: 50-54-9992Jaoyd dip stick/tablet rgnt non-auto w/o micrscpNadine Ankit Parker MD Work Phone: Start: 34-87-8330Bkidp depression screening assessment Montrellvannessa Timmons [facility] CENTERMission Bicycle CompanyMARY A. ALLEY [facility]OSPITAL Work Phone: Start: 31-77-1325Ycuzi nonstress testCorey R Anayeli DO Work Phone: Start: 53-67-8886Xfzmv nonstress testCorey R Anayeli DO Work Phone: Start: 89-40-9592MXSR INFLUENZA A/INFLUENZA B/SARS-COV-2 VERITORSsally Durán [facility] Work Phone: Start: 77-84-7058Werpepekk streptococcus group a Aimee Durán [facility] Work Phone: Start: 05-23-2023 End: 48-82-3197Uerqx medical xm&eval compre new pt 1/> vstMyopia of both eyes [facility] OD Work Phone: Comment on above:Myopia of both eyes (Primary Dx); Regular astigmatism of left eyeStart: 70-34-0155YGRQFTNEKJ/DISCHARGE PLUS VAGINITIS (HTRX)Yadi MEHTA Work Phone: Start: 00-80-8010Ersgz depression screening assessment Roman Sears MD Work Phone: Start: 01-88-4263SCWQX FREE CELL DNA (NON-[facility]) Not In System Ref ProvStart: 55-58-0803Qfqhkcml of Products of Conception, External ApproachYADI YO .Start: 38-19-3685Moyngjki of Female Perineum, External ApproachYADI YO .Start: 25-98-6478Trmqzxbv of Amniotic Fluid, Therapeutic from Products of Conception, Via Natural or Artificial OpeningYADI YO .Start: 13-86-9519Swjrxenbwppr of Other Hormone into Peripheral Vein, Percutaneous ApproachYADI YO .Start: 63-20-5853Zqrrhrayzea observation [Identifier] in Cervix by Cyto stainYadi MEHTA Work Phone: Plan of Treatment DateCare ActivityDetailAuthorStart: 94-40-7668Kjhitqryi for malignant neoplasm of cervixPap SmearProUab Hospital Health SystemStart: 75-07-2344Uwubgzvxl for malignant neoplasm of cervixNOMS HealthcareStart: 76-75-3318Zdxlowl Screening Tobacco ScreeningProUniversity Hospitals Tripoint Medical Centerca Health SystemStart: 72-23-0308Adtbpsj Screening Tobacco ScreeningKettering Health – Soin Medical Centerca Health SystemStart: 04-39-6241Xxqil BMI Screening Adult BMI ScreeningProUniversity Hospitals [facility] Medical Centerca [facility] SystemStart: 00-08-3474Oveulgh Screening Tobacco ScreeningKettering Health – Soin Medical Centerca Health SystemStart: 08-00-1635Zkxkrdk Screening Tobacco ScreeningProUniversity Hospitals [facility] Medical Centerca Health SystemStart: 91-69-8634Rimml BMI Screening Adult BMI ScreeningProUniversity Hospitals [facility] Medical Centerca Health SystemStart: 41-75-5694Xkrtihp Screening Tobacco ScreeningProUniversity Hospitals [facility] Medical Centerca Health SystemStart: 17-53-4807Ysubg BMI Screening Adult BMI ScreeningProUniversity Hospitals [facility] Medical Centerca Health SystemStart: 28-80-3373Obanrdz Screening Tobacco ScreeningProUniversity Hospitals [facility] Medical Centerca [facility] SystemStart: 45-16-1597Zucnb BMI Screening Adult BMI ScreeningProUniversity [facility]als [facility] Medical Centerca [facility] SystemStart: 00-79-9896Dqylnje Screening Tobacco ScreeningProUniversity [facility]als [facility] Medical Centerca [facility] SystemStart: 03-48-6127Mxhdg BMI Screening Adult BMI ScreeningProUniversity Hospitals [facility] Medical Centerca [facility] SystemStart: 72-04-3523Myjwy BMI Screening Adult BMI ScreeningProLancaster Municipal Hospital SystemStart: 19-12-5833Nnkyyzj Screening Tobacco ScreeningProUniversity Hospitals [facility] Medical Centerca [facility] SystemStart: 51-53-2811Bgtvdqa Screening Tobacco ScreeningProUniversity [facility]als [facility] Medical Centerca [facility] SystemStart: 61-99-3774Wwuvl BMI Screening Adult BMI ScreeningProLancaster Municipal Hospital SystemStart: 43-79-4536Cvgfl BMI Screening Adult BMI ScreeningProLancaster Municipal Hospital SystemStart: 37-79-2979Mpkeqhz Screening Tobacco ScreeningProUniversity Hospitals [facility] Medical Centerca [facility] SystemStart: 01-45-4405Zhkqz BMI Screening Adult BMI ScreeningProLancaster Municipal Hospital SystemStart: 33-18-9802Mfqvjxl Screening Tobacco ScreeningProLancaster Municipal Hospital SystemStart: 85-06-1893Plxov BMI Screening Adult BMI ScreeningProLancaster Municipal Hospital SystemStart: 16-23-9456Pfqqxip Screening Tobacco ScreeningTuscarawas Hospital SystemStart: 06-08-2025 End: 72-53-8262Rmpptcm encounter lbejyebty48/09/2026 10:15 AM EDT Office Visit [facility] [address] [place] [address] [facility] [address] [address] [facility] CareStart: 70-56-5116Wxbzhvl ScreeningTobacco ScreeningTuscarawas Hospital SystemStart: 05-25-2025 End: 22-14-8553Alrncfb encounter rudoqdspx23/23/2026 11:00 AM EST Office Visit [facility] [address] [place] [phone] Rao Guadalupe DO [address] [place] [address] [facility] OBStart: 62-83-3744Amsln BMI ScreeningAdult BMI ScreeningProLancaster Municipal Hospital SystemStart: 56-31-5474Uqysktx ScreeningTobacco ScreeningProLancaster Municipal Hospital SystemStart: 54-17-0191Klmfdqwro for malignant neoplasm of cervixPap SmearProLancaster Municipal Hospital SystemStart: 46-74-6640Livqw BMI ScreeningAdult BMI ScreeningProUniversity [facility]als [facility] Medical Centerca [facility] SystemStart: 95-90-7559Xykzm BMI ScreeningAdult BMI ScreeningKettering Health – Soin Medical Centerca [facility] SystemStart: 16-50-2120Gbycfju ScreeningTobacco ScreeningKettering Health – Soin Medical Centerca [facility] SystemStart: 37-94-4885Iohwtzr ScreeningTobacco ScreeningKettering Health – Soin Medical Centerca [facility] SystemStart: 03-27-2025 End: 65-82-3354Gunnngz encounter /26/2025 2:15 PM EST Appointment Rosemary Moon [facility] [address] [place] [address] GjeHndovp Harris Bar[place] - MRIStart: 44-32-7201Idkst BMI ScreeningAdult BMI ScreeningTuscarawas Hospital SystemStart: 89-28-5065Uhmtzbe ScreeningTobacco ScreeningTuscarawas Hospital SystemStart: 14-79-5703Ykhsukp ScreeningTobacco ScreeningKettering Health – Soin Medical Centerca [facility] SystemStart: 02-17-2025 End: 36-16-0571Eeazpvl encounter nyxzpjwns91/18/2025 9:30 AM EST Office Visit [facility], Department of [address] [address] Phong Mcfarlane MD [address] [place] [address], [address] [address] [facility] [facility], [facility] Start: 27-72-1424Wbnut BMI ScreeningAdult BMI ScreeningChillicothe Hospital Start: 02-13-2025 End: 14-53-7972Dgxigsv encounter dxibfjxgq02/14/2025 8:05 AM EST Office Visit [facility] [address] [place] [address] Any Ortega MD [facility] [place] [address] [facility] SurgeonsStart: 02-02-2025 End: 51-45-4596uyqqfnhddjOdcUfzvdsStephens [facility], Department of [facility] Centertart: 01-26-2025 End: 69-68-9023Lubtkrd encounter whsiczoob23/27/2025 5:00 PM EDT Appointment [facility] [address] [place] [address] Closed fracture of left ankle, initial encounterTrumbull Memorial Hospital - Total RehabComment on above:Closed fracture of left ankle, initial encounterStart: 01-19-2025 End: 11-26-1196Xgirfxg encounter kfqescaku34/20/2025 8:45 AM EDT Office Visit [facility] [address] [place] [address] Lashonda Sylvester, DP [address] [place] [phone] (Work) [facility] Start: 01-15-2025 End: 23-08-1240Vjtqkfdd Ncusunn1301/15/2025 8:00 PM EDT Clinical Support [facility] - Sleep Disorders [address] [place] [address] [facility]ofDoexdwWood County Hospital - Sleep DisordersStart: 99-25-3008Paxyccs Screening Tobacco ScreeningTuscarawas Hospital SystemStart: 17-53-9974Mrwte BMI Screening Adult BMI ScreeningTuscarawas Hospital SystemStart: 31-62-5734Dknsmad Screening Tobacco ScreeningECU Health North Hospitaltart: 01-12-2025 End: 98-18-7306Hhweewt encounter xqkxqwgyj20/13/2025 8:30 AM EDT Procedure visit [facility] [address] [place] [address] Lashonda Sylvester, DPM [address] [place] [address] [facility] Start: 01-02-2025 End: 76-34-8546Yitzokq encounter eumqxsjqi34/03/2025 8:10 AM EDT Office Visit [facility] [address] [facility] [place] [address] Any Ortega MD [address] [place] [address] [facility] [facility] SurgeonsStart: 24-90-5919Rrctmcs ScreeningTobacco ScreeningProLancaster Municipal Hospital SystemStart: 05-57-4036Khkgl BMI ScreeningAdult BMI ScreeningProLancaster Municipal Hospital SystemStart: 32-55-7079Semeekodlo ScreeningDepression ScreeningProUniversity Hospitals Tripoint Medical Centerca Health SystemStart: 38-34-1373Hbwqufq ScreeningTobacco ScreeningProUniversity Hospitals Tripoint Medical Centerca Health SystemStart: 12-08-2024 End: 14-50-6063Zgamkji encounter nimpahkhv40/08/2025 8:15 AM EDT Office Visit [facility] [address] [place] [address] Lashonda Sylvester, DPM [address] [place] [phone] (Work) [facility] Start: 12-05-2024 End: 73-60-9505Aiporun encounter byfdmkrha86/05/2025 8:25 AM EDT Office Visit [facility] [address] [facility] [address] Any Ortega MD [address] [place] [address],[place], [place] [phone] [facility] Sp[facility] SurgeonsStart: 91-97-7109MXPWM-19 Vaccine ( season)COVID-19 Vaccine ()[facility] SystemStart: 34-66-2534Ptfduyomc vaccinationInfluenza VaccineProLancaster Municipal Hospital SystemStart: 11-11-2024 End: 41-76-9461Khgpbzqp Qitbehd9811/11/2024 2:00 PM EDT Clinical Support [facility] [address] [address] [phone] HealthcareSleep Disorders CenterStart: 10-31-2024 End: 26-96-2222jpdnbimqid59/01/2025 3:00 PM EDT Lab [facility] [place] [facility] [address] [facility] [address] [place] [address] [phone] Park Medical Center - [place] - LabStart: 10-21-2024 End: 78-85-2126Scowyez encounter /22/2025 3:45 PM EDT Office Visit [facility] [address] [phone] Lorie Johnson, AROLDO-SCREEN PRINTING EQUIPMENT SETTER [address] [facility] [address] [place], [place] [address] [facility] Pul[facility]/Sleep MedicineStart: 73-90-4897Bslgg BMI ScreeningAdult BMI Screening [facility] SystemStart: 44-00-7785Wevzxrf ScreeningTobacco Screening [facility] SystemStart: 09-30-2024 End: 88-84-0805DY Breast - bilateral WO and W contrast IVMR bilateral breast with and without contrast with CAD Imaging Routine Encounter for screening mammo gram for malignant neoplasm of breast Breast cancer screening, high risk patient Expected: 09/30/2024, Expires: 09/30/2025[facility] Work Phone: Comment on above:Expected: 09/30/2024, Expires: 09/30/2025Start: 09-20-2024 End: 41-45-2049Fiqljeu encounter fjpohrgrl61/21/2025 9:45 AM EDT Appointment [facility] [address] [facility] [address] [place] [address] CjlKgxvya [facility] - MammographyStart: 09-16-2024 Tobacco ScreeningTobacco ScreeningKettering Health – Soin Medical Centerca Health SystemStart: 09-16-2024 End: 36-78-4148Uekmuzp encounter zizleyats00/17/2025 10:00 AM EDT Office Visit [facility] [address] [facility] [address] [place] [address] Mara Arnold MD [address] [facility] [place] [address] [facility] SurgeonsStart: 72-39-8766Qqilbey ScreeningTobacco ScreeningKettering Health – Soin Medical Centerca Health SystemStart: 65-75-4730Iyehy BMI ScreeningAdult BMI ScreeningProMedica Health SystemStart: 50-29-4906Srsfjuu ScreeningTobacco ScreeningProMedica Health SystemStart: 41-06-5221Fzvwj BMI ScreeningAdult BMI ScreeningProMedica Health SystemStart: 60-97-8397Abyoest ScreeningTobacco ScreeningProMedica Health SystemStart: 08-11-2024 End: 24-66-6403Nhquuxm encounter wsnhwiimg49/12/2025 10:15 AM EDT Office Visit [facility] - Jessy Ortiz MD [address] [facility] [address] [place] [address] Jessy Ortiz MD [address] [address] [facility] SAMANTHA Mcleodtart: 08-09-2024 End: 60-59-0482Hupsdibqckuy consultation with anvficg8608/09/2024 10:00 AM EDT Telemedicine [facility] [address] [place] [address], [place] [address] [place] [address] [place], [place] [address], [place] [address] [facility] HealthStart: 07-14-2024 End: 47-06-3102Cmflvlw encounter procedureProMedica Physicians [facility]inda [facility] Spine SurgeonsStart: 06-24-2024 End: 27-84-9474Atreqvpsr to same day surgery syndlm2306/24/2024 9:00 AM EDT - 06/24/2024 9:30 AM EDT Surgery [facility] - Endoscopy [address] [place] [address], [address] [place] [address] Phong Mcfarlane MD [address] [facility] [place] [address] ESOPHAGOGASTRODUODENOSCOPY DIAGNOSTIC [15388 (CPT )][facility] - EndoscopyComment on above:ESOPHAGOGASTRODUODENOSCOPY DIAGNOSTIC [69321 (CPT )] Start: 06-24-2024 End: 75-11-5516Fxodqiyvscbroyzwrmnqtuazlp transoral diagnostic ESOPHAGOGASTRODUODENOSCOPY DIAGNOSTIC RUQ pain (R10.11) 06/24/2024 9:00 AM EDT [facility] ENDOSCOPYStart: 56-36-3509Rplidpmkxp hospital visit by physician 06/24/2024 9:00 AM EDT Hospital Encounter [facility] - Endoscopy [address] [place] [address], [address] [place] [address] Phong Mcfarlane MD [address] [facility], [address] [place] [address] [facility] - EndoscopyStart: 06-19-2024 End: 38-10-3825Cihfohe encounter procedureProMedica Physicians Neurology - SAMANTHA Avitiatart: 06-16-2024 End: 28-76-5840Qefxtbd encounter procedureProMedica Physicians [facility]ick [facility] Spine SurgeonsStart: 06-13-2024 End: 86-22-9413Ypzywhr encounter psdypnich13/14/2025 11:00 AM EDT Appointment [facility] - CardioVascular [address] [place] [address] KnvRrwytmWood County Hospital - CardioVascularStart: 06-07-2024 End: 62-74-8067Gbsbannbapke consultation with qhnpuix8006/07/2024 10:00 AM EST Telemedicine [facility] [address] [place] [phone] Augustina Interiano MD [address] [place] [address] [facility] Behavior[facility] HealthStart: 89-41-1547Utylo BMI ScreeningAdult BMI ScreeningTuscarawas Hospital SystemStart: 05-31-2024 End: 14-80-7153Ryccxky encounter nxdwzyuje88/01/2025 8:00 AM EST Appointment [facility] [address] [place] [address], [address] [place] [address] [phone] Wellness Center - LabStart: 05-30-2024 End: 68-09-3117Odkgleg encounter riwctuoap56/28/2025 2:45 PM EST Office Visit [facility] [address] [place] [address] [facility] Yann, [address] [facility] [address] [place] [address] [facility] Eye CareStart: 05-30-2024 End: 15-90-0716ugvrfhbmmw88/28/2025 1:00 PM EST Office Ultrasound [facility] [address] [facility]. [address] [place] [address] [phone] Physicians Digestive HealthcareStart: 05-23-2024 Tobacco ScreeningTobacco ScreeningTuscarawas Hospital SystemStart: 04-02-5378Pssvw BMI ScreeningAdult BMI ScreeningTuscarawas Hospital SystemStart: 61-37-3985Gphiyrs ScreeningTobacco ScreeningECU Health North Hospitaltart: 05-13-2024 End: 04-27-5465Uzdnxfn encounter svcgbgfuv97/11/2025 8:30 AM EST Office Visit [facility] [address] [place] [address] Rao Guadalupe, DO [address] [place] [address] [facility] OBStart: 05-10-2024 End: 13-77-1819Zktbdbnpqmye consultation with reesyla7805/10/2024 10:00 AM EST Telemedicine [facility] [address] [place] [address] Augustina Interiano MD [address] [place] [address] [facility] Behavior[facility] HealthStart: 05-09-2024 End: 50-40-1626Fymrp monitorEvent monitor Cardiac Services Routine Near syncope Expected: 05/09/2024, Expires: 05/09/2025[facility] Work Phone: Comment on above:Expected: 05/09/2024, Expires: 05/09/2025Start: 05-09-2024 End: 74-91-6170JE Abdomen limitedUltrasound abdomen limited Imaging Routine Elevated LFTs Expected: 05/09/2024, Expires: 05/09/2025ProLancaster Municipal Hospital System Comment on above:Expected: 05/09/2024, Expires: 05/09/2025Start: 05-09-2024 End: 22-36-4140Ouessix encounter sumbowzqp68/07/2025 10:40 AM EST Office Visit [facility] - Family Medicine [address] [place] [address] Montrell Timmons, GLASS TECHNOLOGIST-SCREEN PRINTING EQUIPMENT SETTER [address] [place] [address] [facility]: 04-14-2024 End: 41-56-3103Dszwxue encounter aupwfspvh80/13/2025 5:30 AM EST Appointment [facility] [address] [place] [address] [phone] [facility] CenterStart: 01-94-4370Cdgggiujcl hospital visit by physician 04/14/2024 5:30 AM EST Hospital Encounter [facility] [address] [place] [address] [facility] SystemStart: 04-11-2024 End: 19-21-8784Kpdfjdzxcsnh consultation with nlbzeii7304/11/2024 10:00 AM EST Telemedicine [facility] [address] [place] [address] Augustina Interiano MD [address] [place] [address] [facility] HealthStart: 04-11-2024 End: 48-56-0199Xjcexjh encounter sfjefhehx94/10/2025 9:15 AM EST Office Visit [facility] [address] [place] [address] Lashonda Sylvester DPShelby [address] [phone] (Work) [facility] Start: 04-01-2024 End: 15-87-7346Gjcvucl encounter qcflzevtw07/ 3:30 PM EST Procedure visit [facility] [address] [facility] [address] [place] [address] Lashonda Sylvester DPShelby [address] [facility] [address] [place] [address] [facility] Start: 03-20-2024 End: 46-34-3033WE Brain WO contrastMR brain without contrast Imaging Routine Blurry vision, bilateral Chronic migraine without aura without status migrainosus, not intractable Expected: 03/20/2024, Expires: 03/20/2025[facility] Work Phone: Comment on above:Expected: 03/20/2024, Expires: 03/20/2025Start: 16-43-7124Aejxt BMI ScreeningAdult BMI ScreeningProLancaster Municipal Hospital SystemStart: 28-65-6711Tudrgtxvkh ScreeningDepression ScreeningProLancaster Municipal Hospital SystemStart: 03-10-2024 End: 49-81-2493Gymyvok encounter mkjjemyie71/09/2024 9:15 AM EST Office Visit [facility] [address] [place] [phone] Mari Arora MD [address] [address] [facility] General SurgeryStart: 03-07-2024 End: 21-61-2342Oazcthl encounter xbmgirtuu26/06/2024 9:30 AM EST Office Visit [facility]Sleep Medicine [address] [place] [phone] Lorie Johnson APRN-RODRICK [address] [place] [address] [facility] Pulmonary/Sleep MedicineStart: 03-06-2024 End: 62-68-3675Xxmxoky encounter lczmebcxd30/05/2024 8:40 AM EST Office Visit [facility] [address] [place] [address] Mara Arnold MD [address] [facility] [place] [address] [facility] Sp[facility] SurgeonsStart: 02-26-2024 End: 27-53-7333Ykymmzkis to same day surgery ejfovb0802/26/2024 8:00 AM EST - 02/26/2024 10:30 AM EST Surgery [facility] Surgery [address] [place] [address] Mari Arora MD [address] [address] DAVINCI REPAIR HERNIA VENTRALCrystal Clinic Orthopedic CenterComment on above:DAVINCI REPAIR HERNIA VENTRALStart: 02-26-2024 End: 87-59-5301JOITSSC REPAIR HERNIA UMBILICALDAVINCI REPAIR HERNIA UMBILICAL VENTRAL AND UMBILICAL HERNIA 02/26/2024 8:00 AM ESTKettering Health – Soin Medical Centerca Health SystemStart: 02-26-2024 End: 89-91-8053UTDBNGA REPAIR HERNIA VENTRALDAVINCI REPAIR HERNIA VENTRAL VENTRAL AND UMBILICAL HERNIA 02/26/2024 8:00 AM ESTProMedica Health SystemStart: 02-26-2024 End: 25-48-6548NJEUAH HERNIA UMBILICALREPAIR HERNIA UMBILICAL VENTRAL AND UMBILICAL HERNIA 02/26/2024 8:00 AM ESTProMedica Health SystemStart: 02-26-2024 End: 02-35-7643WPJFGX HERNIA VENTRALREPAIR HERNIA VENTRAL VENTRAL AND UMBILICAL HERNIA 02/26/2024 8:00 AM ESTProMedica Health SystemStart: 03-64-4038Ouhsqudvmv hospital visit by zcdyhvjnk88/26/2024 8:00 AM EST Hospital En[facility] [address] [place] [address] [place] [address] [place] [address] [facility] - SurgeryStart: 02-22-2024 End: 20-00-3084Rsdjwwj encounter sopwuksuz89/22/2024 10:30 AM EST Office Visit [facility] [address] [phone] Lashonda Sylvester DPM [address] [address] [facility] Start: 02-11-2024 End: 59-53-6875Yutvzob encounter eeyokfjeu79/11/2024 10:30 AM EST [facility] [address] [place] [address] Mari Arora MD [address] [place] [address] [facility] General SurgeryStart: 19-56-2068Codbysa ScreeningTobacco ScreeningECU Health North Hospitaltart: 02-06-2024 End: 06-21-3034Fbnqwzp encounter lmldwvohr94/06/2024 11:00 AM EST Appointment [facility] [place] [address] [place] [address] [phone] Regional Health Center - CTStart: 01-21-2024 End: 45-57-5111IY Abdomen and Pelvis WO and W contrast IVCT abdomen pelvis w and wo IV contrast Imaging Routine Incisional hernia, without obstruction or greg grene Expected: 01/21/2024, Expires: 01/20/2025[facility] Work Phone: comment on above:Expected: 01/21/2024, Expires: 01/20/2025Start: 01-14-2024 End: 82-40-1093Ccyrjog encounter gxuedgfin71/14/2024 3:30 PM EDT Office Visit [facility] - Urogynecology [address] [facility] [address] [place] [address] Pati Parker MD [address] [facility] [address] [place] [address] [facility] - UrogynecologyStart: 12-13-2023 End: 58-51-9425Amdnd 1996 panel - Serum or PlasmaTuscarawas Hospital SystemComment on above:Expected: 12/13/2023 (Approximate), Expires: 12/12/2024Start: 12-13-2023 End: 54-37-9793Aiatvdr encounter mjwadwqub68/12/2024 10:40 AM EDT [facility] - [facility] Medicine [address] [facility] [place] [address] Montrell Timmons, GLASS TECHNOLOGIST-SCREEN PRINTING EQUIPMENT SETTER [address] [place] [address] [facility] Internal Medicine - Family MedicineStart: 77-18-4039AQQUU-19 Vaccine ( season)COVID-19 Vaccine ( season)[facility] SystemStart: 41-74-8500SNVUR-19 Vaccine ( season)COVID-19 Vaccine ( season)[facility] SystemStart: 07-72-7579Brtpivjto vaccinationOREM COMMUNITY [facility]ITAL HealthcareStart: 09-28-2023 End: 43-81-4493Qqqcxvm encounter aantlmsac18/28/2024 1:45 PM EDT Appointment [facility] US Imaging [address] [place] [address] [facility] US ImagingStart: 09-28-2023 End: 42-72-0240wygialjpra99/28/2024 1:15 PM EDT Support Visit [facility] at [facility] [address] [place] [address] Nodwzxwz- Medicine at [facility] Centertart: 09-21-2023 End: 74-69-8241Ffokmrs encounter wsahsxzzi02/21/2024 2:15 PM EDT Appointment [facility] Imaging [address] [place] [address] [address] [facility] US ImagingStart: 09-21-2023 End: 83-43-0962dsphajidnz74/21/2024 1:45 PM EDT Support Visit [facility]- [facility] at [facility] [address] [place] [address] Rftlhgtv- Medicine at [facility] Centertart: 09-21-2023 End: 85-65-2524Zykeywb encounter ixmowkqig89/21/2024 9:15 AM EDT Appointment [facility] Imaging [address] [place] [address] [address] [facility] US ImagingStart: 09-21-2023 End: 84-03-7518lpqyxhjpzo14/21/2024 8:45 AM EDT Support Visit [facility]- Medicine at [facility] [address] [place] [address] Lnzrfijy- Medicine at [facility] Centertart: 09-14-2023 End: 35-54-8463Hgqivhs encounter jwnxdciay76/14/2024 3:15 PM EDT Appointment [facility] US Imaging [address] [place] [address] [address] [facility] US ImagingStart: 09-14-2023 End: 53-06-4082icrqkatmuv05/14/2024 2:45 PM EDT Support Visit Maternal- Medicine at [facility] [address] [place] [address] Aokcypkx- Medicine at [facility] Centertart: 08-30-2023 End: 92-88-6434Dcpvcevd Hpxqxgg5708/30/2023 7:30 PM EDT Clinical Support [facility] [address] [place] [address] AhpUcffkn [facility] HospitalSleep Disorders CenterStart: 08-28-2023 End: 54-30-7718Fvlkmus encounter jpdygnhkz81/28/2024 3:00 PM EDT Office Visit [facility] [address] [address] Lorie Johnson APRN-SCREEN PRINTING EQUIPMENT SETTER [address] [address] [facility] Pulmonary/Sleep MedicineStart: 06-13-2023 End: 70-24-9173Tfspcic encounter xzrmglsge41/13/2024 8:00 AM EDT Appointment [facility] US Imaging [address] [place] [address] WfcOvxwmq [facility] US ImagingStart: 06-04-2023 End: 37-19-7036Dhoveij encounter agrvapglb85/04/2024 10:20 AM EST Routine [facility] [address] [facility] [place] [address] Rao Guadalupe, [address] [place] [address] [facility] OBStart: 05-23-2023 End: 00-87-2849Xofppdd encounter detpfwioa41/21/2024 3:00 PM EST Office Visit [facility] [address] [place] [address] [facility], [place] [address] [facility] [address] [place] [address] [facility] Eye CareStart: 05-16-2023 End: 25-79-2468Kghkyqgrovdl consultation with zwkraoq1105/16/2023 9:30 AM EST Telemedicine [facility] [address] [place] [address] Augustina Interiano MD [address] [place] [address] [facility]al [facility] HospitalStart: 05-14-2023 End: 38-26-0150Zykxpkd encounter dylnjveuw98/12/2024 11:00 AM EST Office Visit [facility]- [facility] at [facility] [address] [place] [address] Roman Sears MD [address] [address] Maternal- [facility] at [facility] Centertart: 06-35-4903Dkmyjtlrrq hospital visit by physician 05/14/2023 10:00 AM EST Hospital Encounter [facility] US Imaging [address] [place] [address] [phone] [facility] US ImagingStart: 05-07-2023 End: 42-61-4768Edxvzri encounter rdxokqkzy56/05/2024 10:30 AM EST Routine [facility] [address] [place] [address] Yadi Yo PA [address] [place] [address] ArrivedNOMS BCP OBComment on above: ArrivedStart: 38-21-6120WUYLK-19 Vaccine ( season)COVID-19 Vaccine ( season)[facility] X [facility] Hospitaltart: 37-98-7128Wkifrbmdv vaccination [facility] HealthcareStart: 88-49-3601ITbY,Tdap and Td Vaccines (7 - Td or Tdap) DTaP,Tdap and Td Vaccines (7 - Td or Tdap)[facility] Hospitaltart: 33-57-1197Qxwoq BMI Follow Up PlanAdult BMI Follow Up PlanChillicothe Hospital End: 29-04-1666DXL W Auto Differential panel - BloodCBC auto differential Lab Routine Iron deficiency anemia, unspecified iron deficiency anemia type 1 Occurrences starting 12/13/2023 until 12/12/2024[facility] HospitalComment on above:1 Occurrences starting 12/13/2023 until 5CBC W Auto Differential panel - BloodCBC auto differential Lab Routine Iron deficiency anemia, unspecified iron deficiency anemia type 12/13/2023 8:21 PM [facility] End: 74-13-3427ZobswhjgpwfykWtynrjaqhqhcp Lab Routine Metabolic dysfunction- associated steatotic liver disease (MASLD) 1 Occurrences starting 06/16/2024 until 06/16/2025Ch[facility]icothe HospitalComment on above:1 Occurrences starting 06/16/2024 until 6Ceruloplasmin [Mass/volume] in Serum or Plasma Ceruloplasmin Lab Routine Metabolic dysfunction-associated steatotic liver disease (MASLD) 06/16/2024 1:44 PM [facility] End: [id number] metabolic 2000 panel - Serum or PlasmaComprehensive metabolic panel Lab Routine Elevated LFTs 1 Occurrences starting 05/09/2024 until 05/09/2025[facility] HospitalComment [facility] above:1 Occurrences starting 05/09/2024 until 05/09/2025 End: [id number] metabolic 2000 panel - Serum or PlasmaComprehensive metabolic panel Lab Routine Wellness examination 1 Occurrences starting 12/13/2023 until 12/12/2024[facility] CenterBenef[facility] Work Phone: Comment on above:1 Occurrences starting 12/13/2023 until 12/12/2024omprehensive metabolic 2000 panel - Serum or Plasma Comprehensive metabolic panel Lab Routine Wellness examination 12/13/2023 8:21 PM [facility] End: 15-24-4310Xeerpfmdjcdvrn vitamin b-12Vitamin B12 Lab Routine Dizziness Chronic migraine without aura without status migrainosus, not intractable Ataxia Tension headache Vitamin D deficiency Hypothyroidism, unspecified type 1 Occurrencesstarting 06/19/2024 until 06/19/2025[facility] HospitalBent[facility] BioServices SystemComment on above:1 Occurrences starting 06/19/2024 until 06/19/2025ytology Cervical or vaginal smear or scraping studyPap Smear Pathology and Cytology Routine Well woman exam with routine gynecological exam Ordered: 05/13/2024[facility] [employer] Work Phone: comdcyb on above:Ordered: 05/13/2024 End: 61-35-4022FnwyrbpynqjfqpmcyvnjgdidwpJQY GI Routine RUQ pain 1 Occurrences starting 06/16/2024 until 06/16/2025[employer] Work Phone: Comment on above:1 Occurrences starting 06/16/2024 until 06/16/2025 End: 14-51-2058Whxyh nonstress test - Maternal MedicineFetal nonstress test - Maternal Medicine OB Routine Obesity affecting in second trimester, unspecified obesity type weekly for 6 Occurrences starting 09/12/2023 until 09/11/2024, 1 completedProWAP[facility] Work Phone: comment on above:weekly for 6 Occurrences starting 09/12/2023 until 09/11/2024, 1 completed End: 59-64-7914AtebpntssBwqtaoipr GI Routine Hepatic steatosis 1 Occurrences starting 05/28/2024 until 05/28/2025[employer] Work Phone: Comment on above:1 Occurrences starting 05/28/2024 until 05/28/2025 End: 93-68-6751BkjxvpskaErttfwqfu GI Routine Abnormal liver enzymes Hepatic steatosis 1 Occurrences starting 10/30/2024 until 10/30/2025[facility] Work Phone: Comment on above:1 Occurrences starting 10/30/2024 until 10/30/2025 End: 77-10-0318MwopdiOznbyq Lab Routine Dizziness Chronic migraine without aura without status migrainosus, not intractable Ataxia Tension headache Vitamin D deficiency Hypothyroidism, unspecified type 1 Occurrences starting 06/19/2024 until 06/19/2025[facility] [employer] SystemComment on above:1 Occurrences starting 06/19/2024 until 06/19/2025 End: 10-70-0474Vechchddcf A1c/Hemoglobin.total in BloodHemoglobin A1c Lab Routine Impaired fasting glucose 1 Occurrences starting 05/29/2024 until 05/29/2025[facility] Work Phone: Comment on above:1 Occurrences starting 05/29/2024 until 05/29/2025 End: 56-38-8139Cjqjeeuos B surface antigenHepatitis B surface antigen Lab Routine Metabolic dysfunction-associated steatotic liver disease (MASLD) 1 Occurrences starting 06/16/2024 until 06/16/2025[facility] HospitalComment on above:1 Occurrences starting 06/16/2024 until 06/16/2025Hepatitis B virus surface Ag [Presence] in Serum or Plasma by ImmunoassayHepatitis B surface antigen Lab Routine Metabolic dysfunction-associated steatotic liver disease (MA SLD) 06/16/2024 1:44 PM [facility] Ab [Presence] in Serum or Plasma by ImmunoassayHepatitis C(HCV) Ab w/ Reflex to PCR Lab Routine Metabolic dysfunction-associated steatotic liver disease (MASLD) 06/16/2024 1:44 PM [employer] [facility] End: 00-74-0263Aiyjgzomp C(HCV) Ab w/ Reflex to PCRHepatitis C(HCV) Ab w/ Reflex to PCR Lab Routine Metabolic dysfunction-associated steatotic liver disease (MASLD) 1 Occurrences starting 06/16/2024 until 06/16/2025[facility] [employer] [facility] HospitalComment on above:1 Occurrences starting 06/16/2024 until 06/16/2025 End: 88-54-8963Gezv sleep studyHome sleep study Sleep Center Routine Sleep- related breathing disorder 1 Occurrences starting 08/28/2023 until 08/27/2024 [facility] Work Phone: Comment on above:1 Occurrences starting 08/28/2023 until 08/27/2024 End: 71-28-3492Oswl sleep studyClifton sleep study Sleep Center Routine KESHIA (obstructive sleep apnea) 1 Occurrences starting 10/21/2024 until 10/21/2025 [employer] Work Phone: Comment on above:1 Occurrences starting 10/21/2024 until 10/21/2025Human papilloma virus DNA [Presence] in Unspecified specimen by Probe with amplificationHPV DNA probe, amplified Microbiology Routine Well woman exam with routine gynecological exam Ordered: 05/13/2024[facility] CenterComment on above:Ordered: 05/13/2024 End: 00-45-0020Htfqx panelLiver panel Lab Routine Abnormal liver enzymes Hepatic steatosis 1 Occurrences starting 10/30/2024 until 10/30/2025ProUniversity [facility]als Tripoint Medical Centerasgoodasnew electronics GmbHComment on above:1 Occurrences starting 10/30/2024 until 10/30/2025 End: 87-86-3439Ibisgrw electrophoresis, serumProtein electrophoresis, serum Lab Routine Metabolic dysfunction-associated steatotic liver disease(MASLD) 1 Occurrences starting 06/16/2024 until 06/16/2025[facility] CenterAito BV SystemComment on above:1 Occurrences starting 06/16/2024 until 06/16/2025Protein electrophoresis, serumProtein electrophoresis, serum Lab Routine Metabolic dysfunction-associated steatotic liver disease(MASLD) 06/16/2024 1:44 PM EDT [facility] End: 69-95-4361LOK DiagnosticPSG [facility] Routine Sleep-related breathing disorder 1 Occurrences starting 12/03/2024 until 12/03/2025[facility] Work Phone: Comment on above:1 Occurrences starting 12/03/2024 until 12/03/2025 End: 94-42-2134Xvmlvq Muscle ABSmooth Muscle AB Lab Routine Metabolic dysfunction-associated steatotic liver disease (MASLD) 1 Occurrences starting 06/16/2024 until 06/16/2025[facility] SystemComment on above:1 Occurrences starting 06/16/2024 until 06/16/2025Smooth muscle Ab [Presence] in Serum by ImmunofluorescenceSmooth Muscle AB Lab Routine Metabolic dysfunction-associated steatotic liver disease (MASLD) 06/16/2024 1:44 PM [employer] End: 79-77-5823Qymdovm profile includes TSH UW9Jumkvxh profile includes TSH FT4 Lab Routine Dizziness Chronic migraine without aura without statusmigrainosus, not intractable Ataxia Tension headache Vitamin D deficiency Hypothyroidism, unspecified type 1 Occurrences starting 06/19/2024 until 06/19/2025ProBenten BioServices SystemComment on above:1 Occurrences starting 06/19/2024 until 06/19/2025 End: 11-06-2320GKQ with ReflexTSH with Reflex Lab Routine Other fatigue 1 Occurrences starting 12/13/2023 until 12/12/2024ProUniversity Hospitals Tripoint Medical CenterAito BV Formerly [facility] HospitalComment on above:1 Occurrences starting 12/13/2023 until 12/12/2024TSH with ReflexTSH with Reflex Lab Routine Other fatigue 12/13/2023 8:21 PM [employer] End: 23-17-7047Schymby D 25 hydroxyVitamin D 25 hydroxy Lab Routine Dizziness Chronic migraine without aura without status migrainosus, not intractable Ataxia Tension headache Vitamin D deficiency Hypothyroidism, unspecified type 1 Occ urrences starting 06/19/2024 until 06/19/2025ProUniversity Hospitals Tripoint Medical CenterBenefitter Work Phone: comment on above:1 Occurrences starting 06/19/2024 until 06/19/2025 Immunizations Immunization DateImmunizationNotesCare BhvwchdxPmyjpaqz62-40-5795crrationn virus vaccine, unspecified formulationRao Guadalupe DO Work Phone: [facility] CenterFnqwlhnner38-40-4782aobxlytex virus vaccine, unspecified formulationYadi MEHTA Work Phone: [facility] CenterBsmywfmioc37-07-2099UUKXB-84, mRNA, LNP-S, PF, 100mcg/0.5mL DoseNiktawana Sears MD Work Phone: pChrist[facility] St[facility] Patrick HospitalDexmo Ukbyfm30-15-0060UVEGU-90, mRNA, LNP- S, PF, 100mcg/0.5mL DoseRoman Sears MD Work Phone: [facility] Payers DatePayer CategoryPayerPolicy ID2023Medicaid [id number] [id number] - [id number] [id number] [id number] 2019 [id number] 2.0.1.455097.3.579.2.11404-16-7022Ygbjukl2883811 2.0.1.698187.3.579.2.21709-54-9778Mbnjucf3074490 2.0.1.659308.3.579.2.75965-71-2762Tvbqqgu4623282 2.840.1.629743.3.579.2.19666-78-9227Ytcgize2107344 2.840.1.166828.3.579.2.01258-74-2353Ounaycd7966203 2.840.1.751716.3.579.2.14265-91-0971Cypfnnn9688542 2.840.1.009602.3.579.2.60438-81-0035Jahdfgw9213251 2.840.1.675502.3.579.2.27422-86-5390Jxdepvy0154179 2.840.1.255024.3.579.2.15873-12-6555Falgsut5373271 2.0.1.663224.3.579.2.18379-92-7283Rrlflav2688022 2.0.1.115419.3.579.2.66510-45-8807Amifomm3590733 2..1.864442.3.579.2.42694-69-5827Mwfucxa4633795 2.0.1.012390.3.579.2.34217-45-1827Guljzej4968732 2..1.950612.3.579.2.175750-95-7192Bsvmvdu1097469 2..1.371604.3.579.2.189476-43-3273Smhvalw4968229 2..1.548097.3.579.2.296154-25-8663Zwvqxia2592069 2.0.1.378369.3.579.2.725987-52-7377Ptnhnuz7006784 2.0.1.949345.3.579.2.534961-92-3110Ruqzpvz7244846 2.840.1.983540.3.579.2.824074-14-7620Xqwtqai7148316 2.840.1.266314.3.579.2.690530-49-3766Jxltwzk5777574 2.16840.1.530900.3.579.2.498124-85-0645Iitinbj0044209 2.16840.1.549544.3.579.2.893878-93-9069Igyroeu3813737 2.840.1.557123.3.579.2.994142-88-8191Bzuryfk249069604 2.840.1.571260.3.579.2.352406-28-1552Zxeftaj056792025 2.0.1.497540.3.579.2.917962-92-3308Wsrpvcf559072036 2.840.1.744757.3.579.2.183210-14-4420Gryvpmq188071066 2.0.1.162089.3.579.2.980011-73-4397Iyxtvhu544318246 2.0.1.782042.3.579.2.879983-74-2279Ejplgsg359935524 2.840.1.536660.3.579.2.942226-86-8050Ebwgpwu147241138 2.0.1.318510.3.579.2.178631-25-7890Mlsmruk742229548 2.840.1.165984.3.579.2.962545-75-7956Bylnlqn925304991 2.840.1.072967.3.579.2.685863-52-1783Jyzilcy557669909 2.840.1.660726.3.579.2.940199-93-5796Fdqseai938994182 2.840.1.790676.3.579.2.982547-00-7829Ibkpngp224136317 2.840.1.612266.3.579.2.833377-88-7491Vgaqluc706026684 2.840.1.136772.3.579.2.782078-10-3660Ryxmugd215340860 2.840.1.192772.3.579.2.513641-06-6042Xaxocqc409475234 2.0.1.025027.3.579.2.435090-56-8380Mmpvqma45050561 2.0.1.059939.3.579.2.556053-64-2956Cfgltyk03892598 2..1.033817.3.579.2.750358-11-5198Pbaqjmg29434177 2..1.692680.3.579.2.794021-57-4220Zuptinz78223917 2..1.683890.3.579.2.653516-10-7750Vaiglvy84650286 2..1.212163.3.579.2.785297-27-6585Yeoysll250982736 2..1.085571.3.579.2.143128-32-5498Kbaorla570269331 2.0.1.304115.3.579.2.934452-08-8487Kxnuwvn848163237 2.0.1.368634.3.579.2.962632-95-3890Bmbzljz533926321 2.0.1.505942.3.579.2.840649-76-8613Vsgnssb877514407 2.840.1.631493.3.579.2.786504-30-9956Ewtqxpw633718190 2.840.1.666809.3.579.2.630115-07-6322Tckccxz048548419 2.840.1.469219.3.579.2.476027-04-2332Dksnpdi993715640 2.840.1.432647.3.579.2.924452-97-6355Xeqwife520257812 2.840.1.981467.3.579.2.269391-79-2364Ihgvjsh384476912 2.0.1.530082.3.579.2.962698-84-2251Odsjqgm415580779 2.0.1.996348.3.579.2.786424-21-0496Gyilbzz533416369 2.0.1.600276.3.579.2.103781-31-1566Mqjccsk651743262 2.0.1.259473.3.579.2.592753-51-6253Omrtzoi275868668 2.0.1.650043.3.579.2.837431-54-1493Dftlyug857453459 2.0.1.955457.3.579.2.922232-05-7334Fkyekei001086971 2.0.1.930012.3.579.2.384864-00-3050Snqumwj641751655 2.0.1.733257.3.579.2.653156-33-2095Ltbgtkp57838551 2.0.1.858640.3.579.2.138186-56-8481Jebekka40658491 2.840.1.195405.3.579.2.906799-92-6237Dwrsdkp38466815 2.840.1.523569.3.579.2.776310-07-1081Asbchju18699404 2.16.840.1.232165.3.579.2.424760-45-8687Lwdaldu24891959 2.16.840.1.393328.3.579.2.288381-49-9948Puyhbec27621188 2.16.840.1.588216.3.579.2.519762-94-9949Ddxyuxy33919788 2.16.840.1.111271.3.579.2.896931-08-3239Wjvcinc544026009 2.16.840.1.467005.3.579.2.822956-82-3612Gjlzagi782008730 2.16.840.1.798317.3.579.2.248827-30-5668Ltbbqfa733311235 2.16840.1.887654.3.579.2.970881-14-5759Azytwgq393098415 2.16.840.1.685309.3.579.2.387879-80-2241Ghspxsi159376329 2.16840.1.052505.3.579.2.344897-68-0665Nbclmhb01560402 2.16840.1.914849.3.579.2.973500-94-2672Kcpp-dmd79-30-5798CvcfhkaP7XMV1291084 77-29-9490Yskswee729798900802Ljelqos6730163 2.16840.1.511161.3.579.2.593 Social History DateTypeDetailFacilityStart: 09-11-2022 End: 20-05-6585Klbrzxa smoking status NHISEx-smokerNOMS HealthcareHistory of tobacco useCurrent smokerNOMS HealthcareHistory of tobacco useCigarette Smoker N[facility]S HealthcareStart: 04-09-2023 End: 78-57-8434Psacoaz intakeCurrent drinker of alcohol (finding)[facility] Start: 04-21-2020 End: 88-21-9129Slwqfzn of Social functionNONC HealthcareStart: 04-21-2020 End: 14-07-3926Jhpawxm use panelNONC HealthcareStart: 96-95-5694Gyrwhqw Comment monthly or lessNONC HealthcareStart: 59-65-0811EjlwizgtoJTHJ HealthcareStart: 81-06-2323Oge Assigned At BirthFeSaugus General Hospital HealthcareStart: 02-42-6360Tuziez identityIdentifies as female gender (finding)[facility] HealthcareStart: 10-01-2023 End: 42-82-4085Tuxptcv use and exposureSmokeless tobacco non-userTuscarawas Hospital SystemStart: 11-06-2023 End: 80-16-2721Qlwmobrwn beverage intakeEx-drinker (finding)[facility] SystemHow often to you have a drink containing alcohol?Monthly or lessOREM COMMUNITY [facility]PITAL HealthcareAverage Number of DrinksNot on [facility] SystemHistory of tobacco useTobacco Use Types Packs/Day Years Used Date Smoking Tobacco: Former Cigarettes 0.5 10 Vaping/E-cigarettes Smokeless Tobacco: NeverProL[facility] Municipal [facility] SystemStart: 92-42-0801Wstebfh CommentOccasionalTuscarawas Hospital SystemStart: 72-34-2123CncMzctma (finding)[facility] SystemStart: 99-46-1319Cai assigned at birthNot on [facility] System Medical Equipment Procedure CodeEquipment CodeEquipment Original TextEquipment IdentifierDatesMes Rnd Pp Pcl Macroporous Parietene Ds 12cm 2.4mm Comp Abs Rpl [id number] - [id number]: 02-26-2024 Goals DatePatient GoalDesired Activity/StatePersonal health goal Clinical Notes 05-14-2023 to 01-19-2025 Note Date & RvayGobeXrflwuyh17-49-4720 History of Present illness Narrative* Lashonda Sylvester DPM - 01/19/2025 8:45 AM EDT Images from the original note were not included. [facility] [address] [facility] [address] Patient: Arabella Hernandez Account No: [id number] Date: 01/19/2025 Physician: Lashonda Sylvester DPM PCP: MONTRELL TIMMONS APRN-RODRICK Problem: Follow-up Nail Procedure: left lateral hallux matrix Subjective: Patient is being seen today for first follow-up after a nail procedure on 01/12/2025. The patient admits to mild pain last night after going to the gym. She states that she is not having any pain. Patient notes mild discharge. Admits that they are following the soaking and bandaging instructions with cortisporin. No new pedal complaints at this time. Objective: The dressing removed and wound was inspected. There is scant active drainage observed. No swelling and ecchymosis is noted. Minimal erythema noted. Assessment: Arabella was seen today for post-op. Diagnoses and all orders for this visit: Onychocryptosis Left foot pain Plan: Status postop surgery. Reviewed the post-operative instructions. Continue soaking in Epsom salt and warm water as long as drainage is present. Leave open at night but cover during the day until the drainage has stopped. Patient to return for follow up PRN Patient is instructed to call with any questions or concerns. This note was created with the assistance of a speech-recognition program. Although the intention is to generate a document that actually reflects the content of the visit, no guarantees can be provided that every mistake has been identified and corrected by editing. -Lashonda Sylvester DPM Scribe Statement: Scribed for and in the presence of Lashonda Sylvester DPM by Karan Zarate 01/19/25 0910 documented in this encounterChillicothe Hospital10-13-2025 History of Present illness Narrative* Lashonda Sylvester DPM - 01/12/2025 8:30 AM EDT Images from the original note were not included. [facility] [address] [place] [address] Patient ID: Arabella Hernandez is a 34 y.o. female. PCP: MONTRELL TIMMONS APRN-RODRICK Chief Complaint: Chief Complaint Patient presents with Procedure Left lateral hallux matrix Subjective: This 34 y.o. year old female presents for a left lateral hallux matrixectomy. Patient did previously had a matrixectomy to the left lateral hallux on 03/31/2025 and states that it has been getting infected again. She denies any drainage or infection currently. Patient consents to procedure. Lab Review: Lab Results Component Value Date HGBA1C 5.2 05/31/2024 Tobacco Use: Medium Risk (01/12/2025) Patient History Smoking Tobacco Use: Former Smokeless Tobacco Use: Never Passive Exposure: Not on file Review of Systems: Review of Systems Constitutional: Negative for chills and fever. Respiratory: Negative for shortness of breath and wheezing. Cardiovascular: Negative for leg swelling. Gastrointestinal: Negative for nausea and vomiting. Musculoskeletal: Positive for arthralgias and gait problem, left great toenail Neurological: Negative for dizziness and numbness. Objective: Vitals: BP 103/73 Pulse 83 Temp (!) 35.7 C (96.3 F) (Temporal) Physical Exam: Physical Exam Vascular: Dorsalis pedis pulses are present +2/4 left and posterior tibial pulses present +2/4 left. Capillary refill time is brisk. Skin temperature is warm to Cool from proximal to distal left. There is Normal hair growth noted digitally left. Derm: Skin has normal hydration. Wounds Absent. There is no callus noted. There is erythema and edema present, left. There is no calor or drainage present, left. Neuro: Epicritic and protective sensation Normal bilateral. Light touch intact. Denies numbness and tingling bilateral foot. Ortho Exam: 5/5 strength all lower extremity muscle groups. Pain with the lateral border left great toe. Radiographic findings: X-ray ankle left minimum 3 views Result Date: 01/02/2025 Narrative: Date xrays obtained :01/02/2025 Standing AP, lateral and mortise view of the left ankle was obtained today. This shows good healing of the patient's lateral malleolus fracture. Assessment and Plan: Arabella was seen today for procedure. Diagnoses and all orders for this visit: Onychocryptosis Left foot pain Other orders - klbawfqq-syygjolnu-ZZ (CORTISPORIN) otic solution; Apply 1 drop twice daily to affected nail. Matrixectomy Informed consent signed for lateral matrixectomy of 1st toe left foot. Patient is aware of the expected results and possible complications. There are no guarantees as to the results. Local anesthesia consisting of 5cc of 2% lidocaine plain was infiltrated around [...] was instructed. Patient is to return in 1-2 weeks for postoperative check. Patient is instructed to call with any questions or concerns. Patient will be written a script for cortisporin otic drops. Dr.Stephanie Onel Sylvester DPM Scribe Statement: Scribed for and in the presence of Lashonda Sylvester DPM by Karan Zarate 01/12/25 0859 Karan Zarate 01/12/25 0905 documented in this encounterChillicothe Hospital10-03-2025 History of Present illness Narrative* Any Ortega MD - 01/02/2025 8:10 AM EDT [facility] Any Ortega MD Orthopaedic Surgery Specializing in Foot & Ankle Last encounter with me:12/05/2024 Any Ortega MD Last Encounter with Speciality: 12/05/2024 Any Ortega MD Date of visit: 01/02/2025 Chief Complaint: Chief Complaint Patient presents with Left Ankle - Follow-up XR today. WBAT in boot HPI Marii Trinidad Hernandez is a 34 y.o. who returns in follow-up for left ankle diagnosed with nondisplaced lateral malleolus fracture.. Fracture was sustained late October of this year. She admits that shehas worn the boot for a month, she has slowly wean her way off the boot in the past week. She does not have much pain on the lateral side of the ankle, most of her pain is along the medial deltoid ligament region. She does feel overall her symptoms are improving from last visit. Examination Left ankle skin intact clean and dry. No swelling or bruising appreciated. No tenderness along the distal fibula region with palpation. Tenderness along the medial malleolus deltoid ligament region with palpation. Patient has full range of motion with referred pain against resistance to the medial aspect of the ankle. No forefoot midfoot tenderness. 2+ pedal pulses. Sensory intact distally light touch. External notes reviewed: Review of test/study reports: My personal interpretation of tests: Xrays ordered & done in office:: X-ray ankle left minimum 3 views Date xrays obtained :01/02/2025 Standing AP, lateral and mortise view of the left ankle was obtained today. This shows good healing of the patient's lateral malleolus fracture. Procedures in clinic today: None Assessment Closed fracture of left lateral malleolus fracture sustained 6 weeks ago. Plan Examination of the left ankle demonstrates no tenderness along the fracture site of the lateral malleolus. She has mild pain along the deltoid ligament. No overall she is doing very well. We will have her wean out of the boot and into regular shoe. Recommend physical therapy. Prescription physical therapy was provided for range of motion and strengthening . Follow up in 6 weeks re-evaluate. I,Any Ortega, personally performed the face to face evaluation on this patient. I discussed with the patient and confirmed the accuracy and completeness of the aforementioned history prepared by the advance practice provider, and I personally performed the clinical examination of the patient.The critical element of all procedures were performed by me. I discussed the treatment plan with the patient. My examination, medical decision making and treatment plan are reflected above and are asfollows. Overall she has noted overall she has noted significant improvement in regards her left ankle. She is still having some mild discomfort. Some discomfort along the medial aspect of the ankle region. She has got some tenderness along the medial and lateral aspects of ankle. This point her x-rays do show progression I think she can work herself out of the boot like to get her started in some physical therapy she does have some eversion weakness I will plan on seeing her back in 6 weeks for re-evaluation documented in this encounterChillicothe Hospital09-08-2025 History of Present illness Narrative* Lashonda Sylvester, DPM - 12/08/2024 8:15 AM EDT Images from the original note were not included. [facility] [address] [facility] [facility] [address] Patient ID: Arabella Hernandez is a 34 y.o. female. PCP: MONTRELL TIMMONS APRN-RODRICK Chief Complaint: Chief Complaint Patient presents with Nail Problem Subjective: This 34 y.o. year old female presents for pain and redness to her left lateral hallux toe. She states that it is painful when she ambulates in tighter shoes. She states that she has not noticed any discharge. Patient states that the pain started flairing up about a month ago.She does have a historyof a matrix on her left lateral hallux toe on 04/01/2025. Lab Review: Lab Results Component Value Date HGBA1C 5.2 05/31/2024 Tobacco Use: Medium Risk (12/08/2024) Patient History Smoking Tobacco Use: Former Smokeless Tobacco Use: Never Passive Exposure: Not on file Review of Systems: Review of Systems Constitutional: Negative for chills and fever. Respiratory: Negative for shortness of breath and wheezing. Cardiovascular: Negative for leg swelling. Gastrointestinal: Negative for nausea and vomiting. Musculoskeletal: Positive for arthralgias and gait problem Neurological: Negative for dizziness and numbness. Objective: Vitals: BP 111/83 Pulse 92 Temp (!) 35.8 C (96.4 F) (Temporal) Physical Exam: Physical Exam Vascular: Dorsalis pedis pulses are present +2/4 bilateral and posterior tibial pulses present +2/4bilateral.Capillary refill time is brisk. Skin temperature is warm to Cool from proximal to distal bilateral.There is no edema present, bilateral. There is Normal hair growth noted digitally bilateral. Derm: Skin has normal hydration. Wounds Absent. There is no callus noted. Erythema, edema, and calor lateral border left hallux with no active drainage. Neuro: Epicritic and protective sensation Normal bilateral. Light touch intact. Denies numbness and tingling bilateral foot. Ortho Exam: 5/5 strength all lower extremity muscle groups. Radiographic findings: X-ray ankle left minimum 3 views Result Date: 12/02/2024 Narrative: History: Pain. Acute pain twisting injury Study: Left Ankle Three view study. Comparison: None Impression: * Nondisplaced versus incomplete transversely oriented fracture of the lateral malleolus is appreciated. There is some sclerosis indicating subacute in age. No concerning soft tissue swelling. No syndesmotic widening. Consider follow-up with orthopedics.. Finalized by Yadi Sanchez MD on 12/02/2024 11:43 AM Assessment and Plan: Arabella was seen today for nail problem. Diagnoses and all orders for this visit: Onychocryptosis Left foot pain Patient fully examined and evaluated. Previous records were personally reviewed. Radiographs were reviewed by myself and results were discussed with patient. Patient advised to soak in warm water with epsom salt twice per day. Call back to start on antibiotics if there is drainage. Patient should return to clinic in 1 month for left lateral border hallux matrixectomy. 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 XR 12/02/24. Pt states almost 4 weeks ago was wearing platform sandals and rolled Lt Ankle. Went to on 12/02/24, XR and WB in boot. No prior Sx. HPI Arabella Hernandez is a 34 y.o. female who presents today with an injury that occurred to the left ankle about 3-4 weeks ago. She states that she is wearing platform sandals while gardening and rolled her left ankle. She felt a crack in her ankle during this incident. She initially had pain, swelling, bruising along the lateral aspect of the left ankle and treated her injury conservatively. However, she continued to have pain after a few weeks so she went to urgent care on 12/02/2024 where they obtained x-rays and placed her in a walking boot for a lateral malleolus fracture. She has been taking [id number] medication as needed for symptoms. She has been wearing her walking boot overthe last few days. She rates her symptoms today 4/10. Examination Exam: Patient was alert and oriented x3 with no signs of distress. Upon examination of the left ankle, skin is clean, dry, intact. Tender to palpation along the lateral malleolus. Minimal swelling present along the lateral malleolus. No bruising present. No signs of infection present. She does have limitations with range of motion due to pain with dorsiflexion, plantar flexion, inversion, eversion. Strength testing was deferred. Soft calf with negative Homans test. Exam of the legs show normal posterior tibial and dorsalis pedis pulses. Normal sensation to light touch in foot and ankle. External notes reviewed: Iqra Donovan, GLASS TECHNOLOGIST-SCREEN PRINTING EQUIPMENT SETTER notes were reviewed from 12/02/2024. Review of test/study reports: X-ray ankle left minimum 3 views History: Pain. Acute pain twisting injury Study: Left Ankle Three view study. Comparison: None Impression: * Nondisplaced versus incomplete transversely oriented fracture of the lateral malleolus is appreciated. There is some sclerosis indicating subacute in age. No concerning soft tissue swelling. No syndesmotic widening. Consider follow-up with orthopedics.. Finalized by Yadi Sanchez MD on 12/02/2024 11:43 AM My personal interpretation of tests: I personally reviewed a nonweightbearing AP, lateral mortise view of the left ankle from 12/02/2024. This shows an irregularity along the lateral malleolus with a a questionable fracture line. Xrays ordered & done in office: No image results found. Procedures in clinic today: None Assessment Closed left ankle lateral malleolus fracture sustained 3-4 weeks ago (mid October) Plan Patient was seen and examined on today's visit. Physical exam findings were reviewed with her. X-rays of the left ankle were reviewed from urgent care. She did sustain a left lateral malleolus fracture. We discussed continued conservative management of this with her walking boot. She was agreeable to this treatment plan. She will continue wearing her walking boot. We also recommended taking vitamin-D 79076 units weekly. This was sent to her pharmacy. She will follow-up in 4 weeks for reassessment with new x-rays. All questions were addressed and answered. I, Any Ortega, personally performed the face to face evaluation on this patient. I discussed with the patient and confirmed the accuracy and completeness of the aforementioned history, and I personally performed the clinical examination of the patient. I have established and discusses the course of treatment with the patient and Physician Textile Clothing And Footwear Mechanic. The critical element of all procedures were performed by me. My examination, medical decision making and treatment plan are reflected above and are as follows: He has had difficulties with pain localized to the left ankle region. Her x-rays are consistent with a subtle fracture of the lateral malleolus. She is tender in this region. She has got no proximal tenderness. No Lisfranc tenderness. She does have a history of vitamin-D deficiency of such [place] [address] units for the vitamin-D to take weekly. I have going to put her in a boot. She will weight bear as tolerated. I did discuss with her that the vast majority of thesefractures do heal but occasionally they do not heal over the slow heel which would may require additional intervention of. I will plan on seeing her back in 4 weeks with repeat x-rays documented in this encounterProMedica [facility] [id number] Miscellaneous Notes* Telephone Encounter - Frida Alves - 12/04/2024 3:01 PM EDT 12/03 Order received Called PT LM to schedule sleep study. PSG order and 10/21 Cutcher notes in epic documented in this encounterCh[facility]09-[facility]25 Telephone encounter Note* Telephone Encounter - Frida Alves - 12/04/2024 3:01 PM EDT 12/03 Order received Called PT LM to schedule sleep study. PSG order and 10/21 [place] notes in epic [facility] History of Present illness Narrative* JEANINE Dorado - 12/02/2024 1:20 PM EDT Patient's sleep study is negative for sleep apnea. Patient did have a weight loss prior to her sleep testing. JEANINE Dorado 12/02/24 1320 documented in this [facility]09-02-2025 Miscellaneous Notes* Telephone Encounter - Darcy Downing LPN - 12/02/2024 1:20 PM EDT Patient updated on order for PSG and that the sleep lab will be contacting her to schedule. documented in this [facility]09-02-2025 Telephone encounter Note* Telephone Encounter - Darcy Downing LPN - 12/02/2024 1:20 PM EDT Patient updated on order for PSG and that the sleep lab will be contacting her to schedule. [facility] [employer] X [id number] Miscellaneous Notes* Telephone Encounter - Shauna Peacock MD - 12/02/2024 12:29 PM EDT [facility] pulshelby (BASSEM) ordered HST Results below Please follow up results with patient, I did not send any correspondence with results Thank you Home sleep apnea test on 11/11/2024 (JOSE (3%)=3.2 events/hour; JOSE (4%)=1.3 events/hour; Misha SpO2=94.0%; Ugajfl=281.0 lbs; BMI=38.3 kg/m2) DIAGNOSIS: Snoring - ICD code R06.83 COMMENTS: This is a home study ordered following a 20 lb weight loss. Study does not meet criteria for obstructive sleep apnea. Please note that home studies tend to underestimate sleep apnea severity, thus a home study cannot exclude the persistence of obstructive sleep apnea. Of note, the patient's recent CPAP download demonstrates pressure delivery ranging from 7.2 - 10 cmH2O, indicating there is still airway resistance. TREATMENT CONSIDERATIONS: Due to the low sensitivity of home sleep studies, an in lab polysomnogram is recommended to furtherevaluate for the presence of sleep disordered breathing. documented in this encounterCh[facility]09-02-2025 Telephone encounter Note* Telephone Encounter - Shauna Peacock MD - 12/02/2024 12:29 PM EDT JONATAN ALVARADO) ordered HST Results below Please follow up results with patient, I did not send any correspondence with results Thank you Home sleep apnea test on 11/11/2024 (JOSE (3%)=3.2 events/hour; JOSE (4%)=1.3 events/hour; Misha SpO2=94.0%; Pcjuzn=734.0 lbs; BMI=38.3 kg/m2) DIAGNOSIS: Snoring - ICD code R06.83 COMMENTS: This is a home study ordered following a 20 lb weight loss. Study does not meet criteria for obstructive sleep apnea. Please note that home studies tend to underestimate sleep apnea severity, thus a home study cannot exclude the persistence of obstructive sleep apnea. Of note, the patient's recent CPAP download demonstrates pressure delivery ranging from 7.2 - 10 cmH2O, indicating there is still airway resistance. TREATMENT CONSIDERATIONS: Due to the low sensitivity of home sleep studies, an in lab polysomnogram is recommended to furtherevaluate for the presence of sleep disordered breathing. [employer] Work Phone: [phone] 181-489609-02-2025 History of Present illness Narrative* Iqra Donovan, GLASS TECHNOLOGIST-SCREEN PRINTING EQUIPMENT SETTER - 12/02/2024 10:35 AM EDT Subjective: Patient ID: Arabella Hernandez is a 34 y.o. female. Chief Complaint Patient presents with Sprains/Strains Entered by patient rolled her ankle a few weeks ago. Not getting better. Feels like it's getting worse. If doing xray is requesting pregnany test. Left ankle. HPI Rolled left ankle and fell Had on sandals slipped and fell Pain is getting worse and not getting better Pain to both sides of ankle Worse with ambulation and was not feet a lot this weekend Happened 2 weeks ago and getting worse The following portions of the patient's history were reviewed and updated as appropriate: allergies, current medications, past family history, past medical history, past social history, past surgicalhistory and problem list. Review of Systems Constitutional: Negative for chills and fever. Musculoskeletal: Ankle pain Neurological: Negative for weakness and numbness. Past Medical History: Diagnosis Date Anxiety Carpal tunnel syndrome Depression Enlarged ovary GERD (gastroesophageal reflux disease) Liver disease Low back pain Obesity Sleep apnea cpap Visual impairment Past Surgical History: Procedure Laterality Date ARM SURGERY 06-02-2024 Carpal tunnel release surgery on right hand CARPAL TUNNEL RELEASE Right SECTION 09/24/2023 DAVINCI REPAIR HERNIA UMBILICAL WITH MESH N/A 02/26/2024 Performed by Mari Arora MD at [facility] DAVINCI REPAIR HERNIA VENTRAL WITH MESH N/A 02/26/2024 Performed by Mari Arora MD at [facility] ESOPHAGOGASTRODUODENOSCOPY BIOPSY N/A 06/24/2024 Performed by Phong Mcfarlane MD at [facility] ENDOSCOPY ESOPHAGOGASTRODUODENOSCOPY POLYPECTOMY 06/24/2024 Performed by Phong Mcfarlane MD at [facility] ENDOSCOPY EXPLORATORY LAPAROTOMY INJECTION MEDIAL BRANCH NERVE BLOCK Bilateral L 4/5, 5/1 Bilateral 10/31/2019 Performed by Mina Silva MD at [facility] INJECTION MEDIAL BRANCH NERVE BLOCK Bilateral L 4/5,5/1 Bilateral 09/19/2019 Performed by Mina Silva MD at [facility] INJECTION SACROILIAC NERVE Bilateral 05/02/2019 Performed by Mina Silva MD at [facility] WISDOM TOOTH EXTRACTION 09/2011 Social History Tobacco Use Smoking status: Former Current packs/day: 0.50 Average packs/day: 0.5 packs/day for 10.0 years (5.0 ttl pk-yrs) Types: Cigarettes, Vaping/E-cigarettes Smokeless tobacco: Never Vaping Use Vaping status: Never Used Substance Use Topics Alcohol use: Not Currently Alcohol/week: 1.0 standard drink of alcohol Types: 1 Drinks containing 0.5 oz of alcohol per week Comment: Occasional Drug use: No Family History Problem Relation Age of Onset Hypertension Mother Alcohol abuse Mother COPD Mother Depression Mother Mental illness Mother Other Mother benign breast lumpectomies Lupus Paternal Aunt Breast cancer Maternal Grandmother 50 cause of Diabetes Maternal Grandfather Depression Maternal Grandfather Mental illness Maternal Grandfather Cancer Paternal Grandmother oral Heart disease Paternal Grandfather Glaucoma Neg Hx Macular degeneration Neg Hx Colon cancer Neg Hx No Known Allergies Current Outpatient Medications on File Prior to Visit Medication Sig Dispense Refill acidophilus-pectin, citrus 100 million cell-10 mg capsule Take 1 capsule by mouth in the morning. cranberry fruit (CRANBERRY) 450 mg tablet Take 1 tablet by mouth in the morning. magnesium oxide (MAGOX) 400 mg tablet Take 1 tablet by mouth in the morning and 1 tablet before bedtime 30 tablet 2 omeprazole (PriLOSEC) 20 mg capsule Take 1 capsule (20 mg total) by mouth in the morning and 1 capsule (20 mg total) in the evening. Take before meals. 60 capsule 11 28 mg iron- 800 mcg tablet PLUS, CALCIUM CARB, 27 mg iron- 1 mg tablet Take 1 tablet by mouth in the morning. Indications: a patient who is producing milk and . SLYND 4 mg (28) tablet Take 4 mg by mouth in the morning. No current facility-administered medications on file prior to visit. Objective: Vitals: 12/02/24 1119 BP: 114/77 Pulse: 98 Resp: 17 Temp: 36.6 C (97.8 F) TempSrc: Temporal SpO2: 100% Weight: 90.7 kg (200 lb) No LMP recorded. (Menstrual status: ). The patient is currently . Body mass index is 37.79 kg/m . Facility age limit for growth %ana is 20 years. Physical Exam Vitals reviewed. Constitutional: Appearance: Normal appearance. Eyes: Conjunctiva/sclera: Conjunctivae normal. Pulmonary: Effort: Pulmonary effort is normal. No respiratory distress. Musculoskeletal: Left ankle: Tenderness present over the lateral malleolus and medial malleolus. Skin: General: Skin is warm and dry. Neurological: Mental Status: She is alert. Assessment/Plan: X-ray ankle left minimum 3 views Result Date: 12/02/2024 Narrative: History: Pain. Acute pain twisting injury Study: Left Ankle Three view study. Comparison: None Impression: * Nondisplaced versus incomplete transversely oriented fracture of the lateral malleolus is appreciated. There is some sclerosis indicating subacute in age. No concerning soft tissue swelling. No syndesmotic widening. Consider follow-up with orthopedics.. Finalized by Yadi Sanchez MD on 12/02/2024 11:43 AM X-rays show a fracture of the lateral malleolus. There is some bony growth suggest that this is subacute which correlates with patient's presentation of falling 3 weeks [address] will place her on a walking boot and have her follow up with the ankle specialist. She is told to ice and elevate take Motrin Tylenol for pain Arabella was seen today for sprains/strains. Diagnoses and all orders for this visit: Missed menses - POCT , urine Closed fracture of left ankle, initial encounter - X-ray ankle left minimum 3 views - Walking boot - [facility] - [place], [place]; Future No orders of the defined types were placed in this encounter. Patient Instructions Please consider immediate medical re-evaluation from a healthcare provider for any worsening, concerning, or new symptoms. Please contact your primary care physician's office within the next 1-2 business days to share the information that has been discussed with you during today's visit. If you do not have a primary carephysician, please contact [phone]. Please consider returning to urgent care or the nearest emergency dept. for evaluation of non-improving symptoms until you are established with a primary care practice. If you have been prescribed any medications during your visit today, those medications have been discussed with you including: Dose, frequency, duration, and potential side effects. Every individual responds differently to each medication, please use caution until you understand how each medicationaffects you individually. If you have been recommended [id number] medications please use those medications as indicated on their packaging detail. This note is dictated with the use of M*Modal.Please note that this dictation was completed with computer voice recognition software. Quite often unanticipated grammatical, syntax, homophones, and other interpretive errors are inadvertently transcribed by the computer software. Please disregard these errors. Please excuse any errors that have escaped final proofreading. I personally discussed test results with patient/parent. Education handout and discharge papers given. Paperwork explained. Denies questions or concerns. Discussed that follow up care is usually required after a visit to the Urgent care. It is your responsibility to contact your primary care provider for follow up. If symptoms are not improving, worsening, or concerning symptoms of illness develop, follow up withyour primary care provider or go to the nearest Emergency Department for further care immediately. JEANINE Burton 12/02/24 1223 documented in this encounterK[facility] CenterBenef[facility] Up Health [id number] Instructions* Patient Instructions* JEANINE Burton - 12/02/2024 10:35 AM EDT Please consider immediate medical re-evaluation from a healthcare provider for any worsening, concerning, or new symptoms. Please contact your primary care physician's office within the next 1-2 business days to share the information that has been discussed with you during today's visit. If you do not have a primary carephysician, please contact [phone]. Please consider returning to urgent care or the nearest emergency dept. for evaluation of non-improving symptoms until you are established with a primary care practice. If you have been prescribed any medications during your visit today, those medications have been discussed with you including: Dose, frequency, duration, and potential side effects. Every individual responds differently to each medication, please use caution until you understand how each medicationaffects you individually. If you have been recommended [id number] medications please use those medications as indicated on their packaging detail. * Attachments The following attachments cannot be sent through Care Everywhere. * Ankle fracture (N[place]ien) documented in this encounterCh[facility]08-14-2025 History of Present illness Narrative* JEANINE Mallory - 11/13/2024 11:15 AM EDT Subjective: Patient ID: Arabella Hernandez is a 34 y.o. female. Chief Complaint Patient presents with Sore Throat Most likely strep throat. Low grade fever and slight cough. Swollen neck and lymph nodes. - Enteredby patient Patient presents with sore throat and cough for 3 days. States she had strep on 10/25 and was give Amoxicillin and 1 dose of steroids. She was feeling better. Her 8 year old daughter has strep now as well. She has taken Tylenol and had minimal relief. The following portions of the patient's history were reviewed and updated as appropriate: allergies, current medications, past family history, past medical history, past social history, past surgicalhistory and problem list. Review of Systems Constitutional: Positive for fever. Negative for chills. HENT: Positive for congestion (mild), ear pain (bilateral), sinus pressure and sore throat. Respiratory: Positive for cough (productive). Gastrointestinal: Positive for nausea. Negative for diarrhea and vomiting. Musculoskeletal: Negative for myalgias. Neurological: Positive for headaches (resolved). Past Medical History: Diagnosis Date Anxiety Carpal tunnel syndrome Depression Enlarged ovary GERD (gastroesophageal reflux disease) Liver disease Low back pain Obesity Sleep apnea cpap Visual impairment Past Surgical History: Procedure Laterality Date ARM SURGERY 06-02-2024 Carpal tunnel release surgery on right hand CARPAL TUNNEL RELEASE Right SECTION 09/24/2023 DAVINCI REPAIR HERNIA UMBILICAL WITH MESH N/A 02/26/2024 Performed by Mari Arora MD at [facility] DAVINCI REPAIR HERNIA VENTRAL WITH MESH N/A 02/26/2024 Performed by Mari Arora MD at [facility] ESOPHAGOGASTRODUODENOSCOPY BIOPSY N/A 06/24/2024 Performed by Phong Mcfarlane MD at [facility] ENDOSCOPY ESOPHAGOGASTRODUODENOSCOPY POLYPECTOMY 06/24/2024 Performed by Phong Mcfarlane MD at [facility] ENDOSCOPY EXPLORATORY LAPAROTOMY INJECTION MEDIAL BRANCH NERVE BLOCK Bilateral L 4/5, 5/1 Bilateral 10/31/2019 Performed by Mina Silva MD at [facility] INJECTION MEDIAL BRANCH NERVE BLOCK Bilateral L 4/5,5/1 Bilateral 09/19/2019 Performed by Mina Silva MD at [facility] INJECTION SACROILIAC NERVE Bilateral 05/02/2019 Performed by Mina Silva MD at [facility] WISDOM TOOTH EXTRACTION 09/2011 Social History Tobacco Use Smoking status: Former Current packs/day: 0.50 Average packs/day: 0.5 packs/day for 10.0 years (5.0 ttl pk-yrs) Types: Cigarettes, Vaping/E-cigarettes Smokeless tobacco: Never Vaping Use Vaping status: Never Used Substance Use Topics Alcohol use: Not Currently Alcohol/week: 1.0 standard drink of alcohol Types: 1 Drinks containing 0.5 oz of alcohol per week Comment: Occasional Drug use: No Family History Problem Relation Age of Onset Hypertension Mother Alcohol abuse Mother COPD Mother Depression Mother Mental illness Mother Other Mother benign breast lumpectomies Lupus Paternal Aunt Breast cancer Maternal Grandmother 50 cause of Diabetes Maternal Grandfather Depression Maternal Grandfather Mental illness Maternal Grandfather Cancer Paternal Grandmother oral Heart disease Paternal Grandfather Glaucoma Neg Hx Macular degeneration Neg Hx Colon cancer Neg Hx No Known Allergies Current Outpatient Medications on File Prior to Visit Medication Sig Dispense Refill acidophilus-pectin, citrus 100 million cell-10 mg capsule Take 1 capsule by mouth in the morning. cranberry fruit (CRANBERRY) 450 mg tablet Take 1 tablet by mouth in the morning. magnesium oxide (MAGOX) 400 mg tablet Take 1 tablet by mouth in the morning and 1 tablet before bedtime 30 tablet 2 omeprazole (PriLOSEC) 20 mg capsule Take 1 capsule (20 mg total) by mouth in the morning and 1 capsule (20 mg total) in the evening. Take before meals. 60 capsule 11 28 mg iron- 800 mcg tablet PLUS, CALCIUM CARB, 27 mg iron- 1 mg tablet Take 1 tablet by mouth in the morning. Indications: a patient who is producing milk and . SLYND 4 mg (28) tablet Take 4 mg by mouth in the morning. cholecalciferol (VITAMIN D3) 50,000 units capsule Take 1 capsule (50,000 Units total) by mouth oncea week. Once this script is done get an over the counter Vit D3 2,000 unit taking one daily. 7 capsule 0 escitalopram (LEXAPRO) 10 mg tablet Take 1 tablet (10 mg total) by mouth in the morning. (Patient not taking: Reported on 11/13/2024) 30 tablet 2 No current facility-administered medications on file prior to visit. Objective: Vitals: 11/13/24 1125 BP: 113/66 Pulse: 94 Resp: 16 Temp: 36.7 C (98 F) TempSrc: Temporal SpO2: 98% Weight: 90.7 kg (200 lb) Height: 154.9 cm (5' 1 ) No LMP recorded (lmp unknown). (Menstrual status: ). The patient is currently . Body mass index is 37.79 kg/m . Facility age limit for growth %ana is 22 years. Physical Exam Vitals and nursing note reviewed. Constitutional: General: She is not in acute distress. Appearance: Normal appearance. She is not ill-appearing. HENT: Head: Normocephalic and atraumatic. Right Ear: Tympanic membrane, ear canal and external ear normal. Left Ear: Tympanic membrane, ear canal and external ear normal. Nose: Congestion present. Mouth/Throat: Lips: [place]. Mouth: Mucous membranes are moist. Pharynx: Oropharynx is clear. Uvula midline. Posterior oropharyngeal erythema present. No pharyngeal swelling, oropharyngeal exudate, uvula swelling or postnasal drip. Eyes: General: Right eye: No discharge. Left eye: No discharge. Extraocular Movements: Extraocular movements intact. Conjunctiva/sclera: Conjunctivae normal. Cardiovascular: Rate and Rhythm: Normal rate and regular rhythm. Pulses: Normal pulses. Heart sounds: Normal heart sounds. Pulmonary: Effort: Pulmonary effort is normal. Breath sounds: Normal breath sounds. Musculoskeletal: Cervical back: Normal range of motion and neck supple. Skin: General: Skin is warm and dry. Capillary Refill: Capillary refill takes less than 2 seconds. Neurological: General: No focal deficit present. Mental Status: She is alert and oriented to person, place, and time. Assessment/Plan: POCT Strep PCR positive. Keflex to pharmacy. Discussed OTC supportive care/strep protocol. POCT Flu/Covid/RSV negative. Follow up with PCP if no improvement or worsening of symptoms. Labs for this visit: Office Visit on 11/13/2024 Component Date Value External Strep A Cepheid 11/13/2024 Detected (A) External Poct Influenza * 11/13/2024 Negative External Poct Influenza * 11/13/2024 Negative External Poct Sars Cov 2* 11/13/2024 Negative External Poct Rsv Cepheid 11/13/2024 Negative Arabella was seen today for sore throat. Diagnoses and all orders for this visit: Strep pharyngitis - CEPHalexin (KEFLEX) 500 mg capsule; Take 1 capsule (500 mg total) by mouth in the morning and 1 capsule (500 mg total) before bedtime. Do all this for 10 days. Sore throat - POCT Xpert, Xpress Strep A (Cepheid) Encounter for screening for COVID-19 - POCT Xpert, Xpress CoV-2, FLU, RSV Plus (Cepheid) Orders Placed or Reconciled This Encounter Medications CEPHalexin (KEFLEX) 500 mg capsule Sig: Take 1 capsule (500 mg total) by mouth in the morning and 1 capsule (500 mg total) before bedtime. Do all this for 10 days. Dispense: 20 capsule Refill: 0 Patient Instructions Strep throat is very contagious. Wash your hands often with soap and water for at least 15 seconds,especially after coughing or sneezing. Alcohol-based hand sanitizers also work to kill the germs. If you are sick, cover your mouth and nose with tissue when you cough or sneeze. You can also coughinto your elbow. Throw away tissues in the trash and wash your hands after touching used tissues. CHANGE YOUR TOOTHBRUSH AT DAY 2 AND DAY 10 OF ANTIBIOTICS Gargle with warm salt water a few times daily. Mix 1/2 teaspoon (2.5 grams) salt with a cup (240 mL) of warm water. Use a cool mist humidifier to keep your throat moist. Drink lots of water, juice, or broth. Suck on ice chips or throat lozenges to ease pain. Complete full course of oral antibiotics as directed You should be without fever for 24 hours prior to returning to school or work and have completed one full day of oral antibiotics. If no improvement in symptoms over the next 2-3 days or worsening of symptoms, you should seek reevaluation Please note: I cannot rule out tonsillar abscess in the urgent care setting due to limited testing.Red flags and signs of tonsillar abscess include but are not limited to: Hot potato/muffled voice , uvula deviation with trouble swallowing, including inability to swallow saliva If pt should develop any signs of tonsillar abscess, pt should present immediately to the emergencyroom for further evaluation and management. If symptoms are not improving, worsening, or concerning symptoms of illness develop and you are unable to follow up with a primary care provider, please return here or go to the nearest Emergency Department for further care immediately. This note is dictated with the use of M*Modal.Please note that this dictation was completed with computer voice recognition software. Quite often unanticipated grammatical, syntax, homophones, and other interpretive errors are inadvertently transcribed by the computer software. Please disregard these errors. Please excuse any errors that have escaped final proofreading. I personally discussed test results with patient/parent. ATTESTATION: Patient seen in conjunction with Joan MARTIN Student. All documentation wasreviewed for accuracy. HPI and Physical Exam were verified by myself. Plan of care developed with my input and approval. Education handout and discharge papers given. Paperwork explained. Denies questions or concerns. Discussed that follow up care is usually required after a visit to the Urgent care. It is your responsibility to contact your primary care provider for follow up. If symptoms are not improving, worsening, or concerning symptoms of illness develop, follow up withyour primary care provider or go to the nearest Emergency Department for further care immediately. JEANINE Mallory 11/13/24 1210 documented in [facility] encounter[facility]25 Instructions* Patient Instructions* JEANINE Mallory - 11/13/2024 11:15 AM EDT Strep throat is very contagious. Wash your hands often with soap and water for at least 15 seconds,especially after coughing or sneezing. Alcohol-based hand sanitizers also work to kill the germs. If you are sick, cover your mouth and nose with tissue when you cough or sneeze. You can also coughinto your elbow. Throw away tissues in the trash and wash your hands after touching used tissues. CHANGE YOUR TOOTHBRUSH AT DAY 2 AND DAY 10 OF ANTIBIOTICS Gargle with warm salt water a few times daily. Mix 1/2 teaspoon (2.5 grams) salt with a cup (240 mL) of warm water. Use a cool mist humidifier to keep your throat moist. Drink lots of water, juice, or broth. Suck on ice chips or throat lozenges to ease pain. Complete full course of oral antibiotics as directed You should be without fever for 24 hours prior to returning to school or work and have completed one full day of oral antibiotics. If no improvement in symptoms over the next 2-3 days or worsening of symptoms, you should seek reevaluation Please note: I cannot rule out tonsillar abscess in the urgent care setting due to limited testing.Red flags and signs of tonsillar abscess include but are not limited to: Hot potato/muffled voice , uvula deviation with trouble swallowing, including inability to swallow saliva If pt should develop any signs of tonsillar abscess, pt should present immediately to the emergencyroom for further evaluation and management. If symptoms are not improving, worsening, or concerning symptoms of illness develop and you are unable to follow up with a primary care provider, please return here or go to the nearest Emergency Department for further care immediately. documented in this encounterCh[facility]07-30-2025 Miscellaneous Notes* Telephone Encounter - ОЛЬГА Sibley - 10/29/2024 9:54 AM EDT TS patient - LVM for patient to return call to schedule genetics results phone disclosure. x1 * Telephone Encounter - ОЛЬГА Sibley - 10/29/2024 9:54 AM EDT Patient returned call and LVM. I returned call back and had to LVM. * Telephone Encounter - ОЛЬГА Sibley - 10/29/2024 9:54 AM EDT Arabella Hernandez : 1990 DOS: 10/29/24 This is the follow up genetics documentation for Arabella Hernandez who pursued genetic counseling at the request of Dr. Rao Guadalupe to discuss her family history of breast cancer. I spent less than 15 minutes over the phone with her, discussing her negative test results. The patient was originally seen by Ariana Christopher. Summary: Ms. Hernandez underwent [employer] Multi Cancer Panel + RNA testing through [facility] for 70 genes. No mutations were found. Medical History: For the complete medical history, see the clinic note from the original genetic counseling visit. Ms. Hernandez is a woman who has no history of cancer at age 34 y.o. She recently had her first mammogram (performed early due to family history), which was normal. Her ovaries and uterus are intact. Ms. Hernandez has no history of skin cancer. She has not yet had a colonoscopy, which is expected given her young age. Family History: The pedigree was documented and is available in the electronic medical record. Family History Problem Relation Age of Onset Other Mother benign breast lumpectomies Breast cancer Maternal Grandmother 50 cause of Cancer Paternal Grandmother oral Test Results and Interpretation: The following genes on [employer] Multi Cancer Panel + RNA were tested for sequence and deletion/duplication errors (70 total): AIP, ALK, APC, PAZ, AXIN2, BAP1, BARD1, BLM, BMPR1A, BRCA1, BRCA2, BRIP1, CDC73, CDH1, CDK4, CDKN1B, CDKN2A, CHEK2, CTNNA1, DICER1, EGFR, EPCAM (deletion/duplication testing only (NM_002354.2)), FH, FLCN, GREM1 (promoter region duplication testing only), HOXB13, KIT, LZTR1,MAX, MBD4, MEN1, MET, MITF (c.952G>A, p.Zpy329Mtf variant only), MLH1, MSH2, MSH3, MSH6, MUTYH, NF1, NF2, NTHL1, PALB2, PDGFRA, PMS2, POLD1, POLE, POT1, [id number], PTCH1, PTEN, RAD51C, RAD51D, RB1, RET, SDHA (sequencing only), SDHAF2, SDHB, SDHC, SDHD, SMAD4, SMARCA4, SMARCB1, SMARCE1, STK11, SUFU, [id number], TP53, TSC1, TSC2, and VHL . No mutations were identified. Testing was completed September 2024. Testing included analysis of the RNA product of 56 of these genes to identify mutations which might be missed with DNA analysis alone. Because testing was initiated in an individual without a personal history of the cancers associatedwith these genes, the results are considered inconclusive in defining her exact risk of developing the cancers seen in her family. There are several ways to interpret why a pathogenic mutation was not identified: There may be a detectable mutation in one of these genes in her family that she did not inherit. There may be a mutation in these genes that is not detectable by current commercial testing. There may be a gene yet to be identified and described that is responsible for her family history of cancer. The cancers in her family may be sporadic/environmental and not due to a genetic predisposition. Risk Assessment: Her recent mammogram report at the breast center calculated her TC score to be 27%. Once we add in her negative genetic testing, her risk is decreased. Patient states she still plans on scheduling breast MRI as it was previously recommended. Defer to newer TC score that will be calculated in 2025 at time of next mammogram. If it continues to be above 20%, then mammogram and breast MRI recommendations would be ongoing. Ms. Hernandez understands that her risk to develop the cancers seen in her family remains elevated because of her family history. Genetic counseling and testing is recommended for her maternal family members and siblings, who mayhave a mutation which Ms. Hernandez did not inherit. For family members in [facility] and [facility], a genetic counseling appointment can be scheduled at a [facility] facility by calling [phone]. A physician referral is required and can be faxed to [phone]. For those who are not in the area, a local genetic counselor can be found at [facility]. Plan: 1. Inform relatives of uninformative negative results. 2. Ms. Hernandez remains at increased risk of the cancers seen in the family and should discuss screening with her physician. 3. Encourage maternal family members and siblings to be tested. Testing in relatives may help us tobetter interpret Ms. Hernandez's results. A copy of this letter is being sent to Ms. Hernandez for her records. As genetics progresses, we expect that additional genes will be discovered and will become available for testing. Ms. Hernandez should contact us every couple years to learn if updated testing is available. If you have any questions, please feel free to call the office at [phone]. Sincerely, ОЛЬГА SIBLEY Licensed Certified Genetic Counselor CC: DO Montrell Snyder, JEANINE Total time spent was less than 15 minutes on date of encounter: Reviewing and interpreting genetic testing results (not reported separately) Communicating results to the patient/family/caregiver Documenting results disclosure in the electronic health record documented in this encounterKettering [facility] So[facility] CenterAito BV [id number] Telephone encounter Note* Telephone Encounter - ОЛЬГА Sibley - 10/29/2024 9:54 AM EDT TS patient - LVM for patient to return call to schedule genetics results phone disclosure. x1 [facility] Work Phone: [phone] Telephone encounter Note* Telephone Encounter - ОЛЬГА Sibley - 10/29/2024 9:54 AM EDT Patient returned call and LVM. I returned call back and had to LVM. [facility] X [id number] Telephone encounter Note* Telephone Encounter - ОЛЬГА Sibley - 10/29/2024 9:54 AM EDT Arabella Hernandez : 1990 DOS: 10/29/24 This is the follow up genetics documentation for Arabella Hernandez who pursued genetic counseling at the request of Dr. Rao Guadalupe to discuss her family history of breast cancer. I spent less than 15 minutes over the phone with her, discussing her negative test results. The patient was originally seen by Ariana Christopher. Summary: Ms. Hernandez underwent [employer] Multi Cancer Panel + RNA testing through [facility] for 70 genes. No mutations were found. Medical History: For the complete medical history, see the clinic note from the original genetic counseling visit. Ms. Hernandez is a woman who has no history of cancer at age 34 y.o. She recently had her first mammogram (performed early due to family history), which was normal. Her ovaries and uterus are intact. Ms. Hernandez has no history of skin cancer. She has not yet had a colonoscopy, which is expected given her young age. Family History: The pedigree was documented and is available in the electronic medical record. Family History Problem Relation Age of Onset Other Mother benign breast lumpectomies Breast cancer Maternal Grandmother 50 cause of Cancer Paternal Grandmother oral Test Results and Interpretation: The following genes on [employer] Multi Cancer Panel + RNA were tested for sequence and deletion/duplication errors (70 total): AIP, ALK, APC, PAZ, AXIN2, BAP1, BARD1, BLM, BMPR1A, BRCA1, BRCA2, BRIP1, CDC73, CDH1, CDK4, CDKN1B, CDKN2A, CHEK2, CTNNA1, DICER1, EGFR, EPCAM (deletion/duplication testing only (NM_002354.2)), FH, FLCN, GREM1 (promoter region duplication testing only), HOXB13, KIT, LZTR1,MAX, MBD4, MEN1, MET, MITF (c.952G>A, p.Ucb415Kcb variant only), MLH1, MSH2, MSH3, MSH6, MUTYH, NF1, NF2, NTHL1, PALB2, PDGFRA, PMS2, POLD1, POLE, POT1, [id number], PTCH1, PTEN, RAD51C, RAD51D, RB1, RET, SDHA (sequencing only), SDHAF2, SDHB, SDHC, SDHD, SMAD4, SMARCA4, SMARCB1, SMARCE1, STK11, SUFU, [id number], TP53, TSC1, TSC2, and VHL . No mutations were identified. Testing was completed September 2024. Testing included analysis of the RNA product of 56 of these genes to identify mutations which might be missed with DNA analysis alone. Because testing was initiated in an individual without a personal history of the cancers associatedwith these genes, the results are considered inconclusive in defining her exact risk of developing the cancers seen in her family. There are several ways to interpret why a pathogenic mutation was not identified: There may be a detectable mutation in one of these genes in her family that she did not inherit. There may be a mutation in these genes that is not detectable by current commercial testing. There may be a gene yet to be identified and described that is responsible for her family history of cancer. The cancers in her family may be sporadic/environmental and not due to a genetic predisposition. Risk Assessment: Her recent mammogram report at the breast center calculated her TC score to be 27%. Once we add in her negative genetic testing, her risk is decreased. Patient states she still plans on scheduling breast MRI as it was previously recommended. Defer to newer TC score that will be calculated in 2025 at time of next mammogram. If it continues to be above 20%, then mammogram and breast MRI recommendations would be ongoing. Ms. Hernandez understands that her risk to develop the cancers seen in her family remains elevated because of her family history. Genetic counseling and testing is recommended for her maternal family members and siblings, who mayhave a mutation which Ms. Hernandez did not inherit. For family members in [facility] and [facility], a genetic counseling appointment can be scheduled at a [facility] facility by calling [phone]. A physician referral is required and can be faxed to [phone]. For those who are not in the area, a local genetic counselor can be found at [facility]. Plan: 1. Inform relatives of uninformative negative results. 2. Ms. Hernandez remains at increased risk of the cancers seen in the family and should discuss screening with her physician. 3. Encourage maternal family members and siblings to be tested. Testing in relatives may help us tobetter interpret Ms. Hernandez's results. A copy of this letter is being sent to Ms. Hernandez for her records. As genetics progresses, we expect that additional genes will be discovered and will become available for testing. Ms. Hernandez should contact us every couple years to learn if updated testing is available. If you have any questions, please feel free to call the office at [phone]. Sincerely, ОЛЬГА SIBLEY Licensed Certified Genetic Counselor CC: DO Montrell Snyder, JEANINE Total time spent was less than 15 minutes on date of encounter: Reviewing and interpreting genetic testing results (not reported separately) Communicating results to the patient/family/caregiver Documenting results disclosure in the electronic health record [facility]07-[facility] Miscellaneous Notes* Telephone Encounter - Firda Alves - 10/22/2024 12:13 PM EDT 10/21 Order received Called PT LM to schedule sleep study. HST Order and 10/21 [facility] notes in [facility] documented in this encounterChillicothe Hospital07-23-2025 Telephone encounter Note* Telephone Encounter - Frida Alves - 10/22/2024 12:13 PM EDT 10/21 Order received Called PT LM to schedule sleep study. HST Order and 10/21 [facility] notes in epic [facility] Achieve X [id number] History of Present illness Narrative* Sheba Yan CMA - 10/21/2024 3:25 PM EDT 4 Month Recall Has Been Placed For Follow Up Of KESHIA . documented in this encounterChillicothe Hospital07-22-2025 History of Present illness Narrative* JEANINE Dorado - 10/21/2024 10:30 AM EDT Video Visit via Real-time Synchronous Audiovisual Provider Location: [facility] PULMONARY[facility]SLEEP MEDICINE [address] [place] [address] Patient Location: Patient's home Patient Location Certified Nurses' Aide: None Video Visit Consent Statement: I discussed risks, benefits, and alternatives of a real-time synchronous audiovisual consultation with the patient (and any accompanying persons) including the risks that the patient's personal health details and medical records will be discussed over real-time, synchronous, interactive video/audio/telecommunication technology, the visit will not be recorded withoutthe express consent of both the provider and the patient, and that there are some limitations compared to [id number] evaluations. We elected to proceed. Arabella Hernandez is a 34 y.o. female Patient is doing a video visit today for her yearly compliance visit. Patient has lost approximately 20 lb since her last appointment. Patient reports that she does feel like she is suffocating with her machine. Patient's sleep apnea was very mild on a home test back in 2023. Patient would like to be retested for sleep apnea. Patient also reports that since she has been weaning off of her Lexaprothere some days where she feels like she has a lot of energy. The patient reports that she is nonadherent to her nocturnal ventilatory support for 1-3 hours a night 7 days per week. Denies any aerophagia. Patient denies issues with machine use. She denies any dyspnea, fevers, chills, hemoptysis, wheezing, or chest pain. [place] Sleepiness Scale: Sitting and Reading: Never Watching TV: Never Sitting inactive in a public place (theater, meeting): Never As a passenger in a car for an hour without a break: Never Lying down in the afternoon to rest: Slight Chance Sitting and talking to someone: Never Sitting quietly after lunch (without alcohol): Never In a car, while stopped for a few minutes in traffic: Never Total: 1 OARRS: Reviewed: no PMH: Pertinent History: Her pertinent medical history includes Past Medical History: Diagnosis Date Anxiety Carpal tunnel syndrome Depression Enlarged ovary GERD (gastroesophageal reflux disease) Liver disease Low back pain Obesity Sleep apnea cpap Visual impairment Medications: Reviewed with patient. Current Outpatient Medications: acidophilus-pectin, citrus 100 million cell-10 mg capsule, Take 1 capsule by mouth in the morning.,Disp: , Rfl: cholecalciferol (VITAMIN D3) 50,000 units capsule, Take 1 capsule (50,000 Units total) by mouth once a week. Once this script is done get an over the counter Vit D3 2,000 unit taking one daily., Disp: 7 capsule, Rfl: 0 cranberry fruit (CRANBERRY) 450 mg tablet, Take 1 tablet by mouth in the morning., Disp: , Rfl: escitalopram (LEXAPRO) 10 mg tablet, Take 1 tablet (10 mg total) by mouth in the morning., Disp: 30tablet, Rfl: 2 magnesium oxide (MAGOX) 400 mg tablet, Take 1 tablet by mouth in the morning and 1 tablet before bedtime, Disp: 30 tablet, Rfl: 2 omeprazole (PriLOSEC) 20 mg capsule, Take 1 capsule (20 mg total) by mouth in the morning and 1 capsule (20 mg total) in the evening. Take before meals., Disp: 60 capsule, Rfl: 11 28 mg iron- 800 mcg tablet, , Disp: , Rfl: PLUS, CALCIUM CARB, 27 mg iron- 1 mg tablet, Take 1 tablet by mouth in the morning. Indications: a patient who is producing milk and ., Disp: , Rfl: SLYND 4 mg (28) tablet, Take 4 mg by mouth in the morning., Disp: , Rfl: There were no vitals filed for this visit. Allergies: Reviewed with patient. Patient has no known allergies. Family History: Family History Problem Relation Age of Onset Hypertension Mother Alcohol abuse Mother COPD Mother Depression Mother Mental illness Mother Other Mother benign breast lumpectomies Lupus Paternal Aunt Breast cancer Maternal Grandmother 50 cause of Diabetes Maternal Grandfather Depression Maternal Grandfather Mental illness Maternal Grandfather Cancer Paternal Grandmother oral Heart disease Paternal Grandfather Glaucoma Neg Hx Macular degeneration Neg Hx Colon cancer Neg Hx Social History: Social History Socioeconomic History Marital status: Tobacco Use Smoking status: Former Current packs/day: 0.50 Average packs/day: 0.5 packs/day for 10.0 years (5.0 ttl pk-yrs) Types: Cigarettes, Vaping/E-cigarettes Smokeless tobacco: Never Vaping Use Vaping status: Never Used Substance and Sexual Activity Alcohol use: Not Currently Alcohol/week: 1.0 standard drink of alcohol Types: 1 Drinks containing 0.5 oz of alcohol per week Comment: Occasional Drug use: No Sexual activity: Yes Partners: Male control/protection: OCP Social Drivers of Health Financial Resource Strain: Low Risk (03/14/2024) Overall Financial Resource Strain (CARDIA) Difficulty of Paying Living Expenses: Not hard at all Food Insecurity: No Food Insecurity (06/16/2024) Hunger Screening Food Insecurity - Worry: Never True Food Insecurity - Inability: Never True Transportation Needs: No Transportation Needs (03/14/2024) PRAPARE - Transportation Lack of Transportation (Medical): No Lack of Transportation (Non-Medical): No Housing Instability: Low Risk (03/14/2024) Housing Instability Housing Instability: No Travel History: Denies recent travel. ROS: Review of Systems Constitutional: Negative for fever and chills. HENT: Negative for postnasal drip and rhinorrhea. Respiratory: Negative for cough and shortness of breath. Cardiovascular: Negative for chest pain and palpitations. Physical Examination: Vital signs There were no vitals taken for this visit. Physical Exam No physical examination due to this being a video visit Pulmonary Function: not obtained Laboratory DATA: Lab Results Component Value Date CO2 25 05/09/2024 Lab Results Component Value Date TSH 1.47 07/05/2024 Lab Results Component Value Date WBC 7.6 12/13/2023 HGB 11.9 12/13/2023 HCT 37.3 12/13/2023 MCV 77 (L) 12/13/2023 PLT 275 12/13/2023 No results found for: FERRITIN Chemistry Component Value Date/Time K 4.2 05/09/2024 1149 CL 105 05/09/2024 1149 CO2 25 05/09/2024 1149 BUN 9 05/09/2024 1149 CREATININE 0.78 05/09/2024 1149 GLU 98 05/09/2024 1149 GLU 92 06/07/2023 1149 Component Value Date/Time CALCIUM 8.9 05/09/2024 1149 ALKPHOS 108 05/09/2024 1149 AST 30 05/09/2024 1149 ALT 32 (H) 05/09/2024 1149 Lab Results Component Value Date TSH 1.47 07/05/2024 No results found. DATA: 08/30/2023 HSAT: AHI = 5.4 Min SpO2 = 92 % weight = 220 lb Face Mask: FFM DME: [facility] Imaging: no studies completed Impression: Diagnoses and all orders for this visit: KESHIA (obstructive sleep apnea) - Home sleep study; Future CPAP use counseling BMI 37.0-37.9, adult KESHIA with nonadherence to nocturnal ventilatory support on a nightly basis. Obesity BMI 37.79 Asthma Anxiety and depression GERD Currently Former smoker Plan: Discussed diagnosis, its evaluation, treatment and usual course. All questions answered. Educational material distributed. Orders Placed This Encounter Procedures Home sleep study Standing Status: Future Expiration Date: 10/21/2025 Follow Up: [facility] Sleep Medicine to read and follow patient. Reason for Study?: G47.19 Excessive daytime sleepiness Reason for Study?: G47.33 Obstructive sleep apnea No orders of the defined types were placed in this encounter. She is to continue CPAP 5-20 cm H20 on a nightly basis. New mask and supplies as needed. A home sleep study is ordered Diet and exercise were discussed in detail. Any age appropriate or routine screening per PCP. Follow up in 4 Months time. If her condition should change prior to this she is encouraged to give our office a call. This encounter was completed completely by video visit. The patient was made aware that this may victor hugo billable service and consented to the video visit. This call lasted approximately 6 minute and more than 50% of the time was spent in direct counseling. EDUCATION: Driving precautions were reviewed. I advised the patient not to drive if sleepy, and to hand assembler for puller over if sleepiness occurs while driving. Above plan as discussed with the patient who acknowledged understanding and agreement. Health risks associated with untreated KESHIA were discussed (cardiopulmonary, cerebrovascular, and anesthesia/sedative-related). Lorie Johnson APRN-RODRICK [facility] Office: [phone] 10:41 AM on 10/21/2024 CC: JEANINE DAI APRN-CNP 10/21/24 1041 documented in this [facility]07-22-2025 Instructions* Patient Instructions* JEANINE Dorado - 10/21/2024 10:30 AM EDT Images from the original note were not included. If you re looking for general health and wellness resources, please visit [email or web address] documented in [facility] Miscellaneous Notes* Telephone Encounter - Darcy Downing LPN - 10/21/2024 9:12 AM EDT Left message to see if patient would like to move her appointment up today with [facility] or change to a video visit. documented in [facility]25 Telephone encounter Note* Telephone Encounter - Darcy Downing LPN - 10/21/2024 9:12 AM EDT Left message to see if patient would like to move her appointment up today with [facility] or change to a video visit. [facility] History of Present illness Narrative* ОЛЬГА Sosa - 10/16/2024 1:00 PM EDT Arabella Hernandez : 1990 DOS: 10/16/2024 This is the initial genetics consultation for Arabella Hernandez who was seen at the request of Dr. Rao Guadalupe to discuss her family history of breast cancer. Ms. Hernandez is seen in the service of Dr. Corinne Greenfield. I spent 35 minutes with Ms. Hernandez collecting and reviewing personal and family medical information, providing genetic risk assessment, and genetic counseling. Ms. Hernandez was accompanied to the appointment by her 1-year-old daughter, Andrew. SUMMARY: Ms. Hernandez has decided to undergo [facility] Cancer Panel testing through [facility] for the following genes related to hereditary cancer (70 total): AIP, ALK, APC, PAZ, AXIN2, BAP1, BARD1, BLM, BMPR1A, BRCA1, BRCA2, BRIP1, CDC73, CDH1, CDK4, CDKN1B, CDKN2A, CHEK2, CTNNA1, DICER1, EGFR, EPCAM, FH, FLCN, GREM1, HOXB13, KIT, LZTR1, MAX, MBD4, MEN1, MET, MITF, MLH1, MSH2, MSH3, MSH6, MUTYH,NF1, NF2, NTHL1, PALB2, PDGFRA, PMS2, POLD1, POLE, POT1, LHCWZ6O, PTCH1, PTEN, RAD51C, RAD51D, RB1,RET, SDHA, SDHAF2, SDHB, SDHC, SDHD, SMAD4, SMARCA4, SMARCB1, SMARCE1, STK11, SUFU, PTGQ280, TP53, TSC1, TSC2, VHL. Results are expected in 2-3 weeks. MEDICAL HISTORY: Ms. Hernandez is a woman who has no history of cancer at age 34 y.o.. She recently had her first mammogram (performed early due to family history), which was normal. She was recommended to considergenetic counseling due to her family history. Her ovaries and uterus are intact. Menarche is reported at 16. She delivered her first child at age26. She has not reached menopause. She has used OCPs for 5-9 years. HRT was denied. Ms. Hernandez has no history of skin cancer. She has not yet had a colonoscopy, which is expected given her young age. Ms. Hernandez smoked from age [age] and then quit, and she has ~1 alcoholic beverages per month. 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 Environmental exposures were denied. FAMILY HISTORY: Family History Problem Relation Age of Onset Other Mother benign breast lumpectomies Breast cancer Maternal Grandmother 50 cause of Cancer Paternal Grandmother oral Ashkenazi Zoroastrianism ancestry is denied. The family history is notable for breast cancer. Ms. Hernandez has 3 children. The pedigree was documented and is available in the electronic medical record. RISK ASSESSMENT: I discussed the possibility of a hereditary cancer syndrome with Ms. Hernandez. Concern for a hereditary cancer predisposition syndrome in her family is moderate. Her maternal grandmother's breast cancer occurred at or even before age 50, which increases concern for a hereditary cause. Her maternal great- grandmother also had breast cancer. Based upon reported personal and/or family history, Ms. Hernandez does meet NCCN guidelines for genetic testing. While Ms. Hernandez's mother would be the best available person to test, Ms. Hernandez does nothave contact with her. Therefore, Ms. Hernandez remains a good candidate for genetic testing. Ms. Hernandez understands that if she tests negative, this may be because there is a mutation in the family that she did not inherit, because the test did not include the culprit gene, or because the cancer in her family was environmental. For this reason, Ms. Hernandez will be considered at increased risk of the cancers in her family until someone else in the family has positive genetic testing. HEREDITARY CANCER GENETIC COUNSELING: We reviewed three different types of cancer: sporadic, familial and hereditary. Sporadic cancer occurs due to environment and chance; there is no genetic test for this type of cancer. About 75-85% ofbreast cancer is thought to be sporadic. Familial cancer is caused by a combination of genetic factors and environmental factors, also known as multifactorial. Familial cancer can be seen in multiple generations but there is not a genetic test for this type of cancer. About 10- 20% of breast cancer is thought to be familial. The last type is hereditary cancer. Hereditary cancer is a genetic predisposition to cancer and is caused by a mutation in a single gene. This is the only type of cancer where risk can be assessed through a genetic test. In addition, when a hereditary cancer and genetic mutation is identified, it is possible to assess risk in relatives of an affected individual. About 5-10% of breast cancer is thought to be hereditary. One in eight women will develop breast cancer during their lifetime. About 5-10% of these breast cancer cases are hereditary, or due to a genetic mutation being passed along in the family. There are genes in our bodies that work to protect us from cancer. When one of these is mutated, a person has less protection and is therefore more likely to develop cancer. An example of this is HBOC (Hereditary Breast and Ovarian Cancer), caused by mutations in the BRCA1 or BRCA2 genes. In the general population, about 1 in 400 people will have a mutation in the BRCA1 and BRCA2 genes (1 in 40 for Ashkenazi Zoroastrianism individuals). The cancer risks for individuals with a BRCA1/2 mutation include breast, ovarian, prostate, male breast, pancreatic, and melanoma. These are highlighted in the table below (NCCN v3.202): Cancer Type General Population Risk with BRCA1 mutation Risk with BRCA2 mutation Female Breast Cancer 12% 60-72% by age 80 55-69% by age 80 Contralateral (2nd) Breast Cancer 2% within 5 years 30-40% within 20 yrs; Up to 60% by age 70 25% within 20 yrs; Up to 62% by age 70 Ovarian Cancer 1-2% 39-58% 13-29% Male Breast Cancer 0.1% 0.2-1.2% 1.8-7.1% Pancreatic Cancer 0.5% <=5% 5-10% Prostate Cancer 12% 7-26% 19-61% Melanoma 2% elevated elevated In addition to BRCA1/2, there are several other genes that are known to increase one's risk for developing breast cancer. These are listed in the table below: Syndromes Associated with Breast Cancer Genes Cancers High Risk Genes Hereditary Breast and Ovarian Cancer syndrome (HBOC) BRCA1, BRCA2 Breast, ovarian, prostate, pancreas, melanoma Li-Fraumeni syndrome TP53 Breast, brain, sarcoma, adrenocortical carcinoma Michael syndrome PTEN Breast, uterine, thyroid, colon, kidney, melanoma Hereditary Diffuse Gastric Cancer syndrome CDH1 Breast (lobular), diffuse gastric PALB2 Hereditary Cancer syndrome PALB2 Breast, pancreatic, ovarian CHEK2 Breast, kidney, prostate, lymphomas PAZ Breast, pancreatic, prostate Moderate Risk Genes Peutz-Jeghers syndrome STK11 Breast, colon, stomach, pancreatic and others Neurofibromatosis type 1 NF1 Breast, neurofibromas, optic glioma BARD1 Breast RAD51C, RAD51D Breast, ovarian Identifying a hereditary predisposition to cancer on a genetic test allows a person to tailor his or her medical management according to personal risk. Women with mutations in high-risk genes may benefit from increased cancer screening or risk-reducing surgery. Women with mutations in moderate riskgenes are followed with increased screening, often including mammogram and breast MRI alternating every 6 months. If Ms. Hernandez tests positive, specific screening recommendations will be discussed atthat time. All of these conditions are inherited in an autosomal dominant manner. Everyone has two copies of every gene in their body: one from each of their biological parents. In a dominant condition, having just one copy with a mutation causes an increased risk of cancer. When a person has a mutation in one of these genes, there is a 50% chance for each of their children to inherit it and also have an increased risk of cancer. TESTING: Genetic tests that cover multiple genes, known as panels, are currently the most efficient way to screen for a genetic cancer predisposition in individuals with suspicious personal and family histories. Laboratories such as [facility], [facility], [facility], and [facility] offer panels of genes for hereditary breast, ovarian, colon cancer, etc. that are increasingly becoming useful in the search of the causative gene. We discussed three potential results: positive for a mutation, negative for a mutation, and a Variant of Unknown Significance (VUS). Positive: If a mutation is found in one of these genes, medical management may be altered accordingly and family members would be offered testing. Each child, full sibling, and parent will be at 50% risk to also have the mutation. Negative: If no mutation is found in the genes tested, there would be no explanation for the cancerin this family. A mutation may not have been found because the person tested did not inherit the mutation in the family, because the test did not include the culprit gene, or because the cancer in the family was environmental rather than hereditary. Screening recommendations would be based on personal risk factors and family history of cancer. Variant of Unknown Significance (VUS): A VUS is a genetic difference where current information makes it impossible to determine if this change contributes to disease (cancer risk) or is harmless. Thelab collects more information over time by testing other people and eventually reclassifies this variant to positive or negative. VUSs are most commonly reclassified to benign and should not be used to change medical management. Reclassification generally happens over the course of several years, but may never happen. Family members should not be tested for VUSs, but should be screened based on family history of cancer. We also addressed the current federal legislation, NANETTE, which protects individuals from genetic discrimination in health insurance and employment. More information is available at www.GINAhelp.org. PLAN: 1. Testing for a panel of hereditary cancer genes was ordered today through [facility]. 2. Results are expected in 2-3 weeks. 3. Results will be discussed over the phone. If a mutation is found, Ms. Hernandez will be invited to come in person to discuss results in more detail. I encouraged Ms. Hernandez to contact me with any questions, concerns, or if the family history changes. I can be reached in the [facility] at [phone]. Thank you, ОЛЬГА Sosa Licensed Certified Genetic Counselor CC: DO Montrell Snyder, [employer] PRINTING EQUIPMENT SETTER Referenced with permission from the NCCN Clinical Practice Guidelines in Oncology (NCCN Guidelines ) for Genetic/Familial High-Risk Assessment: Breast, Ovarian, Pancreatic and Prostate V.3.2024. National Comprehensive Cancer Network, Inc. 2024. All rights reserved. Accessed [10/16/2024]. To view themost recent and complete version of the guideline, go online to NCCN.org. Total time spent was 56 minutes on date of encounter: Preparing to see the patient (e.g., review of medical records and questionnaire) Obtaining personal and family history Performing risk assessment Counseling and educating the patient/family/caregiver Facilitating patient decision-making Ordering genetic testing Documenting initial consultation in the electronic health record documented in this [facility]Ch[facility]06-[facility]25 Miscellaneous Notes* Telephone Encounter - Mi Roberson - 09/22/2024 3:49 PM EDT 09/22/24 pt called, she rec'd a pamphlet from [facility]. I explained our process and she will request a ref. sj * Telephone Encounter - Mi Roberson - 09/22/2024 3:49 PM EDT LVM on 10/08/2024 at 3:52 PM asking patient to return call to schedule genetics appointment. abbe * Telephone Encounter - Mi Roberson - 09/22/2024 3:49 PM EDT 10/15/24 Pt lvm late yesterday returning my call. I reached her and she is scheduled on 10/16 at , [facility] sent mychart, she states that she ck'd her ins and it is covered. abbe * Telephone Encounter - Rehana Mac - 09/22/2024 3:49 PM EDT 10/16/2024, 2:28 PM [facility] Lab kit DRAWN 10/16/24 TAKEN DOWN TO SHIPPING DOCK DOWNLOADED GENETIC CONSULT NOTES & PEDIGREE TO [facility] LR Mailed 10/16/24 Genetics Consult to patient and faxed/routed to all providers ON 10/16/24 LR * Telephone Encounter - Loyda Messina - 09/22/2024 3:49 PM EDT Mailed 10/29/24 Genetics Follow-up to patient and faxed/routed to all providers - 10/30/2024 at 2:26 PM KD documented in this encounterCh[facility]06-23-2025 Telephone encounter Note* Telephone Encounter - Mi Roberson - 09/22/2024 3:49 PM EDT 09/22/24 pt called, she rec'd a pamphlet from [facility]. I explained our process and she will request a ref. sj [facility] Telephone encounter Note* Telephone Encounter - Mi Roberson - 09/22/2024 3:49 PM EDT LVM on 10/08/2024 at 3:52 PM asking patient to return call to schedule genetics appointment. sj [facility] [id number] Telephone encounter Note* Telephone Encounter - Mi Roberson - 09/22/2024 3:49 PM EDT 10/15/24 Pt lvm late yesterday returning my call. I reached her and she is scheduled on 10/16 at [facility] she states that she ck'd her ins and it is covered. sj [facility] [employer] [id number] Telephone encounter Note* Telephone Encounter - Rehana Mac - 09/22/2024 3:49 PM EDT 10/16/2024, 2:28 PM [facility] Lab kit DRAWN 10/16/24 TAKEN DOWN TO SHIPPING DOCK DOWNLOADED GENETIC CONSULT NOTES & PEDIGREE TO [facility] LR Mailed 10/16/24 Genetics Consult to patient and faxed/routed to all providers ON 10/16/24 LR [facility] [employer] [id number] Telephone encounter Note* Telephone Encounter - Loyda Messina - 09/22/2024 3:49 PM EDT Mailed 10/29/24 Genetics Follow-up to patient and faxed/routed to all providers - 10/30/2024 at 2:26 PM KD [facility] [id number] Miscellaneous Notes* Psychiatric Progress Note - Augustina Interiano MD - 08/09/2024 10:00 AM EDT [address] [facility] [id number] Patient: Johnradha Hernandez Date of : 1990 Encounter Date: 08/09/2024 History of Present Illness (Subjective): The patient is a 34 y.o. female, an established patient patient, and [...] reported that she is doing good with Lexapro 10 mg PO daily. Is taking Lexapro 10 mg daily for last 1 month. Is not seeing therapist currently as she is doing good. Is of her 10 months old daughter. She also took Lexapro during her last . Has 3 children (8 y/o daughter, 24 months old son and and 810 months old daughter). Is breast feeding. was finalized with (father of 8 y/o daughter and 21 months old son). Has share custody with ex . Is living with boyfriend (father of 7 months old daughter). Works as neededat [employer]. As per previous note Chart and labs were reviewed. Last time patient was seen for initial psychiatric evaluation on 03/15/2023. Patient reported that she is here to get refill of Lexapro 20 mg PO daily. She is getting refill from her GUN EXAMINER who recommended to see psychiatrist and get refill. Has been taking Lexapro since 04/2023. She also took Lexapro during her last . Stopped taking Zoloft on 04/2023 as she did not like. Pt reported that she is doing good with current medication . As per previous note Chart and labs were reviewed. As per note of JEANINE Dai, PCP on02/08/23 Patient following up for depression anxiety today as this has gotten much worse with panicattacks but she recently found out she was about 5 weeks . She is not willing to start any medications for anxiety while she is until she talks to her OBGYN. She is also 6 months and she is a . She recently moved to [place] and is wanting a primary care referral. She is going through a divorce and her current is with her new relationship . Has 7 months old boy and is not for last 1 month. Has 6 yr old daughter with ex boyfriend. Going through divorce with 7 months old son's and is since 05/2022. She was for more than 1 yr. Relocated to [place] on 08/2022 from [place] for boyfriend of 10 months. Currently patient is with boyfriend. They want to continue . THA is 10/05/23. Has depression andanxiety since 2016. Since then she has been seen by several therapists and a psychiatrist. Last appo intment with psychiatrist was 2 and 1/2 yrs ago. Last appointment with therapist 1 and 1/2 yrs ago.Pt was on Lexapro (few weeks and stopped taking it because 6 yrs ago), Wellbutrin (causedirritability), Ativan (helpful) and Cymbalta (caused foggy vision and took for 6 months). Off medication for last 1 and 1/2 yrs. Has restarted medication since 03/2023 which is prescribed by her GUN EXAMINER. Patient was seen by Maine Meneses LPN on 03/09/23 for initial visit. Has monthly appointment with GUN EXAMINER. Has thought of it would be better not be here off and on for last few months as she is going through financial crisis. Last thought was few weeks ago. Denied any suicidal ideations. Denied any access of guns or weapons. Pt is currently on Lexapro 10 mg PO daily. Compliant with medication with no side effects. Sleep isgood. Depression is 3/10 and anxiety is 4/10 (10 being the [...] will harm her baby too. Patient's boyfriend (baby's father) is supportive. Discussed regarding infanticide.Pt was advised to call 911 or go to nearby ER or share with her BF if she feels baby is not safe orif she wants to harm or hurt her baby. Pt endorsed to understand the discussion. Weigh the risk and benefit of Lexapro on . Lexapro will be continued. Patient was informed Lexapro may be present in milk according to some studies. If child becomes irritable or sedated, breast feed or drug may need to be discontinued. 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 Patient endorsed to understand the discussion. LMP: not have period yet after delivery of baby 10 months ago. Is on OCP. Medications: denied Continue Lexapro 10 mg PO daily for anxiety and depression. 1. Anxiety disorder, unspecified type 2. Recurrent major depressive disorder, in partial remission AIMS none present PHQ 9 = Other Scales used: HAM-A Geriatric Depression Scale: Adult ADD Checklist: [place] Suicide Severity Rating Scale (C-SSRS): low risk Recommendations for Additional Therapies: individual therapy Follow up: 3 months Psychotherapy: Provided Supportive therapy during the session [...] past medical history, past social history, past surgicalhistory and problem list. Past Medical History: Diagnosis Date Anxiety Carpal tunnel syndrome Depression Enlarged ovary GERD (gastroesophageal reflux disease) Liver disease Low back pain Obesity Sleep apnea cpap Visual impairment Past Surgical History: Procedure Laterality Date CARPAL TUNNEL RELEASE Right SECTION 09/24/2023 [facility] REPAIR HERNIA UMBILICAL WITH MESH N/A 02/26/2024 Performed by Mari Arora MD at [facility] DAVINCI REPAIR HERNIA VENTRAL WITH MESH N/A 02/26/2024 Performed by Mari Arora MD at [facility] ESOPHAGOGASTRODUODENOSCOPY BIOPSY N/A 06/24/2024 Performed by Phong Mcfarlane MD at [facility] ENDOSCOPY ESOPHAGOGASTRODUODENOSCOPY POLYPECTOMY 06/24/2024 Performed by Phong Mcfarlane MD at [facility] ENDOSCOPY EXPLORATORY LAPAROTOMY INJECTION MEDIAL BRANCH NERVE BLOCK Bilateral L 4/5, 5/1 Bilateral 10/31/2019 Performed by Mina Silva MD at [facility] INJECTION MEDIAL BRANCH NERVE BLOCK Bilateral L 4/5,5/1 Bilateral 09/19/2019 Performed by Mina Silva MD at [facility] INJECTION SACROILIAC NERVE Bilateral 05/02/2019 Performed by Mina Silva MD at [facility] WISDOM TOOTH EXTRACTION 09/2011 Current Outpatient Medications Medication Sig Dispense Refill acidophilus-pectin, citrus 100 million cell-10 mg capsule Take 1 capsule by mouth in the morning. cholecalciferol (VITAMIN D3) 50,000 units capsule Take 1 capsule (50,000 Units total) by mouth oncea week. Once this script is done get an over the counter Vit D3 2,000 unit taking one daily. 7 capsule 0 cranberry fruit (CRANBERRY) 450 mg tablet Take 1 tablet by mouth in the morning. escitalopram (LEXAPRO) 10 mg tablet Take 1 tablet (10 mg total) by mouth in the morning. 30 tablet 2 magnesium oxide (MAGOX) 400 mg tablet Take 1 tablet by mouth in the morning and 1 tablet before bedtime 30 tablet 2 omeprazole (PriLOSEC) 20 mg capsule Take 1 capsule (20 mg total) by mouth in the morning and 1 capsule (20 mg total) in the evening. Take before meals. 60 capsule 11 28 mg iron- 800 mcg tablet PLUS, CALCIUM CARB, 27 mg iron- 1 mg tablet Take 1 tablet by mouth in the morning. Indications: a patient who is producing milk and . SLYND 4 mg (28) tablet Take 4 mg by mouth in the morning. No current facility-administered medications for this visit. [...] History Substance and Sexual Activity Alcohol Use Not Currently Alcohol/week: 1.0 standard drink of alcohol Types: [...] pain Review of Systems: Review of Systems All other systems reviewed and are negative. Physical Exam: There were no vitals taken for this visit. Mental Status Evaluation: Appearance: age appropriate, casually dressed, and overweight Behavior: normal Speech: normal pitch and normal volume Mood: good Affect: normal Thought Process: normal Thought Content: normal Sensorium: person, place, time/date, situation, day of week, and month of year Cognition: grossly intact Insight: fair Judgment: fair Assessment and Plan: Diagnoses and all orders for this visit: Anxiety disorder, unspecified type - escitalopram (LEXAPRO) 10 mg tablet; Take 1 tablet (10 mg total) by mouth in the morning. Recurrent major depressive disorder, in partial remission - escitalopram (LEXAPRO) 10 mg tablet; Take 1 tablet (10 mg total) by mouth in the morning. Current Outpatient Medications: acidophilus-pectin, citrus 100 million cell-10 mg capsule, Take 1 capsule by mouth in the morning.,Disp: , Rfl: cholecalciferol (VITAMIN D3) 50,000 units capsule, Take 1 capsule (50,000 Units total) by mouth once a week. Once this script is done get an over the counter Vit D3 2,000 unit taking one daily., Disp: 7 capsule, Rfl: 0 cranberry fruit (CRANBERRY) 450 mg tablet, Take 1 tablet by mouth in the morning., Disp: , Rfl: escitalopram (LEXAPRO) 10 mg tablet, Take 1 tablet (10 mg total) by mouth in the morning., Disp: 30tablet, Rfl: 2 magnesium oxide (MAGOX) 400 mg tablet, Take 1 tablet by mouth in the morning and 1 tablet before bedtime, Disp: 30 tablet, Rfl: 2 omeprazole (PriLOSEC) 20 mg capsule, Take 1 capsule (20 mg total) by mouth in the morning and 1 capsule (20 mg total) in the evening. Take before meals., Disp: 60 capsule, Rfl: 11 28 mg iron- 800 mcg tablet, , Disp: , Rfl: PLUS, CALCIUM CARB, 27 mg iron- 1 mg tablet, Take 1 tablet by mouth in the morning. Indications: a patient who is producing milk and ., Disp: , Rfl: SLYND 4 mg (28) tablet, Take 4 mg by mouth in the morning., Disp: , Rfl: Medical Issues: none Consults: none Labs Ordered: none OARRS reviewed: yes AIMS: no Continue Lexapro 10 mg PO daily for anxiety and depression. A thorough safety assessment has been conducted [...] Avoid all drugs and alcohol RTC in 12 weeks or sooner if needed OARRS completed Patient was given the phone numbers of [facility] (Rescue crisis) [phone] and National Suicide Hotline: 988. Medication side [...] . AUGUSTINA INTERIANO MD documented [facility] Progress note* Psychiatric Progress Note - Augustina Interiano MD - 08/09/2024 10:00 AM EDT [address] [place] [id number] Patient: Arabella Hernandez Date of : 1990 Encounter Date: 08/09/2024 History of Present Illness (Subjective): The patient is a 34 y.o. female, an established patient patient, and [...] reported that she is doing good with Lexapro 10 mg PO daily. Is taking Lexapro 10 mg daily for last 1 month. Is not seeing therapist currently as she is doing good. Is of her 10 months old daughter. She also took Lexapro during her last . Has 3 children (8 y/o daughter, 24 months old son and and 810 months old daughter). Is breast feeding. was finalized with (father of 8 y/o daughter and 21 months old son). Has share custody with ex . Is living with boyfriend (father of 7 months old daughter). Works as neededat [employer]. As per previous note Chart and labs were reviewed. Last time patient was seen for initial psychiatric evaluation on 03/15/2023. Patient reported that she is here to get refill of Lexapro 20 mg PO daily. She is getting refill from her GUN EXAMINER who recommended to see psychiatrist and get refill. Has been taking Lexapro since 04/2023. She also took Lexapro during her last . Stopped taking Zoloft on 04/2023 as she did not like. Pt reported that she is doing good with current medication . As per previous note Chart and labs were reviewed. As per note of Montrell Timmons APRN-RODRICK, PCP on02/08/23 Patient following up for depression anxiety today as this has gotten much worse with panicattacks but she recently found out she was about 5 weeks . She is not willing to start any medications for anxiety while she is until she talks to her OBGYN. She is also 6 months and she is a . She recently moved to [place] and is wanting a primary care referral. She is going through a divorce and her current is with her new relationship . Has 7 months old boy and is not for last 1 month. Has 6 yr old daughter with ex boyfriend. Going through divorce with 7 months old son's and is since 05/2022. She was for more than 1 yr. Relocated to [place] on 08/2022 from [place] for boyfriend of 10 months. Currently patient is with boyfriend. They want to continue . THA is 10/05/23. Has depression andanxiety since 2015. Since then she has been seen by several therapists and a psychiatrist. Last appo intment with psychiatrist was 2 and 1/2 yrs ago. Last appointment with therapist 1 and 1/2 yrs ago.Pt was on Lexapro (few weeks and stopped taking it because 6 yrs ago), Wellbutrin (causedirritability), Ativan (helpful) and Cymbalta (caused foggy vision and took for 6 months). Off medication for last 1 and 1/2 yrs. Has restarted medication since 03/2023 which is prescribed by her GUN EXAMINER. Patient was seen by Maine Meneses LPN on 03/09/23 for initial visit. Has monthly appointment with GUN EXAMINER. Has thought of it would be better not be here off and on for last few months as she is going through financial crisis. Last thought was few weeks ago. Denied any suicidal ideations. Denied any access of guns or weapons. Pt is currently on Lexapro 10 mg PO daily. Compliant with medication with no side effects. Sleep isgood. Depression is 3/10 and anxiety is 4/10 (10 being the [...] will harm her baby too. Patient's boyfriend (baby's father) is supportive. Discussed regarding infanticide.Pt was advised to call 911 or go to nearby ER or share with her BF if she feels baby is not safe orif she wants to harm or hurt her baby. Pt endorsed to understand the discussion. Weigh the risk and benefit of Lexapro on . Lexapro will be continued. Patient was informed Lexapro may be present in milk according to some studies. If child becomes irritable or sedated, breast feed or drug may need to be discontinued. 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 Patient endorsed to understand the discussion. LMP: not have period yet after delivery of baby 10 months ago. Is on OCP. Medications: denied Continue Lexapro 10 mg PO daily for anxiety and depression. 1. Anxiety disorder, unspecified type 2. Recurrent major depressive disorder, in partial remission AIMS none present PHQ 9 = Other Scales used: HAM-A Geriatric Depression Scale: Adult ADD Checklist: [place] Suicide Severity Rating Scale (C-SSRS): low risk Recommendations for Additional Therapies: individual therapy Follow up: 3 months Psychotherapy: Provided Supportive therapy during the session [...] past medical history, past social history, past surgicalhistory and problem list. Past Medical History: Diagnosis Date Anxiety Carpal tunnel syndrome Depression Enlarged ovary GERD (gastroesophageal reflux disease) Liver disease Low back pain Obesity Sleep apnea cpap Visual impairment Past Surgical History: Procedure Laterality Date CARPAL TUNNEL RELEASE Right SECTION 09/24/2023 [facility] REPAIR HERNIA UMBILICAL WITH MESH N/A 02/26/2024 Performed by Mari Arora MD at [facility] DAVINCI REPAIR HERNIA VENTRAL WITH MESH N/A 02/26/2024 Performed by Mari Arora MD at [facility] ESOPHAGOGASTRODUODENOSCOPY BIOPSY N/A 06/24/2024 Performed by Phong Mcfarlane MD at [facility] ENDOSCOPY ESOPHAGOGASTRODUODENOSCOPY POLYPECTOMY 06/24/2024 Performed by Phong Mcfarlane MD at [facility] ENDOSCOPY EXPLORATORY LAPAROTOMY INJECTION MEDIAL BRANCH NERVE BLOCK Bilateral L 4/5, 5/1 Bilateral 10/31/2019 Performed by Mina Silva MD at [facility] INJECTION MEDIAL BRANCH NERVE BLOCK Bilateral L 4/5,5/1 Bilateral 09/19/2019 Performed by Mina Silva MD at [facility] INJECTION SACROILIAC NERVE Bilateral 05/02/2019 Performed by Mina Silva MD at [facility] WISDOM TOOTH EXTRACTION 09/2011 Current Outpatient Medications Medication Sig Dispense Refill acidophilus-pectin, citrus 100 million cell-10 mg capsule Take 1 capsule by mouth in the morning. cholecalciferol (VITAMIN D3) 50,000 units capsule Take 1 capsule (50,000 Units total) by mouth oncea week. Once this script is done get an over the counter Vit D3 2,000 unit taking one daily. 7 capsule 0 cranberry fruit (CRANBERRY) 450 mg tablet Take 1 tablet by mouth in the morning. escitalopram (LEXAPRO) 10 mg tablet Take 1 tablet (10 mg total) by mouth in the morning. 30 tablet 2 magnesium oxide (MAGOX) 400 mg tablet Take 1 tablet by mouth in the morning and 1 tablet before bedtime 30 tablet 2 omeprazole (PriLOSEC) 20 mg capsule Take 1 capsule (20 mg total) by mouth in the morning and 1 capsule (20 mg total) in the evening. Take before meals. 60 capsule 11 28 mg iron- 800 mcg tablet PLUS, CALCIUM CARB, 27 mg iron- 1 mg tablet Take 1 tablet by mouth in the morning. Indications: a patient who is producing milk and . SLYND 4 mg (28) tablet Take 4 mg by mouth in the morning. No current facility-administered medications for this visit. [...] History Substance and Sexual Activity Alcohol Use Not Currently Alcohol/week: 1.0 standard drink of alcohol Types: [...] pain Review of Systems: Review of Systems All other systems reviewed and are negative. Physical Exam: There were no vitals taken for this visit. Mental Status Evaluation: Appearance: age appropriate, casually dressed, and overweight Behavior: normal Speech: normal pitch and normal volume Mood: good Affect: normal Thought Process: normal Thought Content: normal Sensorium: person, place, time/date, situation, day of week, and month of year Cognition: grossly intact Insight: fair Judgment: fair Assessment and Plan: Diagnoses and all orders for this visit: Anxiety disorder, unspecified type - escitalopram (LEXAPRO) 10 mg tablet; Take 1 tablet (10 mg total) by mouth in the morning. Recurrent major depressive disorder, in partial remission - escitalopram (LEXAPRO) 10 mg tablet; Take 1 tablet (10 mg total) by mouth in the morning. Current Outpatient Medications: acidophilus-pectin, citrus 100 million cell-10 mg capsule, Take 1 capsule by mouth in the morning.,Disp: , Rfl: cholecalciferol (VITAMIN D3) 50,000 units capsule, Take 1 capsule (50,000 Units total) by mouth once a week. Once this script is done get an over the counter Vit D3 2,000 unit taking one daily., Disp: 7 capsule, Rfl: 0 cranberry fruit (CRANBERRY) 450 mg tablet, Take 1 tablet by mouth in the morning., Disp: , Rfl: escitalopram (LEXAPRO) 10 mg tablet, Take 1 tablet (10 mg total) by mouth in the morning., Disp: 30tablet, Rfl: 2 magnesium oxide (MAGOX) 400 mg tablet, Take 1 tablet by mouth in the morning and 1 tablet before bedtime, Disp: 30 tablet, Rfl: 2 omeprazole (PriLOSEC) 20 mg capsule, Take 1 capsule (20 mg total) by mouth in the morning and 1 capsule (20 mg total) in the evening. Take before meals., Disp: 60 capsule, Rfl: 11 28 mg iron- 800 mcg tablet, , Disp: , Rfl: PLUS, CALCIUM CARB, 27 mg iron- 1 mg tablet, Take 1 tablet by mouth in the morning. Indications: a patient who is producing milk and ., Disp: , Rfl: SLYND 4 mg (28) tablet, Take 4 mg by mouth in the morning., Disp: , Rfl: Medical Issues: none Consults: none Labs Ordered: none OARRS reviewed: yes AIMS: no Continue Lexapro 10 mg PO daily for anxiety and depression. A thorough safety assessment has been conducted [...] Avoid all drugs and alcohol RTC in 12 weeks or sooner if needed OARRS completed Patient was given the phone numbers of [facility] (Rescue crisis) [phone] and National Suicide Hotline: 988. Medication side [...] planning to become . AUGUSTINA INTERIANO MD [place] [id number] History of Present illness Narrative* Mara Arnold MD - 07/14/2024 3:00 PM EDT [facility] [address] [facility] [id number] Name: Arabella Hernandez : 1990 Chief Complaint Patient presents with Right Hand - Post-op R CTR 06/02/24. 6w post op f/u. States still having carpal tunnel pain radiating up to elbow, Rt Handstill sore and stiff, has been massaging Rt Hand. States hand got infected after stitches were removed, took ATB for it SUBJECTIVE: Arabella is here today for evaluation of her right hand. She had a right carpal tunnel release on 06/02/2024 that early postoperatively was complicated with superficial wound infection treated with antibiotics and early resolution of her drainage. She states that she continues to have some incisional h ypersensitivity as well as intermittent episodes of mild tingling to the thumb index and long finger. She states that she has improved since her preoperative state as she used to have frequent nighttime median nerve dysesthesia and states that these have mostly resolved. She also complains of some discomfort in the medial elbow with occasional radiating pain up the right forearm with occasional episodes of tingling towards the small and ring finger. OBJECTIVE: Ht 154.9 cm (5' 1 ) Wt 97.1 kg (214 lb) BMI 40.43 kg/m The patient is a well-developed, well-nourished 34 y.o.female, in no acute distress. Examination ofthe right hand shows no erythema ecchymosis or effusion. Surgical incision appears well healed without signs of infection. She continues to have some incisional hypersensitivity with deep palpation. No open wounds or drainage appreciated. Sensation light touch is fully intact throughout the median nerve distribution. She has positive Tinel's and elbow flexion compression testing of the right cubital tunnel. No ulnar nerve subluxation appreciated at the elbow. She can make a full composite fist.She has full strength with thenar adduction. IMAGING REVIEWED: X-ray hand right minimum 3 views Three [...] advanced osteoarthritis. Impression: Atraumatic left hand films. ASSESSMENT: 1. Carpal tunnel syndrome of right wrist - Ambulatory referral to Occupational Therapy; Future 2. Postoperative visit 3. Cubital tunnel syndrome on right - Ambulatory referral to Occupational Therapy; Future PLAN: She continues to make progress following her procedure. She is showing some signs of cubital tunnelsyndrome of the right elbow for which we are going to have her begin occupational therapy to work on nerve glides. She will also work on scar tissue massage and desensitization. We will see the patient back in 2 months in order to reassess and she agrees with this plan. I, Mara Arnold MD, personally performed the face to face evaluation on this patient. I discussedwith the patient and confirmed the accuracy and completeness of the aforementioned history preparedby the advance practice provider, and I personally performed the clinical examination of the patient. I discussed the treatment plan with the patient. Arabella reports some residual numbness symptoms in fingers. However, she does feel that she is improved following carpal tunnel release. She is noting paresthesias into the ring and small finger as well as medial elbow pain. Clinical history and physical exam are this point consistent with some degree of cubital tunnel syndrome. We did discuss pathology associated with this. We did discuss spectrumof treatment options to include nighttime elbow extension splinting as well as potential nerve glides versus diagnostic cubital tunnel corticosteroid injection and the potential for surgical decompression if conservative management fails. For now, she would like to implement nighttime elbow extension splinting with modification of daytime activities to try and keep her elbow in extension more often during work. She would also like to implement occupational therapy guided nerve glides. Therapy prescription is provided today. She will return to clinic in 2-3 months. documented in this encounterK[facility]tering [facility] CenterAito BV [id number] Miscellaneous Notes* Telephone Encounter - Lisa Donald - 07/07/2024 12:34 PM EDT ----- Message from Jessy Ortiz MD sent at 07/07/2024 9:45 AM EDT ----- Asiz-ahz-whskmtn replacement and maintenance therapy * Telephone Encounter - Lisa Donald - 07/07/2024 12:34 PM EDT Called pt and LVM of how to take Vit D. Please sign script to go to pharm. [facility] Telephone encounter Note* Telephone Encounter - Lisa Donald - 07/07/2024 12:34 PM EDT ----- Message from Jessy Ortiz MD sent at 07/07/2024 9:45 AM EDT ----- Lcgq-mes-ajauzto replacement and maintenance therapy [facility]04-07-[facility] Telephone encounter Note* Telephone Encounter - Lisa Donald - 07/07/2024 12:34 PM EDT Called pt and LVM of how to take Vit D. Please sign script to go to pharm. [facility] History of Present illness Narrative* Jessy Ortiz MD - 06/19/2024 3:30 PM EDT Neurology Progress 06/19/2024 Montrell Timmons APRN-SCREEN PRINTING EQUIPMENT SETTER Ref Provider (PCP Reason for Visit: Chief Complaint Patient presents with New Patient Headache Dizziness HPI: Arabella Hernandez is a 33 y.o. 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 Recently on part-time schedule secondary to her children. Reports almost daily headaches rarely days without headache. Started 7-8 months ago, infrequent headaches before. Gradual onset with progressive worsening. Not accompanied with loss of consciousness but does experience occasional photophobia and sonophobia. No clear precipitating or relieving factors naps may or may not help. Tylenol helps. Sleep is not prevented. Recent eye examination just started to use spectacles. Reports a combination of positionally associated lightheadedness as well as ataxia. No falls reported. No history of hearing loss. Recent MRI scan was unremarkable. Previous history of smoking and alcohol usage. Family history unremarkable for neurological disorders. Review of systems suggests history of palpitation for which she is using a 2 week event monitor. Being with Lexapro. Nonspecific cranial injuries. Review of Systems: General: Unremarkable Psychological: Unremarkable Ophthalmic: Unremarkable ENT: Unremarkable Allergy and Immunolog : Unremarkable Hematological and Lymphatic : Unremarkable Endocrine : Unremarkable Respiratory : Unremarkable Cardiovascular : Unremarkable Gastrointestinal : Unremarkable Genito-Urinary : Unremarkable Musculoskeletal : Unremarkable Neurological : Unremarkable Dermatological : Unremarkable Past Medical History: Past Medical History: Diagnosis Date Anxiety Carpal tunnel syndrome Depression Enlarged ovary GERD (gastroesophageal reflux disease) Low back pain Obesity Sleep apnea cpap Visual impairment Social History: Social History Socioeconomic History Marital status: Tobacco Use Smoking status: Former Current packs/day: [...] Sexual activity: Yes Partners: Male control/protection: OCP Social Drivers of Health Financial Resource Strain: Low Risk (03/14/2024) Overall Financial Resource Strain (CARDIA) Difficulty of Paying Living Expenses: Not hard at all Food Insecurity: No Food Insecurity (06/16/2024) Hunger Screening Food Insecurity - Worry: Never True Food Insecurity - Inability: Never True Transportation Needs: No Transportation Needs (03/14/2024) PRAPARE - Transportation Lack of Transportation (Medical): No Lack of Transportation (Non-Medical): No Housing Instability: Low Risk (03/14/2024) Housing Instability Housing Instability: No Family History: Family History Problem Relation Age of Onset Hypertension Mother Alcohol abuse Mother COPD Mother Depression Mother Mental illness Mother Breast cancer Paternal Aunt Lupus Paternal Aunt Breast cancer Maternal Grandmother Diabetes Maternal Grandfather Depression Maternal Grandfather Mental illness Maternal Grandfather Heart disease Paternal Grandfather Glaucoma Neg Hx Macular degeneration Neg Hx Colon cancer Neg Hx Modifying Factors: Allergies: No Known Allergies Current Medications: Current Outpatient Medications Medication Sig Dispense Refill acidophilus-pectin, citrus 100 million cell-10 mg capsule Take 1 capsule by mouth in the morning. CEPHalexin (KEFLEX) 500 mg capsule Take 1 capsule (500 mg total) by mouth in the morning and 1 capsule (500 mg total) at noon and 1 capsule (500 mg total) in the evening and 1 capsule (500 mg total) before bedtime. Do all this for 7 days. 28 capsule 0 cranberry fruit (CRANBERRY) 450 mg tablet Take 1 tablet by mouth in the morning. escitalopram (LEXAPRO) 10 mg tablet Take 1 tablet (10 mg total) by mouth in the morning. 30 tablet 0 escitalopram (LEXAPRO) 20 mg tablet Take 1 tablet (20 mg total) by mouth in the morning. 30 tablet 0 magnesium oxide (MAGOX) 400 mg tablet Take 1 tablet by mouth in the morning and 1 tablet before bedtime 30 tablet 2 omeprazole (PriLOSEC) 20 mg capsule Take 1 capsule (20 mg) by mouth at bedtime Do not crush or chew. 28 mg iron- 800 mcg tablet PLUS, CALCIUM CARB, 27 mg iron- 1 mg tablet Take 1 tablet by mouth in the morning. Indications: a patient who is producing milk and . SLYND 4 mg (28) tablet Take 4 mg by mouth in the morning. escitalopram (LEXAPRO) 20 mg tablet Take 1.5 tablets (30 mg total) by mouth in the morning for 30 days. (Patient not taking: Reported on 06/19/2024) 45 tablet 1 No current facility-administered medications for this visit. Physical Examination: Vitals: 06/19/24 1536 BP: 124/82 Pulse: 92 Weight: 97.1 kg (214 lb) Height: 154.9 cm (5' 0.98 ) General Examination: Pleasant young lady accompanied with her infant and toddler. GENERAL APPEARANCE: Grooming, alert, well developed, well nourished, in no acute distress, appropriate for age. CRANIUM: Normocephalic, atraumatic. Nontender scalp and skull. ENT: Oral mucosa moist, no pharyngeal erythema or exudate, normal tympanic membrane. EYES: Conjunctiva normal, normal funduscopic exam. Optic discs sharp extraocular movements full NECK: Neck is supple, trachea midline, no tenderness, no jugular venous distention. CHEST: Symmetrical chest wall expansion. CARDIO: Regular rate and rhythm, heart sounds normal. PERIPHERAL VASCULAR: Normal CAROTID VASCULAR: Normal BACK: Nontender, full range of motion, normal alignment. MUSCULOSKELETAL: Full range of motion, normal strength, no tenderness or swelling. SKIN: Clear EXTREMITIES: Full range Neurological Examination: CORTICAL FUNCTIONS: Speech, language, and cognition are normal as well as level of alertness and attention. No aphasia or dysarthria. CRANIAL NERVES: II - XII intact bilaterally.PERRLA, EOMI without nystagmus discs are flat. Facial sensation and strength are normal, soft palate and tongue are midline, and sternocleidomastoid strength is normal bilaterally. Hearing is normal bilaterally. MOTOR STRENGTH: Normal bulk, tone, and strength. SENSORY: Intact for light touch and joint and vibration sense. REFLEXES: Normal and symmetrical. PLANTARS: Toes are downgoing to Babinski testing. COORDINATION: Normal to [id number]. GAIT AND STATION: Romberg is negative eyes closed than open, gait and tandem gait normal. Mini Mental Score: Imaging Results: IMPRESSION: No acute intracranial abnormality by MRI. Approved by Resident Benja Cruz MD on 04/14/2024 7:49 AM Bony Lopez have personally reviewed the image(s) and agree with and/or edited the report Finalized by Bony Monte on 04/14/2024 9:03 AM Labs: Procedures: Assessment: 1. Dizziness - [facility], [place] - Vitamin D 25 hydroxy; Future - Vitamin B12; Future - Folate; Future - Thyroid profile includes TSH FT4; Future 2. Chronic migraine without aura without status migrainosus, not intractable - [facility], [place] - Vitamin D 25 hydroxy; Future - Vitamin B12; Future - Folate; Future - Thyroid profile includes TSH FT4; Future 3. Ataxia - Vitamin D 25 hydroxy; Future - Vitamin B12; Future - Folate; Future - Thyroid profile includes TSH FT4; Future 4. Tension headache - Vitamin D 25 hydroxy; Future - Vitamin B12; Future - Folate; Future - Thyroid profile includes TSH FT4; Future 5. Vitamin D deficiency - Vitamin D 25 hydroxy; Future - Vitamin B12; Future - Folate; Future - Thyroid profile includes TSH FT4; Future 6. Hypothyroidism, unspecified type - Vitamin D 25 hydroxy; Future - Vitamin B12; Future - Folate; Future - Thyroid profile includes TSH FT4; Future Medical Decision Making: Not a good candidate for nortriptyline at this time while undergoing cardiovascular workup for dysrhythmia. 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 As she is nursing, deferred starting her on a muscle relaxer. Her balance and gait and tandem gait are normal, defer physical therapy, no falls already reported. Workup for recognizable in treatable common causes will be instituted. Multiple issues discussed reviewed and explained. Counseling: Plan: Follow Up: two months Patient Instructions: JESSY ORTIZ MD Neurologist This note was created with the assistance of a speech-recognition program. Although the intention is to generate a document that actually reflects the content of the visit, no guarantees can be provided that every mistake has been identified and corrected by editing. documented in this [facility] History of Present illness Narrative* Mara Arnold MD - 06/16/2024 3:50 PM EDT Images from the original note were not included. [facility] Arabella Hernandez is now 2 weeks status post right carpal tunnel release. She called the office on 06/13/2024 concerned for infection along her incision. Patient began Keflex and states the area is much better. She did notice some pus along the proximal and distal portion of the incision. Arabella reports significant improvement in symptoms including resolution of night time pain and improvement in subjective sensation in the fingertips. On examination, palmar skin incision appears to be healing. No erythema present. Glistening serous fluid at the superficial dehiscence of the incision. Patient reports present sensation to light touch in all fingertips. Patient is able to make full active composite fist. Demonstrates active thenar abduction and opposition. Assessment: 2 weeks status post right carpal tunnel release with clinical improvement. Currently onantibiotics for superficial infection. 1. Carpal tunnel syndrome of right wrist Plan: Today in clinic, stitches are removed. Patient is educated on scar massage and scar desensitization. We did discuss concept of pillar pain and expected spontaneous resolution. We will have her finish her course of antibiotics and begin Epson salt soaks at home as well as keeping the area clean and dry. Patient is encouraged to follow up in 4 weeks at 6 week postoperative visit. documented in this [facility]03-17-2025 Instructions* Patient Instructions* Mara Arnold MD - 06/16/2024 3:50 PM EDT Images from the original note were not included. documented in this [facility]Ch[facility]03-[facility]25 Miscellaneous Notes* Telephone Encounter - Sonja Diaz - 06/16/2024 1:37 PM EDT EGD/KB 06/24/24 @09:00 ASA2, MAC, TRACE Instructions handed to patient.///jlr documented in this encounterChill[facility]03-17-2025 Telephone encounter Note* Telephone Encounter - Sonja Diaz - 06/16/2024 1:37 PM EDT EGD/KB 06/24/24 @09:00 ASA2, MAC, TRACE Instructions handed to patient.///jlr [facility] History of Present illness Narrative* Phong Mcfarlane MD - 06/16/2024 1:00 PM EDT Images from the original note were not included. Subjective: Patient ID: Arabella Hernandez is a 33 y.o. female. HPI This is a pleasant 33-year-old female who is seen today for an opinion regarding abnormal liver enzymes. These abnormalities have developed over the past year to, previously being normal. The aminotransferase abnormalities have been minimal with most recent labs showing a normal AST, and ALT of 32. FibroScan showed a KPA of 8 (F2), cap score 300 (S3). Substantial weight gain during pregnancies over the past several years Review of systems was notable for intermittent right upper quadrant abdominal pain were seems to worsen with eating. She also has a history of chronic heartburn which started at least several years ago, during her . Since then she has taken omeprazole 20 mg daily which provides good control of the pyrosis and regurgitation. She denied dysphagia. Social history and risk factors notable for positive tattoos. Family history is negative for diabetes or liver disease. . The following portions of the patient's history were reviewed and updated as appropriate: She has a past medical history of Anxiety, Carpal tunnel syndrome, Depression, Enlarged ovary, GERD(gastroesophageal reflux disease), Low back pain, Obesity, Sleep apnea, and Visual impairment. She has a past surgical history that includes [place] tooth extraction (09/2011); Injection Nerve Block (Bilateral, 05/02/2019); Injection Nerve Block (Bilateral, 09/19/2019); Injection Nerve Block (Bilateral, 10/31/2019); Exploratory laparotomy; section (09/24/2023); Ventral hernia repair ( N/A, 02/26/2024); and Umbilical hernia repair (N/A, 02/26/2024). Her family history includes Alcohol abuse in her mother; Breast cancer in her maternal grandmother and paternal aunt; COPD in her mother; Depression in her maternal grandfather and mother; Diabetes in her maternal grandfather; Heart disease in her paternal grandfather; Hypertension in her mother; Lupus in her paternal aunt; Mental illness in her maternal grandfather and mother. She reports that she has quit smoking. Her smoking use included cigarettes and vaping/e-cigarettes . She has a 5 pack-year smoking history. She has never used smokeless tobacco. She reports current alcohol use of about 1.0 standard drink of alcohol per week. She reports that she does not use drugs. Current Outpatient Medications Medication Sig Dispense Refill acidophilus-pectin, citrus 100 million cell-10 mg capsule Take 1 capsule by mouth in the morning. CEPHalexin (KEFLEX) 500 mg capsule Take 1 capsule (500 mg total) by mouth in the morning and 1 capsule (500 mg total) at noon and 1 capsule (500 mg total) in the evening and 1 capsule (500 mg total) before bedtime. Do all this for 7 days. 28 capsule 0 cranberry fruit (CRANBERRY) 450 mg tablet Take 1 tablet by mouth in the morning. escitalopram (LEXAPRO) 20 mg tablet Take 1.5 tablets (30 mg total) by mouth in the morning for 30 days. 45 tablet 1 magnesium oxide (MAGOX) 400 mg tablet Take 1 tablet by mouth in the morning and 1 tablet before bedtime 30 tablet 2 metFORMIN XR (GLUCOPHAGE XR) 500 mg 24 hr tablet Take 1 tablet by mouth in the evening. Take with meals Do not crush, chew, or split. mupirocin (BACTROBAN) 2 % ointment Apply 1 Application topically 3 (three) times a day. (Patient not taking: Reported on 05/30/2024) 15 g 1 omeprazole (PriLOSEC OTC) 20 mg EC tablet Take 1 tablet (20 mg total) by mouth nightly Indications:gastroesophageal reflux disease. oxyCODONE-acetaminophen (PERCOCET) 5-325 mg per tablet Take 1 tablet by mouth every 6 (six) hours as needed for pain. Max Daily Amount: 4 tablets 10 tablet 0 PLUS, CALCIUM CARB, 27 mg iron- 1 mg tablet Take 1 tablet by mouth in the morning. Indications: a patient who is producing milk and . SLYND 4 mg (28) tablet Take 4 mg by mouth in the morning. No current facility-administered medications for this visit. She has No Known Allergies. Review of Systems Objective: Physical Exam Constitutional: General: She is not in acute distress. Appearance: She is well-developed. HENT: Head: Normocephalic and atraumatic. Mouth/Throat: Pharynx: No oropharyngeal exudate. Eyes: General: No scleral icterus. Conjunctiva/sclera: Conjunctivae normal. Pupils: Pupils are equal, round, and reactive to light. Neck: Thyroid: No thyromegaly. Vascular: No JVD. Trachea: No tracheal deviation. Cardiovascular: Rate and Rhythm: Normal rate and regular rhythm. Heart sounds: Normal heart sounds. No murmur heard. No gallop. Pulmonary: Effort: Pulmonary effort is normal. No respiratory distress. Breath sounds: Normal breath sounds. No wheezing or rales. Abdominal: General: Bowel sounds are normal. There is no distension. Palpations: Abdomen is soft. There is no shifting dullness or mass. Tenderness: There is no abdominal tenderness. There is no guarding or rebound. Musculoskeletal: Cervical back: Normal range of motion and neck supple. Lymphadenopathy: Cervical: No cervical adenopathy. Skin: General: Skin is warm and dry. Coloration: Skin is not pale. Findings: No rash. Neurological: Mental Status: She is alert and oriented to person, place, and time. Cranial Nerves: No cranial nerve deficit. Deep Tendon Reflexes: Reflexes normal. Psychiatric: Behavior: Behavior normal. Judgment: Judgment normal. Labs: Albumin 3.2 - 5.3 g/dL 4.1 4.1 3.2 4.3 Alkaline Phosphatase 39 - 130 U/L 108 129 90 87 AST 0 - 41 U/L 30 40 15 29 ALT 0 - 31 U/L 32 High 47 High 14 31 Total bilirubin 0.3 - 1.2 mg/dL 0.3 0.2 Low 0.2 Low 0.5 CBC: Lab Results Component Value Date WBC 7.6 12/13/2023 HGB 11.9 12/13/2023 HCT 37.3 12/13/2023 MCV 77 (L) 12/13/2023 RDW 15.5 (H) 12/13/2023 PLT 275 12/13/2023 CMP: Lab Results Component Value Date K 4.2 05/09/2024 CL 105 05/09/2024 CO2 25 05/09/2024 BUN 9 05/09/2024 GLU 98 05/09/2024 GLU 92 06/07/2023 US ABDOMEN LMTD HISTORY: Abnormal LFTs, cirrhotic morphology on recent CT. COMPARISON: CT abdomen pelvis 02/06/2024 TECHNIQUE: Multiple real-time grayscale images were obtained in transverse and sagittal projectionsliver. Color Doppler was used. FINDINGS: Diffusely increased hepatic echogenicity compatible with hepatocellular disease. Although nonspecific, this is most likely secondary to steatosis. Within these limits, no focal hepatic lesion demonstrated. The hepatic contours appear smooth. Liver is 15.0 cm in length. No intrahepatic biliary dilatation. The common duct is not dilated and measures 0.2 cm. Main portal vein is patent with appropriate direction of flow. Main portal vein velocity 27.9 cm/s. Visualized portions of gallbladder show no shadowing stones. IMPRESSION: Although nonspecific, diffusely increased hepatic echogenicity is most likely secondary to hepatic steatosis. X Assessment/Plan: Arabella was seen today for weight gain. Diagnoses and all orders for this visit: RUQ pain - EGD; Future Metabolic dysfunction-associated steatotic liver disease (MASLD) - [facility] [place] [place] - Smooth Muscle AB; Future - Protein electrophoresis, serum; Future - Hepatitis C(HCV) Ab w/ Reflex to PCR; Future - Hepatitis B surface antigen; Future - Ceruloplasmin; Future Abnormal liver enzymes Liver enzyme abnormalities are likely the result of metabolic dysfunction associated steatotic liver disease. Given her history of tattoos, she will be screen for chronic viral hepatitis. Additional labs will be ordered to look for autoimmune disease or Tru's. I will plan to see her back in 6 months for follow-up, or sooner if any of the labs show significant abnormalities. We discussed management options for fatty liver disease. She has changed her diet and is making progress with weight loss. I suspect that the FibroScan readings may be inaccurate as this was not a fasting study. It would be unusual for her to have F2 fibrosis when her liver enzymes were normal only2 years ago. We will plan to repeat a FibroScan at some point in time, and will consider Fibro test if kPA readings do not improve. I have recommended EGD for evaluation of the upper GI symptoms and right upper quadrant abdominal pain. Further recommendations for treatment of the reflux will follow. ASA 2. EGD at [facility] with MAC. documented in this encounterK[facility] CenterA[facility] [id number] Miscellaneous Notes* Psychiatric Progress Note - Brian Kapadia - 06/15/2024 5:41 PM EDT Per verbal request from provider attached lexapro 10mg and lexapro 20mg * Telephone Encounter - Brian Kapadia - 06/15/2024 5:41 PM EDT Refill at pharmacy * Telephone Encounter - Ann Helm MD - 06/15/2024 5:41 PM EDT Tried to return patient's call on behalf of Dr. Interiano. Left a message that I could discuss possible options if she would return my calls * Addendum Note - Brian Kapadia - 06/15/2024 5:41 PM EDTAddended by: BRIAN KAPADIA on: 06/16/2024 05:12 PM Modules accepted: Orders documented in this [facility]Ch[facility]03-16-2025 Note* Addendum Note - Brian Kapadia - 06/15/2024 5:41 PM EDTAddended by: BRIAN KAPADIA on: 06/16/2024 05:12 PM Modules accepted: Orders [facility]03-16-[facility] Progress note* Psychiatric Progress Note - Brian Kapadia - 06/15/2024 5:41 PM EDT Per verbal request from provider attached lexapro 10mg and lexapro 20mg [facility] Telephone encounter Note* Telephone Encounter - Brian Kapadia - 06/15/2024 5:41 PM EDT [facility] Telephone encounter Note* Telephone Encounter - Ann Helm MD - 06/15/2024 5:41 PM EDT Tried to return patient's call on behalf of Dr. Interiano. Left a message that I could discuss possible options if she would return my calls [employer] Work Phone: [phone] Miscellaneous Notes* Telephone Encounter - Mita Mae RN - 06/13/2024 11:38 AM EDT Received a call from the pt with concerns an incisional infection may be starting on her R hand. Pt is s/p R CTR 06/02/24. Pt states she has been doing well post operatively with minimal to no pain but in the past couple of days she has been experiencing increasing pain and tenderness with the R hand and difficult to make a fist. Incision is becoming red and swollen around the incision and there was some dark pus colored drainage on the bandaid from the top of the incisional area. Dust Mill Operator instructed the pt to take photos of the area to send to a phone number provided for further review from the hand clinic [facility]. Flex viewed the photos and did not feel reason for concern at this time but ordered an antibiotic incase the incision becomes more symptomatic and begins to drain more with increasing redness or pt develops fever, chills. Dust Mill Operator phoned the pt and informed of the above noted and advised not to take the antibiotic unless symptoms worsen. Pt agreeable and v/u. Pt has 1st post op appt 06/16/24. documented in this encounterCh[facility]03-14-2025 Telephone encounter Note* Telephone Encounter - Mita Mae RN - 06/13/2024 11:38 AM EDT Received a call from the pt with concerns an incisional infection may be starting on her R hand. Pt is s/p R CTR 06/02/24. Pt states she has been doing well post operatively with minimal to no pain but in the past couple of days she has been experiencing increasing pain and tenderness with the R hand and difficult to make a fist. Incision is becoming red and swollen around the incision and there was some dark pus colored drainage on the bandaid from the top of the incisional area. Dust Mill Operator instructed the pt to take photos of the area to send to a phone number provided for further review from the hand clinic [facility]. Flex viewed the photos and did not feel reason for concern at this time but ordered an antibiotic incase the incision becomes more symptomatic and begins to drain more with increasing redness or pt develops fever, chills. Dust Mill Operator phoned the pt and informed of the above noted and advised not to take the antibiotic unless symptoms worsen. Pt agreeable and v/u. Pt has 1st post op appt 06/16/24. [employer] Work Phone: [phone] Miscellaneous Notes* Psychiatric Progress Note - Augustina Interiano MD - 06/07/2024 10:00 AM EST [address] [facility] [id number] Patient: Arabella Hernandez Date of : 1990 Encounter Date: 06/07/2024 History of Present Illness (Subjective): The patient [...] she is doing good with current medication. Is not seeing therapist currently as she is doing good. Is breast feeding of her 8 months old daughter. She also took Lexapro during her last . Has 3 children (8 y/o daughter, 21 months old son and and 8 months old daughter). Is breast feeding. was finalized with (father of 8 y/o daughter and 21 months old son). Has share custody with ex . Is living with boyfriend (father of 7 months old daughter). Works as needed at [employer]. As per previous note Chart and labs were reviewed. Last time patient was seen for initial psychiatric evaluation on 03/15/2023. Patient reported that she is here to get refill of Lexapro 20 mg PO daily. She is getting refill from her GUN EXAMINER who recommended to see psychiatrist and get refill. Has been taking Lexapro since 04/2023. She also took Lexapro during her last . Stopped taking Zoloft on 04/2023 as she did not like. Pt reported that she is doing good with current medication . As per previous note Chart and labs were reviewed. As per note of Montrell Timmons APRN-RODRICK, PCP on02/08/23 Patient following up for depression anxiety today as this has gotten much worse with panicattacks but she recently found out she was about 5 weeks . She is not willing to start any medications for anxiety while she is until she talks to her OBGYN. She is also 6 months and she is a . She recently moved to [place] and is wanting a primary care referral. She is going through a divorce and her current is with her new relationship . Has 7 months old boy and is not for last 1 month. Has 6 yr old daughter with ex boyfriend. Going through divorce with 7 months old son's and is since 05/2022. She was for more than 1 yr. Relocated to [place] on 08/2022 from [place] for boyfriend of 10 months. Currently patient is with boyfriend. They want to continue . THA is 10/05/23. Has depression andanxiety since 2016. Since then she has been seen by several therapists and a psychiatrist. Last appo intment with psychiatrist was 2 and 1/2 yrs ago. Last appointment with therapist 1 and 1/2 yrs ago.Pt was on Lexapro (few weeks and stopped taking it because 6 yrs ago), Wellbutrin (causedirritability), Ativan (helpful) and Cymbalta (caused foggy vision and took for 6 months). Off medication for last 1 and 1/2 yrs. Has restarted medication since 03/2023 which is prescribed by her GUN EXAMINER. Patient was seen by Maine Meneses LPN on 03/09/23 for initial visit. Has monthly appointment with GUN EXAMINER. Has thought of it would be better not be here off and on for last few months as she is going through financial crisis. Last thought was few weeks ago. Denied any suicidal ideations. Denied any access of guns or weapons. Pt is currently on Lexapro 30 mg PO daily. Compliant with medication with no side effects. Sleep isgood. Depression is 3/10 and anxiety is 2/10 (10 being the worst). No panic attack. [...] will harm her baby too. Patient's boyfriend (baby's father) is supportive. Discussed regarding infanticide.Pt was advised to call 911 or go to nearby ER or share with her BF if she feels baby is not safe orif she wants to harm or hurt her baby. Pt endorsed to understand the discussion. Weigh the risk and benefit of Lexapro on . Lexapro will be continued. Patient was informed Lexapro may be present in milk according to some studies. If child becomes irritable or sedated, breast feed or drug may need to be discontinued. 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 Patient endorsed to understand the discussion. LMP: not have period yet after delivery of baby 8 months ago. Is on OCP. Medications: denied Continue Lexapro 30 mg PO daily for anxiety and depression. Pt will take 1 and 1/2 tablets for Lexapro 20 mg (30 mg) 1. Anxiety disorder, unspecified type 2. Recurrent major depressive disorder, in partial remission (CMS-HCC) AIMS none present PHQ 9 = Other Scales used: HAM-A Geriatric Depression Scale: Adult ADD Checklist: [place] Suicide Severity Rating Scale (C-SSRS): low risk Recommendations for Additional Therapies: individual therapy Follow up: 2 months Psychotherapy: Provided Supportive therapy during the session [...] past medical history, past social history, past surgicalhistory and problem list. Past Medical History: Diagnosis Date Anxiety Carpal tunnel syndrome Depression Enlarged ovary GERD (gastroesophageal reflux disease) Low back pain Obesity Sleep apnea cpap Visual impairment Past Surgical History: Procedure Laterality Date SECTION 09/24/2023 DAVINCI REPAIR HERNIA UMBILICAL WITH MESH N/A 02/26/2024 Performed by Mari Arora MD at [facility] DAVINCI REPAIR HERNIA VENTRAL WITH MESH N/A 02/26/2024 Performed by Mari Arora MD at [facility] EXPLORATORY LAPAROTOMY INJECTION MEDIAL BRANCH NERVE BLOCK Bilateral L 4/5, 5/1 Bilateral 10/31/2019 Performed by Mina Silva MD at [facility] MEDIAL BRANCH NERVE BLOCK Bilateral L 4/5,5/1 Bilateral 09/19/2019 Performed by Mina Silva MD at [facility] SACROILIAC NERVE Bilateral 05/02/2019 Performed by [facility] W[facility] TO[facility] EXTRACTION 09/2011 Current Outpatient Medications Medication Sig Dispense Refill acidophilus-pectin, citrus 100 million cell-10 mg capsule Take 1 capsule by mouth in the morning. cranberry fruit (CRANBERRY) 450 mg tablet Take 1 tablet by mouth in the morning. escitalopram (LEXAPRO) 20 mg tablet Take 1.5 tablets (30 mg total) by mouth in the morning for 30 days. 45 tablet 1 magnesium oxide (MAGOX) 400 mg tablet Take 1 tablet by mouth in the morning and 1 tablet before bedtime 30 tablet 2 metFORMIN XR (GLUCOPHAGE XR) 500 mg 24 hr tablet Take 1 tablet by mouth in the evening. Take with meals Do not crush, chew, or split. mupirocin (BACTROBAN) 2 % ointment Apply 1 Application topically 3 (three) times a day. (Patient not taking: Reported on 05/30/2024) 15 g 1 omeprazole (PriLOSEC OTC) 20 mg EC tablet Take 1 tablet (20 mg total) by mouth nightly Indications:gastroesophageal reflux disease. oxyCODONE-acetaminophen (PERCOCET) 5-325 mg per tablet Take 1 tablet by mouth every 6 (six) hours as needed for pain. Max Daily Amount: 4 tablets 10 tablet 0 PLUS, CALCIUM CARB, 27 mg iron- 1 mg tablet Take 1 tablet by mouth in the morning. Indications: a patient who is producing milk and . SLYND 4 mg (28) tablet Take 4 mg by mouth in the morning. traMADoL (ULTRAM) 50 mg tablet Take 1 tablet (50 mg total) by mouth every 6 (six) hours as needed for pain for up to 3 days. 10 tablet 0 No current facility-administered medications for this visit. [...] pain Review of Systems: Review of Systems All other systems reviewed [...] Take 1 capsule by mouth in the morning.,Disp: , Rfl: cranberry fruit (CRANBERRY) 450 mg tablet, Take 1 tablet by mouth in the morning., Disp: , Rfl: escitalopram (LEXAPRO) 20 mg tablet, Take 1.5 tablets (30 mg total) by mouth in the morning for 30 days., Disp: 45 tablet, Rfl: 1 magnesium oxide (MAGOX) 400 mg tablet, Take [...] Application topically 3 (three) times a day. (Patient not taking: Reported on 05/30/2024), Disp: 15 g, Rfl: 1 omeprazole (PriLOSEC OTC) 20 mg EC tablet, Take 1 tablet (20 mg total) by mouth nightly Indications: gastroesophageal reflux disease., Disp: , Rfl: oxyCODONE-acetaminophen (PERCOCET) 5-325 mg per tablet, Take 1 tablet by mouth every 6 (six) hours as needed for pain. Max Daily Amount: 4 tablets, Disp: 10 tablet, Rfl: 0 PLUS, CALCIUM CARB, 27 mg iron- 1 mg tablet, Take 1 tablet by mouth in the morning. Indications: a patient who is producing milk and ., Disp: , Rfl: SLYND 4 mg (28) tablet, Take 4 mg by mouth in the morning., Disp: , Rfl: traMADoL (ULTRAM) 50 mg tablet, Take 1 tablet (50 mg total) by mouth every 6 (six) hours as needed for pain for up to 3 days., Disp: 10 tablet, Rfl: 0 Medical Issues: none Consults: none Labs Ordered: none OARRS reviewed: yes AIMS: no Continue Lexapro 30 mg PO daily for anxiety and [...] Avoid all drugs and alcohol RTC in 8 weeks or sooner if needed OARRS completed Patient was given the phone numbers of [facility] (Rescue crisis) [phone] and National Suicide Hotline: 988. Medication side [...] . AUGUSTINA INTERIANO MD documented in this encounterChillic[facility]03-08-2025 Progress note* Psychiatric Progress Note - Augustina Interiano MD - 06/07/2024 10:00 AM EST [address] [place] [address] Patient: Arabella Hernandez Date of : 1990 Encounter Date: 06/07/2024 History of Present Illness (Subjective): The patient [...] she is doing good with current medication. Is not seeing therapist currently as she is doing good. Is breast feeding of her 8 months old daughter. She also took Lexapro during her last . Has 3 children (8 y/o daughter, 21 months old son and and 8 months old daughter). Is breast feeding. was finalized with (father of 8 y/o daughter and 21 months old son). Has share custody with ex . Is living with boyfriend (father of 7 months old daughter). Works as needed at [employer]. As per previous note Chart and labs were reviewed. Last time patient was seen for initial psychiatric evaluation on 03/15/2023. Patient reported that she is here to get refill of Lexapro 20 mg PO daily. She is getting refill from her GUN EXAMINER who recommended to see psychiatrist and get refill. Has been taking Lexapro since 04/2023. She also took Lexapro during her last . Stopped taking Zoloft on 04/2023 as she did not like. Pt reported that she is doing good with current medication . As per previous note Chart and labs were reviewed. As per note of Montrell Timmons APRN-RODRICK, PCP on02/08/23 Patient following up for depression anxiety today as this has gotten much worse with panicattacks but she recently found out she was about 5 weeks . She is not willing to start any medications for anxiety while she is until she talks to her OBGYN. She is also 6 months and she is a . She recently moved to [place] and is wanting a primary care referral. She is going through a divorce and her current is with her new relationship . Has 7 months old boy and is not for last 1 month. Has 6 yr old daughter with ex boyfriend. Going through divorce with 7 months old son's and is since 05/2022. She was for more than 1 yr. Relocated to [place] on 08/2022 from [place] for boyfriend of 10 months. Currently patient is with boyfriend. They want to continue . THA is 10/05/23. Has depression andanxiety since 2015. Since then she has been seen by several therapists and a psychiatrist. Last appo intment with psychiatrist was 2 and 1/2 yrs ago. Last appointment with therapist 1 and 1/2 yrs ago.Pt was on Lexapro (few weeks and stopped taking it because 6 yrs ago), Wellbutrin (causedirritability), Ativan (helpful) and Cymbalta (caused foggy vision and took for 6 months). Off medication for last 1 and 1/2 yrs. Has restarted medication since 03/2023 which is prescribed by her GUN EXAMINER. Patient was seen by Maine Meneses LPN on 03/09/23 for initial visit. Has monthly appointment with GUN EXAMINER. Has thought of it would be better not be here off and on for last few months as she is going through financial crisis. Last thought was few weeks ago. Denied any suicidal ideations. Denied any access of guns or weapons. Pt is currently on Lexapro 30 mg PO daily. Compliant with medication with no side effects. Sleep isgood. Depression is 3/10 and anxiety is 2/10 (10 being the worst). No panic attack. [...] will harm her baby too. Patient's boyfriend (baby's father) is supportive. Discussed regarding infanticide.Pt was advised to call 911 or go to nearby ER or share with her BF if she feels baby is not safe orif she wants to harm or hurt her baby. Pt endorsed to understand the discussion. Weigh the risk and benefit of Lexapro on . Lexapro will be continued. Patient was informed Lexapro may be present in milk according to some studies. If child becomes irritable or sedated, breast feed or drug may need to be discontinued. 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 Patient endorsed to understand the discussion. LMP: not have period yet after delivery of baby 8 months ago. Is on OCP. Medications: denied Continue Lexapro 30 mg PO daily for anxiety and depression. Pt will take 1 and 1/2 tablets for Lexapro 20 mg (30 mg) 1. Anxiety disorder, unspecified type 2. Recurrent major depressive disorder, in partial remission (CMS-HCC) AIMS none present PHQ 9 = Other Scales used: HAM-A Geriatric Depression Scale: Adult ADD Checklist: [place] Suicide Severity Rating Scale (C-SSRS): low risk Recommendations for Additional Therapies: individual therapy Follow up: 2 months Psychotherapy: Provided Supportive therapy during the session [...] past medical history, past social history, past surgicalhistory and problem list. Past Medical History: Diagnosis Date Anxiety Carpal tunnel syndrome Depression Enlarged ovary GERD (gastroesophageal reflux disease) Low back pain Obesity Sleep apnea cpap Visual impairment Past Surgical History: Procedure Laterality Date SECTION 09/24/2023 DAVINCI REPAIR HERNIA UMBILICAL WITH MESH N/A 02/26/2024 Performed by Mari Arora MD at [facility] DAVINCI REPAIR HERNIA VENTRAL WITH MESH N/A 02/26/2024 Performed by Mari Arora MD at [facility] SURGERY EXPLORATORY LAPAROTOMY INJECTION MEDIAL BRANCH NERVE BLOCK Bilateral L 4/5, 5/1 Bilateral 10/31/2019 Performed by Mina Silva MD at [facility] INJECTION MEDIAL BRANCH NERVE BLOCK Bilateral L 4/5,5/1 Bilateral 09/19/2019 Performed by Mina Silva MD at [facility] INJECTION SACROILIAC NERVE Bilateral 05/02/2019 Performed by Mina Silva MD at [facility] WISDOM TOOTH EXTRACTION 09/2011 Current Outpatient Medications Medication Sig Dispense Refill acidophilus-pectin, citrus 100 million cell-10 mg capsule Take 1 capsule by mouth in the morning. cranberry fruit (CRANBERRY) 450 mg tablet Take 1 tablet by mouth in the morning. escitalopram (LEXAPRO) 20 mg tablet Take 1.5 tablets (30 mg total) by mouth in the morning for 30 days. 45 tablet 1 magnesium oxide (MAGOX) 400 mg tablet Take 1 tablet by mouth in the morning and 1 tablet before bedtime 30 tablet 2 metFORMIN XR (GLUCOPHAGE XR) 500 mg 24 hr tablet Take 1 tablet by mouth in the evening. Take with meals Do not crush, chew, or split. mupirocin (BACTROBAN) 2 % ointment Apply 1 Application topically 3 (three) times a day. (Patient not taking: Reported on 05/30/2024) 15 g 1 omeprazole (PriLOSEC OTC) 20 mg EC tablet Take 1 tablet (20 mg total) by mouth nightly Indications:gastroesophageal reflux disease. oxyCODONE-acetaminophen (PERCOCET) 5-325 mg per tablet Take 1 tablet by mouth every 6 (six) hours as needed for pain. Max Daily Amount: 4 tablets 10 tablet 0 PLUS, CALCIUM CARB, 27 mg iron- 1 mg tablet Take 1 tablet by mouth in the morning. Indications: a patient who is producing milk and . SLYND 4 mg (28) tablet Take 4 mg by mouth in the morning. traMADoL (ULTRAM) 50 mg tablet Take 1 tablet (50 mg total) by mouth every 6 (six) hours as needed for pain for up to 3 days. 10 tablet 0 No current facility-administered medications for this visit. [...] pain Review of Systems: Review of Systems All other systems reviewed [...] Recurrent major depressive disorder, in partial remission ([facility]-HCC) - escitalopram (LEXAPRO) 20 mg tablet; Take 1.5 tablets (30 mg total) by mouth in the morning for 30 days. Current Outpatient Medications: acidophilus-pectin, citrus 100 million cell-10 mg capsule, Take 1 capsule by mouth in the morning.,Disp: , Rfl: cranberry fruit (CRANBERRY) 450 mg tablet, Take 1 tablet by mouth in the morning., Disp: , Rfl: escitalopram (LEXAPRO) 20 mg tablet, Take 1.5 tablets (30 mg total) by mouth in the morning for 30 days., Disp: 45 tablet, Rfl: 1 magnesium oxide (MAGOX) 400 mg tablet, Take [...] Application topically 3 (three) times a day. (Patient not taking: Reported on 05/30/2024), Disp: 15 g, Rfl: 1 omeprazole (PriLOSEC OTC) 20 mg EC tablet, Take 1 tablet (20 mg total) by mouth nightly Indications: gastroesophageal reflux disease., Disp: , Rfl: oxyCODONE-acetaminophen (PERCOCET) 5-325 mg per tablet, Take 1 tablet by mouth every 6 (six) hours as needed for pain. Max Daily Amount: 4 tablets, Disp: 10 tablet, Rfl: 0 PLUS, CALCIUM CARB, 27 mg iron- 1 mg tablet, Take 1 tablet by mouth in the morning. Indications: a patient who is producing milk and ., Disp: , Rfl: SLYND 4 mg (28) tablet, Take 4 mg by mouth in the morning., Disp: , Rfl: traMADoL (ULTRAM) 50 mg tablet, Take 1 tablet (50 mg total) by mouth every 6 (six) hours as needed for pain for up to 3 days., Disp: 10 tablet, Rfl: 0 Medical Issues: none Consults: none Labs Ordered: none OARRS reviewed: yes AIMS: no Continue Lexapro 30 mg PO daily for anxiety and [...] Avoid all drugs and alcohol RTC in 8 weeks or sooner if needed OARRS completed Patient was given the phone numbers of [facility] (Rescue crisis) [phone] and National Suicide Hotline: 164. Medication side effects, risks, benefits, and treatment [...] planning to become . AUGUSTINA INTERIANO MD [facility] [id number] History of Present illness Narrative* Mara Arnold MD - 06/05/2024 6:00 PM EST Ongoing postoperative pain. An encounter has been created to document ordering of postoperative pain medication. This patient has been started on opiate pain medications for an acute pain condition. The duration of the pain and its treatment is not expected to last more than 7 days. The patient has been educated on the risks/benefits of Opiate versus non-opiate pain medications and alternative treatments available. 1. Postoperative pain - traMADoL (ULTRAM) 50 mg tablet; Take 1 tablet (50 mg total) by mouth every 6 (six) hours as needed for pain for up to 3 days. Dispense: 10 tablet; Refill: 0 2. Carpal tunnel syndrome of right wrist - traMADoL (ULTRAM) 50 mg tablet; Take 1 tablet (50 mg total) by mouth every 6 (six) hours as needed for pain for up to 3 days. Dispense: 10 tablet; Refill: 0 documented in this encounterProtest[facility] [id number] Miscellaneous Notes* Telephone Encounter - Carmela Lopez - 06/04/2024 3:16 PM EST Received new patient referral. Please call patient to schedule a new patient appointment for Dizziness G43.709 (ICD-10-CM) - Chronic migraine without aura without status migrainosus, not intractable IS THIS DUE TO AN ACCIDENT? IS THIS WORKER'S COMP? PLEASE VERIFY IF THIS IS WORKERS COMP AND DOCUMENT (We do not accept any new workers comp cases) WHAT INSURANCE? HAVE YOU EVER BEEN SEEN BY A NEUROLOGIST BEFORE? * Telephone Encounter - Wilma Carrillo - 06/04/2024 3:16 PM EST 1. IS THIS DUE TO AN ACCIDENT? -No 2. IS THIS WORKER'S COMP? PLEASE VERIFY IF THIS IS WORKERS COMP AND DOCUMENT (We do not accept any new workers comp cases) -No 3. WHAT INSURANCE? -[employer] (Ppo) 4. HAVE YOU EVER BEEN SEEN BY A NEUROLOGIST BEFORE? IF YES, WHO AND WHEN? IS THIS A SECOND OPINION? -No 5. ANY CHANCE OF NOW OR BEFORE YOUR APPOINTMENT? -No 6. OFFERED TIMBO FOR SOONER APPOINTMENT? -Soonest appointment 7. PATIENT IS SCHEDULED ON/WITH: -06/19/24 Hasan at 10:00 AM 8. WHO CALLED TO SCHEDULE APPOINTMENT? -Dust Mill Operator called patient documented in this encounterVerm[facility] HospitalOva[facility]-05-[facility]25 Telephone encounter Note* Telephone Encounter - Carmela Lopez - 06/04/2024 3:16 PM EST Received new patient referral. Please call patient to schedule a new patient appointment for Dizziness G43.709 (ICD-10-CM) - Chronic migraine without aura without status migrainosus, not intractable IS THIS DUE TO AN ACCIDENT? IS THIS WORKER'S COMP? PLEASE VERIFY IF THIS IS WORKERS COMP AND DOCUMENT (We do not accept any new workers comp cases) WHAT INSURANCE? HAVE YOU EVER BEEN SEEN BY A NEUROLOGIST BEFORE? [facility] Campustzonebd.[id number] Telephone encounter Note* Telephone Encounter - Wilma Carrillo - 06/04/2024 3:16 PM EST 1. IS THIS DUE TO AN ACCIDENT? -No 2. IS THIS WORKER'S COMP? PLEASE VERIFY IF THIS IS WORKERS COMP AND DOCUMENT (We do not accept any new workers comp cases) -No 3. WHAT INSURANCE? -[employer] (Ppo) 4. HAVE YOU EVER BEEN SEEN BY A NEUROLOGIST BEFORE? IF YES, WHO AND WHEN? IS THIS A SECOND OPINION? -No 5. ANY CHANCE OF NOW OR BEFORE YOUR APPOINTMENT? -No 6. OFFERED TIMBO FOR SOONER APPOINTMENT? -Soonest appointment 7. PATIENT IS SCHEDULED ON/WITH: -06/19/24 Diana at 10:00 AM 8. WHO CALLED TO SCHEDULE APPOINTMENT? -Dust Mill Operator called patient [facility]03-05-[facility] Miscellaneous Notes* Telephone Encounter - Mariely Ferguson CMA - 06/04/2024 11:23 AM EST Fibroscan faxed and mailed to Montrell Timmons CNP. documented in this encounterChillicothe Hospital03-05-2025 Telephone encounter Note* Telephone Encounter - Mariely Ferguson CMA - 06/04/2024 11:23 AM EST Fibroscan faxed and mailed to Montrell Timmons CNP. [facility]03-03-[facility] History of Present illness Narrative* Yin Pineda PA-C - 06/02/2024 9:15 AM EST Postop pain meds sent, OARRs checked Yin Pineda PA-C 06/02/24 0916 documented in this encounterChillicothe Hospital02-28-2025 History of Present illness Narrative* Yann Cao, OD - 05/30/2024 2:45 PM EST Arabella Hernandez had concerns including Eye Exam. HPI Eye Exam In both eyes. Characterized as blurry vision. Severity is moderate. Comments EP/VE. Patient states that she has blurry vision for distance, near vision is clear. Patient states that she does not wear glasses. Last edited by Ronda Bonner on 05/30/2024 2:40 PM. ROS Positive for: Eyes Last edited by Ronda Bonner on 05/30/2024 2:40 PM. No current outpatient medications on file. (Ophthalmic Drugs) No current facility-administered medications for this visit. (Ophthalmic Drugs) Current Outpatient Medications (Other) Medication Sig acidophilus-pectin, citrus 100 million cell-10 mg capsule Take 1 capsule by mouth in the morning. cranberry fruit (CRANBERRY) 450 mg tablet Take 1 tablet by mouth in the morning. escitalopram (LEXAPRO) 20 mg tablet Take 1.5 tablets (30 mg total) by mouth in the morning for 30 days. magnesium oxide (MAGOX) 400 mg tablet Take 1 tablet by mouth in the morning and 1 tablet before bedtime omeprazole (PriLOSEC OTC) 20 mg EC tablet Take 1 tablet (20 mg total) by mouth nightly Indications:gastroesophageal reflux disease. PLUS, CALCIUM CARB, 27 mg iron- 1 mg tablet Take 1 tablet by mouth in the morning. Indications: a patient who is producing milk and . SLYND 4 mg (28) tablet Take 4 mg by mouth in the morning. metFORMIN XR (GLUCOPHAGE XR) 500 mg 24 hr tablet Take 1 tablet by mouth in the evening. Take with meals Do not crush, chew, or split. mupirocin (BACTROBAN) 2 % ointment Apply 1 Application topically 3 (three) times a day. (Patient not taking: Reported on 05/30/2024) No current facility-administered medications for this visit. (Other) Family History Problem Relation Age of Onset Hypertension Mother Alcohol abuse Mother COPD Mother Depression Mother Mental illness Mother Breast cancer Paternal Aunt Lupus Paternal Aunt Breast cancer Maternal Grandmother Diabetes Maternal Grandfather Depression Maternal Grandfather Mental illness Maternal Grandfather Heart disease Paternal Grandfather Glaucoma Neg Hx Macular degeneration Neg Hx Social History Socioeconomic History Marital status: Spouse [...] of Health Financial Resource Strain: Low Risk (03/14/2024) Overall Financial Resource Strain (CARDIA) Difficulty of Paying Living Expenses: Not hard at all Food Insecurity: No Food Insecurity (03/14/2024) Hunger Screening Food Insecurity - Worry: Never True Food Insecurity - Inability: Never True Transportation Needs: No Transportation Needs (03/14/2024) PRAPARE - Transportation Lack of Transportation (Medical): No Lack of Transportation (Non-Medical): No Physical Activity: Not on file Stress: Not on file Social Connections: Not on file Interpersonal Safety: Not on file Housing Instability: Low Risk (03/14/2024) Housing Instability Housing Instability: No Ms. Hernandez has a past medical history of Anxiety, Carpal tunnel syndrome, Depression, Enlarged ovary, GERD (gastroesophageal reflux disease), Low back pain, Obesity, Sleep apnea, and Visual impairment. She has a past surgical history that includes [place] tooth extraction (09/2011); Injection Nerve Block (Bilateral, 05/02/2019); Injection Nerve Block (Bilateral, 09/19/2019); Injection Nerve Block (Bilateral, 10/31/2019); Exploratory laparotomy; section (09/24/2023); Ventral hernia repair (N/A, 02/26/2024); and Umbilical hernia repair (N/A, 02/26/2024). Base Eye Exam Visual Acuity (Snellen - Linear) Right Left Dist sc 20/25 -2 20/30 -2 Near sc J2 OU Tonometry (Tonopen, 2:51 PM) Right Left Pressure 13 13 Pupils Pupils Right PERRL Left PERRL Visual Hood Right Left Full Full Extraocular Movement Right Left Full Full Neuro/Psych Oriented x3: Yes Mood/Affect: Normal Dilation Defer dilation per Dr. Cao due to Slit Lamp and Fundus Exam External Exam Right Left External Normal Normal Slit Lamp Exam Right Left Lids/Lashes Normal Normal Conjunctiva/Sclera White and quiet White and quiet Cornea Clear Clear Anterior Chamber Deep and quiet Deep and quiet Iris Round and reactive Round and reactive Lens Clear Clear Vitreous Normal Normal Fundus Exam Right Left Disc Normal Normal C/D Ratio 0.2/0.2 0.2/0.2 Macula Normal Normal Vessels Normal Normal Undilated views OU Refraction Wearing Rx Does not wear Manifest Refraction (Auto) Sphere Cylinder [place] Right -0.50 -0.50 160 Left -0.25 -0.50 047 Final Rx Sphere Cylinder [place] Dist [place] Right -0.75 -0.50 165 20/25 Left -0.75 -0.50 050 20/25 Expiration Date: 05/30/2026 Comments: Anti-reflective Diagnosis 1. Myopia of both eyes with astigmatism 1. Myopia of both eyes with astigmatism Subjective refraction performed today and Rx for glasses given. Recommend wearing at least while driving and also recommend adding anti-reflective coating to lenses. - [facility] - Optometry - [place], [place] Patient Education: Questions were encouraged to stated satisfaction from the patient. Discussed with patient that failure to follow up as recommended (appointment time, onset of new ocular symptoms) can lead to permanent loss of vision and/or blindness. Patient understands and agrees. IYANN OD personally performed the services described in the documentation, as scribed by ... in my presence, and it is both accurate and complete. 3:28 PM 05/30/24 Return Visit: 1 year VE Physician: YANN CAO OD Yield Loss Inspector: JOSE Hernandez Scribed for and in the presence of YANN CAO OD by JOSE Hernandez documented in this encounterChillicothe Hospital02-28-2025 History of Present illness Narrative* Willa Flores CMA - 05/30/2024 1:00 PM EST Patient here for Fibroscan. Tolerated well. Results placed on providers desk. * Christos Fritz MD - 05/30/2024 1:00 PM EST . documented in this encounterChillicothe Hospital02-11-2025 History of Present illness Narrative* Terrie Quick LPN - 05/13/2024 8:30 AM EST Reason for Appointment: Patient ID: Arabella Hernandez is a 33 y.o. female who presents for Well Women Visit Patient presents today for Annual Exam. MEDICATIONS Current Outpatient Medications Medication Instructions escitalopram (LEXAPRO) 20 mg, Oral, Daily, Patient will need to have an appointment prior to needing more refills. ibuprofen 400 MG tablet TAKE 2 TABLETS BY MOUTH EVERY 8 HOURS metFORMIN XR (GLUCOPHAGE-XR) 500 mg, Oral, Daily with evening meal, Do not crush, chew, or split. mupirocin (Bactroban) 2 % ointment 1 Application, 3 times daily norethindrone (Micronor) 0.35 MG tablet 1 tablet, Oral, Daily omeprazole (PRILOSEC) 20 mg, Oral, Nightly, Do not crush or chew. Vit-Fe Fumarate-FA ( Vitamins) 28-0.8 MG tablet 1 tablet, Oral, Daily ALLERGIES No Known Allergies PROBLEMS Active Ambulatory Problems Diagnosis Date Noted Nail fungal infection 06/04/2023 Incisional hernia, without obstruction or gangrene 01/21/2024 Resolved Ambulatory Problems Diagnosis Date Noted History [...] Name Age of Onset Hypertension Mother Dl Sheriff COPD Mother Dl Sheriff Breast cancer Mother [...] EXPLORATORY LAPAROTOMY 01/2020 WISDOM TOOTH EXTRACTION 2012 [place] Teeth REVIEW OF SYSTEMS Review of Systems: Review of Systems Constitutional: Negative. HENT: Negative. Eyes: Negative. Respiratory: Negative. Cardiovascular: Negative. Gastrointestinal: Negative. Genitourinary: Negative. Musculoskeletal: Negative. Skin: Negative. Neurological: Negative. All other systems reviewed and are negative. Hematological: Negative. Endocrine: Negative. Allergic/Immunologic: Negative. OBJECTIVE Objective: Physical Exam Constitutional: Appearance: Normal appearance. She is well-developed. Genitourinary: Vulva normal. Breasts: Breasts are soft. Right: Normal. Left: Normal. Cardiovascular: Rate and Rhythm: Normal rate and [...] nursing note reviewed. Exam conducted with a hadoop administrator present. Vitals: Estimated body mass index is 42.29 kg/m as calculated from the following: Height as of 24: 5' 1 . Weight as of this encounter: 223 lb 12.8 oz. BP: 120/74 No LMP recorded. ASSESSMENT & PLAN ICD-10-CM 1. Well woman exam with routine gynecological exam Z01.419 Pap Smear HPV DNA probe, amplified Annual Exam: Patient presents today for an annual exam. Patient states she is doing well and has no complaints. Pap was obtained without difficulty. Desires control preg test neg. Rx for slynd faxed to pharmacy. Orders Placed This Encounter Procedures HPV DNA probe, amplified Follow Up: Patient is to return in one year for annual unless needed otherwise. Documented by Terrie Quick LPN on behalf of: Rao Guadalupe DO documented in this encounterMercy Hospital South, formerly [facility] [id number] Miscellaneous Notes* Psychiatric Progress Note - Augustina Interiano MD - 05/10/2024 10:00 AM EST [address] [facility] [id number] Patient: Arabella Hernandez Date of : 1990 [...] months old daughter). Works as needed at [employer]. As per previous note Chart and labs were reviewed. Last time patient was seen for initial psychiatric evaluation on 03/15/2023. Patient reported that she is here to get refill of Lexapro 20 mg PO daily. She is getting refill from her GUN EXAMINER who recommended to see psychiatrist and get refill. Has been taking Lexapro since 04/2023. She also took Lexapro during her last . Stopped taking Zoloft on 04/2023 as she did not like. Pt reported that she is doing good with current medication . As per previous note Chart and labs were reviewed. As per note of Montrell Timmons APRN-RODRICK, PCP on02/08/23 Patient following up for depression anxiety today as this has gotten much worse with panicattacks but she recently found out she was about 5 weeks . She is not willing to start any medications for anxiety while she is until she talks to her OBGYN. She is also 6 months and she is a . She recently moved to [place] and is wanting a primary care referral. She is going through a divorce and her current is with her new relationship . Has 7 months old boy and is not for last 1 month. Has 6 yr old daughter with ex boyfriend. Going through divorce with 7 months old son's and is since 05/2022. She was for more than 1 yr. Relocated to [place] on 08/2022 from [place] for boyfriend of 10 months. Currently patient is with boyfriend. They want to continue . THA is 10/05/23. Has depression andanxiety since 2016. Since then she has been seen by several therapists and a psychiatrist. Last appo intment with psychiatrist was 2 and 1/2 yrs ago. Last appointment with therapist 1 and 1/2 yrs ago.Pt was on Lexapro (few weeks and stopped taking it because 6 yrs ago), Wellbutrin (causedirritability), Ativan (helpful) and Cymbalta (caused foggy vision and took for 6 months). Off medication for last 1 and 1/2 yrs. Has restarted medication since 03/2023 which is prescribed by her GUN EXAMINER. Patient was seen by Maine Meneses LPN on 03/09/23 for initial visit. Has monthly appointment with GUN EXAMINER. Has thought of it would be better not be here off and on for last few months as she is going through financial crisis. Last thought was few weeks ago. Denied any suicidal ideations. Denied any access of guns or weapons. Pt is currently on Lexapro 20 mg PO daily. Compliant with medication with no side effects. Sleep isgood. Depression is 1/10 and anxiety is 4/10 [...] or drug may need to be discontinued. 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 Patient endorsed to understand the discussion. LMP: not have period yet after delivery of baby 7 months ago. Partner takes precaution. Medications: denied Increased the dose of Lexapro from 20 mg to 30 mg PO daily for anxiety and depression. Pt will take1 and 1/2 tablets for Lexapro 20 mg (30 mg). 1. Anxiety disorder, unspecified type 2. Recurrent major depressive disorder, in partial remission ([facility]) AIMS none present PHQ 9 = Other Scales used: HAM-A Geriatric Depression Scale: Adult ADD Checklist: [place] Suicide Severity Rating Scale (C-SSRS): low risk [...] past medical history, past social history, past surgicalhistory and problem list. Past Medical History: Diagnosis Date Anxiety Carpal tunnel syndrome Depression Enlarged ovary GERD (gastroesophageal reflux disease) Low back pain Obesity Sleep apnea cpap Visual impairment Past Surgical History: Procedure Laterality Date SECTION 09/24/2023 DAVINCI REPAIR HERNIA UMBILICAL WITH MESH N/A 02/26/2024 Performed by Mari Arora MD at [facility] DAVINCI REPAIR HERNIA VENTRAL WITH MESH N/A 02/26/2024 Performed by Mari Arora MD at [facility] EXPLORATORY LAPAROTOMY INJECTION MEDIAL BRANCH NERVE BLOCK Bilateral L 4/5, 5/1 Bilateral 10/31/2019 Performed by Mina Silva MD at [facility] INJECTION MEDIAL BRANCH NERVE BLOCK Bilateral L 4/5,5/1 Bilateral 09/19/2019 Performed by Mina Silva MD at [facility] INJECTION SACROILIAC NERVE Bilateral 05/02/2019 Performed by Mina Silva MD at [facility] WISDOM TOOTH EXTRACTION 09/2011 Current Outpatient Medications [...] tablet (20 mg total) by mouth nightly Indications:gastroesophageal reflux disease. PLUS, CALCIUM CARB, 27 mg [...] Take 1 capsule by mouth in the morning.,Disp: , Rfl: cranberry fruit (CRANBERRY) 450 mg [...] daily for anxiety and depression. Pt will take1 and 1/2 tablets for Lexapro from 20 [...] Patient was given the phone numbers of [facility] (Rescue crisis) [phone] and National Suicide Hotline: 006. Medication side effects, risks, benefits, and treatment [...] . AUGUSTINA INTERIANO MD documented in this encounterKettering [facility] CenterBenef[facility] Up Health [id number] Progress note* Psychiatric Progress Note - Augustina Interiano MD - 05/10/2024 10:00 AM EST [address] [facility] [address] Patient: Arabella Hernandez Date of : 1990 [...] months old daughter). Works as needed at [employer]. As per previous note Chart and labs were reviewed. Last time patient was seen for initial psychiatric evaluation on 03/15/2023. Patient reported that she is here to get refill of Lexapro 20 mg PO daily. She is getting refill from her GUN EXAMINER who recommended to see psychiatrist and get refill. Has been taking Lexapro since 04/2023. She also took Lexapro during her last . Stopped taking Zoloft on 04/2023 as she did not like. Pt reported that she is doing good with current medication . As per previous note Chart and labs were reviewed. As per note of JEANINE Dai, PCP on02/08/23 Patient following up for depression anxiety today as this has gotten much worse with panicattacks but she recently found out she was about 5 weeks . She is not willing to start any medications for anxiety while she is until she talks to her OBGYN. She is also 6 months and she is a . She recently moved to [place] and is wanting a primary care referral. She is going through a divorce and her current is with her new relationship . Has 7 months old boy and is not for last 1 month. Has 6 yr old daughter with ex boyfriend. Going through divorce with 7 months old son's and is since 05/2022. She was for more than 1 yr. Relocated to [place] on 08/2022 from [place] for boyfriend of 10 months. Currently patient is with boyfriend. They want to continue . THA is 10/05/23. Has depression andanxiety since 2016. Since then she has been seen by several therapists and a psychiatrist. Last appo intment with psychiatrist was 2 and 1/2 yrs ago. Last appointment with therapist 1 and 1/2 yrs ago.Pt was on Lexapro (few weeks and stopped taking it because 6 yrs ago), Wellbutrin (causedirritability), Ativan (helpful) and Cymbalta (caused foggy vision and took for 6 months). Off medication for last 1 and 1/2 yrs. Has restarted medication since 03/2023 which is prescribed by her GUN EXAMINER. Patient was seen by Maine Meneses LPN on 03/09/23 for initial visit. Has monthly appointment with GUN EXAMINER. Has thought of it would be better not be here off and on for last few months as she is going through financial crisis. Last thought was few weeks ago. Denied any suicidal ideations. Denied any access of guns or weapons. Pt is currently on Lexapro 20 mg PO daily. Compliant with medication with no side effects. Sleep isgood. Depression is 1/10 and anxiety is 4/10 [...] or drug may need to be discontinued. 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 Patient endorsed to understand the discussion. LMP: not have period yet after delivery of baby 7 months ago. Partner takes precaution. Medications: denied Increased the dose of Lexapro from 20 mg to 30 mg PO daily for anxiety and depression. Pt will take1 and 1/2 tablets for Lexapro 20 mg (30 mg). 1. Anxiety disorder, unspecified type 2. Recurrent major depressive disorder, in partial remission ([facility]-HCC) AIMS none present PHQ 9 = Other Scales used: HAM-A Geriatric Depression Scale: Adult ADD Checklist: [place] Suicide Severity Rating Scale (C-SSRS): low risk [...] past medical history, past social history, past surgicalhistory and problem list. Past Medical History: Diagnosis Date Anxiety Carpal tunnel syndrome Depression Enlarged ovary GERD (gastroesophageal reflux disease) Low back pain Obesity Sleep apnea cpap Visual impairment Past Surgical History: Procedure Laterality Date SECTION 09/24/2023 DAVINCI REPAIR HERNIA UMBILICAL WITH MESH N/A 02/26/2024 Performed by Mari Arora MD at [facility] DAVINCI REPAIR HERNIA VENTRAL WITH MESH N/A 02/26/2024 Performed by Mari Arora MD at [facility] EXPLORATORY LAPAROTOMY INJECTION MEDIAL BRANCH NERVE BLOCK Bilateral L 4/5, 5/1 Bilateral 10/31/2019 Performed by Mina Silva MD at [facility] INJECTION MEDIAL BRANCH NERVE BLOCK Bilateral L 4/5,5/1 Bilateral 09/19/2019 Performed by Mina Silva MD at [facility] INJECTION SACROILIAC NERVE Bilateral 05/02/2019 Performed by Mina Silva MD at [facility] WISDOM TOOTH EXTRACTION 09/2011 Current Outpatient Medications [...] tablet (20 mg total) by mouth nightly Indications:gastroesophageal reflux disease. PLUS, CALCIUM CARB, 27 mg [...] Take 1 capsule by mouth in the morning.,Disp: , Rfl: cranberry fruit (CRANBERRY) 450 mg [...] daily for anxiety and depression. Pt will take1 and 1/2 tablets for Lexapro from 20 [...] Patient was given the phone numbers of [facility] (Rescue crisis) [phone] and National Suicide Hotline: 436. Medication side effects, risks, benefits, and treatment [...] planning to become . AUGUSTINA INTERIANO MD [facility]02-07-2025 History of Present illness Narrative* Montrell Timmons, GLASS TECHNOLOGIST-SCREEN PRINTING EQUIPMENT SETTER - 05/09/2024 10:40 AM EST IM PROGRESS NOTE Patient - Arabella Hernandez [...] serious comorbidity and body mass index (BMI) of40.0 to 44.9 in adult ([facility]) Discussed goal BMI of less than 25% and patient tells Dr. Hubbard she will start exercising with homegym but currently is not performing any exercise [...] to avoid Tylenol and alcohol for the timebeing as well as avoid Depo injection, mini pill or low-dose progesterone pills should be fine. Angelakatharine bring this up to her OBGYN when [...] Cardiovascular risk score >7.5%, or ASCVD Risk Talent Manager >5%, then score 1 point, otherwise 0: [...] Take 1 capsule by mouth in the morning.,Disp: , Rfl: cranberry fruit (CRANBERRY) 450 mg [...] Dr. Hubbard PFT: N/A Mari Hubbard DO., [facility] Physicians Office: [phone] JEANINE Dai 05/09/24 1312 documented in this encounterChillicothe [facility]01-10-2025 Miscellaneous Notes* Psychiatric Progress Note - Augustina Interiano MD - 04/11/2024 10:00 AM EST Images from the original note [...] daily. She is getting refill from her GUN EXAMINER who recommended to see psychiatrist and get [...] 6 months old daughter). Works as needed [employer]. Is not seeing therapist currently as she is doing good. As per previous note Chart and labs were reviewed. As per note of JEANINE Dai, PCP on02/08/23 Patient following up for depression anxiety today as this has gotten much worse with panicattacks but she recently found out she was about 5 weeks . She is not willing to start any medications for anxiety while she is until she talks to her OBGYN. She is also 6 months and she is a . She recently moved to [place] and is wanting a primary care referral. She is going through a divorce and her current is with her new relationship . Has 7 months old boy and is not for last 1 month. Has 6 yr old daughter with ex boyfriend. Going through divorce with 7 months old son's and is since 05/2022. She was for more than 1 yr. Relocated to [place] on 08/2022 from [place] for boyfriend of 10 months. Currently patient is with boyfriend. They want to continue . THA is 10/05/23. Has depression andanxiety since 2016. Since then she has been seen by several therapists and a psychiatrist. Last appo intment with psychiatrist was 2 and 1/2 yrs ago. Last appointment with therapist 1 and 1/2 yrs ago.Pt was on Lexapro (few weeks and stopped taking it because 6 yrs ago), Wellbutrin (causedirritability), Ativan (helpful) and Cymbalta (caused foggy vision and took for 6 months). Off medication for last 1 and 1/2 yrs. Has restarted medication since 03/2023 which is prescribed by her GUN EXAMINER. Patient was seen by Maine Meneses LPN on 03/09/23 for initial visit. Has monthly appointment with GUN EXAMINER. Has thought of it would be better [...] 2-3/10 (10 being the worst). No panic attack.No mood swing. Currently Pt denied suicidal/homicidal ideation, [...] or drug may need to be discontinued. 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 Patient endorsed [...] Take 1 capsule by mouth in the morning.,Disp: , Rfl: cranberry fruit (CRANBERRY) 450 mg [...] Other Scales used: HAM-A Adult ADD Checklist: [place] Suicide Severity Rating Scale (C-SSRS): low risk [...] disease Paternal Grandfather Psychosocial History: (developmental, educational, anabaptism, legal, marriage, parenting of children, living arrangements, important relationships, stressors) Developmental: traumatic as mother has hx of drug and alcohol Educational: associate degree for applied science Marital & Parenting of Children: . Has boyfriend. Has 3 children Living arrangements: boyfriend and 3 children Important relationships: boyfriend Stressors: denied Legal issues: denied Financial concerns: denied Yarsani affiliations: denied Occupational History: Job title: as [...] Recurrent major depressive disorder, in partial remission ([facility]) STRENGTHS : children LIMITATIONS: anxiety PREFERENCES: none Treatment plan: Goals, Objectives & Interventions Goals, Objectives, Interventions Diagnoses and all orders for this visit: Anxiety disorder, unspecified type - escitalopram (LEXAPRO) 20 mg tablet; Take 1 tablet orally daily Recurrent major depressive disorder, in partial remission ([facility]) - escitalopram (LEXAPRO) 20 mg tablet; Take [...] Patient was given the phone numbers of [facility] (Rescue crisis) [phone] and National Suicide Hotline: 988. Medication side [...] . AUGUSTINA INTERIANO MD documented in this encounterChillicothe [facility]01-10-2025 Progress note* Psychiatric Progress Note - Augustina Interiano MD - 04/11/2024 10:00 AM EST Images from the original note [...] daily. She is getting refill from her GUN EXAMINER who recommended to see psychiatrist and get [...] 6 months old daughter). Works as needed [employer]. Is not seeing therapist currently as she is doing good. As per previous note Chart and labs were reviewed. As per note of Montrell Timmons APRN-RODRICK, PCP on02/08/23 Patient following up for depression anxiety today as this has gotten much worse with panicattacks but she recently found out she was about 5 weeks . She is not willing to start any medications for anxiety while she is until she talks to her OBGYN. She is also 6 months and she is a . She recently moved to [place] and is wanting a primary care referral. She is going through a divorce and her current is with her new relationship . Has 7 months old boy and is not for last 1 month. Has 6 yr old daughter with ex boyfriend. Going through divorce with 7 months old son's and is since 05/2022. She was for more than 1 yr. Relocated to [place] on 08/2022 from [place] for boyfriend of 10 months. Currently patient is with boyfriend. They want to continue . THA is 10/05/23. Has depression andanxiety since 2016. Since then she has been seen by several therapists and a psychiatrist. Last appo intment with psychiatrist was 2 and 1/2 yrs ago. Last appointment with therapist 1 and 1/2 yrs ago.Pt was on Lexapro (few weeks and stopped taking it because 6 yrs ago), Wellbutrin (causedirritability), Ativan (helpful) and Cymbalta (caused foggy vision and took for 6 months). Off medication for last 1 and 1/2 yrs. Has restarted medication since 03/2023 which is prescribed by her GUN EXAMINER. Patient was seen by Maine Meneses LPN on 03/09/23 for initial visit. Has monthly appointment with GUN EXAMINER. Has thought of it would be better [...] 2-3/10 (10 being the worst). No panic attack.No mood swing. Currently Pt denied suicidal/homicidal ideation, [...] or drug may need to be discontinued. 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 Patient endorsed [...] Take 1 capsule by mouth in the morning.,Disp: , Rfl: cranberry fruit (CRANBERRY) 450 mg [...] Other Scales used: HAM-A Adult ADD Checklist: [place] Suicide Severity Rating Scale (C-SSRS): low risk [...] disease Paternal Grandfather Psychosocial History: (developmental, educational, anabaptism, legal, marriage, parenting of children, living arrangements, important relationships, stressors) Developmental: traumatic as mother has hx of drug and alcohol Educational: associate degree for applied science Marital & Parenting of Children: . Has boyfriend. 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 Medication side [...] planning to become . AUGUSTINA INTERIANO MD [facility]01-10-2025 History of Present illness Narrative* Lashonda Sylvester DPM - 04/11/2024 9:15 AM EST Images from the original note were not included. [facility] [address] [facility] [address] [facility] [address] Patient: Arabella Hernandez Account No: [id number] Date: 04/11/2024 Physician: Lashonda Sylvester DPM PCP: JEANINE DAI Problem: Follow-up Nail [...] has been identified and corrected by editing. -Lashonda Sylvester DPM Scribe Statement: Scribed for and in the presence of Lashonda Sylvester DPM by Pastor Benoit 04/11/24 0953 documented in this encounterChillicothe Hospital12-31-2024 History of Present illness Narrative* Lashonda Sylvester DPM - 04/01/2024 3:30 PM EST Images from the original note were not included. [facility] [address] [facility] [address] [facility] [address] Patient ID: Arabella Hernandez is a 33 y.o. female. PCP: MONTRELL TIMMONS APRN-RODRICK Chief Complaint: Chief Complaint Patient presents with Procedure Partial Martixectomy Subjective: This 33 y.o. year old female presents for a partial matrixectomy to bilateral hallux on bilateral borders, left 2nd lateral border, right 2nd medial border, and right 4th medial border. Patient statethat a couple of days ago, she did have some discharge to the medial aspect of her left hallux, buthas resolved. Patient would like to proceed with procedure. Patient has not been on any antibioticsfor months. No other pedal complaints. Lab Review: [...] Camila Rodriguez 04/01/24 1541 documented in this encounterChillicothe Hospital12-19-2024 History of Present illness Narrative* Montrell Timmons APRN-RODRICK - 03/20/2024 11:00 AM EST [address] [facility] [address] Patient: Arabella Hernandez Date of : 1990 Encounter Date: 03/20/2024 History of Present Illness: The patient is a 33 y.o. female, an established patient, and is here for No chief complaint on file. . HPI Patient has multiple complaints for which she has been discussing with me over [employer]. About 6 months ago she started to develop headaches daily, blurry vision that is becoming worse, and occasionaldizziness. She cannot determine a pattern for this [...] with eye movements. [facility] to schedule an ophthalmology appointment and she has this set up in April But would like a referral sent so she can get in sooner. She denies any family history of autoimmune conditions such as MS. She is 6 months and still but also supplements with formula. Patient denies any falling or syncope, changes with her blood pressure or Recent shortness a breathor asthma exacerbations. Patient feels her moods are fairly stable on the Lexapro. [facility] [place] to come to [place] for appointments. To note pt also recently had hernia repair surgery that went well and she is trying to follow her lifting restrictions though she does have a 6 mo old. Video Visit via Real-time Synchronous Audiovisual Provider Location: [facility] [address] [facility] [address] Patient Location: Patient's home Video Visit Consent Statement: I discussed risks, benefits, and alternatives of a real-time synchronous audiovisual consultation with the patient (and any accompanying persons) including the risks that the patient's personal health details and medical records will be discussed over real-time, synchronous, interactive video/audio/telecommunication technology, the visit will not be recorded withoutthe express consent of both the provider and the patient, and that there are some limitations compared to [id number] evaluations. The patient consented to the presence of additional virtual and/or in-person participants. We elected to proceed. Problem List Items Addressed This Visit Other Mixed anxiety and depressive disorder Other Visit Diagnoses Blurry vision, bilateral - Primary Relevant Orders [facility] - [place], [place] MR brain without contrast Chronic migraine without aura without status migrainosus, not intractable Relevant Orders MR brain without contrast Dizziness Past Medical, Family, and Social History Update: The following portions of the patient's history were reviewed and updated as appropriate: allergies, current medications, past family history, past medical history, past social history, past surgicalhistory and problem list. Past Medical History: Diagnosis Date Anxiety Carpal tunnel syndrome Depression Enlarged ovary GERD (gastroesophageal reflux disease) Low back pain Obesity Sleep apnea cpap Visual impairment Past Surgical History: Procedure Laterality Date SECTION 09/24/2023 DAVINCI REPAIR HERNIA UMBILICAL WITH MESH N/A 02/26/2024 Performed by Mari Arora MD at [facility] DAVINCI REPAIR HERNIA VENTRAL WITH MESH N/A 02/26/2024 Performed by Mari Arora MD at [facility] EXPLORATORY LAPAROTOMY INJECTION MEDIAL BRANCH NERVE BLOCK Bilateral L 4/5, 5/1 Bilateral 10/31/2019 Performed by Mina Silva MD at [facility] INJECTION MEDIAL BRANCH NERVE BLOCK Bilateral L 4/5,5/1 Bilateral 09/19/2019 Performed by Mina Silva MD at [facility] INJECTION SACROILIAC NERVE Bilateral 05/02/2019 Performed by Mina Silva MD at [facility] WISDOM TOOTH EXTRACTION 09/2011 Current Outpatient Medications [...] tablet (20 mg total) by mouth nightly Indications:gastroesophageal reflux disease. PLUS, CALCIUM CARB, 27 mg [...] video call today, she is feeding her daughter Assessment and Plan: Diagnoses and all orders for this visit: Blurry vision, bilateral - [facility] - [place], [place]; Future - MR brain without contrast; Future Chronic migraine without aura without status migrainosus, not intractable - MR brain without contrast; Future Mixed anxiety and depressive disorder Dizziness Follow-up: Multiple neurologic complaints that are worsening for last 0.5-1 year. Unable to see pt in office as she lives in [place] now and cannot make the drive often. [...] and muscle relaxant when she is finished withbreastfeeding. For now she can continue Mg supplement and tylenol OTC as needed for pain as well asheat and increased hydration. F/u after above testing. [id number] 16 min JEANINE DAI APRN-CNP 03/24/24 1619 documented in this encounterChillicothe Hospital12-12-2024 History of Present illness Narrative* Mari Arora MD - 03/13/2024 4:00 PM EST Chief Complaint: History of Present Illness: Arabella [...] 02/26/2024 Performed by Mari Arora MD at [facility] DAVINCI REPAIR HERNIA VENTRAL WITH MESH N/A 02/26/2024 Performed by Mari Arora MD at [facility] EXPLORATORY LAPAROTOMY INJECTION MEDIAL BRANCH NERVE BLOCK Bilateral L 4/5, 5/1 Bilateral 10/31/2019 Performed by Mina Silva MD at [facility] INJECTION MEDIAL BRANCH NERVE BLOCK Bilateral L 4/5,5/1 Bilateral 09/19/2019 Performed by Mina Silva MD at [facility] IN[facility]CTION SACROILIAC NERVE Bilateral 05/02/2019 Performed by Mina Silva MD at [facility] WISDOM TOOTH EXTRACTION 09/2011 No Known Allergies Current Outpatient Medications: acidophilus-pectin, citrus 100 million cell-10 mg capsule, Take 1 capsule by mouth in the morning.,Disp: , Rfl: cranberry fruit (CRANBERRY) 450 mg [...] results found for: INR , PROTIME Assessment: Arabelal Hernandez is a 33 y.o.female with recent minimally invasive repair ventral hernia, doingwell Plan: Activity restrictions discussed. Return here as needed Mari Arora MD [facility] General Surgery documented in this encounterChillicothe Hospital12-05-2024 History of Present illness Narrative* Mara Arnold MD - 03/06/2024 8:40 AM ESTAssociated Order(s): $ Carpal Tunnel Injection: R carpal tunnel Post-Procedure Diagnose(s): Bilateral carpal tunnel syndrome [facility] Chief Complaint: Chief Complaint Patient presents with Right Hand - Pain, Numbness Pt states she was diagnosed w/ CTS by EMG approx 10 yrs. C/o achy pain, stiffness, numbness. Pt states during her her sx worsened. Pt states she has a lot of pain in the wrist and sometimesit is sharp, shooting pain. Pt wears braces at night on occasion. RT>LT Left Hand - Pain, Numbness Pt states she was diagnosed w/ CTS by EMG approx 10 yrs. C/o achy pain, stiffness, numbness. Pt states during her her sx worsened. Pt states she has a lot of pain in the wrist and sometimesit is sharp, shooting pain. Pt wears braces at night on occasion. RT>LT HPI Arabella Hernandez is a 33 y.o. right-hand dominant female who presents today for evaluation of her bilateral hands. She reports numbness and tingling mostly in her thumb index and long finger. Thesymptoms are worse on her right than her [...] hands. She states she did have an EMGdone a proximally 10 years ago which did show mild carpal tunnel syndrome in both hands. She deniesany injuries to either hand. Examination: bilateral upper [...] for this today. . All questions were answered.Patient tolerated the right carpal tunnel injection well [...] to face evaluation on this patient. I discussedwith the patient and confirmed the accuracy and completeness of the aforementioned history, and I personally performed the clinical examination of the patient. I have established and discussed the course of treatment with the patient and Physician Textile Clothing And Footwear Mechanic. My medical decision making and treatmentplan are as follows. Arabella Hernandez and I did discuss clinical history and physical exam consistent with right greater than left carpal tunnel syndrome. We did discuss pathology associated with this. We did discussthe spectrum of treatment options to include bracing, [...] include infection, bleeding, damage to Nerve/Vessel/Ligament/Tendon, delayed ve rsus incomplete/incorrect healing, incomplete relief of symptoms, continued [...] the time of surgery. documented in this encounterChill[facility]12-05-2024 Instructions* Patient Instructions* Mara Arnold MD - 03/06/2024 8:40 AM EST Images from the original note were not included. documented in this encounterChillicothe Hospital11-22-2024 History of Present illness Narrative* Lashonda Sylvester DPM - 02/22/2024 10:30 AM EST Images from the original note were not included. [facility] [address] [facility] [address] [facility] [address] Patient ID: Arabella Hernandez is a 33 [...] 10/31/2019 Performed by Mina Silva MD at [facility] INJECTION MEDIAL BRANCH NERVE BLOCK Bilateral L 4/5,5/1 Bilateral 09/19/2019 Performed by Mina Silva MD at [facility] INJECTION SACROILIAC NERVE Bilateral 05/02/2019 Performed by Mina Silva MD at [facility] WISDOM TOOTH EXTRACTION 09/2011 Family History: Family [...] tablet (20 mg total) by mouth nightly Indications:gastroesophageal reflux disease. PLUS, CALCIUM CARB, 27 mg [...] (!) 35.7 C (96.3 F) Lab Review: @[id number]@ No results found for: HGBA1C Physical Exam: [...] been identified and corrected by editing. Lashonda Sylvester DPM Scribe Statement: Scribed for and in the presence of Lashonda Sylvester DPM by Pastor Benoit 02/22/24 1118 documented in this encounterKettering Health – Soin Medical CenterAito BV [id number] Instructions* Pre- Procedure Instructions - Alexandra Pa RN - 02/14/2024 10:30 AM EST Your surgery/procedure is scheduled at [facility] on 02/26/2024 at 0800 Arrival Time 0600 [facility] Address: [address] [place] [address], [facility], [address] [address] in the Emergency Center Parking lot. Report to the assistant front desk manager in the Emergency/Surgery Registration lobby of the hospital. Notify your SURGEON if you develop any illness such as a cold, cough, fever, sore throat, vomiting or are hospitalized between now and your surgery. Please call Pre-Admission Clinic at [phone] if you have any questions prior to surgery. For questions the morning of surgery, call the Pre-op Department at [phone]. Medication Instructions (Do not stop your medications [...] specifically instructed by your surgeon to hold. STOPtaking all herbal products/teas one week prior to [...] would like to schedule therapy at a [facility] facility, please call [phone] ([phone]). Do not use lotions, creams, powders, perfume, make up, cologne or after-shaves day of surgery. Remove ALL jewelry including wedding rings, body piercings, hair extensions that contain metal, nail finnish, make-up, and contact lens. You may brush your teeth the morning of surgery, but do not swallow the water. Wear your dentures and partial plates to the hospital (no adhesive). Shower the night the before. If applicable, use the CHG (chlorhexidine gluconate) soap or wipes. Please be advised, [place] has transitioned to a cashless payment system. What should I bring to the hospital? If you received a green plastic bracelet, bring it with you the day of surgery and your nurse will put it on you. Eyeglass or contact lens case If you will be spending the night, please bring personal care items and leave them in the car untilyou are taken to your room after surgery. [...] following some types of surgeries involving the eyes,ears, sinuses and throat. Always follow your doctor's [...] RIGHTS AND RESPONSIBILITIES As a patient at [facility], you have the right to: Receive medical care and be informed of who is taking care of you Be treated with dignity and respect Have a family member/telephone services sales representative of choice and your physician notified of your admission Receive information and actively participate in decisions about your care and treatment Refuse care, treatment and services Decide who may provide your support and speak for you Access anabaptism and spiritual services Participate in ethical issues [...] of hospital charges and payment methods Patient/patient telephone services sales representative responsibilities are to: Provide information [...] RIGHTS AND RESPONSIBILITIES As a patient at [facility], you have the right to: Receive medical care and be informed of who is taking care of you Be treated with dignity and respect Have a family member/telephone services sales representative of choice and your physician notified of your admission Receive information and actively participate in decisions about your care and treatment Refuse care, treatment and services Decide who may provide your support and speak for you Access anabaptism and spiritual services Participate in ethical issues [...] of hospital charges and payment methods Patient/patient telephone services sales representative responsibilities are to: Provide information [...] Control department if you have any questions. [facility]11-[facility] Miscellaneous Notes* Pre-Procedure Instructions - Alexandra Pa RN - 02/14/2024 10:30 AM EST Your surgery/procedure is scheduled at [facility] on 02/26/2024 at 0800 Arrival Time 0600 [facility] Address: [address] [place] [address], [address] [place] [address] in the Emergency Center Parking lot. Report to the assistant front desk manager in the Emergency/Surgery Registration lobby of the hospital. Notify your SURGEON if you develop any illness such as a cold, cough, fever, sore throat, vomiting or are hospitalized between now and your surgery. Please call Pre-Admission Clinic at [phone] if you have any questions prior to surgery. For questions the morning of surgery, call the Pre-op Department at [phone]. Medication Instructions (Do not stop your medications [...] specifically instructed by your surgeon to hold. STOPtaking all herbal products/teas one week prior to [...] would like to schedule therapy at a [facility] facility, please call [phone] ([phone]). Do not use lotions, creams, powders, perfume, make up, cologne or after-shaves day of surgery. Remove ALL jewelry including wedding rings, body piercings, hair extensions that contain metal, nail finnish, make-up, and contact lens. You may brush your teeth the morning of surgery, but do not swallow the water. Wear your dentures and partial plates to the hospital (no adhesive). Shower the night the before. If applicable, use the CHG (chlorhexidine gluconate) soap or wipes. Please be advised, [facility] has transitioned to a cashless payment system. What should I bring to the hospital? If you received a green plastic bracelet, bring it with you the day of surgery and your nurse will put it on you. Eyeglass or contact lens case If you will be spending the night, please bring personal care items and leave them in the car untilyou are taken to your room after surgery. [...] following some types of surgeries involving the eyes,ears, sinuses and throat. Always follow your doctor's [...] RIGHTS AND RESPONSIBILITIES As a patient at [facility], you have the right to: Receive medical care and be informed of who is taking care of you Be treated with dignity and respect Have a family member/telephone services sales representative of choice and your physician notified of your admission Receive information and actively participate in decisions about your care and treatment Refuse care, treatment and services Decide who may provide your support and speak for you Access anabaptism and spiritual services Participate in ethical issues [...] of hospital charges and payment methods Patient/patient telephone services sales representative responsibilities are to: Provide information [...] RIGHTS AND RESPONSIBILITIES As a patient at [facility], you have the right to: Receive medical care and be informed of who is taking care of you Be treated with dignity and respect Have a family member/telephone services sales representative of choice and your physician notified of your admission Receive information and actively participate in decisions about your care and treatment Refuse care, treatment and services Decide who may provide your support and speak for you Access anabaptism and spiritual services Participate in ethical issues [...] of hospital charges and payment methods Patient/patient telephone services sales representative responsibilities are to: Provide information [...] you have any questions. documented in this encounterChillicothe Hospital11-11-2024 History of Present illness Narrative* Mari Arora MD - 02/11/2024 10:30 AM EST Images from the original note [...] evaluation with her OBGYN physician. I did reviewher most recent CBC which was relatively normal [...] 10/31/2019 Performed by Mina Silva MD at [facility] INJECTION MEDIAL BRANCH NERVE BLOCK Bilateral L 4/5,5/1 Bilateral 09/19/2019 Performed by Mina Silva MD at [facility] INJECTION SACROILIAC NERVE Bilateral 05/02/2019 Performed by Mina Silva MD at [facility] WISDOM TOOTH EXTRACTION 09/2011 No Known Allergies [...] perform this in a minimally invasive robotic fashion.If she has severe intra-abdominal adhesions an open approach may become necessary, but I think thisis unlikely.I have specifically discussed the use of prosthetic mesh with this patient for hernia repair. This will be a major elective surgical procedure under general anesthesia. She will have multiple high-risk factors related to BMI of 43, asthma, sleep apnea. Surgery will be arranged in the near future. Mari Arora MD [facility] General Surgery documented in this encounterVermont State HospitalOvaScience10-28-2024 History of Present illness Narrative* Kwaku Guadalupe MD - 01/28/2024 1:15 PM EDT Asynchronous E-Visit I have reviewed the patient entered E-Visit (Electronic Visit) request and the patient responses tothe questions contained in the condition-specific questionnaire submitted. The patient's symptom isappropriate for an E-Visit, and they consented to understanding the potential risks, benefits, and alternatives of E-Visit delivery of care. The patient agreed to the E-Visit MyChart terms and conditions including the cost of care for the E-Visit and desires to be treated via an E-Visit. The patient is an established patient, but is not seeking information exclusively about a problem treated during a ovhn-iu-ekkh encounter in the last seven days. E-Visit [...] or visual problems. I have pain in theback left side of my throat, making it difficult to swallow. Vision problems are possibly due to myeyes being dry and irritated. No severe breathing [...] heart disease, or lung disease, or any illnessthat would weaken your body's ability to fight [...] days. Dispense: 14 tablet Refill: 0 Arabella Hernandez was sent a [employer] message notifying them of the completed E-Visit. [...] responses): EVisit Evaluation and Management: 5-10 minutes ([id number]) Kwaku Guadalupe MD documented in this encounterChillicothe Hospital10-21-2024 History of Present illness Narrative* Maryann Lebron, FIDENCIO - 01/21/2024 10:[address] a Reason for Appointment: Patient ID: [...] Name Age of Onset Hypertension Mother Dl Sheriff COPD Mother Dl Sheriff Breast cancer Mother [...] EXPLORATORY LAPAROTOMY 01/2020 WISDOM TOOTH EXTRACTION 2012 [place] Teeth REVIEW OF SYSTEMS Review of Systems: [...] nursing note reviewed. Exam conducted with a hadoop administrator present. Vitals: Estimated body mass index is [...] of: Rao Guadalupe DO documented in this encounterMercy Hospital South, formerly St. [facility] Medical [id number] History of Present illness Narrative* Pati Parker MD - 01/14/2024 3:30 PM EDT SUBJECTIVE Chief Complaint: Urinary incontinence, fecal incontinence, [...] form of postvoid dribbling. She notes urinary frequencyand nocturia with 2-4 voids nightly. No dysuria, gross hematuria, recurrent infections, symptoms ofvoiding dysfunction. No prior treatments for these symptoms. She is also bothered by perineal pain. This occurs during and after intercourse. She states that the perineum feels weak . Pain includes burning and stretching type symptoms. She believes she may occasionally note passage of stool into the vagina. This most typically occursafter intercourse. She sees it on the toilet paper with wiping. She believes she may pass gas through the vagina as well. She is bothered by fecal incontinence. This occurs in small volumes with loose stool most typicallybut may also occur even with formed stool. [...] 10/31/2019 Performed by Mina Silva MD at [facility] INJECTION MEDIAL BRANCH NERVE BLOCK Bilateral L 4/5,5/1 Bilateral 09/19/2019 Performed by Mina Silva MD at [facility] INJECTION SACROILIAC NERVE Bilateral 05/02/2019 Performed by Mina Silva MD at [facility] WISDOM TOOTH EXTRACTION 09/2011 Social History Tobacco [...] hard coughing or Valsalva? not present Modified [place] Scale 0-5: 1, minor muscle flicker POP-Q: [...] incontinence, most typically with loose stool. We discussedstool bulking with high-fiber diet and addition of [...] and similarly generated notes. documented in this encounterChillicothe Hospital09-12-2024 History of Present illness Narrative* Montrell Timmons, GLASS TECHNOLOGIST-SCREEN PRINTING EQUIPMENT SETTER - 12/13/2023 10:40 AM EDT [address] [place] [address] Patient: Arabella Hernandez Date of : 1990 Encounter Date: 12/13/2023 History of Present Illness: The patient is a 33 y.o. female, an established patient, and is here for Chief Complaint Patient presents with Annual Exam . HPI Patient is here for her wellness exam. She is 3 months after C- section with her daughter. She is a . She goes back to work Sunday after maternity leave. She is currently breastfeedingexclusively and did follow up with her OBGYN for her 6 week check. She was recently diagnosed with obstructive sleep apneas wearing her CPAP every night. Patient is upset and frustrated about her weight gain from having children back to back and is alsocomplaining of some widespread pain in her extremities and trunk like someone is poking me . She iswondering if this is arthritis pain from her weight gain. She states she is also very fatigued during the day despite having her sleep apnea treated. She wakes up 2-4 times per night with her infant to breastfeed. She has not started her mini pill prescription from her OBGYN because she is worried this will deplete her milk supply. Her Pap was normal and up-to-date from her OBGYN. Patient states her depression and anxiety is fairly well controlled and does not want to add any medications today. Problem List Items Addressed This Visit Respiratory KESHIA (obstructive sleep apnea) Other Visit Diagnoses Wellness examination - Primary Relevant Orders Comprehensive metabolic panel Lipid profile Other fatigue Relevant Orders TSH with Reflex Iron deficiency anemia, unspecified iron deficiency anemia type Relevant Orders CBC auto differential Gastroesophageal reflux disease, unspecified whether esophagitis present Past Medical, Family, and Social History Update: The following portions of the patient's history were reviewed and updated as appropriate: allergies, current medications, past family history, past medical history, past social history, past surgicalhistory and problem list. Past Medical History: Diagnosis Date Anxiety Carpal tunnel syndrome Depression Enlarged ovary GERD (gastroesophageal reflux disease) Low back pain Past Surgical History: Procedure Laterality Date SECTION EXPLORATORY LAPAROTOMY [place] EPIDURAL LUMBAR STEROID INJ RO INJECTION MEDIAL BRANCH NERVE BLOCK Bilateral L 4/5, 5/1 Bilateral 10/31/2019 Performed by Mina Silva MD at [facility] INJECTION MEDIAL BRANCH NERVE BLOCK Bilateral L 4/5,5/1 Bilateral 09/19/2019 Performed by Mina Silva MD at [facility] INJECTION SACROILIAC NERVE Bilateral 05/02/2019 Performed by Mina Silva MD at [facility] WISDOM TOOTH EXTRACTION 09/2011 Current Outpatient Medications Medication Sig Dispense Refill escitalopram (LEXAPRO) 20 mg tablet Take 1 tablet (20 mg total) by mouth in the morning. magnesium oxide (MAGOX) 400 mg tablet Take 1 tablet by mouth in the morning and 1 tablet before bedtime 30 tablet 2 norethindrone (MICRONOR) 0.35 mg tablet Take 1 tablet (0.35 mg total) by mouth. omeprazole (PriLOSEC OTC) 20 mg EC tablet Prilosec OTC 20 mg tablet,delayed release PLUS, CALCIUM CARB, 27 mg iron- 1 mg tablet No current facility-administered medications for this visit. (All medications reviewed and updated by provider since last office visit or hospitalization) Allergies: Patient has no known allergies. Tobacco History: Social History Tobacco Use Smoking Status Former Types: Cigarettes Smokeless Tobacco Never (If patient a smoker, smoking cessation counseling offered) Social History: Social History Substance and Sexual Activity Alcohol Use Not Currently Comment: Occasional Review of Systems: Review of Systems Constitutional: Negative for chills, fever and unexpected weight change. HENT: Negative for ear pain and sore throat. Eyes: Negative for pain and visual disturbance. Respiratory: Negative for cough and shortness of breath. Cardiovascular: Negative for chest pain and palpitations. Gastrointestinal: Negative for abdominal pain and vomiting. Genitourinary: Negative for dysuria and hematuria. Musculoskeletal: Negative for arthralgias and back pain. Skin: Negative for color change and rash. Neurological: Negative for seizures and syncope. Psychiatric/Behavioral: Negative. All other systems reviewed and are negative. Physical Exam: BP 120/72 (BP Site: Left Arm, BP Postition: Sitting) Pulse 84 Temp 36.8 C (98.3 F) (Oral) Resp 18 Ht 154.9 cm (5' 1 ) Wt 100.6 kg (221 lb 12.8 oz) LMP 12/29/2022 SpO2 99% BMI 41.91 kg/m Physical Exam Vitals reviewed. Constitutional: Appearance: Normal appearance. HENT: Head: Normocephalic and atraumatic. Right Ear: Ear canal and external ear normal. A middle ear effusion is present. Left Ear: Ear canal and external ear normal. A middle ear effusion is present. Nose: Congestion present. Mouth/Throat: Mouth: Mucous membranes are moist. Eyes: Pupils: Pupils are equal, round, and reactive to light. Neck: Thyroid: No thyroid mass, thyromegaly or thyroid tenderness. Cardiovascular: Rate and Rhythm: Normal rate and regular rhythm. Heart sounds: Normal heart sounds. Pulmonary: Effort: Pulmonary effort is normal. Breath sounds: Normal breath sounds. Abdominal: General: Bowel sounds are normal. Palpations: Abdomen is soft. Tenderness: There is no abdominal tenderness. Musculoskeletal: Right lower leg: No edema. Left lower leg: No edema. Lymphadenopathy: Cervical: No cervical adenopathy. Skin: General: Skin is warm. Capillary Refill: Capillary refill takes less than 2 seconds. Neurological: General: No focal deficit present. Mental Status: She is alert and oriented to person, place, and time. Gait: Gait normal. Psychiatric: Mood and Affect: Mood normal. Behavior: Behavior normal. Thought Content: Thought content normal. Judgment: Judgment normal. Assessment and Plan: Arabella was seen today for annual exam. Diagnoses and all orders for this visit: Wellness examination - Comprehensive metabolic panel; Future - Lipid profile; Future Other fatigue - TSH with Reflex; Future Iron deficiency anemia, unspecified iron deficiency anemia type - CBC auto differential; Future KESHIA (obstructive sleep apnea) Gastroesophageal reflux disease, unspecified whether esophagitis present Follow-up: Health maintenance and immunizations were discussed and recommendations were made, she declines flushot or other immunizations at this time. Check labs as above as cause for her fatigue. Continue wearing CPAP every night and with naps. She is using her Prilosec as needed but still experiencing abdominal pain and GERD symptoms. She agrees to use Prilosec continuously for the next 2 weeks and follow anti-reflux measures. If she does not notice improvement of her GERD symptoms she should return to the office and we will consider EGD. Patient should use other forms of control such as condoms and pull out method if she is not wanting a right now and not wanting to take her mini pill. Pt should follow up in the office when she is done if she continues to have widespread pain and we will assess inflammatory markers. JEANINE DAI APRN-CNP 12/13/23 1712 documented in this encounterChillicothe Hospital07-29-2024 Miscellaneous Notes* Telephone Encounter - Nina Bobo - 10/29/2023 10:46 AM EDT Images from the original note were not included. Please set up wellness when due KESHIA f/u - mask compliance * Telephone Encounter - Nina Bobo - 10/29/2023 10:46 AM EDT Sent shanda msg documented in this encounterProMedica Health [id number] Telephone encounter Note* Telephone Encounter - Nina Bobo - 10/29/2023 10:46 AM EDT Images from the original note were not included. Please set up wellness when due KESHIA f/u - mask compliance [facility]07-29-[facility]24 Telephone encounter Note* Telephone Encounter - Nina Bobo - 10/29/2023 10:46 AM EDT Sent mychart msg [facility]07-25-[facility] History of Present illness Narrative* Darcy Downing LPN - 10/25/2023 1:09 PM EDT Chart notes from 10/22/23 visit with BASSEM and next appointment dated faxed to Omar [facility]ANS as requested. [phone] documented in this encounterChillicothe Hospital07-22-2024 History of Present illness Narrative* Darcy Downing LPN - 10/22/2023 5:52 PM EDT PAP mask and supplies order and recent office notes faxed to [facility]. documented in this encounterChillicothe Hospital07-22-2024 History of Present illness Narrative* JEANINE Dorado - 10/22/2023 2:30 PM EDT Images from the original note were not included. Chief Complaint: Ms. Hernandez is a 33 y.o. female [facility] for: KESHIA HPI: Patient is here today for her 1st compliance visit after starting on PAP therapy The patient reports that she is adherent to her nocturnal ventilatory support for 4-5 hours a night7 days per week. She reports feeling the benefits of wearing it nightly and denies any am fatigue or excessive daytime sleepiness. Denies any aerophagia. Patient denies issues with mask fit or machine use. She denies any dyspnea, fevers, chills, hemoptysis, wheezing, or chest pain. Overall, she is very pleased with her current status. Patient is here with her and 3-week-old baby today. [place] Sleepiness Scale: Sitting and Reading: Slight Chance Watching TV: Slight Chance Sitting inactive in a public place (theater, meeting): Never As a passenger in a car for an hour without a break: Never Lying down in the afternoon to rest: (!) Moderate Chance Sitting and talking to someone: Never Sitting quietly after lunch (without alcohol): Never In a car, while stopped for a few minutes in traffic: Never Total: 4 OARRS: Reviewed: no PMH: Pertinent History: Her pertinent medical history includes Past Medical History: Diagnosis Date Anxiety Carpal tunnel syndrome Depression Enlarged ovary GERD (gastroesophageal reflux disease) Low back pain Medications: Reviewed with patient. Current Outpatient Medications: escitalopram (LEXAPRO) 20 mg tablet, Take 1 tablet (20 mg total) by mouth in the morning., Disp: , Rfl: magnesium oxide (MAGOX) 400 mg tablet, Take 1 tablet by mouth in the morning and 1 tablet before bedtime, Disp: 30 tablet, Rfl: 2 omeprazole (PriLOSEC OTC) 20 mg EC tablet, Prilosec OTC 20 mg tablet,delayed release, Disp: , Rfl: PLUS, CALCIUM CARB, 27 mg iron- 1 mg tablet, , Disp: , Rfl: Vitals: 10/22/23 1429 BP: 111/80 Pulse: 86 SpO2: 95% Weight: 101.2 kg (223 lb) Height: 154.9 cm (5' 1 ) Allergies: Reviewed with patient. Patient has no known allergies. Family History: Family History Problem Relation Age of Onset Hypertension Mother Alcohol abuse Mother COPD Mother Breast cancer Paternal Aunt Lupus Paternal Aunt Breast cancer Maternal Grandmother Diabetes Maternal Grandfather Heart disease Paternal Grandfather Social History: Social History Socioeconomic History Marital status: Legally Tobacco Use Smoking status: Former Types: Cigarettes Smokeless tobacco: Never Vaping Use Vaping status: Never Used Substance and Sexual Activity Alcohol use: Not Currently Comment: Occasional Drug use: No Sexual activity: Yes Partners: Male control/protection: None Social Determinants of Health Financial Resource Strain: Low Risk (02/06/2023) Overall Financial Resource Strain (CARDIA) Difficulty of Paying Living Expenses: Not hard at all Food Insecurity: No Food Insecurity (10/22/2023) Hunger Screening Food Insecurity - Worry: Never True Food Insecurity - Inability: Never True Transportation Needs: No Transportation Needs (02/06/2023) PRAPARE - Transportation Lack of Transportation (Medical): No Lack of Transportation (Non-Medical): No Housing Instability: Low Risk (02/06/2023) Housing Instability Housing Instability: No Travel History: Denies recent travel. ROS: Review of Systems Constitutional: Positive for fatigue. Negative for fever and chills. HENT: Negative for postnasal drip and rhinorrhea. Respiratory: Negative for cough and shortness of breath. Cardiovascular: Negative for chest pain and palpitations. Physical Examination: Vital signs BP 111/80 Pulse 86 Ht 154.9 cm (5' 1 ) Wt 101.2 kg (223 lb) LMP 12/29/2022 SpO2 95% BMI 42.14 kg/m Physical Exam Vitals and nursing note reviewed. Constitutional: Appearance: Normal appearance. She is obese. Cardiovascular: Rate and Rhythm: Normal rate and regular rhythm. Pulses: Normal pulses. Heart sounds: Normal heart sounds. Pulmonary: Effort: Pulmonary effort is normal. Breath sounds: Normal breath sounds. Musculoskeletal: General: Normal range of motion. Skin: General: Skin is warm and dry. Capillary Refill: Capillary refill takes less than 2 seconds. Neurological: General: No focal deficit present. Mental Status: She is alert and oriented to person, place, and time. Psychiatric: Mood and Affect: Mood normal. Behavior: Behavior normal. Pulmonary Function: not obtained Laboratory DATA: Lab Results Component Value Date CO2 22 06/07/2023 Lab Results Component Value Date WBC 9.5 06/23/2023 HGB 11.6 (L) 06/23/2023 HCT 35.5 06/23/2023 MCV 80 06/23/2023 PLT 259 06/23/2023 No results found for: FERRITIN Chemistry Component Value Date/Time K 4.0 06/07/2023 1203 CL 105 06/07/2023 1203 CO2 22 06/07/2023 1203 BUN 11 06/07/2023 1203 CREATININE 0.50 06/07/2023 1203 GLU 82 06/07/2023 1203 GLU 92 06/07/2023 1149 Component Value Date/Time CALCIUM 8.3 (L) 06/07/2023 1203 ALKPHOS 90 06/07/2023 1203 AST 15 06/07/2023 1203 ALT 14 06/07/2023 1203 No results found for: TSH No results found. DATA: 08/30/2023 HSA T: AHI = 5.4 Min SpO2 = 92 % weight = 220 lb Face Mask: FFM DME: [facility] Imaging: no studies completed Impression: Arabella was seen today for sleeping problem. Diagnoses and all orders for this visit: KESHIA (obstructive sleep apnea) - PAP Mask and Supplies KESHIA with adherence to nocturnal ventilatory support on a nightly basis. Obesity Body mass index is 42.14 kg/m . Tobacco Dependency Plan: Discussed diagnosis, its evaluation, treatment and usual course. All questions answered. Educational material distributed. Orders Placed This Encounter Procedures PAP Mask and Supplies Scheduling Instructions: Length of Need: 12 months -Full Face Interface1/3mos -Full Face Cushion 1/mo -Nasal Cushion 2/mo, -Nasal Mask 1/3mos -Pillows 2/mo -Htd Tubing 1/3mos -Headgear 1/6mos -Chin Strap1/6mos -Non-Disposable Filter1/6mos -Disposable Filter2/mo -Water Chamber1/6mos -Std Tubing 1/3 mos -Add heat humidification with tubing Order Specific Question: Please specify Answer: PAP Mask and Supplies Order Specific Question: The face to face evaluation was performed on Answer: 10/22/2023 No orders of the defined types were placed in this encounter. She is to continue APAP 5-20 cm H20 on a nightly basis. New mask and supplies as needed. Received COVID vaccine this year Diet and exercise were discussed in detail. Any age appropriate or routine screening per PCP. Follow up in 1 year time. If her condition should change prior to this she is encouraged to give our office a call. EDUCATION: Driving precautions were reviewed. I advised the patient not to drive if sleepy, and to hand assembler for puller over if sleepiness occurs while driving. Above plan as discussed with the patient who acknowledged understanding and agreement. Health risks associated with untreated KESHIA were discussed (cardiopulmonary, cerebrovascular, and anesthesia/sedative-related). JEANINE Dorado [facility] Office: [phone] 2:39 PM on 10/22/2023 CC: JEANINE DAI APRN-CNP 10/22/23 1446 documented in this encounterCh[facility]07-22-2024 Instructions* Patient Instructions* JEANINE Dorado - 10/22/2023 2:30 PM EDT Images from the original note were not included. If you re looking for general health and wellness resources, please visit [email or web address]. documented in this encounterChillic[facility]06-25-2024 Miscellaneous Notes* Telephone Encounter - Darcy Downing LPN - 09/25/2023 10:53 AM EDT Left message for patient to call office to reschedule compliance appointment for 31-90 days. Set up on 09/21/23 with [facility]. documented in this encounterChillic[facility]06-25-2024 Telephone encounter Note* Telephone Encounter - Darcy Downing LPN - 09/25/2023 10:53 AM EDT Left message for patient to call office to reschedule compliance appointment for 31-90 days. Set up on 09/21/23 with [facility]. [facility] History of Present illness Narrative* Marcella Almeida RN - 09/21/2023 1:15 PM EDT Vaginal pressure, sharp shooting pains in vaginal area. Reports period like cramping and contractions. Denies LOF or vaginal bleeding. Possibly some urinary incontinence. +FM per patient. Instructed to notify physician if experiencing any of the following: intermittent low back pain abdominal or menstrual like cramping that is comes and goes or is constant vaginal pressure uterine contractions that are regular and timeable water breaks or feels a gush of fluid any vaginal bleeding that is heavier than a menstrual period decrease or absence of baby movement Advised to drink plenty of fluids, take all prescribed medications, and to keep all scheduled appointments documented in this encounterChillicothe Hospital06-21-2024 History of Present illness Narrative* Marcella Almeida RN - 09/21/2023 9:26 AM EDT LATE ENTRY Received voicemail from Arabella at 1500, returned call at 1600 after patient care completed in NST. Arabella requesting to be seen in [facility] for NST sooner than appointment on Sunday. Reports having a lot ofabdominal tightening and pain in back. (Appears to have been mario'd to 09/24) Recommended to eithercontact Dr Guadalupe today regarding pain and tightening or she could be evaluated in [place] for possiblelabor. That it would be beneficial for her to be evaluated in [facility] instead of an NST here in [facility] due to possiblity of labor and that she is a ro'd c/s on 09/30. She was understanding of recommendations. Appointment for nst/jared was ro'd back to original date of 09/27. documented in this encounterChillicothe [facility]06-21-2024 History of Present illness Narrative* Marcella Almeida RN - 09/21/2023 9:11 AM EDT LMOM for return call. Has cancelled last 2 NST appts. Following up on care. documented in this encounterChillic[facility]06-12-2024 History of Present illness Narrative* Lesley Alcantara RN - 09/12/2023 2:45 PM EDT Denies contractions. Patient states she feels occasional cramping but tolerable. Denies LOF or vaginal bleeding. +FM per patient. Instructed to notify physician if experiencing any of the following: intermittent low back pain abdominal or menstrual like cramping that is comes and goes or is constant vaginal pressure uterine contractions that are regular and timeable water breaks or feels a gush of fluid any vaginal bleeding that is heavier than a menstrual period decrease or absence of baby movement Advised to drink plenty of fluids, take all prescribed medications, and to keep all scheduled appointments documented in this encounterChillicothe Hospital06-12-2024 History of Present illness Narrative* Marcella Almeida RN - 09/12/2023 1:32 PM EDT Left message on machine for Maryann regarding NST order we received (4th degree, Zoloft use, hx 4w miscarriage). Requested clarification of order. documented in this encounterChillicothe Hospital06-04-2024 Miscellaneous Notes* Telephone Encounter - Lyn Rothman MD - 09/04/2023 12:44 PM EDT HST interpreted Show mild KESHIA by 3% criteria but not 4% Her insurance likely follows 4% per sleep lab, ordered auto CPAP as she is Please let her know Can send to DME and inquire about cost/coverage If not covered and too expensive would recommend PSG, comments to expedite to see if she can qualify for PAP Home sleep apnea test on 08/30/2023 (JOSE (3%)=5.4 events/hour; JOSE (4%)=1.2 events/hour; Misha SpO2=92.0%; Bzhjco=684.0 lbs; BMI=42.1 kg/m2) DIAGNOSIS: ? Obstructive Sleep Apnea (G47.33) COMMENTS: This home sleep apnea test demonstrates at least mild obstructive sleep apnea. Please note that home sleep testing may underestimate the JOSE due to lack of EEG monitoring. * Telephone Encounter - Yvonne Birmingham - 09/04/2023 12:44 PM EDT Spoke to pt, reviewed HST results in detail including 3 vs 4% and that sending to DME to determine if will cover PAP treatment. Reviewed that if covered will need to move up her March RV with [employer] for compliance and if denies to call and schedule allan with [employer] for possible PSG. My chart message sent for PAP order sent. Faxed all info to [facility] to request PAP setup. documented in this encounterK[facility] Centerasgoodasnew electronics GmbH06-04-2024 Telephone encounter Note* Telephone Encounter - Lyn Rothman MD - 09/04/2023 12:44 PM EDT HST interpreted Show mild KESHIA by 3% criteria but not 4% Her insurance likely follows 4% per sleep lab, ordered auto CPAP as she is Please let her know Can send to DME and inquire about cost/coverage If not covered and too expensive would recommend PSG, comments to expedite to see if she can qualify for PAP Home sleep apnea test on 08/30/2023 (JOSE (3%)=5.4 events/hour; JOSE (4%)=1.2 events/hour; Misha SpO2=92.0%; Hgmbma=005.0 lbs; BMI=42.1 kg/m2) DIAGNOSIS: ? Obstructive Sleep Apnea (G47.33) COMMENTS: This home sleep apnea test demonstrates at least mild obstructive sleep apnea. Please note that home sleep testing may underestimate the JOSE due to lack of EEG monitoring. [facility] [id number] Telephone encounter Note* Telephone Encounter - Yvonne Birmingham - 09/04/2023 12:44 PM EDT Spoke to pt, reviewed HST results in detail including 3 vs 4% and that sending to DME to determine if will cover PAP treatment. Reviewed that if covered will need to move up her March RV with [employer] for compliance and if denies to call and schedule allan with [employer] for possible PSG. My chart message sent for PAP order sent. Faxed all info to [facility] to request PAP setup. [facility] [employer] [id number] Miscellaneous Notes* Telephone Encounter - America Fraser - 08/29/2023 9:17 AM EDT 08/27 received HST order 08/28 Scheduled HST at BP 6/12, 7:30pm Confirmed via [employer]/[place] [employer]-added to waitlist Chatted auth for add on HST order and 08/27 [place] notes in epic *pt is currently * Telephone Encounter - Eva Polanco - 08/29/2023 9:17 AM EDT AUTH STARTED HSt/NPR Hector carranza#[id number] no carelon * Telephone Encounter - America Fraser - 08/29/2023 9:17 AM EDT Called patient to move up appt. Scheduled HST at PETER 08/29 Confirmed via [employer] Access/[place] [employer] Chatted auth for add on HST order and 08/27 [place] notes in epic *pt is currently documented in this encounterChillicothe Hospital05-29-2024 Telephone encounter Note* Telephone Encounter - America Fraser - 08/29/2023 9:17 AM EDT 08/27 received HST order 08/28 Scheduled HST at BP 6/12, 7:30pm Confirmed via [employer] Access/[place] [employer]-added to waitlist Chatted auth for add on HST order and 08/27 [place] notes in epic *pt is currently [employer] [id number] Telephone encounter Note* Telephone Encounter - Eva Polanco - 08/29/2023 9:17 AM EDT AUTH STARTED HSt/NPR Hector Avendano cr#[id number] no carelon [employer] [id number] Telephone encounter Note* Telephone Encounter - America Fraser - 08/29/2023 9:17 AM EDT Called patient to move up appt. Scheduled HST at 08/29 Confirmed via [employer] [employer]/[place] [employer] Chatted auth for add on HST order and 08/27 [place] notes in epic *pt is currently [employer]05-28-2024 History of Present illness Narrative* Kwaku Guadalupe MD - 08/28/2023 3:30 PM EDT Asynchronous E-Visit I have reviewed the patient entered E-Visit (Electronic Visit) request and the patient responses tothe questions contained in the condition-specific questionnaire submitted. The patient's symptom isappropriate for an E-Visit, and they consented to understanding the potential risks, benefits, and alternatives of E-Visit delivery of care. The patient agreed to the E-Visit [employer] terms and conditions including the cost of care for the E-Visit and desires to be treated via an E-Visit. The patient is an established patient, but is not seeking information exclusively about a problem treated during a [id number] encounter in the last seven days. E-Visit HPI Beauty Notedhart E-Visit Sinus 1 08/28/2023 3:33 PM EDT - Filed by Patient Which of the following have you been experiencing? Congested nose; Pain around the nose and face; Headache; Ear pain; Neck pain; Throat pain; Cough; Sneezing Have you had any of the following? Difficulty swallowing; Difficulty breathing Please enter a few details about your swallowing, breathing, or visual problems. My throat has beensore for almost 2 weeks now and it has been painful to swallow. My breathing issues are most likelyfrom being so congested. I have to blow my nose more than 10 times a day and the mucus is very thick and dark green. I also have a burning sensation inside my nose. How long have you been having these symptoms? For one to four weeks Do you have a fever? No, I do not have a fever Do you smoke? No Have you ever smoked? I smoked in the past, but quit Do you have any chronic illnesses, such as diabetes, heart disease, or lung disease, or any illnessthat would weaken your body's ability to fight infection? No Have you experienced similar problems in the past? Yes What treatments have worked in the past? What has not worked? OTC medicine, antiobiotics, salt rinse, vaporizer, medicated chest rub Is this illness similar to previous illnesses you have had? How is it the same? How is it different? As similar to any cold or sinus infection Have you recently been hospitalized? No What medications are you currently taking for these symptoms? Decongestants; Pain medicine; Nose spray Please enter the names of any medications you are taking, or any other treatments you are trying. Tylenol; Allergy nasal spray; Benadryl Are you ? I am Anything else you would like to add? Really I just need antiobiotics because this has been going onfor about 10 days now. My mucus is thick, and dark green, my lymphnodes are sore and swollen, so much so that it hurts to touch. My ears are also hurting really bad and it feels/sounds like I am underwater. E-Visit Assessment Arabella's self-reported symptoms are consistent with Acute non-recurrent frontal sinusitis [J01.10]. Additional pertinent history obtained from the patient after E-Visit submission: none E-Visit Plan: If any medications were prescribed, these were sent electronically to the pharmacy Arabella indicated on the E-Visit submission. Orders Placed or Reconciled This Encounter Medications CEPHalexin (KEFLEX) 500 mg capsule Sig: Take 1 capsule (500 mg total) by mouth 3 (three) times a day for 7 days. Dispense: 21 capsule Refill: 0 Arabella Hernandez was sent a [employer] message notifying them of the completed E-Visit. [...] responses): EVisit Evaluation and Management: 5-10 minutes ([id number]) Kwaku Guadalupe MD documented in this encounterKettering Health [facility] So[facility] CenterBenefitter Up Health [id number] History of Present illness Narrative* Lorie Johnson APRN-SCREEN PRINTING EQUIPMENT SETTER - 08/28/2023 3:00 PM EDT Chief Complaint: Arabella Hernandez is a 33 y.o. female present for initial visit regarding suspected KESHIA. HPI Patient is being referred by their primary care provider, patient is currently 34 weeks The patient reports she is having excessive daytime sleepiness, am fatigue, loud snoring, difficulty maintaining sleep, vivid dreams, nocturia x2-4 times a night, leg kicking, toss and turning and witnessed apnea. she denies having cataplexy. Denies having any parasomnias. Reports am ROWAN, and dry mouth/sore throat. Bedtime is 8-10PM and she reports her awaken time is 6-8 AM. Sleep Onset: 30 minutes. She wakes up spontaneously 5-6 times per night. Napping: none. She reports this has been going onfor a number of years now and is getting worse. Denies having family history of KESHIA. She has not fallen asleep while driving but has become exteremly relaxed and fatigued. She does drink 1-2 caffeinated beverages a day. she reports smoking 0.5-1 PPD x 11 years and quit 2 years ago, started at age 20. She denies any dyspnea, fevers, chills, chest pain or hemoptysis. 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 Reports having pets at home that donot sleep in her bed, 1 bunny. ETOH: none Marijuana: none Sleep Medications: Unisom nightly RLS: mild Exercise: walking EPWORTH SLEEPINESS SCALE Sitting and Reading: Slight Chance Watching TV: (!) Moderate Chance Sitting inactive in a public place (theater, meeting): Never As a passenger in a car for an hour without a break: Slight Chance Lying down in the afternoon to rest: (!) Moderate Chance Sitting and talking to someone: Never Sitting quietly after lunch (without alcohol): Never In a car, while stopped for a few minutes in traffic: Never Total: 6 OARRS REVIEWED Reviewed: no PMH PERTINENT HISTORY Her pertinent medical history includes Past Medical History: Diagnosis Date Anxiety Carpal tunnel syndrome Depression Enlarged ovary GERD (gastroesophageal reflux disease) Low back pain CURRENT MEDICATIONS Reviewed with patient. Current Outpatient Medications: escitalopram (LEXAPRO) 20 mg tablet, Take 1 tablet (20 mg total) by mouth in the morning., Disp: , Rfl: magnesium oxide (MAGOX) 400 mg tablet, Take 1 tablet by mouth in the morning and 1 tablet before bedtime, Disp: 30 tablet, Rfl: 2 omeprazole (PriLOSEC OTC) 20 mg EC tablet, Prilosec OTC 20 mg tablet,delayed release, Disp: , Rfl: omeprazole (PriLOSEC) 20 mg capsule, , Disp: , Rfl: PNV cmb#95-ferrous fumarate-FA 28 mg iron- 800 mcg tablet, , Disp: , Rfl: PLUS, CALCIUM CARB, 27 mg iron- 1 mg tablet, , Disp: , Rfl: Vitals: 08/28/23 1502 BP: 112/78 BP Site: Left Arm BP Postition: Sitting Pulse: 102 SpO2: 97% Weight: 106.4 kg (234 lb 9.6 oz) Height: 154.9 cm (5' 0.98 ) ALLERGIES Reviewed with patient. Patient has no known allergies. FAMILY HISTORY Family History Problem Relation Age of Onset Hypertension Mother Alcohol abuse Mother COPD Mother Breast cancer Paternal Aunt Lupus Paternal Aunt Breast cancer Maternal Grandmother Diabetes Maternal Grandfather Heart disease Paternal Grandfather SOCIAL HISTORY Social History Socioeconomic History Marital status: Legally Tobacco Use Smoking status: Former Types: Cigarettes Smokeless tobacco: Never Vaping Use Vaping status: Never Used Substance and Sexual Activity Alcohol use: Not Currently Comment: Occasional Drug use: No Sexual activity: Yes Partners: Male control/protection: None Social Determinants of Health Financial Resource Strain: Low Risk (02/06/2023) Overall Financial Resource Strain (CARDIA) Difficulty of Paying Living Expenses: Not hard at all Food Insecurity: No Food Insecurity (08/28/2023) Hunger Screening Food Insecurity - Worry: Never True Food Insecurity - Inability: Never True Transportation Needs: No Transportation Needs (02/06/2023) PRAPARE - Transportation Lack of Transportation (Medical): No Lack of Transportation (Non-Medical): No Housing Instability: Low Risk (02/06/2023) Housing Instability Housing Instability: No TRAVEL HISTORY Denies recent travel. ROS Review of Systems Constitutional: Positive for fatigue. Negative for fever and chills. HENT: Negative for postnasal drip and rhinorrhea. Respiratory: Negative for cough and shortness of breath. Cardiovascular: Negative for chest pain and palpitations. Psychiatric/Behavioral: Positive for sleep disturbance. PHYSICAL EXAM Vital signs BP 112/78 (BP Site: Left Arm, BP Postition: Sitting) Pulse 102 Ht 154.9 cm (5' 0.98 ) Wt 106.4 kg (234 lb 9.6 oz) Comment: LMP 12/29/2022 SpO2 97% BMI 44.35 kg/m Physical Exam Vitals and nursing note reviewed. Constitutional: Appearance: Normal appearance. She is obese. Cardiovascular: Rate and Rhythm: Normal rate and regular rhythm. Pulses: Normal pulses. Heart sounds: Normal heart sounds. Pulmonary: Effort: Pulmonary effort is normal. Breath sounds: Normal breath sounds. Musculoskeletal: General: Normal range of motion. Skin: General: Skin is warm and dry. Capillary Refill: Capillary refill takes less than 2 seconds. Neurological: General: No focal deficit present. Mental Status: She is alert and oriented to person, place, and time. Psychiatric: Mood and Affect: Mood normal. Behavior: Behavior normal. No data recorded , MALLAMPATI SCALE Patient's Mallampati score is Class III - soft palate, base of uvula. Assessment: Neurological alert and oriented Respiratory effort normal PFT not obtained PERTINENT LAB RESULTS Lab Results Component Value Date CO2 06/07/2023 IMAGING no studies completed [facility] with or without consult Result Date: 08/10/2023 OBSTETRICS REPORT (Signed Final 08/10/2023 17:13) PATIENT INFO: ID #: [id number] : [birth year] (33 yrs)(F) Name: ARABELLA BALL Visit Date: 08/10/2023 14:21EBERLY PERFORMED BY: Attending: Janeen Ospina MD Performed By: Dawn Moreno RDMS Referred By: Rao Gonzalez. Address: [address] [place] [address] [place] [address] Location: [facility] [place] SERVICE(S) PROVIDED: OB Follow-up, 1 fetus [id number] INDICATIONS: Obesity in , antepartum O99.210 Supervision of other high risk , O09.90 antepartum; zoloft --- VITAL SIGNS: Weight (lb): 207 Height: 5'1 BMI: 39.11 E VALUATION: Num Of Fetuses: 1 Heart Rate(bpm): 129 Cardiac Activity: Present & appears normal Presentation: Cephalic Placenta: Anterior, away from cervical os Amniotic Fluid JARED FV: Subjectively within normal limits Largest Pocket(cm) 6.24 BIOMETRY: BPD: 80.2 mm G.Age: 32w 1d 47 % OFD: 101.6 mm HC: 290.8 mm G.Age: 32w0d 16 % AC: 293.9 mm G.Age: 33w 3d 85 % FL: 59.5 mm G.Age: 31w 0d 14 % HUM: 54.6 mm G.Age: 31w 5d 46 % CER: 39.7 mm G.Age: 32w 1d 52 % LV: 4.1 mm CM: 6 mm TIB: 52.9 mm G.Age: 31w 2d 40 % CI: 78.9 % 70 - 86 FL/HC: 20.5 % 19.1 - 21.3 HC/AC: 0.99 0.96 - 1.17 FL/BPD: 74.2 % 71 - 87 FL/AC: 20.2 % 20 - 24 Est. FW: 1977 gm 4 lb 6 oz 54 % OB HISTORY: : 4 Term: 2 SAB: 1 Livin GESTATIONAL AGE: LMP: 32w 0d Date: 12/29/22 THA: 10/05/23 U/S Today: 32w 1d THA: 10/04/23 Best: 32w 0d Det. By: LMP (12/29/22) THA: 10/05/23 ANATOMY: Cranium: Appears normal Cavum: Appears normal Ventricles: Appear normal Cerebellum: Appears normal Posterior Fossa: Appears normal Heart: Appears normal (4 chamber & axis) Diaphragm: Appears normal Stomach: Appears normal, left sided Abdomen: Appears normal Cord Vessels: Appears normal (3 vessel cord) Kidneys: Appear normal Bladder: Appears normal ------- CERVIX UTERUS ADNEXA: Cervix Normalappearance by abdominal scan Uterus Gravid uterus Right Ovary Not visualized Left Ovary Not visualized Adnexa No adnexal masses identified --------- COMMENTS: 1. Ultrasound is not diagnostic for chromosomal abnormalities, will not detect all structural abnormalities, and is not diagnostic for genetic disorders even if multiple exams are performed during a given . Janeen Ospina MD Electronically Signed Final Report 08/10/2023 17:13 IMPRESSION: 1. Single intrauterine with expected interval growth from the previous ultrasound. 2. Amniotic fluid assessment (DVP) is normal. RECOMMENDATIONS: 1. Follow up growth ultrasounds to be done in referring OB office. 2. Subsequent follow up or other follow up as clinically determined by primary OB provider unless otherwise specified by M. 3. Results forwarded to ordering provider so they can follow up with the patient as necessary. No results found. IMPRESSION Arabella was seen today for sleep apnea. Diagnoses and all orders for this visit: Sleep-related breathing disorder - Home sleep study; Future BMI 40.0-44.9, adult ([facility]) Chronic fatigue - Ambulatory referral to Sleep Medicine Snoring - Ambulatory referral to Sleep Medicine Suspected obstructive sleep apnea syndrome A.M. Fatigue Chronic fatigue Snoring Obesity Body mass index is 44.35 kg/m . Asthma Anxiety and depression GERD Currently Former smoker PLAN Discussed diagnosis, its evaluation, treatment and usual course. All questions answered. Educational material distributed. Consideration of CO2 monitoring (if BMI > 35 and serum CO2 > 27: BMI Readings from Last 1 Encounters: 08/28/23 44.35 kg/m Lab Results Component Value Date CO2 22 06/07/2023 ] Orders Placed This Encounter Procedures Home sleep study Standing Status: Future Standing Expiration Date: 08/27/2024 Order Specific Question: Follow Up Answer: [facility] Sleep Medicine to read and follow patient. Order Specific Question: Reason for Study? Answer: G47.19 Excessive daytime sleepiness Order Specific Question: Reason for Study? Answer: G47.33 Obstructive sleep apnea Orders Placed or Reconciled This Encounter Medications omeprazole (PriLOSEC) 20 mg capsule PNV b#95-ferrous fumarate-FA 28 mg iron- 800 mcg tablet A home sleep study is ordered Diet and exercise were discussed in detail Received COVID/influenza vaccine Any age-appropriate routine screenings to be completed per PCP Follow up in 6 Months time. If her condition should change prior to this she is encouraged to give our office a call. EDUCATION: Pathophysiology of KESHIA was explained. Health risks associated with untreated EKSHIA were discussed (cardiopulmonary, cerebrovascular, and anesthesia/sedative-related). Risks associated with excessive daytime sleepiness, particularly while driving/operating machinery were discussed. The patient was instructed to avoid such activities if feeling sleepy, and to stop the activity if sleepiness occurs (hand assembler for puller over at the next safe opportunity if driving). KESHIA treatment options were discussed. CPAP is the most predictably effective treatment. If indicated and prescribed, CPAP must be used every night, all night for full benefits. It may take several weeks until fully accustomed to using the treatment, and before benefits (improved sleep quality and daytime altertness) are noticeable. Potential problems with CPAP were reviewed. Interim measures to reduce obstructive sleep apnea severity were recommended (avoidance of the supine position and elevation of the upper body and during sleep). CC: JEANINE DAI APRN-CNP [facility] Office: [phone] 3:48 PM on 08/28/2023 This note is dictated with the use of M*Modal.Please note that this dictation was completed with computer voice recognition software. Quite often unanticipated grammatical, syntax, homophones, and other interpretive errors are inadvertently transcribed by the computer software. Please disregard these errors. Please excuse any errors that have escaped final proofreading. JEANINE Dorado 08/28/23 1548 documented in this [facility]05-28-2024 Instructions* Patient Instructions* JEANINE Dorado - 08/28/2023 3:00 PM EDT Images from the original note were not included. If you re looking for general health and wellness resources, please visit [email or web address]. documented in this [facility]24 Miscellaneous Notes* Telephone Encounter - Tiara Mccullough CMA - 08/28/2023 7:51 AM EDT Called patient to see if they can move there appt to 1 pm today documented in this [facility]24 Telephone encounter Note* Telephone Encounter - Tiara Mccullough CMA - 08/28/2023 7:51 AM EDT Called patient to see if they can move there appt to 1 pm today [facility] Miscellaneous Notes* Telephone Encounter - Nina Bobo - 08/24/2023 8:44 AM EDT ----- Message from JEANINE Dai sent at 08/22/2023 12:58 PM EDT ----- Please offer her office follow-up if needed ----- Message ----- From: JEANINE Mcgraw Sent: 08/20/2023 10:31 AM EDT To: JEANINE Dai * Telephone Encounter - Nina Bobo - 08/24/2023 8:44 AM EDT LM on VM * Telephone Encounter - Ninadavid Mitchellsri - 08/24/2023 8:44 AM EDT LM on VM * Telephone Encounter - Ninadavid Bobo - 08/24/2023 8:44 AM EDT Sending letter documented in this [facility]Ch[facility]24 Telephone encounter Note* Telephone Encounter - Ninadavid Bobo - 08/24/2023 8:44 AM EDT ----- Message from JEANINE Dai sent at 08/22/2023 12:58 PM EDT ----- Please offer her office follow-up if needed ----- Message ----- From: JEANINE Mcgraw Sent: 08/20/2023 10:31 AM EDT To: JEANINE Dai [facility]05-24-[facility] Telephone encounter Note* Telephone Encounter - Nina Bobo - 08/24/2023 8:44 AM EDT LM on VM [facility] Telephone encounter Note* Telephone Encounter - Ninadavid Bobo - 08/24/2023 8:44 AM EDT LM on VM [facility] Telephone encounter Note* Telephone Encounter - [facility] Jeramie - 08/24/2023 8:44 AM EDT Sending letter [facility] History of Present illness Narrative* JEANINE Mcgraw - 08/20/2023 9:30 AM EDT Patient presented to [place] [facility] for test ordered during virtual visit. While at the [place] [facility], RICH Scales assess patient's lung sounds, Loyda called provider and reported that the patient's lungs were clear throughout. JEANINE Mcgraw APRN-CNP 08/20/23 1030 documented in this encounterChillic[facility]05-20-[facility]24 History of Present illness Narrative* JEANINE Mcgraw - 08/20/2023 8:30 AM EDT Video Visit via Real-time Synchronous Audiovisual Provider Location: [facility] [address] [place] [id number] Patient Location: Patient's home Video Visit Consent Statement: I discussed risks, benefits, and alternatives of a real-time synchronous audiovisual consultation with the patient (and any accompanying persons) including the risks that the patient's personal health details and medical records will be discussed over real-time, synchronous, interactive video/audio/telecommunication technology, the visit will not be recorded withoutthe express consent of both the provider and the patient, and that there are some limitations compared to [id number] evaluations. The patient consented to the presence of additional virtual and/or in-person participants. We elected to proceed. The patient's call-back number if disconnected is [phone] Subjective: Patient ID: Arabella Hernandez is a 33 y.o. female. Chief Complaint Patient presents with URI Patient reports that the symptoms started on , and worsened on Sunday. Patient reports thatshe had a possible strep exposure by a co-worker, the co- worker reports that they suspected she hadstrep and started her on antibiotics. Last episode of urination was approximately 1 hour ago. That she had a 1 time episode of emesis, that was Sunday night. Patient reports that this may be related to her acid reflux. URI This is a new problem. The current episode started in the past 7 days. The problem has been gradually worsening. There has been no fever. Associated symptoms include congestion, coughing, ear pain, headaches, neck pain, a plugged ear sensation, a sore throat, swollen glands and vomiting (x1 episode). Pertinent negatives include no abdominal pain, chest pain or diarrhea. She has tried acetaminophen (Last doses 0400) for the symptoms. The treatment provided no relief. Patient-Entered Hpi-Sore Throat 08/20/2023 8:01 AM EDT - Filed by Patient Your sore throat Is new When did you first notice your sore throat? In the past 7 days Since you first noticed your sore throat, how has it changed? Gradually worsening On which side of your throat is the pain worst? Left How high has your fever been? No fever (less than 100.4 F) How long has your fever lasted? How would you describe your current level of pain? Moderate On a scale of 0 to 10 (10 being the worst), how painful is your sore throat? 8 Are you experiencing any of the following symptoms with your sore throat? Abdominal pain No Congestion Yes Cough Yes Diarrhea No Drooling No Ear discharge No Ear pain Yes Headaches Yes Hoarse voice Yes Neck pain Yes Plugged ear sensation Yes Raspy noises when breathing in Yes Shortness of breath Yes Swollen glands Yes Trouble swallowing Yes Vomiting Yes Have you had recent exposure to either of the following? Strep throat Yes [place] The following portions of the patient's history were reviewed and updated as appropriate: allergies, current medications, past family history, past medical history, past social history, past surgicalhistory and problem list. Review of Systems Constitutional: Negative for chills and fever. HENT: Positive for congestion, ear pain, sore throat and trouble swallowing (due to the sore throat.). Negative for drooling and ear discharge. Respiratory: Positive for cough, shortness of breath and stridor. Cardiovascular: Negative for chest pain. Gastrointestinal: Positive for vomiting (x1 episode). Negative for abdominal pain and diarrhea. Musculoskeletal: Positive for neck pain. Neurological: Positive for headaches. Psychiatric/Behavioral: Negative for sleep disturbance. Past Medical History: Diagnosis Date Anxiety Carpal tunnel syndrome Depression Enlarged ovary GERD (gastroesophageal reflux disease) Low back pain Past Surgical History: Procedure Laterality Date EXPLORATORY LAPAROTOMY FL EPIDURAL LUMBAR STEROID INJ RO INJECTION MEDIAL BRANCH NERVE BLOCK Bilateral L 4/5, 5/1 Bilateral 10/31/2019 Performed by Mina Silva MD at [facility] INJECTION MEDIAL BRANCH NERVE BLOCK Bilateral L 4/5,5/1 Bilateral 09/19/2019 Performed by Mina Silva MD at [facility] INJECTION SACROILIAC NERVE Bilateral 05/02/2019 Performed by Mina Silva MD at [facility] WISDOM TOOTH EXTRACTION 09/2011 Current Outpatient Medications on File Prior to Visit Medication Sig Dispense Refill escitalopram (LEXAPRO) 20 mg tablet Take 1 tablet (20 mg total) by mouth in the morning. magnesium oxide (MAGOX) 400 mg tablet Take 1 tablet by mouth in the morning and 1 tablet before bedtime 30 tablet 2 omeprazole (PriLOSEC OTC) 20 mg EC tablet Prilosec OTC 20 mg tablet,delayed release PLUS, CALCIUM CARB, 27 mg iron- 1 mg tablet No current facility-administered medications on file prior to visit. Social History Tobacco Use Smoking status: Former Types: Cigarettes Smokeless tobacco: Never Vaping Use Vaping status: Never Used Substance Use Topics Alcohol use: Not Currently Comment: Occasional Drug use: No No Known Allergies The patient is not currently . Patient's last menstrual period was 12/29/2022. Currently . Objective: Physical Exam Constitutional: General: She is not in acute distress. Appearance: Normal appearance. She is not ill-appearing. Comments: Patient is able and willing to perform physical assessment through video visit and with the guidance of the provider. HENT: Head: Normocephalic. Jaw: There is normal jaw occlusion. Right Ear: External ear normal. No tenderness (with movement of pinna). No mastoid tenderness. Left Ear: External ear normal. No tenderness (with movement of pinna). No mastoid tenderness. Ears: Comments: Able to hear well. Nose: No congestion. Right Sinus: Maxillary sinus tenderness and frontal sinus tenderness present. Left Sinus: Maxillary sinus tenderness and frontal sinus tenderness present. Mouth/Throat: Lips: [place]. No lesions. Mouth: Mucous membranes are moist. No oral lesions. Tongue: No lesions. Palate: No lesions. Pharynx: Uvula midline. Oropharyngeal exudate (postnasal drip) and posterior oropharyngeal erythema(mild) present. No uvula swelling. Comments: Normal phonation. Cardiovascular: Rate and Rhythm: Tachycardia present. Comments: Patient counted heart rate = 112 beats per minute. Pulmonary: Effort: Pulmonary effort is normal. No accessory muscle usage or respiratory distress. Comments: Moist forced cough. No audible wheezing. No wheezing with forced exhalation. Speaking in full complete sentences. Lymphadenopathy: Head: Right side of head: Tonsillar (and tender) adenopathy present. Left side of head: Tonsillar (and tender) adenopathy present. Skin: Coloration: Skin is not pale. Neurological: Mental Status: She is alert and oriented to person, place, and time. Psychiatric: Mood and Affect: Mood normal. Speech: Speech normal. Behavior: Behavior normal. Assessment/Plan: Patient agreeable to POCT testing for strep and COVID, patient reports that the [place] urgent care is the closest location for her. Visit scheduled at a time that patient provided. Discussed with patient during the virtual visit, if she is positive for strep amoxicillin will be called into the pharmacy. Discussed with patient during the virtual visit that if the strep is negative, she is to continue symptom management. Discussed with patient that if she is positive for COVID,she will need to reach out to her OBGYN for discussion about starting Paxlovid. The Muse message was sent to patient regarding negative testing. Encouraged patient to continue symptom management with Tylenol and fluids. Note was provided to return to work tomorrow. 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 Diagnoses and all orders for this visit: Sore throat - POCT rapid strep A - POCT Influenza A/Influenza B/SARS-COV-2 Veritor No orders of the defined types were placed in this encounter. Total time spent was 15 minutes: Obtaining and/or reviewing separately obtained history Performing a medically appropriate examination and/or evaluation Counseling and educating the patient/family/caregiver Ordering medications, tests, or procedures Documenting clinical information in the electronic or other health record Patient Instructions [facility]. Rest your throat by not talking too much. Wash your hands often. Gargle with a mixture of 1 teaspoon (5 grams) salt in 8 ounces (240 mL) of warm water 2 to 3 times a day. Drink plenty of fluids. Suck on hard candy or cough drops. Tylenol as needed for pain/fever per package instructions. Do not take tylenol if you have liver disease. Do not take ibuprofen due to current . Use a cool mist humidifier to help you breathe easier. Discard toothbrush 24 hours after starting antibiotic and after the last antibiotic dose/Take probiotics or eat yogurt to prevent diarrhea induced from taking antibiotics. Discard toothbrush when symptoms have resolved. If you have high blood pressure: only use Coricidin HBP for symptoms. Avoiding decongestants (such as pseudoephedrine and phenylephrine) and extended release cold medication, if unclear, speak with the pharmacist. Do not share utensils and drinking glasses with someone who has a sore throat. Wash these objects with hot, soapy water. Do not share your foods or drinks with others while you are sick. You might infect them. Discussed that follow up care with PCP is usually required after a visit to the urgent care. Contact your primary care provider to schedule a follow up. If you do not have a PCP, call [phone] to schedule a new patient appointment. If symptoms are not improving, worsening (difficulty swallowing, inability to swallow liquids/solids, change in voice or drooling)or concerning symptoms of illness develop despite treatment, report to the ER for further evaluation. Counseling The patient was counseled regarding prognosis, risks and benefits of treatment options, impressions, instructions for management, importance of compliance with treatment, risk factor reductions and patient and family education If you develop any new, worsening, or concerning symptoms of illness, and are unable to follow up with a private physician, please call here for advice or to the nearest Emergency Department for further care immediately. JEANINE Mcgraw 08/20/23 1031 * JEANINE Mcgraw - 08/20/2023 8:30 AM EDT Negative strep. Negative influenza and negative COVID. JEANINE Mcgraw 08/20/23 1018 documented in this encounterCh[facility]05-20-2024 Instructions* Patient Instructions* JEANINE Mcgraw - 08/20/2023 8:30 AM EDT Thank you for visiting [facility]. Rest your throat by not talking too much. Wash your hands often. Gargle with a mixture of 1 teaspoon (5 grams) salt in 8 ounces (240 mL) of warm water 2 to 3 times a day. Drink plenty of fluids. Suck on hard candy or cough drops. Tylenol as needed for pain/fever per package instructions. Do not take tylenol if you have liver disease. Do not take ibuprofen due to current . Use a cool mist humidifier to help you breathe easier. Discard toothbrush 24 hours after starting antibiotic and after the last antibiotic dose/Take probiotics or eat yogurt to prevent diarrhea induced from taking antibiotics. Discard toothbrush when symptoms have resolved. If you have high blood pressure: only use Coricidin HBP for symptoms. Avoiding decongestants (such as pseudoephedrine and phenylephrine) and extended release cold medication, if unclear, speak with the pharmacist. Do not share utensils and drinking glasses with someone who has a sore throat. Wash these objects with hot, soapy water. Do not share your foods or drinks with others while you are sick. You might infect them. Discussed that follow up care with PCP is usually required after a visit to the urgent care. Contact your primary care provider to schedule a follow up. If you do not have a PCP, call [phone] to schedule a new patient appointment. If symptoms are not improving, worsening (difficulty swallowing, inability to swallow liquids/solids, change in voice or drooling)or concerning symptoms of illness develop despite treatment, report to the ER for further evaluation. documented in this encounterKettering Health [facility] CenterA[facility] [phone] History of Present illness Narrative* Yann Cao, OD - 05/23/2023 3:00 PM EST Mariradha Trinidad Mary had concerns including Eye Exam. 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 Patient is [...] has a past surgical history that includes [place] tooth extraction (09/2011); h-fl epidural lumbar steroid [...] Normal Refraction Manifest Refraction (Auto) Sphere Cylinder [place] Right -0.25 -0.25 159 Left [place] -0.50 052 Final Rx Sphere Cylinder [place] Dist [place] Right -0.25 Sphere 20/25 Left [...] both accurate and complete. documented in this encounterChillic[facility]02-12-2024 History of Present illness Narrative* Roman Sears MD - 05/14/2023 11:00 AM EST [facility] Consult Note Reason For [...] Breast cancer -maternal grandmother age not sure [place] - paternal grandfather Lupus father sister FOB [...] 10/31/2019 Performed by Mina Silva MD at [facility] INJECTION MEDIAL BRANCH NERVE BLOCK Bilateral L 4/5,5/1 Bilateral 09/19/2019 Performed by Mina Silva MD at [facility] INJECTION SACROILIAC NERVE Bilateral 05/02/2019 Performed by Mina Silva MD at [facility] WISDOM TOOTH EXTRACTION 09/2011 Allergies: No Known [...] total) by mouth in the morning and 1tablet (400 mg total) before bedtime. Dispense: 30 [...] include maternal weight changes and premature . Moststudies show that SSRIs aren't associated with defects. [...] month after . with escitalopram reviewed the field care coordinator should be notified. We discussed that data [...] total) by mouth in the morning and 1tablet (400 mg total) before bedtime. Dispense: 30 tablet; Refill: 1 Supportive measures headaches in reviewed 7. Obesity Obesity is a risk factor for adverse outcomes in . These possible complications including increased risks for miscarriage in the first trimester, congenital anomalies, hypertensive disordersof including preeclampsia, diabetes mellitus, demise, and delivery [...] for VTE prevention (LMWH) during delivery hospitalization. [employer] should be notified about antidepressant use during the Plan reviewed with patient. She vocalized understanding all questions answered. The patient is to continue with routine care in your office Thank you for allowing me to participate in her care. Please contact me if you have any concerns. Roman Sears MD, FACOG (she/hers) Maternal- Medicine [facility] [address] [facility] Center [address] [place] [address] This document was created with [employer] technology. Though I make every effort to review the dictation as it is transcribed, on occasion the spoken word can be misinterpreted by the technology leading to inappropriate words, phrases, or sentences. This note is addressed to the requesting provider as a consultation for clinical guidance. Specificmedical abbreviations are occasionally used and those are generally approved by the [place]?Board of?Obstetrics and?Gynecology?as well as?Rodrigue abel abbreviations. The above plan of care was based solely on the diagnoses for which a consultation was requested. ?More frequent testing may be indicated based on her other medical/obstetrical conditions. The management of other or medical conditions is beyond the scope of requested consultation and will c ontinue to be followed by the primary dam attendant or primary care provider. Note to patient: The Century Cures Act makes medical notes like these available to patients inthe interest of transparency. However, be advised this is a medical document. It is intended as peer to peer communication. It is written in medical language and may contain abbreviations or verbiagethat are unfamiliar. It may appear blunt or direct. Medical documents are intended to carry relevant information, facts as evident, and the clinical opinion of the practitioner. * Gale Austin RN - 05/14/2023 11:00 AM EST Headache/epigastric pain/blurry vision/swelling? Headaches severe, blurred vision on left Cramping/contractions? no Abnormal vaginal discharge? no Spotting/vaginal bleeding? no Loss of fluid like your water may have broken? no Cats in the home? no Do you change the litter box? Flu vaccine? yes Genetic testing done this here or other office? yes Have you been seen here at [facility] in a previous ? no Recent ER visits or hospitalizations? no Bring blood sugar log or meter with you today? (Please bring them with you for every visit at [facility]) n/a Traveled outside the country in the past 6 month no Any concerns that you would like me to mention to the provider today? no [facility] Diagnosis Postop check Follow-up examination, following unspecified surgery Incisional hernia, without obstruction or gangrene documented in this encounter [facility]* Diagnosis Blurry vision, bilateral- Primary Other specified visual disturbances Chronic migraine without aura without status migrainosus, not intractable Mixed anxiety and depressive disorder Dysthymic disorder Dizziness Dizziness and giddiness [facility]* Diagnosis Onychocryptosis- Primary Ingrowing nail Pain in right foot Pain in soft tissues of limb Left foot pain Pain in soft tissues of limb [facility]* Diagnosis Anxiety disorder, unspecified type- Primary Recurrent major depressive disorder, in partial remission ([facility]) [facility]* Diagnosis Pre-op evaluation- Primary KESHIA (obstructive sleep apnea) Obstructive sleep apnea (adult) (pediatric) Class 3 severe obesity due to excess calories with serious comorbidity and body mass index (BMI) of40.0 to 44.9 in adult ([facility]) Mixed anxiety and depressive disorder Dysthymic disorder Carpal tunnel syndrome of right wrist Near syncope Elevated LFTs Other abnormal blood chemistry [facility]* Diagnosis Anxiety disorder, unspecified type- Primary Recurrent major depressive disorder, in partial remission ([facility]) [facility]* Diagnosis Well woman exam with routine gynecological exam Routine gynecological examination control counseling documented in this encounter [facility]* Diagnosis KESHIA (obstructive sleep apnea)- Primary Obstructive sleep apnea (adult) (pediatric) Mixed anxiety and depressive disorder Dysthymic disorder [facility]* Diagnosis Obesity affecting in second trimester, unspecified obesity type Obesity affecting in second trimester, unspecified obesity type- Primary [facility]* Diagnosis Encounter for laboratory test- Primary Laboratory examination, unspecified [facility]* Diagnosis Sore throat- Primary Acute pharyngitis [facility]* Diagnosis Obesity affecting in second trimester, unspecified obesity type [facility]* Diagnosis Acute non-recurrent frontal sinusitis- Primary [facility]* Diagnosis Sleep-related breathing disorder- Primary BMI 40.0-44.9, adult ([facility]) Chronic fatigue Other malaise and fatigue Snoring Other dyspnea and respiratory abnormality [facility]* Diagnosis Sleep-related breathing disorder [facility]* Diagnosis 19 weeks gestation of - Primary Mixed anxiety and depressive disorder Dysthymic disorder Depression affecting Anxiety during Hx of maternal laceration, 4th degree, currently with other poor obstetric history headache in second trimester Obesity affecting in second trimester, unspecified obesity type [facility]* Diagnosis Obesity affecting in second trimester, unspecified obesity type [facility]* Diagnosis Myopia of both eyes- Primary Regular astigmatism of left eye [facility]* Diagnosis KESHIA (obstructive sleep apnea)- Primary Obstructive sleep apnea (adult) (pediatric) CPAP use counseling BMI 40.0-44.9, adult ([facility]) [facility]* Diagnosis Wellness examination- Primary Other fatigue Iron deficiency anemia, unspecified iron deficiency anemia type KESHIA (obstructive sleep apnea) Obstructive sleep apnea (adult) (pediatric) Gastroesophageal reflux disease, unspecified whether esophagitis present [facility]* Diagnosis Mixed stress and urge urinary incontinence- Primary Mixed incontinence urge and stress (male)(female) History of fourth degree perineal laceration Incontinence of feces with fecal urgency Perineal pain Urinary frequency [facility]* Diagnosis Acute non-recurrent frontal sinusitis- Primary [facility]* Diagnosis Incarcerated ventral hernia- Primary Unspecified ventral hernia with obstruction [facility]* Diagnosis Onychocryptosis- Primary Ingrowing nail Pain in right foot Pain in soft tissues of limb Left foot pain Pain in soft tissues of limb [facility]* Diagnosis Bilateral carpal tunnel syndrome- Primary Carpal tunnel syndrome Hand pain, right Pain in soft tissues of limb Hand pain, left Pain in soft tissues of limb [facility] Diagnosis Incarcerated ventral hernia- Primary Unspecified ventral hernia with obstruction [facility]* Diagnosis Dizziness- Primary Dizziness and giddiness Chronic migraine without aura without status migrainosus, not intractable [facility]* Diagnosis Hepatic steatosis- Primary Other chronic nonalcoholic liver disease documented [facility]* Diagnosis Impaired fasting glucose- Primary documented [facility]* Diagnosis Myopia of both eyes with astigmatism [facility]* Diagnosis Hepatic steatosis Other chronic nonalcoholic liver disease documented [facility]* Diagnosis Postoperative pain- Primary Other acute postoperative pain [facility]* Diagnosis REHMAN (nonalcoholic steatohepatitis)- Primary Other chronic nonalcoholic liver disease [facility]* Diagnosis Postoperative pain- Primary Other acute postoperative pain Carpal tunnel syndrome of right wrist [facility]* Diagnosis Anxiety disorder, unspecified type- Primary Recurrent major depressive disorder, in partial remission (CMS-HCC) [facility]* Diagnosis RUQ pain- Primary Abdominal pain, right upper quadrant Metabolic dysfunction-associated steatotic liver disease (MASLD) Abnormal liver enzymes [facility]* Diagnosis Anxiety disorder, unspecified type Recurrent major depressive disorder, in partial remission (CMS-HCC) [facility]* Diagnosis Carpal tunnel syndrome of right wrist- Primary [facility]* Diagnosis Ataxia- Primary Lack of coordination Dizziness Dizziness and giddiness Chronic migraine without aura without status migrainosus, not intractable Tension headache Vitamin D deficiency Hypothyroidism, unspecified type documented [facility]* Diagnosis Carpal tunnel syndrome of right wrist- Primary Postoperative visit Cubital tunnel syndrome on right [facility]* Diagnosis Anxiety disorder, unspecified type- Primary Recurrent major depressive disorder, in partial remission [facility]* Diagnosis Encounter for screening mammogram for malignant neoplasm of breast- Primary Breast cancer screening, high risk patient Screening mammogram for high-risk patient [facility] Diagnosis Family history of breast cancer- Primary Family history of malignant neoplasm of breast [facility]* Diagnosis KESHIA (obstructive sleep apnea)- Primary Obstructive sleep apnea (adult) (pediatric) CPAP use counseling BMI 37.0-37.9, adult [facility]* Diagnosis Abnormal liver enzymes- Primary Hepatic steatosis Other chronic nonalcoholic liver disease [facility]* Diagnosis KESHIA (obstructive sleep apnea) Obstructive sleep apnea (adult) (pediatric) documented [facility]* Diagnosis Strep pharyngitis- Primary Sore throat Acute pharyngitis Encounter for screening for COVID-19 documented [facility]* Diagnosis Missed menses- Primary Closed fracture of left ankle, initial encounter [facility]* Diagnosis KESHIA (obstructive sleep apnea)- Primary Obstructive sleep apnea (adult) (pediatric) documented [facility]* Diagnosis Sleep-related breathing disorder- Primary [facility]* Diagnosis Closed fracture of left ankle, initial encounter- Primary [facility]* Diagnosis Onychocryptosis- Primary Ingrowing nail Left foot pain Pain in soft tissues of limb documented [facility]* Diagnosis Closed fracture of left ankle with routine healing- Primary Closed fracture of left ankle, initial encounter Closed fracture of left ankle, initial encounter documented [facility]* Diagnosis Onychocryptosis- Primary Ingrowing nail Left foot pain Pain in soft tissues of limb Closed fracture of left ankle, initial encounter [facility]ructionsNot on filedocumented in this encounter [facility] on filedocumented in this encounter [facility]ructionsNot on filedocumented in this encounter [facility]ructionsNot on filedocumented in this encounter [facility]ructionsNot on filedocumented in this encounter [facility]InstructionsNot on filedocumented in this encounter [facility]InstructionsNot on filedocumented in this encounter [facility]InstructionsNot on filedocumented in this encounter [facility]InstructionsNot on filedocumented in this encounter [facility] SystemInstructionsNot on filedocumented in this encounter [facility] SystemInstructionsNot on filedocumented in this encounter [facility] SystemInstructionsNot on filedocumented in this encounter [facility]* Attachments The following attachments cannot be sent through Care Everywhere. * Preeclampsia ([place]) documented [facility]* Attachments The following attachments cannot be sent through Care Everywhere. * Acid Reflux and GERD in Adults Discharge Instructions ([place]ien) documented in this encounterPro[facility] SystemInstructionsNot on file documented in this encounterProMedica Health SystemInstructionsNot on file documented in this encounterProMed[facility] Health SystemInstructionsNot on file documented in this encounterProMedica Health SystemInstructionsNot on file documented in this encounterProMedica Health SystemInstructionsNot on file documented in this encounterProMedica Health SystemInstructionsNot on file documented in this encounterProMedica Health SystemInstructionsNot on file documented in this encounterProMedica Health SystemInstructionsNot on file documented in this encounterProMedica Health SystemInstructionsNot on file documented in this encounterProMedica Health SystemInstructionsNot on file documented in this encounterProMedica Health SystemInstructionsNot on file documented in this encounterProMedica Health SystemReason for visit Narrative* Misc (Routine) - ClosedSpecialtyDiagnoses / ProceduresReferred By Contact Referred To Contact Diagnoses KESHIA (obstructive sleep apnea) Procedures Home sleep study Lorie Johnson APRN-CNP [address] [place] [address] Phone: tel: fax: Referral IDStatusReasonStart DateExpiration DateVisits RequestedVisits [id number]/ [facility] Summary Purpose Family History No [...] Directives Records FoundNo Advanced Directives Records Found Reason for Referral SpecialtyDiagnoses / ProceduresReferred By ContactReferred To ContactMaternal and Medicine Diagnoses Obesity affecting in second trimester, unspecified obesity type Procedures nonstress test - Maternal Medicine Rao Guadalupe, DO [address] [facility], [place] [address] [facility]aternal [facility] [address] [place] [address] Referral IDStatusReasonStart DateExpiration DateVisits RequestedVisits [id number] / ProceduresReferred By ContactReferred To Contact Diagnoses Sleep-related breathing disorder Procedures Home sleep study Lorie Johnson, GLASS TECHNOLOGIST-SCREEN PRINTING EQUIPMENT SETTER [address] [address] Referral IDStatusReasonStart DateExpiration DateVisits RequestedVisits [id number] Review/ Additional Source Comments INFORMATION SOURCE (unrecogn ized section and content) DATE CREATED AUTHOR 05/23/2021 [facility] DATE CREATED AUTHOR AUTHOR'S ORGANIZ ATION 11/12/2021 [facility] DATE CREATED AUTHOR AUTHOR'S ORGANIZ ATION 08/12/2022 [facility] DATE CREATED AUTHOR AUTHOR'S ORGANIZ ATION 05/14/2024 [facility] DATE CREATED AUTHOR AUTHOR'S ORGANIZ ATION 11/13/2024 [facility] DATE CREATED AUTHOR AUTHOR'S ORGANIZ ATION 01/06/2025 [facility] DATE CREATED AUTHOR AUTHOR'S ORGANIZ ATION 01/14/2025 [facility] DATE CREATED AUTHOR AUTHOR'S ORGANIZ ATION 01/19/2025 [facility] Care Teams (unrecognized sec tion and content) Team MemberRelationshipSpecialtyStart DateEnd Date Tay Granados MD [address] [place] [address] PCP - [facility]09/13/22 Elias Tafoya DO [address] [place] [address] [facility]09/30/22Te MemberRelationshipSpecialtyStart DateEnd Date Tay Granados MD [address], [place] [address] PCP - [facility]09/13/22 Elias Tafoya DO [address] [place] [address] [facility]09/30/22Te MemberRelationshipSpecialtyStart DateEnd Date Tay Granados MD [address], [place] [address] [facility]09/13/22Te MemberRelationshipSpecialtyStart DateEnd Date Tay Granados MD [address], [place] [address] PCP - [facility]09/13/22Team MemberRelationshipSpecialtyStart DateEnd Date Montrell Timmons, GLASS TECHNOLOGIST-[facility] [address] [place] [address] PCP - General06/10/23Team MemberRelationshipSpecialtyStart DateEnd Date Montrell Timmons, GLASS TECHNOLOGIST-SCREEN PRINTING EQUIPMENT SETTER [address] [place] [address] PCP - General06/10/23Team MemberRelationshipSpecialtyStart DateEnd Date Montrell Timmons, GLASS TECHNOLOGIST-SCREEN PRINTING EQUIPMENT SETTER [address] [place] [address] PCP - General06/10/23Team MemberRelationshipSpecialtyStart DateEnd Date Montrell Timmons Lina, GLASS TECHNOLOGIST-SCREEN PRINTING EQUIPMENT SETTER [address] [place] [address] PCP - General06/10/23Team MemberRelationshipSpecialtyStart DateEnd Date Montrell Timmons, GLASS TECHNOLOGIST-SCREEN PRINTING EQUIPMENT SETTER [address] [place] [address] PCP - General06/10/23Team MemberRelationshipSpecialtyStart DateEnd Date Tay Granados MD [address] [place] [address] PCP - [facility]09/13/22Team MemberRelationshipSpecialtyStart DateEnd Date Tay Granados MD [address] [place] [address] PCP [facility]09/13/22Team MemberRelationshipSpecialtyStart DateEnd Date Iain Montrell Woods, GLASS TECHNOLOGIST-[facility] [address] [place] [address] [facility]06/10/23Team MemberRelationshipSpecialtyStart DateEnd Date Montrell Timmons, [facility] [address] [place] [address] [facility]06/10/23Team MemberRelationshipSpecialtyStart DateEnd Date Montrell Timmons, GLASS TECHNOLOGIST-[facility] [address] [place] [address] [facility]06/10/23Team MemberRelationshipSpecialtyStart DateEnd Date Iain Montrell Woods, GLASS TECHNOLOGIST-[facility] [address] [place] [address] [facility]06/10/23Team MemberRelationshipSpecialtyStart DateEnd Date Montrell Timmons, GLASS TECHNOLOGIST-[facility] [address] [place] [address] [facility]06/10/23Team MemberRelationshipSpecialtyStart DateEnd Date Montrell Timmons, GLASS TECHNOLOGIST-[facility] [address] [place] [address] PCP - General06/10/23Team MemberRelationshipSpecialtyStart DateEnd Date Iain Montrell Woods, GLASS TECHNOLOGIST-SCREEN PRINTING EQUIPMENT SETTER [address] [place] [address] PCP - General06/10/23Team MemberRelationshipSpecialtyStart DateEnd Date Iain Montrell Woods, GLASS TECHNOLOGIST-SCREEN PRINTING EQUIPMENT SETTER [address] [place] [address] PCP - General06/10/23Team MemberRelationshipSpecialtyStart DateEnd Date Iain Montrell Woods, GLASS TECHNOLOGIST-SCREEN PRINTING EQUIPMENT SETTER [address] [place] [address] PCP - General06/10/23Team MemberRelationshipSpecialtyStart DateEnd Date Iain Montrell Woods, GLASS TECHNOLOGIST-SCREEN PRINTING EQUIPMENT SETTER [address] [place] [address] PCP - General06/10/23Team MemberRelationshipSpecialtyStart DateEnd Date Elias Tafoya DO [address] [place] [address] PCP - GeneralOccupational Medicine04/20/23Team MemberRelationshipSpecialtyStart DateEnd Date Elias Tafoya DO [address] [place] [address] PCP - GeneralOccupational Medicine04/20/23Team MemberRelationshipSpecialtyStart DateEnd Date Iain Montrell Woods, GLASS TECHNOLOGIST-SCREEN PRINTING EQUIPMENT SETTER [address] [place] [address] PCP - General06/10/23Team MemberRelationshipSpecialtyStart DateEnd Date Elias Tafoya DO [address] [place] [address] PCP - GeneralOccupational Medicine04/20/23Team MemberRelationshipSpecialtyStart DateEnd Date Montrell Timmons, GLASS TECHNOLOGIST-SCREEN PRINTING EQUIPMENT SETTER [address] [place] [address] PCP - General06/10/23Team MemberRelationshipSpecialtyStart DateEnd Date Montrell Timmons, GLASS TECHNOLOGIST-SCREEN PRINTING EQUIPMENT SETTER [address] [place] [address] PCP - General06/10/23Team MemberRelationshipSpecialtyStart DateEnd Date Montrell Timmons, GLASS TECHNOLOGIST-SCREEN PRINTING EQUIPMENT SETTER [address] [place] [address] PCP - General06/10/23Team MemberRelationshipSpecialtyStart DateEnd Date Montrell Timmons, GLASS TECHNOLOGIST-SCREEN PRINTING EQUIPMENT SETTER [address] [place] [address] PCP - General06/10/23Team MemberRelationshipSpecialtyStart DateEnd Date Tay Granados MD [address] [place] [address] PCP - GeneralFamily Medicine09/13/22Team MemberRelationshipSpecialtyStart DateEnd Date Montrell Timmons, GLASS TECHNOLOGIST-SCREEN PRINTING EQUIPMENT SETTER [address] [place] [address] PCP - General06/10/23Team MemberRelationshipSpecialtyStart DateEnd Date Montrell Timmons Lina, [facility] [address] [place] [address] PCP - General06/10/23Team MemberRelationshipSpecialtyStart DateEnd Date Montrell Timmons Lina, [facility] [address] [place] [address] PCP - [facility]06/10/23Team MemberRelationshipSpecialtyStart DateEnd Date Edel Timmonsvannessa Woods, [facility] [address] [place] [address] PCP - [facility]06/10/23Team MemberRelationshipSpecialtyStart DateEnd Date Edel Timmonsvannessa Woods, [facility] [address] [place] [address] PCP - [facility]06/10/23Team MemberRelationshipSpecialtyStart DateEnd Date Edel Timmonsvannessa Woods, [facility] [address] [place] [address] PCP [facility]06/10/23Team MemberRelationshipSpecialtyStart DateEnd Date Edel Timmonsvannessa Woods, [facility] [address] [place] [address] PCP - [facility]06/10/23Team MemberRelationshipSpecialtyStart DateEnd Date Edel Timmonsvannessa Woods, [facility] [address] [place] [address] [facility] [facility]06/10/23Team MemberRelationshipSpecialtyStart DateEnd Date Montrell Timmons, [facility] [address] [place] [address] PCP - [facility]06/10/23Team MemberRelationshipSpecialtyStart DateEnd Date Montrell Timmons, [facility] [address] [place] [address] [facility]06/10/23Team MemberRelationshipSpecialtyStart DateEnd Date Edel Timmonsvannessa Woods, [facility] [address] [place] [address] [facility]06/10/23Team MemberRelationshipSpecialtyStart DateEnd Date Edel Timmonsvannessa Woods, [facility]ISTLAWR[facility] [address] [place] [address] [facility]06/10/23Team MemberRelationshipSpecialtyStart DateEnd Date Edel Timmonsvannessa Woods, [facility]ISTLA[facility] [address] [place] [address] [facility]06/10/23Team MemberRelationshipSpecialtyStart DateEnd Date Edel Timmonsvannessa Woods, [facility] [address] [place] [address] PCP - [facility]06/10/23Team MemberRelationshipSpecialtyStart DateEnd Date Montrell Timmons, [facility]ISTLA[facility] [address] [place] [address] PCP - General06/10/23Team MemberRelationshipSpecialtyStart DateEnd Date Montrell Timmons, [facility] [address] [place] [address] PCP - General06/10/23Team MemberRelationshipSpecialtyStart DateEnd Date Montrell Timmons, [facility] [address] [place] [address] PCP - [facility]06/10/23Team MemberRelationshipSpecialtyStart DateEnd Date Montrell Timmons, [facility] [address] [place] [address] PCP - General06/10/23Team MemberRelationshipSpecialtyStart DateEnd Date Montrell Timmons, [facility] [address] [place] [address] PCP - [facility]06/10/23Team MemberRelationshipSpecialtyStart DateEnd Date Montrell Timmons, [facility]LA[facility] [address] [place] [address] PCP - General06/10/23Team MemberRelationshipSpecialtyStart DateEnd Date Montrell Timmons, [facility]LA[facility] [address] [place] [address] PCP - General3/10/24Team MemberRelationshipSpecialtyStart DateEnd Date Montrell Timmons, [employer] TECHNOLOGIST-[employer]CRE[employer] PRINTING EQUIPMENT [employer] [address] [place] [address] PCP - General06/10/23 Reason for Visit (unrecogniz ed section and content) ReasonCommentsEye ExamSpecialtyDiagnoses / ProceduresReferred By ContactReferred To ContactOptometry / Ophthalmology Diagnoses Blurry vision, bilateral Montrell Timmons, GLASS TECHNOLOGIST-SCREEN PRINTING EQUIPMENT SETTER [address] [place] [address] Phone: tel: fax: LindyYann, OD [address] [facility] [address] [place] [address] Phone: tel: fax: Referral IDStatusReasonStart DateExpiration DateVisits RequestedVisits [id number] Specialty Services Required [id number] Risk GestationNon-stress TestObesity SpecialtyDiagnoses / ProceduresReferred By ContactReferred To ContactMaternal and Medicine Diagnoses Obesity affecting in second trimester, unspecified obesity type Procedures nonstress test - Maternal Medicine Rao Guadalupe R, DO [address] , [place] [address] [facility]aternal [facility] [address] [place] [address] Referral IDStatusReasonStart DateExpiration DateVisits RequestedVisits [id number] Review/[id number] Check ReasonCommentsProcedurePartial MartixectomyReasonCommentsPost-opmatrixectomy ReasonCommentsDizzinessPre op clearance with YuhasReasonCommentsWell Women Visit ReasonCommentsURIReasonCommentsNon-stress TestObesityReasonCommentsSinus Problem Entered automatically based on patient selection in [place].Reason Onset DateCommentsSleep Lab08/29/2023HSTReasonCommentsSleep ApneaSnoring fatigue SpecialtyDiagnoses / ProceduresReferred By ContactReferred To ContactPulmonary Medicine Diagnoses Fatigue, unspecified type Snoring [facility] [address] [place] [phone] [facility] [address] [address] Referral IDStatusReasonStart DateExpiration DateVisits RequestedVisits [id number] Review Specialty Services Required /[id number] / ProceduresReferred By ContactReferred To Contact Diagnoses Sleep-related breathing disorder Procedures Home sleep study Lorie Johnson, JEANINE [address] [address] Referral IDStatusReasonStart DateExpiration DateVisits RequestedVisits [id number]/28/20245/[id number] of zoloft during pregnancyReasonCommentsSleeping ProblemCompliance visitSet up 09/21/23 DME/MSCSleeping well- voices no concernsReasonCommentsAnnual ExamReasonComments Bkdwkrv1fn degree tearUrinary IncontinenceReasonCommentsNew PatientThe patient is here to establish care for an incisional hernia.ReasonCommentsNew Patient Ingrown ToenailReasonCommentsPainPt states she was diagnosed w/ CTS by [facility] approx 10 yrs. C/o achy pain, stiffness, numbness. Pt states during her her sx worsened. Pt states she has a lot of pain in the wrist and sometimesit is sharp, shooting pain. Pt wears braces at night on occasion. RT>LT NumbnessPt states she was diagnosed w/ CTS by [facility] approx 10 yrs. C/o achy pain, stiffness, numbness. Pt states during her her sx worsened. Pt states she has a lot of pain in the wrist and sometimesit is sharp, shooting pain. Pt wears braces at night on occasion. RT>LTSpecialtyDiagnoses / ProceduresReferred By ContactReferred To ContactOrthopedic Surgery Diagnoses Carpal tunnel syndrome on right Procedures AMB REFERRAL TO ORTHOPAEDIC SURGERY Yadi Yo PA [address] [place] [address] [place] [address] Phone: tel: fax: Mari Issa MD [address] [place] [address] Phone: tel: fax: Referral IDStatusReasonStart DateExpiration DateVisits RequestedVisits [id number] Review/[id number]-fvVxsygd CommentsUltrasoundFibroscanReasonOnset DateCommentsNew Psuscxh3606/04/2024Reason CommentsWeight GainPatient is here today for weight gain. Patient states she has a history of fatty liver diease. Patient denies other GI symptoms.Specialty Diagnoses / ProceduresReferred By ContactReferred To ContactGastroenterology Diagnoses REHMAN (nonalcoholic steatohepatitis) Montrell Timmons, GLASS TECHNOLOGIST-SCREEN PRINTING EQUIPMENT SETTER [address] [place] [address] Phone: tel: fax: [facility] [address] [place] [phone] Phone: tel: fax: Referral IDStatusReasonStart DateExpiration DateVisits RequestedVisits [id number] Review Specialty Services Required /[id number] DateCommentsMed Ccbfaf1606/15/2024ReasonComments Post-opR CTR 06/02/24ReasonCommentsNew PatientHeadacheDizzinessSpecialtyDiagnoses / ProceduresReferred By ContactReferred To ContactNeurology Diagnoses Dizziness Chronic migraine without aura without status migrainosus, not intractable Montrell Timmons, GLASS TECHNOLOGIST-SCREEN PRINTING EQUIPMENT SETTER [address] [place] [address] Phone: tel: fax: [facility] [address] [place] [address] Phone: tel: fax: Referral IDStatusReasonStart DateExpiration DateVisits RequestedVisits [id number] Specialty Services Required [id number]-zhO CTR 06/02/24. 6w post op f/u. States still having carpal tunnel pain radiating up to elbow, Rt Handstill sore and stiff, has been massaging Rt Hand. States hand got infected after stitches were removed, took ATB for itReasonCommentsGenetic EvaluationFamily history of breast cancerSpecialtyDiagnoses / ProceduresReferred By ContactReferred To Contact Genetics Diagnoses Family history of breast cancer Rao Guadalupe, DO [address] [place] [address] [place] [address] Phone: tel: fax: [facility] [address] [facility] [address] [place] [address] Phone: tel: fax: Referral IDStatusReasonStart DateExpiration DateVisits RequestedVisits [id number] Review Specialty Services Required 1ReasonOnset DateCommentsSleep Lab10/22/2024HST OrderReason Onset DateCommentsVerbal Re-Wrwpyvzvgn58/30/2025Genetic testing result disclosureReasonOnset HsblVktfobtzDXBCOZQE34/23/2025LERICALReasonCommentsSore ThroatMost likely strep throat. Low grade fever and slight cough. Swollen neck and lymph nodes. - Enteredby patientReasonCommentsSprains/StrainsEntered by patient rolled her ankle a few weeks ago. Not getting better. Feels like it's getting worse. If doing xray is requesting pregnany test. Left ankle.ReasonOnset DateCommentsSleep Lab12/04/2024PSG OrderReasonCommentsPainNP Lt Ankle. XR 12/02/24. Pt states almost 4 weeks ago was wearing platform sandals and rolled Lt Ankle. Went to on 12/02/24, XR and WB in boot. No prior Sx.SpecialtyDiagnoses / ProceduresReferred By ContactReferred To ContactOrthopaedic Surgery / Orthopedic Surgery Diagnoses Closed fracture of left ankle, initial encounter Iqra Donovan, GLASS TECHNOLOGIST-SCREEN PRINTING EQUIPMENT SETTER [address], [address] [address] Phone: tel: fax: Any Ortega MD [address] [place] [address] Phone: tel: fax: Referral IDStatusReasonStart DateExpiration DateVisits RequestedVisits [id number] Review Specialty Services Required [id number] ProblemReasonCommentsFollow-upXR today. WBAT in bootReasonCommentsProcedureLeft lateral hallux matrixReasonComments Post-opLeft lateral hallux matrix FOR RECORDS PERTAINING TO PATIENTS WHO ARE [...] BE BASED ON THE PRIMARY CLINICAL RECORDS. [facility] [employer] [facility]. provides no warranty or guarantee of the accuracy or completeness of information in this document.
[2025-01-23 13:08] LABS: Rapid Plasma Reagin, Quant Non Reactive titer (NonRea<1:1)
== END 2025-01-21 15:19 | disposition home or self-care (01) ==
LOC: LAB 15:19
PROVIDERS: PCP Family Medicine; Visit Provider Obstetrics & Gynecology
DX: Z20.2 Contact with and (suspected) exposure to infections with a predominantly sexual mode of transmission (principal)
CPT/HCPCS: 36415; 86592; 87340; 87389